=== PATIENT | female | born 1950 | race Caucasian/White ===

== ENCOUNTER 2022-09-15 15:08 | Observation (INO) ==
[2022-09-15 16:11] LABS: Basophils # (auto) 0.03 K/uL (0-0.2); Basophils % (auto) 0.3 %; Eosinophils # (auto) 0.09 K/uL (0-0.50); Hematocrit (blood only) 35.4 % (37.0-47.0); Hemoglobin 13.4 g/dl (12.0-16.0); Immature Granulocytes # (auto) 0.02 K/uL (0.01-0.20); Immature Granulocytes % (auto) 0.2 %; Lymphocytes # (auto) 1.46 K/uL (1.2-3.4); Lymphocytes % (auto) 15.6 %; Mean Corpuscular Hemoglobin 33.3 pg (25.0-34.0); Mean Corpuscular Hgb Conc 37.9 g/dL (32.0-36.0); Mean Corpuscular Volume 87.8 fL (80.0-100.0); Mean Platelet Volume 9.5 fL (9.4-12.4); Monocytes # (auto) 0.81 K/uL (0.11-0.59); Monocytes % (auto) 8.7 %; Neutrophils # (auto) 6.92 K/uL (1.40-6.50); Neutrophils % (auto) 74.2 %; Platelet Count 228 K/uL (130-400); RDW Standard Deviation 41.7 fL (36.4-46.3); Red Blood Count 4.03 M/uL (4.20-5.40); White Blood Count 9.33 K/ul (4.8-10.8)
[2022-09-15 16:29] LABS: Albumin Level 4.1 gm/dl (3.4-5.0); Bilirubin,Total 0.7 mg/dl (0.2-1.0); Calcium 8.7 mg/dl (8.6-10.3); Potassium 2.9 mmol/L (3.5-5.1)
[2022-09-15] MEDS ORDERED: SODIUM CHLORIDE 0.9% 1000ML 1,000 ML IV ONE (16:31)
[2022-09-15] MEDS ORDERED: POTASSIUM CHLORIDE CRTAB 20 MEQ TABCR PO STA (16:33)
[2022-09-15 16:35] LABS: Albumin Globulin Ratio 1.8 (0.9-2); BUN Creatinine Ratio 14.3 (10-20); Creatinine Clr Calc Pharmacy 42.9 ml/min; Est GFR (African American) 68.2 ml/min; Est GFR (Non-African American) 58.9 ml/min; Globulin 2.3 gm/dl (2.5-4.0); Total Protein 6.4 gm/dl (6.0-8.3)
[2022-09-15] MEDS: POTASSIUM CHLORIDE / WTR 10 MEQ/100 ML PLCT IV SCH ×2 (17:16→18:47)
--- NOTE | 2022-09-15 17:21 | XRay Report ---
XR chest 1V portable HISTORY: 71 years-old Female weakness acute weakness COMPARISON: CTA chest 08/23/2022 TECHNIQUE: AP view of the chest FINDINGS: Cardiomediastinal and hilar silhouettes are within normal limits. Atherosclerosis of the aorta. Emphy sema. There is no pneumothorax, pleural effusion, airspace consolidation or overt pulmonary edema. De generative changes of the shoulders and spine. Cardiac appearance of the distal right clavicle and AC joint. IMPRESSION: Emphysema without acute process. ACT 112: Negative or not required by law. The above report was generated using voice recognition software. It may contain grammatical, syntax o r spelling errors. Electronically signed by: Olu Villagran M.D. 09/15/2022 5:19 PM
[2022-09-15 18:12] LABS: Phosphorus 3.2 mg/dl (2.5-4.9)
[2022-09-15 18:33] LABS: Appearance Urine Clear (Clear); Bacteria Urine Automated Negative (Negative); Bilirubin Urine Negative (Negative); Blood Urine Negative (Negative); Cast Urine Automated 0 /lpf (0-5); Color Urine Yellow; Glucose Urine UA Negative (Negative); Ketones Urine 1+ (Negative); Leukocyte Esterase Urine 1+ (Negative); Nitrite Urine Negative (Negative); Protein Urine Negative (Negative); RBC Urine Automated 0-4 /hpf (0-4); Specific Gravity Urine 1.008 (1.000-1.030); Urobilinogen Urine Negative (Negative); pH Urine 7.5 (4.5-7.5)
--- NOTE | 2022-09-15 19:24 | Emergency Department Note ---
Impression & Plan Recurrent falls, Hyponatremia, Hypokalemia ED Provider Note NAME: YA RIVERA AGE: 71 SEX: F ARRIVES VIA: Walk-In INFORMANT: Patient ED PROVIDER(S): Demetrio Cabral MD CHIEF COMPLAINT: Intermittent weakness and falls PLAN: Disposition: Admit MEDICAL DECISION MAKING: The patient is a pleasant 71-year-old woman with a past medical history of hypertension, AAA, hyperlipidemia, chronic abdominal pain, anxiety on Klonopin who presents to the emergency department via walk-in for evaluation of symptoms of generalized weakness that occurs intermittently where she feels she does not have the strength to keep her self up and has had recurrent falls over the past month. She has been seen in this emergency department over the past month for abdominal pain but had not mentioned her weakness and falls. The patient reports she fell today onto her buttocks but was able to ambulate afterwards. Denies any head strike or loss of consciousness. She denies any chest pain, shortness of breath, cough, congestion. She reports her abdominal pain is not currently active. On arrival the patient is fatigued appearing but no acute distress, afebrile with stable vital signs. She appears clinically dry. She has no focal neurologic deficits. EKG without overt acute ischemia. CXR negative for acute cardiopulmonary process. X-ray of the pelvis and left hip were ordered however the patient declined these images as she only felt she had mild bruising and did not think anything was broken as she has been able to ambulate. WBC, hemoglobin and platelets within normal limits. Chemistry without metabolic acidosis. Sodium 129, similar to prior range of values and potassium 2.9, also similar to prior values. LFTs unremarkable. CPK within normal limits. TSH within normal limits. UA without evidence of infection with epithelial cells present. Serum and urine osmolality are diluted with suspicion for increased free water which may be related to the patient's chronic abdominal symptoms with poor oral intake as well as possible component of anxiety. COVID-19 RNA, ANIRUDH test was negative. Given the patient's recurrent symptoms of weakness leading to fall she does agree with plan for admission for further management where it is suspected her symptoms may be related to her electrolyte abnormalities. Case was discussed with Dr. Cassidy, [facility] hospitalist who will evaluate the patient for admission. Triage Nursing notes reviewed and agree them. Prior/outside medical records reviewed Vital Signs: reviewed Differential diagnosis: Infection, dehydration, metabolic abnormality, hypo/hyperglycemia, electrolyte disturbance, anemia, hypoxia, cardiac sources, intracerebral event, toxicologic, neurologic, as well as other pathologies. ER treatment provided: See below. Diagnostics interpreted by me: ECG: Normal sinus rhythm, 72 bpm, no ectopy, nonspecific ST abnormality, no overt ST elevation or depression, QTc 464, QRS 74 Cardiac Monitoring: An order for continuous cardiac monitoring was placed and demonstrated Normal sinus rhythm, 72 bpm, no ectopy Laboratory studies: See below Imaging studies: See below Consultation(s): Case was discussed with Dr. Cassidy, [facility] Hospitalist who will evaluate the patient for admission. HPI: The patient is a pleasant 71-year-old woman with a past medical history of hypertension, AAA, hyperlipidemia, chronic abdominal pain, anxiety on Klonopin who presents to the emergency department via walk-in for evaluation of symptoms of generalized weakness that occurs intermittently where she feels she does not have the strength to keep her self up and has had recurrent falls over the past month. She has been seen in this emergency department over the past month for abdominal pain but had not mentioned her weakness and falls. The patient reports she fell today onto her buttocks but was able to ambulate afterwards. Denies any head strike or loss of consciousness. She denies any chest pain, shortness of breath, cough, congestion. She reports her abdominal pain is not currently active. ROS: See above HPI for pertinent positives & negatives. A total of 10 systems reviewed and were otherwise negative. VITALS:See Below PHYSICAL EXAMINATION: GENERAL: Awake, alert, fatigued/anxious-appearing, in no distress HENT: Normocephalic, atraumatic. Oropharynx with dry mucous membranes and otherwise unremarkable. EYES: Normal conjunctiva. Sclera non-icteric. EOMI. No nystamgus. PEARRL. NECK: Supple. No nuchal rigidity. FROM. No JVD. RESPIRATORY: Clear to auscultation. CARDIAC: Regular rate, normal rhythm. Extremities warm and well perfused. Pulses equal. ABDOMEN: Soft, non-distended. No tenderness to palpation. No rebound or guarding. No masses. RECTAL: Deferred. MUSCULOSKELETAL: Chest examination reveals no tenderness. The back is s ymmetrical on inspection without obvious abnormality. There is no CVA tenderness to palpation. No joint edema. LOWER EXTREMITIES: Calves are equal size bilaterally and non-tender. No edema. No discoloration. NEURO: No focal sensory or motor deficits noted. 5/5 strength and SILT x 4 extremities. Cerebellar function intact including [id number], alternating palms, [id number]. DTRs wnl. No clonus. SKIN: No rash or jaundice noted. Demetrio Cabral MD Past Med/Surg History Medical History AAA (abdominal aortic aneurysm) Anxiety COPD (chronic obstructive pulmonary disease) Dyslipidemia GERD (gastroesophageal reflux disease) Hypertension Surgical History S/P tubal ligation Family History Other Diabetes Social History Smoking Status: Current every day smoker Tobacco Type: Cigarettes packs per day: 0.5; Cigarettes Per Day: 10; Second Hand Exposure: No; Do You Dip or Chew Tobacco: No; Tobacco Cessation Education Requested by Patient: Yes Hx Alcohol Use: No Hx Substance Use: No Preferred Language: Turkmen Communication Ability: Effective Indoor Plant Technician Required: No Beliefs That Will Affect Care: None Current Living Situation: Alone Other Information That Helps Us Care for You: No Feels Safe at Home: Yes Safety Concerns: Feels Safe At This Time Assistive Devices: None Allergies Allergies Allergy/AdvReac Type Severity Reaction Status Date / Time amoxicillin [From Augmentin] AdvReac Intermediate ABD Verified 09/09/22 16:31 PAIN/VOMITING azithromycin [From Zithromax] AdvReac Intermediate Diarrhea Verified 09/09/22 16:31 clavulanic acid AdvReac Intermediate ABD Verified 09/09/22 16:31 [From Augmentin] PAIN/VOMITING doxycycline AdvReac Intermediate Diarrhea Verified 09/09/22 16:31 Macrolide Antibiotics AdvReac Intermediate Diarrhea Verified 09/09/22 16:31 salicylates AdvReac Intermediate INTOLERANCE Verified 09/09/22 16:31 Tetracyclines AdvReac Intermediate Diarrhea Verified 09/09/22 16:31 Home Meds Home Medications Medication Instructions Recorded Confirmed atenolol 25 mg tablet 25 mg PO HS 04/14/19 09/15/22 multivitamin 1 tab PO QAM 04/14/19 09/15/22 simvastatin 20 mg tablet (Zocor) 20 mg PO HS 04/14/19 09/15/22 hydrochlorothiazide 12.5 mg capsule 12.5 mg PO QAM 04/21/22 09/15/22 albuterol sulfate 90 mcg/actuation 2 puff inhalation BID PRN 08/23/22 09/15/22 aerosol inhaler Shortness Of Breath Or Wheezing clonazepam 0.5 mg tablet 0.25 mg PO BID PRN Anxiety 08/23/22 09/15/22 escitalopram oxalate 10 mg tablet 10 mg PO QAM 08/23/22 09/15/22 trazodone 50 mg tablet 50 mg PO HS PRN Insomnia 08/23/22 09/15/22 cyclobenzaprine 5 mg tablet 5 mg PO TID PRN MUSCLE SPASMS 09/09/22 09/15/22 dicyclomine 10 mg capsule 20 mg PO .Q4-6H PRN Abdominal Pain 09/09/22 09/15/22 pantoprazole 20 mg tablet,delayed 20 mg PO QAM 09/09/22 09/15/22 release hydroxyzine HCl 25 mg tablet 25 mg PO Q6 PRN Anxiety 09/15/22 09/15/22 mirtazapine 15 mg tablet 15 mg PO HS 09/15/22 09/15/22 Previous Rx's Medication Instructions Recorded promethazine 25 mg tablet 25 mg PO Q6H PRN nausea and 08/23/22 vomiting #14 tabs Results & Data (ED) Vital Signs Vital Signs - 24 hr 09/15/22 15:12 09/15/22 15:45 09/15/22 16:48 Temperature 36.8 C Temperature Source Temporal Artery Scan Pulse Rate 88 78 Pulse Rate [Left Apical] 76 Respiratory Rate 20 16 Respiratory Effort / Characteristics Non-Labored Spontaneous Respiratory Depth Normal Blood Pressure 128/78 Blood Pressure [Right Arm] 176/82 H Blood Pressure Mean 94 Blood Pressure Mean [Right Arm] 113 Pulse Oximetry 98 99 Oxygen Delivery Method Room Air Room Air Sepsis Recent Fever Within 48 Hours No Sepsis New/Unexplained Change in Mental Status No Sepsis Action Taken by Nursing No Action Required 09/15/22 16:00 09/15/22 16:30 09/15/22 17:00 Temperature Temperature Source Pulse Rate 76 75 74 Pulse Rate [Left Apical] Respiratory Rate 20 19 21 Respiratory Effort / Characteristics Respiratory Depth Blood Pressure 182/68 H 109/78 168/85 H Blood Pressure [Right Arm] Blood Pressure Mean 106 88 112 Blood Pressure Mean [Right Arm] Pulse Oximetry 98 94 98 Oxygen Delivery Method Room Air Room Air Room Air Sepsis Recent Fever Within 48 Hours Sepsis New/Unexplained Change in Mental Status Sepsis Action Taken by Nursing 09/15/22 17:30 09/15/22 18:09 09/15/22 18:39 Temperature Temperature Source Pulse Rate 75 68 68 Pulse Rate [Left Apical] Respiratory Rate 23 20 21 Respiratory Effort / Characteristics Respiratory Depth Blood Pressure 176/83 H 162/93 H 183/99 H Blood Pressure [Right Arm] Blood Pressure Mean 114 116 127 Blood Pressure Mean [Right Arm] Pulse Oximetry 96 100 98 Oxygen Delivery Method Room Air Room Air Room Air Sepsis Recent Fever Within 48 Hours Sepsis New/Unexplained Change in Mental Status Sepsis Action Taken by Nursing 09/15/22 19:01 09/15/22 19:30 09/15/22 20:00 Temperature Temperature Source Pulse Rate 74 75 69 Pulse Rate [Left Apical] Respiratory Rate 24 22 24 Respiratory Effort / Characteristics Respiratory Depth Blood Pressure 221/104 H 230/137 H 204/97 H Blood Pressure [Right Arm] Blood Pressure Mean 143 168 132 Blood Pressure Mean [Right Arm] Pulse Oximetry 99 99 97 Oxygen Delivery Method Room Air Room Air Room Air Sepsis Recent Fever Within 48 Hours Sepsis New/Unexplained Change in Mental Status Sepsis Action Taken by Nursing 09/15/22 20:30 Temperature Temperature Source Pulse Rate 76 Pulse Rate [Left Apical] Respiratory Rate 16 Respiratory Effort / Characteristics Respiratory Depth Blood Pressure 211/99 H Blood Pressure [Right Arm] Blood Pressure Mean 136 Blood Pressure Mean [Right Arm] Pulse Oximetry 98 Oxygen Delivery Method Room Air Sepsis Recent Fever Within 48 Hours Sepsis New/Unexplained Change in Mental Status Sepsis Action Taken by Nursing Laboratory Data Attestation: I reviewed the patient's lab results. 09/15/22 15:51 09/15/22 15:51 Lab Results 09/15/22 09/15/22 09/15/22 Range/Units 15:51 15:51 15:51 WBC 9.33 (4.8-10.8) K/ul RBC 4.03 L (4.20-5.40) M/uL Hgb 13.4 (12.0-16.0) g/dl Hct 35.4 L (37.0-47.0) % MCV 87.8 (80.0-100.0) fL MCH 33.3 (25.0-34.0) pg MCHC 37.9 H (32.0-36.0) g/dL RDW Std Deviation 41.7 (36.4-46.3) fL RDW Coeff of Yamile 13.0 (11.5-14.5) % Plt Count 228 (130-400) K/uL MPV 9.5 (9.4-12.4) fL Immature Gran % (Auto) 0.2 % Neut % (Auto) 74.2 % Lymph % (Auto) 15.6 % Mclean % (Auto) 8.7 % Eos % (Auto) 1.0 % Baso % (Auto) 0.3 % Neut # (Auto) 6.92 H (1.40-6.50) K/uL Lymph # (Auto) 1.46 (1.2-3.4) K/uL Mclean # (Auto) 0.81 H (0.11-0.59) K/uL Eos # (Auto) 0.09 (0-0.50) K/uL Baso # (Auto) 0.03 (0-0.2) K/uL Immature Gran # (Auto) 0.02 (0.01-0.20) K/uL Sodium 129 L (136-145) mmol/L Potassium 2.9 L (3.5-5.1) mmol/L Chloride 91 L (98-107) mmol/L Carbon Dioxide 28 (21-32) mmol/L Anion Gap 10 (3-11) BUN 14 (6-23) mg/dl Creatinine 0.98 (0.6-1.2) mg/dl Est Cr Clr Drug Dosing 42.9 ml/min Est GFR ( Amer) 68.2 ml/min Est GFR (Non-Af Amer) 58.9 ml/min BUN/Creatinine Ratio 14.3 (10-20) Glucose 102 H (70-99(Fasting)) mg/dl Osmolality (280-300) mOsm/kg Lactate (0.4-2.0) mmol/L Calcium 8.7 (8.6-10.3) mg/dl Phosphorus 3.2 (2.5-4.9) mg/dl Magnesium 2.0 (1.7-2.4) mg/dl Total Bilirubin 0.7 (0.2-1.0) mg/dl AST 15 (13-39) U/L ALT 14 (7-52) U/L Alkaline Phosphatase 43 (34-104) U/L Total Creatine Kinase 75 (26-192) U/L Total Protein 6.4 (6.0-8.3) gm/dl Albumin 4.1 (3.4-5.0) gm/dl Globulin 2.3 L (2.5-4.0) gm/dl Albumin/Globulin Ratio 1.8 (0.9-2) TSH (0.300-4.500) uIu/ml Urine Color Urine Appearance (Clear) Urine pH (4.5-7.5) Ur Specific [place] (1.000-1.030) Urine Protein (Negative) Urine Glucose (UA) (Negative) Urine Ketones (Negative) Urine Blood (Negative) Urine Nitrite (Negative) Urine Bilirubin (Negative) Urine Urobilinogen (Negative) Ur Leukocyte Esterase (Negative) Urine WBC (Auto) (0-5) /hpf Urine RBC (Auto) (0-4) /hpf U Hyaline Cast (Auto) (0-5) /lpf U Epithel Cells (Auto) (0-5) /lpf Urine Bacteria (Auto) (Negative) Urine Osmolality (500-800) mOsm/kg Ur Random Sodium mmol/L SARS-CoV-2, RNA, NAAT (NEGATIVE) 09/15/22 09/15/22 09/15/22 Range/Units 15:51 15:51 17:27 WBC (4.8-10.8) K/ul RBC (4.20-5.40) M/uL Hgb (12.0-16.0) g/dl Hct (37.0-47.0) % MCV (80.0-100.0) fL MCH (25.0-34.0) pg MCHC (32.0-36.0) g/dL RDW Std Deviation (36.4-46.3) fL RDW Coeff of Yamile (11.5-14.5) % Plt Count (130-400) K/uL MPV (9.4-12.4) fL Immature Gran % (Auto) % Neut % (Auto) % Lymph % (Auto) % Mclean % (Auto) % Eos % (Auto) % Baso % (Auto) % Neut # (Auto) (1.40-6.50) K/uL Lymph # (Auto) (1.2-3.4) K/uL Mclean # (Auto) (0.11-0.59) K/uL Eos # (Auto) (0-0.50) K/uL Baso # (Auto) (0-0.2) K/uL Immature Gran # (Auto) (0.01-0.20) K/uL Sodium (136-145) mmol/L Potassium (3.5-5.1) mmol/L Chloride (98-107) mmol/L Carbon Dioxide (21-32) mmol/L Anion Gap (3-11) BUN (6-23) mg/dl Creatinine (0.6-1.2) mg/dl Est Cr Clr Drug Dosing ml/min Est GFR ( Amer) ml/min Est GFR (Non-Af Amer) ml/min BUN/Creatinine Ratio (10-20) Glucose (70-99(Fasting)) mg/dl Osmolality 266 L (280-300) mOsm/kg Lactate (0.4-2.0) mmol/L Calcium (8.6-10.3) mg/dl Phosphorus (2.5-4.9) mg/dl Magnesium (1.7-2.4) mg/dl Total Bilirubin (0.2-1.0) mg/dl AST (13-39) U/L ALT (7-52) U/L Alkaline Phosphatase (34-104) U/L Total Creatine Kinase (26-192) U/L Total Protein (6.0-8.3) gm/dl Albumin (3.4-5.0) gm/dl Globulin (2.5-4.0) gm/dl Albumin/Globulin Ratio (0.9-2) TSH 0.548 (0.300-4.500) uIu/ml Urine Color Urine Appearance (Clear) Urine pH (4.5-7.5) Ur Specific [place] (1.000-1.030) Urine Protein (Negative) Urine Glucose (UA) (Negative) Urine Ketones (Negative) Urine Blood (Negative) Urine Nitrite (Negative) Urine Bilirubin (Negative) Urine Urobilinogen (Negative) Ur Leukocyte Esterase (Negative) Urine WBC (Auto) (0-5) /hpf Urine RBC (Auto) (0-4) /hpf U Hyaline Cast (Auto) (0-5) /lpf U Epithel Cells (Auto) (0-5) /lpf Urine Bacteria (Auto) (Negative) Urine Osmolality (500-800) mOsm/kg Ur Random Sodium mmol/L SARS-CoV-2, RNA, NAAT NEGATIVE (NEGATIVE) 09/15/22 09/15/22 09/15/22 Range/Units 18:20 18:20 18:20 WBC (4.8-10.8) K/ul RBC (4.20-5.40) M/uL Hgb (12.0-16.0) g/dl Hct (37.0-47.0) % MCV (80.0-100.0) fL MCH (25.0-34.0) pg MCHC (32.0-36.0) g/dL RDW Std Deviation (36.4-46.3) fL RDW Coeff of Yamile (11.5-14.5) % Plt Count (130-400) K/uL MPV (9.4-12.4) fL Immature Gran % (Auto) % Neut % (Auto) % Lymph % (Auto) % Mclean % (Auto) % Eos % (Auto) % Baso % (Auto) % Neut # (Auto) (1.40-6.50) K/uL Lymph # (Auto) (1.2-3.4) K/uL Mclean # (Auto) (0.11-0.59) K/uL Eos # (Auto) (0-0.50) K/uL Baso # (Auto) (0-0.2) K/uL Immature Gran # (Auto) (0.01-0.20) K/uL Sodium (136-145) mmol/L Potassium (3.5-5.1) mmol/L Chloride (98-107) mmol/L Carbon Dioxide (21-32) mmol/L Anion Gap (3-11) BUN (6-23) mg/dl Creatinine (0.6-1.2) mg/dl Est Cr Clr Drug Dosing ml/min Est GFR ( Amer) ml/min Est GFR (Non-Af Amer) ml/min BUN/Creatinine Ratio (10-20) Glucose (70-99(Fasting)) mg/dl Osmolality (280-300) mOsm/kg Lactate (0.4-2.0) mmol/L Calcium (8.6-10.3) mg/dl Phosphorus (2.5-4.9) mg/dl Magnesium (1.7-2.4) mg/dl Total Bilirubin (0.2-1.0) mg/dl AST (13-39) U/L ALT (7-52) U/L Alkaline Phosphatase (34-104) U/L Total Creatine Kinase (26-192) U/L Total Protein (6.0-8.3) gm/dl Albumin (3.4-5.0) gm/dl Globulin (2.5-4.0) gm/dl Albumin/Globulin Ratio (0.9-2) TSH (0.300-4.500) uIu/ml Urine Color Yellow Urine Appearance Clear (Clear) Urine pH 7.5 (4.5-7.5) Ur Specific [place] 1.008 (1.000-1.030) Urine Protein Negative (Negative) Urine Glucose (UA) Negative (Negative) Urine Ketones 1+ H (Negative) Urine Blood Negative (Negative) Urine Nitrite Negative (Negative) Urine Bilirubin Negative (Negative) Urine Urobilinogen Negative (Negative) Ur Leukocyte Esterase 1+ H (Negative) Urine WBC (Auto) 1-5 (0-5) /hpf Urine RBC (Auto) 0-4 (0-4) /hpf U Hyaline Cast (Auto) 0 (0-5) /lpf U Epithel Cells (Auto) 5-10 H (0-5) /lpf Urine Bacteria (Auto) Negative (Negative) Urine Osmolality 260 L (500-800) mOsm/kg Ur Random Sodium 40 mmol/L SARS-CoV-2, RNA, NAAT (NEGATIVE) 09/15/22 09/15/22 Range/Units 20:41 20:41 WBC (4.8-10.8) K/ul RBC (4.20-5.40) M/uL Hgb (12.0-16.0) g/dl Hct (37.0-47.0) % MCV (80.0-100.0) fL MCH (25.0-34.0) pg MCHC (32.0-36.0) g/dL RDW Std Deviation (36.4-46.3) fL RDW Coeff of Yamile (11.5-14.5) % Plt Count (130-400) K/uL MPV (9.4-12.4) fL Immature Gran % (Auto) % Neut % (Auto) % Lymph % (Auto) % Mclean % (Auto) % Eos % (Auto) % Baso % (Auto) % Neut # (Auto) (1.40-6.50) K/uL Lymph # (Auto) (1.2-3.4) K/uL Mclean # (Auto) (0.11-0.59) K/uL Eos # (Auto) (0-0.50) K/uL Baso # (Auto) (0-0.2) K/uL Immature Gran # (Auto) (0.01-0.20) K/uL Sodium 130 L (136-145) mmol/L Potassium (3.5-5.1) mmol/L Chloride (98-107) mmol/L Carbon Dioxide (21-32) mmol/L Anion Gap (3-11) BUN (6-23) mg/dl Creatinine (0.6-1.2) mg/dl Est Cr Clr Drug Dosing ml/min Est GFR ( Amer) ml/min Est GFR (Non-Af Amer) ml/min BUN/Creatinine Ratio (10-20) Glucose (70-99(Fasting)) mg/dl Osmolality (280-300) mOsm/kg Lactate 0.8 (0.4-2.0) mmol/L Calcium (8.6-10.3) mg/dl Phosphorus (2.5-4.9) mg/dl Magnesium (1.7-2.4) mg/dl Total Bilirubin (0.2-1.0) mg/dl AST (13-39) U/L ALT (7-52) U/L Alkaline Phosphatase (34-104) U/L Total Creatine Kinase (26-192) U/L Total Protein (6.0-8.3) gm/dl Albumin (3.4-5.0) gm/dl Globulin (2.5-4.0) gm/dl Albumin/Globulin Ratio (0.9-2) TSH (0.300-4.500) uIu/ml Urine Color Urine Appearance (Clear) Urine pH (4.5-7.5) Ur Specific [place] (1.000-1.030) Urine Protein (Negative) Urine Glucose (UA) (Negative) Urine Ketones (Negative) Urine Blood (Negative) Urine Nitrite (Negative) Urine Bilirubin (Negative) Urine Urobilinogen (Negative) Ur Leukocyte Esterase (Negative) Urine WBC (Auto) (0-5) /hpf Urine RBC (Auto) (0-4) /hpf U Hyaline Cast (Auto) (0-5) /lpf U Epithel Cells (Auto) (0-5) /lpf Urine Bacteria (Auto) (Negative) Urine Osmolality (500-800) mOsm/kg Ur Random Sodium mmol/L SARS-CoV-2, RNA, NAAT (NEGATIVE) Administered Medications Melatonin (Melatonin 3 Mg Tab) 3 mg PO HS PRN PRN Reason: Sleep Stop: 10/16/22 00:00 Last Admin: 09/16/22 01:03 Dose: 3 mg Documented By: DELONTE Mirtazapine (Mirtazapine Tab 15 Mg Tab) 15 mg PO HS KEELY Stop: 10/15/22 23:35 Last Admin: 09/16/22 01:04 Dose: 15 mg Documented By: DELONTE Simvastatin (Simvastatin 20 Mg Tab) 20 mg PO HS [facility] Stop: 10/15/22 23:35 Last Admin: 09/16/22 01:04 Dose: 20 mg Documented By: DELONTE Discontinued Medications Atenolol (Atenolol 25 Mg Tablet) 25 mg PO NOW STA Stop: 09/15/22 20:11 Last Admin: 09/15/22 20:38 Dose: 25 mg Documented By: TYRONE Sodium Chloride (Nss 1000ml) 1,000 mls @ 999 mls/hr IV .Q1H1M ONE Stop: 09/15/22 17:31 Last Infusion: 09/15/22 20:03 Dose: 0 mls/hr Documented By: Admin: 09/15/22 17:17 Dose: 999 mls/hr Documented By: TYRONE Potassium Chloride (K Jb / Wtr) 10 meq in 100 mls @ 100 mls/hr IV Q1H KEELY Stop: 09/15/22 18:44 Last Infusion: 09/15/22 20:03 Dose: 0 mls/hr Documented By: Admin: 09/15/22 18:47 Dose: 100 mls/hr Documented By: Infusion: 09/15/22 18:16 Dose: 100 mls/hr Documented By: Admin: 09/15/22 17:16 Dose: 100 mls/hr Documented By: TYRONE Potassium Chloride (Potassium Chloride Crtab 20 Meq Tabcr) 40 meq PO NOW STA Stop: 09/15/22 16:34 Last Admin: 09/15/22 17:16 Dose: 40 meq Documented By: OSITO Imaging Data Radiologist's Impression: Chest X-Ray 09/15/22 16:32 XR chest 1V portable HISTORY: 71 years-old Female weakness acute weakness COMPARISON: CTA chest 08/23/2022 TECHNIQUE: AP view of the chest FINDINGS: Cardiomediastinal and hilar silhouettes are within normal limits. Atherosclerosis of the aorta. Emphysema. There is no pneumothorax, pleural effusion, airspace consolidation or overt pulmonary edema. Degenerative changes of the shoulders and spine. Cardiac appearance of the distal right clavicle and AC joint. IMPRESSION: Emphysema without acute process. ACT 112: Negative or not required by law. The above report was generated using voice recognition software. It may contain grammatical, syntax or spelling errors. Electronically signed by: Olu Villagran M.D. 09/15/2022 5:19 PM Discharge Plan Visit Data Chief Complaint: Fall Stated Complaint: FELL AND WANTS AN EVAL ED Provider: Demetrio Cabral Discharge Problem: Recurrent falls, Hyponatremia, Hypokalemia Patient Disposition: Admitted As Inpatient Discharge Instructions Interventions: ED Discharge Assessment Last Done: 09/15/22 22:49
--- NOTE | 2022-09-15 19:51 | History & Physical Report ---
Date of Service September 15, 2022 Assessment & Plan (1) Hyponatremia: (2) Hypokalemia: (3) Recurrent falls: (4) Hypertension: (5) Dyslipidemia: (6) COPD (chronic obstructive pulmonary disease): (7) GERD (gastroesophageal reflux disease): (8) Anxiety: Plan: Assessment and plan per Dr Cassidy. See addendum History of Present Illness Chief Complaint: Fall Primary Care Provider: Adriel Whitaker MD Patient is 71-year-old female with PMH HTN, dyslipidemia, GERD, anxiety, AAA, COPD presented to ER with c/o recurrent falls x 1 month. Patient states for the past month has been falling almost daily. States her arms will start shaking and then her legs feel "wobbly" and then she will fall. Denies any dizziness, shortness of breath, chest pain prior to fall. This can occur shortly after getting up from a seated position or after walking for a prolonged time. Patient states today was standing at counter trying to cook when her legs felt weak and she fell. Patient states today had some pain to buttocks. Prior falls denies any known injury. Patient states for the past 4 months does not have an appetite and has had decreased oral intake. She states she typically has piece of toast for breakfast and some saltines for lunch, sometimes will eat dinner but most the time does not. Has been drinking 1 Ensure a day. Drinks approximately 32 ounces of water a day, 2 cups coffee. She states she has lost approximately 30 pounds over the past 4 months. Has been having mid abdominal pain intermittently. Seen in ER and had CT scan abdomen pelvis on 08/23/2022. Patient states followed up with PCP and has colonoscopy scheduled in the near future. Denies any abdominal pain currently. She states that she had been taking ibuprofen for her belly pain however provider is now concerned that may be causing some abdominal pain as well. Patient is now taking Protonix. Denies fever/chills, diaphoresis, N/V/D/C, AVILA, dizziness, syncope, vision changes, neck pain, CP, SOB, orthopnea, palpitations, cough, sore throat, choking, otalgia, rhinorrhea, paresthesias, extremity edema, rashes, urinary symptoms. Allergies Allergy/AdvReac Type Severity Reaction Status Date / Time amoxicillin [From Augmentin] AdvReac Intermediate ABD Verified 09/09/22 16:31 PAIN/VOMITING azithromycin [From Zithromax] AdvReac Intermediate Diarrhea Verified 09/09/22 16:31 clavulanic acid AdvReac Intermediate ABD Verified 09/09/22 16:31 [From Augmentin] PAIN/VOMITING doxycycline AdvReac Intermediate Diarrhea Verified 09/09/22 16:31 Macrolide Antibiotics AdvReac Intermediate Diarrhea Verified 09/09/22 16:31 salicylates AdvReac Intermediate INTOLERANCE Verified 09/09/22 16:31 Tetracyclines AdvReac Intermediate Diarrhea Verified 09/09/22 16:31 Home Medications Medication Instructions Recorded Confirmed Type atenolol 25 mg tablet 25 mg PO HS 04/14/19 09/15/22 History multivitamin 1 tab PO QAM 04/14/19 09/15/22 History simvastatin 20 mg tablet (Zocor) 20 mg PO HS 04/14/19 09/15/22 History hydrochlorothiazide 12.5 mg capsule 12.5 mg PO QAM 04/21/22 09/15/22 History albuterol sulfate 90 mcg/actuation 2 puff inhalation BID PRN 08/23/22 09/15/22 History aerosol inhaler Shortness Of Breath Or Wheezing clonazepam 0.5 mg tablet 0.25 mg PO BID PRN Anxiety 08/23/22 09/15/22 History escitalopram oxalate 10 mg tablet 10 mg PO QAM 08/23/22 09/15/22 History promethazine 25 mg tablet 25 mg PO Q6H PRN nausea and 08/23/22 09/15/22 Rx vomiting #14 tabs trazodone 50 mg tablet 50 mg PO HS PRN Insomnia 08/23/22 09/15/22 History cyclobenzaprine 5 mg tablet 5 mg PO TID PRN MUSCLE SPASMS 09/09/22 09/15/22 History dicyclomine 10 mg capsule 20 mg PO .Q4-6H PRN Abdominal Pain 09/09/22 09/15/22 History pantoprazole 20 mg tablet,delayed 20 mg PO QAM 09/09/22 09/15/22 History release hydroxyzine HCl 25 mg tablet 25 mg PO Q6 PRN Anxiety 09/15/22 09/15/22 History mirtazapine 15 mg tablet 15 mg PO HS 09/15/22 09/15/22 History Past Med/Surg History Medical History AAA (abdominal aortic aneurysm) Anxiety COPD (chronic obstructive pulmonary disease) Dyslipidemia GERD (gastroesophageal reflux disease) Hypertension Surgical History S/P tubal ligation Family History Other Diabetes Social History Smoking Status: Current every day smoker Tobacco Type: Cigarettes packs per day: 0.5; Cigarettes Per Day: 10; Second Hand Exposure: No; Do You Dip or Chew Tobacco: No; Tobacco Cessation Education Requested by Patient: Yes Hx Alcohol Use: No Hx Substance Use: No Preferred Language: Azeri Communication Ability: Effective D[employer] Manager Required: No Beliefs That Will Affect Care: None Current Living Situation: Alone Other Information That Helps Us Care for You: No Feels Safe at Home: Yes Safety Concerns: Feels Safe At This Time Assistive Devices: None Review of Systems Review of Systems: All systems reviewed & are unremarkable except as noted in HPI & below Physical Exam Physical Exam: General: no distress, thin, appears older than stated age Head: normocephalic, atraumatic Eyes: conjunctiva non-injected, anicteric ENT: normal inspection external ears, nose, mucous membranes moist Neck: supple, trachea midline Lungs: clear, no respiratory distress, no wheezing/rhonchi/rales CV: RRR, + systolic murmur, no pretibial edema Abd: normal BS, soft, non-tender Ext: no cyanosis, no calf tenderness Neuro: A&O x 3, no focal deficits noted, normal affect Skin: warm, dry Results & Data Results & Data Vital Signs (Past 12 Hours) Vital Signs Temp Pulse Pulse Resp BP BP Pulse Ox 09/15/22 18:39 68 21 183/99 H 98 09/15/22 18:09 68 20 162/93 H 100 09/15/22 17:30 75 23 176/83 H 96 09/15/22 17:00 74 21 168/85 H 98 09/15/22 16:30 75 19 109/78 94 09/15/22 16:00 76 20 182/68 H 98 09/15/22 16:48 78 09/15/22 15:45 76 16 176/82 H 99 09/15/22 15:12 36.8 C 88 20 128/78 98 O2 Del Method 09/15/22 18:39 Room Air 09/15/22 18:09 Room Air 09/15/22 17:30 Room Air 09/15/22 17:00 Room Air 09/15/22 16:30 Room Air 09/15/22 16:00 Room Air 09/15/22 16:48 09/15/22 15:45 Room Air 09/15/22 15:12 Room Air Laboratory Results Short CBC 09/15/22 Range/Units 15:51 WBC 9.33 (4.8-10.8) K/ul Hgb 13.4 (12.0-16.0) g/dl Hct 35.4 L (37.0-47.0) % Plt Count 228 (130-400) K/uL BMP 09/15/22 15:51 Sodium 129 L Potassium 2.9 L Chloride 91 L Carbon Dioxide 28 BUN 14 Creatinine 0.98 Glucose 102 H Calcium 8.7 Cardiac Enzymes 09/15/22 Range/Units 15:51 Total Creatine Kinase 75 (26-192) U/L Liver Function 09/15/22 Range/Units 15:51 Total Bilirubin 0.7 (0.2-1.0) mg/dl AST 15 (13-39) U/L ALT 14 (7-52) U/L Alkaline Phosphatase 43 (34-104) U/L Albumin 4.1 (3.4-5.0) gm/dl Urine 09/15/22 Range/Units 18:20 Urine Color Yellow Urine Appearance Clear (Clear) Urine pH 7.5 (4.5-7.5) Ur Specific [place] 1.008 (1.000-1.030) Urine Protein Negative (Negative) Urine Glucose (UA) Negative (Negative) Diagnostic Findings Chest X-Ray 09/15/22 16:32 XR chest 1V portable HISTORY: 71 years-old Female weakness acute weakness COMPARISON: CTA chest 08/23/2022 TECHNIQUE: AP view of the chest FINDINGS: Cardiomediastinal and hilar silhouettes are within normal limits. Atherosclerosis of the aorta. Emphysema. There is no pneumothorax, pleural effusion, airspace consolidation or overt pulmonary edema. Degenerative changes of the shoulders and spine. Cardiac appearance of the distal right clavicle and AC joint. IMPRESSION: Emphysema without acute process. ACT 112: Negative or not required by law. The above report was generated using voice recognition software. It may contain grammatical, syntax or spelling errors. Electronically signed by: Olu Villagran M.D. 09/15/2022 5:19 PM Supervising Physician Co-Signing Physician Notes IM ATTENDING : Patient seen and examined. History obtained from patient and records. Preceding documentation by Ms. Cassy Grant PA-C reviewed. FINAL ASSESSMENT AND PLAN as follows : Hypertensive crisis secondary to anxiety hx OCD as per records Hyponatremia, possible hypovolemic secondary to ketonuria secondary to decreased p.o. intake from chronic abdominal pain (possible PUD versus vascular disease given celiac artery stenosis on imaging last month (patient denies postprandial worsening of pain however), home diuretic contributory Hypokalemia secondary to home diuretic Rx Cerebral aneurysm, [place] [facility] [place] (2.7 mm infrarenal AAA noted on last month's imaging) Ongoing tobacco abuse Malnutrition (low BMI) PCU anxiolytic as needed Facilitate nighttime beta-donovan, initiate lisinopril if with persistent BP elevation Monitor serum sodium response to initial IVF bolus given at the ER Appropriate to hold home HCTZ for now Replace potassium GI consult Re: Abdominal pain, weight loss N.p.o. until patient seen by GI in anticipation of endoscopy. Outpatient follow-up imaging for AAA Nicotine patch Nutrition consult Re: Low BMI DVT prophylaxis. Heparin subcu Full code Text document was generated using [employer] voice recognition software. It may contain grammatical or spelling errors. Kindly contact undersigned for clarification of any documentation item in question.
[2022-09-15] MEDS ORDERED: ATENOLOL 25 MG TABLET PO STA (20:10)
[2022-09-15] MEDS ORDERED: LORazepam 2 MG/1 ML VIAL IV PRN (21:21)
[2022-09-15] MEDS ORDERED: traMADol HCL 50 MG TABLET PO PRN (21:21)
[2022-09-15] MEDS ORDERED: PROMETHAZINE HCL 6.25 MG in SODIUM CHLORIDE 0.9% 50 ML IV PRN (21:21)
[2022-09-15] MEDS ORDERED: oxyCODONE HCL IR 5 MG TAB (IMMEDIATE RELEASE) PO PRN (21:40)
[2022-09-15] MEDS ORDERED: clonazePAM 0.25 MG TAB PO PRN (23:36)
[2022-09-15] MEDS ORDERED: hydrOXYzine HCl 25 MG TAB PO PRN (23:36)
[2022-09-15] MEDS ORDERED: MIRTAZAPINE TAB 15 MG TAB PO SCH (23:36)
[2022-09-15] MEDS ORDERED: SIMVASTATIN 20 MG TAB PO SCH (23:36)
[2022-09-15] MEDS ORDERED: ACETAMINOPHEN 325 MG TAB PO PRN (23:36)
[2022-09-15] MEDS ORDERED: traZODone HCL 50 MG TAB PO PRN (23:36)
[2022-09-16] MEDS ORDERED: MELATONIN 3 MG TAB PO PRN (00:01)
[2022-09-16] MEDS ORDERED: lisinopril 2.5 MG TAB PO SCH (04:55)
--- NOTE | 2022-09-16 05:50 | Electrocardiogram Report ---
Test Reason : Blood Pressure : / mmHG Vent. Rate : 072 BPM Atrial Rate : 072 BPM P-R Int : 164 ms QRS Dur : 074 ms QT Int : 424 ms P-R-T Axes : 063 043 077 degrees QTc Int : 464 ms Normal sinus rhythm Possible Left atrial enlargement Nonspecific ST abnormality Abnormal ECG When compared with ECG of 23-AUG-2022 15:25, No significant change was found Confirmed by Raul Zhou ([id number]) on 09/16/2022 5:50:01 AM Referred By: Confirmed By:Raul Zhou
[2022-09-16] MEDS: HEPARIN SOD 5,000 UNIT/0.5 ML VIAL SQ SCH ×2 (05:57→13:56)
[2022-09-16 06:48] LABS: Basophils # (auto) 0.06 K/uL (0-0.2); Basophils % (auto) 0.7 %; Eosinophils # (auto) 0.17 K/uL (0-0.50); Eosinophils % (auto) 2.1 %; Hematocrit (blood only) 33.4 % (37.0-47.0); Hemoglobin 12.1 g/dl (12.0-16.0); Immature Granulocytes # (auto) 0.02 K/uL (0.01-0.20); Immature Granulocytes % (auto) 0.2 %; Lymphocytes % (auto) 22.1 %; Mean Corpuscular Hemoglobin 32.5 pg (25.0-34.0); Mean Corpuscular Hgb Conc 36.2 g/dL (32.0-36.0); Mean Corpuscular Volume 89.8 fL (80.0-100.0); Mean Platelet Volume 9.6 fL (9.4-12.4); Monocytes # (auto) 0.82 K/uL (0.11-0.59); Monocytes % (auto) 10.1 %; Neutrophils # (auto) 5.26 K/uL (1.40-6.50); Neutrophils % (auto) 64.8 %; Platelet Count 202 K/uL (130-400); RDW Coefficient of Variation 13.3 % (11.5-14.5); RDW Standard Deviation 43.9 fL (36.4-46.3); Red Blood Count 3.72 M/uL (4.20-5.40); White Blood Count 8.13 K/ul (4.8-10.8)
[2022-09-16 07:43] LABS: Calcium 8.4 mg/dl (8.6-10.3); Potassium 3.4 mmol/L (3.5-5.1)
[2022-09-16 07:49] LABS: BUN Creatinine Ratio 13.5 (10-20); Creatinine Clr Calc Pharmacy 59.6 ml/min; Est GFR (African American) 95.8 ml/min; Est GFR (Non-African American) 82.7 ml/min
[2022-09-16] MEDS ORDERED: MULTIVITAMIN TAB PO SCH (09:00)
[2022-09-16] MEDS ORDERED: ESCITALOPRAM OXALATE 10 MG TAB PO SCH (09:00)
[2022-09-16] MEDS ORDERED: PANTOprazole 40 MG TAB PO SCH (09:00)
--- NOTE | 2022-09-16 10:35 | Gastrointestinal Consultation ---
Date of Consultation September 16, 2022 Assessment & Plan (1) Abdominal pain: (2) Recurrent falls: Pt is a 71 yo female admitted for recurrent falls, seen today for abd pain and unintentional weight loss. No n/v, changes in bowels habits. 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 + NSAID uses for abd pain as well. DDX: PUD, gastritis, pain related to celiac artery stenosis, IBS. Exam today benign wo pain and no masses palpated. She wants to start diet. - Check TSH, TTG IgA Ab, ESR, CRP - Never had endoscopies before, currently scheduled for EGD and colonoscopy on 10/21/2022 - Keep aptt with Vascular Surgery on - If loose stools symptoms, obtain stool studies to r/o infections - Avoid NSAIDs, tobacco products. - Dicyclomine 10mg BID prn pain rather than NSAIDs or narcotics - GI to sign off; pls recall prn Supervising Physician Co-Signing Physician Notes I have seen and examined the patient with MARIBEL Estevez whose note reflects our findings and plan. History of Present Illness Reason for Consultation: Abdominal pain Requesting Physician: Dr. Vu Cano Attending Physician: Dr. Vita Alex History of Present Illness Patient is a 71 years old female who is admitted for falls, seen in consultation for abdominal pain symptoms. She has a past medical history of hypertension, dyslipidemia, GERD, anxiety, AAA, COPD. Patient reports that she gets intermittent mid abdominal pain for many months now. Pain is described as dull and constant, not sharp. Sometimes it may come on at 1 PM in the afternoon lasting for hours. She denies any associated fevers, chills, chest pain, shortness of breath, nausea or vomiting. She also reports that her bowels are moving regularly without any straining or rectal bleeding. She does not feel that the abdominal pain is associated with eating nor does it make her feel that she needs to defecate. She does have unintentional weight loss about 30 pounds since March 2022. She does take 4 tablets of Advil and sometimes Tylenol to help with the pain. She is currently scheduled to undergo EGD and colonoscopy on October 21 to work-up her abdominal pain and weight loss symptoms. 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 She has a vascular surgery appointment coming up with Dr. Garcia on November 03. Hx of tubal ligation + tobacco use, denies ETOH, illicit drugs Denies family hx GI malignancy Allergies Allergy/AdvReac Type Severity Reaction Status Date / Time amoxicillin [From Augmentin] AdvReac Intermediate ABD Verified 09/09/22 16:31 PAIN/VOMITING azithromycin [From Zithromax] AdvReac Intermediate Diarrhea Verified 09/09/22 16:31 clavulanic acid AdvReac Intermediate ABD Verified 09/09/22 16:31 [From Augmentin] PAIN/VOMITING doxycycline AdvReac Intermediate Diarrhea Verified 09/09/22 16:31 Macrolide Antibiotics AdvReac Intermediate Diarrhea Verified 09/09/22 16:31 salicylates AdvReac Intermediate INTOLERANCE Verified 09/09/22 16:31 Tetracyclines AdvReac Intermediate Diarrhea Verified 09/09/22 16:31 Home Medications Medication Instructions Recorded Confirmed Type atenolol 25 mg tablet 25 mg PO HS 04/14/19 09/15/22 History multivitamin 1 tab PO QAM 04/14/19 09/15/22 History simvastatin 20 mg tablet (Zocor) 20 mg PO HS 04/14/19 09/15/22 History hydrochlorothiazide 12.5 mg capsule 12.5 mg PO QAM 04/21/22 09/15/22 History albuterol sulfate 90 mcg/actuation 2 puff inhalation BID PRN 08/23/22 09/15/22 History aerosol inhaler Shortness Of Breath Or Wheezing clonazepam 0.5 mg tablet 0.25 mg PO BID PRN Anxiety 08/23/22 09/15/22 History escitalopram oxalate 10 mg tablet 10 mg PO QAM 08/23/22 09/15/22 History promethazine 25 mg tablet 25 mg PO Q6H PRN nausea and 08/23/22 09/15/22 Rx vomiting #14 tabs trazodone 50 mg tablet 50 mg PO HS PRN Insomnia 08/23/22 09/15/22 History cyclobenzaprine 5 mg tablet 5 mg PO TID PRN MUSCLE SPASMS 09/09/22 09/15/22 History pantoprazole 20 mg tablet,delayed 20 mg PO QAM 09/09/22 09/15/22 History release hydroxyzine HCl 25 mg tablet 25 mg PO Q6 PRN Anxiety 09/15/22 09/15/22 History mirtazapine 15 mg tablet 15 mg PO HS 09/15/22 09/15/22 History dicyclomine 10 mg capsule 10 mg PO BID PRN Abdominal Pain 09/16/22 Rx #20 caps losartan 100 mg tablet 100 mg PO DAILY #30 tabs 09/16/22 Rx Patient History Medical History AAA (abdominal aortic aneurysm) Anxiety COPD (chronic obstructive pulmonary disease) Dyslipidemia GERD (gastroesophageal reflux disease) Hypertension Surgical History S/P tubal ligation Family History Other Diabetes Social History Smoking Status: Current every day smoker Tobacco Type: Cigarettes packs per day: 0.5; Cigarettes Per Day: 10; Second Hand Exposure: No; Do You Dip or Chew Tobacco: No; Tobacco Cessation Education Requested by Patient: Yes Hx Alcohol Use: No Hx Substance Use: No Preferred Language: Portuguese Communication Ability: Effective [employer] Oven Mason Required: No Beliefs That Will Affect Care: None Current Living Situation: Alone Other Information That Helps Us Care for You: No Feels Safe at Home: Yes Safety Concerns: Feels Safe At This Time Assistive Devices: None Review of Systems Review of Systems: All systems reviewed & are unremarkable except as noted in HPI & below Physical Exam Constitutional: WD/WN, vitals as above well groomed, cooperative and comfortable Eyes: PERRL, conjunctivae normal, anicteric sclerae ENMT: external ear and nose normal, oropharynx normal Respiratory: normal respiratory effort, lungs clear to auscultation Cardiovascular: RRR, no murmur, no edema Gastrointestinal (Abdomen): normal bowel sounds, soft, nontender, no hepatosplenomegaly Skin: no rashes, warm and dry no jaundice Psychiatric: A+Ox3, euthymic affect Lymphatic: no lymphedema Results & Data Vital Signs (Past 12 Hours) Vital Signs Temp Pulse Pulse Pulse Resp BP BP 09/16/22 08:21 36.7 C 63 20 129/69 09/16/22 07:45 71 09/16/22 00:00 74 09/16/22 03:35 175/82 H 09/16/22 03:33 36.8 C 70 15 206/90 H 09/15/22 23:51 54 L 16 137/78 09/15/22 23:36 36.8 C 58 L 16 204/86 H Pulse Ox O2 Del Method 09/16/22 08:21 95 Room Air 09/16/22 07:45 09/16/22 00:00 09/16/22 03:35 09/16/22 03:33 98 Room Air 09/15/22 23:51 09/15/22 23:36 99 Room Air
[2022-09-16 13:46] LABS: C Reactive Protein 0.67 mg/dl (0-0.5); Immunoglobulin A 102.7 mg/dl (70-400)
--- NOTE | 2022-09-16 16:22 | Discharge Summary ---
Date of Service September 16, 2022 Admission HPI Per Admitting Provider Patient is 71-year-old female with PMH HTN, dyslipidemia, GERD, anxiety, AAA, COPD presented to ER with c/o recurrent falls x 1 month. Patient states for the past month has been falling almost daily. States her arms will start shaking and then her legs feel "wobbly" and then she will fall. Denies any dizziness, shortness of breath, chest pain prior to fall. This can occur shortly after getting up from a seated position or after walking for a prolonged time. Patient states today was standing at counter trying to cook when her legs felt weak and she fell. Patient states today had some pain to buttocks. Prior falls denies any known injury. Patient states for the past 4 months does not have an appetite and has had decreased oral intake. She states she typically has piece of toast for breakfast and some saltines for lunch, sometimes will eat dinner but most the time does not. Has been drinking 1 Ensure a day. Drinks approximately 32 ounces of water a day, 2 cups coffee. She states she has lost approximately 30 pounds over the past 4 months. Has been having mid abdominal pain intermittently. Seen in ER and had CT scan abdomen pelvis on 08/23/2022. Patient states followed up with PCP and has colonoscopy scheduled in the near future. Denies any abdominal pain currently. She states that she had been taking ibuprofen for her belly pain however provider is now concerned that may be causing some abdominal pain as well. Patient is now taking Protonix. Denies fever/chills, diaphoresis, N/V/D/C, AVILA, dizziness, syncope, vision changes, neck pain, CP, SOB, orthopnea, palpitations, cough, sore throat, choking, otalgia, rhinorrhea, paresthesias, extremity edema, rashes, urinary symptoms. Admission Exam Per Admitting Provider General: no distress, thin, appears older than stated age Head: normocephalic, atraumatic Eyes: conjunctiva non-injected, anicteric ENT: normal inspection external ears, nose, mucous membranes moist Neck: supple, trachea midline Lungs: clear, no respiratory distress, no wheezing/rhonchi/rales CV: RRR, + systolic murmur, no pretibial edema Abd: normal BS, soft, non-tender Ext: no cyanosis, no calf tenderness Neuro: A&O x 3, no focal deficits noted, normal affect Skin: warm, dry Principal Diagnosis Hyponatremia Hypertensive urgency Frequent falls Discharge Exam Constitutional: WD/WN, vitals as above, NAD, sitting up in bed, pleasant, conversing easily Respiratory: normal respiratory effort, lungs clear to auscultation, no wheeze, rales, rhonchi. Normal insp/exp effort, no accessory muscle use Cardiovascular: RRR, no murmur, no edema Vessels: no JVD or carotid bruit Chest: normal inspection of chest Abdomen: normal bowel sounds, soft, nontender, no hepatosplenomegaly Musculoskeletal: no cyanosis or clubbing, extremities motor strength 5/5 Skin: no rashes, warm and dry normal turgor Neurologic: PERRL, EOMI, accommodation nl, no face palsy, no dysarthria CN's II- XI intact bilaterally and moves all extremities Psychiatric: A+Ox3, euthymic affect Lymphatic: no cervical or axillary lymphadenopathy : deferred Discharge Data Allergies Allergy/AdvReac Type Severity Reaction Status Date / Time amoxicillin [From Augmentin] AdvReac Intermediate ABD Verified 09/09/22 16:31 PAIN/VOMITING azithromycin [From Zithromax] AdvReac Intermediate Diarrhea Verified 09/09/22 16:31 clavulanic acid AdvReac Intermediate ABD Verified 09/09/22 16:31 [From Augmentin] PAIN/VOMITING doxycycline AdvReac Intermediate Diarrhea Verified 09/09/22 16:31 Macrolide Antibiotics AdvReac Intermediate Diarrhea Verified 09/09/22 16:31 salicylates AdvReac Intermediate INTOLERANCE Verified 09/09/22 16:31 Tetracyclines AdvReac Intermediate Diarrhea Verified 09/09/22 16:31 Consultations 09/15/22 19:32 ED Decision to Admit Stat 09/15/22 23:36 Consult Gastroenterology Routine Hospital Course (1) Hyponatremia: (2) Hypokalemia: (3) Recurrent falls: (4) Hypertension: (5) Dyslipidemia: (6) COPD (chronic obstructive pulmonary disease): (7) GERD (gastroesophageal reflux disease): (8) Anxiety: Plan Patient is 71-year-old female with PMH HTN, dyslipidemia, GERD, anxiety, AAA, COPD presented to ER with c/o recurrent falls x 1 month. She also reported abdominal pain for several months along with weight loss. On presentation, she was found to have hypertensive urgency. She was also found to have hyponatremia with sodium of 129. Chest x-ray was done which showed emphysema without acute process. Patient was admitted to telemetry floor for further assessment. GI was consulted. GI recommended outpatient follow-up with EGD and colonoscopy on October 21. Also recommended dicyclomine 10 mg twice daily as needed for abdominal pain. Patient's hydrochlorothiazide was discontinued given hyponatremia. Her sodium improved to 132. Patient was started on losartan and was recommended to measure her blood pressure daily and keep a record. PT OT evaluation was done; patient was given prescription for rolling walker. Patient was discharged home with instruction to follow-up with her primary care doctor. Total Time Total Time Spent Total Time Spent (In Minutes): 40 Total Time Includes: Examination of the Patient, Discharge Planning, Medication Reconciliation, Communication With Other Providers and Other Discharge Plan Discharge Items Patient Disposition: Home - Self-Care Reason For Visit: HTN CRISIS Discharge Diagnosis: Hypertensive crisis Abdominal pain Hyponatremia Activity: Resume your previous activity Non-emergency contact: Primary Care Provider Call non-emergency contact if: you have any medication questions and your symptoms worsen Follow-up/Referrals: Adriel Whitaker MD [Primary Care Provider] - (Date & Time 09/21/2022 2:00 PM Provider Adriel Whitaker MD [facility] ) Diet: Regular Addtl Attending Provider Instructions: You are admitted to the hospital for recurrent falls. The likely cause for the falls could be low sodium level. Also, physical deconditioning can contribute to it. Hydrochlorothiazide (blood pressure antihypertensive medication) can contribute to low sodium level. We are stopping it. You are prescribed a new antihypertensive medication called losartan. Please measure your blood pressure at home in the morning. Please have both of her feet on the ground and your arm rested while taking the blood pressure. Please keep a record of the blood pressure. If your blood pressure is persistently greater than 160/90; please contact your primary care doctor. For the abdominal pain; please go to your follow-up appointment with the GI doctor for endoscopy scheduled for October. You are prescribed dicyclomine to be taken twice daily as needed for abdominal pain. An appointment will be set up for for you with your primary care doctor for next week. Please obtain repeat BMP to check on your sodium level when you see your primary care doctor. Pending Studies at Discharge: No Stand-Alone Forms: My [facility], Smoking Cessation Medications and DC Order Prescriptions: New losartan 100 mg tablet 100 mg PO DAILY Qty: 30 0RF Continued atenolol 25 mg tablet 25 mg PO HS multivitamin tablet 1 tab PO QAM simvastatin [Zocor] 20 mg tablet 20 mg PO HS trazodone 50 mg tablet 50 mg PO HS PRN (Reason: Insomnia) clonazepam 0.5 mg tablet 0.25 mg PO BID PRN (Reason: Anxiety) albuterol sulfate 90 mcg/actuation HFA aerosol inhaler 2 puff INHALATION BID PRN (Reason: Shortness Of Breath Or Wheezing) escitalopram oxalate 10 mg tablet 10 mg PO QAM promethazine 25 mg tablet 25 mg PO Q6H PRN (Reason: nausea and vomiting) Qty: 14 0RF pantoprazole 20 mg tablet,delayed release (DR/EC) 20 mg PO QAM cyclobenzaprine 5 mg tablet 5 mg PO TID PRN (Reason: MUSCLE SPASMS) mirtazapine 15 mg tablet 15 mg PO HS hydroxyzine HCl 25 mg tablet 25 mg PO Q6 PRN (Reason: Anxiety) Changed dicyclomine 10 mg capsule 10 mg PO BID PRN (Reason: Abdominal Pain) Qty: 20 0RF Discontinued hydrochlorothiazide 12.5 mg capsule 12.5 mg PO QAM Discharge Orders: Discharge Order (Routine); Ordered 09/16/22 Ordered By: Vu Cano Admission Data Admit Date/Time: 09/15/22 21:20 Attending Provider: Vu Cano Admit Provider: Harjit Cassidy Primary Care Provider: Adriel Whitaker Other Providers: Harjit Cassidy ; Josep Salazar ; Jerome Elizondo ; Porsche Goldstein ; Natacha Dey ; Migdalia Bloom ; Zoë Luis ; Arpit Vallejo ; Александр Bob ; Nicola Staton ; José Pinto ; Jono Damon ; Elvi Britton ; Vita Alex ; Deepa Thurman ; Crystal Herndon ; Viviana Devine ; Yordy Gilliland ; Jerel Tam ; Vianey Davila ; Delphine Contreras Jr Other Interventions: Discharge Summary Assessment (RN) Last Done: 09/16/22 15:22
[2022-09-16] MEDS ORDERED: ATENOLOL 25 MG TABLET PO SCH (21:00)
--- NOTE | 2022-09-18 12:06 | Coding Query ---
MALNUTRITION To promote full compliance with coding requirements relating to patient care, physician participation is requested in all cases of certified professional coder uncertainty. Please assist us with the question(s) below: Please place an X within the parenthesis (x). If other, please document: "Malnutrition" is documented in this record. If possible, please check the box that provides a more specific diagnosis: ( ) Mild malnutrition ( X) Moderate malnutrition ( ) Severe malnutrition ( ) Protein malnutrition (kwashiorkor) ( ) Severe protein calorie malnutrition ( ) Protein calorie malnutrition, unspecified ( ) Other (please specify): Was this diagnosis present on admission? Please place an X within the parenthesis (x). ( X) Present on admission ( ) Not present on admission ( ) Unable to be clinically determined Thank you Selena REBOLLEDO
== END 2022-09-16 16:28 | disposition home or self-care (01) | DRG 641 ==
LOC: ED 15:08 → 4W 21:20 → SUATTDRO 21:20 → INTOOBSV 21:20 → 4W 22:49

== ENCOUNTER 2023-12-25 07:51 | Observation (INO) ==
--- OUTSIDE RECORDS SUMMARY | 2023-12-25 07:56 | External Medical Summary ---
Author Name Unknown Address Unknown Organization [id number][facility] [address] [place] [address] Laboratory Report Ordering Provider Test Date Status GEEN FRANCE 11/21/2023 08:18:52 Final Observation Date Value Abnormality Reference (Units ) Status WBC, Total 11/21/2023 08:18:52 10.06 4.00-10.8 0 (K/uL) Final RBC 11/21/2023 08:18:52 4.55 3.85-5.15 (M/uL) Final Hemoglobin 11/21/2023 08:18:52 14.5 12.0-15.3 (g/dL) Final HCT 11/21/2023 08:18:52 43.5 36.0-45.2 (%) Final MCV 11/21/2023 08:18:52 95.6 81.5-97.5 (fL) Final MCH 11/21/2023 08:18:52 31.9 27.0-34.0 (pg) Final MCHC 11/21/2023 08:18:52 33.3 32.0-36.0 (g/dL) Final RDW 11/21/2023 08:18:52 12.2 11.5-15.5 (%) Final Platelets 11/21/2023 08:18:52 205 140-400 (K /uL) Final MPV 11/21/2023 08:18:52 10.0 6.6-11.1 ( fL) Final Performing Location LAB[facility]ATORY [facility] [place] [address] [place] [address]
--- OUTSIDE RECORDS SUMMARY | 2023-12-25 07:56 | External Medical Summary ---
Author Name Unknown Address Unknown Organization [id number]:[facility] - [address] [place] [address] Laboratory Report Ordering Provider Test Date Status PRERNA HICKS 11/21/2023 08:18:52 Final Observation Date Value Abnormality Reference (Units ) Status MYCODE SPECIMEN-SST 11/21/2023 08:18:52 Freezing of extracted DNA, whole blood and/or serum. Final Performing Location [facility] - [address] [place] [address]
--- OUTSIDE RECORDS SUMMARY | 2023-12-25 07:56 | External Medical Summary ---
Author Name Unknown Address Unknown [id number] [address] [place] [address] Laboratory Report Ordering Provider Test Date Status GENE FRANCE 11/21/2023 08:18:52 Final Observation Date Value Abnormality Reference (Units ) Status SYNC LEUKOCYTES IN BLOOD BY AUTOMATED COUNT 11/21/2023 08:18:52 10.06 4.00-10.80 (K/uL) Final Segs 11/21/2023 08:18:52 69.1 40.0-75.0 (%) Final Lymphs % 11/21/2023 08:18:52 22.2 18.0-42.0 (%) Final Monos 11/21/2023 08:18:52 7.2 1.0-11.0 (%) Final Eosinophils 11/21/2023 08:18:52 1.0 0.0-6.0 (%) Final Basos 11/21/2023 08:18:52 0.5 0.0-2.0 (%) Final Absolute Segs 11/21/2023 08:18:52 6.96 1.80-7.70 (K/uL) Final Lymphs, absolute 11/21/2023 08:18:52 2.23 1.00-4.80 (K/ul) Final Monos, Abs 11/21/2023 08:18:52 0.72 0.00-1.10 (K/uL) Final Eos, Abs 11/21/2023 08:18:52 0.10 0.00-0.70 (K/uL) Final Basos, Abs 11/21/2023 08:18:52 0.05 0.00-0.20 (K/uL) Final Performing Location LABORATORY [facility] [place] [address] [place] [address]
--- OUTSIDE RECORDS SUMMARY | 2023-12-25 07:56 | External Medical Summary ---
Author Name Unknown Address Unknown Organization [id number][facility] [place] [facility] [address] [facility] [address] Laboratory Report Ordering Provider Test Date Status SHONDA TORRES 11/21/2023 08:18:52 Final Observation Date Value Abnormality Reference (Units ) Status Triglyceride 11/21/2023 08:18:52 161 <=174 ( mg/dL) Final Triglyceride Reference Range s (mg/dL):
<150 Acceptable
150-174 Borderline high
175-499 High
>=500 Very high Cholesterol 11/21/2023 08:18:52 164 <200 (mg /dL) Final Total Cholesterol Reference Ranges (mg/dL):
<200 Desirable
200-239 Borderline high
>=240 High HDL 11/21/2023 08:18:52 42 Below low normal >49 (mg/dL) Final HDL Cholesterol Reference Ra nges (mg/dL):
>=60 High (Desirable)
<50 Low (Undesirable) For Females
<40 Low (Undesirable) For Males NON-HDL CHOLESTEROL 11/21/2023 08:18:52 122 <=159 (mg/dL) Final Non-HDL Cholesterol Referenc e Range (mg/dL):
<100 Target level for high risk ASCVD patient
<130 Optimal for general population
130-159 Near optimal for general population
160-189 Borderline High
190-219 High
>=220 Very High LDL, (calculated) 11/21/2023 08:18:52 90 <= 129 (mg/dL) Final LDL Cholesterol Reference Ra nges (mg/dL):
<70 Target level for high risk ASCVD patient
<100 Optimal for general population
100-129 Near optimal for general population
130-159 Borderline high
160-189 High
>=190 Very high Performing Location [facility] [place] [address] [facility] [place] [address]
--- OUTSIDE RECORDS SUMMARY | 2023-12-25 07:56 | External Medical Summary | Summary of Care ---
Author Name Unknown Organization [facility] Address [address] [place] [address] Phone [phone] Care Team Providers Care Hair Mixer Name Role Phone Adriel Whitaker MD Primary Care Provider +1- [phone] Reason for Visit * Reason Comments Outpatient Testing Encounter Details Date Type Department Care Team (Late st Contact Info) Description 11/21/2023 8:40 AM EDT Laboratory Laboratory, [facility] [address] [place] [phone] [facility] [address] [facility] [place] [id number] Cancer of ascending colon (HCC); MyCode Research Other*[id number]; LVH (left ventricular hypertrophy); Essential hypertension with goal blood pressure less than 130/80 Allergies Active Allergy Reactions Criticality Noted Date Comments Cisapride 11/05/1998 diarrhea Doxycycline 11/05/1998 diarrhea Macrolides And Ketolides 05/17/2000 zithromax, diarrhea Salicylates 11/05/1998 intol documented as of this encounter (statuses as of 11/21/2023) Medications Medication Sig Dispensed Refills Start Date End Date Status Famotidine 20 MG Oral Tablet (Pepcid) Take 1 Tablet by mouth in the morning and 1 Tablet before bedtime. 180 Tablet 1 09/17/2022 Active Acetaminophen 500 MG Oral Tablet (Tylenol) 2 caps every 8 hours for 3 days, then 1 cap every 4 hours as needed for pain. Do not exceed 3000mg acetaminophen (Tylenol) every 24 hours. 30 Tablet 11/10/2022 Active Albuterol Sulfate HFA 108 (90 Base) MCG/ACT Inhalation Aerosol Solution 01/12/2023 Active Simvastatin 20 MG Oral Tablet (Zocor)Indications :Dyslipidemia, goal LDL below 100 take 1 tablet by mouth at bedtime 90 Tablet 1 02/05/2023 Active Aspirin 81 MG Oral Tablet Chewable Take 1 Tablet by mouth in the morning. 34 Tablet 11 03/02/2023 Active Losartan Potassium 100 MG Oral Tablet (Cozaar) Take 1 Tablet by mouth in the morning. 90 Tablet 3 04/05/2023 Active Pantoprazole Sodium 40 MG Oral Tablet Delayed Release (Protonix)Indicati ons:Abdominal pain, epigastric Take 1 tab twice daily for 4 weeks then take 1 tab daily. 60 Tablet 5 06/02/2023 Active Additional Information Patient not taking.Reported on 08/11/2023 PARoxetine HCl ER 12.5 MG Oral Tablet Extended Release 24 Hour (Paxil CR) Take 1 Tablet by mouth in the morning. 90 Tablet 3 06/30/2023 Active traZODone HCl 100 MG Oral Tablet (Desyrel)Indicatio ns:Insomnia, unspecified type Take 1 Tablet by mouth at bedtime. 90 Tablet 3 07/18/2023 Active amLODIPine Besylate 5 MG Oral Tablet (Norvasc)Indicatio ns:Hypertension goal BP (blood pressure) < 140/90 Take 1 Tablet by mouth in the morning. 90 Tablet 3 08/15/2023 Active Carvedilol 3.125 MG Oral Tablet (Coreg) Take 1 Tablet by mouth in the morning and 1 Tablet before bedtime. 204 Tablet 3 08/31/2023 Active Albuterol Sulfate HFA 108 (90 Base) MCG/ACT Inhalation Aerosol SolutionIndication s:COPD, severity to be determined (HCC) Inhale 2 Puffs by mouth every 6 hours as needed for Shortness of Breath. 18 g 5 10/11/2023 Active ALPRAZolam 0.25 MG Oral Tablet (xaNAX)Indications :Agoraphobia with panic disorder,Severe anxiety with panic,Controlled substance agreement signed,Anxiety Take 1 Tablet by mouth 3 times a day as needed for Anxiety. 90 Tablet 11/02/2023 Active documented as of this encounter (statuses as of 11/21/2023) Active Problems Problem Noted Date Diagnosed Date Protein-calorie malnutrition 05/30/2023 Aneurysm of descending thoracic aorta without ru pture 05/30/2023 Moderate episode of recurrent major depressive d isorder 05/30/2023 Severe anxiety with panic 02/04/2023 Cancer of ascending colon 11/10/2022 Adenocarcinoma of colon 11/08/2022 AAA (abdominal aortic aneurysm) 08/24/2022 Overview: 4.0 cm AAA noted on Screening US 08/17/22 H/O dysplastic nevus 08/17/2022 Overview: Focal atypical nevus (L upper back 08/29), mildly atypical nevus (R upper back 08/29) Loss of weight 08/16/2022 Anterior cerebral artery aneurysm 08/16/2022 COPD, severity to be determined 04/05/2022 Agoraphobia with panic disorder 02/08/2019 Essential hypertension with goal blood pressure less than 140/90 09/20/2017 Abnormal electrocardiogram 08/16/2017 Tobacco use disorder 08/16/2017 Dyslipidemia, goal LDL below 100 Gastro-esophageal reflux documented as of this encounter (statuses as of 11/21/2023) Resolved Problems Problem Noted Date Diagnosed Date Resolved Date Post-op pain 11/11/2022 04/25/2023 Encounter for deep vein thro mbosis (DVT) prophylaxis 11/11/2022 04/25/2023 Encounter for deep vein thro mbosis (DVT) prophylaxis 11/10/2022 04/25/2023 Pulsatile tinnitus of right ear 09/20/2017 02/08/2019 Elevated blood pressure, situational 08/16/2017 09/20/2017 Breast cancer screening 12/09/201402/06 Anxiety 12/09/2014 02/08/2019 Overweight (BMI 25.0-29.9) 10/08/2013 0 08/16/2017 Overview: BMI= 26.47 10/08/13 Screen for colon cancer 10/08/201302/06 Other screening mammogram 10/08/2013 Acute sinusitis 07/21/2010 12/09/2014 HTN, goal below 130/80 09/05/200907/21 TICK BITE, LEFT CHEST 09/23/20082014 Toxic effect of venom 09/23/20082014 Overview: ICD-10 update of inactive term Headache 09/23/2008 12/09/2014 Overview: ICD-10 update of inactive term Obsessive-compulsive disorder 07/24/2008 12/09/2014 Acute bronchitis, antibiotics not indicated 11/15/2006 07/04/2008 Overview: Resolved per Benign Acute Dxs Protocol #3 Cough 11/15/2006 12/09/2014 CHRONIC TOBACCO MUCOSITIS 11/15/2006 Dysfunction of eustachian tube 11/15/2006 12/09/2014 Tobacco use disorder 11/15/2006 015 Agoraphobia 05/11/2005 02/08/2019 Overview: dx'd via psychologist 04/12 ADVANCE DIRECTIVE INFORMATION 03/11/2005 12/09/2014 Overview: No, Advance Directive brochure given to patient. Other specified pruritic conditions 04/16/2004 02/06/2018 Overview: seen by Dr. Martinez 2004 - treated with Protopic GENERALIZED ANXIETY DIS 02/25/2003 08/0 07/2014 HTN, goal below 140/90 05/31/200209/05 Dyslipidemia, goal to be determined 08/25/2001 09/05/2009 Reflux esophagitis 5 PREMENSTRUAL TENSION 015 HTN, goal below 140/90 08/16 documented as of this encounter (statuses as of 11/21/2023) Immunizations Name Administration Dates Next Due Pneumococcal Conjugate Vacc, 13 Valent (Prevnar) 03/08/2018 Pneumococcal Polysaccharide PPV23 (Pneumovax) 10/13/2006 Seasonal Influenza, PF, 6 M & above, IM , (FluLaval or Fluzone) 04/05/2023,02/12/2021,01/17/2020,02/08,02/06/2018 Seasonal Influenza, Quadriva lent Hd (Fluzone Hd) 01/28/2022 Seasonal Influenza, Quadriva lent, No Preserve, IM 02/17/2016,02/22/2015 Seasonal Influenza, Split, I IV3, With Preserve, Inj 01/31/2014,03/08/2011,02/07/2010,03/11 TDAP (age 10 and older)(Boostrix) 10/18/2013 documented as of this encounter Social History Tobacco Use Types Packs/Day Years Used Date Smoking Tobacco: Every Day Cigarettes 1 37 Smokeless Tobacco: Never Comments:began at age 27 States smoking 5 cigs/day as of 08/31/23 Alcohol Use Standard Drinks/Week Comments No 0 (1 standard drink = 0.6 oz pur e alcohol) none PHQ-2 Answer Date Recorded PHQ-2 Score 0 03/31/2020 Utilities Answer Date Recorded Do you have trouble paying y our heating, water, or electric bill? (Adult - for ages 18 years and over) Not on file 10/25/2023 Is your family able to pay t he heat, water, or electric bill? (Household - for ages 0-17 years) Not on file 10/25/2023 Does your family have access to good internet? (Household - for ages 0-17 years) Not on file 10/25/2023 Social Connections Answer Date Recorded How often do you feel lonely or isolated from those around you? (Adult - for ages 18 years and over) Not on file 10/25/2023 Sex and Gender Information Value Date Recorded Sex Assigned at Female 06/30/2022 11:12 AM EST Gender Identity Female 06/30/2022 11:12 AM EST Sexual Orientation Straight 06/30/2022 11 :12 AM EST Job Start Date Occupation Industry Not on file Not on file Not on file documented as of this encounter Functional Status Functional Status Response Date of Assess ment Are you deaf or do you have serious difficulty h earing? No 11/08/2022 Are you blind or do you have serious difficulty seeing, even when wearing glasses? No 11/08/2022 Do you have serious difficul ty walking or climbing stairs? (5 years old or older) No 11/08/2022 Do you have difficulty dress ing or bathing? (5 years old or older) No 11/08/2022 Because of a physical, menta l, or emotional condition, do you have difficulty doing errands alone such as visiting a doctor s office or shopping? (15 years old or older) No 11/09/19 Cognitive Status Response Date of Assessm ent Because of a physical, menta l, or emotional condition, do you have serious difficulty concentrating, remembering, or making decisions? (5 years old or older) No 11/08/2022 documented as of this encounter Plan of Treatment Upcoming Encounters Date Type Department Care Team (Late st Contact Info) Description 11/23/2023 10:30 AM EDT Office Visit Hematology/Oncology [facility] [address] [facility] [place] [phone] Yosvany Moe MD [address] [facility] [place] [address] 03/07/2024 8:30 AM EDT Office Visit Cardiology, [facility] [address] [place] [address] Martin Ko, [address] [place] [address] 05/03/2024 9:00 AM EST Office Visit [facility] [address] [place] [facility] [place] [phone] Adriel Whitaker MD [address], [place] [phone] Pending Results Name Type Priority Associated Diagnoses Date /Time COMPREHENSIVE METABOLIC PANEL Lab Routine Cancer of ascending colon (HCC) 11/21/2023 8:18 AM EDT CEA Lab Routine Cancer of ascending colon (HCC) 11/21/2023 8:18 AM EDT MYCODE SUBSEQUENT ADULT Lab Routine MyCode Research Other*[id number] 11/21/2023 8:18 AM EDT LIPID PANEL WITH DIRECT LDL IF TG IS HIGH Lab Routine LVH (left ventricular hypertrophy) Essential hypertension with goal blood pressure less than 130/80 11/21/2023 8:18 AM EDT MYCODE SST1 Lab Routine MyCode Research Other*[id number] 11/21/2023 8:18 AM EDT MYCODE SST2 Lab Routine MyCode Research Other*[id number] 11/21/2023 8:18 AM EDT Scheduled Procedures Name Priority Associated Diagnoses Date/Ti me COLONOSCOPY FLEXIBLE PROXIMAL DIAGNOSTIC Abdominal pain, generalized Abdominal pain, epigastric Loss of weight ESOPHAGOGASTRODUODENOSCOPY ( EGD), FLEXIBLE, TRANSORAL, DIAGNOSTIC Recall Abdominal pain, generalized Abdominal pain, epigastric Loss of weight COLONOSCOPY FLEXIBLE PROXIMAL DIAGNOSTIC Recall Abdominal pain, generalized Abdominal pain, epigastric Loss of weight Health Maintenance Due Date Last Done Comments DISCUSS TOBACCO CESSATION (REFER TO SMARTSET #3293) 1950 Alpha-1 Antitrypsin 1970 Hepatitis C Screening 1970 Cologuard 1997 Fecal Occult Blood Test 1997 Sigmoidoscopy 1997 Lung Cancer Screening 2002 Zoster Vaccines (1 of 2) 2002 DXA Scan 12/25/2005 12/25/1998 Mammogram 02/11/2017 02/12/2016, 08/29/2012 Pneumococcal Vaccine: 65+ Years (3 of 3 - PPSV23 or PCV20) 03/08/2019 03/08/2018, 10/13/2006, 03/04/1994 Depression Monitoring 03/31/2021 03/31/2020 COVID-19 Vaccine (3 - 2022- season) 2023 07/22/2020, 07/01/2020 DTaP,Tdap,and Td Vaccines (2 - Td or Tdap) 10/19/2023 10/18/2013, 05/09/1990, 05/09/1990 *CXR OR CT FOR COPD EVER 11/20/2023 Influenza Vaccine (FLU shot) (#1) 2024 04/05/2023, 01/28/2022, 02/12/2021, Additional history exists GFR 07/19/2024 07/20/2023, 03/10, 03/08/2023, Additional history exists O2 ASSESSMENT COMPLETED IN PAST YEAR FOR COPD 10/10/2024 10/11/2023 Albumin/Creatinine Ratio 11/04/2025 11/04/2022, 01/0 10/2011 Lipid Panel 11/05/2027 11/04/2022, 09/06, 03/17/2020, Additional history exists Colonoscopy 09/24/2032 09/24/2022, 09/24/2022 Colorectal Cancer Screening 09/24/2032 HPV (Gardasil) Vaccine Aged Out No lo nger eligible based on patient's age to complete this topic Hepatitis B Vaccine Aged Out No longe r eligible based on patient's age to complete this topic MENINGOCOCCAL (MENACTRA/MENVEO) Aged Out No longer eligible based on patient's age to complete this topic documented as of this encounter Medical Devices Not on filedocumented as of this encounter Procedures Procedure Name Priority Date/Time Associated Diagnosis Comments DIFFERENTIAL, AUTOMATED Routine 11/21/2023 8:18 AM EDT Cancer of ascending colon (HCC) CBC Routine 11/21/2023 8:18 AM EDT Cancer of ascending colon (HCC) CBC Routine 11/21/2023 8:18 AM EDT Cancer of ascending colon (HCC) documented in this encounter Results * DIFFERENTIAL, AUTOMATED (11/21/2023 8:18 AM EDT) WBC 10.06 4.00 - 10.80 K/uL 11/21/2023 8:36 AM EDT [facility] Neutrophils % 69.1 40.0 - 75.0 % 11/21/2023 8:36 AM EDT [facility] Lymphocytes % 22.2 18.0 - 42.0 % 11/21/2023 8:36 AM EDT [facility] Monocytes % 7.2 1.0 - 11.0 % 11/21/2023 8:36 AM EDT [facility] Eosinophils % 1.0 0.0 - 6.0 % 11/21/2023 8:36 AM EDT [facility] Basophils % 0.5 0.0 - 2.0 % 11/21/2023 8:36 AM EDT [facility] Absolute Neutrophils 6.96 1.80 - 7.70 K/uL 11/21/2023 8:36 AM EDT [facility] Absolute Lymphocytes 2.23 1.00 - 4.80 K/ul 11/21/2023 8:36 AM EDT [facility] Absolute Monocytes 0.72 0.00 - 1.10 K/uL 11/21/2023 8:36 AM EDT [facility] Absolute Eosinophils 0.10 0.00 - 0.70 K/uL 11/21/2023 8:36 AM EDT [facility] Absolute Basophils 0.05 0.00 - 0.20 K/uL 11/21/2023 8:36 AM EDT [facility] Blood Venous blood specimen / Unknown Venipuncture / Unknown 11/21/2023 8:18 AM EDT 11/21/2023 8:18 AM EDT Yosvany Moe MD LAB BLOOD [facility] [place] [id number] * CBC (11/21/2023 8:18 AM EDT) WBC 10.06 4.00 - 10.80 K/uL 11/21/2023 8:36 AM EDT [facility] RBC 4.55 3.85 - 5.15 M/uL 11/21/2023 8:36 AM EDT [facility] HGB 14.5 12.0 - 15.3 g/dL 11/21/2023 8:36 AM EDT [facility] HCT 43.5 36.0 - 45.2 % 11/21/2023 8:36 AM EDT [facility] MCV 95.6 81.5 - 97.5 fL 11/21/2023 8:36 AM EDT [facility] MCH 31.9 27.0 - 34.0 pg 11/21/2023 8:36 AM EDT [facility] MCHC 33.3 32.0 - 36.0 g/dL 11/21/2023 8:36 AM EDT [facility] RDW 12.2 11.5 - 15.5 % 11/21/2023 8:36 AM EDT [facility] PLT 205 140 - 400 K/uL 11/21/2023 8:36 AM EDT [facility] MPV 10.0 6.6 - 11.1 fL 11/21/2023 8:36 AM EDT [facility] Blood Venous blood specimen / Unknown Venipuncture / Unknown 11/21/2023 8:18 AM EDT 11/21/2023 8:18 AM EDT Yosvany Moe MD LAB BLOOD [facility] [address] [facility] [address] documented in this encounter Visit Diagnoses Diagnosis Cancer of ascending colon (HCC) Malignant neoplasm of ascending colon MyCode Research Other*[id number] LVH (left ventricular hypertrophy) Cardiomegaly Essential hypertension with goal blood pressure less than 130/80 documented in this encounter Advance Directives * Full Code (Latest Code Status on File) Date Activated Date Inactivated Comments 11/08/2022 11:27 AM 11/11/2022 4:51 PM Question Answer Comments Discussion of Advance Directives occurred with: Patient Care Teams Hair Mixer Relationship Specialty Start Date End Date [facility]riel Whitaker [facility] [address] [facility] [address] PCP - General Family Medicine 10/20/17 documented as of this encounter
--- OUTSIDE RECORDS SUMMARY | 2023-12-25 07:56 | External Medical Summary | Summary of Care ---
Author Name Unknown Organization [facility] Address [address] [place] [address] Phone [phone] Care Team Providers Care [employer] Lab Technician Name Role Phone Adriel Whitaker MD Primary Care Provider [phone]- [phone] Reason for Visit * Reason Onset Date Comments Medication Refill 11/05/2023 Encounter Details Date Type Department Care Team (Late st Contact Info) Description 11/05/2023 Refill [facility] [address] [place] [address] Adriel Whitaker MD [address] [place] [address] Agoraphobia with panic disorder; Severe anxiety with panic; Controlled substance agreement signed; Anxiety Allergies Active Allergy Reactions Criticality Noted Date Comments Cisapride 11/05/1998 diarrhea Doxycycline 11/05/1998 diarrhea Macrolides And Ketolides 05/17/2000 zithromax, diarrhea Salicylates 11/05/1998 intol documented as of this encounter (statuses as of 11/06/2023) Medications Medication Sig Dispensed Refills Start Date [...] as of this encounter (statuses as of 11/06/2023) Active Problems Problem Noted Date Diagnosed Date [...] as of this encounter (statuses as of 11/06/2023) Resolved Problems Problem Noted Date Diagnosed Date [...] as of this encounter (statuses as of 11/06/2023) Immunizations Name Administration Dates Next Due Pneumococcal [...] No 11/08/2022 documented as of this encounter Miscellaneous Notes * Telephone Encounter - Jose Munson [facility] - 11/06/2023 7:53 PM EDTRefused Prescriptions: Disp Refills ALPRAZolam 0.25 MG Oral Tablet (xaNAX) 90 Tab*0 Sig: Take 1 Tablet by mouth 3 times a day as needed for Anxiety.Refused By: JOSE MUNSON for Refusal: Too soon documented in this encounter Plan of Treatment Upcoming Encounters Date Type Department Care Team (Late st Contact Info) Description 11/14/2023 8:00 AM EDT [facility] [address] [facility] [place] [address] 11/14/2023 9:00 AM EDT Laboratory Laboratory, [facility] [address] [facility] [place] [phone] [facility] [address] [place] [address] 11/14/2023 9:15 AM EDT Imaging Radiology [facility] [address] [facility] [place] [address] 11/23/2023 10:30 AM EDT Office Visit Hematology/Oncology [facility] [address] [place] [phone] Yosvany Moe MD [address] [place] [address] 03/07/2024 8:30 AM EDT Office Visit Cardiology, [facility] [address] [facility] [place] [address] Martin Ko DO [address] [place] [address] 05/03/2024 9:00 AM EST Office Visit [facility] [address] [place] [phone] Adriel Whitaker MD [address] [place] [address] Scheduled Procedures Name Priority Associated Diagnoses Date/Ti [...] Comments DISCUSS TOBACCO CESSATION (REFER TO SMARTSET #0375) 1950 Alpha-1 Antitrypsin 1970 Hepatitis C Screening 1970 Cologuard 1997 Fecal Occult Blood Test 1997 Sigmoidoscopy 1997 Lung Cancer Screening 2002 Zoster Vaccines (1 of 2) 2002 DXA Scan 12/25/2005 12/25/1998 Mammogram 02/11/2017 02/12/2016, 08/29/2012 Pneumococcal Vaccine: 65+ Years (3 of 3 - PPSV23 or PCV20) 03/08/2019 03/08/2018, 10/13/2006, 03/04/1994 Depression Monitoring 03/31/2021 03/31/2020 COVID-19 Vaccine (3 - 2022-24 season) 2023 07/22/2020, 07/01/2020 DTaP,Tdap,and Td Vaccines (2 - Td or Tdap) 10/19/2023 10/18/2013, 05/09/1990, 05/09/1990 O2 ASSESSMENT COMPLETED IN PAST YEAR FOR COPD 11/09/2023 11/08/2022 GFR 07/19/2024 07/20/2023, 03/10, 03/08/2023, Additional history exists Albumin/Creatinine Ratio 11/04/2025 11/04/2022, 10/2011 Lipid Panel 11/05/2027 11/04/2022, 09/06, 03/17/2020, Additional history exists Colonoscopy 09/24/2032 09/24/2022, 09/24/2022 Colorectal Cancer Screening 09/24/2032 Influenza Vaccine (FLU shot) Completed , 01/28/2022, 02/12/2021, Additional history exists GARDASIL-HPV IMMUNIZATION SERIES Aged Out No longer eligible based on patient's age to complete this topic Hepatitis B Aged Out No longer eligi ble based on patient's age to complete this topic MENINGOCOCCAL (MENACTRA/MENVEO) Aged Out No longer eligible based on patient's age to complete this topic documented as of this encounter Medical Devices Not on filedocumented as of this encounter Visit Diagnoses Diagnosis Agoraphobia with panic disorder Severe anxiety with panic Controlled substance agreement signed Encounter for long-term (current) use of other medications Anxiety Anxiety state, unspecified documented in this encounter Advance Directives * Full Code (Latest Code Status on File) Date Activated Date Inactivated Comments 11/08/2022 11:27 AM 11/11/2022 4:51 PM Question Answer Comments Discussion of Advance Directives occurred with: Patient Care Teams Semiconductor Lab Technician Relationship Specialty Start Date End Date Adriel Whitaker MD [address] [place] [address] PCP - General Family Medicine 10/20/17 documented as of this encounter
--- OUTSIDE RECORDS SUMMARY | 2023-12-25 07:56 | External Medical Summary ---
Author Name Unknown Address Unknown Organization [id number]:[facility] [address] [place] [address] Laboratory Report Ordering Provider Test Date Status PRERNA HICKS 11/21/2023 08:18:52 Final Observation Date Value Abnormality Reference (Units ) Status MYCODE SPECIMEN-SST 11/21/2023 08:18:52 Freezing of extracted DNA, whole blood and/or serum. Final Performing Location [facility] - [address] [place] [address]
--- OUTSIDE RECORDS SUMMARY | 2023-12-25 07:56 | External Medical Summary ---
Author Name Unknown Address Unknown Organization [id number]:[facility] - [address] [place] [address] Laboratory Report Ordering Provider Test Date Status GENE FR[place] 11/21/2023 08:18:52 Final Observation Date Value Abnormality Reference (Units ) Status CEA 11/21/2023 08:18:52 6.5 Above high normal <= 5.2 (ng/mL) Final Performing Location [facility]ORY [facility] - [address] [place] [address]
--- OUTSIDE RECORDS SUMMARY | 2023-12-25 07:56 | External Medical Summary | Summary of Care ---
Author Name Unknown Organization [facility] Address [address] [place] [address] Phone [phone] Care Team Providers Care Principal Architect Name Role Phone Adriel Whitaker MD Primary Care Provider [phone]- [phone] Reason for Visit * Reason Comments Follow Up Encounter Details Date Type Department Care Team (Late st Contact Info) Description 11/23/2023 10:30 AM EDT Office Visit Hematology/Oncology [facility] [address] [facility] [place] [phone] Yosvany Moe MD [address] [place] [address] Cancer of ascending colon (HCC)* Allergies Active Allergy Reactions Criticality Noted Date Comments Cisapride 11/05/1998 diarrhea Doxycycline 11/05/1998 diarrhea Macrolides And Ketolides 05/17/2000 zithromax, diarrhea Salicylates 11/05/1998 intol documented as of this encounter (statuses as of 11/23/2023) Medications Medication Sig Dispensed Refills Start Date [...] as of this encounter (statuses as of 11/23/2023) Active Problems Problem Noted Date Diagnosed Date [...] as of this encounter (statuses as of 11/23/2023) Resolved Problems Problem Noted Date Diagnosed Date Resolved Date Post-op pain 11/11/2022 04/25/2023 Encounter for deep vein thro mbosis (DVT) prophylaxis 11/11/2022 04/25/2023 Encounter for deep vein thro mbosis (DVT) prophylaxis 11/10/2022 04/25/2023 Pulsatile tinnitus of right ear 09/20/2017 02/08/2019 Elevated blood pressure, situational 08/16/2017 09/20/2017 Breast cancer screening 12/09/201402/06 Anxiety 12/09/2014 02/08/2019 Overweight (BMI 25.0-29.9) 10/08/2013 0 08/16/2017 Overview: BMI= 26.47 6/2/14 Screen for colon cancer 10/08/201302/06 Other screening [...] as of this encounter (statuses as of 11/23/2023) Immunizations Name Administration Dates Next Due Pneumococcal [...] Day Cigarettes 1 37 Smokeless Tobacco: Never Tobacco Cessation:Ready to Q uit: Not Asked; Counseling Given: Not Answered Comments:began at age 27 States smoking 5 [...] on file documented as of this encounter Last Filed Vital Signs Vital Sign Reading Time Taken Comments Blood Pressure 122/77 11/23/2023 10:34 AM EDT Pulse 67 11/23/2023 10:34 AM EDT Temperature 36.8 C (98.3 F) 11/23/2023 10:34 AM E DT Respiratory Rate - - Oxygen Saturation 98% 11/23/2023 10:34 AM EDT Inhaled Oxygen Concentration - - Weight 45.2 kg (99 lb 11.2 oz) 11/23/2023 10:34 AM EDT Height - - Body Mass Index 16.09 10/11/2023 2:35 PM EDT documented in this encounter Functional Status Functional Status Response [...] No 11/08/2022 documented as of this encounter Progress Notes * Yosvany Moe MD - 11/23/2023 11:17 AM EDT Outpatient Consult Note Data Source: Patient, [facility] record. Data Source: Patient, [facility] record. 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 Patient has pT3 pN0 stage II A disease. Current Treatment: Observation Previous Treatment: Laparoscopic right hemicolectomy done on 11/08/2022 Oncologic History : 73-year-old female with past medical history significant for hypertension, anxiety disorder and dyslipidemia presented with complaint of increasing abdominal pain and significant weight loss since 06/2022. 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 Extensive atherosclerotic changes in the neck with chronic occlusion of the left internal carotid artery. She had upper endoscopy and colonoscopy done on 09/24/2022 which revealed infiltrative and ulcerated nonobstructing large mass in the ascending colon, the mass was circumferential and there was severe diverticulosis in the entire examined colon. Biopsy from the masses consistent with invasive adenocarcinoma, moderately differentiated, MSI intact and K-walker and Nras were mutated. She had a CT scan of chest abdomen pelvis on 10/01/2022 which showed no acute pathology in the chest, abdomen pelvis She recently quit smoking. She used to smoke half pack per day for about 40 years. She is also vaping started recently since the diagnosis of cancer. Family history is negative for any hematologic oncology problem. Final Diagnosis A. Duodenum, biopsy: Duodenal mucosa with finding consistent with a mild nonspecific chronic duodenitis with focal minimal activity. No villous blunting or intraepithelial lymphocytosis identified. B. Esophagus, mid, biopsy: Squamous mucosa with no significant histopathologic changes. Note for part B: The clinical suspicion for Connie esophagitis noted. A PASF stain reveals no definite fungal element within epithelium based on this biopsy material. Clinical and endoscopic correlation. C. Colon, Ascending, tumor, polypectomy: Invasive adenocarcinoma, moderately differentiated. Note for part C: Precise depth of invasion can not be determined based on this superficial biopsy. Immunostain for mismatch repair proteins reveals intact nuclear expression in tumor cells. Immunohistochemical Detection of Mismatch Repair Proteins Results: Normal (intact) expression of MLH1, MSH-2, MSH-6 and PMS2 in both adenocarcinoma cells andnormal tissue. Table1. Summary of Immunostaining Results Marker/Tissue Adenocarcinoma Normal Tissue MLH-1 Positive Positive PMS-2 Positive Positive MSH-2 Positive Positive MSH-6 Positive Positive BRAF Result No Mutation Detected in the BRAF Codon 600. NRAS Result NRAS gene mutation Q61R detected. Abnormal KRAS Result KRAS gene mutation A146P/T/V detected On 11/08/2022 patient underwent laparoscopic right hemicolectomy. Pathology is consistent with the right colon intermediate grade adenocarcinoma with negative lymph nodes. Patient has pT3 pN0 disease. Twenty-four lymph nodes were negative for metastatic disease. SPECIMEN Procedure Right hemicolectomy TUMOR Tumor Site Ascending colon Histologic Type Adenocarcinoma Histologic Grade G2, moderately differentiated Tumor Size Greatest dimension (Centimeters): 4.0 cm Additional Dimension (Centimeters) 3.5 cm Tumor Extent Invades through muscularis propria into the pericolonic or perirectal tissue Macroscopic Tumor Perforation Not identified Lymphovascular Invasion Not identified Perineural Invasion Not identified Treatment Effect No known presurgical therapy MARGINS Margin Status for Invasive Carcinoma All margins negative for invasive carcinoma Closest Margin(s) to Invasive Carcinoma Proximal Distance from Invasive Carcinoma to Closest Margin 4.5 cm Margin Status for Non-Invasive Tumor Not applicable REGIONAL LYMPH NODES Regional Lymph Node Status All regional lymph nodes negative for tumor Number of Lymph Nodes Examined 24 pT Category pT3 pN Category pN0 Interval History: Overall clinically she is stable. She continues to complain generalized weakness and episode of abdominal pain. Denies any headache, dizziness, blurred vision, chest pain, palpitation, nausea, vomiting, fever, night sweats, bleeding, bruising, hematuria, hematochezia. LABS/IMAGING: Results for orders placed or performed in visit on 11/21/23 COMPREHENSIVE METABOLIC PANEL Result Value Ref Range BUN 19 6 - 20 mg/dL Creatinine 0.9 0.5 - 1.0 mg/dL Estimated Glomerular Filtration Rate 71 >=60 mL/min Sodium 140 135 - 146 mmol/L Potassium 3.7 3.5 - 5.1 mmol/L Chloride 98 98 - 107 mmol/L CO2 27 22 - 32 mmol/L Anion Gap 15 7 - 15 mmol/L Glucose 98 70 - 120 mg/dL Albumin 4.6 3.8 - 5.0 g/dL AST 24 10 - 35 U/L Alkaline Phosphatase 72 35 - 130 U/L Bilirubin, Total 0.5 <=1.2 mg/dL Calcium 9.7 8.4 - 10.2 mg/dL Protein 7.4 6.0 - 8.3 g/dL ALT 23 10 - 35 U/L CEA Result Value Ref Range CEA 6.5 (H) <=5.2 ng/mL LIPID PANEL WITH DIRECT LDL IF TG IS HIGH Result Value Ref Range Triglycerides 161 <=174 mg/dL Cholesterol 164 <200 mg/dL HDL Cholesterol 42 (L) >49 mg/dL Non-HDL Cholesterol 122 <=159 mg/dL LDL Cholesterol 90 <=129 mg/dL CBC Result Value Ref Range WBC 10.06 4.00 - 10.80 K/uL RBC 4.55 3.85 - 5.15 M/uL HGB 14.5 12.0 - 15.3 g/dL HCT 43.5 36.0 - 45.2 % MCV 95.6 81.5 - 97.5 fL MCH 31.9 27.0 - 34.0 pg MCHC 33.3 32.0 - 36.0 g/dL RDW 12.2 11.5 - 15.5 % PLT 205 140 - 400 K/uL MPV 10.0 6.6 - 11.1 fL DIFFERENTIAL, AUTOMATED Result Value Ref Range WBC 10.06 4.00 - 10.80 K/uL Neutrophils % 69.1 40.0 - 75.0 % Lymphocytes % 22.2 18.0 - 42.0 % Monocytes % 7.2 1.0 - 11.0 % Eosinophils % 1.0 0.0 - 6.0 % Basophils % 0.5 0.0 - 2.0 % Absolute Neutrophils 6.96 1.80 - 7.70 K/uL Absolute Lymphocytes 2.23 1.00 - 4.80 K/ul Absolute Monocytes 0.72 0.00 - 1.10 K/uL Absolute Eosinophils 0.10 0.00 - 0.70 K/uL Absolute Basophils 0.05 0.00 - 0.20 K/uL MYCODE SST1 Result Value Ref Range MyCode Specimen Freezing of extracted DNA, whole blood and/or serum. MYCODE SST2 Result Value Ref Range MyCode Specimen Freezing of extracted DNA, whole blood and/or serum. The result of all the blood tests including CBC and CMP are within normal range. CEA level is stable and it was 6.5. CT scan of the chest was done on 11/21/2023 which revealed resolution of the previously noted left lower lobe nodule with no new or enlarging suspicious lung nodule. She had a CT scan of the abdomen pelvis done on 07/25/2023 which was negative for any metastasis orrecurrent disease. REVIEW OF SYSTEMS: General: No Fever, chills, night sweats, or weight loss. HEENT: No change in visual acuity, blurred or double vision. No epistaxis, facial pain, nasal discharge or change in hearing. Denies dysphagia, no muscosal ulceration, or sores noted. Cardiovascular: No chest pain, LEIJA, or palpitations Respiratory: No shortness of breath, cough, hemoptysis, or pleuritic chest pain Gastrointestinal: episodes of abdominal discomfort, No nausea, vomiting, diarrhea, rectal pain or bleeding Genitourinary: Denies Hematuria or dysuria Musculoskeletal: No bone pain Psychiatric: No vegetative signs of depression Endocrine: No symptoms of hypothyroidism or hyperglycemia Hematologic: No bleeding or lymph nodes noted As mentioned above, all of the systems were reviewed in full and are unremarkable. Past Medical History: Diagnosis Date Dyslipidemia, goal LDL below 100 Gastro-esophageal reflux Generalized anxiety disorder HTN, goal below 140/90 Current Outpatient Medications Medication Sig Dispense Refill Famotidine 20 MG Oral Tablet (Pepcid) Take 1 Tablet by mouth in the morning and 1 Tablet before bedtime. 180 Tablet 1 Acetaminophen 500 MG Oral Tablet (Tylenol) 2 caps every 8 hours for 3 days, then 1 cap every 4 hours as needed for pain. Do not exceed 3000mg acetaminophen (Tylenol) every 24 hours. 30 Tablet 0 Albuterol Sulfate HFA 108 (90 Base) MCG/ACT Inhalation Aerosol Solution (Patient not taking: Reported on 08/31/2023) Simvastatin 20 MG Oral Tablet (Zocor) take 1 tablet by mouth at bedtime 90 Tablet 1 Aspirin 81 MG Oral Tablet Chewable Take 1 Tablet by mouth in the morning. 34 Tablet 11 Losartan Potassium 100 MG Oral Tablet (Cozaar) Take 1 Tablet by mouth in the morning. 90 Tablet 3 Pantoprazole Sodium 40 MG Oral Tablet Delayed Release (Protonix) Take 1 tab twice daily for 4 weeksthen take 1 tab daily. (Patient not taking: Reported on 08/11/2023) 60 Tablet 5 PARoxetine HCl ER 12.5 MG Oral Tablet Extended Release 24 Hour (Paxil CR) Take 1 Tablet by mouth inthe morning. 90 Tablet 3 traZODone HCl 100 MG Oral Tablet (Desyrel) Take 1 Tablet by mouth at bedtime. 90 Tablet 3 amLODIPine Besylate 5 MG Oral Tablet (Norvasc) Take 1 Tablet by mouth in the morning. 90 Tablet 3 Carvedilol 3.125 MG Oral Tablet (Coreg) Take 1 Tablet by mouth in the morning and 1 Tablet before bedtime. 204 Tablet 3 Albuterol Sulfate HFA 108 (90 Base) MCG/ACT Inhalation Aerosol Solution Inhale 2 Puffs by mouth every 6 hours as needed for Shortness of Breath. 18 g 5 ALPRAZolam 0.25 MG Oral Tablet (xaNAX) Take 1 Tablet by mouth 3 times a day as needed for Anxiety. 90 Tablet 0 No current facility-administered medications for this visit. Social History Tobacco Use Smoking status: Every Day Current packs/day: 1.00 Average packs/day: 1 pack/day for 37.0 years (37.0 ttl pk-yrs) Types: Cigarettes Smokeless tobacco: Never Tobacco comments: began at age 27 States smoking 5 cigs/day as of 08/31/23 Vaping Use Vaping status: Never Used Substance Use Topics Alcohol use: No Comment: none Drug use: No Review of patient's allergies indicates: Allergen Reactions Cisapride diarrhea Doxycycline diarrhea Macrolides And Ketolides zithromax, diarrhea Salicylates intol PHYSICAL EXAMINATION: General Appearance: Weak appearing patient in no acute distress BP 122/77 (BP Site: Left Arm, BP Position: Sitting, BP Cuff Size: Regular) | Pulse 67 | Temp 36.8 C (98.3 F) (Tympanic) | Wt 45.2 kg (99 lb 11.2 oz) | SpO2 98% | BMI 16.09 kg/m | BSA 1.45 m Vitals reviewed. HEENT: No oral or pharyngeal masses, ulceration or thrush noted, no sinus tenderness. Neck is supple with no thyromegaly or JVD noted. Lymph Nodes: No lymphadenopathy noted in the occipital, pre and post auricular, cervical, supra andinfraclavicular, axillary, epitrochlear, inguinal, and popliteal region. Lungs/Thorax: Clear to auscultation, no accessory muscles of respiration being used. Heart: Regular rate and rhythm, normal S1, S2 Abdomen: Soft, nontender, bowel sounds present, no appreciable hepatosplenomegaly, no palpable masses Extremeties: Good pulses bilaterally, no peripheral edema. Skin: Normal skin tone with no rash, petechiae, ecchymosis noted. Musculoskeletal: No pain on palpation over bony prominence, no edema, no evidence of gout, no jointor bony deformity ASSESSMENT: 73-year-old female with history of hypertension, anxiety disorder and hyperlipidemia represent recently presented with complaint of increasing abdominal pain and weight loss. She had colonoscopy donewhich showed mass in the ascending colon which is not obstructing and circumferential. Biopsy from the mass is consistent with moderately differentiated colon cancer with MSI intact and K-walker and Nras mutated. CT scan of chest abdomen pelvis was negative for any metastatic disease. She has appointment with Dr. Kapadia on 10/18/2022. She has disease involving bowel wall without any evidence of metastasis on the CT scan. On 11/08/2022 she underwent laparoscopic right hemicolectomy. 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 Twenty-four lymph nodes were removed in their were negative. Patient has pT3 pN0 stage II A disease. Overall clinically she is stable without any new symptoms complain. Physical examination is unremarkable. Recent CT scan of the chest was negative for metastasis. All her blood counts are in acceptable range. Discussed with the patient and daughter in detail about diagnosis reviewed all the available blood tests and CT scan finding with her. PLAN: Return clinic in 4 months with CBC, CMP and CEA The patient voiced understanding of all of the above. All questions and concerns were addressed in an apparently satisfactory manner. Yosvany Moe MD (This note was completed using the dictation program Fluency Direct. As such, there may be misspellings, word substitutions, or other variations that should not change the essence of the clinical content of this encounter note. If there is need for further clarification, please direct questions to me.) documented in this encounter Nursing Notes * Reddy Dsouza, MED ASSIST - 11/23/2023 10:35 AM EDT Patient identified by name and date of . Do you have any concerns about pain management for today's visit? No Living Will or Advance Directive for Health Care as noted on problem list. My [facility] is a way you can talk to your provider online through e-mail. Would you like to sign up? I can activate it for you? ALREADY ACTIVE BP 122/77 (BP Site: Left Arm, BP Position: Sitting, BP Cuff Size: Regular) | Pulse 67 | Temp 36.8 C (98.3 F) (Tympanic) | Wt 45.2 kg (99 lb 11.2 oz) | SpO2 98% | BMI 16.09 kg/m | BSA 1.45 m Patient was instructed to not get up on the exam table/exam chair until directed and assisted by their provider; patient is to remain seated in the chair/ wheelchair/ exam table/ exam chair for fall prevention and safety reasons. Patient is aware to have assistance to step down off exam table/exam chair with personnel. Patient voiced full comprehension of instructions. documented in this encounter Plan of Treatment Upcoming Encounters Date Type Department Care Team (Late st Contact Info) Description 12/06/2023 8:00 AM EDT Imaging Vascular Lab, [facility] 2nd Floor, [address] [place] [id number] 03/07/2024 8:30 AM EDT Office Visit Cardiology, [facility] [address] [place] [address] Martin Ko DO [address] [place] [id number] 04/03/2024 11:00 AM EST Office Visit Hematology/Oncology [facility] [address] [facility] [place] [phone] Yosvany Moe MD [address] [facility] [place] [address] 05/03/2024 9:00 AM EST Office Visit [facility] [address] [place] [address] Adriel Whitaker MD [address] [place] [address] Scheduled Orders Name Type Priority Associated Diagnoses Orde r Schedule CBC WITH WBC DIFFERENTIAL Lab Routine Cancer of ascending colon (HCC) Expected: 03/19/2024, Expires: 09/04/2024 COMPREHENSIVE METABOLIC PANEL Lab Routine Cancer of ascending colon (HCC) Expected: 03/19/2024, Expires: 09/04/2024 CEA Lab Routine Cancer of ascending colon (HCC) Expected: 03/19/2024, Expires: 09/04/2024 Scheduled Procedures Name Priority Associated Diagnoses Date/Ti [...] Comments DISCUSS TOBACCO CESSATION (REFER TO SMARTSET #[id number]) 1952 Alpha-1 Antitrypsin 1970 Hepatitis C Screening 1970 Cologuard 1997 Fecal Occult Blood Test 1997 Sigmoidoscopy 1997 Zoster Vaccines (1 of 2) 2002 DXA Scan 12/25/2005 12/25/1998 Mammogram 02/11/2017 02/12/2016, 08/29/2012 Pneumococcal Vaccine: 65+ Years (3 of 3 - PPSV23 or PCV20) 03/08/2019 03/08/2018, 10/13/2006, 03/04/1994 Depression Monitoring 03/31/2021 03/31/2020 COVID-19 Vaccine (3 - season) 2023 07/22/2020, 07/01/2020 DTaP,Tdap,and Td Vaccines (2 - Td or Tdap) 10/19/2023 10/18/2013, 05/09/1990, 05/09/1990 *CXR OR CT FOR COPD EVER 11/20/2023 Influenza Vaccine (FLU shot) (#1) 2024 04/05/2023, 01/28/2022, 02/12/2021, Additional history exists GFR 11/20/2024 11/21/2023, 07/07, 04/05/2023, Additional history exists O2 ASSESSMENT COMPLETED IN PAST YEAR FOR COPD 2024 11/23/2023 Albumin/Creatinine Ratio 11/04/2025 11/04/2022, 10/2011 Lipid Panel 11/20/2028 11/21/2023, 10/08, 09/18/2021, Additional history exists Colonoscopy 09/24/2032 09/24/2022, 09/24/2022 Colorectal Cancer Screening 09/24/2032 Lung Cancer Screening Completed 11/21/2023 HPV (Gardasil) Vaccine Aged Out No lo [...] as of this encounter Visit Diagnoses Diagnosis Cancer of ascending colon (HCC)- Primary Malignant neoplasm of ascending colon documented in this encounter Advance Directives * Full Code (Latest Code Status on File) Date Activated Date Inactivated Comments 11/08/2022 11:27 AM 11/11/2022 4:51 PM Question Answer Comments Discussion of Advance Directives occurred with: Patient Care Teams Principal Architect Relationship Specialty Start Date End Date Adriel Whitaker MD [address] [place] [address] PCP - General Family Medicine 10/20/17 documented as of this encounter"
--- OUTSIDE RECORDS SUMMARY | 2023-12-25 07:56 | External Medical Summary | Summary of Care ---
Author Name Unknown Organization [facility] Address [address] [place] [address] Phone [phone] Care Team Providers Care Sequins Winder Name Role Phone Adriel Whitaker MD Primary Care Provider [phone]- [phone] Reason for Visit * Reason Onset Date Comments Test Results 11/23/2023 Encounter Details Date Type Department Care Team (Late st Contact Info) Description 11/23/2023 Telephone Cardiology, [facility] [address] [place] [address] Martin Ko O, DO [address] [place] [address] Test Results Allergies Active Allergy Reactions Criticality Noted Date [...] Base) MCG/ACT Inhalation Aerosol Solution 01/12/2023 Active Aspirin 81 MG Oral Tablet Chewable Take 1 Tablet by mouth in the morning. 34 Tablet 11 03/02/2023 Active Losartan Potassium 100 MG Oral Tablet (Cozaar) Take 1 Tablet by mouth in the morning. 90 Tablet 3 04/05/2023 Active Pantoprazole Sodium 40 MG Oral Tablet Delayed Release (Protonix)Indica tions:Abdominal pain, epigastric Take 1 tab twice daily for 4 weeks then take 1 tab daily. 60 Tablet 5 06/02/2023 Active Additional Information Patient not taking.Reported on 08/11/2023 PARoxetine HCl ER 12.5 MG Oral Tablet Extended Release 24 Hour (Paxil CR) Take 1 Tablet by mouth in the morning. 90 Tablet 3 06/30/2023 Active traZODone HCl 100 MG Oral Tablet (Desyrel)Indicat ions:Insomnia, unspecified type Take 1 Tablet by mouth at bedtime. 90 Tablet 3 07/18/2023 Active amLODIPine Besylate 5 MG Oral Tablet (Norvasc)Indicat ions:Hypertensio n goal BP (blood pressure) < 140/90 Take 1 Tablet by mouth in the morning. 90 Tablet 3 08/15/2023 Active Carvedilol 3.125 MG Oral Tablet (Coreg) Take 1 Tablet by mouth in the morning and 1 Tablet before bedtime. 204 Tablet 3 08/31/2023 Active Albuterol Sulfate HFA 108 (90 Base) MCG/ACT Inhalation Aerosol SolutionIndicati ons:COPD, severity to be determined (HCC) Inhale 2 Puffs by mouth every 6 hours as needed for Shortness of Breath. 18 g 5 10/11/2023 Active ALPRAZolam 0.25 MG Oral Tablet (xaNAX)Indicatio ns:Agoraphobia with panic disorder,Severe anxiety with panic,Controlled substance agreement signed,Anxiety Take 1 Tablet by mouth 3 times a day as needed for Anxiety. 90 Tablet 11/02/2023 Active Rosuvastatin Calcium 20 MG Oral Tablet (Crestor)Indicat ions:Dyslipidemi a, goal LDL below 100 Take 1 Tablet by mouth in the morning. 90 Tablet 3 11/23/2023 Active Simvastatin 20 MG Oral Tablet (Zocor)Indicatio ns:Dyslipidemia, goal LDL below 100 take 1 tablet by mouth at bedtime 90 Tablet 1 02/05/2023 Discontinue d(Medicatio n/Dose Changed) documented as of this encounter (statuses as [...] encounter Miscellaneous Notes * Telephone Encounter - Patti Loyola CMA - 11/23/2023 11:54 AM EDT Pt aware and agreeable to recommendations. Orders placed. Rx pended. [facility] * Telephone Encounter - Patti Loyola CMA - 11/23/2023 11:53 AM EDT ----- Message from Martin Ko DO sent at 2023 3:50 PM EDT ----- LDL uncontrolled. Recommend discontinuation of simvastatin in favor of rosuvastatin 20 mg daily. Repeat fasting lipid panel and ALT in 6 to 12 weeks. documented in this encounter Plan of Treatment Upcoming Encounters Date Type Department Care Team (Late st Contact Info) Description 12/06/2023 8:00 AM EDT Imaging Vascular Lab, [facility] [address] [place] [address] 03/07/2024 8:30 AM EDT Office Visit Cardiology, [facility] [address] [place] [address] Martin Ko, [address] [place] [address] 04/03/2024 11:00 AM EST Office Visit [facility]ology[facility]On[facility] [address] [facility] [place] [phone] Yosvany Moe MD [address] [facility] [place] [address] 05/03/2024 9:00 AM EST Office Visit [facility] [address] [place] [address] Adriel Whitaker MD [address] [place] [address] Scheduled Orders Name Type Priority Associated Diagnoses Orde r Schedule LIPID PANEL WITH DIRECT LDL IF TG IS HIGH Lab Routine Dyslipidemia, goal LDL below 100 Expected: 01/24/2024 (Approximate), Expires: 2024 ALT Lab Routine Dyslipidemia, goal LDL below 100 Expected: 01/24/2024 (Approximate), Expires: 2024 Scheduled Procedures Name Priority Associated Diagnoses Date/Ti [...] Comments DISCUSS TOBACCO CESSATION (REFER TO SMARTSET #4445) 1950 Alpha-1 Antitrypsin 1970 Hepatitis C Screening [...] COPD 2024 11/23/2023 Albumin/Creatinine Ratio 11/04/2025 11/04/2022, 01/0 10/2011 Lipid Panel 11/20/2028 11/21/2023, 10/08, 09/18/2021, [...] as of this encounter Visit Diagnoses Diagnosis Dyslipidemia, goal LDL below 100- Primary Other and unspecified hyperlipidemia Palpitations documented in this encounter Advance Directives * Full Code (Latest Code Status on File) Date Activated Date Inactivated Comments 11/08/2022 11:27 AM 11/11/2022 4:51 PM Question Answer Comments Discussion of Advance Directives occurred with: Patient Care Teams Sequins Winder Relationship Specialty Start Date End Date Adriel Whitaker MD [address] [place] [address] PCP - General Family Medicine 10/20/17 documented as of this encounter
--- OUTSIDE RECORDS SUMMARY | 2023-12-25 07:56 | External Medical Summary | Summary of Care ---
Author Name Unknown Organization [facility] Address [address] [place] [address] Phone [phone] Care Team Providers Care Button Riveter Name Role Phone Marisela Vaughan MD Primary Care Provider +1- [phone] Reason for Visit * Reason Onset Date Comments Medication Refill 12/13/2023 Encounter Details Date Type Department Care Team (Late st Contact Info) Description 12/13/[address] [facility] [address] [place] [address] Marisela Vaughan MD [address] [place] [address] Agoraphobia with panic disorder; Severe anxiety with panic; Controlled substance agreement signed; Anxiety Allergies Active Allergy Reactions Criticality Noted Date Comments Cisapride 11/05/1998 diarrhea Doxycycline 11/05/1998 diarrhea Macrolides And Ketolides 05/17/2000 zithromax, diarrhea Salicylates 11/05/1998 intol documented as of this encounter (statuses as of 12/14/2023) Medications Medication Sig Dispensed Refills Start Date [...] of Breath. 18 g 5 10/11/2023 Active Rosuvastatin Calcium 20 MG Oral Tablet (Crestor)Indicat ions:Dyslipidemi a, goal LDL below 100 Take 1 Tablet by mouth in the morning. 90 Tablet 3 11/23/2023 Active ALPRAZolam 0.25 MG Oral Tablet (xaNAX)Indicatio ns:Agoraphobia with panic disorder,Severe anxiety with panic,Controlled substance agreement signed,Anxiety Take 1 Tablet by mouth 3 times a day as needed for Anxiety. 90 Tablet 12/14/2023 Active ALPRAZolam 0.25 MG Oral Tablet (xaNAX)Indicatio ns:Agoraphobia with panic disorder,Severe anxiety with panic,Controlled substance agreement signed,Anxiety Take 1 Tablet by mouth 3 times a day as needed for Anxiety. 90 Tablet 11/02/2023 Discontinue d(Refill) documented as of this encounter (statuses as of 12/14/2023) Active Problems Problem Noted Date Diagnosed Date [...] as of this encounter (statuses as of 12/14/2023) Resolved Problems Problem Noted Date Diagnosed Date [...] as of this encounter (statuses as of 12/14/2023) Immunizations Name Administration Dates Next Due Pneumococcal [...] encounter Miscellaneous Notes * Telephone Encounter - Marisela Vaughan MD - 12/14/2023 11:52 AM EDTSigned Prescriptions: Disp Refills ALPRAZolam 0.25 MG Oral Tablet (xaNAX) 90 Tab*0 Sig: Take 1 Tablet by mouth 3 times a day as needed for Anxiety.Authorizing Provider: MARISELA VAUGHAN * Telephone Encounter - Marty Stacy [facility] - 12/14/2023 11:40 AM EDT Pending Prescriptions: Disp Refills ALPRAZolam 0.25 MG Oral Tablet (xaNAX) 90 Tab*0 Sig: Take 1 Tablet by mouth 3 times a day as needed for Anxiety. * Telephone Encounter - Marty Stacy RP - 12/14/2023 11:40 AM EDT I have reviewed the patients controlled substance dispensing history in the Prescription Drug Monitoring Program in compliance with the [facility] regulations before prescribing a controlled substance. PDMP checked on 12/14/2023. Pending Prescriptions: Disp Refills ALPRAZolam 0.25 MG Oral Tablet (xaNAX) 90 Tab*0 Sig: Take 1 Tablet by mouth 3 times a day as needed for Anxiety. Last Visit: 10/11/2023 (in office), Visit date not found (telemedicine) Next Visit: 05/03/2024 Date medication was last filled: 11/01 Date medication is due for refill: 12/01 Pharmacy: [id number] [address] [place] [address] Is this request for a controlled substance? Yes and Urine Drug Screen was completed Toxicology results: Results for orders placed or performed in visit on 01/21/23 TOXICOLOGY, URINE SCREEN W/ CONFIRMATION Result Value Amphetamines Screen, U Negative Benzodiazepines Screen, U Negative Cannabinoids Screen, U Negative Cocaine Metabolite Screen, U Negative Fentanyl Screen, U Negative Hydrocodone Screen, U Negative Methadone Metabolite Screen, U Negative Morphine/Codeine Screen, U Negative Oxycodone Screen, U Negative Narrative Cutoff Concentrations: Drug Level Amphetamines 500 ng/mL Benzodiazepines 100 ng/mL Cannabinoids 50 ng/mL Cocaine Metabolite 150 ng/mL Fentanyl 1 ng/mL Hydrocodone / Hydromorphone 300 ng/mL Methadone Metabolite 100 ng/mL Morphine / Codeine 300 ng/mL Oxycodone / Oxymorphone 100 ng/mL Screening results are presumptive and can only be used for medical purposes. Positive screening results are reflexed to confirmatory testing. Please approve if appropriate. Thanks, Marty Stacy, PharmD Clinical Pharmacist [facility] ([facility]) [phone] 12/14/2023,11:40 AM * Telephone Encounter - Aleja Ornelas CPhT - 12/13/2023 11:08 AM EDT Did you pend patient's preferred pharmacy and medication before forwarding?yes Pharmacy: [facility][id number] [id number] [facility] Pending Prescriptions: Disp Refills ALPRAZolam 0.25 MG Oral Tablet (xaNAX) 90 Tab*0 Sig: Take 1 Tablet by mouth 3 times a day as needed for Anxiety. Last Visit: 10/11/2023 (in office), Visit date not found (telemedicine) Next Visit: 05/03/2024 If no future appointments scheduled, and last appointment is greater than a year ago, please schedule patient for a follow-up appointment Last date the medication was ordered: 11/02/23 Is this request for a controlled substance?Yes, What was the last refill date 11/02/23 w/ quantity 90 and dosage 0.25mg and Urine Drug Screen was completed Urine Drug Screen: Results for orders placed or performed in visit on 01/21/23 TOXICOLOGY, URINE SCREEN W/ CONFIRMATION Result Value Amphetamines Screen, U Negative Benzodiazepines Screen, U Negative Cannabinoids Screen, U Negative Cocaine Metabolite Screen, U Negative Fentanyl Screen, U Negative Hydrocodone Screen, U Negative Methadone Metabolite Screen, U Negative Morphine/Codeine Screen, U Negative Oxycodone Screen, U Negative Narrative Cutoff Concentrations: Drug Level Amphetamines 500 ng/mL Benzodiazepines 100 ng/mL Cannabinoids 50 ng/mL Cocaine Metabolite 150 ng/mL Fentanyl 1 ng/mL Hydrocodone / Hydromorphone 300 ng/mL Methadone Metabolite 100 ng/mL Morphine / Codeine 300 ng/mL Oxycodone / Oxymorphone 100 ng/mL Screening results are presumptive and can only be used for medical purposes. Positive screening results are reflexed to confirmatory testing. Patient Phone Numbers Labs: Lab Results Component Value Date/Time CREAT 0.9 11/21/2023 08:18 AM CREAT 0.7 02/06/2019 07:48 AM POTASSIUM 3.7 11/21/2023 08:18 AM POTASSIUM 4.6 02/06/2019 07:48 AM TSH 0.53 08/02/2022 12:23 PM TSH 0.70 05/11/2005 11:13 AM LDLCALC 90 11/21/2023 08:18 AM LDLCALC 108 02/06/2019 07:48 AM LDLDIRECT 109 03/17/2020 07:46 AM ALT 23 11/21/2023 08:18 AM ALT 11 02/06/2019 07:48 AM documented in this encounter Plan of Treatment Upcoming Encounters Date Type Department Care Team (Late st Contact Info) Description 12/20/2023 7:30 AM EDT Imaging Vascular Lab, [facility] 2nd [facility] [address] [facility] [place] [address] 03/07/2024 8:30 AM EDT Office Visit Cardiology, [facility] [address] [facility] [place] [address] Martin Ko, [address] [facility] [place] [address] 04/03/2024 11:00 AM EST Office Visit Hematology/Oncology [facility] [address] [facility] [place] [phone] Yosvany Moe MD [address] [facility] [place] [address] 05/03/2024 9:00 AM EST Office [facility] [address] [facility] [phone] Marisela Vaughan MD [address] [place] [address] Scheduled Procedures Name Priority Associated Diagnoses Date/Ti [...] Comments DISCUSS TOBACCO CESSATION (REFER TO SMARTSET #4172) 1950 Alpha-1 Antitrypsin 1970 Hepatitis C Screening 1970 Cologuard 1997 Fecal Occult Blood Test 1997 Sigmoidoscopy 1997 Zoster Vaccines (1 of 2) 2002 DXA Scan 12/25/2005 12/25/1998 Mammogram 02/11/2017 02/12/2016, 08/29/2012 Adult Wellness Visit 2018 Pneumococcal Vaccine: 65+ Years (3 of 3 - PPSV23 or PCV20) 03/08/2019 03/08/2018, 10/13/2006, 03/04/1994 Depression Monitoring 03/31/2021 03/31/2020 COVID-19 Vaccine (3 - season) 2023 07/22/2020, 07/01/2020 DTaP,Tdap,and Td Vaccines (2 - Td or Tdap) 10/19/2023 10/18/2013, 05/09/1990, 05/09/1990 Influenza Vaccine (FLU shot) (#1) 2024 04/05/2023, [...] Advance Directives occurred with: Patient Care Teams Button Riveter Relationship Specialty Start Date End Date Marisela Vaughan MD [address] [place] [address] PCP - General Family Medicine 10/20/17 documented as of this encounter
--- OUTSIDE RECORDS SUMMARY | 2023-12-25 07:56 | External Medical Summary ---
Author Name Unknown Address Unknown Organization [facility] [address] [place] [address] Laboratory Report Ordering Provider Test Date Status [place] 11/21/2023 08:18:52 Final Observation Date Value Abnormality Reference (Units ) Status BUN 11/21/2023 08:18:52 19 6-20 (mg/dL) Final Creatinine 11/21/2023 08:18:52 0.9 0.5-1.0 (mg/dL) Final Glomerular filtration rate/1.73 sq M.predicted [Volume Rate/Area] in Serum, Plasma or Blood by Creatinine-based formula (CKD-EPI) 11/21/2023 08:18:52 71 >=60 (mL/min) Final eGFR is calculated based on the CKD-EPI 2020 equation Sodium 11/21/2023 08:18:52 140 135-146 (m mol/L) Final Potassium 11/21/2023 08:18:52 3.7 3.5-5.1 (m mol/L) Final Cl 11/21/2023 08:18:52 98 98-107 (mm ol/L) Final CO2 11/21/2023 08:18:52 27 22-32 (mmo l/L) Final Anion gap 11/21/2023 08:18:52 15 7-15 (mmol /L) Final Glucose 11/21/2023 08:18:52 98 70-120 (mg /dL) Final Albumin 11/21/2023 08:18:52 4.6 3.8-5.0 (g /dL) Final AST (Aspartate aminotransferase) 11/21/2023 08:18:52 24 10-35 (U/L) Final Alk Phos 11/21/2023 08:18:52 72 35-130 (U/ L) Final Bilirubin, Total 11/21/2023 08:18:52 0.5 <=1 .2 (mg/dL) Final Calcium 11/21/2023 08:18:52 9.7 8.4-10.2 ( mg/dL) Final Protein 11/21/2023 08:18:52 7.4 6.0-8.3 (g /dL) Final ALT (Alanine aminotransferase) 11/21/2023 08:18:52 23 10-35 (U/L) Final Performing Location [facility] [address] [facility] [address]
--- OUTSIDE RECORDS SUMMARY | 2023-12-25 07:56 | External Medical Summary | Summary of Care ---
Author Name Unknown Organization [facility] Address [address] [place] [address] Phone [phone] Care Team Providers Care Box Toe Stitcher Name Role Phone Marisela Vaughan MD Primary Care Provider +1- [phone] Reason for Visit * Reason Onset Date Comments Medication Refill 11/02/2023 Encounter Details Date Type Department Care Team (Late st Contact Info) Description 11/02/2023 Refill [facility] [address] [place] [address] Marisela Vaughan MD [address] [place] [address] Agoraphobia with panic disorder; Severe anxiety with panic; Controlled substance agreement signed; Anxiety Allergies Active Allergy Reactions Criticality Noted Date Comments Cisapride 11/05/1998 diarrhea Doxycycline 11/05/1998 diarrhea Macrolides And Ketolides 05/17/2000 zithromax, diarrhea Salicylates 11/05/1998 intol documented as of this encounter (statuses as of 11/02/2023) Medications Medication Sig Dispensed Refills Start Date [...] 01/12/2023 Active Simvastatin 20 MG Oral Tablet (Zocor)Indicatio [...] needed for Anxiety. 90 Tablet 11/02/2023 Active ALPRAZolam 0.25 MG Oral Tablet (xaNAX)Indicatio ns:Agoraphobia with panic disorder,Severe anxiety with panic,Controlled substance agreement signed,Anxiety Take 1 Tablet by mouth 3 times a day as needed for Anxiety. 90 Tablet 09/20/2023 Discontinue d(Refill) documented as of this encounter (statuses as of 11/02/2023) Active Problems Problem Noted Date Diagnosed Date [...] as of this encounter (statuses as of 11/02/2023) Resolved Problems Problem Noted Date Diagnosed Date [...] as of this encounter (statuses as of 11/02/2023) Immunizations Name Administration Dates Next Due Pneumococcal [...] Telephone Encounter - Marisela Vaughan MD - 11/02/2023 3:17 PM EDTSigned Prescriptions: Disp Refills ALPRAZolam 0.25 MG Oral Tablet (xaNAX) 90 Tab*0 Sig: Take 1 Tablet by mouth 3 times a day as needed for Anxiety.Authorizing Provider: MARISELA VAUGHAN * Telephone Encounter - Reji Clayton [facility] - 11/02/2023 3:14 PM EDTPending Prescriptions: Disp Refills ALPRAZolam 0.25 MG Oral Tablet (xaNAX) 90 Tab*0 Sig: Take 1 Tablet by mouth 3 times a day as needed for Anxiety. * Telephone Encounter - Reji Clayton [facility] - 11/02/2023 3:10 PM EDT I have reviewed the patients controlled substance dispensing history in the Prescription Drug Monitoring Program in compliance with the [facility] regulations before prescribing a controlled substance. PDMP checked on 11/02/2023. Pending Prescriptions: Disp Refills ALPRAZolam 0.25 MG Oral Tablet (xaNAX) 90 Tab*0 Sig: Take 1 Tablet by mouth 3 times a day as needed for Anxiety. Last Visit: 10/11/2023 (in office), Visit date not found (telemedicine) Next Visit: 05/03/2024 Date medication was last filled: 09-20-23 Date medication is due for refill: 10-19-23 Pharmacy: [id number] [address] [facility] Is this request for a controlled substance? [...] to confirmatory testing. Please approve if appropriate. Law [place].Ph. Clinical Pharmacist [facility] ([facility]) [address] [place] [address] [address] [place] [address] : [phone] 11/02/2023,3:10 PM * Telephone Encounter - Brit Jacobson CPhT - 11/02/2023 9:42 AM EDT Did you pend patient's preferred pharmacy and medication before forwarding?yes Pharmacy: [facility][id number] [address] [facility] Pending Prescriptions: Disp Refills ALPRAZolam 0.25 MG [...] appointment Last date the medication was ordered: 09/20/2023 Is this request for a controlled substance?Yes, What was the last refill date 09/20/2023 w/ [id number] and dosage 0.25 MG and Urine Drug Screen was completed Urine [...] Labs: Lab Results Component Value Date/Time CREAT 0.8 07/20/2023 09:19 AM CREAT 0.7 02/06/2019 07:48 AM POTASSIUM 3.7 07/20/2023 09:19 AM POTASSIUM 4.6 02/06/2019 07:48 AM TSH 0.53 08/02/2022 12:23 PM TSH 0.70 05/11/2005 11:13 AM LDLCALC 75 11/04/2022 10:16 AM LDLCALC 108 02/06/2019 07:48 AM LDLDIRECT 109 03/17/2020 07:46 AM ALT 30 07/20/2023 09:19 AM ALT 11 02/06/2019 07:48 AM documented in this encounter Plan of Treatment Upcoming Encounters Date Type Department Care Team (Late st Contact Info) Description 11/08/2023 8:00 AM EDT Imaging Vascular Lab, [facility] 2nd [facility] [address] [facility] [place] [address] 11/14/2023 9:00 AM EDT Laboratory Laboratory, [address] [place] [phone] [facility] [place] [address] [place] [address] 11/14/2023 9:15 AM EDT Imaging Radiology [facility] 1[address] [facility] [address] [place] [address] 11/23/2023 10:30 AM EDT Office Visit Hematology/Oncology [facility] [place] [address] [place] [phone] Yosvany Moe MD [address] [place] [address] 03/07/2024 8:30 AM EDT Office Visit Cardiology, [facility] [address] [facility] [place] [address] Kopinski, Martin O, DO [address] [place] [address] 05/03/2024 9:00 AM EST Office Visit [facility] [address] [place] [phone] Marisela Vaughan MD [address] [place], [place] [phone] Scheduled Procedures Name Priority Associated Diagnoses Date/Ti [...] Comments DISCUSS TOBACCO CESSATION (REFER TO SMARTSET #7970) 1950 Alpha-1 Antitrypsin 1970 Hepatitis C Screening [...] FOR COPD 11/09/2023 11/08/2022 GFR 07/19/2024 07/20/2023, 11/2 12/2022, 03/08/2023, Additional history exists Albumin/Creatinine Ratio 11/04/2025 11/04/2022, 01/0 10/2011 Lipid [...] Advance Directives occurred with: Patient Care Teams Box Toe Stitcher Relationship Specialty Start Date End Date Marisela Vaughan MD [address] [place] [address] PCP - General Family Medicine 10/20/17 documented as of this encounter
--- OUTSIDE RECORDS SUMMARY | 2023-12-25 07:57 | External Medical Summary | Summary of Care ---
Author Name Unknown Organization [facility] Address [address] [place] [address] Phone [phone] Care Team Providers Care Machine Taper Name Role Phone Adriel Whitaker MD Primary Care Provider [phone] Reason for Visit * Reason Comments Follow Up Patient is here toda y for follow up visit Patient states she thinks she has a sinus infection; yellow drainage out of nose and headache Encounter Details Date Type Department Care Team (Late st Contact Info) Description 10/11/2023 2:40 PM EDT Office Visit [facility] [address] [place] [address] Adriel Whitaker MD [address], [place] [id number] Acute sinusitis, recurrence not specified, unspecified location*; COPD, severity to be determined ([facility]); Dyslipidemia, goal LDL below 100; Essential hypertension with goal blood pressure less than 140/90; Severe anxiety with panic; Tobacco use disorder; Adenocarcinoma of colon (HCC) Allergies Active Allergy Reactions Criticality Noted Date Comments Cisapride 11/05/1998 diarrhea Doxycycline 11/05/1998 diarrhea Macrolides And Ketolides 05/17/2000 zithromax, diarrhea Salicylates 11/05/1998 intol documented as of this encounter (statuses as of 10/30/2023) Medications Medication Sig Dispensed Refills Start Date [...] 01/12/2023 Active Simvastatin 20 MG Oral Tablet (Zocor)Indication s:Dyslipidemia, goal LDL below 100 take 1 tablet by mouth at bedtime 90 Tablet 1 02/05/2023 Active Aspirin 81 MG Oral Tablet Chewable Take 1 Tablet by mouth in the morning. 34 Tablet 11 03/02/2023 Active Losartan Potassium 100 MG Oral Tablet (Cozaar) Take 1 Tablet by mouth in the morning. 90 Tablet 3 04/05/2023 Active Pantoprazole Sodium 40 MG Oral Tablet Delayed Release (Protonix)Indicat ions:Abdominal pain, epigastric Take 1 tab twice daily for 4 weeks then take 1 tab daily. 60 Tablet 5 06/02/2023 Active Additional Information Patient not taking.Reported on 08/11/2023 PARoxetine HCl ER 12.5 MG Oral Tablet Extended Release 24 Hour (Paxil CR) Take 1 Tablet by mouth in the morning. 90 Tablet 3 06/30/2023 Active traZODone HCl 100 MG Oral Tablet (Desyrel)Indicati ons:Insomnia, unspecified type Take 1 Tablet by mouth at bedtime. 90 Tablet 3 07/18/2023 Active amLODIPine Besylate 5 MG Oral Tablet (Norvasc)Indicati ons:Hypertension goal BP (blood pressure) < 140/90 Take 1 Tablet by mouth in the morning. 90 Tablet 3 08/15/2023 Active Carvedilol 3.125 MG Oral Tablet (Coreg) Take 1 Tablet by mouth in the morning and 1 Tablet before bedtime. 204 Tablet 3 08/31/2023 Active ALPRAZolam 0.25 MG Oral Tablet (xaNAX)Indication s:Agoraphobia with panic disorder,Severe anxiety with panic,Controlled substance agreement signed,Anxiety Take 1 Tablet by mouth 3 times a day as needed for Anxiety. 90 Tablet 09/20/2023 Active Albuterol Sulfate HFA 108 (90 Base) MCG/ACT Inhalation Aerosol SolutionIndicatio ns:COPD, severity to be determined ([facility]) Inhale 2 Puffs by mouth every 6 hours as needed for Shortness of Breath. 18 g 5 10/11/2023 Active Amoxicillin 500 MG Oral Capsule (Amoxil)Indicatio ns:Acute sinusitis, recurrence not specified, unspecified location Take 1 Capsule by mouth in the morning and 1 Capsule at noon and 1 Capsule before bedtime. Do all this for 10 days. 30 Capsule 10/11/2023 documented as of this encounter (statuses as of 10/30/2023) Active Problems Problem Noted Date Diagnosed Date [...] as of this encounter (statuses as of 10/30/2023) Resolved Problems Problem Noted Date Diagnosed Date [...] as of this encounter (statuses as of 10/30/2023) Immunizations Name Administration Dates Next Due Pneumococcal [...] Sign Reading Time Taken Comments Blood Pressure 88/62 10/11/2023 2:35 PM EDT Pulse 91 10/11/2023 2:35 PM EDT Temperature 36.1 C (96.9 F) 10/11/2023 2:35 PM ED T Respiratory Rate 16 10/11/2023 2:35 PM EDT Oxygen Saturation 98% 10/11/2023 2:35 PM EDT Inhaled Oxygen Concentration - - Weight 46.4 kg (102 lb 3.2 oz) 10/11/2023 2:35 P M EDT Height 167.6 cm (5' 6") 10/11/2023 2:35 PM EDT Body Mass Index 16.5 10/11/2023 2:35 PM EDT documented in this [...] as of this encounter Progress Notes * Adriel Whitaker MD - 10/11/2023 3:02 PM EDT Subjective: Faith Chavis is a 72 year old female here today for Chief Complaint Patient presents with Follow Up Patient is here today for follow up visit Patient states she thinks she has a sinus infection; yellow drainage out of nose and headache Pt presents for routine follow up. She is following with oncology for adenocarcinoma of the colon. S/P laparoscopic right hemicolectomy 11/08/22 (pT3pN0 stage II A disease). She continues to struggle with anxiety. Feels that she is not able to function without alprazolam) She is concerned about symptoms of sinus infection. Has had a few weeks of nasal and sinus congestion. Drainage is yellow and symptoms are worsening. No fever or resp distress. BP low today. Denies chest pain, shortness of breath, cough, nausea, vomiting, abd pain, dysuria, urinary frequency, nocturia, fever, melena, hematochezia, peripheral edema. Past Medical History: Diagnosis Date Dyslipidemia, goal LDL below 100 Gastro-esophageal reflux Generalized anxiety disorder HTN, goal below 140/90 Past Surgical History: Procedure Laterality Date CAROTID (INTERNAL) ARTERY CATHETHER PLACEMENT Right 09/07/2022 CATHETER PLACEMENT INTERNAL CAROTID ARTERY RADIAL ACCESS performed by Ari Toney MD [place] [facility]COPY, DIAGNOSTIC (RECTUM) N/A 09/24/2022 COLONOSCOPY FLEXIBLE PROXIMAL DIAGNOSTIC performed by Hannah Lepe MD at [place] [facility] [place], FLEXIBLE, DIAGNOSTIC N/A 09/24/2022 ESOPHAGOGASTRODUODENOSCOPY (EGD), FLEXIBLE, TRANSORAL, DIAGNOSTIC performed by Hannah Lepe MD at [place] [facility] INFORMATION 3 pregnancies, l&D x2, misscarriage LAPAROSCOPIC COLECTOMY PARTIAL WITH ANASTOMOSIS N/A 11/08/2022 LAPAROSCOPIC PARTIAL COLECTOMY WITH ANASTOMOSIS performed by Gina Kapadia MD at [place] [facility] [place]IGATE/CUT OVIDUCT(S) Tubal Ligation Review of patient's allergies indicates: Allergen Reactions Cisapride diarrhea Doxycycline diarrhea Macrolides And Ketolides zithromax, diarrhea Salicylates intol Current Outpatient Medications Medication Sig Dispense Refill [...] (Tylenol) every 24 hours. 30 Tablet 0 Simvastatin 20 MG Oral Tablet (Zocor) take 1 tablet by mouth at bedtime 90 Tablet 1 Aspirin 81 MG Oral Tablet Chewable Take 1 Tablet by mouth in the morning. 34 Tablet 11 Losartan Potassium 100 MG Oral Tablet (Cozaar) Take 1 Tablet by mouth in the morning. 90 Tablet 3 PARoxetine HCl ER 12.5 MG Oral Tablet [...] 1 Tablet before bedtime. 204 Tablet 3 ALPRAZolam 0.25 MG Oral Tablet (xaNAX) Take 1 Tablet by mouth 3 times a day as needed for Anxiety. 90 Tablet 0 Albuterol Sulfate HFA 108 (90 Base) MCG/ACT Inhalation Aerosol Solution Inhale 2 Puffs by mouth every 6 hours as needed for Shortness of Breath. 18 g 5 Albuterol Sulfate HFA 108 (90 Base) MCG/ACT Inhalation Aerosol Solution (Patient not taking: Reported on 08/31/2023) Pantoprazole Sodium 40 MG Oral Tablet Delayed Release (Protonix) Take 1 tab twice daily for 4 weeksthen take 1 tab daily. (Patient not taking: Reported on 08/11/2023) 60 Tablet 5 No current facility-administered medications for this visit. Objective: BP 88/62 | Pulse 91 | Temp 36.1 C (96.9 F) (Temporal Artery) | Resp 16 | Ht 1.676 m (5' 6") | Wt 46.4 kg (102 lb 3.2 oz) | SpO2 98% | BMI 16.50 kg/m | BSA 1.47 m GEN: NAD HEENT: Benign NECK: Supple with no LAD, TM, JVD CHEST: CTA B CV: RRR ABD: Soft, NT/ND, No HSM, NABS EXT: No c,c,e Assessment and Plan: Acute sinusitis, recurrence not specified, unspecified location (Primary) - Amoxicillin 500 MG Oral Capsule (Amoxil); Take 1 Capsule by mouth in the morning and 1 Capsule atnoon and 1 Capsule before bedtime. Do all this for 10 days. COPD, severity to be determined (HCC) - Albuterol Sulfate HFA 108 (90 Base) MCG/ACT Inhalation Aerosol Solution; Inhale 2 Puffs by mouth every 6 hours as needed for Shortness of Breath. Dyslipidemia, goal LDL below 100 Essential hypertension with goal blood pressure less than 140/90 Severe anxiety with panic Tobacco use disorder Adenocarcinoma of colon (HCC) -continue current treatments. -follow up with oncology as planned. -review importance of trying to decrease use of alprazolam dangers of chronic use of benzodiazepines. Follow Up: Return in about 6 months (around 04/11/2024) for recheck. | For: recheck 35 min with pt Adriel Whitaker MD documented in this encounter Nursing Notes * Cornell Torres MED ASSIST - 10/11/2023 2:39 PM EDT The patient has been properly identified by confirmation of name and date of . Chief Complaint Patient presents with Follow Up Patient is here today for follow up visit Patient states she thinks she has a sinus infection; yellow drainage out of nose and headache documented in this encounter Plan of Treatment Upcoming Encounters Date Type Department Care Team (Late st Contact Info) Description 11/01/2023 8:30 AM EDT Office Visit Cardiology, [facility] [address] [address] [address] [place] [address] 11/14/2023 9:00 AM EDT [facility] [address] [place] [id number] Hilda Mcclain [facility] [address] [place] [address] 11/14/2023 9:15 AM EDT Imaging Radiology [facility] [address] [facility] [place] [address] 11/23/2023 10:30 AM EDT Office Visit Hematology/Oncology [facility] [address] [place] [id number] Yosvany Moe MD [address] [place] [address] 03/07/2024 8:30 AM EDT Office Visit Cardiology, [facility] [address] [facility] [place] [address] [address], [address] [facility] [place] [address] 05/03/2024 9:00 AM EST Office Visit [facility] [address] [place] [phone] Adriel Whitaker MD [address] [place] [address] Scheduled Procedures Name Priority Associated Diagnoses Date/Ti [...] Comments DISCUSS TOBACCO CESSATION (REFER TO SMARTSET #[id number]) 1950 Alpha-1 Antitrypsin 1970 Hepatitis C Screening [...] as of this encounter Visit Diagnoses Diagnosis Acute sinusitis, recurrence not specified, unspecified location- Primary COPD, severity to be determined (HCC) Chronic airway obstruction, not elsewhere classified Dyslipidemia, goal LDL below 100 Other and unspecified hyperlipidemia Essential hypertension with goal blood pressure less than 140/90 Severe anxiety with panic Tobacco use disorder Adenocarcinoma of colon (HCC) Malignant neoplasm of colon, unspecified site documented in this encounter Advance Directives * Full Code (Latest Code Status on File) Date Activated Date Inactivated Comments 11/08/2022 11:27 AM 11/11/2022 4:51 PM Question Answer Comments Discussion of Advance Directives occurred with: Patient Care Teams Machine Taper Relationship Specialty Start Date End Date Adriel Whitaker MD [address] [place] [id number] PCP - General Family Medicine 10/20/17 documented as of this encounter
--- OUTSIDE RECORDS SUMMARY | 2023-12-25 07:57 | External Medical Summary | Summary of Care ---
Author Name Unknown Organization [facility] Address [address] [place] [address] Phone [phone] Care Team Providers Care Digital Design Engineer Name Role Phone Adriel Whitaker MD Primary Care Provider [phone]- [phone] Reason for Referral * Evaluate & Treat - Unlimited Visits (Within 10 days (routine)) - Authorized Specialty Diagnoses / Procedures Referred By Contact Referred To Contact Cardiovascular Medicine / Cardiology Diagnoses Hypertrophic cardiomyopathy (HCC) Martin Ko DO [address] [place] [address] Darell Engel MD [address] [place] [address] Referral ID Status Reason Start Date Expiration Date Visits Requested Visits Authorized [id number] Authorized Specialty Services Required 11/01/[phone] Question Answer Referral Priority Within 10 days (routine) Where should this appointment be scheduled? [facility] To which of the following clinics are you referring your patient? Heart Failure Clinic Comments MRI evidence of HCM Reason for Visit * Reason Comments Follow Up Encounter Details Date Type Department Care Team (Latest Contact Info) Description 11/01/2023 8:30 AM EDT Office Visit Cardiology, [facility] [address] [place] [address] Martin Ko DO [address] [place] [address] Hypertrophic cardiomyopathy (HCC)*; LVH (left ventricular hypertrophy); Essential hypertension with goal blood pressure less than 130/80; Asymptomatic stenosis of left carotid artery Allergies Active Allergy Reactions Criticality Noted Date Comments Cisapride 11/05/1998 diarrhea Doxycycline 11/05/1998 diarrhea Macrolides And Ketolides 05/17/2000 zithromax, diarrhea Salicylates 11/05/1998 intol documented as of this encounter (statuses as of 11/01/2023) Medications Medication Sig Dispensed Refills Start Date [...] 08/31/2023 Active ALPRAZolam 0.25 MG Oral Tablet (xaNAX)Indications [...] of Breath. 18 g 5 10/11/2023 Active documented as of this encounter (statuses as of 11/01/2023) Active Problems Problem Noted Date Diagnosed Date [...] as of this encounter (statuses as of 11/01/2023) Resolved Problems Problem Noted Date Diagnosed Date [...] treated with Protopic GENERALIZED ANXIETY DIS 02/25/2003 08/07/2014 HTN, goal below 140/90 05/31/200209/05 Dyslipidemia, goal to be determined 08/25/2001 09/05/2009 Reflux esophagitis 5 PREMENSTRUAL TENSION 015 HTN, goal below 140/90 08/16 documented as of this encounter (statuses as of 11/01/2023) Immunizations Name Administration Dates Next Due Pneumococcal [...] Sign Reading Time Taken Comments Blood Pressure 140/82 11/01/2023 8:03 AM EDT Pulse 96 11/01/2023 8:03 AM EDT Temperature - - Respiratory Rate 24 11/01/2023 8:03 AM EDT Oxygen Saturation - - Inhaled Oxygen Concentration - - Weight - - Height - - Body Mass Index - - documented in this encounter Functional Status Functional [...] as of this encounter Progress Notes * Martin Ko DO - 11/01/2023 8:38 AM EDT SUBJECTIVE: Patient returns today for follow up of recent cardiac MRI demonstrating hypertrophic cardiomyopathy involving the basal septum, labile hypertension, severe concentric left ventricular hypertrophy, chronic left internal carotid artery occlusion, dyslipidemia, and palpitations. Admits to feeling quite anxious with frequent panic attacks associated with her multiple medical concerns. Assessing blood pressure in excess of 20 times per day. Notes labile readings with systolic blood pressure as high as 170 mmHg, down to 90 mmHg. Carvedilol reduced during most recent office visit due to borderline resting hypotension. Denies exertional chest pain or unusual shortness of breath. Unfortunately, continues to smoke cigarettes. Continues to report right lower quadrant abdominaldiscomfort which is unchanged for several months. Poor appetite unchanged. ECG: Sinus rhythm, baseline artifact, PVC Cardiac MRI report October 04, 2023: 1. Cardiac MRI findings of basal septal hypertrophic cardiomyopathy. 2. The maximal septal wall thickness is 18 mm with a septal to posterior wall ratio of 2.3. LV crypts are absent. No apical aneurysm present. There is no overt systolic anterior motion of the mitral valve. There appears to be aberrant papillary muscles. The anterior mitral leaflet is not elongated.The anterior mitral valve resembles that of a rheumatic mitral leaflet and may be restricted in opening. Mild mitral regurgitation is present. The ECV is normal measuring 24%. Atypical right ventricular insertion site enhancement noted in basal anterior and inferior septum on late gadolinium enhanced imaging. There is also atypical intermediate enhancement noted in all myocardial (diffusely yet more noticable in the areas of maximal myocardial thickness) on late gadolinium enhanced imaging. This corresponds to diffuse elevation of the [place] T1 parametric mapping times throughout the myocardium. This can be seen in cardiometabolic conditions such as uncontrolled hypertension, diabetes mellitus type II, ERSD, etc. Total scar as percent of total LV mass: 9%. 3. There is no myocardial infarction noted on late gadolinium enhanced imaging. All the myocardial segments are viable. 4. The right ventricle is normal in size with normal regional and global systolic function. The calculated RV ejection fraction is 60%. 5. The LV systolic function and size are normal. The calculated LV ejection fraction is 64%. 6. A small (<5 mm) circumferential pericardial effusion is noted. NM PYP whole-body imaging September 02, 2023: Grade 0. Not suggestive of TTR amyloidosis. 2D echocardiogram report May 06, 2023: Left ventricular cavity size is small The LV wall thickness is severely increased (concentric). There is hyperechogenicity of all piña, consider infiltrative process The left ventricular wall motion is normal. The qualitative LV ejection fraction is 60-64% (normal). The left ventricular diastolic function is mildly abnormal (grade I). The aortic valve is mildly calcified. Aortic stenosis is absent. Patient declined agitated saline contrast injection Compared to last available study changes are noted as follows: LV wall thickness has increased. 2D transthoracic echo report October 30, 2021: The qualitative LV ejection fraction is 65-69% (normal). The LV wall thickness is mildly increased (concentric). There is isolated basal septal hypertrophy with maximal thickness of 1.6 cm. There is no dynamic left ventricular outflow tract obstruction a rest. The inducible peak instantaneous left ventricular outflow tract gradient is 33 mm Hg. Mild aortic valve sclerosis is present. There is a possible patent foramen ovale. Zio monitor report June 02, 2023: Duration: 2 days, 19 hours Patient had a min HR of 55 bpm, max HR of 107 bpm, and avg HR of 78 bpm. Predominant underlying rhythm was Sinus Rhythm. Isolated SVEs were rare (<1.0%), SVE Triplets were rare (<1.0%), and no SVE Couplets were present. Isolated VEs were rare (<1.0%), VE Couplets were rare (<1.0%), and no VE Triplets were present. No symptoms reported. CT of the neck with contrast report July 26, 2022: 1. No suspicious neck mass or cervical lymphadenopathy. 2. 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 Extensive atherosclerotic changes in the neck with chronic occlusion of the left internal carotid artery. Neurosurgical consultation is recommended and dedicated CTA head/neck could be performed to evaluate the vessels in greater detail. 3. Other chronic findings in the neck, as discussed. CTA of the abdomen and pelvis report February 03, 2023: 1. No acute abnormality noted. 2. Asymmetric enlargement of the right ovary is again noted, otherwise not adequately evaluated with CT. A follow up ultrasound is suggested for further evaluation. 3. Stable dilated descending thoracic aorta measuring up to 3.8 cm. Stable mildly dilated distal abdominal aorta measuring up to 3.0 cm. Continued surveillance is suggested. 4. Other incidental findings as detailed above. ROS: All others negative other than those noted in the HPI. Patient Active Problem List Diagnosis Dyslipidemia, goal LDL below 100 Gastro-esophageal reflux Abnormal electrocardiogram Tobacco use disorder Essential hypertension with goal blood pressure less than 140/90 Agoraphobia with panic disorder COPD, severity to be determined (HCC) Loss of weight Anterior cerebral artery aneurysm H/O dysplastic nevus AAA (abdominal aortic aneurysm) (HCC) Adenocarcinoma of colon (HCC) Cancer of ascending colon (HCC) Severe anxiety with panic Protein-calorie malnutrition (HCC) Aneurysm of descending thoracic aorta without rupture (HCC) Moderate episode of recurrent major depressive disorder (HCC) Social History Tobacco Use Smoking status: Every [...] No current facility-administered medications for this visit. Lipid Panel Results: Results for orders placed or performed in visit on 02/06/19 LIPID PANEL Result Value Ref Range HOURS FASTING >8 HOURS hours Triglycerides 174 0 - 174 mg/dL Cholesterol 173 <200 mg/dL HDL Cholesterol 30 (L) >49 mg/dL NON-HDL CHOLESTEROL 143 0 - 159 mg/dL LDL Cholesterol 108 0 - 129 mg/dL Results for orders placed or performed in visit on 11/04/22 LIPID PANEL WITH DIRECT LDL IF TG IS HIGH Result Value Ref Range Triglycerides 129 <=174 mg/dL Cholesterol 137 <200 mg/dL HDL Cholesterol 36 (L) >49 mg/dL Non-HDL Cholesterol 101 <=159 mg/dL LDL Cholesterol 75 <=129 mg/dL Lab Results Component Value Date/Time TSH - [facility] 0.53 08/02/2022 12:23 PM TSH - [facility] 0.74 03/18/2022 11:59 AM TSH - [facility] 0.70 05/11/2005 11:13 AM TSH - [facility] 0.55 10/11/2003 09:44 AM TSH - [facility] 0.73 02/25/2003 10:52 AM CBC Results: Results for orders placed or performed in visit on 07/20/23 CBC Result Value Ref Range WBC 7.08 4.00 - 10.80 K/uL RBC 4.38 3.85 - 5.15 M/uL HGB 13.8 12.0 - 15.3 g/dL HCT 41.6 36.0 - 45.2 % MCV 95.0 81.5 - 97.5 fL MCH 31.5 27.0 - 34.0 pg MCHC 33.2 32.0 - 36.0 g/dL RDW 11.8 11.5 - 15.5 % PLT 205 140 - 400 K/uL MPV 10.7 6.6 - 11.1 fL nRBCs 0 <=0 /100 WBCs OBJECTIVE/PHYSICAL EXAMINATION: BP 140/82 | Pulse 96 | Resp 24 General: NAD, AAO x3, well nourished. HEENT: Normocephalic. Atraumatic. Conjunctiva pink, no scleral icterus. No carotid bruits, the carotid upstrokes are brisk. No JVD. No HJR Heart: Regular normal S-1 and S-2 no S-3 or S-4 gallop. No murmurs or rubs appreciated. PMI is not displaced. No RV heave.Lungs: Clear bilateral without rales , rhonchi, or wheeze. Abdomen: Normal bowel sounds. Soft. Nontender. No masses or organomegaly. No abdominal bruits. Extremities: No clubbing, cyanosis, or edema.Pulses: radial=2/4, Dorsalis pedis =2/4, posterior tibial=2/4. Neuro: No focal deficits. ASSESSMENT: 1. Severe concentric left ventricular hypertrophy with evidence of hypertrophic cardiomyopathy involving the base of the anteroseptum. 2. Chronic LICA occlusion 3. Dyslipidemia - borderline control, tolerating simvastatin (intolerance to atorvastatin documented) 4. 3.8cm descending thoracic aortic aneurysm, 3.0 cm abdominal aortic aneurysm. -followed by vascular surgery 5. 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 Adenocarcinoma of the colon status post colon resection. Lymph nodes negative for metastatic disease. 7. Ongoing tobacco abuse PLAN: Lipid panel with direct ldl if tg is high Vasc duplex carotid bilat Cardiology referral op Ekg I had a long discussion with the patient and her daughter regarding cardiac MRI results demonstrating hypertrophic cardiomyopathy of the basal anterior septum. Recommend genetic testing and further evaluation with a hypertrophic cardiomyopathy clinic in [place]. Patient declines genetic testing atthis time. Agreeable to proceed with consultation as recommended. Declines further invasive or noninvasive cardiac testing at this time due to significant anxiety/recurrent panic attacks. Continue current cardiovascular medications including low-dose aspirin, losartan, simvastatin, amlodipine, and carvedilol. Smoking cessation advised. All questions answered to satisfaction of both the patient and her daughter. Follow Up: Return in about 4 months (around 03/02/2024). I spent a total of 40-54 minutes (exact time 40 mins) on the date of service in preparation, delivery, and documentation of the care provided to Faith Chavis excluding any time spent in the performance of separately billed services. Martin Ko DO, [facility] Associate Cardiology - [facility] documented in this encounter Procedure Notes * Parish Dsouza MD - 11/01/2023 8:03 AM EDTAssociated Order(s): EKG REASON FOR STUDY: CP;CP CONCLUSIONS: Sinus rhythm with occasional Premature ventricular complexes Biatrial enlargement Septal infarct (cited on or before 03-Feb-2023) Abnormal ECG When compared with ECG of 02-Jun-2023 09:37, Premature ventricular complexes are now Present QT has lengthened Ventricular Rate: 90 Atrial Rate: 90 AR Interval: 154 QRS Duration: 78 QT/QTc: 388/474 ms P-R-T Elizabeth: 77 : 36 : 82 degrees documented in this encounter Nursing Notes * Karina Zapien LPN - 11/01/2023 8:02 AM EDT Examination Room: 10 Name: Faith Chavis Date of : 1950 Reason for Visit: Follow up Problems/Concerns: Pt presented SOB and c/o CP, starting last night Interim Hosp(s): denies Chest Pain/SOB: denies2 MyChart Discussed: ALREADY ACTIVE Patient was instructed to not get up on the exam table until directed and assisted by their provider; patient is to remain seated in the chair/ wheelchair/ exam table for fall prevention and safety reasons. Patient is aware staff will assist stepping down off exam table with personnel. documented in this encounter Plan of Treatment Upcoming Encounters Date Type Department Care Team (Late st Contact Info) Description 11/08/2023 8:00 AM EDT Imaging Vascular Lab, [facility] 2nd [facility] [address] [place] [address] 11/14/2023 9:00 AM EDT Laboratory Laboratory, [facility] [address] [place] [phone] [facility] [address] [place] [address] 11/14/2023 9:15 AM EDT Imaging Radiology [facility] 1st [facility] [address] [place] [address] 11/23/2023 10:30 AM EDT Office Visit Hematology/Oncology [facility] [address] [place] [phone] Yosvany Moe MD [address] [place] [address] 03/07/2024 8:30 AM EDT Office Visit Cardiology, [facility] [address] [place] [address] Martin Ko DO [address] [place] [address] 05/03/2024 9:00 AM EST Office Visit [facility] [address] [place] [phone] Adriel Whitaker MD [address] [place] [address] Scheduled Orders Name Type Priority Associated Diagnoses Orde r Schedule LIPID PANEL WITH DIRECT LDL IF TG IS HIGH Lab Routine LVH (left ventricular hypertrophy) Essential hypertension with goal blood pressure less than 130/80 Expected: 11/08/2023 (Approximate), Expires: 10/31/2024 [facility] DUPLEX CAROTID BILAT Medical Imaging Routine Asymptomatic stenosis of left carotid artery Expected: 11/02/2023, Expires: 11/30/2024 Scheduled Procedures Name Priority Associated Diagnoses Date/Ti me COLONOSCOPY FLEXIBLE PROXIMAL DIAGNOSTIC Abdominal pain, generalized Abdominal pain, epigastric Loss of weight ESOPHAGOGASTRODUODENOSCOPY ( EGD), FLEXIBLE, TRANSORAL, DIAGNOSTIC Recall Abdominal pain, generalized Abdominal pain, epigastric Loss of weight COLONOSCOPY FLEXIBLE PROXIMAL DIAGNOSTIC Recall Abdominal pain, generalized Abdominal pain, epigastric Loss of weight Scheduled Referrals Name Type Priority Associated Diagnoses Orde r Schedule CARDIOLOGY REFERRAL OP Referral Within 10 days (routine) Hypertrophic cardiomyopathy (HCC) Ordered: 11/01/2023 Health Maintenance Due Date Last Done Comments DISCUSS TOBACCO CESSATION (REFER TO SMARTSET #[id number]) 1950 Alpha-1 Antitrypsin 1970 Hepatitis C Screening [...] Procedure Name Priority Date/Time Associated Diagnosis Comments AR ECG ROUTINE ECG W/LEAST 12 LDS TRCG ONLY W/O I&R Routine 11/01/2023 8:03 AM EDT LVH (left ventricular hypertrophy) documented in this encounter Results * EKG (11/01/2023 8:03 AM EDT) 11/01/2023 8:03 AM EDT Narrative Procedure Note Parish Dsouza MD - 11/01/2023 8:03 AM EDT REASON FOR STUDY: CP;CP CONCLUSIONS: Sinus rhythm with occasional Premature ventricular complexes Biatrial enlargement Septal infarct (cited on or before 03-Feb-2023) Abnormal ECG When compared with ECG of 02-Jun-2023 09:37, Premature ventricular complexes are now Present QT has lengthened Ventricular Rate: 90 Atrial Rate: 90 AR Interval: 154 QRS Duration: 78 QT/QTc: 388/474 ms P-R-T Elizabeth: 77 : 36 : 82 degrees Martin Ko DO EKG [facility] documented in this encounter Visit Diagnoses Diagnosis Hypertrophic cardiomyopathy (HCC)- Primary Other hypertrophic cardiomyopathy LVH (left ventricular hypertrophy) Cardiomegaly Essential hypertension with goal blood pressure less than 130/80 Asymptomatic stenosis of left carotid artery documented in this encounter Advance Directives * Full Code (Latest Code Status on File) Date Activated Date Inactivated Comments 11/08/2022 11:27 AM 11/11/2022 4:51 PM Question Answer Comments Discussion of Advance Directives occurred with: Patient Care Teams Digital Design Engineer Relationship Specialty Start Date End Date Adriel Whitaker MD [address] [place] [id number] PCP - General Family Medicine 10/20/17 documented as of this encounter"
--- OUTSIDE RECORDS SUMMARY | 2023-12-25 07:57 | External Medical Summary | Summary of Care ---
Author Name Unknown Organization [facility] Address [address] [place] [address] Phone [phone] Care Team Providers Care Concrete Finisher Apprentice Name Role Phone Adriel Whitaker MD Primary Care Provider +1- [phone] Reason for Visit * Reason Onset Date Comments Appointment 09/24/2023 Encounter Details Date Type Department Care Team (Late st Contact Info) Description 09/24/2023 Telephone Rad[address] [address] Blanka Plummer, RT (M) Appointment Allergies Active Allergy Reactions Criticality Noted Date Comments Amoxicillin-Pot Clavulanate Abdominal pain 06/30/2022 Cisapride 11/05/1998 diarrhea Doxycycline 11/05/1998 diarrhea Macrolides And Ketolides 05/17/2000 zithromax, diarrhea Salicylates 11/05/1998 intol documented as of this encounter (statuses as of 09/24/2023) Medications Medication Sig Dispensed Refills Start Date [...] (Tylenol) every 24 hours. 30 Tablet 0 11/10/2022 Active Albuterol Sulfate HFA 108 (90 Base) MCG/ACT Inhalation Aerosol Solution 0 01/12/2023 Active Simvastatin 20 MG Oral Tablet [...] as needed for Anxiety. 90 Tablet 0 09/20/2023 Active documented as of this encounter (statuses as of 09/24/2023) Active Problems Problem Noted Date Diagnosed Date [...] as of this encounter (statuses as of 09/24/2023) Resolved Problems Problem Noted Date Diagnosed Date [...] - treated with Protopic GENERALIZED ANXIETY DIS 02/25/200307/2014 HTN, goal below 140/90 05/31/200209/05 Dyslipidemia, goal to be determined 08/25/2001 09/05/2009 Reflux esophagitis 5 PREMENSTRUAL TENSION 015 HTN, goal below 140/90 08/16 documented as of this encounter (statuses as of 09/24/2023) Immunizations Name Administration Dates Next Due Pneumococcal [...] Answer Date Recorded PHQ-2 Score 0 03/31/2020 Sex and Gender Information Value Date Recorded [...] encounter Miscellaneous Notes * Telephone Encounter - Blanka Plummer RT (M) - 09/24/2023 8:52 AM EDT Name: Faith Carr Palmira Do you have any of the following: Pacemaker, stents, heart valves, aneurysm clips? No Have you ever worked with metal or have you ever gotten metal in your eyes? No Have you had a colonoscopy in the last 30 days? No On dialysis? No Do you have any dermals or body piercing's? No or ? Do you wear an insulin pump or diabetic monitor?No RT Chasidy (M) documented in this encounter Plan of Treatment Upcoming Encounters Date Type Department Care Team (Late st Contact Info) Description 10/04/2023 9:30 AM EDT Imaging Radiology [address] [facility] [place] [address] 10/11/2023 2:40 PM EDT Office Visit [facility] [address] [place] [address] Adriel Whitaker MD [address] [place] [address] 11/14/2023 9:00 AM EDT Laboratory Laboratory, [facility] [address] [facility] [place] [phone] [facility] [address] [place] [address] 11/14/2023 9:15 AM EDT Imaging Radiology [address] [facility] [place] [address] 11/23/2023 10:30 AM EDT Office Visit Hematology/Oncology [facility] [place] [address] [place] [phone] Yosvany Moe MD [address] [place] [address] 03/07/2024 8:30 AM EDT Office Visit Cardiology, [facility] [address] [facility] [place] [address] Martin Ko O, [address] [place] [address] Scheduled Procedures Name Priority Associated Diagnoses Date/Ti [...] Comments DISCUSS TOBACCO CESSATION (REFER TO SMARTSET #[id number]) 1950 Alpha-1 Antitrypsin 1970 Hepatitis C Screening 1970 Cologuard 1997 Fecal Occult Blood Test 1997 Sigmoidoscopy 1997 Lung Cancer Screening 2002 Zoster Vaccines (1 of 2) 2002 DXA Scan 12/25/2005 12/25/1998 Mammogram 02/11/2017 02/12/2016, 08/29/2012 Pneumococcal Vaccine: 65+ Years (3 of 3 - PPSV23 or PCV20) 03/08/2019 03/08/2018, 10/13/2006, 03/04/1994 COVID-19 Vaccine (3 - 2022- season) 2023 [...] Not on filedocumented as of this encounter Advance Directives Latest Code Status on File Code Status Date Activated Date Inactivated Comments Full Code 11/08/2022 11:27 AM 11/11/2022 4:51 PM Question Answer Comments Discussion of Advance Direct liam occurred with: Patient Care Teams Concrete Finisher Apprentice Relationship Specialty Start Date End Date Adriel Whitaker MD [address] [place] [address] PCP - General Family Medicine 10/20/17 documented as of this encounter
--- OUTSIDE RECORDS SUMMARY | 2023-12-25 07:57 | External Medical Summary | Summary of Care ---
Author Name Unknown Organization [facility] Address [address] [place] [address] Phone [phone] Care Team Providers Care Quantitative Researcher Name Role Phone Adriel Whitaker MD Primary Care Provider [phone]- [phone] Encounter Details Date Type Department Care Team (Late st Contact Info) Description 10/11/2023 Orders Only Outcomes Research Department [address] [place] [address] Jazmin Crockett CHRA MyCode Research Other*[id number] Allergies Active Allergy Reactions Criticality Noted Date Comments Amoxicillin-Pot Clavulanate Abdominal pain 06/30/2022 Cisapride 11/05/1998 diarrhea Doxycycline 11/05/1998 diarrhea Macrolides And Ketolides 05/17/2000 zithromax, diarrhea Salicylates 11/05/1998 intol documented as of this encounter (statuses as of 10/11/2023) Medications Medication Sig Dispensed Refills Start Date [...] needed for Anxiety. 90 Tablet 09/20/2023 Active documented as of this encounter (statuses as of 10/11/2023) Active Problems Problem Noted Date Diagnosed Date [...] as of this encounter (statuses as of 10/11/2023) Resolved Problems Problem Noted Date Diagnosed Date [...] treated with Protopic GENERALIZED ANXIETY DIS 02/25/2003 0807/2014 HTN, goal below 140/90 05/31/200209/05 Dyslipidemia, goal to be determined 08/25/2001 09/05/2009 Reflux esophagitis 5 PREMENSTRUAL TENSION 015 HTN, goal below 140/90 08/16 documented as of this encounter (statuses as of 10/11/2023) Immunizations Name Administration Dates Next Due Pneumococcal [...] Description 10/11/2023 2:40 PM EDT [facility] [address] [facility] [phone] Ad[facility] [address] [facility] [address] 11/14/2023 9:00 AM EDT Laboratory Laboratory, [facility] [address] [facility] [place] [phone] [facility] [address] [facility] [place] [address] 11/14/2023 9:15 AM EDT Imaging [facility] [address] [facility] [place] [address] 11/23/2023 10:30 AM EDT Office Visit Hematology/Oncology [facility] [address] [place] [phone] Yosvany Moe MD [address] [place] [address] 03/07/2024 8:30 AM EDT Office Visit [facility], [facility] [address] Martin Ko, DO [address] [facility] [place] [place] [address] Scheduled Orders Name Type Priority Associated Diagnoses Orde r Schedule MYCODE SUBSEQUENT ADULT Lab Routine MyCode Research Other*[id number] Every 6 Months for 2 Occurrences starting 10/11/2023 until 10/30/2024 Scheduled Procedures Name Priority Associated Diagnoses Date/Ti [...] Comments DISCUSS TOBACCO CESSATION (REFER TO SMARTSET #1056) 1950 Alpha-1 Antitrypsin 1970 Hepatitis C Screening 1970 Cologuard 1997 Fecal Occult Blood Test 1997 Sigmoidoscopy 1997 Lung Cancer Screening 2002 Zoster Vaccines (1 of 2) 2002 DXA Scan 12/25/2005 12/25/1998 Mammogram 02/11/2017 02/12/2016, 08/29/2012 Pneumococcal Vaccine: 65+ Years (3 of 3 - PPSV23 or PCV20) 03/08/2019 03/08/2018, 10/13/2006, 03/04/1994 COVID-19 Vaccine (3 - season) 2023 07/22/2020, [...] as of this encounter Visit Diagnoses Diagnosis MyCode Research Other*[id number] documented in this encounter Advance Directives * Full Code (Latest Code Status on File) Date Activated Date Inactivated Comments 11/08/2022 11:27 AM 11/11/2022 4:51 PM Question Answer Comments Discussion of Advance Directives occurred with: Patient Care Teams Quantitative Researcher Relationship Specialty Start Date End Date Adriel Whitaker MD [address] [place] [address] PCP - General Family Medicine 10/20/17 documented as of this encounter
--- OUTSIDE RECORDS SUMMARY | 2023-12-25 07:57 | External Medical Summary | Summary of Care ---
Author Name Unknown Organization [facility] Address [address] [place] [address] Phone [phone] Care Team Providers Care Fine Patcher Name Role Phone Adriel Whitaker MD Primary Care Provider [phone]- [phone] Reason for Visit * Reason Onset Date Comments Advice 06/30/2023 frequent urinati on since starting new med Medication Problem 06/30/2023 Encounter Details Date Type Department Care Team (Late st Contact Info) Description 06/30/2023 Telephone Cardiology, [facility] [address] [place] [address] Martin Ko O, DO [address] [place] [address] Advice (frequent urination since starting ... Allergies Active Allergy Reactions Criticality Noted Date Comments Amoxicillin-Pot Clavulanate Abdominal pain 06/30/2022 Cisapride 11/05/1998 diarrhea Doxycycline 11/05/1998 diarrhea Macrolides And Ketolides 05/17/2000 zithromax, diarrhea Salicylates 11/05/1998 intol documented as of this encounter (statuses as of 09/29/2023) Medications Medication Sig Dispensed Refills Start Date End Date Status Famotidine 20 MG Oral Tablet (Pepcid) Take 1 Tablet by mouth in the morning and 1 Tablet before bedtime. 180 Tablet 1 3 Active Acetaminophen 500 MG Oral Tablet (Tylenol) 2 caps every 8 hours for 3 days, then 1 cap every 4 hours as needed for pain. Do not exceed 3000mg acetaminophen (Tylenol) every 24 hours. 30 Tablet 3 Active Albuterol Sulfate HFA 108 (90 Base) MCG/ACT Inhalation Aerosol Solution 3 Active Simvastatin 20 MG Oral Tablet (Zocor)Indicatio ns:Dyslipidemia, goal LDL below 100 take 1 tablet by mouth at bedtime 90 Tablet 1 3 Active Aspirin 81 MG Oral Tablet Chewable Take 1 Tablet by mouth in the morning. 34 Tablet 11 3 Active Losartan Potassium 100 MG Oral Tablet (Cozaar) Take 1 Tablet by mouth in the morning. 90 Tablet 3 3 Active Pantoprazole Sodium 40 MG Oral Tablet Delayed Release (Protonix)Indica tions:Abdominal pain, epigastric Take 1 tab twice daily for 4 weeks then take 1 tab daily. 60 Tablet 5 4 Active Additional Information Patient not taking.Reported on 08/11/2023 Ibuprofen 800 MG Oral Tablet (Motrin) Take 1 Tablet by mouth every 8 hours as needed. 3 024 Discontinued(En d of Procedure) amLODIPine Besylate 5 MG Oral Tablet (Norvasc)Indicat ions:Hypertensio n goal BP (blood pressure) < 140/90 Take 1 Tablet by mouth in the morning. 30 Tablet 5 3 024 Discontinued traZODone HCl 100 MG Oral Tablet (Desyrel) Take 1 Tablet by mouth at bedtime. 90 Tablet 3 024 Discontinued(Re fill) ALPRAZolam 0.25 MG Oral Tablet (xaNAX)Indicatio ns:Agoraphobia with panic disorder,Severe anxiety with panic,Controlled substance agreement signed,Anxiety Take 1 Tablet by mouth 3 times a day as needed for Anxiety. 90 Tablet 4 024 Discontinued(Re fill) Amoxicillin 875 MG Oral TabletIndication s:Acute non-recurrent frontal sinusitis Take 1 Tablet by mouth in the morning and 1 Tablet before bedtime. Do all this for 7 days. 14 Tablet 4 024 Discontinued(Me dication List Clean Up) Mirtazapine 15 MG Oral Tablet (Remeron)Indicat ions:Moderate protein-calorie malnutrition (HCC),Insomnia, unspecified type Take 1 Tablet by mouth at bedtime. 90 Tablet 3 4 024 Discontinued(Me dication List Clean Up) Carvedilol 25 MG Oral Tablet (Coreg)Indicatio ns:LVH (left ventricular hypertrophy),Ess ential hypertension with goal blood pressure less than 130/80 Take 1 Tablet by mouth in the morning and 1 Tablet before bedtime. 180 Tablet 3 4 024 Discontinued(Re fill) Carvedilol 25 MG Oral Tablet (Coreg)Indicatio ns:LVH (left ventricular hypertrophy),Ess ential hypertension with goal blood pressure less than 130/80 Take 0.5 Tablets by mouth in the morning and 0.5 Tablets before bedtime. 4 024 Discontinued(Me dication/Dose Changed) documented as of this encounter (statuses as of 09/29/2023) Active Problems Problem Noted Date Diagnosed Date [...] as of this encounter (statuses as of 09/29/2023) Resolved Problems Problem Noted Date Diagnosed Date [...] as of this encounter (statuses as of 09/29/2023) Immunizations Name Administration Dates Next Due Pneumococcal [...] Smokeless Tobacco: Never Comments:began at age 27 Alcohol Use Standard Drinks/Week Comments No 0 [...] encounter Miscellaneous Notes * Telephone Encounter - Alex Smith RN - 07/01/2023 12:02 PM EST Called and spoke to the patient and reviewed the message with her from Dr. oK. She stated sheunderstood. Med list updated. * Telephone Encounter - Martin Ko DO - 07/01/2023 9:36 AM EST Reduce carvedilol to 12.5 mg twice daily. Patient needs a follow-up appointment. She has not been seen in clinic since February. * Telephone Encounter - Alex Smith RN - 07/01/2023 8:32 AM EST Called and spoke to the patient and she stated that she is experiencing some side effects that she thinks is coming from the Coreg. She stated its almost like she has the flu. She is voiding a lot. She denies any burning or painful urination. She did say she has been drinking a lot of water. She also would like the results of the lab work that Dr. Ko had ordered for her. * Telephone Encounter - Bryanna Xavier OSA - 06/30/2023 9:37 AM EST Person calling: Patient Relationship to patient: Patient Number to return call: [phone] Reason for call: Calling to state that since starting the Croreg, she is experiencing frequent urination, feels "freezing cold" and nauseous. Requesting to speak to a nurse directly. Outcome: Attempted to call nurses station, no response. Pharmacy: N/A Provider Name: Dr. Martin Ko documented in this encounter Plan of Treatment Upcoming Encounters Date Type Department Care Team (Late st Contact Info) Description 10/04/2023 9:30 AM EDT Imaging Radiology [address] [place] [address] 10/11/2023 2:40 PM EDT Office Visit [facility] [address] [place] [address] Adriel Whitaker MD [address] [place] [address] 11/14/2023 9:00 AM EDT Laboratory Laboratory, [address] [place] [phone] [facility] [address] [facility] [place] [address] 11/14/2023 9:15 AM EDT Imaging Radiology [address] [facility] [place] [address] 11/23/2023 10:30 AM EDT Office Visit Hematology/Oncology [facility] [place] [address] [facility] [place], [place] [address] Yosvany Moe MD [address] [place] [address] 03/07/2024 8:30 AM EDT Office Visit Cardiology, [facility] [address] [facility] [place] [address] Martin Ko DO [address] [place] [address] Scheduled Procedures Name Priority Associated Diagnoses Date/Ti [...] Comments DISCUSS TOBACCO CESSATION (REFER TO SMARTSET #7695) 1950 Alpha-1 Antitrypsin 1970 Hepatitis C Screening [...] as of this encounter Visit Diagnoses Diagnosis LVH (left ventricular hypertrophy) Cardiomegaly Essential hypertension with goal blood pressure less than 130/80 documented in this encounter Advance Directives * Full Code (Latest Code Status on File) Date Activated Date Inactivated Comments 11/08/2022 11:27 AM 11/11/2022 4:51 PM Question Answer Comments Discussion of Advance Directives occurred with: Patient Care Teams Fine Patcher Relationship Specialty Start Date End Date Adriel Whitaker MD [address] [place] [address] PCP - General Family Medicine 10/20/17 documented as of this encounter
--- NOTE | 2023-12-25 08:14 | Emergency Department Note ---
Impression & Plan Weakness, Acute dehydration, Syncope, JEANA (acute kidney injury) ED Provider Note NAME: YA RIVERA AGE: 73 SEX: F : 1950 ARRIVES VIA: Walk-In INFORMANT: [Patient] ED PROVIDER(S): [John Orantes MD] CHIEF COMPLAINT: Syncope HISTORY OF PRESENT ILLNESS: The patient is a 73-year-old female who states that for the last 4 days, she has had diarrhea. No blood or black stool. She has been nauseated but there has been no vomiting. No fever. Today, she was walking and felt dizzy and lightheaded. She had a syncopal spell. She thinks she was unconscious for about 2 minutes. She injured her left elbow and complains of some left buttock pain. She did strike the left side of her head but does not currently have a headache. She noticed that her neck is somewhat stiff. No back pain. No lower extremity pain. The patient was able to ambulate with assistance after this syncopal spell. The patient thinks that she may need a tetanus booster. Patient did have some chest pain earlier before she fell, she thought it was reflux though and tried Rolaids. No chest pain presently. PMHx/PSHx/Social Hx: See Below PHYSICAL EXAM: GENERAL: Patient is in no acute distress. Thin and frail. HEENT: No acute trauma, normocephalic atraumatic, mucous membranes dry, no nasal congestion. NECK: No stridor, no adenopathy, mildly tender diffusely over the posterior C- spine, no step-off, trachea is midline. LUNGS: Clear to auscultation bilaterally, no wheeze, no rhonchi, breath sounds equal. Breath sounds diminished bilaterally. HEART: 2/6 systolic murmur, regular rate and rhythm. ABDOMEN: Soft, no abdominal distention or peritonitis. EXTREMITIES: No cyanosis, full range of motion of all the joints without pain or difficulty. She does have a 1 to 2 cm skin tear over the lateral aspect of the left elbow. No pain to move the left elbow joint, no left elbow joint effusion. NEUROLOGIC: Oriented x 3, no acute motor or sensory deficits, no focal weakness. SKIN: No jaundice, no diaphoresis. Back: Nontender thoracic or lumbar spine. DIFFERENTIAL DIAGNOSIS: Intracranial bleeding, cervical spine injury, dehydration, electrolyte imbalance, anemia, RI, dysrhythmia, among others. EMERGENCY DEPARTMENT PROCEDURES: MEDICAL DECISION MAKING: There is no leukocytosis or concerning anemia. There is a normal platelet count. There is evidence for some acute kidney injury/dehydration with a creatinine of 1.42. No concerning liver enzyme elevation. The patient appeared to be in a euthyroid state. ECG shows a sinus rhythm, no ischemia. Cardiac enzyme testing x 2 is not consistent with acute cardiac injury. Urinalysis does not show findings of infection. COVID, influenza and RSV test were negative. Chest x-ray does not show pneumonia or CHF. Pelvis film does not show pelvic or hip fracture. Brain CT showed no acute bleed or mass effect. C-spine CT showed no acute fracture. On exam, the patient seemed dehydrated. She complained of some lower abdominal pain but this is a chronic issue. The patient received IV saline, 1 L. She was given 500 cc of lactated Ringer's. She received IV Zofran for nausea, a second dose of Zofran was given IV. She was given IV morphine for her chronic lower abdominal pain. She received an Adacel booster for the left arm skin tear. The left arm skin tear was dressed. She was given IV Tylenol for additional pain control. Despite the IV hydration and care here in the ED, the patient still feels unwell and weak. She is afraid to go home. The patient will be hospitalized for further hydration, observation and care. I did speak with the patient and case management, the on-call hospitalist was consulted. I do believe dehydration is the primary issue for her trouble today. Prior/Outside records/notes reviewed: None ECG per my interpretation: Indication was syncope. The ECG shows a sinus rhythm with a PAC. The rate is 75. There is baseline artifact present. There are no PVCs, no acute ST elevation. There is an old anterior infarct. QTc is 451. Continuous Cardiac Monitoring per my interpretation: An order was placed for continuous cardiac monitoring. The monitor shows a rate of 90 with normal sinus rhythm. Imaging/x-ray results per my interpretation: Chest x-ray does not show mediastinal widening, pneumonia or pneumothorax. Pelvis film does not show pelvic or hip fracture. Chronic Medical/Social conditions affecting care: Advanced age. Care/Management discussed with: Case management, the on-call hospitalist. Level of care consideration(s): After review of the information above and other included data: --I believe the patient requires escalation of care to admission DISPOSITION: Admission Past Med/Surg History Problem List JEANA (acute kidney injury) (Acute) Syncope (Acute) Acute dehydration (Acute) Weakness (Acute) Acute dehydration (Acute) Weakness (Acute) Hypertensive crisis (Acute) Hyponatremia (Acute) Hypokalemia (Acute) Hypertension Recurrent falls (Acute) Anxiety GERD (gastroesophageal reflux disease) Dyslipidemia COPD (chronic obstructive pulmonary disease) Medical History AAA (abdominal aortic aneurysm) Surgical History S/P tubal ligation Family History Other Diabetes Social History Smoking Status: Current every day smoker Tobacco Type: Cigarettes packs per day: 0.5; Cigarettes Per Day: 10; Second Hand Exposure: No; Do You Dip or Chew Tobacco: No; Hx Alcohol Use: No Hx Substance Use: No Preferred Language: Romanian Communication Ability: Effective [employer] Required: No Beliefs That Will Affect Care: None Current Living Situation: Spouse Feels Safe at Home: Yes Assistive Devices: None Allergies Allergies Allergy/AdvReac Type Severity Reaction Status Date / Time amoxicillin [From Augmentin] AdvReac Intermediate ABD Verified 09/21/23 08:10 PAIN/VOMITING azithromycin [From Zithromax] AdvReac Intermediate Diarrhea Verified 09/21/23 08:10 clavulanic acid AdvReac Intermediate ABD Verified 09/21/23 08:10 [From Augmentin] PAIN/VOMITING doxycycline AdvReac Intermediate Diarrhea Verified 09/21/23 08:10 Macrolide Antibiotics AdvReac Intermediate Diarrhea Verified 09/21/23 08:10 salicylates AdvReac Intermediate INTOLERANCE Verified 09/21/23 08:10 Tetracyclines AdvReac Intermediate Diarrhea Verified 09/21/23 08:10 Home Meds Home Medications Medication Instructions Recorded Confirmed albuterol sulfate 90 mcg/actuation 2 puff inhalation Q6H PRN 08/23/22 12/25/23 aerosol inhaler Shortness Of Breath Or Wheezing pantoprazole 40 mg tablet,delayed 40 mg PO UD 11/23/22 12/25/23 release alprazolam 0.25 mg tablet 0.25 mg PO TID PRN anxiety 05/02/23 12/25/23 paroxetine HCl 12.5 mg 12.5 mg PO UD 05/02/23 12/25/23 tablet,extended release 24 hr trazodone 100 mg tablet 100 mg PO HS 05/02/23 12/25/23 amlodipine 5 mg tablet 5 mg PO QAM 07/07/23 12/25/23 mirtazapine 15 mg tablet 15 mg PO UD 07/07/23 12/25/23 aspirin 81 mg chewable tablet 81 mg PO QAM 09/21/23 12/25/23 carvedilol 3.125 mg tablet 3.125 mg PO BID 09/21/23 12/25/23 losartan 100 mg tablet 100 mg PO QAM 12/25/23 12/25/23 rosuvastatin 20 mg tablet 20 mg PO QAM 12/25/23 12/25/23 Results & Data (ED) Vital Signs Vital Signs - 24 hr 12/25/23 07:55 12/25/23 08:23 12/25/23 09:30 Temperature 36.7 C Temperature Source Temporal Artery Scan Pulse Rate 90 79 Pulse Rate [Finger] 68 Pulse Rhythm [Finger] Regular Pulse Strength [Finger] Normal Respiratory Rate 14 18 Respiratory Effort / Characteristics Non-Labored Respiratory Depth Normal Respiratory Pattern Regular Blood Pressure 117/76 Blood Pressure [Right Arm] 122/68 Blood Pressure Mean 89 Blood Pressure Mean [Right Arm] 86 Blood Pressure Position [Right Arm] Lying Pulse Oximetry 99 96 Oxygen Delivery Method Room Air Room Air Sepsis New/Unexplained Change in Mental Status No Sepsis Action Taken by Nursing No Action Required 12/25/23 09:57 12/25/23 11:32 12/25/23 11:33 Temperature Temperature Source Pulse Rate Pulse Rate [Finger] 72 75 Pulse Rhythm [Finger] Pulse Strength [Finger] Respiratory Rate 20 19 Respiratory Effort / Characteristics Non-Labored Spontaneous Non-Labored Spontaneous Respiratory Depth Normal Normal Respiratory Pattern Regular Regular Blood Pressure Blood Pressure [Right Arm] 171/75 H 158/86 H Blood Pressure Mean Blood Pressure Mean [Right Arm] 107 110 Blood Pressure Position [Right Arm] Pulse Oximetry 97 95 96 Oxygen Delivery Method Room Air Room Air Room Air Sepsis New/Unexplained Change in Mental Status Sepsis Action Taken by Nursing 12/25/23 14:00 Temperature Temperature Source Pulse Rate Pulse Rate [Finger] 59 L Pulse Rhythm [Finger] Pulse Strength [Finger] Respiratory Rate 19 Respiratory Effort / Characteristics Non-Labored Spontaneous Respiratory Depth Normal Respiratory Pattern Regular Blood Pressure Blood Pressure [Right Arm] 167/72 H Blood Pressure Mean Blood Pressure Mean [Right Arm] 103 Blood Pressure Position [Right Arm] Pulse Oximetry 94 Oxygen Delivery Method Room Air Sepsis New/Unexplained Change in Mental Status Sepsis Action Taken by Intermediate Medications Current Medication List: was personally reviewed by me Laboratory Data Attestation: I reviewed the patient's lab results. 12/25/23 08:15 12/25/23 08:15 Lab Results 12/25/23 12/25/23 12/25/23 Range/Units 08:15 08:42 09:40 WBC 10.31 (4.8-10.8) K/ul RBC 4.01 L (4.20-5.40) M/uL Hgb 12.7 (12.0-16.0) g/dl Hct 38.0 (37.0-47.0) % MCV 94.8 (80.0-100.0) fL MCH 31.7 (25.0-34.0) pg MCHC 33.4 (32.0-36.0) g/dL RDW Std Deviation 41.9 (36.4-46.3) fL RDW Coeff of Yamile 11.9 (11.5-14.5) % Plt Count 185 (130-400) K/uL MPV 9.9 (9.4-12.4) fL Immature Gran % (Auto) 0.2 % Neut % (Auto) 77.0 % Lymph % (Auto) 13.6 % Valencia % (Auto) 8.2 % Eos % (Auto) 0.5 % Baso % (Auto) 0.5 % Neut # (Auto) 7.94 H (1.40-6.50) K/uL Lymph # (Auto) 1.40 (1.20-3.40) K/uL Valencia # (Auto) 0.85 H (0.11-0.59) K/uL Eos # (Auto) 0.05 (0.00-0.50) K/uL Baso # (Auto) 0.05 (0.00-0.20) K/uL Immature Gran # (Auto) 0.02 (0.01-0.20) K/uL Sodium 137 (136-145) mmol/L Potassium 4.2 (3.5-5.1) mmol/L Chloride 102 (98-107) mmol/L Carbon Dioxide 30 (21-32) mmol/L Anion Gap 5 (3-11) BUN 34 H (6-23) mg/dl Creatinine 1.42 H (0.6-1.2) mg/dl Est Cr Clr Drug Dosing Not Reportable Est GFR ( Amer) 43.0 ml/min Est GFR (Non-Af Amer) 37.1 ml/min BUN/Creatinine Ratio 23.9 H (10-20) Glucose 92 (70-99(Fasting)) mg/dl Calcium 8.9 (8.6-10.3) mg/dl Magnesium 2.5 H (1.7-2.4) mg/dl Total Bilirubin 0.7 (0.2-1.0) mg/dl AST 14 (13-39) U/L ALT 11 (7-52) U/L Alkaline Phosphatase 48 (34-104) U/L Troponin I High Sens 10.2 (0-14) pg/ml Total Protein 6.4 (6.0-8.3) gm/dl Albumin 4.0 (3.4-5.0) gm/dl Globulin 2.4 L (2.5-4.0) gm/dl Albumin/Globulin Ratio 1.7 (0.9-2) TSH 0.702 (0.300-4.500) uIu/ml Urine Color Yellow Urine Appearance Clear (Clear) Urine pH 6.5 (4.5-7.5) Ur Specific Sanford 1.017 (1.000-1.030) Urine Protein 1+ H (Negative) Urine Glucose (UA) Negative (Negative) Urine Ketones Negative (Negative) Urine Blood Negative (Negative) Urine Nitrite Negative (Negative) Urine Bilirubin Negative (Negative) Urine Urobilinogen Negative (Negative) Ur Leukocyte Esterase Trace H (Negative) Urine WBC (Auto) 0-5 (0-5) /hpf Urine RBC (Auto) 0-2 (0-2) /hpf U Hyaline Cast (Auto) 3-5 H (0-2) /lpf U Epithel Cells (Auto) 0-2 (0-2) /hpf Urine Bacteria (Auto) None Seen (None Seen) SARS-CoV-2 (PCR) NEGATIVE (Negative) Influenza Type A (PCR) Negative (Neg) Influenza Type B (PCR) Negative (Neg) RSV (RT-PCR) Negative (Neg) 12/25/23 Range/Units 10:43 WBC (4.8-10.8) K/ul RBC (4.20-5.40) M/uL Hgb (12.0-16.0) g/dl Hct (37.0-47.0) % MCV (80.0-100.0) fL MCH (25.0-34.0) pg MCHC (32.0-36.0) g/dL RDW Std Deviation (36.4-46.3) fL RDW Coeff of Yamile (11.5-14.5) % Plt Count (130-400) K/uL MPV (9.4-12.4) fL Immature Gran % (Auto) % Neut % (Auto) % Lymph % (Auto) % Valencia % (Auto) % Eos % (Auto) % Baso % (Auto) % Neut # (Auto) (1.40-6.50) K/uL Lymph # (Auto) (1.20-3.40) K/uL Valencia # (Auto) (0.11-0.59) K/uL Eos # (Auto) (0.00-0.50) K/uL Baso # (Auto) (0.00-0.20) K/uL Immature Gran # (Auto) (0.01-0.20) K/uL Sodium (136-145) mmol/L Potassium (3.5-5.1) mmol/L Chloride (98-107) mmol/L Carbon Dioxide (21-32) mmol/L Anion Gap (3-11) BUN (6-23) mg/dl Creatinine (0.6-1.2) mg/dl Est Cr Clr Drug Dosing Est GFR ( Amer) ml/min Est GFR (Non-Af Amer) ml/min BUN/Creatinine Ratio (10-20) Glucose (70-99(Fasting)) mg/dl Calcium (8.6-10.3) mg/dl Magnesium (1.7-2.4) mg/dl Total Bilirubin (0.2-1.0) mg/dl AST (13-39) U/L ALT (7-52) U/L Alkaline Phosphatase (34-104) U/L Troponin I High Sens 10.8 (0-14) pg/ml Total Protein (6.0-8.3) gm/dl Albumin (3.4-5.0) gm/dl Globulin (2.5-4.0) gm/dl Albumin/Globulin Ratio (0.9-2) TSH (0.300-4.500) uIu/ml Urine Color Urine Appearance (Clear) Urine pH (4.5-7.5) Ur Specific Sanford (1.000-1.030) Urine Protein (Negative) Urine Glucose (UA) (Negative) Urine Ketones (Negative) Urine Blood (Negative) Urine Nitrite (Negative) Urine Bilirubin (Negative) Urine Urobilinogen (Negative) Ur Leukocyte Esterase (Negative) Urine WBC (Auto) (0-5) /hpf Urine RBC (Auto) (0-2) /hpf U Hyaline Cast (Auto) (0-2) /lpf U Epithel Cells (Auto) (0-2) /hpf Urine Bacteria (Auto) (None Seen) SARS-CoV-2 (PCR) (Negative) Influenza Type A (PCR) (Neg) Influenza Type B (PCR) (Neg) RSV (RT-PCR) (Neg) Administered Medications Lactated Ringer's (Lr) 1,000 mls @ 125 mls/hr IV .Q8H [facility] Stop: 12/26/23 04:59 Last Admin: 12/25/23 13:56 Dose: 125 mls/hr Documented By: ROSALBA Discontinued Medications Diphtheria/Pertussis/Tetanus Vacc (Diphther/Tetan/Pertus Vaccine (Tdap, Adol/Adult) 0.5ml) 0.5 ml IM .ONCE ONE Stop: 12/25/23 08:12 Last Admin: 12/25/23 08:34 Dose: 0.5 ml Documented By: JANELL Sodium Chloride (Nss) 500 mls @ 999 mls/hr IV .Q31M [facility] Stop: 12/25/23 08:45 Last Infusion: 12/25/23 09:00 Dose: Infused Documented By: Admin: 12/25/23 08:33 Dose: 999 mls/hr Documented By: JANELL Lactated Ringer's (Lr) 500 mls @ 999 mls/hr IV .Q31M ONE Stop: 12/25/23 09:39 Last Infusion: 12/25/23 10:33 Dose: Infused Documented By: Admin: 12/25/23 09:33 Dose: 999 mls/hr Documented By: JANELL Sodium Chloride (Nss) 500 mls @ 999 mls/hr IV .Q31M ONE Stop: 12/25/23 10:22 Last Infusion: 12/25/23 11:13 Dose: Infused Documented By: Admin: 12/25/23 10:34 Dose: 999 mls/hr Documented By: JANELL Acetaminophen (Ofirmev) 1,000 mg in 100 mls @ 400 mls/hr IV NOW STA Stop: 12/25/23 10:06 Last Infusion: 12/25/23 10:32 Dose: Infused Documented By: Admin: 12/25/23 09:59 Dose: 400 mls/hr Documented By: MEREDITH Morphine Sulfate (Morphine Sulfate 2 Mg/Ml Carp) 2 mg IV NOW STA Stop: 12/25/23 09:53 Last Admin: 12/25/23 09:59 Dose: 2 mg Documented By: MEREDITH Morphine Sulfate (Morphine Sulfate 2 Mg/Ml Carp) 2 mg IV NOW STA Stop: 12/25/23 11:17 Last Admin: 12/25/23 11:30 Dose: 2 mg Documented By: ROSALBA Ondansetron HCl (Ondansetron Inj 2 Mg/Ml 2 Ml Vial) 4 mg IV NOW STA Stop: 12/25/23 08:03 Last Admin: 12/25/23 08:34 Dose: 4 mg Documented By: JANELL Ondansetron HCl (Ondansetron Inj 2 Mg/Ml 2 Ml Vial) 4 mg IV NOW STA Stop: 12/25/23 11:17 Last Admin: 12/25/23 11:30 Dose: 4 mg Documented By: ROSALBA Imaging Data Radiologist's Impression: Chest X-Ray 12/25/23 08:02 XR chest 1V portable HISTORY: weakness COMPARISON: Chest 05/02/2023. FINDINGS: The lungs are clear. Cardiac silhouette is normal in size. No pleural effusions. No pneumothorax. IMPRESSION: No acute process. ACT 112: Negative or not required by law. Electronically signed by: Ajit Rod M.D. 12/25/2023 8:[address] 12/25/23 08:[address] DOSE: HISTORY: fall TECHNIQUE: Multiaxial CT images of the head were performed without the use of intravenous contrast. Automated exposure control was utilized for this study. A dose lowering technique was utilized adhering to the principles of ALARA. Comparison: Head CT 03/30/2023. Findings: The paranasal sinuses and mastoid air cells are clear. The calvarium and skull base are intact. There is no mass, hematoma, midline shift, acute infarct. White matter hypodensity is nonspecific but suggestive of microvascular ischemic change. The ventricles and sulci demonstrate are within normal limits. Impression: No significant change compared to the prior study. No acute intracranial abnormality. ACT 112: Negative or not required by law. Electronically signed by: Ajit Rod M.D. 12/25/2023 8:[address] 12/25/23 08:[address] DOSE: 1015.52 mGy.cm HISTORY: fall, pain TECHNIQUE: Multiaxial CT images of the cervical spine were performed and reformatted in the sagittal and coronal plane without the use of contrast. A dose lowering technique was utilized adhering to the principles of ALARA. COMPARISON: None. FINDINGS: No fractures.. Prevertebral soft tissues and the C1-C2 interval are intact. No pneumothorax. Extensive calcified plaque within the carotid arteries. Emphysema is noted. Moderate to severe facet degenerative changes most pronounced within the upper to mid cervical spine. There is 2 mm of anterolisthesis of C4 on C5. This is likely due to the long-standing degenerative change. Mild disc space narrowing at C4-C5 and C5-C6. Moderate disc space narrowing at C6-C7. IMPRESSION: No fractures within the cervical spine. ACT 112: Negative or not required by law. Electronically signed by: Ajit Rod M.D. 12/25/2023 9:01 AM Pelvis X-Ray 12/25/23 08:14 AP PELVIS ONE VIEW HISTORY: fall COMPARISON: None. FINDINGS: There is no fracture or dislocation. Soft tissues are unremarkable. No radiopaque foreign bodies. The sacrum is intact. Mild degenerative changes within the hips and sacroiliac joints. IMPRESSION: No fractures. ACT 112: Negative or not required by law. Electronically signed by: Ajit Rod M.D. 12/25/2023 8:40 AM Discharge Plan Visit Data Chief Complaint: Illness Stated Complaint: FALL, HYPOTENSION, WEAKNESS, DIFFICULTY WALKING ED Provider: John Orantes Discharge Problem: Weakness, Acute dehydration, Syncope, JEANA (acute kidney injury) Patient Disposition: Admitted As Inpatient Condition: Fair Forms Stand Alone Forms: My [facility] Prescriptions Prescriptions: No Action albuterol sulfate 90 mcg/actuation HFA aerosol inhaler 2 puff INHALATION Q6H PRN (Reason: Shortness Of Breath Or Wheezing) pantoprazole 40 mg tablet,delayed release (DR/EC) 40 mg PO UD Rx Instructions: 40 mg po qam month supply in july 2023, current prescription alprazolam 0.25 mg tablet 0.25 mg PO TID PRN (Reason: anxiety ) trazodone 100 mg tablet 100 mg PO HS paroxetine HCl 12.5 mg tablet extended release 24 hr 12.5 mg PO UD Rx Instructions: 12.5 mg po qam Last filled Oct 06 2023 90 day carvedilol 3.125 mg tablet 3.125 mg PO BID aspirin 81 mg Tablet,Chewable 81 mg PO QAM Rx Instructions: OTC unable to verify rosuvastatin 20 mg tablet 20 mg PO QAM losartan 100 mg tablet 100 mg PO QAM amlodipine 5 mg tablet 5 mg PO QAM mirtazapine 15 mg tablet 15 mg PO UD Rx Instructions: 15 mg po hs last filled September 24 Referrals Referrals: Adriel Whitaker MD [Primary Care Provider] - Discharge Problem: Syncope Qualifiers: Syncope type: unspecified Qualified Code(s): R55 - Syncope and collapse
[2023-12-25] MEDS: SODIUM CHLORIDE 0.9% 500 ML IV SCH (08:33)
[2023-12-25] MEDS: ONDANSETRON INJ 2 MG/ML 2 ML VIAL IV STA ×2 (08:34→11:30)
[2023-12-25] MEDS: DIPHTHER/TETAN/PERTUS Vaccine (Tdap, Adol/Adult) 0.5mL IM ONE (08:34)
--- NOTE | 2023-12-25 08:40 | XRay Report ---
XR chest 1V portable HISTORY: weakness COMPARISON: Chest 05/02/2023. FINDINGS: The lungs are clear. Cardiac silhouette is normal in size. No pleural effusions. No pneumot horax. IMPRESSION: No acute process. ACT 112: Negative or not required by law. Electronically signed by: Ajit Rod M.D. 12/25/2023 8:39 AM
--- NOTE | 2023-12-25 08:41 | XRay Report ---
AP PELVIS ONE VIEW HISTORY: fall COMPARISON: None. FINDINGS: There is no fracture or dislocation. Soft tissues are unremarkable. No radiopaque foreign b odies. The sacrum is intact. Mild degenerative changes within the hips and sacroiliac joints. IMPRESSION: No fractures. ACT 112: Negative or not required by law. Electronically signed by: Ajit Rod M.D. 12/25/2023 8:40 AM
[2023-12-25 08:47] LABS: Basophils # (auto) 0.05 K/uL (0.00-0.20); Basophils % (auto) 0.5 %; Eosinophils # (auto) 0.05 K/uL (0.00-0.50); Eosinophils % (auto) 0.5 %; Hemoglobin 12.7 g/dl (12.0-16.0); Immature Granulocytes # (auto) 0.02 K/uL (0.01-0.20); Immature Granulocytes % (auto) 0.2 %; Lymphocytes % (auto) 13.6 %; Mean Corpuscular Hemoglobin 31.7 pg (25.0-34.0); Mean Corpuscular Hgb Conc 33.4 g/dL (32.0-36.0); Mean Corpuscular Volume 94.8 fL (80.0-100.0); Mean Platelet Volume 9.9 fL (9.4-12.4); Monocytes # (auto) 0.85 K/uL (0.11-0.59); Monocytes % (auto) 8.2 %; Neutrophils # (auto) 7.94 K/uL (1.40-6.50); Platelet Count 185 K/uL (130-400); RDW Coefficient of Variation 11.9 % (11.5-14.5); RDW Standard Deviation 41.9 fL (36.4-46.3); Red Blood Count 4.01 M/uL (4.20-5.40); White Blood Count 10.31 K/ul (4.8-10.8)
--- NOTE | 2023-12-25 08:59 | CT Scan Report ---
HEAD CT NONCONTRAST CT DOSE: HISTORY: fall TECHNIQUE: Multiaxial CT images of the head were performed without the use of intravenous contrast. A utomated exposure control was utilized for this study. A dose lowering technique was utilized adheri ng to the principles of ALARA. Comparison: Head CT 03/30/2023. Findings: The paranasal sinuses and mastoid air cells are clear. The calvarium and skull base are int act. There is no mass, hematoma, midline shift, acute infarct. White matter hypodensity is nonspecifi c but suggestive of microvascular ischemic change. The ventricles and sulci demonstrate are within no rmal limits. Impression: No significant change compared to the prior study. No acute intracranial abnormality. ACT 112: Negative or not required by law. Electronically signed by: Ajit Rod M.D. 12/25/2023 8:56 AM
--- NOTE | 2023-12-25 09:03 | CT Scan Report ---
CERVICAL SPINE CT CT DOSE: 1015.52 mGy.cm HISTORY: fall, pain TECHNIQUE: Multiaxial CT images of the cervical spine were performed and reformatted in the sagittal and coronal plane without the use of contrast. A dose lowering technique was utilized adhering to th e principles of ALARA. COMPARISON: None. FINDINGS: No fractures.. Prevertebral soft tissues and the C1-C2 interval are intact. No pneumothorax . Extensive calcified plaque within the carotid arteries. Emphysema is noted. Moderate to severe face t degenerative changes most pronounced within the upper to mid cervical spine. There is 2 mm of anter olisthesis of C4 on C5. This is likely due to the long-standing degenerative change. Mild disc space narrowing at C4-C5 and C5-C6. Moderate disc space narrowing at C6-C7. IMPRESSION: No fractures within the cervical spine. ACT 112: Negative or not required by law. Electronically signed by: Ajit Rod M.D. 12/25/2023 9:01 AM
[2023-12-25 09:05] LABS: Alanine Aminotransferase 11 U/L (7-52); Albumin Globulin Ratio 1.7 (0.9-2); Alkaline Phosphatase 48 U/L (34-104); Anion Gap 5 (3-11); Aspartate Aminotransferase 14 U/L (13-39); BUN Creatinine Ratio 23.9 (10-20); Bilirubin,Total 0.7 mg/dl (0.2-1.0); Blood Urea Nitrogen 34 mg/dl (6-23); Calcium 8.9 mg/dl (8.6-10.3); Carbon Dioxide 30 mmol/L (21-32); Chloride 102 mmol/L (98-107); Est GFR (Non-African American) 37.1 ml/min; Globulin 2.4 gm/dl (2.5-4.0); Glucose 92 mg/dl (70-99(Fasting)); Magnesium 2.5 mg/dl (1.7-2.4); Potassium 4.2 mmol/L (3.5-5.1); Sodium 137 mmol/L (136-145); Total Protein 6.4 gm/dl (6.0-8.3)
[2023-12-25 09:12] LABS: Troponin I High Sensitivity 10.2 pg/ml (0-14)
[2023-12-25 09:21] LABS: Thyroid Stimulating Hormone 0.702 uIu/ml (0.300-4.500)
[2023-12-25] MEDS: LACTATED RINGER'S 500 ML IV ONE (09:33)
[2023-12-25 09:34] LABS: Influenza A virus by PCR Negative (Neg); Influenza B virus by PCR Negative (Neg); RSV by PCR Negative (Neg); SARS CoV2 RNA(COVID-19) Ceph NEGATIVE (Negative)
[2023-12-25] MEDS: MoRPHine SULFATE 2 MG/ML CARP IV STA ×2 (09:59→11:30)
[2023-12-25] MEDS: ACETAMINOPHEN 1,000 MG/100 ML VIAL IV STA (09:59)
[2023-12-25 10:08] LABS: Appearance Urine Clear (Clear); Bacteria Urine Automated None Seen (None Seen); Bilirubin Urine Negative (Negative); Blood Urine Negative (Negative); Color Urine Yellow; Epithelial Cell Urine Auto 0-2 /hpf (0-2); Glucose Urine UA Negative (Negative); Ketones Urine Negative (Negative); Leukocyte Esterase Urine Trace (Negative); Nitrite Urine Negative (Negative); Protein Urine 1+ (Negative); RBC Urine Automated 0-2 /hpf (0-2); Specific Gravity Urine 1.017 (1.000-1.030); Urobilinogen Urine Negative (Negative); WBC Urine Automated 0-5 /hpf (0-5); pH Urine 6.5 (4.5-7.5)
[2023-12-25] MEDS: SODIUM CHLORIDE 0.9% 500 ML IV ONE (10:34)
[2023-12-25] MEDS ORDERED: MoRPHine SULFATE 2 MG/ML CARP IV PRN (11:16)
--- NOTE | 2023-12-25 12:08 | Electrocardiogram Report ---
Test Reason : Blood Pressure : */* mmHG Vent. Rate : 75 BPM Atrial Rate : 75 BPM P-R Int : 168 ms QRS Dur : 72 ms QT Int : 404 ms P-R-T Axes : 64 6 65 degrees QTcB Int : 451 ms Sinus rhythm with occasional Premature ventricular complexes Left atrial enlargement Anterior infarct , age undetermined Abnormal ECG When compared with ECG of 21-Sep-2023 07:01, Premature ventricular complexes are now Present Criteria for Anterior infarct now present Confirmed by John Ward ([id number]) on 12/25/2023 12:08:24 PM Referred By: REFERRED SELF Confirmed By: John Ward
--- NOTE | 2023-12-25 12:38 | History & Physical Report ---
Date of Service December 25, 2023 Assessment & Plan (1) Acute dehydration: Plan Assessment Syncope likely 2/2 orthostasis Fall w/trauma to the head Dehydration -continue IV hydration -PT/OT -fall precautions -will likely require placement -regular diet Hypertension -PRN hydralazine -home meds when reconciled COPD? Anxiety Depression GERD Insomnia -home meds when reconciled Heparin DVT ppx History of Present Illness Primary Care Provider: Adriel Whitaker MD Patient presents after syncope. She states that she has a history of vertigo when she goes from sitting to standing, never syncopized before today. She hit her head today, but did not sustain any other major injuries. Denies current cp, headache, any other symptoms besides being hungry. She states her symptoms have been present since she underwent colon resection for colon cancer. PMH: patient states she "has always been healthy" SHx: colectomy 2/2 colon ca FHx: noncontrib Allergies Allergy/AdvReac Type Severity Reaction Status Date / Time amoxicillin [From Augmentin] AdvReac Intermediate ABD Verified 09/21/23 08:10 PAIN/VOMITING azithromycin [From Zithromax] AdvReac Intermediate Diarrhea Verified 09/21/23 08:10 clavulanic acid AdvReac Intermediate ABD Verified 09/21/23 08:10 [From Augmentin] PAIN/VOMITING doxycycline AdvReac Intermediate Diarrhea Verified 09/21/23 08:10 Macrolide Antibiotics AdvReac Intermediate Diarrhea Verified 09/21/23 08:10 salicylates AdvReac Intermediate INTOLERANCE Verified 09/21/23 08:10 Tetracyclines AdvReac Intermediate Diarrhea Verified 09/21/23 08:10 Home Medications Medication Instructions Recorded Confirmed Type albuterol sulfate 90 mcg/actuation 2 puff inhalation Q6H PRN 08/23/22 12/25/23 History aerosol inhaler Shortness Of Breath Or Wheezing pantoprazole 40 mg tablet,delayed 40 mg PO UD 11/23/22 12/25/23 History release alprazolam 0.25 mg tablet 0.25 mg PO TID PRN anxiety 05/02/23 12/25/23 History paroxetine HCl 12.5 mg 12.5 mg PO UD 05/02/23 12/25/23 History tablet,extended release 24 hr trazodone 100 mg tablet 100 mg PO HS 05/02/23 12/25/23 History amlodipine 5 mg tablet 5 mg PO QAM 07/07/23 12/25/23 History mirtazapine 15 mg tablet 15 mg PO UD 07/07/23 12/25/23 History aspirin 81 mg chewable tablet 81 mg PO QAM 09/21/23 12/25/23 History carvedilol 3.125 mg tablet 3.125 mg PO BID 09/21/23 12/25/23 History losartan 100 mg tablet 100 mg PO QAM 12/25/23 12/25/23 History rosuvastatin 20 mg tablet 20 mg PO QAM 12/25/23 12/25/23 History Past Med/Surg History Problem List (Updated 10/06/23 @ 00:06 by Delfina Briceno) Acute dehydration (Acute) Weakness (Acute) Hypertensive crisis (Acute) Hyponatremia (Acute) Hypokalemia (Acute) Hypertension Recurrent falls (Acute) Anxiety GERD (gastroesophageal reflux disease) Dyslipidemia COPD (chronic obstructive pulmonary disease) Medical History AAA (abdominal aortic aneurysm) Surgical History S/P tubal ligation Family History Other Diabetes Social History Smoking Status: Current every day smoker Tobacco Type: Cigarettes packs per day: 0.5; Cigarettes Per Day: 10; Second Hand Exposure: No; Do You Dip or Chew Tobacco: No; Hx Alcohol Use: No Hx Substance Use: No Preferred Language: Sami Communication Ability: Effective Cable Tower Operator Required: No Beliefs That Will Affect Care: None Current Living Situation: Spouse Feels Safe at Home: Yes Assistive Devices: None Review of Systems Constitutional: + fatigue and + weakness; no chills Respiratory: no cough, no dyspnea and no wheezing Cardiovascular: + syncope; no chest pain, no dyspnea on exertion and no palpitations Musculoskeletal: no problem reported Neurologic: + falls; no headache(s) Physical Exam Constitutional: + thin Respiratory: some mild wheezes Cardiovascular: RRR, no murmur, no edema Musculoskeletal: small area of trauma with pink pearly skin on the border between her L frontal and parietal scalp Neurologic: PERRL, EOMI, accommodation nl, no face palsy, no dysarthria Psychiatric: A+Ox3, euthymic affect Results & Data Results & Data Vital Signs (Past 12 Hours) Vital Signs Temp Pulse Pulse Resp BP BP Pulse Ox 12/25/23 11:33 96 12/25/23 11:32 75 19 158/86 H 95 12/25/23 09:57 72 20 171/75 H 97 12/25/23 09:30 68 18 122/68 96 12/25/23 08:23 79 12/25/23 07:55 36.7 C 90 14 117/76 99 O2 Del Method 12/25/23 11:33 Room Air 12/25/23 11:32 Room Air 12/25/23 09:57 Room Air 12/25/23 09:30 Room Air 12/25/23 08:23 12/25/23 07:55 Room Air Laboratory Results 12/25/23 12/25/23 12/25/23 10:43 09:40 08:42 WBC RBC Hgb Hct MCV MCH MCHC RDW Std Deviation RDW Coeff of Yamile Plt Count MPV Immature Gran % (Auto) Neut % (Auto) Lymph % (Auto) Glades % (Auto) Eos % (Auto) Baso % (Auto) Neut # (Auto) Lymph # (Auto) [place] # (Auto) Eos # (Auto) Baso # (Auto) Immature Gran # (Auto) Sodium Potassium Chloride Carbon Dioxide Anion Gap BUN Creatinine Est Cr Clr Drug Dosing Est GFR ( Amer) Est GFR (Non-Af Amer) BUN/Creatinine Ratio Glucose Calcium Magnesium Total Bilirubin AST ALT Alkaline Phosphatase Troponin I High Sens 10.8 Total Protein Albumin Globulin Albumin/Globulin Ratio TSH Urine Color Yellow Urine Appearance Clear Urine pH 6.5 Ur Specific [place] 1.017 Urine Protein 1+ H Urine Glucose (UA) Negative Urine Ketones Negative Urine Blood Negative Urine Nitrite Negative Urine Bilirubin Negative Urine Urobilinogen Negative Ur Leukocyte Esterase Trace H Urine WBC (Auto) 0-5 Urine RBC (Auto) 0-2 U Hyaline Cast (Auto) 3-5 H U Epithel Cells (Auto) 0-2 Urine Bacteria (Auto) None Seen SARS-CoV-2 (PCR) NEGATIVE Influenza Type A (PCR) Negative Influenza Type B (PCR) Negative RSV (RT-PCR) Negative 12/25/23 08:15 WBC 10.31 RBC 4.01 L Hgb 12.7 Hct 38.0 MCV 94.8 MCH 31.7 MCHC 33.4 RDW Std Deviation 41.9 RDW Coeff of Yamile 11.9 Plt Count 185 MPV 9.9 Immature Gran % (Auto) 0.2 Neut % (Auto) 77.0 Lymph % (Auto) 13.6 Glades % (Auto) 8.2 Eos % (Auto) 0.5 Baso % (Auto) 0.5 Neut # (Auto) 7.94 H Lymph # (Auto) 1.40 Glades # (Auto) 0.85 H Eos # (Auto) 0.05 Baso # (Auto) 0.05 Immature Gran # (Auto) 0.02 Sodium 137 Potassium 4.2 Chloride 102 Carbon Dioxide 30 Anion Gap 5 BUN 34 H Creatinine 1.42 H Est Cr Clr Drug Dosing Not Reportable Est GFR ( Amer) 43.0 Est GFR (Non-Af Amer) 37.1 BUN/Creatinine Ratio 23.9 H Glucose 92 Calcium 8.9 Magnesium 2.5 H Total Bilirubin 0.7 AST 14 ALT 11 Alkaline Phosphatase 48 Troponin I High Sens 10.2 Total Protein 6.4 Albumin 4.0 Globulin 2.4 L Albumin/Globulin Ratio 1.7 TSH 0.702 Urine Color Urine Appearance Urine pH Ur Specific [place] Urine Protein Urine Glucose (UA) Urine Ketones Urine Blood Urine Nitrite Urine Bilirubin Urine Urobilinogen Ur Leukocyte Esterase Urine WBC (Auto) Urine RBC (Auto) U Hyaline Cast (Auto) U Epithel Cells (Auto) Urine Bacteria (Auto) SARS-CoV-2 (PCR) Influenza Type A (PCR) Influenza Type B (PCR) RSV (RT-PCR) Diagnostic Findings Chest X-Ray 12/25/23 08:02 XR chest 1V portable HISTORY: weakness COMPARISON: Chest 05/02/2023. FINDINGS: The lungs are clear. Cardiac silhouette is normal in size. No pleural effusions. No pneumothorax. IMPRESSION: No acute process. ACT 112: Negative or not required by law. Electronically signed by: Ajit Rod M.D. 12/25/2023 8:[address] 12/25/23 08:[address] DOSE: HISTORY: fall TECHNIQUE: Multiaxial CT images of the head were performed without the use of intravenous contrast. Automated exposure control was utilized for this study. A dose lowering technique was utilized adhering to the principles of ALARA. Comparison: Head CT 03/30/2023. Findings: The paranasal sinuses and mastoid air cells are clear. The calvarium and skull base are intact. There is no mass, hematoma, midline shift, acute infarct. White matter hypodensity is nonspecific but suggestive of microvascular ischemic change. The ventricles and sulci demonstrate are within normal limits. Impression: No significant change compared to the prior study. No acute intracranial abnormality. ACT 112: Negative or not required by law. Electronically signed by: Ajit Rod M.D. 12/25/2023 8:[address] 12/25/23 08:[address] DOSE: 1015.52 mGy.cm HISTORY: fall, pain TECHNIQUE: Multiaxial CT images of the cervical spine were performed and reformatted in the sagittal and coronal plane without the use of contrast. A dose lowering technique was utilized adhering to the principles of ALARA. COMPARISON: None. FINDINGS: No fractures.. Prevertebral soft tissues and the C1-C2 interval are intact. No pneumothorax. Extensive calcified plaque within the carotid arteries. Emphysema is noted. Moderate to severe facet degenerative changes most pronounced within the upper to mid cervical spine. There is 2 mm of anterolisthesis of C4 on C5. This is likely due to the long-standing degenerative change. Mild disc space narrowing at C4-C5 and C5-C6. Moderate disc space narrowing at C6-C7. IMPRESSION: No fractures within the cervical spine. ACT 112: Negative or not required by law. Electronically signed by: Ajit Rod M.D. 12/25/2023 9:01 AM Pelvis X-Ray 12/25/23 08:14 AP PELVIS ONE VIEW HISTORY: fall COMPARISON: None. FINDINGS: There is no fracture or dislocation. Soft tissues are unremarkable. No radiopaque foreign bodies. The sacrum is intact. Mild degenerative changes within the hips and sacroiliac joints. IMPRESSION: No fractures. ACT 112: Negative or not required by law. Electronically signed by: Ajit Rod M.D. 12/25/2023 8:40 AM Code Status & VTE Plan Code Status FULL CODE for 3 days in an emergency.
[2023-12-25] MEDS: LACTATED RINGER'S 1,000 ML IV SCH (13:56)
[2023-12-25] MEDS ORDERED: ALBUTEROL HFA 8 GM INHALER INH PRN (15:18)
[2023-12-25] MEDS: MoRPHine SULFATE 2 MG/ML CARP IV PRN (16:01)
[2023-12-25] MEDS: carvediloL 3.125 MG TAB PO SCH (16:02)
[2023-12-25] MEDS ORDERED: Nursing to Pharmacy Communication SCH (18:00)
[2023-12-25] MEDS: MIRTAZAPINE TAB 15 MG TAB PO SCH (18:47)
[2023-12-25] MEDS: traZODone HCL 100 MG TAB PO SCH (18:47)
[2023-12-25] MEDS: HEPARIN SOD 5,000 UNIT/0.5 ML VIAL SQ SCH (20:22)
[2023-12-25] MEDS ORDERED: traZODone HCL 100 MG TAB PO SCH (21:00)
[2023-12-25] MEDS ORDERED: MIRTAZAPINE TAB 15 MG TAB PO SCH (21:00)
[2023-12-26 03:22] VITALS: TEMP 97.9
[2023-12-26] MEDS: ALPRAZolam 0.25 MG TABLET PO PRN (05:05)
[2023-12-26 08:34] LABS: Calcium 8.5 mg/dl (8.6-10.3); Creatinine Clr Calc Pharmacy 32.2 ml/min; Est GFR (African American) 50.6 ml/min; Est GFR (Non-African American) 43.7 ml/min
[2023-12-26] MEDS: ASPIRIN 81 MG CHEW PO SCH (08:48)
[2023-12-26] MEDS: amLODIPine BESYLATE 5 MG TAB PO SCH (08:48)
[2023-12-26] MEDS: ROSUVASTATIN CALCIUM 20 MG TAB PO SCH (08:49)
[2023-12-26] MEDS: PANTOprazole 40 MG TAB PO SCH (08:49)
[2023-12-26] MEDS: PARoxetine HCl CONTROLLED REL 12.5 MG TABCR PO SCH (08:49)
--- NOTE | 2023-12-26 10:13 | Discharge Summary ---
Discharge Summary Date of Service December 26, 2023 Principal Dx & Hospital Course #1 = Principal Diagnosis (1) JEANA (acute kidney injury): (2) Syncope: (3) Acute dehydration: Plan Patient presents to the emergency room after sustaining a fall at home. Noted to be somewhat dehydrated and hypotensive. Fall most likely due to syncopal event due to orthostasis. Patient was cared for in hospital. Her losartan was held due to acute kidney injury and low blood pressures. She is given fluid resuscitation. She had no further episodes of loose stools. By the following morning her symptoms had significantly improved. Her blood pressure improved. Her renal function improved. Her goal was to be discharged home. Coordinate outpatient follow-up with her PCP. May need to reconsider or adjust her antihypertensive medications. Encouraged to stay well-hydrated. Continue to hold the losartan. Follow-up with her PCP. Notes For Next Care Provider Consider rechecking basic metabolic profile in 10 to 14 days May need additional titration of antihypertensive medications. Medication Changes From Visit Losartan held due to acute kidney injury Admission HPI Per Admitting Provider Patient presents after syncope. She states that she has a history of vertigo when she goes from sitting to standing, never syncopized before today. She hit her head today, but did not sustain any other major injuries. Denies current cp, headache, any other symptoms besides being hungry. She states her symptoms have been present since she underwent colon resection for colon cancer. PMH: patient states she "has always been healthy" SHx: colectomy 2/ colon ca FHx: noncontrib Discharge Exam Constitutional: Alert HEENT: Mucous membranes moist., Small contusion left forehead Lungs: Clear to auscultation, decreased, no wheezes rales or rhonchi CV: S1-S2, regular, systolic murmur Abdomen: Soft, nontender, nondistended Extremities: No significant edema Neuro: No focal deficits Psych: Cooperative, normal mood Updated Medication List Medication Instructions Recorded Confirmed Type albuterol sulfate 90 mcg/actuation 2 puff inhalation Q6H PRN 08/23/22 12/25/23 History aerosol inhaler Shortness Of Breath Or Wheezing pantoprazole 40 mg tablet,delayed 40 mg PO UD 11/23/22 12/25/23 History release alprazolam 0.25 mg tablet 0.25 mg PO TID PRN anxiety 05/02/23 12/25/23 History paroxetine HCl 12.5 mg 12.5 mg PO UD 05/02/23 12/25/23 History tablet,extended release 24 hr trazodone 100 mg tablet 100 mg PO HS 05/02/23 12/25/23 History amlodipine 5 mg tablet 5 mg PO QAM 07/07/23 12/25/23 History mirtazapine 15 mg tablet 15 mg PO UD 07/07/23 12/25/23 History aspirin 81 mg chewable tablet 81 mg PO QAM 09/21/23 12/25/23 History carvedilol 3.125 mg tablet 3.125 mg PO BID 09/21/23 12/25/23 History losartan 100 mg tablet 100 mg PO QAM 12/25/23 12/25/23 History rosuvastatin 20 mg tablet 20 mg PO QAM 12/25/23 12/25/23 History Hospital Stay Data Consultations 12/25/23 12:19 ED Decision to Admit Stat Diagnostic Imagining Performed Reviewed imaging, laboratory and diagnostic studies. Pertinent findings as below. Creatinine 1.24, improved Troponins negative Imaging negative for acute findings/fractures 12/25/23 08:02 CT head/brain wo con Stat 12/25/23 08:11 CT cervical spine wo con Stat Pending Results Patient Have Any Pending Studies at Discharge: No Discharge Instructions Given to Patient (Per Discharging Provider) Continue to monitor blood pressure as outpatient Total Time Total Time Spent Total Time Spent (In Minutes): 26
[2023-12-26] MEDS: ACETAMINOPHEN 325 MG TAB PO PRN (11:14)
[2023-12-26 11:45] VITALS: PULSE 57; RESP 16; O2SAT 97
[2023-12-26 13:13] VITALS: BP 146/72
== END 2023-12-26 13:36 | disposition home or self-care (01) ==
LOC: SUATTDRO → ED 07:51 → 2W 07:51 → SUATTDRO 12:51 → 2W 15:01

== ENCOUNTER 2024-02-22 13:41 | Inpatient (IN) ==
[2024-02-22 14:18] LABS: Basophils # (auto) 0.02 K/uL (0.00-0.20); Basophils % (auto) 0.4 %; Eosinophils # (auto) 0.09 K/uL (0.00-0.50); Eosinophils % (auto) 1.6 %; Hematocrit (blood only) 38.2 % (37.0-47.0); Hemoglobin 13.1 g/dl (12.0-16.0); Immature Granulocytes # (auto) 0.01 K/uL (0.01-0.20); Immature Granulocytes % (auto) 0.2 %; Lymphocytes # (auto) 1.76 K/uL (1.20-3.40); Lymphocytes % (auto) 31.1 %; Mean Corpuscular Hemoglobin 31.3 pg (25.0-34.0); Mean Corpuscular Hgb Conc 34.3 g/dL (32.0-36.0); Mean Corpuscular Volume 91.4 fL (80.0-100.0); Mean Platelet Volume 10.2 fL (9.4-12.4); Monocytes # (auto) 0.59 K/uL (0.11-0.59); Monocytes % (auto) 10.4 %; Neutrophils # (auto) 3.19 K/uL (1.40-6.50); Neutrophils % (auto) 56.3 %; Platelet Count 172 K/uL (130-400); RDW Coefficient of Variation 11.7 % (11.5-14.5); RDW Standard Deviation 39.6 fL (36.4-46.3); Red Blood Count 4.18 M/uL (4.20-5.40); White Blood Count 5.66 K/ul (4.8-10.8)
[2024-02-22 14:38] LABS: Alanine Aminotransferase 17 U/L (7-52); Albumin Globulin Ratio 1.5 (0.9-2); Albumin Level 4.3 gm/dl (3.4-5.0); Alkaline Phosphatase 53 U/L (34-104); Anion Gap 7 (3-11); Aspartate Aminotransferase 20 U/L (13-39); Bilirubin,Total 0.3 mg/dl (0.2-1.0); Blood Urea Nitrogen 23 mg/dl (6-23); Calcium 8.9 mg/dl (8.6-10.3); Carbon Dioxide 31 mmol/L (21-32); Chloride 101 mmol/L (98-107); Creatinine Clr Calc Pharmacy 39.5 ml/min; Globulin 2.9 gm/dl (2.5-4.0); Glucose 86 mg/dl (70-99(Fasting)); Potassium 3.7 mmol/L (3.5-5.1); Sodium 139 mmol/L (136-145); Total Protein 7.2 gm/dl (6.0-8.3)
[2024-02-22 14:44] LABS: Troponin I High Sensitivity 10.1 pg/ml (0-14)
[2024-02-22 14:46] LABS: Partial Thromboplastin Ratio 0.9; Partial Thromboplastin Time 25 Seconds (21-31); Prothrombin Time 10.5 Seconds (9.0-12.0)
[2024-02-22 14:55] LABS: Influenza A virus by PCR Negative (Neg); Influenza B virus by PCR Negative (Neg); RSV by PCR Negative (Neg); SARS CoV2 RNA(COVID-19) Ceph POSITIVE (Negative)
[2024-02-22 14:58] LABS: Magnesium 2.2 mg/dl (1.7-2.4)
--- NOTE | 2024-02-22 14:59 | XRay Report ---
XR chest 1V not portable HISTORY: 73 years-old Female Chest pain, nonspecific COMPARISON: 12/25/2023 TECHNIQUE: AP view of the chest FINDINGS: Cardiac silhouette is normal. Atherosclerosis of the aorta. Chronic deformity of the distal right cla vicle. Spondylitic spurring of the spine. No pneumothorax, pleural effusion or airspace consolidation . IMPRESSION: No acute process. ACT 112: Negative or not required by law. The above report was generated using voice recognition software. It may contain grammatical, syntax o r spelling errors. Electronically signed by: Olu Villagran M.D. 02/22/2024 2:57 PM
--- NOTE | 2024-02-22 15:05 | Emergency Department Note ---
Impression & Plan COVID-19, COPD (chronic obstructive pulmonary disease), Generalized weakness ED Provider Note NAME: YA RIVERA AGE: 73 SEX: F : 1950 ARRIVES VIA: Walk-In INFORMANT: Patient ED PROVIDER(S): Demetrio Cabral MD CHIEF COMPLAINT: Shortness of breath. PLAN: Disposition: Admit MEDICAL DECISION MAKING: The patient is a pleasant 73-year-old woman with a past medical history of acid reflux, COPD, hyperlipidemia, chronic abdominal pain who presents to the emergency department via walk-in accompanied by family for evaluation of cough, congestion, shortness of breath, generalized bodyaches over the past several days. She reports having productive clear sputum. She reports epigastric abdominal pain which is unchanged from her chronic abdominal pain. She reports her blood pressure has been elevated. She admits that she has poor oral intake due to nausea but denies vomiting. She denies any diarrhea. On evaluation the patient is no distress, afebrile with blood pressure 200s/110s and vital signs otherwise stable. O2 saturation is 93% on room air. She has intermittent wheezes bilateral lung perkins with normal respiratory effort. She appears clinically dry. EKG without overt acute ischemia. CXR negative for acute cardiopulmonary process per my personal preliminary review/interpretation WBC, H/H and platelets within limits. Chemistry without metabolic acidosis. Electrolytes LFTs unremarkable. High-sensitivity troponin 10.1, within limits. COVID-19 PCR was positive. Treatment was initiated with hydration, back to dexamethasone for component of bronchospasm OPD very good with, IV APAP, famotidine, Zofran. However, upon reevaluation patient reported continued to feel unwell and weak and did agree with plan for admission for further management. Case was discussed with Hialey Grant, [facility] PAC, with [facility] hospitalist who will evaluate the patient for admission. Further management per admitting team. Triage Nursing notes reviewed and agree them. Prior/external medical records reviewed Vital Signs: reviewed Differential diagnosis: Reactive airway disease, pneumonia, pneumothorax, COPD, CHF, infections, cardiac ischemia, pulmonary embolism, musculoskeletal, gastrointestinal, as well as other pathologies. ER treatment provided: See below. Diagnostics interpreted by me: ECG: Normal sinus rhythm, 77 bpm, no ectopy, no overt ST elevation or depression, QTC 445 QRS 72. Cardiac Monitoring: An order for continuous cardiac monitoring was placed and demonstrated Normal sinus rhythm, 77 bpm, no ectopy, Laboratory studies: See below Imaging studies: See below Consultation(s): Case was discussed with Hailey Grant, [facility] PAC, with [facility] hospitalist who will evaluate the patient for admission. HPI: The patient is a pleasant 73-year-old woman with a past medical history of acid reflux, COPD, hyperlipidemia, chronic abdominal pain who presents to the emergency department via walk-in accompanied by family for evaluation of cough, congestion, shortness of breath, generalized bodyaches over the past several days. She reports having productive clear sputum. She reports epigastric abdominal pain which is unchanged from her chronic abdominal pain. She reports her blood pressure has been elevated. She admits that she has poor oral intake due to nausea but denies vomiting. She denies any diarrhea. ROS: See above HPI for pertinent positives & negatives. A total of 10 systems reviewed and were otherwise negative. VITALS:See Below PHYSICAL EXAMINATION: GENERAL: Awake, alert, fatigued-appearing, in no distress HENT: Normocephalic, atraumatic. Oropharynx with dry mucous membranes and otherwise unremarkable. EYES: Normal conjunctiva. Sclera non-icteric. NECK: Supple. No nuchal rigidity. FROM. No JVD. RESPIRATORY: Wheezes of bilateral lung perkins with normal respiratory effort. CARDIAC: Regular rate, normal rhythm. Extremities warm and well perfused. Pulses equal. ABDOMEN: Soft, non-distended. No tenderness to palpation. No rebound or guarding. No masses. MUSCULOSKELETAL: Chest examination reveals no tenderness. The back is symmetrical on inspection without obvious abnormality. There is no CVA tenderness to palpation. No joint edema. LOWER EXTREMITIES: Calves are equal size bilaterally and non-tender. No edema. No discoloration. NEURO: Normal sensorium. No sensory or motor deficits noted. SKIN: No rash or jaundice noted. Demetrio Cabral MD Past Med/Surg History Problem List (Updated 02/22/24 @ 23:43 by Demetrio Cabral MD) Generalized weakness (Acute) Arthralgia COVID-19 (Acute) Generalized weakness JEANA (acute kidney injury) (Acute) Syncope (Acute) Acute dehydration (Acute) Weakness (Acute) Hypertensive crisis (Acute) Hyponatremia (Acute) Hypokalemia (Acute) Hypertension Recurrent falls (Acute) Anxiety GERD (gastroesophageal reflux disease) Dyslipidemia COPD (chronic obstructive pulmonary disease) (Acute) Medical History Acute dehydration Weakness AAA (abdominal aortic aneurysm) Surgical History S/P tubal ligation Family History Other Diabetes Social History Smoking Status: Current every day smoker Tobacco Type: Cigarettes packs per day: 0.5; Cigarettes Per Day: 5; Second Hand Exposure: Yes; Do You Dip or Chew Tobacco: No; Tobacco Cessation Education Requested by Patient: No Hx Alcohol Use: No Hx Substance Use: No Preferred Language: Japanese Communication Ability: Effective Statistics Teacher Required: No Beliefs That Will Affect Care: None Current Living Situation: Spouse Current Living Situation Comment: [place] Other Information That Helps Us Care for You: No Feels Safe at Home: Yes Safety Concerns: Feels Safe At This Time Assistive Devices: Denture - Lower Allergies Allergies Allergy/AdvReac Type Severity Reaction Status Date / Time amoxicillin [From Augmentin] AdvReac Intermediate ABD Verified 02/22/24 16:30 PAIN/VOMITING azithromycin [From Zithromax] AdvReac Intermediate Diarrhea Verified 02/22/24 16:30 clavulanic acid AdvReac Intermediate ABD Verified 02/22/24 16:30 [From Augmentin] PAIN/VOMITING doxycycline AdvReac Intermediate Diarrhea Verified 02/22/24 16:30 Macrolide Antibiotics AdvReac Intermediate Diarrhea Verified 02/22/24 16:30 salicylates AdvReac Intermediate INTOLERANCE Verified 02/22/24 16:30 Tetracyclines AdvReac Intermediate Diarrhea Verified 02/22/24 16:30 Home Meds Home Medications Medication Instructions Recorded Confirmed albuterol sulfate 90 mcg/actuation 2 puff inhalation Q6H PRN 08/23/22 02/22/24 aerosol inhaler Shortness Of Breath Or Wheezing alprazolam 0.25 mg tablet 0.25 mg PO TID PRN anxiety 05/02/23 02/22/24 paroxetine HCl 12.5 mg 12.5 mg PO QAM 05/02/23 02/22/24 tablet,extended release 24 hr trazodone 100 mg tablet 100 mg PO HS 05/02/23 02/22/24 amlodipine 5 mg tablet 5 mg PO QAM 07/07/23 02/22/24 aspirin 81 mg chewable tablet 81 mg PO QAM 09/21/23 02/22/24 carvedilol 3.125 mg tablet 3.125 mg PO BID 09/21/23 02/22/24 rosuvastatin 20 mg tablet 20 mg PO HS 12/25/23 02/22/24 famotidine 20 mg tablet 20 mg PO DAILY 02/22/24 02/22/24 Results & Data (ED) Vital Signs Vital Signs - 24 hr 02/22/24 13:44 02/22/24 14:51 02/22/24 14:51 Temperature 36.7 C Temperature Source Skin Pulse Rate 77 70 Pulse Rate [Apical] Pulse Rate from SpO2 Sensor Pulse Rhythm Regular Respiratory Rate 18 19 Respiratory Effort / Characteristics Respiratory Depth Respiratory Pattern Blood Pressure 209/116 H Blood Pressure [Right Arm] Blood Pressure Mean 147 Blood Pressure Mean [Right Arm] Pulse Oximetry 93 98 98 Oxygen Delivery Method Room Air Room Air Room Air Sepsis Recent Fever Within 48 Hours No Sepsis New/Unexplained Change in Mental Status No Sepsis Action Taken by Nursing No Action Required 02/22/24 14:51 02/22/24 15:00 02/22/24 15:00 Temperature Temperature Source Pulse Rate Pulse Rate [Apical] 66 Pulse Rate from SpO2 Sensor Pulse Rhythm Respiratory Rate 22 Respiratory Effort / Characteristics Non-Labored Spontaneous Respiratory Depth Normal Respiratory Pattern Regular Blood Pressure 159/100 H 159/100 H Blood Pressure [Right Arm] 142/85 H Blood Pressure Mean 137 137 Blood Pressure Mean [Right Arm] 104 Pulse Oximetry 99 Oxygen Delivery Method Room Air Sepsis Recent Fever Within 48 Hours Sepsis New/Unexplained Change in Mental Status Sepsis Action Taken by Nursing 02/22/24 15:06 02/22/24 15:10 02/22/24 15:10 Temperature Temperature Source Pulse Rate 71 Pulse Rate [Apical] Pulse Rate from SpO2 Sensor 69 Pulse Rhythm Respiratory Rate 20 Respiratory Effort / Characteristics Respiratory Depth Respiratory Pattern Blood Pressure 155/82 H 155/82 H Blood Pressure [Right Arm] Blood Pressure Mean 112 112 Blood Pressure Mean [Right Arm] Pulse Oximetry 99 Oxygen Delivery Method Sepsis Recent Fever Within 48 Hours Sepsis New/Unexplained Change in Mental Status Sepsis Action Taken by Nursing 02/22/24 15:11 02/22/24 15:12 02/22/24 15:24 Temperature Temperature Source Pulse Rate 68 71 65 Pulse Rate [Apical] Pulse Rate from SpO2 Sensor 71 66 Pulse Rhythm Respiratory Rate 20 14 Respiratory Effort / Characteristics Respiratory Depth Respiratory Pattern Blood Pressure Blood Pressure [Right Arm] Blood Pressure Mean Blood Pressure Mean [Right Arm] Pulse Oximetry 99 100 Oxygen Delivery Method Sepsis Recent Fever Within 48 Hours Sepsis New/Unexplained Change in Mental Status Sepsis Action Taken by Nursing 02/22/24 15:30 02/22/24 15:30 02/22/24 15:42 Temperature Temperature Source Pulse Rate 66 67 Pulse Rate [Apical] Pulse Rate from SpO2 Sensor 66 66 Pulse Rhythm Respiratory Rate 23 27 H Respiratory Effort / Characteristics Respiratory Depth Respiratory Pattern Blood Pressure 185/90 H Blood Pressure [Right Arm] Blood Pressure Mean 120 Blood Pressure Mean [Right Arm] Pulse Oximetry 100 100 Oxygen Delivery Method Sepsis Recent Fever Within 48 Hours Sepsis New/Unexplained Change in Mental Status Sepsis Action Taken by Nursing 02/22/24 16:00 02/22/24 16:05 02/22/24 16:20 Temperature Temperature Source Pulse Rate 67 63 Pulse Rate [Apical] Pulse Rate from SpO2 Sensor 66 65 Pulse Rhythm Respiratory Rate 17 20 Respiratory Effort / Characteristics Respiratory Depth Respiratory Pattern Blood Pressure 167/87 H Blood Pressure [Right Arm] Blood Pressure Mean 122 Blood Pressure Mean [Right Arm] Pulse Oximetry 97 99 Oxygen Delivery Method Sepsis Recent Fever Within 48 Hours Sepsis New/Unexplained Change in Mental Status Sepsis Action Taken by Nursing 02/22/24 16:29 02/22/24 16:35 02/22/24 16:50 Temperature Temperature Source Pulse Rate 60 68 66 Pulse Rate [Apical] Pulse Rate from SpO2 Sensor 60 67 66 Pulse Rhythm Respiratory Rate 13 22 18 Respiratory Effort / Characteristics Respiratory Depth Respiratory Pattern Blood Pressure Blood Pressure [Right Arm] Blood Pressure Mean Blood Pressure Mean [Right Arm] Pulse Oximetry 99 97 100 Oxygen Delivery Method Sepsis Recent Fever Within 48 Hours Sepsis New/Unexplained Change in Mental Status Sepsis Action Taken by Nursing 02/22/24 16:56 02/22/24 17:11 02/22/24 17:20 Temperature Temperature Source Pulse Rate 67 69 63 Pulse Rate [Apical] Pulse Rate from SpO2 Sensor 67 70 62 Pulse Rhythm Respiratory Rate 19 17 26 H Respiratory Effort / Characteristics Respiratory Depth Respiratory Pattern Blood Pressure Blood Pressure [Right Arm] Blood Pressure Mean Blood Pressure Mean [Right Arm] Pulse Oximetry 100 98 99 Oxygen Delivery Method Sepsis Recent Fever Within 48 Hours Sepsis New/Unexplained Change in Mental Status Sepsis Action Taken by Nursing 02/22/24 17:23 Temperature Temperature Source Pulse Rate 68 Pulse Rate [Apical] Pulse Rate from SpO2 Sensor 68 Pulse Rhythm Respiratory Rate 22 Respiratory Effort / Characteristics Respiratory Depth Respiratory Pattern Blood Pressure Blood Pressure [Right Arm] Blood Pressure Mean Blood Pressure Mean [Right Arm] Pulse Oximetry 97 Oxygen Delivery Method Sepsis Recent Fever Within 48 Hours Sepsis New/Unexplained Change in Mental Status Sepsis Action Taken by Nursing Laboratory Data Attestation: I reviewed the patient's lab results. 02/22/24 13:59 02/22/24 13:59 Lab Results 02/22/24 Range/Units 13:59 WBC 5.66 (4.8-10.8) K/ul RBC 4.18 L (4.20-5.40) M/uL Hgb 13.1 (12.0-16.0) g/dl Hct 38.2 (37.0-47.0) % MCV 91.4 (80.0-100.0) fL MCH 31.3 (25.0-34.0) pg MCHC 34.3 (32.0-36.0) g/dL RDW Std Deviation 39.6 (36.4-46.3) fL RDW Coeff of Yamile 11.7 (11.5-14.5) % Plt Count 172 (130-400) K/uL MPV 10.2 (9.4-12.4) fL Immature Gran % (Auto) 0.2 % Neut % (Auto) 56.3 % Lymph % (Auto) 31.1 % Lander % (Auto) 10.4 % Eos % (Auto) 1.6 % Baso % (Auto) 0.4 % Neut # (Auto) 3.19 (1.40-6.50) K/uL Lymph # (Auto) 1.76 (1.20-3.40) K/uL Lander # (Auto) 0.59 (0.11-0.59) K/uL Eos # (Auto) 0.09 (0.00-0.50) K/uL Baso # (Auto) 0.02 (0.00-0.20) K/uL Immature Gran # (Auto) 0.01 (0.01-0.20) K/uL PT 10.5 (9.0-12.0) Seconds INR 1.0 (0.9-1.1) APTT 25 (21-31) Seconds PTT Ratio 0.9 Sodium 139 (136-145) mmol/L Potassium 3.7 (3.5-5.1) mmol/L Chloride 101 (98-107) mmol/L Carbon Dioxide 31 (21-32) mmol/L Anion Gap 7 (3-11) BUN 23 (6-23) mg/dl Creatinine 0.92 (0.6-1.2) mg/dl Est Cr Clr Drug Dosing 39.5 ml/min eGFR 66.57 BUN/Creatinine Ratio 25.0 H (10-20) Glucose 86 (70-99(Fasting)) mg/dl Calcium 8.9 (8.6-10.3) mg/dl Magnesium 2.2 (1.7-2.4) mg/dl Total Bilirubin 0.3 (0.2-1.0) mg/dl AST 20 (13-39) U/L ALT 17 (7-52) U/L Alkaline Phosphatase 53 (34-104) U/L Troponin I High Sens 10.1 (0-14) pg/ml C-Reactive Protein < 0.50 (0-0.5) mg/dl Total Protein 7.2 (6.0-8.3) gm/dl Albumin 4.3 (3.4-5.0) gm/dl Globulin 2.9 (2.5-4.0) gm/dl Albumin/Globulin Ratio 1.5 (0.9-2) SARS-CoV-2 (PCR) POSITIVE A (Negative) Influenza Type A (PCR) Negative (Neg) Influenza Type B (PCR) Negative (Neg) RSV (RT-PCR) Negative (Neg) Administered Medications Alprazolam (Alprazolam 0.25 Mg Tablet) 0.25 mg PO TID PRN PRN Reason: anxiety Stop: 03/23/24 20:22 Last Admin: 02/22/24 21:04 Dose: 0.25 mg Documented By: MED Guaifenesin (Guaifenesin 600 Mg Tabcr) 600 mg PO Q12 KEELY Stop: 03/23/24 20:59 Last Admin: 02/22/24 21:04 Dose: 600 mg Documented By: MED Heparin Sodium (Porcine) (Heparin Sod 5,000 Unit/0.5 Ml Vial) 5,000 units SQ Q12 KEELY Stop: 03/23/24 20:59 Last Admin: 02/22/24 21:03 Dose: 5,000 units Documented By: ZACHARY Rosuvastatin Calcium (Rosuvastatin Calcium 20 Mg Tab) 20 mg PO HS KEELY Stop: 03/23/24 20:59 Last Admin: 02/22/24 21:04 Dose: 20 mg Documented By: ZACHARY Trazodone HCl (Trazodone Hcl 100 Mg Tab) 100 mg PO [facility] Stop: 03/23/24 20:59 Last Admin: 02/22/24 21:05 Dose: 100 mg Documented By: ZACHARY Discontinued Medications Albuterol (Albuterol Hfa 8 Gm Inhaler) 2 puffs INH NOW ONE Stop: 02/22/24 15:44 Last Admin: 02/22/24 16:07 Dose: 2 puffs Documented By: HANNA Carvedilol (Carvedilol 3.125 Mg Tab) 3.125 mg PO NOW ONE Stop: 02/22/24 18:44 Last Admin: 02/22/24 21:04 Dose: 3.125 mg Documented By: ZACHARY Dexamethasone Sodium Phosphate (DexamethasonePf 10 Mg/Ml Vial) 10 mg IV NOW ONE Stop: 02/22/24 15:44 Last Admin: 02/22/24 16:07 Dose: 10 mg Documented By: HANNA Dicyclomine HCl (Dicyclomine Hcl 10 Mg/Ml 2 Ml Amp/Vial) 20 mg IM NOW ONE Stop: 02/22/24 17:08 Last Admin: 02/22/24 17:22 Dose: 20 mg Documented By: HANNA Hydralazine HCl (Hydralazine Hcl 20 Mg/Ml Vial) 5 mg IV NOW ONE Stop: 02/22/24 18:17 Last Admin: 02/22/24 18:22 Dose: 5 mg Documented By: HANNA Acetaminophen (Ofirmev) 1,000 mg in 100 mls @ 400 mls/hr IV NOW STA Stop: 02/22/24 15:20 Last Infusion: 02/22/24 16:02 Dose: Infused Documented By: Admin: 02/22/24 15:13 Dose: 400 mls/hr Documented By: HANNA Sodium Chloride (Nss) 500 mls @ 999 mls/hr IV .Q31M ONE Stop: 02/22/24 15:36 Last Infusion: 02/22/24 16:02 Dose: Infused Documented By: Admin: 02/22/24 15:14 Dose: 999 mls/hr Documented By: HANNA Famotidine (Pepcid 20mg Iv Push) 20 mg in 5 mls @ 2.5 mls/min IV NOW STA Stop: 02/22/24 15:07 Last Admin: 02/22/24 15:15 Dose: 2.5 mls/min Documented By: HANNA Ipratropium Stratton (Ipratropium Stratton Hfa Inhaler) 2 puffs INH NOW STA Stop: 02/22/24 15:44 Last Admin: 02/22/24 18:38 Dose: Not Given Documented By: HANNA Nicotine (Nicotine 7 Mg/24 Hr Tdsy) 1 patch TD ONE ONE Stop: 02/22/24 18:01 Last Admin: 02/22/24 18:22 Dose: 1 patch Documented By: HANNA Ondansetron HCl (Ondansetron Inj 2 Mg/Ml 2 Ml Vial) 4 mg IV NOW STA Stop: 02/22/24 15:07 Last Admin: 02/22/24 15:15 Dose: 4 mg Documented By: HANNA Oxycodone HCl (Oxycodone Hcl Ir 5 Mg Tab (Immediate Release)) 5 mg PO NOW STA Stop: 02/22/24 18:18 Last Admin: 02/22/24 18:23 Dose: 5 mg Documented By: HANNA Imaging Data Radiologist's Impression: Chest X-Ray 02/22/24 13:46 XR chest 1V not portable HISTORY: 73 years-old Female Chest pain, nonspecific COMPARISON: 12/25/2023 TECHNIQUE: AP view of the chest FINDINGS: Cardiac silhouette is normal. Atherosclerosis of the aorta. Chronic deformity of the distal right clavicle. Spondylitic spurring of the spine. No pneumothorax, pleural effusion or airspace consolidation. IMPRESSION: No acute process. ACT 112: Negative or not required by law. The above report was generated using voice recognition software. It may contain grammatical, syntax or spelling errors. Electronically signed by: Olu Villagran M.D. 02/22/2024 2:57 PM Discharge Plan Visit Data Chief Complaint: Hypertension Stated Complaint: SOB, HIGH BP ED Provider: Demetrio Cabral Discharge Problem: COVID-19, COPD (chronic obstructive pulmonary disease), Generalized weakness Patient Disposition: Admitted As Inpatient Discharge Instructions Interventions: ED Discharge Assessment Last Done: 02/22/24 19:30 Discharge Problem: COPD (chronic obstructive pulmonary disease) Qualifiers: COPD type: COPD with acute exacerbation Qualified Code(s): J44.1 - Chronic obstructive pulmonary disease with (acute) exacerbation
[2024-02-22] MEDS: ACETAMINOPHEN 1,000 MG/100 ML VIAL IV STA (15:13)
[2024-02-22] MEDS: SODIUM CHLORIDE 0.9% 500 ML IV ONE (15:14)
[2024-02-22] MEDS: FAMOTIDINE 20MG IV PUSH 20 MG/5 ML SYR IV STA (15:15)
[2024-02-22] MEDS: ONDANSETRON INJ 2 MG/ML 2 ML VIAL IV STA (15:15)
--- NOTE | 2024-02-22 15:20 | Electrocardiogram Report ---
Test Reason : Blood Pressure : */* mmHG Vent. Rate : 77 BPM Atrial Rate : 77 BPM P-R Int : 174 ms QRS Dur : 72 ms QT Int : 394 ms P-R-T Axes : 73 7 79 degrees QTcB Int : 445 ms Normal sinus rhythm Biatrial enlargement Possible Old Septal infarct (cited on or before 25-Dec-2023) Abnormal ECG When compared with ECG of 25-Dec-2023 08:18, Premature ventricular complexes are no longer Present Confirmed by John Ward ([id number]) on 02/22/2024 3:20:06 PM Referred By: Confirmed By: John Ward
[2024-02-22] MEDS: ALBUTEROL HFA 8 GM INHALER INH ONE (16:07)
[2024-02-22] MEDS: dexAMETHasone**PF** 10 MG/ML VIAL IV ONE (16:07)
[2024-02-22] MEDS: DICYCLOMINE HCL 10 MG/ML 2 ML AMP/VIAL IM ONE (17:22)
--- NOTE | 2024-02-22 17:23 | History & Physical Report ---
Date of Service February 22, 2024 Assessment & Plan (1) Generalized weakness: (2) COVID-19: (3) COPD (chronic obstructive pulmonary disease): (4) Arthralgia: Plan: Patient is 73 year old female with PMH HTN, dyslipidemia, anxiety, depression, GERD, COPD, AAA, presented to ER with c/o congestion and weakness x 3 days without increased cough and denies CP, SOB In ER pt afebrile, no hypoxia CXR: No infiltrate +COVID-19 PCR. Normal CRP In ER was given Tylenol IV, albuterol, dexamethasone 10 mg IV, 500 mL NSS Currently on exam patient without any wheezing. Does not have any increased cough or sputum production or shortness of breath. Currently no evidence COVID pneumonia, and does not appear to have COPD exacerbation Airborne isolation Supplemental oxygen prn Neb as needed Incentive spirometry, flutter valve Suspect generalized weakness, ambulatory dysfunction and arthralgias are secondary to underlying COVID-19 infection Fall precautions PT/OT eval CBC, BMP in am (5) Dyslipidemia: Plan: Continue rosuvastatin (6) GERD (gastroesophageal reflux disease): Plan: Continue famotidine (7) Anxiety: Plan: Continue paroxetine, Xanax prn DVT Prophylaxis Heparin SQ Admit med tele Full Code as per discussion with pt, however reports would not want prolonged mechanical ventilation if poor prognosis Follows with Dr Whitaker for routine care Pt was seen and care coordinated with Dr Longo. See addendum I spent a total of 70 minutes reviewing notes, outpatient records, labs, medication, coordinating, documenting and providing care for this patient excluding time spent in the performance of separately billed services. History of Present Illness Chief Complaint: weakness, cough, congestion Primary Care Provider: Adriel Whitaker MD Patient is 73 year old female with PMH HTN, dyslipidemia, anxiety, depression, GERD, COPD, AAA, presented to ER with c/o congestion and weakness x 3 days. Patient reports history smoking and COPD and reports chronic white productive cough. Denies any increased cough or sputum production. Feels like has some nasal and chest congestion but hasn't noticed wheezing. Denies chest tightness or chest pain. Reports sore throat, increased rhinorrhea. States has chronic abdominal pain and abdominal "spasms" to lower abdomen in which she takes Tylenol and Xanax. Has varying loose BMs and constipation at baseline. States had small BM today. She doesn't feel like her abdominal pain is any worse than her baseline. She previously was on PPI but not been taking for months but does take Pepcid daily. States chronically has no appetite and feels has had decreased oral intake past couple of days since becoming ill. She complains of generalized weakness and difficulty walking around and feels unsteady. Feels lightheaded with walking. Denies falls. She complains of pains moving all over her body. States will be in lower back then upper back and then her arms and then her legs. Just seems to be "jumping around" for past 3 days. States that her family friend helps with household tasks was sick with URI symptoms recently. Patient doesn't think has had COVID-19 infection before. Reports had initial two COVID-19 vaccines several years ago. Still smoking. She states took her BP at home and was elevated today. Denies neck stiffness, AVILA, fever/chills, diaphoresis, N/V, syncope, vision changes, neck pain, orthopnea, palpitations, hemoptysis, choking, otalgia, paresthesias, extremity edema, rashes, urinary symptoms. Allergies Allergy/AdvReac Type Severity Reaction Status Date / Time amoxicillin [From Augmentin] AdvReac Intermediate ABD Verified 02/22/24 16:30 PAIN/VOMITING azithromycin [From Zithromax] AdvReac Intermediate Diarrhea Verified 02/22/24 16:30 clavulanic acid AdvReac Intermediate ABD Verified 02/22/24 16:30 [From Augmentin] PAIN/VOMITING doxycycline AdvReac Intermediate Diarrhea Verified 02/22/24 16:30 Macrolide Antibiotics AdvReac Intermediate Diarrhea Verified 02/22/24 16:30 salicylates AdvReac Intermediate INTOLERANCE Verified 02/22/24 16:30 Tetracyclines AdvReac Intermediate Diarrhea Verified 02/22/24 16:30 Home Medications Medication Instructions Recorded Confirmed Type albuterol sulfate 90 mcg/actuation 2 puff inhalation Q6H PRN 08/23/22 02/22/24 History aerosol inhaler Shortness Of Breath Or Wheezing alprazolam 0.25 mg tablet 0.25 mg PO TID PRN anxiety 05/02/23 02/22/24 History paroxetine HCl 12.5 mg 12.5 mg PO QAM 05/02/23 02/22/24 History tablet,extended release 24 hr trazodone 100 mg tablet 100 mg PO HS 05/02/23 02/22/24 History amlodipine 5 mg tablet 5 mg PO QAM 07/07/23 02/22/24 History aspirin 81 mg chewable tablet 81 mg PO QAM 09/21/23 02/22/24 History carvedilol 3.125 mg tablet 3.125 mg PO BID 09/21/23 02/22/24 History rosuvastatin 20 mg tablet 20 mg PO HS 12/25/23 02/22/24 History famotidine 20 mg tablet 20 mg PO DAILY 02/22/24 02/22/24 History Past Med/Surg History Problem List (Updated 02/22/24 @ 23:43 by Demetrio Cabral MD) Generalized weakness (Acute) Arthralgia COVID-19 (Acute) Generalized weakness JEANA (acute kidney injury) (Acute) Syncope (Acute) Acute dehydration (Acute) Weakness (Acute) Hypertensive crisis (Acute) Hyponatremia (Acute) Hypokalemia (Acute) Hypertension Recurrent falls (Acute) Anxiety GERD (gastroesophageal reflux disease) Dyslipidemia COPD (chronic obstructive pulmonary disease) (Acute) Medical History Acute dehydration Weakness AAA (abdominal aortic aneurysm) Surgical History S/P tubal ligation Family History Other Diabetes Social History Smoking Status: Current every day smoker Tobacco Type: Cigarettes packs per day: 0.5; Cigarettes Per Day: 5; Second Hand Exposure: Yes; Do You Dip or Chew Tobacco: No; Tobacco Cessation Education Requested by Patient: No Hx Alcohol Use: No Hx Substance Use: No Preferred Language: Niuean Communication Ability: Effective Usability Architect Required: No Beliefs That Will Affect Care: None Current Living Situation: Spouse Current Living Situation Comment: [place] Other Information That Helps Us Care for You: No Feels Safe at Home: Yes Safety Concerns: Feels Safe At This Time Assistive Devices: Denture - Lower Review of Systems Review of Systems: All systems reviewed & are unremarkable except as noted in HPI & below Physical Exam Physical Exam: General: no distress, thin elderly female Head: normocephalic, atraumatic Eyes: conjunctiva non-injected, anicteric ENT: normal inspection external ears, nose, mucous membranes moist Neck: supple, trachea midline, non-tender Lungs: clear, no respiratory distress, no wheezing/rhonchi/rales at this time CV: RRR, + murmur, no pretibial edema Abd: normal BS, soft, non-tender to palpation, no CVA tenderness Ext: no cyanosis, no calf tenderness Neuro: A&O x 3, no focal deficits noted, somewhat anxious affect Skin: warm, dry Results & Data Results & Data Vital Signs (Past 12 Hours) Vital Signs Temp Pulse Pulse Resp BP BP Pulse Ox 02/22/24 17:11 69 17 98 02/22/24 16:56 67 19 100 02/22/24 16:50 66 18 100 02/22/24 16:35 68 22 97 02/22/24 16:29 60 13 99 02/22/24 16:20 63 20 99 02/22/24 16:05 67 17 97 02/22/24 16:00 167/87 H 02/22/24 15:42 67 27 H 100 02/22/24 15:30 66 23 100 02/22/24 15:30 185/90 H 02/22/24 15:24 65 14 100 02/22/24 15:12 71 20 99 02/22/24 15:11 68 02/22/24 15:10 155/82 H 02/22/24 15:10 155/82 H 02/22/24 15:06 71 20 99 02/22/24 15:00 159/100 H 02/22/24 15:00 159/100 H 02/22/24 14:51 66 22 142/85 H 99 02/22/24 14:51 70 19 98 02/22/24 14:51 98 02/22/24 13:44 36.7 C 77 18 209/116 H 93 O2 Del Method 02/22/24 17:11 02/22/24 16:56 02/22/24 16:50 02/22/24 16:35 02/22/24 16:29 02/22/24 16:20 02/22/24 16:05 02/22/24 16:00 02/22/24 15:42 02/22/24 15:30 02/22/24 15:30 02/22/24 15:24 02/22/24 15:12 02/22/24 15:11 02/22/24 15:10 02/22/24 15:10 02/22/24 15:06 02/22/24 15:00 02/22/24 15:00 02/22/24 14:51 Room Air 02/22/24 14:51 Room Air 02/22/24 14:51 Room Air 02/22/24 13:44 Room Air Laboratory Results Short CBC 02/22/24 Range/Units 13:59 WBC 5.66 (4.8-10.8) K/ul Hgb 13.1 (12.0-16.0) g/dl Hct 38.2 (37.0-47.0) % Plt Count 172 (130-400) K/uL BMP 02/22/24 13:59 Sodium 139 Potassium 3.7 Chloride 101 Carbon Dioxide 31 BUN 23 Creatinine 0.92 Glucose 86 Calcium 8.9 Liver Function 02/22/24 Range/Units 13:59 Total Bilirubin 0.3 (0.2-1.0) mg/dl AST 20 (13-39) U/L ALT 17 (7-52) U/L Alkaline Phosphatase 53 (34-104) U/L Albumin 4.3 (3.4-5.0) gm/dl Diagnostic Findings Chest X-Ray 02/22/24 13:46 XR chest 1V not portable HISTORY: 73 years-old Female Chest pain, nonspecific COMPARISON: 12/25/2023 TECHNIQUE: AP view of the chest FINDINGS: Cardiac silhouette is normal. Atherosclerosis of the aorta. Chronic deformity of the distal right clavicle. Spondylitic spurring of the spine. No pneumothorax, pleural effusion or airspace consolidation. IMPRESSION: No acute process. ACT 112: Negative or not required by law. The above report was generated using voice recognition software. It may contain grammatical, syntax or spelling errors. Electronically signed by: Olu Villagran M.D. 02/22/2024 2:57 PM ECG Additional Comments: sinus rhythm, rate 77 per my interpretation Supervising Physician Co-Signing Physician Notes 73-year-old lady with PMH of COPD, HLD, HTN, anxiety, depression, AAA, GERD presented to the ED with complaint of congestion and weakness for about 3 days. Patient continues to smoke about 4 to 5 cigarettes a day. Patient reported malaise, increased cough with clear sputum, progressive weakness and poor appetite, no fever and no diarrhea. Patient's last bowel movement was today morning. Labs reviewed, WNL, CRP negative. COVID-19 positive. Continue symptomatic management for COVID-19 pneumonia, patient has no shortness of breath or oxygen requirement, who will not use dexamethasone or remdesivir for now. Continue to monitor. Incentive spirometer. Labs in AM. PT/OT. Enhanced precaution. For Hypertensive urgency: likely 2/2 acute illness, c/w prn labetalol and prn hydralazine along w/ home meds. On exam: BP 165/77 at bedside exam GENERAL: Alert and oriented x3. NAD, on RA. Lean/thin/frail apprearing. HEENT: No pallor, no icterus. Pupils equal, round and reactive to light. Oral mucosa dry. NECK: No JVD, no neck masses. HEART: S1 and S2 heard. Regular rate and rhythm. + murmur, no gallop. RESPIRATORY SYSTEM: Normal AP diameter. No accessory muscle use. No wheezing, no crackles. b/l decreased breath sounds noted. ABDOMEN: Soft, bowel sounds present, nontender, no distention. CENTRAL NERVOUS SYSTEM: No facial droop. Speech is clear. Obeys simple commands. Moves extremities. EXTREMITIES: No edema, no erythema seen. I have seen and examined the patient and have discussed the case with the provider above. I agree with the assessment and plan as stated. Time spent: 30 min.
[2024-02-22] MEDS: NICOTINE 7 MG/24 HR TDSY TD ONE (18:22)
[2024-02-22] MEDS: hydrALAZINE HCL 20 MG/ML VIAL IV ONE (18:22)
[2024-02-22] MEDS: oxyCODONE HCL IR 5 MG TAB (IMMEDIATE RELEASE) PO STA (18:23)
[2024-02-22] MEDS: IPRATROPIUM BROMIDE HFA INHALER INH STA (18:38)
[2024-02-22 19:03] LABS: C Reactive Protein < 0.50 mg/dl (0-0.5)
[2024-02-22] MEDS ORDERED: LABETALOL HCL IV 5 MG/ML 20ML IV PRN (20:23)
[2024-02-22] MEDS ORDERED: MAGNESIUM HYDROXIDE SUSP 30 ML UDC PO PRN (20:23)
[2024-02-22] MEDS: HEPARIN SOD 5,000 UNIT/0.5 ML VIAL SQ SCH (21:03)
[2024-02-22] MEDS: carvediloL 3.125 MG TAB PO ONE (21:04)
[2024-02-22] MEDS: guaiFENesin 600 MG TABCR PO SCH (21:04)
[2024-02-22] MEDS: ALPRAZolam 0.25 MG TABLET PO PRN (21:04)
[2024-02-22] MEDS: ROSUVASTATIN CALCIUM 20 MG TAB PO SCH (21:04)
[2024-02-22] MEDS: traZODone HCL 100 MG TAB PO SCH (21:05)
--- OUTSIDE RECORDS SUMMARY | 2024-02-23 06:14 | External Medical Summary | Summary of Care ---
Author Name Unknown Organization [facility] Address [address] [place] [address] Phone [phone] Care Team Providers Care Filament Wound Parts Fabricator Name Role Phone Adriel Whitaker MD Primary Care Provider [phone]- [phone] Encounter Details Date Type Department Care Team (Late st Contact Info) Description 01/02/2024 Orders Only PATIENT PORTAL DO NOT DELETE THIS DEPT USED BY [place] GU[place] [id number] Allergies Active Allergy Reactions Criticality Noted Date Comments Cisapride 11/05/1998 diarrhea Doxycycline 11/05/1998 diarrhea Macrolides And Ketolides 05/17/2000 zithromax, diarrhea Salicylates 11/05/1998 intol documented as of this encounter (statuses as of 01/02/2024) Medications Medication Sig Dispensed Refills Start Date [...] the morning. 34 Tablet 11 03/02/2023 Active Pantoprazole Sodium 40 MG Oral Tablet Delayed Release (Protonix)Indicati ons:Abdominal pain, epigastric Take 1 tab twice daily for 4 weeks then take 1 tab daily. 60 Tablet 5 06/02/2023 Active Additional Information Patient not taking.Reported on 12/30/2023 PARoxetine HCl ER 12.5 MG Oral Tablet [...] Active Rosuvastatin Calcium 20 MG Oral Tablet (Crestor)Indicatio ns:Dyslipidemia, goal LDL below 100 Take 1 Tablet by mouth in the morning. 90 Tablet 3 11/23/2023 Active ALPRAZolam 0.25 MG Oral Tablet (xaNAX)Indications :Agoraphobia with panic disorder,Severe anxiety with panic,Controlled substance agreement signed,Anxiety Take 1 Tablet by mouth 3 times a day as needed for Anxiety. 90 Tablet 12/14/2023 Active documented as of this encounter (statuses as of 01/02/2024) Active Problems Problem Noted Date Diagnosed Date [...] as of this encounter (statuses as of 01/02/2024) Resolved Problems Problem Noted Date Diagnosed Date [...] as of this encounter (statuses as of 01/02/2024) Immunizations Name Administration Dates Next Due Pneumococcal [...] shopping? (15 years old or older) No 07/03/20 23 Cognitive Status Response Date of Assessm ent Because of a physical, menta l, or emotional condition, do you have serious difficulty concentrating, remembering, or making decisions? (5 years old or older) No 11/08/2022 documented as of this encounter Plan of Treatment Upcoming Encounters Date Type Department Care Team (Late st Contact Info) Description 03/07/2024 8:30 AM EDT Office Visit Cardiology, [facility] [address] [place] [address] Martin Ko DO [address] [place] [address] 04/03/2024 11:00 AM EST Office Visit Hematology/Oncology [facility] [address] [facility] [place] [phone] Yosvany Moe MD [address] [place] [address] 05/03/2024 9:00 AM EST Office Visit [facility] [address] [place] [phone] Adriel Whitaker MD [address] [place] [address] Scheduled Procedures Name Priority Associated Diagnoses Date/Ti [...] Comments DISCUSS TOBACCO CESSATION (REFER TO SMARTSET #6853) 1950 Alpha-1 Antitrypsin 1970 Hepatitis C Screening 1970 Cologuard 1997 Fecal Occult Blood Test 1997 Sigmoidoscopy 1997 Zoster Vaccines (1 of 2) 2002 DXA Scan 12/25/2005 12/25/1998 Mammogram 02/11/2017 02/12/2016, 08/29/2012 Adult Wellness Visit 2018 Pneumococcal Vaccine: 65+ Years (3 of 3 - PPSV23 or PCV20) 03/08/2019 03/08/2018, 10/13/2006, 03/04/1994 Depression Monitoring 03/31/2021 03/31/2020 COVID-19 Vaccine (4 - season) 2023 04/01/2021, 07/22/2020, 07/01/2020 DTaP,Tdap,and Td Vaccines (2 - Td or Tdap) 10/19/2023 10/18/2013, 05/09/1990, 05/09/1990 Influenza Vaccine (FLU shot) (#1) 2024 04/05/2023, 01/28/2022, 02/12/2021, Additional history exists GFR 11/20/2024 11/21/2023, 07/07, 04/05/2023, Additional history exists O2 ASSESSMENT COMPLETED IN PAST YEAR FOR COPD 2024 11/23/2023 Albumin/Creatinine Ratio 11/04/2025 11/04/2022, 0 10/2011 Lipid Panel 11/20/2028 11/21/2023, 10/08, 09/18/2021, [...] filedocumented as of this encounter Advance Directives * Full Code (Latest Code Status on File) Date Activated Date Inactivated Comments 11/08/2022 11:27 AM 11/11/2022 4:51 PM Question Answer Comments Discussion of Advance Directives occurred with: Patient Care Teams Filament Wound Parts Fabricator Relationship Specialty Start Date End Date Adriel Whitaker MD [address] [place] [id number] PCP - General Family Medicine 10/20/17 documented as of this encounter
--- OUTSIDE RECORDS SUMMARY | 2024-02-23 06:14 | External Medical Summary | Summary of Care ---
Author Name Unknown Organization [facility] Address [address] [place] [address] Phone [phone] Care Team Providers Care Fagoting Machine Operator Name Role Phone Adriel Whitaker MD Primary Care Provider [phone]- [phone] Reason for Visit * Reason Comments eRx-Medication Refill Encounter Details Date Type Department Care Team (Late st Contact Info) Description 01/23/2024 Refill [facility] [address] [place] [address] Adriel Whitaker MD [address] [place] [address] Agoraphobia with panic disorder; Severe anxiety with panic; Controlled substance agreement signed; Anxiety Allergies Active Allergy Reactions Criticality Noted Date Comments Cisapride 11/05/1998 diarrhea Doxycycline 11/05/1998 diarrhea Macrolides And Ketolides 05/17/2000 zithromax, diarrhea Salicylates 11/05/1998 intol documented as of this encounter (statuses as of 01/24/2024) Medications Medication Sig Dispensed Refills Start Date [...] as needed for Anxiety. 90 Tablet 12/14/2023 Discontinue d(Refill) documented as of this encounter (statuses as of 01/24/2024) Active Problems Problem Noted Date Diagnosed Date [...] as of this encounter (statuses as of 01/24/2024) Resolved Problems Problem Noted Date Diagnosed Date [...] as of this encounter (statuses as of 01/24/2024) Immunizations Name Administration Dates Next Due Pneumococcal Conjugate Vacc, 13 Valent (Prevnar) 03/08/2018 Pneumococcal Polysaccharide PPV23 (Pneumovax) 10/13/2006 Seasonal Influenza, PF, 6 M & above, IM , (FluLaval or Fluzone) 04/05/2023,02/12/2021,01/17/2020,02/08,02/06/2018 Seasonal Influenza, Quadriva lent Hd (Fluzone Hd) 01/28/2022 Seasonal Influenza, Quadriva lent, No Preserve, IM 02/17/2016,02/22/2015 Seasonal Influenza, Trivalen t, (IIV3), with Preserv, (Fluzone) 01/31/2014,03/08/2011,02/07/2010,03/11 TDAP (age 10 and older)(Boostrix) 10/18/2013 [...] encounter Miscellaneous Notes * Telephone Encounter - Hubert Hsieh [facility] - 01/24/2024 1:02 PM EDT Refused Prescriptions: Disp Refills ALPRAZolam 0.25 MG Oral Tablet (xaNAX) 90 Tab*0 Sig: TAKE 1 TABLET BY MOUTH THREE TIMES A DAY NEEDED FOR ANXIETYRefused By: HUBERT HSIEH for Refusal: Duplicate Request * Telephone Encounter - Hubert Hsieh [facility] - 01/24/2024 1:02 PM EDT Refused Prescriptions: Disp Refills ALPRAZolam 0.25 MG Oral Tablet (xaNAX) 90 Tab*0 Sig: TAKE 1 TABLET BY MOUTH THREE TIMES A DAY NEEDED FOR ANXIETY Refused By: HUBERT HSIEH Reason for Refusal: Duplicate Request * Telephone Encounter - Amada Bar [facility] - 01/23/2024 10:09 AM EDT Did you pend patient's preferred pharmacy and medication before forwarding?yes Pharmacy: [id number] [address] Pending Prescriptions: Disp Refills ALPRAZolam 0.25 MG Oral Tablet (xaNAX) [P*90 Tab*0 Sig: TAKE 1 TABLET BY MOUTH THREE TIMES A DAY NEEDED FOR ANXIETY Last Visit: 12/30/2023 (in office), Visit date not found (telemedicine) Next Visit: 05/03/2024 If no future appointments scheduled, and last appointment is greater than a year ago, please schedule patient for a follow-up appointment Last date the medication was ordered: 12/14/23 Is this request for a controlled substance?Yes, What was the last refill date 12/14/23 w/ quantity 90and dosage 0.25 and Urine Drug Screen was completed Urine [...] 12:23 PM TSH 0.70 05/11/2005 11:13 AM LDL 90 11/21/2023 08:18 AM LDL 109 03/17/2020 07:46 AM LDL 108 02/06/2019 07:48 AM ALT 23 11/21/2023 08:18 AM ALT 11 02/06/2019 07:48 AM documented in this encounter Plan of Treatment Upcoming Encounters Date Type Department Care Team (Late st Contact Info) Description 03/07/2024 8:30 AM EDT Office Visit Cardiology, [facility] [address] [place] [address] Martin Ko DO [address] [place] [address] 04/03/2024 11:00 AM EST Office Visit Hematology/Oncology [facility] [address] [facility] [place] [address] Yosvany Moe MD [address] [place] [address] 05/03/2024 9:00 AM EST Office Visit [facility] [address] [place] [address] Adriel Whitaker MD [address] [place] [address] Scheduled Procedures Name Priority Associated Diagnoses Date/Ti [...] Comments DISCUSS TOBACCO CESSATION (REFER TO SMARTSET #[id number]) 1952 Alpha-1 Antitrypsin 1970 Hepatitis C Screening 1970 Cologuard 1997 Fecal Occult Blood Test 1997 Sigmoidoscopy 1997 Zoster Vaccines (1 of 2) 2002 DXA Scan 12/25/2005 12/25/1998 Mammogram 02/11/2017 02/12/2016, 08/29/2012 Adult Wellness Visit 2018 Pneumococcal Vaccine: 65+ Years (3 of 3 - PPSV23 or PCV20) 03/08/2019 03/08/2018, 10/13/2006, 03/04/1994 Depression Monitoring 03/31/2021 03/31/2020 DTap/Tdap Vaccines (2 - Td or Tdap) 10/19/2023 10/18/2013, 05/09/1990, 05/09/1990 COVID-19 Vaccine ( season) 2024 04/01/2021, 07/22/2020, 07/01/2020 Influenza Vaccine (FLU shot) (#1) 2024 04/05/2023, [...] Advance Directives occurred with: Patient Care Teams Fagoting Machine Operator Relationship Specialty Start Date End Date Adriel Whitaker MD [address] [facility] [address] PCP - General Family Medicine 10/20/17 documented as of this encounter
--- OUTSIDE RECORDS SUMMARY | 2024-02-23 06:14 | External Medical Summary | Summary of Care ---
Author Name Unknown Organization [facility] Address [address] [place] [address] Phone [phone] Care Team Providers Care Review Analyst Name Role Phone Adriel Whitaker MD Primary Care Provider +1- [phone] Reason for Visit * Reason Onset Date Comments Hospital Follow-Up Hospital f/u Hospital Follow-Up 12/30/2023 Encounter Details Date Type Department Care Team (Late st Contact Info) Description 12/30/2023 10:00 AM EDT Office Visit [facility] [address] [place] [address] Adriel Whitaker MD [address], [place] [id number] Syncope and collapse*; HTN, goal below 140/90; Moderate episode of recurrent major depressive disorder (HCC); Severe anxiety with panic; Hospital discharge follow-up Allergies Active Allergy Reactions Criticality Noted Date Comments Cisapride 11/05/1998 diarrhea Doxycycline 11/05/1998 diarrhea Macrolides And Ketolides 05/17/2000 zithromax, diarrhea Salicylates 11/05/1998 intol documented as of this encounter (statuses as of 12/30/2023) Medications Medication Sig Dispensed Refills Start Date [...] as of this encounter (statuses as of 12/30/2023) Active Problems Problem Noted Date Diagnosed Date [...] as of this encounter (statuses as of 12/30/2023) Resolved Problems Problem Noted Date Diagnosed Date [...] as of this encounter (statuses as of 12/30/2023) Immunizations Name Administration Dates Next Due Pneumococcal [...] to Q uit: Not Asked; Counseling Given: No Comments:began at age 27 States smoking 5 [...] Sign Reading Time Taken Comments Blood Pressure 122/80 12/30/2023 9:59 AM EDT Pulse 92 12/30/2023 9:59 AM EDT Temperature 36 C (96.8 F) 12/30/2023 9:59 AM EDT Respiratory Rate 16 12/30/2023 9:59 AM EDT Oxygen Saturation - - Inhaled Oxygen Concentration - - Weight 45 kg (99 lb 3.2 oz) 12/30/2023 9:59 AM E DT Height - - Body Mass Index 16.01 10/11/2023 2:35 PM EDT documented in this [...] Progress Notes * Adriel Whitaker MD - 12/30/2023 1:11 PM EDT Subjective: Faith Chavis is a 73 year old female here today for Chief Complaint Patient presents with Hospital Follow-Up Hospital f/u Hospital Follow-Up Patient presents for hospital follow-up. She was admitted to [facility] 12[facility]23 - 12/26/23. Patient presented to the emergency department after an apparent syncopal episode. She was found to have low blood pressure and appeared dehydrated. It was felt her syncopal event was most likely related to orthostas is. She had hit her head so a CT scan was done which showed no acute issues. With IV fluids and holding her losartan, her symptoms significantly improved. Her blood pressure improved. Her kidney function improved. She was discharged back to home with instructions to continue to hold the losartan. Patient has not had any further falls since she has been home. She states she still does not feel right. She reports that ever since her colon surgery she has felt like things are quite right with her energy levels and moods. She has had multiple visits discussing her anxiety. She is on paroxetine extended release 12.5 milligrams daily, trazodone 50 milligrams at bedtime, alprazolam 0.25 milligrams 3 times a day as needed. Past Medical History: Diagnosis Date Dyslipidemia, goal LDL below 100 Gastro-esophageal reflux Generalized anxiety disorder HTN, goal below 140/90 Past Surgical History: Procedure Laterality Date CAROTID (INTERNAL) ARTERY CATHETHER PLACEMENT Right 09/07/2022 CATHETER PLACEMENT INTERNAL CAROTID ARTERY RADIAL ACCESS performed by Ari Toney MD at OR [facility] COLONOSCOPY, DIAGNOSTIC (RECTUM) N/A 09/24/2022 COLONOSCOPY FLEXIBLE PROXIMAL DIAGNOSTIC performed by Hannah Lepe MD at ENDOSCOPY [facility] EGD, FLEXIBLE, DIAGNOSTIC N/A 09/24/2022 ESOPHAGOGASTRODUODENOSCOPY (EGD), FLEXIBLE, TRANSORAL, DIAGNOSTIC performed by Hannah Lepe MD at ENDOSCOPY [facility] INFORMATION 3 pregnancies, l&D x2, misscarriage LAPAROSCOPIC COLECTOMY PARTIAL WITH ANASTOMOSIS N/A 11/08/2022 LAPAROSCOPIC PARTIAL COLECTOMY WITH ANASTOMOSIS performed by Gina Kapadia MD at OR [facility] LIGATE/CUT OVIDUCT(S) Tubal Ligation Review of patient's [...] 108 (90 Base) MCG/ACT Inhalation Aerosol Solution Aspirin 81 MG Oral Tablet Chewable Take 1 Tablet by mouth in the morning. 34 Tablet 11 PARoxetine HCl ER 12.5 MG Oral Tablet [...] for Shortness of Breath. 18 g 5 Rosuvastatin Calcium 20 MG Oral Tablet (Crestor) Take 1 Tablet by mouth in the morning. 90 Tablet 3 ALPRAZolam 0.25 MG Oral Tablet (xaNAX) Take 1 Tablet by mouth 3 times a day as needed for Anxiety. 90 Tablet 0 Pantoprazole Sodium 40 MG Oral Tablet Delayed Release (Protonix) Take 1 tab twice daily for 4 weeksthen take 1 tab daily. (Patient not taking: Reported on 12/30/2023) 60 Tablet 5 No current facility-administered medications for this visit. Objective: BP 122/80 | Pulse 92 | Temp 36 C (96.8 F) (Tympanic) | Resp 16 | Wt 45 kg (99 lb 3.2oz) | BMI 16.01 kg/m | BSA 1.45 m GEN: NAD HEENT: Benign NECK: Supple with no LAD, TM, JVD CHEST: CTA B CV: RRR ABD: Soft, NT/ND, No HSM, NABS EXT: No c,c,e Assessment and Plan: Syncope and collapse (Primary) -likely related to dehydration and orthostasis. Continue to hold losartan. Blood pressure is excellent today. No further falls or syncopal episodes. Repeat labs next week HTN, goal below 140/90 - BASIC METABOLIC PANEL; Future; Expected date: 12/30/2023 Moderate episode of recurrent major depressive disorder (HCC) Severe anxiety with panic -discussed that her ongoing symptoms may relate to side effect of mental health meds or inadequate control of depression or anxiety. We discussed possible changes that could be made to her medications. I would give consideration to an increased dose of paroxetine. She declines that at the current time. She will let me know of any new or worsening symptoms. Hospital discharge follow-up - DISCH MED RECON CUR MED PRAFUL Whitaker MD documented in this encounter Nursing Notes * Stacy Pedro LPN - 12/30/2023 9:57 AM EDT Chief Complaint Patient presents with Hospital Follow-Up Hospital f/u documented in this encounter Plan of Treatment Upcoming Encounters Date Type Department Care Team (Late st Contact Info) Description 03/07/2024 8:30 AM EDT Office Visit Cardiology, [facility] [address] [place] [address] Martin Ko DO [address] [place] [address] 04/03/2024 11:00 AM EST Office Visit Hematology/Oncology [facility] [address] [facility] [place] [address] Yosvany Moe MD [address] [facility] [place] [address] 05/03/2024 9:00 AM EST Office Visit [facility] [address] [place] [address] Adriel Whitaker MD [address] [place] [address] Scheduled Orders Name Type Priority Associated Diagnoses Orde r Schedule BASIC METABOLIC PANEL Lab Routine HTN, goal below 140/90 Expected: 12/30/2023 (Approximate), Expires: 12/29/2024 Scheduled Procedures Name Priority Associated Diagnoses Date/Ti [...] Comments DISCUSS TOBACCO CESSATION (REFER TO SMARTSET #3294) 1952 Alpha-1 Antitrypsin 1970 Hepatitis C Screening [...] as of this encounter Visit Diagnoses Diagnosis Syncope and collapse- Primary HTN, goal below 140/90 Unspecified essential hypertension Moderate episode of recurrent major depressive disorder (HCC) Severe anxiety with panic Hospital discharge follow-up Other follow-up examination documented in this encounter Advance Directives * Full Code (Latest Code Status on File) Date Activated Date Inactivated Comments 11/08/2022 11:27 AM 11/11/2022 4:51 PM Question Answer Comments Discussion of Advance Directives occurred with: Patient Care Teams Review Analyst Relationship Specialty Start Date End Date Adriel Whitaker MD [address] [place] [facility] [address] PCP - General Family Medicine 10/20/17 documented as of this encounter"
--- OUTSIDE RECORDS SUMMARY | 2024-02-23 06:14 | External Medical Summary | Summary of Care ---
Author Name Unknown Organization [facility] Address [address] [place] [address] Phone [phone] Care Team Providers Care Hr Business Partner Name Role Phone Adriel Whitaker MD Primary Care Provider +1- [phone] Reason for Visit * Reason Comments eRx-Medication Refill Encounter Details Date Type Department Care Team (Late st Contact Info) Description 01/18/[address] [facility] [address] [place] [address] Adriel Whitaker MD [address] [place] [address] Allergies Active Allergy Reactions Criticality Noted Date Comments Cisapride 11/05/1998 diarrhea Doxycycline 11/05/1998 diarrhea Macrolides And Ketolides 05/17/2000 zithromax, diarrhea Salicylates 11/05/1998 intol documented as of this encounter (statuses as of 01/20/2024) Medications Medication Sig Dispensed Refills Start Date [...] as of this encounter (statuses as of 01/20/2024) Active Problems Problem Noted Date Diagnosed Date [...] as of this encounter (statuses as of 01/20/2024) Resolved Problems Problem Noted Date Diagnosed Date [...] as of this encounter (statuses as of 01/20/2024) Immunizations Name Administration Dates Next Due Pneumococcal [...] (15 years old or older) No 11/09/19 23 Cognitive Status Response Date of Assessm ent Because of a physical, menta l, or emotional condition, do you have serious difficulty concentrating, remembering, or making decisions? (5 years old or older) No 11/08/2022 documented as of this encounter Miscellaneous Notes * Telephone Encounter - Magy Bauer RP - 01/20/2024 9:07 AM EDT Reviewed encounter, holding on losartan. Magy Herzog, PharmD Clinical Pharmacist [facility] ([facility]) [phone] 01/20/2024,9:06 AM * Telephone Encounter - Magy Bauer [facility] - 01/20/2024 9:07 AM EDT Refused Prescriptions: Disp Refills Losartan Potassium 100 MG Oral Tablet (Coz*90 Tab*2 Sig: TAKE 1 TABLET BY MOUTH IN THE MORNING Refused By: MAGY BAUER Reason for Refusal: Course of treatment complete documented in this encounter Plan of Treatment Upcoming Encounters Date Type Department Care Team (Late st Contact Info) Description 03/07/2024 8:30 AM EDT Office Visit Cardiology, [facility] [address] [place] [address] Martin Ko, [address] [place] [address] 04/03/2024 11:00 AM EST Office Visit Hematology/Oncology [facility] [place] [address] [facility] [place] [phone] Yosvany Moe MD [address] [facility] [place] [address] 05/03/2024 9:00 AM EST Office Visit [facility] [address] [place] [address] Adriel Whitaker MD [address] [place] [address] Scheduled Procedures Name Priority Associated Diagnoses Date/Ti [...] Comments DISCUSS TOBACCO CESSATION (REFER TO SMARTSET #[id number]) 1950 Alpha-1 Antitrypsin 1970 Hepatitis C Screening [...] Tdap) 10/19/2023 10/18/2013, 05/09/1990, 05/09/1990 COVID-19 Vaccine (4 - season) 2024 04/01/2021, 07/22/2020, 07/01/2020 Influenza Vaccine [...] Advance Directives occurred with: Patient Care Teams Hr Business Partner Relationship Specialty Start Date End Date Adriel Whitaker MD [address] [place] [address] PCP - General Family Medicine 10/20/17 documented as of this encounter
--- OUTSIDE RECORDS SUMMARY | 2024-02-23 06:14 | External Medical Summary | Summary of Care ---
Author Name Unknown Organization [facility] Address [address] [place] [address] Phone [phone] Care Team Providers Care Storage Consultant Name Role Phone Adriel Whitaker MD Primary Care Provider +1- [phone] Reason for Visit * Reason Onset Date Comments Hospital Follow-Up 12/27/2023 [facility] ([facility]) Encounter Details Date Type Department Care Team (Late st Contact Info) Description 12/27/[address] [address] Perri Luna, JP Hospital Follow-Up ([facility] ([facility])) Allergies Active Allergy Reactions Criticality Noted Date Comments Cisapride 11/05/1998 diarrhea Doxycycline 11/05/1998 diarrhea Macrolides And Ketolides 05/17/2000 zithromax, diarrhea Salicylates 11/05/1998 intol documented as of this encounter (statuses as of 12/28/2023) Medications Medication Sig Dispensed Refills Start Date [...] as of this encounter (statuses as of 12/28/2023) Active Problems Problem Noted Date Diagnosed Date [...] as of this encounter (statuses as of 12/28/2023) Resolved Problems Problem Noted Date Diagnosed Date [...] as of this encounter (statuses as of 12/28/2023) Immunizations Name Administration Dates Next Due Diptheria/Tetanus (Adult) 05/09/1990 Influenza, Whole Virus 02/20/1999 Pneumococcal Conjugate Vacc, 13 Valent (Prevnar) 03/08/2018 Pneumococcal Polysaccharide PPV23 (Pneumovax) 10/13/2006,03/04/1994 Seasonal Influenza, PF, 6 M & above, IM , (FluLaval or Fluzone) 04/05/2023,02/12/2021,01/17/2020,02/08,02/06/2018 Seasonal Influenza, Quadriva lent Hd (Fluzone Hd) 01/28/2022 Seasonal Influenza, Quadriva lent, No Preserve, IM 02/17/2016,02/22/2015 Seasonal Influenza, Split, I IV3, With Preserve, Inj 01/31/2014,03/08/2011,02/07/2010,03/11,03/11/2005,02/20/2002,04/25/2001 ,04/18/2000 TDAP (age 10 and older)(Boostrix) 10/18/2013 documented [...] encounter Miscellaneous Notes * Telephone Encounter - Perri Luna RN - 12/27/2023 1:19 PM EDT Images from the original note were not included. Transitions of Care Note Reason for Referral:Recent Admission Phone visit for follow up: [facility] #1 Admitted to: [facility], Date: 12/25/2023 Discharged to: Home, Date: 12/26/2023 Diagnosis driving hospitalization: JEANA, Syncope, Acute Dehydration Attempted Phone Call First Attempt Call Outcome Left Voicemail/Message Attempted [facility] - no answer. Left message to return call [phone] or . Perri Luna RN Transitions of Care Note Reason for Referral:Recent Admission Phone visit for follow up: [facility] #2 Admitted to: [facility], Date: 12/25/2023 Discharged to: Home, Date: 12/26/2023 Diagnosis driving hospitalization: JEANA, Syncope, Acute Dehydration Source/Contact: Patient Patient states she is trying to take a nap and requests a call back later. Told her I would call her back. Perri Luna RN Discontinued medication: Losartan documented in this encounter Plan of Treatment Upcoming Encounters Date Type Department Care Team (Late st Contact Info) Description 12/30/2023 10:00 AM EDT Office Visit [facility] [address] [place] [phone] Adriel Whitaker MD [address] [place] [address] 03/07/2024 8:30 AM EDT Office Visit Cardiology, [facility] [address] [facility] [address] Martin Ko DO [address] [place] [address] 04/03/2024 11:00 AM EST Office Visit Hematology/Oncology [facility] [address] [place] [phone] Yosvany Moe MD [address] [place] [address] 05/03/2024 9:00 AM EST Office Visit [facility] [address] [place] [phone] Adriel Whitaker MD [address] [place] [address] Scheduled Procedures Name Priority Associated Diagnoses Date/Ti [...] Comments DISCUSS TOBACCO CESSATION (REFER TO SMARTSET #3163) 1950 Alpha-1 Antitrypsin 1970 Hepatitis C Screening [...] Advance Directives occurred with: Patient Care Teams Storage Consultant Relationship Specialty Start Date End Date Adriel Whitaker MD [address] [place] [address] PCP - General Family Medicine 10/20/17 documented as of this encounter
--- OUTSIDE RECORDS SUMMARY | 2024-02-23 06:14 | External Medical Summary | Summary of Care ---
Author Name Unknown Organization [facility] Address [address] [place] [address] Phone [phone] Care Team Providers Care Electronic Plotting System Operator Name Role Phone Adriel Whitaker MD Primary Care Provider +1- [phone] Reason for Visit * Reason Onset Date Comments Test Results 12/28/2023 Encounter Details Date Type Department Care Team (Late st Contact Info) Description 12/28/2023 Telephone Cardiology, [facility] [address] [place] [address] Martin Ko O, DO [address] [place] [address] Test Results Allergies Active Allergy Reactions Criticality [...] 12/28/2023) Immunizations Name Administration Dates Next Due Pneumococcal [...] encounter Miscellaneous Notes * Telephone Encounter - Ruel Bobo LPN - 12/28/2023 2:56 PM EDT Sent patient a [employer] message to make aware. ----- Message from Martin Ko DO sent at 12/28/2023 2:55 PM EDT ----- Stable, mild right internal carotid artery stenosis. Chronic left internal carotid artery occlusion visualized (unchanged). documented in this encounter Plan of Treatment Upcoming Encounters Date Type Department Care Team (Late st Contact Info) Description 12/30/2023 10:00 AM EDT Office Visit [facility] [address] [place] [address] Adriel Whitaker MD [address] [place] [address] 03/07/2024 8:30 AM EDT Office Visit Cardiology, [facility] [address] [place] [address] Martin Ko DO [address] [place] [address] 04/03/2024 11:00 AM EST Office Visit Hematology/Oncology [facility] [address] [facility] [address] Yosvany Moe MD [address] [place] [address] 05/03/2024 9:00 AM EST Office Visit [facility] [address] [place] [address] Adriel Whitaker MD [address] [place] [address] Scheduled Procedures Name Priority Associated Diagnoses Date/Ti [...] Comments DISCUSS TOBACCO CESSATION (REFER TO SMARTSET #4635) 1950 Alpha-1 Antitrypsin 1970 Hepatitis C Screening 1970 Cologuard 1997 Fecal Occult Blood Test 1997 Sigmoidoscopy 1997 Zoster Vaccines (1 of 2) 2002 DXA Scan 12/25/2005 12/25/1998 Mammogram 02/11/2017 02/12/2016, 08/29/2012 Adult Wellness Visit 2018 Pneumococcal Vaccine: 65+ Years (3 of 3 - PPSV23 or PCV20) 03/08/2019 03/08/2018, 10/13/2006, 03/04/1994 Depression Monitoring 03/31/2021 03/31/2020 COVID-19 Vaccine (4 - 2022- season) 2023 04/01/2021, 07/22/2020, 07/01/2020 DTaP,Tdap,and Td [...] Advance Directives occurred with: Patient Care Teams Electronic Plotting System Operator Relationship Specialty Start Date End Date Adriel Whitaker MD [address] [place] [address] PCP - General Family Medicine 10/20/17 documented as of this encounter
--- OUTSIDE RECORDS SUMMARY | 2024-02-23 06:14 | External Medical Summary | Summary of Care ---
Author Name Unknown Organization [facility] Address [address] [place] [address] Phone [phone] Care Team Providers Care Warehouse Selector Name Role Phone Marisela Vaughan MD Primary Care Provider +1- [phone] Reason for Visit * Reason Onset Date Comments Medication Refill 01/23/2024 Encounter Details Date Type Department Care Team (Late st Contact Info) Description 01/23/[address] [facility] [address] [place] [address] Marisela Vaughan MD [address] [place] [address] Agoraphobia with panic disorder; Severe [...] day as needed for Anxiety. 90 Tablet 01/24/2024 Active ALPRAZolam 0.25 MG Oral Tablet (xaNAX)Indicatio [...] 04/16/2004 02/06/2018 Overview: seen by Dr. Martinez 2003 - treated with Protopic GENERALIZED ANXIETY DIS [...] Telephone Encounter - Marisela Vaughan MD - 01/24/2024 1:06 PM EDTSigned Prescriptions: Disp Refills ALPRAZolam 0.25 MG Oral Tablet (xaNAX) 90 Tab*0 Sig: Take 1 Tablet by mouth 3 times a day as needed for Anxiety.Authorizing Provider: MARISELA VAUGHAN * Telephone Encounter - Lois Brown [facility] - 01/24/2024 1:03 PM EDT Pending Prescriptions: Disp Refills ALPRAZolam 0.25 MG Oral Tablet (xaNAX) 90 Tab*0 Sig: Take 1 Tablet by mouth 3 times a day as needed for Anxiety. * Telephone Encounter - Lois Brown [facility] - 01/24/2024 1:02 PM EDT I have reviewed the patients controlled substance dispensing history in the Prescription Drug Monitoring Program in compliance with the [facility] regulations before prescribing a controlled substance. PDMP checked on 01/24/2024. Pending Prescriptions: Disp Refills ALPRAZolam 0.25 MG Oral Tablet (xaNAX) 90 Tab*0 Sig: Take 1 Tablet by mouth 3 times a day as needed for Anxiety. Last Visit: 12/30/2023 (in office), Visit date not found (telemedicine) Next Visit: 05/03/2024 Date medication was last filled: 12/14/23 Date medication is due for refill: 01/12/24 Pharmacy: [id number] [address] [facility] Is this request for a controlled substance? [...] to confirmatory testing. Please approve if appropriate. Thank you, Lois Brown, PharmD Clinical Pharmacist [facility] ([facility]) 01/24/24 1:02 PM [phone] documented in this encounter Plan of Treatment Upcoming Encounters Date Type Department Care Team (Late st Contact Info) Description 03/07/2024 8:30 AM EDT Office Visit Cardiology, [facility] [address] [place] [address] Martin Ko DO [address] [place] [address] 04/03/2024 11:00 AM EST Office Visit Hematology/Oncology [facility] [address] [facility] [place] [phone] Yosvany Moe MD [address] [place] [address] 05/03/2024 9:00 AM EST Office Visit [facility] [address] [place] [phone] Marisela Vaughan MD [address] [place] [address] Scheduled Procedures Name Priority Associated Diagnoses Date/Ti [...] Comments DISCUSS TOBACCO CESSATION (REFER TO SMARTSET #9871) 1950 Alpha-1 Antitrypsin 1970 Hepatitis C Screening [...] Advance Directives occurred with: Patient Care Teams Warehouse Selector Relationship Specialty Start Date End Date Oesterling, Marisela R, MD [address] [facility] [facility] [address] PCP - General Family Medicine 10/20/17 documented as of this encounter
--- OUTSIDE RECORDS SUMMARY | 2024-02-23 06:14 | External Medical Summary | Summary of Care ---
Author Name Unknown Organization [facility] Address [address] [place] [address] Phone [phone] Care Team Providers Care Virtual Customer Assistant Name Role Phone Adriel Whitaker MD Primary Care Provider +1- [phone] Reason for Visit * Reason Onset Date Comments Test Results 10/06/2023 Encounter Details Date Type Department Care Team (Late st Contact Info) Description 10/06/2023 Telephone Cardiology, [facility] [address] [place] [address] Martin Ko O, DO [address] [place] [address] Test Results Allergies Active Allergy Reactions Criticality Noted Date Comments Cisapride 11/05/1998 diarrhea Doxycycline 11/05/1998 diarrhea Macrolides And Ketolides 05/17/2000 zithromax, diarrhea Salicylates 11/05/1998 intol documented as of this encounter (statuses as of 01/05/2024) Medications Medication Sig Dispensed Refills Start Date [...] before bedtime. 204 Tablet 3 08/31/2023 Active Simvastatin 20 MG Oral Tablet (Zocor)Indicatio ns:Dyslipidemia, goal LDL below 100 take 1 tablet by mouth at bedtime 90 Tablet 1 02/05/2023 4 Discontinue d(Medicatio n/Dose Changed) Losartan Potassium 100 MG Oral Tablet (Cozaar) Take 1 Tablet by mouth in the morning. 90 Tablet 3 04/05/2023 4 Discontinue d(Discharge d) ALPRAZolam 0.25 MG Oral Tablet (xaNAX)Indicatio ns:Agoraphobia with panic disorder,Severe anxiety with panic,Controlled substance agreement signed,Anxiety Take 1 Tablet by mouth 3 times a day as needed for Anxiety. 90 Tablet 09/20/2023 Discontinue d(Refill) documented as of this encounter (statuses as of 01/05/2024) Active Problems Problem Noted Date Diagnosed Date [...] as of this encounter (statuses as of 01/05/2024) Resolved Problems Problem Noted Date Diagnosed Date [...] as of this encounter (statuses as of 01/05/2024) Immunizations Name Administration Dates Next Due Pneumococcal [...] encounter Miscellaneous Notes * Telephone Encounter - Ajit Almeida OSA - 10/11/2023 8:24 AM EDT Called patient, she is able to come in on 11/01/23 at 3 pm thank you. * Telephone Encounter - Alex Smith RN - 10/10/2023 10:20 AM EDT Called and spoke to the patient and reviewed the message with her from DR. Ko in regards to her cardiac testing. She states she wants an appointment with DR. Ko before she will make any further decisions about her care. 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 Asymmetric hypertrophy involves the septum, anterior wall, and base inferior wall. Recommend referral to hypertrophic cardiomyopathy clinic. Recommend cardiac genetics referral. Schedule clinic appointment to discuss findings. * Telephone Encounter - Tessa Coates OSA - 10/07/2023 9:42 AM EDT Person calling: Pt Relationship to patient: self Number to return call: [phone] Reason for call(brief): Test Results Pharmacy: n/a Provider Name: Dr. Ko Detailed message to office: Pt requesting a call back by Dr. Ko or nurse to go over Cardiac MRI test results. Please advise. * Telephone Encounter - Pamella Pate OSA - 10/06/2023 11:28 AM EDT Person calling: Faith Relationship to patient: patient Number to return call: [phone] Reason for call(brief): Cardiac MRI test results Pharmacy: n/a Provider Name: Stefani Detailed message to office: Please call with the results. documented in this encounter Plan of Treatment Upcoming Encounters Date Type Department Care Team (Late st Contact Info) Description 03/07/2024 8:30 AM EDT Office Visit Cardiology, [facility] [address] [place] [address] Martin Ko DO [address] [place] [address] 04/03/2024 11:00 AM EST Office Visit Hematology/Oncology [facility] [address] [facility] [place] [phone] Yosvany Moe MD [address] [facility] [place] [address] 05/03/2024 9:00 AM EST Office Visit [facility] [address] [place] [facility] [place] [phone] Adriel Whitaker MD [address] [place] [address] Scheduled Procedures Name Priority Associated Diagnoses Date/Ti [...] Comments DISCUSS TOBACCO CESSATION (REFER TO SMARTSET #0314) 1950 Alpha-1 Antitrypsin 1970 Hepatitis C Screening 1970 Cologuard 1997 Fecal Occult Blood Test 1997 Sigmoidoscopy 1997 Zoster Vaccines (1 of 2) 2002 DXA Scan 12/25/2005 12/25/1998 Mammogram 02/11/2017 02/12/2016, 08/29/2012 Adult Wellness Visit 2018 Pneumococcal Vaccine: 65+ Years (3 of 3 - PPSV23 or PCV20) 03/08/2019 03/08/2018, 10/13/2006, 03/04/1994 Depression Monitoring 03/31/2021 03/31/2020 COVID-19 Vaccine ( - season) 2023 04/01/2021, 07/22/2020, 07/01/2020 DTap/Tdap Vaccines (2 - Td or Tdap) [...] Advance Directives occurred with: Patient Care Teams Virtual Customer Assistant Relationship Specialty Start Date End Date Adriel Whitaker MD [address] [place] [address] PCP - General Family Medicine 10/20/17 documented as of this encounter
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
[2024-02-23] MEDS: ACETAMINOPHEN 325 MG TAB PO PRN (07:12)
[2024-02-23] MEDS: FAMOTIDINE 20 MG TAB PO SCH (07:34)
[2024-02-23] MEDS: amLODIPine BESYLATE 5 MG TAB PO SCH (07:34)
[2024-02-23] MEDS: carvediloL 3.125 MG TAB PO SCH (07:34)
[2024-02-23] MEDS: PARoxetine HCl CONTROLLED REL 12.5 MG TABCR PO SCH (07:34)
[2024-02-23] MEDS: ASPIRIN 81 MG ECTAB PO SCH (07:34)
[2024-02-23] MEDS: NICOTINE 7 MG/24 HR TDSY TD SCH (07:35)
[2024-02-23] MEDS: ONDANSETRON INJ 2 MG/ML 2 ML VIAL IV PRN (11:39)
[2024-02-23] MEDS: oxyCODONE HCL IR 5 MG TAB (IMMEDIATE RELEASE) PO PRN (12:01)
[2024-02-23] MEDS: POLYETHYLENE (MIRALAX) 17 GM PACK PO PRN (13:06)
--- NOTE | 2024-02-23 14:26 | Hospitalist Progress Note ---
Date of Service February 23, 2024 Assessment & Plan (1) Generalized weakness: (2) COVID-19: (3) COPD (chronic obstructive pulmonary disease): (4) Arthralgia: Plan: Patient is 73 year old female with PMH HTN, dyslipidemia, anxiety, depression, GERD, COPD, AAA, presented to ER with c/o congestion and weakness x 3 days without increased cough and denies CP, SOB COVID-19 infection Generalized weakness/ambulatory dysfunction secondary to above --CXR:No acute process. Normal CRP Procalcitonin pending Saturating well on room air Pulmonary hygiene Nebs as needed Continue airborne precautions Symptomatic management PT OT, fall precautions (5) Dyslipidemia: Plan: Continue rosuvastatin (6) GERD (gastroesophageal reflux disease): Plan: Continue famotidine Tobacco use disorder Continue nicotine patch (7) Anxiety: Plan: Continue paroxetine, Xanax prn Constipation MiraLAX as needed DVT Px: Heparin SQ Code Status Full Code Admission and Anticipated Discharge Date Admission Date: February 22, 2024 Subjective Patient is seen and examined at bedside States having back pain and constipated Denies any cough, shortness of breath Also reports having some chest congestion Discussed with patient's family at bedside Saturating well on room air No other complaints Review of Systems Review of Systems: All systems reviewed & are unremarkable except as noted in Subjective Physical Exam Physical Exam: Physical Exam: Vitals signs as noted above General Appearance:Thin, frail, no apparent distress, Elderly Head: normocephalic, Atraumatic Eyes: normal inspection, EOMI Neck: supple, Trachea midline Respiratory/Chest: Normal breath sounds, CTA, No accessory muscle use Cardiovascular: S1, S2, + murmur Abdomen/GI:Soft, Non tender, Bowel sounds present Extremities/Musculoskeletal:normal inspection, no edema Neurologic/Psych:AAOX3, grossly no focal neurological deficits Skin: normal color, warm Results & Data Results & Data Vital Signs (Past 12 Hours) Vital Signs Temp Pulse Pulse Resp BP Pulse Ox O2 Del Method 02/23/24 14:18 62 02/23/24 11:39 36.5 C 62 18 155/71 H 99 Room Air 02/23/24 07:25 72 02/23/24 04:11 36.8 C 83 14 117/73 96 Room Air Laboratory Results [facility] 02/22/24 13:59 Sodium 139 Potassium 3.7 Chloride 101 Carbon Dioxide 31 BUN 23 Creatinine 0.92 Glucose 86 Calcium 8.9 Liver Function 02/22/24 Range/Units 13:59 Total Bilirubin 0.3 (0.2-1.0) mg/dl AST 20 (13-39) U/L ALT 17 (7-52) U/L Alkaline Phosphatase 53 (34-104) U/L Albumin 4.3 (3.4-5.0) gm/dl (3) COPD (chronic obstructive pulmonary disease) COPD type: COPD with acute exacerbation Qualified Code(s): J44.1 - Chronic obstructive pulmonary disease with (acute) exacerbation
[2024-02-24] MEDS: hydrALAZINE HCL 20 MG/ML VIAL IV PRN (03:49)
[2024-02-24 08:39] LABS: Hematocrit (blood only) 38.3 % (37.0-47.0); Hemoglobin 13.1 g/dl (12.0-16.0); Mean Corpuscular Hemoglobin 31.1 pg (25.0-34.0); Mean Corpuscular Hgb Conc 34.2 g/dL (32.0-36.0); Mean Platelet Volume 10.1 fL (9.4-12.4); Platelet Count 173 K/uL (130-400); RDW Coefficient of Variation 11.8 % (11.5-14.5); RDW Standard Deviation 39.2 fL (36.4-46.3); Red Blood Count 4.21 M/uL (4.20-5.40); White Blood Count 6.12 K/ul (4.8-10.8)
[2024-02-24 08:49] LABS: Calcium 8.7 mg/dl (8.6-10.3); Potassium 3.7 mmol/L (3.5-5.1)
[2024-02-24 08:54] LABS: BUN Creatinine Ratio 29.9 (10-20); Creatinine Clr Calc Pharmacy 42.2 ml/min
[2024-02-24] MEDS: FLUTICASONE PROPIONATE NA SPR 16 GM BTL SCH (09:16)
[2024-02-24] MEDS: LEVALBUTEROL 1.25 MG/3 ML NEB NEB PRN (12:10)
[2024-02-24] MEDS ORDERED: ALBUTEROL HFA 8 GM INHALER INH PRN (12:20)
--- NOTE | 2024-02-24 13:40 | CT Scan Report ---
CT head/brain wo con CLINICAL HISTORY: Change in mental status Technique: Contiguous axial CT images of the head were acquired from the base of the skull to the vanessa violeta without intravenous contrast administration. Images were viewed in brain, subdural and bone windo ws. Automated dose lowering techniques and/or adjustment according to patient size were utilized for this exam. Comparison: Comparison is made to CT head 12/25/2023 Findings: The ventricles, basal cisterns, and cerebral sulci are normal. There is no acute intracranial hemorrh age or evidence of acute territorial infarction. Neither mass effect, shift of the midline structures , nor abnormal extra-axial fluid collections are shown. Imaged portions of the paranasal sinuses and mastoid air cells are clear. The orbits appear normal. There are no acute fractures of the calvaria or scalp swelling. Impression: No acute intracranial hemorrhage, no evidence of acute territorial infarction or other acute intracra nial disease process. ACT 112: Negative or not required by law. Electronically signed by: Fransisco Arredondo M.D. 02/24/2024 1:39 PM
[2024-02-24] MEDS: PANTOprazole 40 MG TAB PO SCH (13:41)
[2024-02-24] MEDS: cefTRIAXone SODIUM 1,000 MG/50 ML BAG IV SCH (13:41)
[2024-02-24] MEDS: dexAMETHasone 6 MG in SYRINGE 0 ML IV SCH (13:41)
[2024-02-24 16:14] LABS: Appearance Urine Clear (Clear); Bacteria Urine Automated None Seen (None Seen); Bilirubin Urine Negative (Negative); Blood Urine Negative (Negative); Cast Urine Automated 0-2 /lpf (0-2); Color Urine Yellow; Epithelial Cell Urine Auto 0-2 /hpf (0-2); Glucose Urine UA Negative (Negative); Ketones Urine Negative (Negative); Leukocyte Esterase Urine Negative (Negative); Nitrite Urine Negative (Negative); Protein Urine Trace (Negative); RBC Urine Automated 0-2 /hpf (0-2); Specific Gravity Urine 1.023 (1.000-1.030); Urobilinogen Urine Negative (Negative); WBC Urine Automated 0-5 /hpf (0-5); pH Urine 6.5 (4.5-7.5)
--- NOTE | 2024-02-24 17:45 | Hospitalist Progress Note ---
Date of Service February 24, 2024 Assessment & Plan (1) Generalized weakness: (2) COVID-19: (3) COPD (chronic obstructive pulmonary disease): (4) Arthralgia: Plan: Patient is 73 year old female with PMH HTN, dyslipidemia, anxiety, depression, GERD, COPD, AAA, presented to ER with c/o congestion and weakness x 3 days without increased cough and denies CP, SOB COVID-19 infection Generalized weakness/ambulatory dysfunction secondary to above --CXR:No acute process. Normal CRP, normal procalcitonin Saturating well on room air Pulmonary hygiene Nebs as needed Continue airborne precautions PT OT, fall precautions Given wheezing on exam, started on steroids Also will empirically start on antibiotics Acute metabolic encephalopathy Likely delirium --CT Head:No acute intracranial hemorrhage, no evidence of acute territorial infarction or other acute intracranial disease process. UA--not suggestive of UTI Minimize sedative meds as able Reorient frequently (5) Dyslipidemia: Plan: Continue rosuvastatin (6) GERD (gastroesophageal reflux disease): Plan: Continue famotidine Tobacco use disorder Continue nicotine patch (7) Anxiety: Plan: Continue paroxetine, Xanax prn Constipation MiraLAX as needed DVT Px: Heparin SQ Code Status Full Code Admission and Anticipated Discharge Date Admission Date: February 22, 2024 Subjective Patient is seen and examined at bedside Transient confusion this morning as per patient's family Patient states having cough with expectoration and shortness of breath today Also reports headache and nausea, generalized weakness Saturating well on room air Reported nasal congestion to gore maker of Systems 2 Review of Systems: All systems reviewed & are unremarkable except as noted in Subjective Physical Exam Physical Exam: Physical Exam: Vitals signs as noted above General Appearance:Thin, frail, no apparent distress, Elderly Head: normocephalic, Atraumatic Eyes: normal inspection, EOMI Neck: supple, Trachea midline Respiratory/Chest: Decreased breath sounds, scattered wheezes, No accessory muscle use Cardiovascular: S1, S2, + murmur Abdomen/GI:Soft, Non tender, Bowel sounds present Extremities/Musculoskeletal:normal inspection, no edema Neurologic/Psych:AAOX3, grossly no focal neurological deficits Skin: normal color, warm Results & Data Results & Data Vital Signs (Past 12 Hours) Vital Signs Temp Pulse Pulse Resp BP Pulse Ox O2 Del Method 02/24/24 15:26 36.6 C 61 18 175/82 H 96 Room Air 02/24/24 14:06 69 02/24/24 12:10 67 16 96 Room Air 02/24/24 11:49 36.5 C 67 16 111/67 97 Room Air 02/24/24 09:15 Room Air 02/24/24 07:45 36.7 C 65 20 155/76 H 99 Room Air 02/24/24 07:26 71 Laboratory Results Short CBC 02/24/24 Range/Units 08:12 WBC 6.12 (4.8-10.8) K/ul Hgb 13.1 (12.0-16.0) g/dl Hct 38.3 (37.0-47.0) % Plt Count 173 (130-400) K/uL BMP 02/24/24 08:12 Sodium 141 Potassium 3.7 Chloride 107 Carbon Dioxide 28 BUN 26 H Creatinine 0.87 Glucose 87 Calcium 8.7 Urine 02/24/24 Range/Units 15:50 Urine Color Yellow Urine Appearance Clear (Clear) Urine pH 6.5 (4.5-7.5) Ur Specific [place] 1.023 (1.000-1.030) Urine Protein Trace H (Negative) Urine Glucose (UA) Negative (Negative) (3) COPD (chronic obstructive pulmonary disease) COPD type: COPD with acute exacerbation Qualified Code(s): J44.1 - Chronic obstructive pulmonary disease with (acute) exacerbation
[2024-02-24 19:32] VITALS: O2SAT 97
[2024-02-24] MEDS: FAMOTIDINE 20 MG TAB PO SCH (21:02)
[2024-02-25 06:34] LABS: Hematocrit (blood only) 37.8 % (37.0-47.0); Hemoglobin 12.7 g/dl (12.0-16.0); Mean Corpuscular Hgb Conc 33.6 g/dL (32.0-36.0); Mean Corpuscular Volume 92.2 fL (80.0-100.0); Mean Platelet Volume 10.3 fL (9.4-12.4); Platelet Count 191 K/uL (130-400); RDW Coefficient of Variation 11.8 % (11.5-14.5); RDW Standard Deviation 39.8 fL (36.4-46.3); White Blood Count 6.55 K/ul (4.8-10.8)
[2024-02-25 06:51] LABS: BUN Creatinine Ratio 29.6 (10-20); Calcium 8.9 mg/dl (8.6-10.3); Creatinine Clr Calc Pharmacy 37.9 ml/min; Magnesium 2.3 mg/dl (1.7-2.4); Potassium 3.9 mmol/L (3.5-5.1)
[2024-02-25 07:06] LABS: Thyroid Stimulating Hormone 0.325 uIu/ml (0.300-4.500)
[2024-02-25 07:55] VITALS: RESP 16
[2024-02-25 10:42] VITALS: TEMP 97.9
--- NOTE | 2024-02-25 12:50 | XRay Report ---
XR KUB/Abdomen 1 view CLINICAL HISTORY: constipation TECHNIQUE: 1 view of the abdomen was obtained. Comparison: Comparison is made to CT abdomen pelvis 09/21/2023 FINDINGS: Lung bases are unremarkable. Degenerative changes are seen in the visualized skeleton. The bowel gas pattern is nonobstructive. A moderate amount of stool is noted within the large bowel. IMPRESSION: Moderate stool burden without evidence of fecal impaction. ACT 112: Negative or not required by law. Electronically signed by: Fransisco Arredondo M.D. 02/25/2024 12:49 PM
[2024-02-25] MEDS: bisacodyL 5 MG TABEC PO PRN (12:51)
[2024-02-25] MEDS: DOCUSATE SODIUM 100 MG CAP PO SCH (12:51)
--- NOTE | 2024-02-25 14:27 | Hospitalist Progress Note ---
Date of Service February 25, 2024 Assessment & Plan (1) Generalized weakness: (2) COVID-19: (3) COPD (chronic obstructive pulmonary disease): (4) Arthralgia: Plan: Patient is 73 year old female with PMH HTN, dyslipidemia, anxiety, depression, GERD, COPD, AAA, presented to ER with c/o congestion and weakness x 3 days without increased cough and denies CP, SOB COVID-19 infection Generalized weakness/ambulatory dysfunction secondary to above --CXR:No acute process. Normal CRP, normal procalcitonin Saturating well on room air Pulmonary hygiene Nebs as needed Continue airborne precautions PT OT, fall precautions Transition to p.o. prednisone, antibiotics on discharge Prefers to be discharged home today Acute metabolic encephalopathy Likely delirium --CT Head:No acute intracranial hemorrhage, no evidence of acute territorial infarction or other acute intracranial disease process. UA--not suggestive of UTI Minimize sedative meds as able Reorient frequently Constipation No signs of obstruction on KUB Continue bowel regimen (5) Dyslipidemia: Plan: Continue rosuvastatin (6) GERD (gastroesophageal reflux disease): Plan: Continue famotidine Tobacco use disorder Continue nicotine patch (7) Anxiety: Plan: Continue paroxetine, Xanax prn DVT Px: Heparin SQ Code Status Full Code Disposition Home Admission and Anticipated Discharge Date Admission Date: February 22, 2024 Subjective Patient is seen and examined at bedside Reports constipation which improved with medications today States feeling a lot better today Denies any dyspnea, chest pain, dizziness Minimal cough Saturating well on room air Prefers to be discharged home today Review of Systems Review of Systems: All systems reviewed & are unremarkable except as noted in Subjective Physical Exam Physical Exam: Physical Exam: Vitals signs as noted above General Appearance:Thin, frail, no apparent distress, Elderly Head: normocephalic, Atraumatic Eyes: normal inspection, EOMI Neck: supple, Trachea midline Respiratory/Chest: Decreased breath sounds, scattered wheezes, No accessory muscle use Cardiovascular: S1, S2, + murmur Abdomen/GI:Soft, Non tender, Bowel sounds present Extremities/Musculoskeletal:normal inspection, no edema Neurologic/Psych:AAOX3, grossly no focal neurological deficits Skin: normal color, warm Results & Data Results & Data Vital Signs (Past 12 Hours) Vital Signs Temp Pulse Pulse Resp BP Pulse Ox O2 Del Method 02/25/24 14:05 70 02/25/24 10:41 36.6 C 68 16 154/75 H 97 Room Air 02/25/24 07:54 36.4 C L 66 16 175/87 H 97 Room Air 02/25/24 07:30 Room Air 02/25/24 07:13 81 02/25/24 04:00 36.7 C 68 18 131/76 97 Room Air Laboratory Results Short CBC 02/25/24 Range/Units 05:32 WBC 6.55 (4.8-10.8) K/ul Hgb 12.7 (12.0-16.0) g/dl Hct 37.8 (37.0-47.0) % Plt Count 191 (130-400) K/uL BMP 02/25/24 05:32 Sodium 140 Potassium 3.9 Chloride 104 Carbon Dioxide 28 BUN 29 H Creatinine 0.98 Glucose 89 Calcium 8.9 Urine 02/24/24 Range/Units 15:50 Urine Color Yellow Urine Appearance Clear (Clear) Urine pH 6.5 (4.5-7.5) Ur Specific [place] 1.023 (1.000-1.030) Urine Protein Trace H (Negative) Urine Glucose (UA) Negative (Negative) (3) COPD (chronic obstructive pulmonary disease) COPD type: COPD with acute exacerbation Qualified Code(s): J44.1 - Chronic obstructive pulmonary disease with (acute) exacerbation
--- NOTE | 2024-02-25 14:41 | Discharge Summary ---
Date of Service February 25, 2024 Admission HPI Per Admitting Provider Patient is 73 year old female with PMH HTN, dyslipidemia, anxiety, depression, GERD, COPD, AAA, presented to ER with c/o congestion and weakness x 3 days. Patient reports history smoking and COPD and reports chronic white productive cough. Denies any increased cough or sputum production. Feels like has some nasal and chest congestion but hasn't noticed wheezing. Denies chest tightness or chest pain. Reports sore throat, increased rhinorrhea. States has chronic abdominal pain and abdominal "spasms" to lower abdomen in which she takes Tylenol and Xanax. Has varying loose BMs and constipation at baseline. States had small BM today. She doesn't feel like her abdominal pain is any worse than her baseline. She previously was on PPI but not been taking for months but does take Pepcid daily. States chronically has no appetite and feels has had decreased oral intake past couple of days since becoming ill. She complains of generalized weakness and difficulty walking around and feels unsteady. Feels lightheaded with walking. Denies falls. She complains of pains moving all over her body. States will be in lower back then upper back and then her arms and then her legs. Just seems to be "jumping around" for past 3 days. States that her family friend helps with household tasks was sick with URI symptoms recently. Patient doesn't think has had COVID-19 infection before. Reports had initial two COVID-19 vaccines several years ago. Still smoking. She states took her BP at home and was elevated today. Denies neck stiffness, AVILA, fever/chills, diaphoresis, N/V, syncope, vision changes, neck pain, orthopnea, palpitations, hemoptysis, choking, otalgia, paresthesias, extremity edema, rashes, urinary symptoms. Principal Diagnosis COVID-19 infection Acute metabolic encephalopathy Constipation Discharge Data Allergies Allergy/AdvReac Type Severity Reaction Status Date / Time amoxicillin [From Augmentin] AdvReac Intermediate ABD Verified 02/22/24 16:30 PAIN/VOMITING azithromycin [From Zithromax] AdvReac Intermediate Diarrhea Verified 02/22/24 16:30 clavulanic acid AdvReac Intermediate ABD Verified 02/22/24 16:30 [From Augmentin] PAIN/VOMITING doxycycline AdvReac Intermediate Diarrhea Verified 02/22/24 16:30 Macrolide Antibiotics AdvReac Intermediate Diarrhea Verified 02/22/24 16:30 salicylates AdvReac Intermediate INTOLERANCE Verified 02/22/24 16:30 Tetracyclines AdvReac Intermediate Diarrhea Verified 02/22/24 16:30 Consultations 02/22/24 17:07 ED Decision to Admit Stat Procedures Performed Laboratory Results WBC 6.55 K/ul (4.8-10.8) 02/25/24 05:32 RBC 4.10 M/uL (4.20-5.40) L 02/25/24 05:32 Hgb 12.7 g/dl (12.0-16.0) 02/25/24 05:32 Hct 37.8 % (37.0-47.0) 02/25/24 05:32 MCV 92.2 fL (80.0-100.0) 02/25/24 05:32 MCH 31.0 pg (25.0-34.0) 02/25/24 05:32 MCHC 33.6 g/dL (32.0-36.0) 02/25/24 05:32 RDW Std Deviation 39.8 fL (36.4-46.3) 02/25/24 05:32 RDW Coeff of [place] 11.8 % (11.5-14.5) 02/25/24 05:32 Plt Count 191 K/uL (130-400) 02/25/24 05:32 MPV 10.3 fL (9.4-12.4) 02/25/24 05:32 Immature Gran % (Auto) 0.2 % 02/22/24 13:59 Neut % (Auto) 56.3 % 02/22/24 13:59 Lymph % (Auto) 31.1 % 02/22/24 13:59 [place] % (Auto) 10.4 % 02/22/24 13:59 Eos % (Auto) 1.6 % 02/22/24 13:59 Baso % (Auto) 0.4 % 02/22/24 13:59 Neut # (Auto) 3.19 K/uL (1.40-6.50) 02/22/24 13:59 Lymph # (Auto) 1.76 K/uL (1.20-3.40) 02/22/24 13:59 [place] # (Auto) 0.59 K/uL (0.11-0.59) 02/22/24 13:59 Eos # (Auto) 0.09 K/uL (0.00-0.50) 02/22/24 13:59 Baso # (Auto) 0.02 K/uL (0.00-0.20) 02/22/24 13:59 Immature Gran # (Auto) 0.01 K/uL (0.01-0.20) 02/22/24 13:59 PT 10.5 Seconds (9.0-12.0) 02/22/24 13:59 INR 1.0 (0.9-1.1) 02/22/24 13:59 APTT 25 Seconds (21-31) 02/22/24 13:59 PTT Ratio 0.9 02/22/24 13:59 Sodium 140 mmol/L (136-145) 02/25/24 05:32 Potassium 3.9 mmol/L (3.5-5.1) 02/25/24 05:32 Chloride 104 mmol/L (98-107) 02/25/24 05:32 Carbon Dioxide 28 mmol/L (21-32) 02/25/24 05:32 Anion Gap 8 (3-11) 02/25/24 05:32 BUN 29 mg/dl (6-23) H 02/25/24 05:32 Creatinine 0.98 mg/dl (0.6-1.2) 02/25/24 05:32 Est Cr Clr Drug Dosing 37.9 ml/min 02/25/24 05:32 eGFR 61.71 02/25/24 05:32 BUN/Creatinine Ratio 29.6 (10-20) H 02/25/24 05:32 Glucose 89 mg/dl (70-99(Fasting)) 02/25/24 05:32 Calcium 8.9 mg/dl (8.6-10.3) 02/25/24 05:32 Magnesium 2.3 mg/dl (1.7-2.4) 02/25/24 05:32 Total Bilirubin 0.3 mg/dl (0.2-1.0) 02/22/24 13:59 AST 20 U/L (13-39) 02/22/24 13:59 ALT 17 U/L (7-52) 02/22/24 13:59 Alkaline Phosphatase 53 U/L (34-104) 02/22/24 13:59 Troponin I High Sens 10.1 pg/ml (0-14) 02/22/24 13:59 C-Reactive Protein < 0.50 mg/dl (0-0.5) 02/22/24 13:59 Total Protein 7.2 gm/dl (6.0-8.3) 02/22/24 13:59 Albumin 4.3 gm/dl (3.4-5.0) 02/22/24 13:59 Globulin 2.9 gm/dl (2.5-4.0) 02/22/24 13:59 Albumin/Globulin Ratio 1.5 (0.9-2) 02/22/24 13:59 Vitamin B12 759 pg/ml (180-914) 02/25/24 05:32 Procalcitonin < 0.02 ng/ml (0-0.5) 02/24/24 08:12 TSH 0.325 uIu/ml (0.300-4.500) 02/25/24 05:32 Urine Color Yellow 02/24/24 15:50 Urine Appearance Clear (Clear) 02/24/24 15:50 Urine pH 6.5 (4.5-7.5) 02/24/24 15:50 Ur Specific [place] 1.023 (1.000-1.030) 02/24/24 15:50 Urine Protein Trace (Negative) H 02/24/24 15:50 Urine Glucose (UA) Negative (Negative) 02/24/24 15:50 Urine Ketones Negative (Negative) 02/24/24 15:50 Urine Blood Negative (Negative) 02/24/24 15:50 Urine Nitrite Negative (Negative) 02/24/24 15:50 Urine Bilirubin Negative (Negative) 02/24/24 15:50 Urine Urobilinogen Negative (Negative) 02/24/24 15:50 Ur Leukocyte Esterase Negative (Negative) 02/24/24 15:50 Urine WBC (Auto) 0-5 /hpf (0-5) 02/24/24 15:50 Urine RBC (Auto) 0-2 /hpf (0-2) 02/24/24 15:50 U Hyaline Cast (Auto) 0-2 /lpf (0-2) 02/24/24 15:50 U Epithel Cells (Auto) 0-2 /hpf (0-2) 02/24/24 15:50 Urine Bacteria (Auto) None Seen (None Seen) 02/24/24 15:50 SARS-CoV-2 (PCR) POSITIVE (Negative) A 02/22/24 13:59 Influenza Type A (PCR) Negative (Neg) 02/22/24 13:59 Influenza Type B (PCR) Negative (Neg) 02/22/24 13:59 RSV (RT-PCR) Negative (Neg) 02/22/24 13:59 Impressions Chest X-Ray 02/22/24 13:46 XR chest 1V not portable HISTORY: 73 years-old Female Chest pain, nonspecific COMPARISON: 12/25/2023 TECHNIQUE: AP view of the chest FINDINGS: Cardiac silhouette is normal. Atherosclerosis of the aorta. Chronic deformity of the distal right clavicle. Spondylitic spurring of the spine. No pneumothorax, pleural effusion or airspace consolidation. IMPRESSION: No acute process. ACT 112: Negative or not required by law. The above report was generated using voice recognition software. It may contain grammatical, syntax or spelling errors. Electronically signed by: Olu Villagran M.D. 02/22/2024 2:[address] 02/24/24 12:20 CT head/brain wo con CLINICAL HISTORY: Change in mental status Technique: Contiguous axial CT images of the head were acquired from the base of the skull to the vertex without intravenous contrast administration. Images were viewed in brain, subdural and bone windows. Automated dose lowering techniques and/or adjustment according to patient size were utilized for this exam. Comparison: Comparison is made to CT head 12/25/2023 Findings: The ventricles, basal cisterns, and cerebral sulci are normal. There is no acute intracranial hemorrhage or evidence of acute territorial infarction. Neither mass effect, shift of the midline structures, nor abnormal extra-axial fluid collections are shown. Imaged portions of the paranasal sinuses and mastoid air cells are clear. The orbits appear normal. There are no acute fractures of the calvaria or scalp swelling. Impression: No acute intracranial hemorrhage, no evidence of acute territorial infarction or other acute intracranial disease process. ACT 112: Negative or not required by law. Electronically signed by: Fransisco Arrdeondo M.D. 02/24/2024 1:39 PM KUB X-Ray 02/25/24 12:25 XR KUB/Abdomen 1 view CLINICAL HISTORY: constipation TECHNIQUE: 1 view of the abdomen was obtained. Comparison: Comparison is made to CT abdomen pelvis 09/21/2023 FINDINGS: Lung bases are unremarkable. Degenerative changes are seen in the visualized skeleton. The bowel gas pattern is nonobstructive. A moderate amount of stool is noted within the large bowel. IMPRESSION: Moderate stool burden without evidence of fecal impaction. ACT 112: Negative or not required by law. Electronically signed by: Fransisco Arredondo M.D. 02/25/2024 12:49 PM Ordered Studies 02/24/24 12:20 CT head/brain wo con Urgent Hospital Course (1) Generalized weakness: (2) COVID-19: (3) COPD (chronic obstructive pulmonary disease): (4) Arthralgia: Patient is 73 year old female with PMH HTN, dyslipidemia, anxiety, depression, GERD, COPD, AAA, presented to ER with c/o congestion and weakness x 3 days without increased cough and denies CP, SOB COVID-19 infection Generalized weakness/ambulatory dysfunction secondary to above --CXR:No acute process. Normal CRP, normal procalcitonin Saturating well on room air Pulmonary hygiene Nebs as needed Continue airborne precautions PT OT, fall precautions Transition to p.o. prednisone, antibiotics on discharge Prefers to be discharged home today Acute metabolic encephalopathy Likely delirium --CT Head:No acute intracranial hemorrhage, no evidence of acute territorial infarction or other acute intracranial disease process. UA--not suggestive of UTI Minimize sedative meds as able Reorient frequently Constipation No signs of obstruction on KUB Continue bowel regimen Had bowel movement today (5) Dyslipidemia: Continue rosuvastatin (6) GERD (gastroesophageal reflux disease): Continue famotidine Tobacco use disorder Continue nicotine patch (7) Anxiety: Continue paroxetine, Xanax prn DVT Px: Heparin SQ Code Status Full Code Disposition Home Total Time Total Time Spent Total Time Spent (In Minutes): 42 minutes Discharge Plan Discharge Items Patient Disposition: Home - Self-Care Reason For Visit: COVID, WEAKNESS Discharge Diagnosis: COVID-19 infection Acute metabolic encephalopathy Constipation Activity: Per Instructions section Exercise/Sports: Wait until after follow-up appointment Non-emergency contact: Primary Care Provider Call non-emergency contact if: you have any medication questions, your symptoms worsen, your pain is concerning for you and you have a fever Follow-up/Referrals: Adriel Whitaker MD [Primary Care Provider] - (Date & Time 03/01/2024 11:20 AM Provider Adriel Whitaker MD [facility] ) Diet: Regular Addtl Attending Provider Instructions: Follow-up with your primary care physician on 03/01/2024 11:20 AM -- Complete the antibiotic and prednisone course as prescribed. -- Start taking prednisone 20 mg daily for 2 days, then take 10 mg daily for 2 days and stop Seek immediate medical attention if your symptoms reoccur or worsen Please take all medications as instructed on discharge list below. Please call if you have any questions or problems. You can reach a [facility] hospitalist on duty at [facility] 24 hours a day by calling [phone] Pending Studies at Discharge: No Stand-Alone Forms: My [facility] [employer], Smoking Cessation Medications and DC Order Prescriptions: New fluticasone propionate 50 mcg/actuation [place],Suspension 2 spray NA DAILY PRN (Reason: Nasal congestion) Qty: 16 0RF docusate sodium 100 mg Capsule 100 mg PO BID PRN (Reason: Constipation) Qty: 30 0RF bisacodyl [Gentle Laxative (bisacodyl)] 5 mg Tablet,Delayed Release (Dr/Ec) 5 mg PO DAILY PRN (Reason: constipation) Qty: 10 0RF prednisone 10 mg tablet 10 mg PO DIRECTED Qty: 6 0RF Rx Instructions: Start taking prednisone 20 mg daily for 2 days, then take 10 mg daily for 2 days and stop cefuroxime axetil 250 mg tablet 250 mg PO BID Qty: 10 0RF Continued albuterol sulfate 90 mcg/actuation HFA aerosol inhaler 2 puff INHALATION Q6H PRN (Reason: Shortness Of Breath Or Wheezing) alprazolam 0.25 mg tablet 0.25 mg PO TID PRN (Reason: anxiety ) trazodone 100 mg tablet 100 mg PO HS paroxetine HCl 12.5 mg tablet extended release 24 hr 12.5 mg PO QAM carvedilol 3.125 mg tablet 3.125 mg PO BID aspirin 81 mg Tablet,Chewable 81 mg PO QAM Rx Instructions: OTC unable to verify rosuvastatin 20 mg tablet 20 mg PO HS amlodipine 5 mg tablet 5 mg PO QAM famotidine 20 mg Tablet 20 mg PO DAILY Discharge Orders: Discharge Order (Routine); Ordered 02/25/24 Ordered By: Sedrick Campuzano Admission Data Admit Date/Time: 02/22/24 17:31 Attending Provider: Sedrick Campuzano Admit Provider: Priscilla Longo Primary Care Provider: Adriel Whitaker Other Providers: Priscilla Longo
[2024-02-25 15:01] VITALS: BP 125/79; PULSE 61
[2024-02-25] MEDS ORDERED: POLYETHYLENE (MIRALAX) 17 GM PACK PO SCH (21:00)
== END 2024-02-25 15:35 | disposition home or self-care (01) | DRG 177 ==
LOC: ED 13:41 → SUATTDRO 17:31 → 2W 17:31

== ENCOUNTER 2024-04-30 09:53 | Inpatient (IN) ==
--- NOTE | 2024-04-30 10:42 | XRay Report ---
XR chest 1V portable CLINICAL HISTORY: weakness COMPARISON STUDY: Chest CT August 23, 2022. Chest radiograph February 22, 2024. FINDINGS: Lung volumes are normal. Lungs are clear. There is no pneumothorax or pleural effusion. Car diac size is normal. Mediastinal contours are normal. There is no evidence for pulmonary edema. Statu s post distal right clavicular resection. IMPRESSION: No acute cardiopulmonary findings. ACT 112: Negative or not required by law. Electronically signed by: Chris Carter M.D. 04/30/2024 10:40 AM
[2024-04-30 10:44] LABS: Basophils # (auto) 0.03 K/uL (0.00-0.20); Basophils % (auto) 0.4 %; Eosinophils # (auto) 0.05 K/uL (0.00-0.50); Eosinophils % (auto) 0.6 %; Hematocrit (blood only) 32.8 % (37.0-47.0); Immature Granulocytes # (auto) 0.04 K/uL (0.01-0.20); Immature Granulocytes % (auto) 0.5 %; Lymphocytes # (auto) 1.44 K/uL (1.20-3.40); Lymphocytes % (auto) 17.1 %; Mean Corpuscular Hemoglobin 31.5 pg (25.0-34.0); Mean Corpuscular Hgb Conc 33.5 g/dL (32.0-36.0); Mean Platelet Volume 10.5 fL (9.4-12.4); Monocytes # (auto) 0.83 K/uL (0.11-0.59); Monocytes % (auto) 9.9 %; Neutrophils # (auto) 6.03 K/uL (1.40-6.50); Neutrophils % (auto) 71.5 %; Platelet Count 133 K/uL (130-400); RDW Coefficient of Variation 12.1 % (11.5-14.5); RDW Standard Deviation 42.2 fL (36.4-46.3); Red Blood Count 3.49 M/uL (4.20-5.40); White Blood Count 8.42 K/ul (4.8-10.8)
[2024-04-30] MEDS: ONDANSETRON INJ 2 MG/ML 2 ML VIAL IV STA (10:46)
[2024-04-30] MEDS: SODIUM CHLORIDE 0.9% 500 ML IV ONE (10:49)
[2024-04-30 10:56] LABS: Albumin Globulin Ratio 1.3 (0.9-2); Albumin Level 3.6 gm/dl (3.4-5.0); BUN Creatinine Ratio 26.7 (10-20); Bilirubin,Total 0.6 mg/dl (0.2-1.0); Calcium 9.1 mg/dl (8.6-10.3); Creatinine Clr Calc Pharmacy 30.7 ml/min; Globulin 2.7 gm/dl (2.5-4.0); Magnesium 2.3 mg/dl (1.7-2.4); Potassium 3.4 mmol/L (3.5-5.1); Total Protein 6.3 gm/dl (6.0-8.3)
--- NOTE | 2024-04-30 10:57 | CT Scan Report ---
CT OF THE ABDOMEN AND PELVIS WITHOUT CONTRAST CLINICAL HISTORY: Lower abdominal pain and nausea. Syncope. COMPARISON STUDY: CT of the abdomen and pelvis September 21, 2023. KUB February 25, 2024. Pelvic ultrasound February 03, 2023. TECHNIQUE: Axial images of the abdomen and pelvis were obtained without IV contrast. Images were revi ewed in the axial, sagittal, and coronal planes. Automated exposure control was utilized for the [place] dy. A dose lowering technique was utilized adhering to the principles of ALARA. FINDINGS: Lung bases are unremarkable. A 4 cm distal descending thoracic aortic aneurysm is unchanged since prior CT. Evaluation of the abdomen and pelvis is suboptimal on this unenhanced examination. M ild left hydronephrosis is similar to prior CT. There are no urinary calculi. There is no right hydro nephrosis. Stents of aortoiliac atherosclerotic plaque is present. There is a 3 cm infrarenal abdomin al aortic aneurysm without evidence for rupture. Unenhanced images of the liver, spleen, adrenal glan ds and pancreas are grossly unremarkable. There is no evidence for a bowel obstruction. There is a mo derate amount of stool within the colon and rectum. Colonic diverticulosis is present. There is wall thickening with mild inflammation adjacent to the sigmoid colon. There is no free air. No abscess is present. There is no abdominal or pelvic lymphadenopathy. A 2.7 cm hyperdense right adnexal focus is present. There is no free fluid. No acute fractures are present. Mild compression deformity of L5 is chronic. Status post right hemicolectomy. IMPRESSION: 1. Colonic diverticulosis. Sigmoid colon wall thickening with mild adjacent inflammation. This may re present mild acute sigmoid diverticulitis. 2. No bowel obstruction status post right hemicolectomy. 3. Mild left hydronephrosis. The etiology is unclear however this is similar to prior CT. 4. No change in a 4 cm distal descending thoracic aortic aneurysm and a 3 cm infrarenal abdominal aor tic aneurysm. 5. Moderate amount of stool within the colon and rectum. 6. 2.7 cm hyperdense focus within the right adnexa. This could represent the right ovary although is denser than expected. Nonemergent pelvic ultrasound is recommended. ACT 112: Negative or not required by law. Electronically signed by: Chris Carter M.D. 04/30/2024 10:56 AM
[2024-04-30 11:01] LABS: Troponin I High Sensitivity 8.3 pg/ml (0-14)
--- NOTE | 2024-04-30 11:05 | CT Scan Report ---
CT head/brain wo con CLINICAL HISTORY: fall, syncope Technique: Contiguous axial CT images of the head were acquired from the base of the skull to the vanessa violeta without intravenous contrast administration. Images were viewed in brain, subdural and [facility]. Automated dose lowering techniques and/or adjustment according to patient size were utilized for this exam. Comparison: Comparison is made to CT head 02/24/2024 Findings: The ventricles, basal cisterns, and cerebral sulci are normal. There is no acute intracranial hemorrh age or evidence of acute territorial infarction. Neither mass effect, shift of the midline structures , nor abnormal extra-axial fluid collections are shown. Imaged portions of the paranasal sinuses and mastoid air cells are clear. The orbits appear normal. There are no acute fractures of the calvaria or scalp swelling. Impression: No acute intracranial hemorrhage, no evidence of acute territorial infarction or other acute intracra nial disease process. ACT 112: Negative or not required by law. Electronically signed by: Fransisco Arrednodo M.D. 04/30/2024 11:03 AM
[2024-04-30 11:10] LABS: Thyroid Stimulating Hormone 0.945 uIu/ml (0.300-4.500)
[2024-04-30] MEDS: ACETAMINOPHEN 10MG/ML Custom 650 MG in EMPTY BAG 0 ML IV STA (11:14)
[2024-04-30] MEDS: SODIUM CHLORIDE 0.9% 1,000 ML IV SCH (11:15)
[2024-04-30] MEDS: metroNIDAZOLE 500 MG/100 ML BAG IV STA (11:38)
[2024-04-30] MEDS: CIPROFLOXACIN / D5W 400 MG/200 ML BAG IV STA (11:38)
--- NOTE | 2024-04-30 11:45 | Electrocardiogram Report ---
Test Reason : Blood Pressure : */* mmHG Vent. Rate : 73 BPM Atrial Rate : 73 BPM P-R Int : 176 ms QRS Dur : 66 ms QT Int : 388 ms P-R-T Axes : 77 16 82 degrees QTcB Int : 427 ms Normal sinus rhythm Possible Left atrial enlargement Borderline ECG When compared with ECG of 22-Feb-2024 13:50, Criteria for Septal infarct are no longer Present Confirmed by rOi Gentile ([id number]) on 04/30/2024 11:44:51 AM Referred By: Confirmed By: Ori Gentile
[2024-04-30 11:59] LABS: Appearance Urine Clear (Clear); Bilirubin Urine Negative (Negative); Blood Urine Negative (Negative); Color Urine Yellow; Epithelial Cell Urine Auto 0-2 /hpf (0-2); Glucose Urine UA Negative (Negative); Ketones Urine Negative (Negative); Leukocyte Esterase Urine Negative (Negative); Nitrite Urine Negative (Negative); Protein Urine Trace (Negative); RBC Urine Automated 0-2 /hpf (0-2); Specific Gravity Urine 1.011 (1.000-1.030); Urobilinogen Urine Negative (Negative); WBC Urine Automated 0-5 /hpf (0-5)
[2024-04-30 11:59] LABS: Adenovirus PCR Not Detected (NotDetected); Bordetella parapertussis PCR Not Detected (NotDetected); Bordetella pertussis PCR Not Detected (NotDetected); Chlamydia pneumoniae PCR Not Detected (NotDetected); Coronavirus 229E PCR Not Detected (NotDetected); Coronavirus CoV-2 (COVID19)PCR DETECTED (NotDetected); Coronavirus HKU1 PCR Not Detected (NotDetected); Coronavirus NL63 PCR Not Detected (NotDetected); Coronavirus OC43PCR Not Detected (NotDetected); Human Metapneumovirus PCR Not Detected (NotDetected); Influenza A PCR Not Detected (NotDetected); Influenza B PCR Not Detected (NotDetected); Mycoplasma pneumoniae PCR Not Detected (NotDetected); Parainfluenza Virus 1 PCR Not Detected (NotDetected); Parainfluenza Virus 2 PCR Not Detected (NotDetected); Parainfluenza Virus 3 PCR Not Detected (NotDetected); Parainfluenza Virus 4 PCR Not Detected (NotDetected); Respiratory Syncytial VirusPCR Not Detected (NotDetected); Rhinovirus/Enterovirus PCR Not Detected (NotDetected)
[2024-04-30 12:10] LABS: Bacteria Urine Automated 1+ (None Seen); Granular Casts Urine Present /lpf (None Prsent)
--- NOTE | 2024-04-30 12:31 | History & Physical Report ---
Date of Service April 30, 2024 Assessment & Plan (1) Syncope: (2) Sigmoid diverticulitis: (3) Hypokalemia: (4) COVID-19: (5) Generalized weakness: Plan This is 73 year old female with PMH HTN, dyslipidemia, anxiety, depression, GERD, COPD, AAA, presented to ER She reports, "blacking out," x 2 last night. #Syncope x 2 #Acute Sigmoid Diverticulitis admit to tele Syncope work up to include echo, carotid Doppler and tele monitoring Orthostatics in ED were negative Suspect syncope in setting of volume depletion due to poor intake over last 2 days and pain IV Cipro and Flagyl, probiotic Clear liquid diet PT/OT/nutrition consult --CT a/p: Colonic diverticulosis. Sigmoid colon wall thickening with mild adjacent inflammation. This may represent mild acute sigmoid diverticulitis.2. No bowel obstruction status post right hemicolectomy.3. Mild left hydronep hrosis. The etiology is unclear however this is similar to prior CT.4. No change in a 4 cm distal descending thoracic aortic aneurysm and a 3 cm infrarenal abdominal aortic aneurysm.5. Moderate amount of stool within the colon and rectum.6. 2.7 cm hyperdense focus within the right adnexa. This could represent the right ovary although is denser than expected. Nonemergent pelvic ultrasound is recommended. obtain Transvaginal/pelvic US #Sars COV -2 positive suspect this is not a re infection as pt does not have sx although she does have generalized weakness will defer to infection control #Hypokalemia: K 3.4, replete #Hx of Colon Ca s/p R hemicolectomy 11/[address] Moe under observation #Tobacco use disorder: nicotine patch #COPD: no acute exac #Known AAA 3cm/4cm distal descending thoracic aortic aneurysm: outpt follow up # Severe PCM: nutrition consult, BMI 15.5 #DVT ppx: SQ heparin BID FULL CODE PCP: Dispo: admit to med tele Pt was seen and examined in collaboration with Dr. Isaacs, please see addendum I spent a total of 60 minutes reviewing notes, outpatient records, labs, medication, coordinating, documenting and providing care for this patient excluding time spent in the performance of separately billed services. History of Present Illness Chief Complaint: syncope x 2 last night. Primary Care Provider: Adriel Whitaker MD This is 73 year old female with PMH HTN, dyslipidemia, anxiety, depression, GERD, COPD, AAA, presented to ER She reports, "blacking out," x 2 last night. The one episode she was going to get on the commode and she missed the commode and fell on the floor. She blacked out after that. She did not hit her head. She got back up and fell back down again when she tried to sit on the commode. She denies hitting her head that time. She reports having abdominal pain for 2 years since her surgery. She reports worsening of pain 1 month ago. She reports inability to move her bowels. She feels generally weak. She denies any fever, sweats, chest pain, sob, cough, sore throat, runny nose, vomiting or diarrhea, dysuria, increased urg/freq with urination. Her last BM was 2-3 days ago. Typically she moves her bowels every day until this past couple of days. She denies any recent blood in stool. She felt nauseated yesterday. Overall her appetite is decreased. Pt generally is a poor historian. She lives with her . She normally ambulates w/o assist device. She continues to smoke 0.5ppd. She denies any alcohol or recreational drugs. Allergies Allergy/AdvReac Type Severity Reaction Status Date / Time amoxicillin [From Augmentin] AdvReac Intermediate ABD Verified 02/22/24 16:30 PAIN/VOMITING azithromycin [From Zithromax] AdvReac Intermediate Diarrhea Verified 02/22/24 16:30 clavulanic acid AdvReac Intermediate ABD Verified 02/22/24 16:30 [From Augmentin] PAIN/VOMITING doxycycline AdvReac Intermediate Diarrhea Verified 02/22/24 16:30 Macrolide Antibiotics AdvReac Intermediate Diarrhea Verified 02/22/24 16:30 salicylates AdvReac Intermediate INTOLERANCE Verified 02/22/24 16:30 Tetracyclines AdvReac Intermediate Diarrhea Verified 02/22/24 16:30 Home Medications Medication Instructions Recorded Confirmed Type albuterol sulfate 90 mcg/actuation 2 puff inhalation Q6H PRN 08/23/22 04/30/24 History aerosol inhaler Shortness Of Breath Or Wheezing alprazolam 0.25 mg tablet 0.25 mg PO TID PRN anxiety 05/02/23 04/30/24 History paroxetine HCl 12.5 mg 12.5 mg PO QAM 05/02/23 04/30/24 History tablet,extended release 24 hr trazodone 100 mg tablet 50 mg PO HS 05/02/23 04/30/24 History amlodipine 5 mg tablet 5 mg PO QAM 07/07/23 04/30/24 History aspirin 81 mg chewable tablet 81 mg PO QAM 09/21/23 04/30/24 History carvedilol 3.125 mg tablet 3.125 mg PO BID 09/21/23 04/30/24 History docusate sodium 100 mg capsule 100 mg PO BID PRN Constipation #30 02/25/24 04/30/24 Rx caps fluticasone propionate 50 2 spray NA DAILY PRN Nasal 02/25/24 04/30/24 Rx mcg/actuation nasal congestion #16 grams spray,suspension Past Med/Surg History Problem List (Updated 04/30/24 @ 13:25 by Lucia Guzman PA-C) Sigmoid diverticulitis Generalized weakness (Acute) Arthralgia COVID-19 (Acute) Generalized weakness JEANA (acute kidney injury) (Acute) Syncope (Acute) Acute dehydration (Acute) Weakness (Acute) Hypertensive crisis (Acute) Hyponatremia (Acute) Hypokalemia (Acute) Hypertension Recurrent falls (Acute) Anxiety GERD (gastroesophageal reflux disease) Dyslipidemia COPD (chronic obstructive pulmonary disease) (Acute) Medical History Acute dehydration Weakness AAA (abdominal aortic aneurysm) Surgical History S/P tubal ligation Family History Other Diabetes Social History Smoking Status: Current every day smoker Tobacco Type: Cigarettes packs per day: 0.5; Cigarettes Per Day: 5; Second Hand Exposure: Yes; Do You Dip or Chew Tobacco: No; Hx Alcohol Use: No Hx Substance Use: No Preferred Language: Cymro Communication Ability: Effective Wad Blanking Press Adjuster Required: No Beliefs That Will Affect Care: None Current Living Situation: Spouse Current Living Situation Comment: Fernando Feels Safe at Home: Yes Assistive Devices: Walker Review of Systems Review of Systems: All systems reviewed & are unremarkable except as noted in HPI & below Physical Exam Physical Exam: please refer to DR. Isaacs addendum for physical exam findings. Results & Data Results & Data Vital Signs (Past 12 Hours) Vital Signs Temp Pulse Resp BP Pulse Ox O2 Del Method 04/30/24 10:25 73 04/30/24 10:00 36.0 C L 88 20 106/67 98 Room Air Laboratory Results I have independently reviewed and interpreted patient's admitting labs including CBC, CMP, trop, tsh Diagnostic Findings Chest X-Ray 04/30/24 10:25 XR chest 1V portable CLINICAL HISTORY: weakness COMPARISON STUDY: Chest CT August 23, 2022. Chest radiograph February 22, 2024. FINDINGS: Lung volumes are normal. Lungs are clear. There is no pneumothorax or pleural effusion. Cardiac size is normal. Mediastinal contours are normal. There is no evidence for pulmonary edema. Status post distal right clavicular resection. IMPRESSION: No acute cardiopulmonary findings. ACT 112: Negative or not required by law. Electronically signed by: Chris Carter M.D. 04/30/2024 10:[address] 04/30/24 10:25 CT head/brain wo con CLINICAL HISTORY: fall, syncope Technique: Contiguous axial CT images of the head were acquired from the base of the skull to the vertex without intravenous contrast administration. Images were viewed in brain, subdural and bone windows. Automated dose lowering techniques and/or adjustment according to patient size were utilized for this exam. Comparison: Comparison is made to CT head 02/24/2024 Findings: The ventricles, basal cisterns, and cerebral sulci are normal. There is no acute intracranial hemorrhage or evidence of acute territorial infarction. Neither mass effect, shift of the midline structures, nor abnormal extra-axial fluid collections are shown. Imaged portions of the paranasal sinuses and mastoid air cells are clear. The orbits appear normal. There are no acute fractures of the calvaria or scalp swelling. Impression: No acute intracranial hemorrhage, no evidence of acute territorial infarction or other acute intracranial disease process. ACT 112: Negative or not required by law. Electronically signed by: Fransisco Arredondo M.D. 04/30/2024 11:03 AM Abdomen/Pelvis CT 04/30/24 10:35 CT OF THE ABDOMEN AND PELVIS WITHOUT CONTRAST CLINICAL HISTORY: Lower abdominal pain and nausea. Syncope. COMPARISON STUDY: CT of the abdomen and pelvis September 21, 2023. KUB February 25, 2024. Pelvic ultrasound February 03, 2023. TECHNIQUE: Axial images of the abdomen and pelvis were obtained without IV contrast. Images were reviewed in the axial, sagittal, and coronal planes. Automated exposure control was utilized for the study. A dose lowering technique was utilized adhering to the principles of ALARA. FINDINGS: Lung bases are unremarkable. A 4 cm distal descending thoracic aortic aneurysm is unchanged since prior CT. Evaluation of the abdomen and pelvis is suboptimal on this unenhanced examination. Mild left hydronephrosis is similar to prior CT. There are no urinary calculi. There is no right hydronephrosis. Stents of aortoiliac atherosclerotic plaque is present. There is a 3 cm infrarenal abdominal aortic aneurysm without evidence for rupture. Unenhanced images of the liver, spleen, adrenal glands and pancreas are grossly unremarkable. There is no evidence for a bowel obstruction. There is a moderate amount of stool within the colon and rectum. Colonic diverticulosis is present. There is wall thickening with mild inflammation adjacent to the sigmoid colon. There is no free air. No abscess is present. There is no abdominal or pelvic lymphadenopathy. A 2.7 cm hyperdense right adnexal focus is present. There is no free fluid. No acute fractures are present. Mild compression deformity of L5 is chronic. Status post right hemicolectomy. IMPRESSION: 1. Colonic diverticulosis. Sigmoid colon wall thickening with mild adjacent inflammation. This may represent mild acute sigmoid diverticulitis. 2. No bowel obstruction status post right hemicolectomy. 3. Mild left hydronephrosis. The etiology is unclear however this is similar to prior CT. 4. No change in a 4 cm distal descending thoracic aortic aneurysm and a 3 cm infrarenal abdominal aortic aneurysm. 5. Moderate amount of stool within the colon and rectum. 6. 2.7 cm hyperdense focus within the right adnexa. This could represent the right ovary although is denser than expected. Nonemergent pelvic ultrasound is recommended. ACT 112: Negative or not required by law. Electronically signed by: Chris Carter M.D. 04/30/2024 10:56 AM Medications Administered Medication List Sodium Chloride (Nss) 1,000 mls @ 125 mls/hr IV .Q8H KEELY Stop: 05/01/24 10:44 Last Admin: 04/30/24 11:15 Dose: 125 mls/hr Documented By: KAYLAH Ciprofloxacin (Cipro / D5w) 400 mg in 200 mls @ 100 mls/hr IV NOW STA; Protocol Stop: 04/30/24 13:21 Last Admin: 04/30/24 11:38 Dose: 100 mls/hr Documented By: KAYLAH Discontinued Medications Sodium Chloride (Nss) 500 mls @ 999 mls/hr IV .Q31M ONE Stop: 04/30/24 11:05 Last Infusion: 04/30/24 11:15 Dose: Infused Documented By: Admin: 04/30/24 10:49 Dose: 999 mls/hr Documented By: KAYLAH Acetaminophen 650 mg/ EMPTY (BAG) 65 mls @ 260 mls/hr IV NOW STA Stop: 04/30/24 10:36 Last Infusion: 04/30/24 11:30 Dose: Infused Documented By: Admin: 04/30/24 11:14 Dose: 260 mls/hr Documented By: KAYLAH Metronidazole (Flagyl) 500 mg in 100 mls @ 100 mls/hr IV NOW STA; Protocol Stop: 04/30/24 12:21 Last Admin: 04/30/24 11:38 Dose: 100 mls/hr Documented By: KAYLAH Ondansetron HCl (Ondansetron Inj 2 Mg/Ml 2 Ml Vial) 4 mg IV NOW STA Stop: 04/30/24 10:36 Last Admin: 04/30/24 10:46 Dose: 4 mg Documented By: KAYLAH ECG Additional Comments: I have independently reviewed and interpreted patient's admitting EKG which revealed: NSR 72 bpm, qtc wnl COVID-19 Results Results COVID-19 Adm Lab Results: RBC 3.49 M/uL (4.20-5.40) L 04/30/24 WBC 8.42 K/ul (4.8-10.8) 04/30/24 Hgb 11.0 g/dl (12.0-16.0) L 04/30/24 Hct 32.8 % (37.0-47.0) L 04/30/24 Plt Count 133 K/uL (130-400) 04/30/24 Neutrophils (%) (Auto) 71.5 % 04/30/24 Lymphocytes (%) (Auto) 17.1 % 04/30/24 Monocytes # (Auto) 0.83 K/uL (0.11-0.59) H 04/30/24 Eosinophils # (Auto) 0.05 K/uL (0.00-0.50) 04/30/24 Immature Granulocyte % (Auto) 0.5 % 04/30/24 Neutrophils # (Auto) 6.03 K/uL (1.40-6.50) 04/30/24 Lymphocytes # (Auto) 1.44 K/uL (1.20-3.40) 04/30/24 Monocytes # (Auto) 0.83 K/uL (0.11-0.59) H 04/30/24 Eosinophils # (Auto) 0.05 K/uL (0.00-0.50) 04/30/24 Basophils # (Auto) 0.03 K/uL (0.00-0.20) 04/30/24 Immature Granulocyte # (Auto) 0.04 K/uL (0.01-0.20) 4 Na 137 mmol/L (136-145) 04/30/24 K 3.4 mmol/L (3.5-5.1) L 04/30/24 Cl 99 mmol/L (98-107) 04/30/24 CO2 32 mmol/L (21-32) 04/30/24 Anion Gap 6 (3-11) 04/30/24 BUN 31 mg/dl (6-23) H 04/30/24 Creatinine 1.16 mg/dl (0.6-1.2) 04/30/24 BUN/Creatinine Ratio 26.7 (10-20) H 04/30/24 Glucose Level 124 mg/dl (70-99(Fasting)) H 04/30/24 Ca 9.1 mg/dl (8.6-10.3) 04/30/24 Total Bilirubin 0.6 mg/dl (0.2-1.0) 04/30/24 AST/SGOT 13 U/L (13-39) 04/30/24 ALT/SGPT 12 U/L (7-52) 04/30/24 Alkaline Phosphatase 43 U/L (34-104) 04/30/24 Total Protein 6.3 gm/dl (6.0-8.3) 04/30/24 Albumin 3.6 gm/dl (3.4-5.0) 04/30/24 Globulin 2.7 gm/dl (2.5-4.0) 04/30/24 Albumin/Globulin Ratio 1.3 (0.9-2) 04/30/24 Adenovirus (PCR) Not Detected (NotDetected) 04/30/24 B. parapertussis DNA (PCR) Not Detected (NotDetected) 04/09 07/30 B. pertussis DNA (PCR) Not Detected (NotDetected) 04/30/24 C. pneumoniae DNA (PCR) Not Detected (NotDetected) 4 Coronavirus Type OC43 (PCR) Not Detected (NotDetected) Coronavirus Type HKU1 (PCR) Not Detected (NotDetected) Coronavirus Type 229E (PCR) Not Detected (NotDetected) COVID-19 PCR DETECTED (NotDetected) A 04/30/24 Coronavirus Type NL63 (PCR) Not Detected (NotDetected) Human Metapneumovirus (PCR) Not Detected (NotDetected) Influenza Virus Type A (PCR) Not Detected (NotDetected) Influenza Virus Type B (PCR) Not Detected (NotDetected) M. pneumoniae (PCR) Not Detected (NotDetected) 04/30/24 Parainfluenza Type 1 (PCR) Not Detected (NotDetected) 04/09 07/30 Parainfluenza Type 2 (PCR) Not Detected (NotDetected) 04/09 07/30 Parainfluenza Type 3 (PCR) Not Detected (NotDetected) 04/09 07/30 Parainfluenza Type 4 (PCR) Not Detected (NotDetected) 04/09 07/30 RSV (PCR) Not Detected (NotDetected) 04/30/24 Enterovirus/Rhinovirus (PCR) Not Detected (NotDetected) Chest X-Ray 04/30/24 Code Status & VTE Plan Code Status FULL CODE VTE Prophylaxis Plan VTE Prophylaxis will be ordered: Yes Supervising Physician Co-Signing Physician Notes Patient seen and examined Reports feeling ill yesterday, with anorexia Had 2 syncopal episodes while trying to use the commode to urinate Denied any chest pain, cough, palpitation, SOB Reports chronic intermittent low abd pain Reports generalized weakness On exam, General: Thin elderly woman, no acute distress Eyes: PERRL, conjunctivae normal, not pale, anicteric sclerae, EOM intact bilaterally ENMT: External ear and nose normal, oropharynx normal Respiratory: Normal respiratory effort, no respiratory distress, lungs clear to auscultation, no crackles and no wheezes Cardiovascular: RRR S1 S2 +murmur Gastrointestinal (Abdomen): Abdomen is not distended, soft, +lower abd tenderness, skin excoriations on abdomen Musculoskeletal: No pedal edema Neurologic: No focal weakness, sensation grossly intact Psychiatric: Alert and oriented x 3 Labs notable for Hb 11, K 3.4 Resp PCR +COVID CXR and Head CT did not show acute abnormalities Abd CT noted mild acute sigmoid diverticulitis, mild left hydronephrosis (unchanged), unchanged descending thoracic/abdominal aortic aneurysm and a 2.7cm right adnexa focus Continue IV cipro and flagyl for mild diverticulitis Considering no resp symptoms, this may be persistent positive COVID test considering patient had COVID in 03/01 and was symptomatic at the time Get Pelvis USS to better assess pelvic abnormality Syncope may be vasovagal or due to dehydration based on hx Get TTE/Carotid doppler Continue IVF Keep on Tele PT/OT/Nutrition consult Agree with plans as detailed by Lucia Guzman PA-C I spent a total of 50 minutes coordinating, documenting and providing care for this patient excluding time spent in performance of separately billed services (1) Syncope Syncope type: unspecified Qualified Code(s): R55 - Syncope and collapse
--- OUTSIDE RECORDS SUMMARY | 2024-04-30 13:23 | External Medical Summary | Summary of Care ---
Author Name Unknown Organization [facility] Address [address] [place] [address] Phone [phone] Care Team Providers Care Wellness Educator Name Role Phone Adriel Whitaker MD Primary Care Provider [phone]- [phone] Reason for Visit * Reason Comments Acute Patient is here with complaints of a rash on her belly that she has had for 3 weeks and was prescribed a cream to use but she feels it did not help- haynes off/on. She also has some congestion, bloody thick mucus from sinuses for the past week. Encounter Details Date Type Department Care Team (Late st Contact Info) Description 04/18/2024 1:00 PM EST Office Visit [facility] [address] [facility] [place] [address] September, Amrik Choi MD [address] [facility] [facility] [place] [id number] Impetigo*; Acute non-recurrent frontal sinusitis Allergies Active Allergy Reactions Criticality Noted Date Comments Cisapride 11/05/1998 diarrhea Doxycycline 11/05/1998 diarrhea Macrolides And Ketolides 05/17/2000 zithromax, diarrhea Salicylates 11/05/1998 intol documented as of this encounter (statuses as of 04/18/2024) Medications Acetaminophen 500 MG Oral Tablet (Tylenol) 2 caps every 8 hours for 3 days, then 1 cap every 4 hours as needed for pain. Do not exceed 3000mg acetaminophen (Tylenol) every 24 hours. 30 Tablet 3 9:54 AM EDT 11/11/19 23 Active Aspirin 81 MG Oral Tablet Chewable Take 1 Tablet by mouth in the morning. 34 Tablet 11 03/02/20 23 Active Pantoprazole Sodium 40 MG Oral Tablet Delayed Release (Protonix)Indic ations:Abdomina l pain, epigastric Take 1 tab twice daily for 4 weeks then take 1 tab daily. 60 Tablet 5 06/02/19 24 Active Additional Information Patient not taking.Reported on 04/18/2024 PARoxetine HCl ER 12.5 MG Oral Tablet Extended Release 24 Hour (Paxil CR) Take 1 Tablet by mouth in the morning. 90 Tablet 3 06/30/19 24 Active traZODone HCl 100 MG Oral Tablet (Desyrel)Indica tions:Insomnia, unspecified type Take 1 Tablet by mouth at bedtime. 90 Tablet 3 07/18/19 24 Active amLODIPine Besylate 5 MG Oral Tablet (Norvasc)Indica tions:Hypertens ion goal BP (blood pressure) < 140/90 Take 1 Tablet by mouth in the morning. 90 Tablet 3 08/15/19 24 Active Carvedilol 3.125 MG Oral Tablet (Coreg) Take 1 Tablet by mouth in the morning and 1 Tablet before bedtime. 204 Tablet 3 08/31/19 24 Active Albuterol Sulfate HFA 108 (90 Base) MCG/ACT Inhalation Aerosol SolutionIndicat ions:COPD, severity to be determined (HCC) Inhale 2 Puffs by mouth every 6 hours as needed for Shortness of Breath. 18 g 5 10/11/19 24 Active Rosuvastatin Calcium 20 MG Oral Tablet (Crestor)Indica tions:Dyslipide mateo, goal LDL below 100 Take 1 Tablet by mouth in the morning. 90 Tablet 3 11/23/19 24 Active Additional Information Patient not taking.Reported on 04/18/2024 Fluticasone Propionate 50 MCG/ACT Nasal Suspension (Flonase) Administer 2 Sprays into nostril daily as needed. 02/25/20 24 Active Docusate Sodium 100 MG Oral Capsule (Colace) Take 1 Capsule by mouth 2 times a day as needed for Constipation. Active Bisacodyl 5 MG Oral Tablet Delayed Release (Dulcolax) Take 1 Tablet by mouth daily as needed for Constipation. Active Famotidine 20 MG Oral Tablet (Pepcid)Indicat ions:Gastroesop hageal reflux disease, unspecified whether esophagitis present Take 1 Tablet by mouth in the morning and 1 Tablet before bedtime. 180 Tablet 3 02/28/20 24 Active Bacitracin 500 UNIT/GM External OintmentIndicat ions:Impetigo Apply topically to affected area 3 times a day. Apply to red lesions on scalp, neck and abdomen until they resolve. 30 g 1 03/26/20 24 024 Active ALPRAZolam 0.25 MG Oral Tablet (xaNAX)Indicati ons:Agoraphobia with panic disorder,Severe anxiety with panic,Controlle d substance agreement signed,Anxiety Take 1 Tablet by mouth 3 times a day as needed for Anxiety. 90 Tablet 04/16/20 24 Active Cephalexin 500 MG Oral CapsuleIndicati ons:Impetigo,Ac inocencia non-recurrent frontal sinusitis Take 1 Capsule by mouth in the morning and 1 Capsule at noon and 1 Capsule before bedtime. Do all this for 7 days. 21 Capsule 04/18/20 24 024 Active Cefuroxime Axetil 250 MG Oral Tablet (Ceftin) Take 1 Tablet by mouth in the morning and 1 Tablet before bedtime. Do all this for 7 days. 14 Tablet 03/07/20 24 024 Discontin ued(Medic ation List Clean Up) documented as of this encounter (statuses as of 04/18/2024) Active Problems Problem Noted Date Diagnosed Date Protein-calorie malnutrition 05/30/2023 Aneurysm of descending thoracic aorta without ru pture 05/30/2023 Moderate episode of recurrent major depressive d isorder 05/30/2023 Severe anxiety with panic 02/04/2023 Cancer of ascending colon 11/10/2022 Adenocarcinoma of colon 11/08/2022 AAA (abdominal aortic aneurysm) 08/24/2022 Overview (08/24/2022): 4.0 cm AAA noted on Screening US 08/17/22 H/O dysplastic nevus 08/17/2022 Overview (08/17/2022): Focal atypical nevus (L upper back 08/29), [...] as of this encounter (statuses as of 04/18/2024) Resolved Problems Problem Noted Date Diagnosed Date Resolved Date Post-op pain 11/11/2022 04/25/2023 Encounter for deep vein thro mbosis (DVT) prophylaxis 11/11/2022 04/25/2023 Encounter for deep vein thro mbosis (DVT) prophylaxis 11/10/2022 04/25/2023 Pulsatile tinnitus of right ear 09/20/2017 02/08/2019 Elevated blood pressure, situational 08/16/2017 09/20/2017 Breast cancer screening 12/09/201402/06 Anxiety 12/09/2014 02/08/2019 Overweight (BMI 25.0-29.9) 10/08/2013 0 08/16/2017 Overview (10/08/2013): BMI= 26.47 10/08/13 Screen for colon cancer 10/08/201302/06 Other screening mammogram 10/08/2013 Acute sinusitis 07/21/2010 12/09/2014 HTN, goal below 130/80 09/05/200907/21 TICK BITE, LEFT CHEST 09/23/20082014 Toxic effect of venom 09/23/20082014 Overview (02/10/2016): ICD-10 update of inactive term Headache 09/23/2008 12/09/2014 Overview (07/30/2015): ICD-10 update of inactive term Obsessive-compulsive disorder 07/24/2008 12/09/2014 Acute bronchitis, antibiotics not indicated 11/15/2006 07/04/2008 Overview (07/04/2008): Resolved per Benign Acute Dxs Protocol #3 Cough 11/15/2006 12/09/2014 CHRONIC TOBACCO MUCOSITIS 11/15/2006 Dysfunction of eustachian tube 11/15/2006 12/09/2014 Tobacco use disorder 11/15/2006 015 Agoraphobia 05/11/2005 02/08/2019 Overview (05/11/2005): dx'd via psychologist 04/12 ADVANCE DIRECTIVE INFORMATION 03/11/2005 12/09/2014 Overview (03/11/2005): No, Advance Directive brochure given to patient. Other specified pruritic conditions 04/16/2004 02/06/2018 Overview (04/16/2004): seen by Dr. Martinez 2004 - treated with Protopic GENERALIZED ANXIETY DIS 02/25/2003 0807/2014 HTN, goal below 140/90 05/31/200209/05 Dyslipidemia, goal to be determined 08/25/2001 09/05/2009 Reflux esophagitis 5 PREMENSTRUAL TENSION 015 HTN, goal below 140/90 08/16 documented as of this encounter (statuses as of 04/18/2024) Immunizations Name Administration Dates Next Due Pneumococcal Conjugate Vacc, 13 Valent (Prevnar) 03/08/2018 Pneumococcal Polysaccharide PPV23 (Pneumovax) 10/13/2006 Seasonal Influenza Vac., MDV , IM, 0.5 mL (Fluzone) 01/31/2014,03/08/2011,02/07/2010,03/11 Seasonal Influenza, High Dos e, Trivalent, PF, IM (Fluzone HD) 04/03/2024 Seasonal Influenza, PF, 6 M & above, IM , (FluLaval or Fluzone) 04/05/2023,02/12/2021,01/17/2020,02/08,02/06/2018 Seasonal Influenza, Quadriva lent Hd (Fluzone Hd) 01/28/2022 Seasonal Influenza, Quadriva lent, No Preserve, IM 02/17/2016,02/22/2015 TDAP (age 10 and older)(Boostrix) 10/18/2013 documented as of this encounter Social History Tobacco Use Types Packs/Day Years Used Date Smoking Tobacco: Every Day Cigarettes 1 37 Smokeless Tobacco: Never Comments:began at age 27 States smoking 5 cigs/day as of 08/31/23 Alcohol Use Standard Drinks/Week Comments No 0 (1 standard drink = 0.6 oz pur e alcohol) none PHQ-2 Answer Date Recorded PHQ Adult Total Score 0 03/01/2024 Comments No Sex and Gender Information Value Date Recorded Sex Assigned at Female 06/30/2022 11:12 AM EST Legal Sex Female 5:57 AM EST Gender Identity Female 06/30/2022 11:12 AM EST Sexual Orientation Straight 06/30/2022 11 :12 AM EST 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 Answer Date of Assessment Author No 11/08/2022 3:05 PM Carine Cole RN * Are you blind or do you have serious difficulty seeing, even when wearing glasses? Answer Date of Assessment Author No 11/08/2022 3:05 PM Carine Cole RN * Do you have serious difficulty walking or climbing stairs? (5 years old or older) Answer Date of Assessment Author No 11/08/2022 3:05 PM Carine Cole RN * Do you have difficulty dressing or bathing? (5 years old or older) Answer Date of Assessment Author No 11/08/2022 3:05 PM Carine Cole RN * Because of a physical, mental, or emotional condition, do you have difficulty doing errands alone such as visiting a doctors office or shopping? (15 years old or older) Answer Date of Assessment Author No 11/08/2022 3:05 PM Carine Cole RN documented as of this encounter Mental Status * Because of a physical, mental, or emotional condition, do you have serious difficulty concentrating, remembering, or making decisions? (5 years old or older) Answer Entry Date Author No 11/08/2022 3:05 PM Carine Cole RN documented in this encounter Progress Notes * Amrik Draper MD - 04/18/2024 1:04 PM EST Images from the original note were not included. Assessment and Plan Suspect partially treated impetigo. Start keflex. Discussed supportive care with otc medications. Reassurance provided that this does not appear to be scabies. 1. Impetigo (Primary) - Cephalexin 500 MG Oral Capsule; Take 1 Capsule by mouth in the morning and 1 Capsule at noon and 1 Capsule before bedtime. Do all this for 7 days. Dispense: 21 Capsule; Refill: 0 2. Acute non-recurrent frontal sinusitis - Cephalexin 500 MG Oral Capsule; Take 1 Capsule by mouth in the morning and 1 Capsule at noon and 1 Capsule before bedtime. Do all this for 7 days. Dispense: 21 Capsule; Refill: 0 Wrap-Up Follow up as needed. History of Present Illness The patient is a 73-year-old female with past medical history of COPD dyslipidemia, essential hypertension, GERD, tobacco use, history of colon cancer who presents for acute. Patient presents for multiple issues. Was seen in mid March and diagnosed with intertrigo. Instructed to use bacitracin. Some improvement but left lower quadrant abdominal rash remains with some scabbing. Also dealing with 7-10 days of nasal congestion. No fevers. No sore throat. No nausea/vomiting/diarrhea. Physical Exam Vitals: 04/18/24 1258 Temp: 97.7 F (36.5 C) Pulse: 79 Resp: 24 SpO2: 99% BP: 106/76 Physical Exam Physical Exam Vitals reviewed. Constitutional: General: She is not in acute distress. HENT: Nose: Congestion present. Mouth/Throat: Pharynx: No oropharyngeal exudate or posterior oropharyngeal erythema. Cardiovascular: Rate and Rhythm: Normal rate and regular rhythm. Heart sounds: No murmur heard. Pulmonary: Effort: Pulmonary effort is normal. No respiratory distress. Breath sounds: Normal breath sounds. Musculoskeletal: Cervical back: Neck supple. Lymphadenopathy: Cervical: No cervical adenopathy. Skin: Comments: Erythematous and indurated patches on the left lower quadrant of the abdomen. Neurological: General: No focal deficit present. Mental Status: She is alert. This note has been completed in part utilizing [employer] Speech Voice Recognition Software. Due to technical limitations of the software, grammatical errors, random word insertions, prounoun errors, and incomplete sentences may occur. Any formal questions or concerns about the content, text, or information contained within the body of this dictation should be directly addressed to the provider for clarification. documented in this encounter Nursing Notes * Yudelka Graves LPN - 04/18/2024 12:57 PM EST The patient has been properly identified by confirmation of name and date of . Chief Complaint Patient presents with Acute Patient is here with complaints of a rash on her belly that she has had for 3 weeks and was prescribed a cream to use but she feels it did not help- haynes off/on. She also has some congestion, bloodythick mucus from sinuses for the past week. documented in this encounter Plan of Treatment Upcoming Encounters Date Type Department Care Team (Late st Contact Info) Description 05/03/2024 9:00 AM EST Office Visit [facility] [place] [address] [place] [phone] Adriel Whitaker MD [address] [facility] [place] [id number] 08/08/2024 11:00 AM EDT Office Visit Hematology/Oncology [facility] [address] [facility] [place] [phone] Yosvany Moe MD [address] [facility] [place] [address] 09/05/2024 8:30 AM EDT Cardiac Studies Cardiac Studies, [facility] [address] [facility] [place] [address] Scheduled Procedures Name Priority Associated Diagnoses Date/Ti [...] Comments DISCUSS TOBACCO CESSATION (REFER TO SMARTSET #3770) 1952 Alpha-1 Antitrypsin 1970 Hepatitis C Screening 1970 Cologuard 1997 Fecal Occult Blood Test 1997 Sigmoidoscopy 1997 Zoster Vaccines (1 of 2) 2002 DXA Scan 12/25/2005 12/25/1998 Mammogram 02/11/2017 02/12/2016, 08/29/2012 Adult Wellness Visit 2018 Pneumococcal Vaccine: 65+ Years (3 of 3 - PPSV23 or PCV20) 03/08/2019 03/08/2018, 10/13/2006, 03/04/1994 DTap/Tdap Vaccines (2 - Td or Tdap) 10/19/2023 10/18/2013, 05/09/1990, 05/09/1990 COVID-19 Vaccine (4 - season) 2024 04/01/2021, 07/22/2020, 07/01/2020 Depression Monitoring 03/01/2025 03/01/2024 GFR 04/03/2025 04/03/2024, 11/06, 07/20/2023, Additional history exists O2 ASSESSMENT COMPLETED IN PAST YEAR FOR COPD 04/18/2025 04/18/2024 Albumin/Creatinine Ratio 11/04/2025 11/04/2022, 01/0 10/2011 Lipid Panel 11/20/2028 11/21/2023, 10/08, 09/18/2021, Additional history exists Colonoscopy 09/24/2032 09/24/2022, 09/24/2022 Colorectal Cancer Screening 09/24/2032 Lung Cancer Screening Completed 11/21/2023 Influenza Vaccine (FLU shot) Completed , 04/05/2023, 01/28/2022, Additional history exists HPV (Gardasil) Vaccine Aged Out No lo [...] as of this encounter Visit Diagnoses Diagnosis Impetigo- Primary Acute non-recurrent frontal sinusitis documented in this encounter Advance Directives * Full Code (Latest Code Status on File) Date Activated Date Inactivated Comments 11/08/2022 11:27 AM 11/11/2022 4:51 PM Question Answer Comments Discussion of Advance Directives occurred with: Patient Care Teams Wellness Educator Relationship Specialty Start Date End Date Adriel Whitaker MD [address] [place] [address] PCP - General Family Medicine 10/20/17 documented as of this encounter
--- OUTSIDE RECORDS SUMMARY | 2024-04-30 13:23 | External Medical Summary | Summary of Care ---
Author Name Unknown Organization [facility] Address [address] [place] [address] Phone [phone] Care Team Providers Care Mailroom Coordinator Name Role Phone Adriel Whitaker MD Primary Care Provider [phone]- [phone] Reason for Visit * Reason Onset Date Comments Med Request 04/26/2024 Encounter Details Date Type Department Care Team (Late st Contact Info) Description 04/26/[address] [address] Adriel Whitaker MD [address] [place] [address] Med Request Allergies Active Allergy Reactions Criticality Noted Date Comments Cisapride 11/05/1998 diarrhea Doxycycline 11/05/1998 diarrhea Macrolides And Ketolides 05/17/2000 zithromax, diarrhea Salicylates 11/05/1998 intol documented as of this encounter (statuses as of 04/26/2024) Medications Acetaminophen 500 MG Oral Tablet (Tylenol) 2 caps every 8 hours for 3 days, then 1 cap every 4 hours as needed for pain. Do not exceed 3000mg acetaminophen (Tylenol) every 24 hours. 30 Tablet 11/11/2022 9:54 AM EDT 3 Active Aspirin 81 MG Oral Tablet Chewable Take 1 Tablet by mouth in the morning. 34 Tablet 11 3 Active Pantoprazole Sodium 40 MG Oral [...] mouth in the morning. 90 Tablet 3 4 Active traZODone HCl 100 MG Oral Tablet (Desyrel)Indica tions:Insomnia, unspecified type Take 1 Tablet by mouth at bedtime. 90 Tablet 3 4 Active amLODIPine Besylate 5 MG Oral Tablet (Norvasc)Indica tions:Hypertens ion goal BP (blood pressure) < 140/90 Take 1 Tablet by mouth in the morning. 90 Tablet 3 4 Active Carvedilol 3.125 MG Oral Tablet (Coreg) Take 1 Tablet by mouth in the morning and 1 Tablet before bedtime. 204 Tablet 3 4 Active Albuterol Sulfate HFA 108 (90 Base) MCG/ACT Inhalation Aerosol SolutionIndicat ions:COPD, severity to be determined (HCC) Inhale 2 Puffs by mouth every 6 hours as needed for Shortness of Breath. 18 g 5 4 Active Rosuvastatin Calcium 20 MG Oral Tablet (Crestor)Indica tions:Dyslipide mateo, goal LDL below 100 Take 1 Tablet by mouth in the morning. 90 Tablet 3 4 Active Additional Information Patient not taking.Reported on 04/18/2024 Fluticasone Propionate 50 MCG/ACT Nasal Suspension (Flonase) Administer 2 Sprays into nostril daily as needed. 4 Active Docusate Sodium 100 MG Oral Capsule [...] Tablet before bedtime. 180 Tablet 3 4 Active ALPRAZolam 0.25 MG Oral Tablet (xaNAX)Indicati ons:Agoraphobia with panic disorder,Severe anxiety with panic,Controlle d substance agreement signed,Anxiety Take 1 Tablet by mouth 3 times a day as needed for Anxiety. 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 Draper regarding the need for an appointment forpatients rash to be reexamined and she agreed to this so I transferred her out front to be scheduled. Thank you. * Telephone Encounter - Amrik Draper MD - 04/26/2024 2:35 PM EST Should be reevaluated in office so that rash can again be examined. Amrik Draper MD * Telephone Encounter - Hi Yao special library librarian - 04/26/2024 11:18 AM EST Pt calling stating that the medication she was given for the rash and nasal congestion have not helped. Pt states that symptoms are still present and have only improved "a little bit, not much". Still states no nausea/vomiting/diarrhea/fever/sore throat . Please advise Pt of next steps. Pt can be reached at [phone]. Thank you, Hi Yao Traffic Worker [facility] 04/26/2024,11:23 AM documented in this encounter Plan of Treatment Upcoming Encounters Date Type Department Care Team (Late st Contact Info) Description 08/08/2024 11:00 AM EDT Office Visit Hematology/Oncology [facility] [address] [facility] [place] [phone] Yosvany Moe MD [address] [facility] [place] [address] 09/05/2024 8:30 AM EDT Cardiac Studies Cardiac Studies, [facility] [address] [place] [address] Scheduled Procedures Name Priority Associated Diagnoses Date/Ti [...] Comments DISCUSS TOBACCO CESSATION (REFER TO SMARTSET #6253) 1952 Alpha-1 Antitrypsin 1970 Hepatitis C Screening [...] COPD 04/18/2025 04/18/2024 Albumin/Creatinine Ratio 11/04/2025 11/04/2022, 10/2011 Lipid Panel [...] Advance Directives occurred with: Patient Care Teams Mailroom Coordinator Relationship Specialty Start Date End Date Adriel Whitaker MD PCP - General Family Medicine 10/20/17 documented as of this encounter
--- OUTSIDE RECORDS SUMMARY | 2024-04-30 13:24 | External Medical Summary | Summary of Care ---
Author Name Unknown Organization [facility] Address [address] [place] [address] Phone [phone] Care Team Providers Care Forestry Technician Name Role Phone Adriel Whitaker MD Primary Care Provider [phone] Reason for Referral * Evaluate & Treat - Unlimited Visits (Within 30 days (routine)) - Authorized Specialty Diagnoses / Procedures Referred By Contact Referred To Contact Cardiovascular Medicine / Cardiology Diagnoses Hypertrophic cardiomyopathy (HCC) Martin Ko DO [address] [place] [address] Darell Engel MD [address] [place] [address] Referral ID Status Reason Start Date Expiration Date Visits Requested Visits Authorized [id number] Authorized Specialty Services Required 4 999 999 Question Answer Referral Priority Within 30 days (routine) Where should this appointment be scheduled? [facility] To which of the following clinics are you referring your patient? [facility] Comments MRI evidence of HCM involving the basal septum * [facility] ([facility]) (Within 10 days (routine)) - Authorized Specialty Diagnoses / Procedures Referred By Haider t Referred To Contact Cardiac Studies Diagnoses Hypertrophic cardiomyopathy (HCC) LVH (left ventricular hypertrophy) Procedures ECHO, COMPLETE (2D), TRANS-THORACIC Martin Ko DO [address] [place] [address] Referral ID Status Reason Start Date Expiration Date V isits Requested Visits Authorized [id number] Authorized Precert 09/05/2024 999 999 Reason for Visit * Reason Comments Follow Up Encounter Details Date Type Department Care Team (Latest Contact Info) Description 03/07/2024 8:30 AM EDT Office Visit Cardiology, [facility] [address] [place] [address] Martin Ko DO [address] [place] [address] Hypertrophic cardiomyopathy (HCC)*; LVH (left ventricular hypertrophy); Essential hypertension with goal blood pressure less than 130/80; Asymptomatic stenosis of left carotid artery; Dyslipidemia, goal LDL below 70 Allergies Active Allergy Reactions Criticality Noted Date Comments Cisapride 11/05/1998 diarrhea Doxycycline 11/05/1998 diarrhea Macrolides And Ketolides 05/17/2000 zithromax, diarrhea Salicylates 11/05/1998 intol documented as of this encounter (statuses as of 03/07/2024) Medications Medication Sig Dispensed Refills Start Date End Date Status Acetaminophen 500 MG Oral Tablet (Tylenol) 2 caps every 8 hours for 3 days, then 1 cap every 4 hours as needed for pain. Do not exceed 3000mg acetaminophen (Tylenol) every 24 hours. 30 Tablet 11/10/2022 Active Aspirin 81 MG Oral Tablet Chewable [...] the morning. 90 Tablet 3 11/23/2023 Active Additional Information Patient not taking.Reported on 03/07/2024 Fluticasone Propionate 50 MCG/ACT Nasal Suspension (Flonase) Administer 2 Sprays into nostril daily as needed. 02/25/2024 Active Docusate Sodium 100 MG Oral Capsule (Colace) Take 1 Capsule by mouth 2 times a day as needed for Constipation. Active Bisacodyl 5 MG Oral Tablet Delayed Release (Dulcolax) Take 1 Tablet by mouth daily as needed for Constipation. Active ALPRAZolam 0.25 MG Oral Tablet (xaNAX)Indicatio ns:Agoraphobia with panic disorder,Severe anxiety with panic,Controlled substance agreement signed,Anxiety Take 1 Tablet by mouth 3 times a day as needed for Anxiety. 90 Tablet 02/28/2024 Active Famotidine 20 MG Oral Tablet (Pepcid)Indicati ons:Gastroesopha geal reflux disease, unspecified whether esophagitis present Take 1 Tablet by mouth in the morning and 1 Tablet before bedtime. 180 Tablet 3 02/28/2024 Active Albuterol Sulfate HFA 108 (90 Base) MCG/ACT Inhalation Aerosol Solution 01/12/2023 4 Discontinue d(Medicatio n List Clean Up) Cefuroxime Axetil 250 MG Oral Tablet (Ceftin) Take 1 Tablet by mouth in the morning and 1 Tablet before bedtime. 02/25/2024 4 Discontinue d(End of Procedure) documented as of this encounter (statuses as of 03/07/2024) Active Problems Problem Noted Date Diagnosed Date [...] as of this encounter (statuses as of 03/07/2024) Resolved Problems Problem Noted Date Diagnosed Date [...] as of this encounter (statuses as of 03/07/2024) Immunizations Name Administration Dates Next Due Pneumococcal Conjugate Vacc, 13 Valent (Prevnar) 03/08/2018 Pneumococcal Polysaccharide PPV23 (Pneumovax) 10/13/2006 Seasonal Influenza Vac., MDV , IM, 0.5 mL (Fluzone) 01/31/2014,03/08/2011,02/07/2010,03/11 Seasonal Influenza, PF, 6 M & above, [...] Recorded PHQ Adult Total Score 0 03/01/2024 Utilities Answer Date Recorded Do you have [...] Sign Reading Time Taken Comments Blood Pressure 118/82 03/07/2024 8:30 AM EDT Pulse 92 03/07/2024 8:30 AM EDT Temperature - - Respiratory Rate 18 03/07/2024 8:30 AM EDT Oxygen Saturation - - Inhaled Oxygen Concentration - - Weight 44 kg (96 lb 14.4 oz) 03/07/2024 8:30 AM EDT Height - - Body Mass Index 15.64 03/01/2024 11:15 AM EDT documented in this encounter Functional Status [...] Progress Notes * Martin Ko DO - 03/07/2024 8:32 AM EDT SUBJECTIVE: Patient returns today for follow up of cardiac MRI demonstrating hypertrophic cardiomyopathy involving the basal septum, labile hypertension, severe concentric left ventricular hypertrophy, chronic left internal carotid artery occlusion, dyslipidemia, and palpitations. Recently hospitalized due to COVID-19 infection and metabolic encephalopathy. Continues to note brain fog. Smoking 2 cigarettes per day. Recently discontinued rosuvastatin due to ongoing abdominal discomfort. Denies chest pain or unusual shortness of breath. No lightheadedness, dizziness, syncope, or near syncope. Cardiac MRI report October 04, 2023: 1. [...] This corresponds to diffuse elevation of the nez perce T1 parametric mapping times throughout the myocardium. [...] 4. Other incidental findings as detailed above. Carotid duplex report December 28, 2023: Right carotid artery duplex examination indicates evidence of less than 50% stenosis of the internal carotid artery. Left carotid artery duplex examination indicates evidence of a known occlusion of the internal carotid artery. ROS: All others negative other than those [...] Current Outpatient Medications Medication Sig Dispense Refill Acetaminophen 500 MG Oral Tablet (Tylenol) 2 caps every 8 hours for 3 days, then 1 cap every 4 hours as needed for pain. Do not exceed 3000mg acetaminophen (Tylenol) every 24 hours. 30 Tablet 0 Albuterol Sulfate HFA 108 (90 Base) MCG/ACT Inhalation Aerosol Solution Aspirin 81 MG Oral Tablet Chewable Take 1 Tablet by mouth in the morning. 34 Tablet 11 Pantoprazole Sodium 40 MG Oral Tablet Delayed Release (Protonix) Take 1 tab twice daily for 4 weeksthen take 1 tab daily. (Patient not taking: Reported on 12/30/2023) 60 Tablet 5 PARoxetine HCl ER 12.5 [...] mouth in the morning. 90 Tablet 3 Fluticasone Propionate 50 MCG/ACT Nasal Suspension (Flonase) Administer 2 Sprays into nostril dailyas needed. Cefuroxime Axetil 250 MG Oral Tablet (Ceftin) Take 1 Tablet by mouth in the morning and 1 Tablet before bedtime. Docusate Sodium 100 MG Oral Capsule (Colace) Take 1 Capsule by mouth 2 times a day as needed for Constipation. Bisacodyl 5 MG Oral Tablet Delayed Release (Dulcolax) Take 1 Tablet by mouth daily as needed for Constipation. ALPRAZolam 0.25 MG Oral Tablet (xaNAX) Take 1 Tablet by mouth 3 times a day as needed for Anxiety. 90 Tablet 0 Famotidine 20 MG Oral Tablet (Pepcid) Take 1 Tablet by mouth in the morning and 1 Tablet before bedtime. 180 Tablet 3 No current facility-administered medications for this visit. [...] 0 <=0 /100 WBCs OBJECTIVE/PHYSICAL EXAMINATION: BP 118/82 (BP Site: Left Arm, BP Position: Sitting, BP Cuff Size: Regular) | Pulse 92 | Resp 18 | Wt 44 kg (96 lb 14.4 oz) | BMI 15.64 kg/m | BSA 1.43 m General: NAD, AAO x3, well nourished. HEENT: [...] cardiomyopathy involving the base of the anteroseptum. -no significant LVOT gradient 2. Chronic asymptomatic LICA occlusion 3. Dyslipidemia - uncontrolled, simvastatin transitioned to rosuvastatin 11/2023 (intolerance to atorvastatin documented) - recently discontinued rosuvastatin due to ongoing abdominal discomfort 4. 3.8cm descending thoracic aortic aneurysm, 3.0 cm abdominal aortic aneurysm. -followed by vascular surgery 5. 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 Adenocarcinoma of the colon status post colon resection. Lymph nodes negative for metastatic disease. 7. Ongoing tobacco abuse PLAN: Cardiology referral op Echo, complete (2d), trans-thoracic Cardiac MRI results demonstrating hypertrophic cardiomyopathy of the basal anterior septum reviewed. Recommend genetic testing and further evaluation with a hypertrophic cardiomyopathy clinic in [place]. Patient declines genetic testing. Somewhat hesitant to proceed with additional consultation atthis time. She will discuss further with family prior to making final decision. Repeat 2D transthoracic echocardiogram in 6 months. Encouraged compliance with current cardiovascular medications. Patient agreeable to restart rosuvastatin. Continue other cardiovascular medications including low-dose aspirin, losartan, amlodipine, and carvedilol. Smoking cessation advised. All questions answered to satisfaction of both the patient and her daughter. Follow Up: Return in about 6 months (around 09/05/2024). I spent a total of 30-39 minutes (exact time 30 mins) on the date of service in preparation, delivery, and documentation of the care provided to Faith Chavis excluding any time spent in the performance of separately billed services. Martin Ko DO, [facility] Associate [facility] - [facility] documented in this encounter Nursing Notes * Caro Dickinson CMA - 03/07/2024 8:35 AM EDT Examination Room: 13 Name: Faith Chavis Date of : (1950). Reason for Visit: 6M f/u Interim Hospitalization(s): [facility] Dec & Feb Problems/Concerns: Pounding sensation in upper abdomen. Still has lightheadedness but states no worse than normal. 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 Chest Pain/SOB: Denies CP or unusual SOB. Still has somewhat of a productive cough from COVID infection. [facility] Discussed: Not applicable My [facility] is a way you can talk to your provider online through e-mail. Would you like to sign up? I can activate it for you? ALREADY ACTIVE Patient was instructed to not get up on the exam table until directed and assisted by their provider; patient is to remain seated in the chair/ wheelchair/ exam table for fall prevention and safety reasons. Patient is aware to have assistance to step down off exam table with personnel. Patient voiced full comprehension of instructions. documented in this encounter Plan of Treatment Upcoming Encounters Date Type Department Care Team (Late st Contact Info) Description 04/03/2024 11:00 AM EST Office Visit Hematology/Oncology [facility] [address] [place] [id number] Yosvany Moe MD [address] [place] [address] 05/03/2024 9:00 AM EST Office Visit [facility] [address] [place] [id number] Adriel Whitaker MD [address] [place] [address] 09/05/2024 8:30 AM EDT Cardiac Studies Cardiac Studies, [facility] [address] [place] [address] Scheduled Orders Name Type Priority Associated Diagnoses Orde r Schedule ECHO, COMPLETE (2D), TRANS-THORACIC Echocardiology Routine Hypertrophic cardiomyopathy (HCC) LVH (left ventricular hypertrophy) Expected: 09/05/2024 (Approximate), Expires: 04/07/2026 Scheduled Procedures Name Priority Associated Diagnoses Date/Ti [...] r Schedule CARDIOLOGY REFERRAL OP Referral Within 30 days (routine) Hypertrophic cardiomyopathy (HCC) Ordered: 03/07/2024 Health Maintenance Due Date Last Done Comments DISCUSS TOBACCO CESSATION (REFER TO [facility] #[id number]) 1950 Alpha-1 Antitrypsin 1970 Hepatitis C Screening [...] 11/20/2024 11/21/2023, 07/07, 04/05/2023, Additional history exists Depression Monitoring 03/01/2025 03/01/2024 O2 ASSESSMENT COMPLETED IN PAST YEAR FOR COPD 03/01/2025 03/01/2024 Albumin/Creatinine Ratio 11/04/2025 11/04/2022, 10/2011 Lipid Panel [...] as of this encounter Visit Diagnoses Diagnosis Hypertrophic cardiomyopathy (HCC)- Primary Other hypertrophic cardiomyopathy LVH (left ventricular hypertrophy) Cardiomegaly Essential hypertension with goal blood pressure less than 130/80 Asymptomatic stenosis of left carotid artery Dyslipidemia, goal LDL below 70 Other and unspecified hyperlipidemia documented in this encounter Advance Directives * Full Code (Latest Code Status on File) Date Activated Date Inactivated Comments 11/08/2022 11:27 AM 11/11/2022 4:51 PM Question Answer Comments Discussion of Advance Directives occurred with: Patient Care Teams Forestry Technician Relationship Specialty Start Date End Date Adriel Whitaker MD [address] [place] [address] PCP - General Family Medicine 10/20/17 documented as of this encounter"
--- OUTSIDE RECORDS SUMMARY | 2024-04-30 13:24 | External Medical Summary | Summary of Care ---
Author Name Unknown Organization [facility] Address [address] [place] [address] Phone [phone] Care Team Providers Care Part Time Name Role Phone Adriel Whitaker MD Primary Care Provider +1- [phone] Reason for Visit * Reason Onset Date Comments Follow Up 4 month follow u p Medication Administration 04/03/2024 Flu an d/or Pneumo Inj Encounter Details Date Type Department Care Team (Late st Contact Info) Description 04/03/2024 11:00 AM EST Office Visit Hematology/Oncology [facility] [address] [facility] [place] [phone] Yosvany Moe MD [address] [facility] [place] [address] Adenocarcinoma of colon (HCC)*; Need for prophylactic vaccination and inoculation against influenza Allergies Active Allergy Reactions Criticality Noted Date Comments Cisapride 11/05/1998 diarrhea Doxycycline 11/05/1998 diarrhea Macrolides And Ketolides 05/17/2000 zithromax, diarrhea Salicylates 11/05/1998 intol documented as of this encounter (statuses as of 04/03/2024) Medications Acetaminophen 500 MG Oral Tablet (Tylenol) [...] Active Additional Information Patient not taking.Reported on 03/26/2024 PARoxetine HCl ER 12.5 MG Oral Tablet [...] Active Additional Information Patient not taking.Reported on 03/26/2024 Fluticasone Propionate 50 MCG/ACT Nasal Suspension (Flonase) Administer 2 Sprays into nostril daily as needed. 4 Active Docusate Sodium 100 MG Oral Capsule (Colace) Take 1 Capsule by mouth 2 times a day as needed for Constipation. Active Bisacodyl 5 MG Oral Tablet Delayed Release (Dulcolax) Take 1 Tablet by mouth daily as needed for Constipation. Active ALPRAZolam 0.25 MG Oral Tablet (xaNAX)Indicati ons:Agoraphobia with panic disorder,Severe anxiety with panic,Controlle d substance agreement signed,Anxiety Take 1 Tablet by mouth 3 times a day as needed for Anxiety. 90 Tablet 4 Active Famotidine 20 MG Oral Tablet (Pepcid)Indicat ions:Gastroesop hageal reflux disease, unspecified whether esophagitis present Take 1 Tablet by mouth in the morning and 1 Tablet before bedtime. 180 Tablet 3 4 Active Bacitracin 500 UNIT/GM External OintmentIndicat ions:Impetigo Apply topically to affected area 3 times a day. Apply to red lesions on scalp, neck and abdomen until they resolve. 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 on file Not on file Not on file documented as of this encounter Last Filed Vital Signs Vital Sign Reading Time Taken Comments Blood Pressure 120/78 04/03/2024 10:58 AM EST Pulse 84 04/03/2024 10:58 AM EST Temperature 36.5 C (97.7 F) 04/03/2024 10:[address] Respiratory Rate - - Oxygen Saturation 96% 04/03/2024 10:58 AM EST Inhaled Oxygen Concentration - - Weight 44.4 kg (97 lb 12.8 oz) 04/03/2024 10:58 AM EST Height - - Body Mass Index 15.79 03/26/2024 2:39 PM EST documented in this [...] Carine Cole RN documented in this encounter Patient Instructions * Patient Instructions* Malena Sandoval CMA - 04/03/2024 11:31 AM EST ~~PATIENT INSTRUCTIONS FOR FLU SHOT~~ Possible side effects of influenza vaccine, (flu shot), are usually mild and include: 1. Soreness or redness at injection site 2. Low grade fever 3. Body aches You may use Tylenol/Acetaminophen as needed for these symptoms. LET YOUR DOCTOR KNOW IMMEDIATELY IF YOU HAVE DIFFICULTY BREATHING OR SWALLOWING, EXPERIENCE ITCHINGOF FEET OR HANDS, HAVE SWELLING OF EYES, FACE OR INSIDE OF NOSE. documented in this encounter Progress Notes * Malena Sandoval CMA - 04/03/2024 11:29 AM EST PRE - ADMINISTRATION DOCUMENTATION Malena Sandoval CMA, 04/03/2024 11:29 AM Immunization Administration Documentation Time Out Procedure Performed: Yes Patient Identified (Ask Name/Date of ): Yes Does the patient have a fever greater than 101 degrees today? No Patient allergic to latex? No VFC Stock: Yes, Does this patient qualify for immunization through the VFC program because he/she (check only one): Yes-is enrolled in Medicaid Immunization(s) verified: Yes, Immunization Name: Flu, VIS Sheet(s) given: Yes Verified Side and Site: Yes Verified Shot(s) with Parent(s)/Patient: Yes * Yosvany Moe MD - 04/03/2024 10:58 AM EST Outpatient Consult Note Data Source: Patient, Epic record. Data Source: Patient, Epic record. 04/03/2024 10:58 AM Faith Chavis [id number] 73 year old Patient Encounter: HEMATOLOGY/ONCOLOGY [facility] Cancer Diagnosis: Colonic mass, biopsy consistent with [...] Category pT3 pN Category pN0 Interval History: She continues to have issues of occasional abdominal pain. Denies any headache, blurred vision, chest pain, palpitation, change in the bowel habits, bleeding, bruising, hematuria, hematochezia. LABS/IMAGING: Results for orders placed or performed in visit on 11/21/23 COMPREHENSIVE METABOLIC PANEL Result Value Ref Range BUN 19 6 - 20 mg/dL CREATININE 0.9 0.5 - 1.0 mg/dL EGFR 71 >=60 mL/min SODIUM 140 135 - 146 mmol/L POTASSIUM 3.7 3.5 - 5.1 mmol/L CHLORIDE 98 98 - 107 mmol/L CO2 27 22 - 32 mmol/L ANION GAP 15 7 - 15 mmol/L GLUCOSE 98 70 - 120 mg/dL Albumin 4.6 3.8 - 5.0 g/dL AST 24 10 - 35 U/L Alkaline Phosphatase 72 35 - 130 U/L Bilirubin, Total 0.5 <=1.2 mg/dL CALCIUM 9.7 8.4 - 10.2 mg/dL Protein 7.4 [...] of extracted DNA, whole blood and/or serum. Last blood test were done on 11/20/2023 and they all were in acceptable range. Last CT scan of the chest abdomen pelvis were done on 07/25/2023 and it was negative for metastaticdisease or recurrent disease. Last CT scan of chest was done on 11/21/2023 which shows resolution of the previously noted left lower lobe nodule and there were no new nodules. REVIEW OF SYSTEMS: General: No Fever, chills, night sweats, or weight loss. HEENT: No change in visual acuity, blurred or double vision. No epistaxis, facial pain, nasal discharge or change in hearing. Denies dysphagia, no muscosal ulceration, or sores noted. Cardiovascular: No chest pain, LEIJA, or palpitations Respiratory: No shortness of breath, cough, hemoptysis, or pleuritic chest pain Gastrointestinal: Occasional abdominal pain, nausea, No vomiting, diarrhea, rectal pain or bleeding Genitourinary: [...] (Tylenol) every 24 hours. 30 Tablet 0 Aspirin 81 MG Oral Tablet Chewable Take 1 Tablet by mouth in the morning. 34 Tablet 11 Pantoprazole Sodium 40 MG Oral Tablet Delayed Release (Protonix) Take 1 tab twice daily for 4 weeksthen take 1 tab daily. (Patient not taking: Reported on 03/26/2024) 60 Tablet 5 PARoxetine HCl ER 12.5 [...] 1 Tablet by mouth in the morning. (Patient not taking: Reported on 03/26/2024) 90 Tablet 3 Fluticasone Propionate 50 MCG/ACT Nasal Suspension (Flonase) Administer 2 Sprays into nostril dailyas needed. (Patient not taking: Reported on 03/26/2024) Docusate Sodium 100 MG Oral Capsule (Colace) [...] 1 Tablet before bedtime. 180 Tablet 3 Bacitracin 500 UNIT/GM External Ointment Apply topically to affected area 3 times a day. Apply to red lesions on scalp, neck and abdomen until they resolve. 30 g 1 No current facility-administered medications for this visit. [...] diarrhea Salicylates intol PHYSICAL EXAMINATION: General Appearance: Healthy appearing patient in no acute distress There were no vitals taken for this visit. Vitals reviewed. HEENT: No oral or pharyngeal [...] Extremeties: Good pulses bilaterally, no peripheral edema. ASSESSMENT: 73-year-old female with history of hypertension, [...] mutated. CT scan of chest abdomen pelvis were negative for any metastatic disease. She has disease involving bowel wall without any evidence of metastasis on the CT scan. On 11/08/2022 she underwent laparoscopic right hemicolectomy. 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 Twenty-four lymph nodes were removed in their were negative. Patient has pT3 pN0 stage II A disease. She had COVID infection and was admitted hospital on 02/25/2024. Discussed with the patient about diagnosis reviewed all the available blood tests and CT scan finding with her. PLAN: She will have repeat blood test done today including CBC, CMP and CEA. She will return clinic for follow-up in months with CBC, CMP and CEA level. The patient voiced understanding of all of [...] documented in this encounter Nursing Notes * Malena Sandoval, STITCH BONDING MACHINE TENDER - 04/03/2024 10:58 AM EST Patient identifed by name and birthdate Do you have any concerns about pain management for today's visit? Yes. Patient instructed to discuss pain concerns with provider during the visit today Living Will or Advance Directive for Health Care as noted on the problem list. [facility] is a way you can talk to your provider on line through e-mail. Would you like to sign up? I can activate it for you? ALREADY ACTIVE Filed Vitals: 04/03/24 1058 BP: 120/78 Pulse: 84 Temp: 36.5 C (97.7 F) TempSrc: Tympanic SpO2: 96% Weight: 44.4 kg (97 lb 12.8 oz) Patient was instructed to not get up [...] Description 05/03/2024 9:00 AM EST [facility] [address] [facility] [phone] Adriel Whitaker MD [address] [facility] [place] [address] 08/08/2024 11:00 AM EDT Office Visit Hematology/Oncology [facility] [address] [facility] [place] [phone] Yosvany Moe MD [address] [facility] [place] [address] 09/05/2024 8:30 AM EDT Cardiac Studies Cardiac Studies, [facility] [address] [facility] [place] [address] Scheduled Orders Name Type Priority Associated Diagnoses Orde r Schedule CBC WITH WBC DIFFERENTIAL Lab Routine Adenocarcinoma of colon (HCC) Expected: 08/01/2024, Expires: 02/27/2025 COMPREHENSIVE METABOLIC PANEL Lab Routine Adenocarcinoma of colon (HCC) Expected: 08/01/2024, Expires: 02/27/2025 CEA Lab Routine Adenocarcinoma of colon (HCC) Expected: 08/01/2024, Expires: 02/27/2025 Scheduled Procedures Name Priority Associated Diagnoses Date/Ti [...] Comments DISCUSS TOBACCO CESSATION (REFER TO SMARTSET #9279) 1950 Alpha-1 Antitrypsin 1970 Hepatitis C Screening [...] ASSESSMENT COMPLETED IN PAST YEAR FOR COPD 04/03/2025 04/03/2024 Albumin/Creatinine Ratio 11/04/2025 11/04/2022, 01/0 10/2011 Lipid [...] as of this encounter Visit Diagnoses Diagnosis Adenocarcinoma of colon (HCC)- Primary Malignant neoplasm of colon, unspecified site Need for prophylactic vaccination and inoculation against influenza documented in this encounter Advance Directives * Full Code (Latest Code Status on File) Date Activated Date Inactivated Comments 11/08/2022 11:27 AM 11/11/2022 4:51 PM Question Answer Comments Discussion of Advance Directives occurred with: Patient Care Teams Part Time Relationship Specialty Start Date End Date Adriel Whitaker MD [address] [place] [facility] [place] [address] PCP - General Family Medicine 10/20/17 documented as of this encounter
--- OUTSIDE RECORDS SUMMARY | 2024-04-30 13:24 | External Medical Summary ---
Author Name Unknown Address Unknown Organization [id number] [id number] [place] [address] Laboratory Report Ordering Provider Test Date Status GENE FRANCE 04/03/2024 11:41:39 Final Observation Date Value Abnormality Reference (Units ) Status BUN 04/03/2024 11:41:39 26 Above high normal 6-20 (mg/dL) Final Creatinine 04/03/2024 11:41:39 1.0 0.5-1.0 (mg/dL) Final Glomerular filtration rate/1.73 sq M.predicted [Volume Rate/Area] in Serum, Plasma or Blood by Creatinine-based formula (CKD-EPI) 04/03/2024 11:41:39 63 >=60 (mL/min) Final eGFR is calculated based on the CKD-EPI 2020 equation. Sodium 04/03/2024 11:41:39 138 135-146 (m mol/L) Final Potassium 04/03/2024 11:41:39 3.8 3.5-5.1 (m mol/L) Final Cl 04/03/2024 11:41:39 98 98-107 (mm ol/L) Final CO2 04/03/2024 11:41:39 27 22-32 (mmo l/L) Final Anion gap 04/03/2024 11:41:39 13 7-15 (mmol /L) Final Glucose 04/03/2024 11:41:39 84 70-120 (mg /dL) Final Albumin 04/03/2024 11:41:39 4.3 3.8-5.0 (g /dL) Final AST (Aspartate aminotransferase) 04/03/2024 11:41:39 15 10-35 (U/L) Final Alk Phos 04/03/2024 11:41:39 63 35-130 (U/ L) Final Bilirubin, Total 04/03/2024 11:41:39 0.3 <=1 .2 (mg/dL) Final Calcium 04/03/2024 11:41:39 10.0 8.4-10.2 ( mg/dL) Final Protein 04/03/2024 11:41:39 6.8 6.0-8.3 (g /dL) Final ALT (Alanine aminotransferase) 04/03/2024 11:41:39 18 10-35 (U/L) Final Performing Location [facility] [address] [place] [address]
--- OUTSIDE RECORDS SUMMARY | 2024-04-30 13:24 | External Medical Summary | Summary of Care ---
Author Name Unknown Organization [facility] Address [address] [place] [address] Phone [phone] Care Team Providers Care Per Diem Registered Nurse Name Role Phone Adriel Whitaker MD Primary Care Provider +1- [phone] Reason for Visit * Reason Onset Date Comments Med Request 02/22/2024 Poss Sinus Infec tion Encounter Details Date Type Department Care Team (Late st Contact Info) Description 02/22/2024 Telephone Merged With [facility] [address] [place] [address] Adriel Whitaker MD [address] [place] [address] Med Request (Poss Sinus Infection) Allergies Active Allergy Reactions Criticality Noted Date Comments Cisapride 11/05/1998 diarrhea Doxycycline 11/05/1998 diarrhea Macrolides And Ketolides 05/17/2000 zithromax, diarrhea Salicylates 11/05/1998 intol documented as of this encounter (statuses as of 03/08/2024) Medications Medication Sig Dispensed Refills Start Date [...] Additional Information Patient not taking.Reported on 03/07/2024 Famotidine 20 MG Oral Tablet (Pepcid) Take 1 Tablet by mouth in the morning and 1 Tablet before bedtime. 180 Tablet 1 09/17/2022 4 Discontinue d(Refill) Albuterol Sulfate HFA 108 (90 Base) MCG/ACT Inhalation Aerosol Solution 01/12/2023 4 Discontinue d(Medicatio n List Clean Up) ALPRAZolam 0.25 MG Oral Tablet (xaNAX)Indicatio ns:Agoraphobia with panic disorder,Severe anxiety with panic,Controlled substance agreement signed,Anxiety Take 1 Tablet by mouth 3 times a day as needed for Anxiety. 90 Tablet 01/24/2024 4 Discontinue d(Refill) documented as of this encounter (statuses as of 03/08/2024) Active Problems Problem Noted Date Diagnosed Date [...] as of this encounter (statuses as of 03/08/2024) Resolved Problems Problem Noted Date Diagnosed Date [...] as of this encounter (statuses as of 03/08/2024) Immunizations Name Administration Dates Next Due Diptheria/Tetanus (Adult) 05/09/1990 Influenza, Whole Virus 02/20/1999 Pneumococcal Conjugate Vacc, 13 Valent (Prevnar) 03/08/2018 Pneumococcal Polysaccharide PPV23 (Pneumovax) 10/13/2006,03/04/1994 Seasonal Influenza Vac., MDV , IM, 0.5 mL (Fluzone) 01/31/2014,03/08/2011,02/07/2010,03/11,03/11/2005,02/20/2002,04/25/2001 ,04/18/2000 Seasonal Influenza, PF, 6 M & above, [...] encounter Miscellaneous Notes * Telephone Encounter - Maritza Gale LPN - 03/08/2024 12:53 PM EDT Patient was seen in the office on 03/01/2024, I called and spoke with the patient to follow up on how she was feeling and she states she is not feeling much better at all. I advised patient that if she is still not feeling better by the end of the week she should schedule an appointment to be seen again. * Telephone Encounter - Yarely Dunlap LPN - 02/23/2024 2:40 PM EDT Called pt. VM is full and can't even any message. * Telephone Encounter - Adriel Whitaker MD - 02/22/2024 5:50 PM EDT 3 days is too soon to say that it is a sinus infection. Would suggest COVID test at home, fluids, rest. Please see if any fever or shortness of breath. * Telephone Encounter - Landy Washington LPN - 02/22/2024 12:53 PM EDT Cold/Asthma/Allergy COLD/ASTHMA/ALLERGY Yes Cold Symptoms Nasal Congestion,Headache How long have had your symptoms? 3 days Fever: No Patient's Action(s) What have you done or taken for this problem? Was taking Mucinex, but that wasn't helping Additional Comment(s) Additional Comments: Faith Bainubb is calling in wanting to know, if Dr Adriel Whitaker would call in an antibiotic for her current symptoms. No appts available in the clinic. Pt is requesting medication vs coming in for an appt. Patient Request Patient Requesting: Advice,Medication Prescribed Please advise * Telephone Encounter - Leonila Muniz OSA - 02/22/2024 9:07 AM EDT Medication Request. Please see Call Details. documented in this encounter Plan of Treatment Upcoming Encounters Date Type Department Care Team (Late st Contact Info) Description 04/03/2024 11:00 AM EST Office Visit Hematology/Oncology [facility] [place] [address] [place] [phone] Yosvany Moe MD [address] [place] [address] 05/03/2024 9:00 AM EST [facility] [address] [phone] Adriel [facility] [address] [facility] [address] 09/05/2024 8:30 AM EDT Cardiac Studies Cardiac Studies, [facility] [address] [place] [address] Scheduled Procedures Name Priority Associated Diagnoses Date/Ti [...] Comments DISCUSS TOBACCO CESSATION (REFER TO SMARTSET #2295) 1950 Alpha-1 Antitrypsin 1970 Hepatitis C Screening [...] COPD 03/01/2025 03/01/2024 Albumin/Creatinine Ratio 11/04/2025 11/04/2022, 01/0 10/2011 Lipid [...] Advance Directives occurred with: Patient Care Teams Per Diem Registered Nurse Relationship Specialty Start Date End Date Adriel Whitaker MD [address] [place] [facility] [place] [address] PCP - General Family Medicine 10/20/17 documented as of this encounter
--- OUTSIDE RECORDS SUMMARY | 2024-04-30 13:24 | External Medical Summary ---
Author Name Unknown Address Unknown Organization [facility] [address] [address] Laboratory Report Ordering Provider Test Date Status GENE FRANCE 04/03/2024 11:41:39 Final Observation Date Value Abnormality Reference (Units ) Status WBC, Total 04/03/2024 11:41:39 9.00 4.00-10.8 0 (K/uL) Final RBC 04/03/2024 11:41:39 4.10 3.85-5.15 (M/uL) Final Hemoglobin 04/03/2024 11:41:39 13.2 12.0-15.3 (g/dL) Final HCT 04/03/2024 11:41:39 40.1 36.0-45.2 (%) Final MCV 04/03/2024 11:41:39 97.8 81.5-97.5 (fL) Final MCH 04/03/2024 11:41:39 32.2 27.0-34.0 (pg) Final MCHC 04/03/2024 11:41:39 32.9 32.0-36.0 (g/dL) Final RDW 04/03/2024 11:41:39 12.5 11.5-15.5 (%) Final Platelets 04/03/2024 11:41:39 178 140-400 (K /uL) Final MPV 04/03/2024 11:41:39 10.3 6.6-11.1 ( fL) Final Performing Location [facility] [place] [address]
--- OUTSIDE RECORDS SUMMARY | 2024-04-30 13:24 | External Medical Summary | Summary of Care ---
Author Name Unknown Organization [facility] Address [address] [place] [address] Phone [phone] Care Team Providers Care Customer Service Sales Consultant Name Role Phone Marisela Vaughan MD Primary Care Provider +1- [phone] Reason for Visit * Reason Onset Date Comments Medication Refill 02/28/2024 Encounter Details Date Type Department Care Team (Late st Contact Info) Description 02/28/2024 Refill [facility] [address] [place] [address] Marisela Vaughan MD [address] [place] [address] Gastroesophageal reflux disease, unspecified whether esophagitis present*; Agoraphobia with panic disorder; Severe anxiety with panic; Controlled substance agreement signed; Anxiety; Abdominal pain, epigastric Allergies Active Allergy Reactions Criticality Noted Date Comments Cisapride 11/05/1998 diarrhea Doxycycline 11/05/1998 diarrhea Macrolides And Ketolides 05/17/2000 zithromax, diarrhea Salicylates 11/05/1998 intol documented as of this encounter (statuses as of 02/28/2024) Medications Medication Sig Dispensed Refills Start Date [...] the morning. 90 Tablet 3 11/23/2023 Active Fluticasone Propionate 50 MCG/ACT Nasal Suspension (Flonase) Administer 2 Sprays into nostril daily as needed. 02/25/2024 Active Cefuroxime Axetil 250 MG Oral Tablet (Ceftin) Take 1 Tablet by mouth in the morning and 1 Tablet before bedtime. 02/25/2024 Active Docusate Sodium 100 MG Oral [...] before bedtime. 180 Tablet 3 02/28/2024 Active Famotidine 20 MG Oral Tablet (Pepcid) Take 1 Tablet by mouth in the morning and 1 Tablet before bedtime. 180 Tablet 1 09/17/2022 4 Discontinue d(Refill) ALPRAZolam 0.25 MG Oral Tablet (xaNAX)Indicatio ns:Agoraphobia with panic disorder,Severe anxiety with panic,Controlled substance agreement signed,Anxiety Take 1 Tablet by mouth 3 times a day as needed for Anxiety. 90 Tablet 01/24/2024 4 Discontinue d(Refill) documented as of this encounter (statuses as of 02/28/2024) Active Problems Problem Noted Date Diagnosed Date [...] as of this encounter (statuses as of 02/28/2024) Resolved Problems Problem Noted Date Diagnosed Date [...] as of this encounter (statuses as of 02/28/2024) Immunizations Name Administration Dates Next Due Pneumococcal [...] Telephone Encounter - Marisela Vaughan MD - 02/28/2024 4:50 PM EDTSigned Prescriptions: Disp Refills ALPRAZolam 0.25 MG Oral Tablet (xaNAX) 90 Tab*0 Sig: Take 1 Tablet by mouth 3 times a day as needed for Anxiety.Authorizing Provider: MARISELA VAUGHAN [id number] MG Oral Tablet (Pepcid) 180 Ta*3 Sig: Take 1 Tablet by mouth in the morning and 1 Tablet before b edtime.Authorizing Provider: MARISELA VAUGHAN * Telephone Encounter - Perri Luna RN - 02/28/2024 4:04 PM EDT Provider to address: KAMRAN completed for patient discharged from [facility] 02/25/2024 for Covid 19 Infection, Acute Metabolic Encephalopathy and Constipation Patient is requesting refills on Xanax and Pepcid. Pended for PCP review. Reason for Call: Med Request Contact: Telephone Call Contact Type: Medication Provider In-Basket: No Outcome: See above Face to face time spent with Patient (minutes): 0 Total Time including non face to face (minutes): 10 documented in this encounter Plan of Treatment Upcoming Encounters Date Type Department Care Team (Late st Contact Info) Description 03/01/2024 11:20 AM EDT Office Visit [facility] [address] [facility] [phone] Maris[facility]an [facility] [address] [facility] [address] 03/07/2024 8:30 AM EDT Office Visit Cardiology, [facility] [address] [place] [address] Martin Ko DO [address] [place] [address] 04/03/2024 11:00 AM EST Office Visit Hematology/Oncology [facility] [place] [address] [facility] [place] [address] Yosvany Moe MD [address] [place] [address] 05/03/2024 9:00 AM EST Office Visit [facility] [address] [place] [phone] Marisela Vaughan MD [address], [place] [phone] Scheduled Procedures Name Priority Associated Diagnoses Date/Ti [...] Comments DISCUSS TOBACCO CESSATION (REFER TO SMARTSET #3652) 1950 Alpha-1 Antitrypsin 1970 Hepatitis C Screening [...] COPD 2024 11/23/2023 Albumin/Creatinine Ratio 11/04/2025 11/04/2022, /10/2011 Lipid Panel 11/20/2028 11/21/2023, 10/08, 09/18/2021, Additional [...] as of this encounter Visit Diagnoses Diagnosis Gastroesophageal reflux disease, unspecified whether esophagitis present- Primary Agoraphobia with panic disorder Severe anxiety with panic Controlled substance agreement signed Encounter for long-term (current) use of other medications Anxiety Anxiety state, unspecified Abdominal pain, epigastric documented in this encounter Advance Directives * Full Code (Latest Code Status on File) Date Activated Date Inactivated Comments 11/08/2022 11:27 AM 11/11/2022 4:51 PM Question Answer Comments Discussion of Advance Directives occurred with: Patient Care Teams Customer Service Sales Consultant Relationship Specialty Start Date End Date Marisela Vaughan MD [address] [place] [facility] [place] [address] PCP - General Family Medicine 10/20/17 documented as of this encounter
--- OUTSIDE RECORDS SUMMARY | 2024-04-30 13:24 | External Medical Summary ---
Author Name Unknown Address Unknown Organization K09:[facility] [place] [address] Laboratory Report Ordering Provider Test Date Status GENE FRANCE 04/03/2024 11:41:39 Final Observation Date Value Abnormality Reference (Units ) Status SYNC LEUKOCYTES IN BLOOD BY AUTOMATED COUNT 04/03/2024 11:41:39 9.00 4.00-10.80 (K/uL) Final Segs 04/03/2024 11:41:39 68.0 40.0-75.0 (%) Final Lymphs % 04/03/2024 11:41:39 21.6 18.0-42.0 (%) Final Monos 04/03/2024 11:41:39 9.1 1.0-11.0 (%) Final Eosinophils 04/03/2024 11:41:39 0.9 0.0-6.0 (%) Final Basos 04/03/2024 11:41:39 0.4 0.0-2.0 (%) Final Absolute Segs 04/03/2024 11:41:39 6.12 1.80-7.70 (K/uL) Final Lymphs, absolute 04/03/2024 11:41:39 1.94 1.00-4.80 (K/ul) Final Monos, Abs 04/03/2024 11:41:39 0.82 0.00-1.10 (K/uL) Final Eos, Abs 04/03/2024 11:41:39 0.08 0.00-0.70 (K/uL) Final Basos, Abs 04/03/2024 11:41:39 0.04 0.00-0.20 (K/uL) Final Performing Location [facility] [place] [address]
--- OUTSIDE RECORDS SUMMARY | 2024-04-30 13:24 | External Medical Summary | Summary of Care ---
Author Name Unknown Organization [facility] Address [address] [place] [address] Phone [phone] Care Team Providers Care Crusher Supervisor Name Role Phone Marisela Vaughan MD Primary Care Provider +1- [phone] Reason for Visit * Reason Onset Date Comments Advice 04/16/2024 Encounter Details Date Type Department Care Team (Late st Contact Info) Description 04/16/2024 Telephone [facility] [address] [place] [address] Marisela Vaughan MD [address] [place] [address] Advice Allergies Active Allergy Reactions Criticality Noted Date Comments Cisapride 11/05/1998 diarrhea Doxycycline 11/05/1998 diarrhea Macrolides And Ketolides 05/17/2000 zithromax, diarrhea Salicylates 11/05/1998 intol documented as of this encounter (statuses as of 04/16/2024) Medications Acetaminophen 500 MG Oral Tablet (Tylenol) [...] for Anxiety. 90 Tablet 04/16/20 24 Active ALPRAZolam 0.25 MG Oral Tablet (xaNAX)Indicati ons:Agoraphobia with panic disorder,Severe anxiety with panic,Controlle d substance agreement signed,Anxiety Take 1 Tablet by mouth 3 times a day as needed for Anxiety. 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 Not on file [...] Telephone Encounter - Marisela Vaughan MD - 04/16/2024 4:16 PM ESTSigned Prescriptions: Disp Refills ALPRAZolam 0.25 MG Oral Tablet (xaNAX) 90 Tab*0 Sig: Take 1 Tablet by mouth 3 times a day as needed for Anxiety.Authorizing Provider: MARISELA VAUGHAN * Telephone Encounter - Yarely DunlapJUSTIN - 04/16/2024 9:37 AM EST Did you pend patient's preferred pharmacy and medication before forwarding?yes Pharmacy: [id number] [address] [facility] Pending Prescriptions: Disp Refills ALPRAZolam 0.25 MG Oral Tablet (xaNAX) 90 Tab*0 Sig: Take 1 Tablet by mouth 3 times a day as needed for Anxiety. Last Visit: Visit date not found (in office), Visit date not found (telemedicine) Next Visit: 05/03/2024 If no future appointments scheduled, and last appointment is greater than a year ago, please schedule patient for a follow-up appointment Last date the medication was ordered: 1 Is this request for a controlled substance?Yes, What was the last refill date 02/28/24 w/ quantity 90 and dosage 0.25 mg and Urine Drug Screen Not completed Urine Drug Screen: Results for orders [...] Labs: Lab Results Component Value Date/Time CREAT 1.0 04/03/2024 11:41 AM CREAT 0.7 02/06/2019 07:48 AM POTASSIUM 3.8 04/03/2024 11:41 AM POTASSIUM 4.6 02/06/2019 07:48 AM TSH 0.53 08/02/2022 12:23 PM TSH 0.70 05/11/2005 11:13 AM LDL 90 11/21/2023 08:18 AM LDL 109 03/17/2020 07:46 AM LDL 108 02/06/2019 07:48 AM ALT 18 04/03/2024 11:41 AM ALT 11 02/06/2019 07:48 AM * Telephone Encounter - Qiana Jonas OSA - 04/16/2024 8:27 AM EST Pt called and would like to know if can refill Rx Alprazolam 0.25. documented in this encounter Plan of Treatment Upcoming Encounters Date Type Department Care Team (Late st Contact Info) Description 05/03/2024 9:00 AM EST Office Visit [facility] [address] [place] [phone] Marisela Vaughan MD [address] [place] [address] 08/08/2024 11:00 AM EDT Office Visit Hematology/Oncology [facility] [address] [facility] [place] [phone] Yosvany Moe MD [address] [place] [address] 09/05/2024 8:30 AM EDT Cardiac Studies Cardiac Studies, [facility] [address] [facility] [place] [address] Scheduled Procedures Name Priority Associated Diagnoses Date/Ti [...] Comments DISCUSS TOBACCO CESSATION (REFER TO SMARTSET #3498) 1950 Alpha-1 Antitrypsin 1970 Hepatitis C Screening [...] COPD 04/03/2025 04/03/2024 Albumin/Creatinine Ratio 11/04/2025 11/04/2022, 10/2011 Lipid Panel [...] Advance Directives occurred with: Patient Care Teams Crusher Supervisor Relationship Specialty Start Date End Date Marisela Vaughan [facility] [address] [facility] [address] PCP - General Family Medicine 10/20/17 documented as of this encounter
--- OUTSIDE RECORDS SUMMARY | 2024-04-30 13:24 | External Medical Summary | Summary of Care ---
Author Name Unknown Organization [facility] Address [address] [place] [address] Phone [phone] Care Team Providers Care Access Nurse Name Role Phone Adriel Whitaker MD Primary Care Provider +1- [phone] Reason for Visit * Reason Onset Date Comments Advice 03/07/2024 Encounter Details Date Type Department Care Team (Late st Contact Info) Description 03/07/2024 Telephone [facility] [address] [place] [address] Adriel Whitaker MD [address] [place] [address] Advice Allergies Active Allergy Reactions [...] Aerosol SolutionIndicatio ns:COPD, severity to be determined (HCC) Inhale 2 Puffs by mouth every 6 hours as needed for Shortness of Breath. 18 g 5 10/11/2023 Active Rosuvastatin Calcium 20 MG Oral Tablet (Crestor)Indicati ons:Dyslipidemia, goal LDL below 100 Take 1 Tablet [...] Constipation. Active ALPRAZolam 0.25 MG Oral Tablet (xaNAX)Indication s:Agoraphobia with panic disorder,Severe anxiety with panic,Controlled substance agreement signed,Anxiety Take 1 Tablet by mouth 3 times a day as needed for Anxiety. 90 Tablet 02/28/2024 Active Famotidine 20 MG Oral Tablet (Pepcid)Indicatio ns:Gastroesophage al reflux disease, unspecified whether esophagitis present Take 1 Tablet by mouth in the morning and 1 Tablet before bedtime. 180 Tablet 3 02/28/2024 Active Cefuroxime Axetil 250 MG Oral Tablet (Ceftin) Take 1 Tablet by mouth in the morning and 1 Tablet before bedtime. Do all this for 7 days. 14 Tablet 03/07/2024 03/14/2024 Active documented as of this encounter (statuses [...] encounter Miscellaneous Notes * Telephone Encounter - Adriel Whitaker MD - 03/07/2024 2:17 PM EDT Extension of course of abx sent * Telephone Encounter - Jayshree Roca OSA - 03/07/2024 10:34 AM EDT Patient called and said that she was in office on 03/[address] Whitaker told her he was going tocall in a refill for a few pills of her antibiotic but they were never called in so she was wondering if that could be sent. Please advise, thank you. documented in this encounter Plan of Treatment Upcoming Encounters Date Type Department Care Team (Late st Contact Info) Description 04/03/2024 11:00 AM EST Office [facility] [address] [facility] [place] [phone] Yosvany Moe MD [address] [facility] [place] [address] 05/03/2024 9:00 AM EST Office Visit [facility] [address] [place] [address] Adrile Whitaker MD [address] [place] [address] 09/05/2024 8:30 AM EDT Cardiac Studies Cardiac Studies, [facility] [address] [facility] [place] [address] Scheduled Procedures Name Priority Associated Diagnoses Date/Ti [...] Comments DISCUSS TOBACCO CESSATION (REFER TO SMARTSET #7112) 1950 Alpha-1 Antitrypsin 1970 Hepatitis C Screening [...] Advance Directives occurred with: Patient Care Teams Access Nurse Relationship Specialty Start Date End Date Adriel Whitaker MD [address] [place] [facility] [place] [address] PCP - General Family Medicine 10/20/17 documented as of this encounter
--- OUTSIDE RECORDS SUMMARY | 2024-04-30 13:24 | External Medical Summary | Summary of Care ---
Author Name Unknown Organization [facility] Address [address] [place] [address] Phone [phone] Care Team Providers Care Adult Crossing Guard Name Role Phone Adriel Whitaker MD Primary Care Provider +1- [phone] Reason for Visit * Reason Onset Date Comments Medication Refill 04/10/2024 Encounter Details Date Type Department Care Team (Late st Contact Info) Description 04/10/[address] [address] Adriel Whitaker MD [address] [place] [address] Allergies Active Allergy Reactions Criticality Noted Date Comments Cisapride 11/05/1998 diarrhea Doxycycline 11/05/1998 diarrhea Macrolides And Ketolides 05/17/2000 zithromax, diarrhea Salicylates 11/05/1998 intol documented as of this encounter (statuses as of 04/10/2024) Medications Acetaminophen 500 MG Oral Tablet (Tylenol) [...] as of this encounter (statuses as of 04/10/2024) Active Problems Problem Noted Date Diagnosed Date [...] as of this encounter (statuses as of 04/10/2024) Resolved Problems Problem Noted Date Diagnosed Date [...] as of this encounter (statuses as of 04/10/2024) Immunizations Name Administration Dates Next Due Pneumococcal [...] 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 Informed pt that RX is available at their pharmacy. Pt verbalized understanding and stated they will check with their pharmacy regarding this medication. Thank you, Selena Girard CPhT [facility] 04/10/2024, 11:18 AM documented in this encounter Plan of Treatment Upcoming Encounters Date Type Department Care Team (Late st Contact Info) Description 05/03/2024 9:00 AM EST Office Visit [facility] Practice, [facility] [address] [place] [phone] Adriel Whitaker MD [address] [facility] [place] [address] 08/08/2024 11:00 AM EDT Office Visit Hematology/Oncology [facility] [address] [facility] [place] [address] Yosvany Moe MD [address] [facility] [place] [address] 09/05/2024 8:30 AM EDT Cardiac Studies Cardiac Studies, [facility] [address] [facility] [place] [address] Scheduled Procedures Name Priority Associated Diagnoses Date/Ti [...] Comments DISCUSS TOBACCO CESSATION (REFER TO SMARTSET #[id number]) 1950 Alpha-1 Antitrypsin 1970 Hepatitis C Screening [...] Vaccine ( season) 2024 04/01/2021, 07/22/2020, 07/01/2020 Depression Monitoring [...] Advance Directives occurred with: Patient Care Teams Adult Crossing Guard Relationship Specialty Start Date End Date Adriel Whitaker MD [address] [facility] [place] [phone] PCP - General Family Medicine 10/20/17 documented as of this encounter
--- OUTSIDE RECORDS SUMMARY | 2024-04-30 13:24 | External Medical Summary | Summary of Care ---
Author Name Unknown Organization [facility] Address [address] [place] [address] Phone [phone] Care Team Providers Care Implementation Project Coordinator Name Role Phone Adriel Whitaker MD Primary Care Provider +1- [phone] Reason for Visit * Reason Onset Date Comments Hospital Follow-Up Hospital foll ow up, pt admitted from 02/21-02/24 for covid and metabolic encephalitis.Pt reports still not feeling well. Hospital Follow-Up 03/26/2024 Encounter Details Date Type Department Care Team (Late st Contact Info) Description 03/01/2024 11:20 AM EDT Office Visit [facility] [address] [place] [address] Adriel Whitaker MD [address], [place] [phone] COVID-19 virus infection*; Hospital discharge follow-up; COPD, severity to be determined (HCC); Severe anxiety with panic; Moderate episode of recurrent major depressive disorder (HCC) Allergies Active Allergy Reactions Criticality Noted Date Comments Cisapride 11/05/1998 diarrhea Doxycycline 11/05/1998 diarrhea Macrolides And Ketolides 05/17/2000 zithromax, diarrhea Salicylates 11/05/1998 intol documented as of this encounter (statuses as of 03/26/2024) Medications Acetaminophen 500 MG Oral Tablet (Tylenol) [...] Sprays into nostril daily as needed. 02/25/20 Active Docusate Sodium 100 MG Oral Capsule [...] as needed for Anxiety. 90 Tablet 02/28/20 Active Famotidine 20 MG Oral Tablet (Pepcid)Indicat ions:Gastroesop hageal reflux disease, unspecified whether esophagitis present Take 1 Tablet by mouth in the morning and 1 Tablet before bedtime. 180 Tablet 3 02/28/20 Active Albuterol Sulfate HFA 108 (90 Base) MCG/ACT Inhalation Aerosol Solution 01/13/20 024 Discontin ued(Medic ation List Clean Up) Cefuroxime Axetil 250 MG Oral Tablet (Ceftin) Take 1 Tablet by mouth in the morning and 1 Tablet before bedtime. 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 file Not on file Not on file documented as of this encounter Last Filed Vital Signs Vital Sign Reading Time Taken Comments Blood Pressure 116/82 03/01/2024 11:15 AM EDT Pulse 86 03/01/2024 11:15 AM EDT Temperature 36.5 C (97.7 F) 03/01/2024 11:15 AM E DT Respiratory Rate 16 03/01/2024 11:15 AM EDT Oxygen Saturation 97% 03/01/2024 11:15 AM EDT Inhaled Oxygen Concentration - - Weight 44.4 kg (97 lb 12.8 oz) 03/01/2024 11:15 AM EDT Height 167.6 cm (5' 6") 03/01/2024 11:15 AM EDT Body Mass Index 15.79 03/01/2024 11:15 AM EDT documented in this encounter Functional Status * Are you deaf or do you have serious difficulty hearing? Answer Date of Assessment Author No 11/08/2022 3:05 PM EDT Carine Carmen RN * Are you blind or do you have serious difficulty seeing, even when wearing glasses? Answer Date of Assessment Author No 11/08/2022 3:05 PM EDT Carine Carmen RN * Do you have serious difficulty walking or climbing stairs? (5 years old or older) Answer Date of Assessment Author No 11/08/2022 3:05 PM MARIET[place]AT Carine Carmen RN * Do you have difficulty dressing or bathing? (5 years old or older) Answer Date of Assessment Author No 11/08/2022 3:05 PM EDT Carine Carmen RN * Because of a physical, mental, [...] documented in this encounter Progress Notes * Adriel Whitaker MD - 03/01/2024 11:30 AM EDT Subjective: Faith Chavis is a 73 year old female here today for Chief Complaint Patient presents with Hospital Follow-Up Hospital follow up, pt admitted from 02/21-02/24 for covid and metabolic encephalitis. Pt reports still not feeling well. Hospital Follow-Up Patient presents for hospital follow-up. She was admitted to [facility] February 22, 2024 through February 25, 2024. Presenting symptoms were chest congestion and weakness for 3 days.She was diagnosed with COVID-19 infection, metabolic encephalopathy, constipation. She responded to routine treatments. Did have therapy evaluations. Was changed to oral medications and improved sufficiently for discharge. For the metabolic encephalopathy, her CT scan of the head was unremarkable. She did have some constipation that was treated. Patient states that she has not had cough, shortness of breath, fever. She is eating better. She has not had any falls. She does feel weak and has muscle aches and memory issues. Past Medical History: Diagnosis Date Dyslipidemia, goal LDL below 100 Gastro-esophageal reflux Generalized anxiety disorder HTN, goal below 140/90 Past Surgical History: Procedure Laterality Date CAROTID (INTERNAL) ARTERY CATHETHER PLACEMENT Right 09/07/2022 CATHETER PLACEMENT INTERNAL CAROTID ARTERY RADIAL ACCESS performed by Ari Toney MD [place] [facility] [place]ONOSCOPY, DIAGNOSTIC (RECTUM) N/A 09/24/2022 COLONOSCOPY FLEXIBLE PROXIMAL DIAGNOSTIC performed by Hannah Lepe MD at [place] [facility] EGD, FLEXIBLE, DIAGNOSTIC N/A 09/24/2022 ESOPHAGOGASTRODUODENOSCOPY (EGD), FLEXIBLE, TRANSORAL, DIAGNOSTIC performed by Hannah Lepe MD at [place] [facility] INFORMATION 3 pregnancies, l&D x2, misscarriage LAPAROSCOPIC COLECTOMY PARTIAL WITH ANASTOMOSIS N/A 11/08/2022 LAPAROSCOPIC PARTIAL COLECTOMY WITH ANASTOMOSIS performed by Gina Kapadia MD at [place] [facility] LIGATE/CUT OVIDUCT(S) Tubal Ligation Review of patient's [...] 1 Tablet before bedtime. 180 Tablet 3 Pantoprazole Sodium 40 MG Oral Tablet Delayed Release (Protonix) Take 1 tab twice daily for 4 weeksthen take 1 tab daily. (Patient not taking: Reported on 03/26/2024) 60 Tablet 5 Bacitracin 500 UNIT/GM External Ointment Apply topically to affected area 3 times a day. Apply to red lesions on scalp, neck and abdomen until they resolve. 30 g 1 No current facility-administered medications for this visit. Objective: BP 116/82 | Pulse 86 | Temp 36.5 C (97.7 F) (Tympanic) | Resp 16 | Ht 1.676 m (5' 6") | Wt 44.4 kg (97 lb 12.8 oz) | SpO2 97% | BMI 15.79 kg/m | BSA 1.44 m GEN: NAD HEENT: Benign NECK: Supple with no LAD, TM, JVD CHEST: CTA B CV: RRR ABD: Soft, NT/ND, No HSM, NABS EXT: No c,c,e Assessment and Plan: COVID-19 virus infection (Primary) -improved with treatments. Expect she will continue to see gradual improvement. Encouraged good hydration, healthy diet. Hospital discharge follow-up - DISCH MED RECON CUR MED LIS COPD, severity to be determined (HCC) -continue current treatments Severe anxiety with panic Moderate episode of recurrent major depressive disorder (HCC) -encourage patient to try to minimize use of alprazolam. 40 min with pt and chart review Adriel Whitaker MD documented in this encounter Nursing Notes * Malena Altamirano MED ASSIST - 03/01/2024 11:20 AM EDT The patient has been properly identified by confirmation of name and date of . Chief Complaint Patient presents with Hospital Follow-Up Hospital follow up, pt admitted from 02/21-02/24 for covid and metabolic encephalitis. Pt reports still not feeling well. documented in this encounter Plan of Treatment Upcoming Encounters Date Type Department Care Team (Late st Contact Info) Description 04/03/2024 11:00 AM EST [facility] [place] [address] [facility] [place] [phone] Yosvany Moe MD [address] [facility] [place] [address] 05/03/2024 9:00 AM EST Office Visit [facility] [address] [place] [address] Adriel Whitaker MD [address] [place] [address] 09/05/2024 8:30 AM EDT Cardiac Studies Cardiac Studies, [facility] [address] [facility] [place] [address] Scheduled Procedures Name Priority Associated Diagnoses Date/Ti [...] Comments DISCUSS TOBACCO CESSATION (REFER TO SMARTSET #3908) 1950 Alpha-1 Antitrypsin 1970 Hepatitis C Screening [...] ASSESSMENT COMPLETED IN PAST YEAR FOR COPD 03/26/2025 03/26/2024 Albumin/Creatinine Ratio 11/04/2025 11/04/2022, 10/2011 Lipid Panel [...] as of this encounter Visit Diagnoses Diagnosis COVID-19 virus infection- Primary Hospital discharge follow-up Other follow-up examination COPD, severity to be determined (HCC) Chronic airway obstruction, not elsewhere classified Severe anxiety with panic Moderate episode of recurrent major depressive disorder (HCC) documented in this encounter Advance Directives * Full Code (Latest Code Status on File) Date Activated Date Inactivated Comments 11/08/2022 11:27 AM 11/11/2022 4:51 PM Question Answer Comments Discussion of Advance Directives occurred with: Patient Care Teams Implementation Project Coordinator Relationship Specialty Start Date End Date Adriel Whitaker MD [address] [place] [address] PCP - General Family Medicine 6/14/18 documented as of this encounter
--- OUTSIDE RECORDS SUMMARY | 2024-04-30 13:24 | External Medical Summary | Summary of Care ---
Author Name Unknown Organization [facility] Address [address] [place] [address] Phone [phone] Care Team Providers Care Tank Washer Name Role Phone Adriel Whitaker MD Primary Care Provider +1- [phone] Reason for Visit * Reason Comments Acute Ear painFeels like s omehari is in itHas fluid in her ears and can hear cracking This has been present for a month now Has dizziness but not sure if this is from other conditions Encounter Details Date Type Department Care Team (Late st Contact Info) Description 03/26/2024 2:40 PM EST Office Visit [facility] [address] [place] [address] Enid Stanley MD [address] [place] [address] Bilateral impacted cerumen*; Impetigo Allergies Active Allergy Reactions Criticality Noted Date [...] 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 Not on file Not on file documented as of this encounter Last Filed Vital Signs Vital Sign Reading Time Taken Comments Blood Pressure 116/88 03/26/2024 2:39 PM EST Pulse 94 03/26/2024 2:39 PM EST Temperature 36.7 C (98.1 F) 03/26/2024 2:39 PM ES T Respiratory Rate 17 03/26/2024 2:39 PM EST Oxygen Saturation 95% 03/26/2024 2:39 PM EST Inhaled Oxygen Concentration - - Weight 45 kg (99 lb 3.2 oz) 03/26/2024 2:[address] Height 167.6 cm (5' 6") 03/26/2024 2:39 PM EST Body Mass Index 16.01 03/26/2024 2:39 PM EST documented in this [...] documented in this encounter Progress Notes * Enid Stanley MD - 03/26/2024 3:03 PM EST ASSESSMENT / PLAN: Faith Chavis is a 73 year old female Bilateral impacted cerumen (Primary) - REMOVAL IMPACTED CERUMEN IRRIGATION/LAVAGE, UNILAT Impetigo - Bacitracin 500 UNIT/GM External Ointment; Apply topically to affected area 3 times a day. Apply to red lesions on scalp, neck and abdomen until they resolve. If needed, prefers contact by: Ok to leave message on phone: SUBJECTIVE: Nursing Notes: Pattie Scott LPN 03/26/24 1445 Signed The patient has been properly identified by confirmation of name and date of . Chief Complaint Patient presents with Acute Ear pain Feels like something is in it Has fluid in her ears and can hear cracking This has been present for a month now Has dizziness but not sure if this is from other conditions HPI: Faith Chavis is a 73 year old female. Here for recheck. 1 month of ear fullness and some pain. Sensation of cracking in ears. Also has some bites "?nits" she thinks from her cat - they bleed. Not itchy. Lesions on abdomen, neck and scalp. Reviewed sources 1- Patient Active Problem List Diagnosis Dyslipidemia, goal [...] episode of recurrent major depressive disorder (HCC) Current Outpatient Medications Medication Sig Dispense Refill [...] for Shortness of Breath. 18 g 5 Docusate Sodium 100 MG Oral Capsule (Colace) [...] abdomen until they resolve. 30 g 1 Pantoprazole Sodium 40 MG Oral Tablet Delayed Release (Protonix) Take 1 tab twice daily for 4 weeksthen take 1 tab daily. (Patient not taking: Reported on 03/26/2024) 60 Tablet 5 Rosuvastatin Calcium 20 MG Oral Tablet (Crestor) Take 1 Tablet by mouth in the morning. (Patient not taking: Reported on 03/26/2024) 90 Tablet 3 Fluticasone Propionate 50 MCG/ACT Nasal Suspension (Flonase) Administer 2 Sprays into nostril dailyas needed. (Patient not taking: Reported on 03/26/2024) No current facility-administered medications for this visit. OBJECTIVE: BP 116/88 | Pulse 94 | Temp 36.7 C (98.1 F) | Resp 17 | Ht 1.676 m (5' 6") | Wt 45 kg (99 lb 3.2 oz) | SpO2 95% | BMI 16.01 kg/m | BSA 1.45 m Vitals reviewed and is normotensive / afebrile / and not tachycardic General: No acute distress. Neuro: Alert Pleasant & interactive. Respiratory: Good inspiratory effort, no labored breathing. HEENT: Conjunctivae appear clear. No swelling noted face or lips. Bilateral impacted cerumen Skin: shallow ulcerations on abdomen, neck and scalp, with some dryness Psych: Normal affect. Fluent speech. Enid Stanley MD [address] [address] There are no Patient Instructions on file for this visit. documented in this encounter Nursing Notes * Pattie Scott LPN - 03/26/2024 2:44 PM EST The patient has been properly identified by confirmation of name and date of . Chief Complaint Patient presents with Acute Ear pain Feels like something is in it Has fluid in her ears and can hear cracking This has been present for a month now Has dizziness but not sure if this is from other conditions documented in this encounter Plan of Treatment Upcoming Encounters Date Type Department Care Team (Late st Contact Info) Description 04/03/2024 11:00 AM EST Office Visit [facility] [address] [place] [address] Yosvany Moe MD [address] [place] [address] 05/03/2024 9:00 AM EST Office Visit [facility] [place] [address] Adriel Whitaker MD [address] [place] [address] 09/05/2024 8:30 AM EDT Cardiac Studies Cardiac Studies, [facility] [address] [facility] [place], [place] [address] Scheduled Orders Name Type Priority Associated Diagnoses Orde r Schedule REMOVAL IMPACTED CERUMEN IRRIGATION/LAVAGE, UNILAT Procedures Routine Bilateral impacted cerumen Ordered: 03/26/2024 Scheduled Procedures Name Priority Associated Diagnoses Date/Ti [...] Comments DISCUSS TOBACCO CESSATION (REFER TO SMARTSET #1557) 1950 Alpha-1 Antitrypsin 1970 Hepatitis C Screening [...] COPD 03/26/2025 03/26/2024 Albumin/Creatinine Ratio 11/04/2025 11/04/2022, 01/0 10/2011 Lipid [...] as of this encounter Visit Diagnoses Diagnosis Bilateral impacted cerumen- Primary Impacted cerumen Impetigo documented in this encounter Advance Directives * Full Code (Latest Code Status on File) Date Activated Date Inactivated Comments 11/08/2022 11:27 AM 11/11/2022 4:51 PM Question Answer Comments Discussion of Advance Directives occurred with: Patient Care Teams Tank Washer Relationship Specialty Start Date End Date Adriel Whitaker MD [address] [place] [address] PCP - General Family Medicine 10/20/17 documented as of this encounter
--- OUTSIDE RECORDS SUMMARY | 2024-04-30 13:24 | External Medical Summary | Summary of Care ---
Author Name Unknown Organization [facility] Address [address] [place] [address] Phone [phone] Care Team Providers Care Database Management Specialist Name Role Phone Adriel Whitaker MD Primary Care Provider +1- [phone] Reason for Visit * Reason Comments Outpatient Testing Encounter Details Date Type Department Care Team (Late st Contact Info) Description 04/03/2024 11:40 AM EST Laboratory [facility] [place] [address] [place] [phone] [facility] [address] [place] [address] Cancer of ascending colon (HCC) Allergies Active Allergy Reactions Criticality [...] 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 Answer Date of Assessment Author No 11/08/2022 3:05 PM EDCarine Balderas RN * Are you blind or do [...] Carine Cole RN documented in this encounter Plan of Treatment Upcoming Encounters Date Type Department Care Team (Late st Contact Info) Description 05/03/2024 9:00 AM EST Office Visit [facility] Andreina Clarke [address] [place] [phone] Adriel Whitaker MD [address] [place] [address] 08/08/2024 11:00 AM EDT Office Visit Hematology/On[facility] [place] [facility] [phone] Yosvany Moe MD [address] [place] [address] 09/05/2024 8:30 AM EDT Cardiac Studies Cardiac Studies, [facility] [address] [facility] [place] [address] Pending Results Name Type Priority Associated Diagnoses Date /Time COMPREHENSIVE METABOLIC PANEL Lab Routine Cancer of ascending colon (HCC) 04/03/2024 11:41 AM EST CEA Lab Routine Cancer of ascending colon (HCC) 04/03/2024 11:41 AM EST Scheduled Procedures Name Priority Associated Diagnoses Date/Ti [...] Comments DISCUSS TOBACCO CESSATION (REFER TO SMARTSET #8422) 1950 Alpha-1 Antitrypsin 1970 Hepatitis C Screening [...] (4 - season) 2024 04/01/2021, 07/22/2020, 07/01/2020 GFR 11/20/2024 11/21/2023, 07/07, 04/05/2023, Additional history [...] Date/Time Associated Diagnosis Comments DIFFERENTIAL, AUTOMATED Routine 04/03/2024 11:41 AM EST Cancer of ascending colon (HCC) CBC Routine 04/03/2024 11:41 AM EST Cancer of ascending colon (HCC) CBC Routine 04/03/2024 11:41 AM EST Cancer of ascending colon (HCC) documented in this encounter Results * DIFFERENTIAL, AUTOMATED (04/03/2024 11:41 AM EST) WBC 9.00 4.00 - 10.80 K/uL 04/03/2024 11:49 AM EST [facility] 56-02 Neutrophils % 68.0 40.0 - 75.0 % 04/03/2024 11:49 AM EST [facility] 56-02 Lymphocytes % 21.6 18.0 - 42.0 % 04/03/2024 11:49 AM EST [facility] 56-02 Monocytes % 9.1 1.0 - 11.0 % 04/03/2024 11:49 AM EST [facility] 56- Eosinophils % 0.9 0.0 - 6.0 % 04/03/2024 11:49 AM EST [facility] 56- Basophils % 0.4 0.0 - 2.0 % 04/03/2024 11:49 AM EST [facility] 56- Absolute Neutrophils 6.12 1.80 - 7.70 K/uL 04/03/2024 11:49 AM [facility] 56- Absolute Lymphocytes 1.94 1.00 - 4.80 K/ul 04/03/2024 11:49 AM EST [facility] 56- Absolute Monocytes 0.82 0.00 - 1.10 K/uL 04/03/2024 11:49 AM [facility] 56- Absolute Eosinophils 0.08 0.00 - 0.70 K/uL 04/03/2024 11:49 AM [facility] 56- Absolute Basophils 0.04 0.00 - 0.20 K/uL 04/03/2024 11:49 AM [facility] 56 Blood Venous blood specimen / Unknown Venipuncture / Unknown 04/03/2024 11:41 AM EST 04/03/2024 11:41 AM EST Yosvany Moe MD LAB BLOOD ORDERABLES Fin al Result [facility] [address] [place] [address] * CBC (04/03/2024 11:41 AM EST) WBC 9.00 4.00 - 10.80 K/uL 04/03/2024 11:49 AM [facility] 56- RBC 4.10 3.85 - 5.15 M/uL 04/03/2024 11:49 AM [facility] 56- HGB 13.2 12.0 - 15.3 g/dL 04/03/2024 11:49 AM [facility] 56- HCT 40.1 36.0 - 45.2 % 04/03/2024 11:49 AM [facility] 56- MCV 97.8 81.5 - 97.5 fL 04/03/2024 11:49 AM EST [facility] 56 MCH 32.2 27.0 - 34.0 pg 04/03/2024 11:49 AM EST [facility] 56 MCHC 32.9 32.0 - 36.0 g/dL 04/03/2024 11:49 AM EST [facility] 56 RDW 12.5 11.5 - 15.5 % 04/03/2024 11:49 AM EST [facility] 56 PLT 178 140 - 400 K/uL 04/03/2024 11:49 AM EST [facility] 56 MPV 10.3 6.6 - 11.1 fL 04/03/2024 11:49 AM [facility] 56 Blood Venous blood specimen / Unknown Venipuncture / Unknown 04/03/2024 11:41 AM EST 04/03/2024 11:41 AM EST Yosvany Moe MD LAB BLOOD ORDERABLES Fin al Result [facility] [address] [place] [address] documented in this encounter Visit Diagnoses Diagnosis Cancer of ascending colon (HCC) Malignant neoplasm of ascending colon documented in this encounter Advance Directives * Full Code (Latest Code Status on File) Date Activated Date Inactivated Comments 11/08/2022 11:27 AM 11/11/2022 4:51 PM Question Answer Comments Discussion of Advance Directives occurred with: Patient Care Teams Database Management Specialist Relationship Specialty Start Date End Date Adriel Whitaker MD [address] [place] [facility] [place] [address] PCP - General Family Medicine 10/20/17 documented as of this encounter
--- OUTSIDE RECORDS SUMMARY | 2024-04-30 13:24 | External Medical Summary ---
Author Name Unknown Address Unknown Organization K01:[facility] [place] [address] [place] [address] Laboratory Report Ordering Provider Test Date Status [place]ENE [place] 04/03/2024 11:41:39 Final Observation Date Value Abnormality Reference (Units ) Status CEA 04/03/2024 11:41:39 6.0 Above high normal <= 5.2 (ng/mL) Final Performing Location [facility] - [address] [place] [address]
--- OUTSIDE RECORDS SUMMARY | 2024-04-30 13:25 | External Medical Summary | Summary of Care ---
Author Name Unknown Organization [facility] Address [address] [place] [address] Phone [phone] Care Team Providers Care Roof Assembler Name Role Phone Adriel Whitaker MD Primary Care Provider +1- [phone] Reason for Visit * Reason Onset Date Comments Hospital [facility] Encounter Details Date Type Department Care Team (Late st Contact Info) Description 02/28/[address] [address] Jazzy Luna, JP Hospital Follow-Up ([facility] ([facility])) Allergies Active Allergy Reactions Criticality [...] needed for Anxiety. 90 Tablet 01/24/2024 Active Fluticasone Propionate 50 MCG/ACT Nasal Suspension [...] mouth daily as needed for Constipation. Active documented as of this encounter (statuses [...] to be determined 08/25/2001 09/05/2009 Reflux esophagitis 08/03/201 5 PREMENSTRUAL TENSION 015 HTN, goal below 140/90 08/16 documented as of this encounter (statuses as of 02/28/2024) Immunizations Name Administration Dates Next Due Diptheria/Tetanus [...] Addendum Note - Jazzy Luna RN - 02/28/2024 4:03 PM EDTAddended by: JAZZY LUNA on: 02/28/2024 04:03 PM Modules accepted: Orders * Telephone Encounter - Jazzy Luna RN - 02/28/2024 9:58 AM EDT Transitions of Care Note Reason for Referral:Recent Admission Phone visit for follow up: [facility] #1 Admitted to: [facility], Date: 02/22/2024 Discharged to: Home, Date: 02/25/2024 Diagnosis driving hospitalization: Covid-19 Infection, Acute Metabolic Encephalopathy, Constipation Attempted Phone Call First Attempt Call Outcome Unable to Leave Message Mailbox full New medications: Fluticasone, Docusate sodium, Biscodyl, Prednisone, Cefuroxime Jazzy Luna RN Transitions of Care Note Reason for Referral:Recent Admission Phone visit for follow up: [facility] #2 Admitted to: [facility], Date: 02/22/2024 Discharged to: Home, Date: 02/25/2024 Diagnosis driving hospitalization: Covid-19 Infection, Acute Metabolic Encephalopathy, Constipation Source/Contact: Patient SUBJECTIVE Consent: Verbal consent for review of hospital discharge: Yes REVIEW OF SYSTEMS Patient/Other Reports: Current patient/caregiver problems or concerns: States she still feels very fatigued. Congestion/cough better. Up and around OK. No fever, No SOB. Finished Prednisone today. CV: Denies problems Pulmonary: Denies problems Chills/Sweats/Fever:Denies chills/sweats Denies fever Appetite:Denies problems such as nausea, vomiting, burning, decreased appetite Current diet: Regular Bowel: denies problems Bladder: denies problems Wound (If applicable): N/A Pain:Denies Sleep:Denies problems FUNCTIONAL STATUS: ADL'S: Needs Assistance With:N/A as pt is independent IADL'S: Needs Assistance With:N/A as pt is independent Cognitive and Mental Health: denies problems, alert and oriented x 3, and able to communicate, understand instructions, process information. MEDICATION RECONCILIATION Medications: Discharge med list reviewed with patient or caregiver New medications; Fluticasone, Docusate sodium, Bisacodyl, Prednisone, Cefuroxime ASSESSMENT Medication Risk Assessment: No risks identified Did patient fail outpatient treatment? No Discharge instructions available for review? Yes PLAN Symptom Monitoring Interventions:Member/caregiver education - signs and symptoms to contact PrimaryCare (DO NOT DELETE-Three olivarez symptoms patient is to report to PCP) 1. Chest Nails/SOB 2. Fever/chills 3. Any worsening symptoms Tanning Salon AttendantCd Reactor Operator of Care interventions/Action Plan: 5 - 7 day follow-up with PCP in place - Date: 03/01/2024 Educated on role of [facility] completed with patient/caregiver. Educated patient/caregiver on patient right to have input on [facility] plan of care. Verification of Home Health/DME if indicated: NA Identified Care Gaps: Yes Care Gaps closed this call: Appointment made or confirmed and Transition of Care follow-up communication Re-evaluation of Plan of Care and progress towards goals achievement: Patient education this visit: Verbal, Confirmed PCP appointment, discussed reasons to call sooner as above Plan to instructed to call Primary Care Provider with change in symptoms or as needed before next follow-up, discharge needs met, verbalizes understanding and agrees with plan. Jazzy Luna, RN documented in this encounter Plan of Treatment Upcoming Encounters Date Type Department Care Team (Late st Contact Info) Description 03/01/2024 11:20 AM EDT Office Visit [facility] [address] [place] [facility] [place] [phone] Adriel Whitaker MD [address] [place] [address] 03/07/2024 8:30 AM EDT Office Visit Cardiology, [facility] [address] [place] [address] Martin Ko DO [address] [place] [address] 04/03/2024 11:00 AM EST Office Visit Hematology/Oncology [facility] [address] [facility] [place] [phone] Yosvany Moe MD [address] [place] [address] 05/03/2024 9:00 AM EST Office Visit [facility] [address] [place] [facility] [place] [phone] Adriel Whitaker MD [address] [place] [address] Scheduled Procedures Name Priority Associated Diagnoses Date/Ti [...] Comments DISCUSS TOBACCO CESSATION (REFER TO SMARTSET #[id number]) 1950 Alpha-1 Antitrypsin 1970 Hepatitis C Screening [...] Advance Directives occurred with: Patient Care Teams Roof Assembler Relationship Specialty Start Date End Date Adriel Whitaker MD [address] [place] [address] PCP - General Family Medicine 10/20/17 documented as of this encounter
--- OUTSIDE RECORDS SUMMARY | 2024-04-30 13:25 | External Medical Summary | Summary of Care ---
Author Name Unknown Organization [facility] Address [address] [place] [address] Phone [phone] Care Team Providers Care Coverage Analyst Name Role Phone Adriel Whitaker MD Primary Care Provider +1- [phone] Reason for Visit * Reason Onset Date Comments Med Request 02/22/2024 Poss Sinus Infec tion Encounter Details Date Type Department Care Team (Late st Contact Info) Description 02/22/2024 Telephone [facility] [address] [place] [address] Adriel Whitaker MD [address] [place] [address] Med Request (Poss Sinus Infection) Allergies Active Allergy Reactions Criticality Noted Date Comments Cisapride 11/05/1998 diarrhea Doxycycline 11/05/1998 diarrhea Macrolides And Ketolides 05/17/2000 zithromax, diarrhea Salicylates 11/05/1998 intol documented as of this encounter (statuses as of 02/23/2024) Medications Medication Sig Dispensed Refills Start Date [...] needed for Anxiety. 90 Tablet 01/24/2024 Active documented as of this encounter (statuses as of 02/23/2024) Active Problems Problem Noted Date Diagnosed Date [...] as of this encounter (statuses as of 02/23/2024) Resolved Problems Problem Noted Date Diagnosed Date [...] as of this encounter (statuses as of 02/23/2024) Immunizations Name Administration Dates Next Due Pneumococcal [...] encounter Miscellaneous Notes * Telephone Encounter - Yarely Dunlap LPN [...] wasn't helping Additional Comment(s) Additional Comments: Faith Chavis is calling in wanting to know, if [...] 03/07/2024 8:30 AM EDT Office Visit Cardiology, [facility] [address] [place] [address] Martin Ko DO [address] [place] [address] 04/03/2024 11:00 AM EST Office Visit Hematology/Oncology [facility] [address] [place] [address] Yosvany Moe MD [address] [place] [address] 05/03/2024 9:00 AM EST Office Visit [facility] [address] [place] [phone] Adriel Whitaker MD [address], [place] [phone] Scheduled Procedures Name Priority Associated Diagnoses Date/Ti [...] Comments DISCUSS TOBACCO CESSATION (REFER TO SMARTSET #2551) 1950 Alpha-1 Antitrypsin 1970 Hepatitis C Screening [...] Advance Directives occurred with: Patient Care Teams Coverage Analyst Relationship Specialty Start Date End Date Adriel Whitaker MD [address] [place] [address] PCP - General Family Medicine 10/20/17 documented as of this encounter
--- OUTSIDE RECORDS SUMMARY | 2024-04-30 13:25 | External Medical Summary | Summary of Care ---
Author Name Unknown Organization [facility] Address [address] [place] [address] Phone [phone] Care Team Providers Care Wallet Assembler Name Role Phone Adriel Whitaker MD Primary Care Provider +1- [phone] Reason for Visit * Reason Onset Date Comments Hospital Follow-Up 02/28/2024 [facility] ([facility]) Encounter Details Date Type Department Care Team (Late st Contact Info) Description 02/28/[address] [address] Perri Luna, JP Hospital Follow-Up ([facility] ([facility])) Allergies Active Allergy Reactions Criticality Noted [...] Miscellaneous Notes * Telephone Encounter - Perri Luna, RN - 02/28/2024 9:58 AM EDT Transitions of Care Note Reason for Referral:Recent Admission Phone visit for follow up: [facility] #1 Admitted to: [facility], Date: 02/22/2024 Discharged to: Home, Date: 02/25/2024 Diagnosis driving hospitalization: Covid-19 Infection, Acute Metabolic Encephalopathy, Constipation Attempted Phone Call First Attempt Call Outcome Unable to Leave Message Mailbox full New medications: Fluticasone, Docusate sodium, Biscodyl, Prednisone, Cefuroxime Perri Luna RN documented in this encounter Plan of Treatment Upcoming Encounters Date Type Department Care Team (Late st Contact Info) Description 03/01/2024 11:20 AM EDT Office Visit [facility] [address] [place] [address] Adriel Whitaker MD [address] [place] [address] 03/07/2024 8:30 AM EDT Office Visit Cardiology, [facility] [address] [place] [address] Martin Ko, [address] [place] [address] 04/03/2024 11:00 AM EST Office Visit Hematology/Oncology [facility] [address] [facility] [place] [phone] Yosvany Moe MD [address] [place], [place] [address] 05/03/2024 9:00 AM EST Office Visit [facility] [address] [place] [address] Adriel Whitaker MD [address] [place] [address] Scheduled Procedures Name Priority Associated Diagnoses Date/Ti [...] Comments DISCUSS TOBACCO CESSATION (REFER TO SMARTSET #9100) 1950 Alpha-1 Antitrypsin 1970 Hepatitis C Screening [...] Advance Directives occurred with: Patient Care Teams Wallet Assembler Relationship Specialty Start Date End Date Adriel Whitaker MD [address] [place] [facility] [place] [address] PCP - General Family Medicine 10/20/17 documented as of this encounter
[2024-04-30] MEDS ORDERED: ALBUTEROL HFA 8 GM INHALER INH PRN (14:03)
[2024-04-30] MEDS ORDERED: FAMOTIDINE 20 MG TAB PO PRN (14:03)
[2024-04-30] MEDS ORDERED: ONDANSETRON INJ 2 MG/ML 2 ML VIAL IV PRN (14:03)
[2024-04-30] MEDS: ACETAMINOPHEN 325 MG TAB PO PRN (14:20)
[2024-04-30] MEDS: POTASSIUM CHLORIDE / WTR 10 MEQ/100 ML PLCT IV ONE (14:22)
[2024-04-30] MEDS: NSS + 20MEQ KCL 20 MEQ/1,000 ML BAG IV SCH (14:26)
--- NOTE | 2024-04-30 14:35 | Emergency Department Note ---
Impression & Plan Diverticulitis, Generalized weakness, Syncope and collapse ED Provider Note NAME: YA RIVERA AGE: 73 SEX: Female INFORMANT: Patient ED PROVIDER(S): Rigo Sharpe MD CHIEF COMPLAINT: Abdominal pain and weakness PLAN: Disposition: Admitted Outpatient prescription management: none Referral: None MEDICAL DECISION MAKING: Patient presented because of fall, syncope, generalized weakness and abdominal pain. She did have some tenderness in the lower abdomen. Workup was initiated. Patient's head CT was unremarkable. Abdominal CT was concerning for diverticulitis. CBC and chemistry panels were unremarkable. Patient was treated with IV Cipro and Flagyl after discussion with hospital pharmacist. Given the generalized weakness, diverticulitis and the syncope she will need further evaluation and management in the hospital. Patient's ECG did not reveal any acute findings. Normal rhythm. Cardiac monitoring was unremarkable as well. [facility] Patient was evaluated in ER and admitted for further management. Care/management discussed with: automation sales manager, hospital pharmacist Level of care consideration(s): After review of the information above and other included data, I feel the patient requires escalation of care to admission Triage Nursing notes: reviewed and agree them. Vital Signs: reviewed and remarkable for no significant abnormalities Additional History obtained from: none Chronic Medical/Social Conditions affecting care: COPD, GERD Prior/ Outside/ External records reviewed: none Differential Diagnosis: Infection, dehydration, metabolic abnormality, hypo/hyperglycemia, electrolyte disturbance, anemia, hypoxia, cardiac sources, intracerebral event, toxicologic, neurologic, as well as other pathologies. Diagnostics, independently interpreted by me: ECG: Twelve-lead ECG reveals normal sinus rhythm at 73 beats per minute. No evidence of pericarditis, ischemia, ectopy, or dysrhythmia. Cardiac Monitoring: Cardiac monitoring ordered by me: The patient was placed on continuous cardiac monitoring and observed. It revealed a normal sinus rhythm at 80 beats per minute without ectopy or evidence of dysrhythmia. Medical decision rules: none Imaging studies: Head CT: A noncontrast CT scan of the head was performed and was negative for tumor, fracture, intracranial hemorrhage, or other acute pathology.. CT scan of the abdomen pelvis is concerning for diverticulitis. HPI: 73 year old Female arrives for evaluation of abdominal pain and generalized weakness. This started over the last week and is persisting. Patient states that she got nauseated, had abdominal pain and also fell last night. She does not believe she hurt her self but think she may have passed out. The patient also notes the following associated symptoms, nausea, feeling dizzy. She notes she has a mild rash on her anterior abdominal wall but it is not itchy. The patient has found no relieving factors. Current pain is rated as 8/10. Pt denies headache, fevers, chills, diaphoresis, visual changes, neck pain, chest pain, breathing difficulties, vomiting back pain, melena, hematochezia, urinary symptoms, numbness, lymphadenopathy, rash, or other complaints.. PAST MEDICAL HISTORY: See Below, GERD, hypertension PAST SURGICAL HISTORY: See Below, SOCIAL HISTORY: See Below, HOME MEDICATIONS: See Below ALLERGIES: See Below VITALS: See Below PHYSICAL EXAMINATION: GENERAL: Awake, alert, uncomfortable-appearing, in no distress HENT: Normocephalic, atraumatic. Oropharynx unremarkable. EYES: Normal conjunctiva. Sclera non-icteric. NECK: Inspection normal. Non-tender. Supple. No nuchal rigidity. FROM. No masses. RESPIRATORY: Clear to auscultation. No wheezes. No rales. Normal respiratory effort. CARDIAC: Normal rate. Normal rhythm. No murmurs. No rubs. Extremities warm and well perfused. Pulses equal. No JVD. GI: Soft, non-distended. Left lower quadrant tenderness to palpation. No rebound or guarding. No masses. RECTAL: Deferred. MUSCULOSKELETAL: Cachectic. Atraumatic. Chest examination reveals no tenderness. The back is symmetrical on inspection without obvious abnormality. There is no CVA tenderness to palpation. No joint edema. LOWER EXTREMITIES: Calves are equal size bilaterally and non-tender. No edema. No discoloration. NEURO: Normal sensorium. No sensory or motor deficits noted but generally weak. SKIN: No rash or jaundice noted. PROCEDURES: none CRITICAL CARE: none OBSERVATION NOTE: None Past Med/Surg History Problem List (Updated 04/30/24 @ 14:35 by Rigo Sharpe MD) Syncope and collapse (Acute) Generalized weakness (Acute) Diverticulitis (Acute) Sigmoid diverticulitis Generalized weakness (Acute) Arthralgia COVID-19 (Acute) Generalized weakness JEANA (acute kidney injury) (Acute) Syncope (Acute) Acute dehydration (Acute) Weakness (Acute) Hypertensive crisis (Acute) Hyponatremia (Acute) Hypokalemia (Acute) Hypertension Recurrent falls (Acute) Anxiety GERD (gastroesophageal reflux disease) Dyslipidemia COPD (chronic obstructive pulmonary disease) (Acute) Medical History Acute dehydration Weakness AAA (abdominal aortic aneurysm) Surgical History S/P tubal ligation Family History Other Diabetes Social History Smoking Status: Current every day smoker Tobacco Type: Cigarettes packs per day: 0.5; Cigarettes Per Day: 5; Second Hand Exposure: Yes; Do You Dip or Chew Tobacco: No; Tobacco Cessation Education Requested by Patient: No Hx Alcohol Use: No Hx Substance Use: No Preferred Language: Martiniquais Communication Ability: Effective Filenet Architect Required: No Beliefs That Will Affect Care: None Current Living Situation: Spouse Current Living Situation Comment: [place] Other Information That Helps Us Care for You: No Feels Safe at Home: Yes Safety Concerns: Feels Safe At This Time Assistive Devices: Denture - Lower Allergies Allergies Allergy/AdvReac Type Severity Reaction Status Date / Time amoxicillin [From Augmentin] AdvReac Intermediate ABD Verified 02/22/24 16:30 PAIN/VOMITING azithromycin [From Zithromax] AdvReac Intermediate Diarrhea Verified 02/22/24 16:30 clavulanic acid AdvReac Intermediate ABD Verified 02/22/24 16:30 [From Augmentin] PAIN/VOMITING doxycycline AdvReac Intermediate Diarrhea Verified 02/22/24 16:30 Macrolide Antibiotics AdvReac Intermediate Diarrhea Verified 02/22/24 16:30 salicylates AdvReac Intermediate INTOLERANCE Verified 02/22/24 16:30 Tetracyclines AdvReac Intermediate Diarrhea Verified 02/22/24 16:30 Home Meds Home Medications Medication Instructions Recorded Confirmed albuterol sulfate 90 mcg/actuation 2 puff inhalation Q6H PRN 08/23/22 04/30/24 aerosol inhaler Shortness Of Breath Or Wheezing alprazolam 0.25 mg tablet 0.25 mg PO TID PRN anxiety 05/02/23 04/30/24 paroxetine HCl 12.5 mg 12.5 mg PO QAM 05/02/23 04/30/24 tablet,extended release 24 hr trazodone 100 mg tablet 50 mg PO HS 05/02/23 04/30/24 amlodipine 5 mg tablet 5 mg PO QAM 07/07/23 04/30/24 aspirin 81 mg chewable tablet 81 mg PO QAM 09/21/23 04/30/24 carvedilol 3.125 mg tablet 3.125 mg PO BID 09/21/23 04/30/24 Previous Rx's Medication Instructions Recorded docusate sodium 100 mg capsule 100 mg PO BID PRN Constipation #30 02/25/24 caps fluticasone propionate 50 2 spray NA DAILY PRN Nasal 02/25/24 mcg/actuation nasal congestion #16 grams spray,suspension Results & Data (ED) Vital Signs Vital Signs - 24 hr 04/30/24 10:00 04/30/24 10:25 04/30/24 11:27 Temperature 36.0 C L Temperature Source Axillary Pulse Rate - Lying 69 Pulse Rate - Sitting 75 Pulse Rate - Standing 74 Pulse Rate 88 73 Respiratory Rate 20 Respiratory Effort / Characteristics Non-Labored Spontaneous Respiratory Depth Normal Respiratory Pattern Regular Blood Pressure - Lying 170/87 H Blood Pressure - Sitting 191/91 H Blood Pressure- Standing 175/79 H Blood Pressure 106/67 Blood Pressure Mean 80 Pulse Oximetry 98 Oxygen Delivery Method Room Air Sepsis Recent Fever Within 48 Hours No Sepsis New/Unexplained Change in Mental Status N/A Sepsis Action Taken by Nursing No Action Required Laboratory Data 04/30/24 10:15 04/30/24 10:15 Lab Results 04/30/24 04/30/24 04/30/24 Range/Units 10:15 10:52 11:24 WBC 8.42 (4.8-10.8) K/ul RBC 3.49 L (4.20-5.40) M/uL Hgb 11.0 L (12.0-16.0) g/dl Hct 32.8 L (37.0-47.0) % MCV 94.0 (80.0-100.0) fL MCH 31.5 (25.0-34.0) pg MCHC 33.5 (32.0-36.0) g/dL RDW Std Deviation 42.2 (36.4-46.3) fL RDW Coeff of [place] 12.1 (11.5-14.5) % Plt Count 133 (130-400) K/uL MPV 10.5 (9.4-12.4) fL Immature Gran % (Auto) 0.5 % Neut % (Auto) 71.5 % Lymph % (Auto) 17.1 % [place] % (Auto) 9.9 % Eos % (Auto) 0.6 % Baso % (Auto) 0.4 % Neut # (Auto) 6.03 (1.40-6.50) K/uL Lymph # (Auto) 1.44 (1.20-3.40) K/uL [place] # (Auto) 0.83 H (0.11-0.59) K/uL Eos # (Auto) 0.05 (0.00-0.50) K/uL Baso # (Auto) 0.03 (0.00-0.20) K/uL Immature Gran # (Auto) 0.04 (0.01-0.20) K/uL Sodium 137 (136-145) mmol/L Potassium 3.4 L (3.5-5.1) mmol/L Chloride 99 (98-107) mmol/L Carbon Dioxide 32 (21-32) mmol/L Anion Gap 6 (3-11) BUN 31 H (6-23) mg/dl Creatinine 1.16 (0.6-1.2) mg/dl Est Cr Clr Drug Dosing 30.7 ml/min eGFR 50.40 BUN/Creatinine Ratio 26.7 H (10-20) Glucose 124 H (70-99(Fasting)) mg/dl Calcium 9.1 (8.6-10.3) mg/dl Magnesium 2.3 (1.7-2.4) mg/dl Total Bilirubin 0.6 (0.2-1.0) mg/dl AST 13 (13-39) U/L ALT 12 (7-52) U/L Alkaline Phosphatase 43 (34-104) U/L Troponin I High Sens 8.3 (0-14) pg/ml Total Protein 6.3 (6.0-8.3) gm/dl Albumin 3.6 (3.4-5.0) gm/dl Globulin 2.7 (2.5-4.0) gm/dl Albumin/Globulin Ratio 1.3 (0.9-2) TSH 0.945 (0.300-4.500) uIu/ml Urine Color Yellow Urine Appearance Clear (Clear) Urine pH 6.0 (4.5-7.5) Ur Specific [place] 1.011 (1.000-1.030) Urine Protein Trace H (Negative) Urine Glucose (UA) Negative (Negative) Urine Ketones Negative (Negative) Urine Blood Negative (Negative) Urine Nitrite Negative (Negative) Urine Bilirubin Negative (Negative) Urine Urobilinogen Negative (Negative) Ur Leukocyte Esterase Negative (Negative) Urine WBC (Auto) 0-5 (0-5) /hpf Urine RBC (Auto) 0-2 (0-2) /hpf U Hyaline Cast (Auto) 6-10 H (0-2) /lpf U Epithel Cells (Auto) 0-2 (0-2) /hpf Urine Bacteria (Auto) 1+ H (None Seen) Granular Casts Present A (None Prsent) /lpf Adenovirus (PCR) Not Detected (NotDetected) B. pertussis DNA (PCR) Not Detected (NotDetected) B.parapertussis DNA PCR Not Detected (NotDetected) C. pneumoniae DNA (PCR) Not Detected (NotDetected) Coronavirus OC43 (PCR) Not Detected (NotDetected) Coronavirus HKU1 (PCR) Not Detected (NotDetected) Coronavirus 229E (PCR) Not Detected (NotDetected) SARS-CoV-2 (PCR) DETECTED A (NotDetected) Coronavirus NL63 (PCR) Not Detected (NotDetected) Human Metapneumovir PCR Not Detected (NotDetected) Influenza Type A (PCR) Not Detected (NotDetected) Influenza Type B (PCR) Not Detected (NotDetected) M. pneumoniae (PCR) Not Detected (NotDetected) Parainfluenza 1 (PCR) Not Detected (NotDetected) Parainfluenza 2 (PCR) Not Detected (NotDetected) Parainfluenza 3 (PCR) Not Detected (NotDetected) Parainfluenza 4 (PCR) Not Detected (NotDetected) RSV (PCR) Not Detected (NotDetected) Entero/Rhino (PCR) Not Detected (NotDetected) Administered Medications Acetaminophen (Acetaminophen 325 Mg Tab) 650 mg PO Q4H PRN PRN Reason: Pain or Fever Stop: 05/30/24 14:02 Last Admin: 04/30/24 14:20 Dose: 650 mg Documented By: CLIF Potassium Chloride/Sodium Chloride (Normal Saline W/20 Meq Kcl) 20 meq in 1,000 mls @ 60 mls/hr IV .[id number] KEELY Stop: 05/01/24 14:02 Last Admin: 04/30/24 14:26 Dose: 60 mls/hr Documented By: CLIF Nicotine (Nicotine 14 Mg/24 Hr Patch) 1 patch TD QAM [facility] Stop: 05/30/24 14:02 Last Admin: 04/30/24 14:49 Dose: 1 patch Documented By: CLIF Discontinued Medications Sodium Chloride (Nss) 500 mls @ 999 mls/hr IV .Q31M ONE Stop: 04/30/24 11:05 Last Infusion: 04/30/24 11:15 Dose: Infused Documented By: Admin: 04/30/24 10:49 Dose: 999 mls/hr Documented By: KAYLAH Sodium Chloride (Nss) 1,000 mls @ 125 mls/hr IV .Q8H [facility] Stop: 05/01/24 10:44 Last Infusion: 04/30/24 14:12 Dose: Infused Documented By: Admin: 04/30/24 11:15 Dose: 125 mls/hr Documented By: KAYLAH Acetaminophen 650 mg/ EMPTY (BAG) 65 mls @ 260 mls/hr IV NOW STA Stop: 04/30/24 10:36 Last Infusion: 04/30/24 11:30 Dose: Infused Documented By: Admin: 04/30/24 11:14 Dose: 260 mls/hr Documented By: KAYLAH Ciprofloxacin (Cipro / D5w) 400 mg in 200 mls @ 100 mls/hr IV NOW STA; Protocol Stop: 04/30/24 13:21 Last Infusion: 04/30/24 14:12 Dose: Infused Documented By: Admin: 04/30/24 11:38 Dose: 100 mls/hr Documented By: KAYLAH Metronidazole (Flagyl) 500 mg in 100 mls @ 100 mls/hr IV NOW STA; Protocol Stop: 04/30/24 12:21 Last Infusion: 04/30/24 12:46 Dose: Infused Documented By: Admin: 04/30/24 11:38 Dose: 100 mls/hr Documented By: KAYLAH Potassium Chloride (K Jb / Wtr) 10 meq in 100 mls @ 100 mls/hr IV ONE ONE Stop: 04/30/24 14:21 Last Infusion: 04/30/24 15:57 Dose: Infused Documented By: Infusion: 04/30/24 14:51 Dose: 50 mls/hr Documented By: Infusion: 04/30/24 14:43 Dose: 75 mls/hr Documented By: Admin: 04/30/24 14:22 Dose: 100 mls/hr Documented By: CLIF Ondansetron HCl (Ondansetron Inj 2 Mg/Ml 2 Ml Vial) 4 mg IV NOW STA Stop: 04/30/24 10:36 Last Admin: 04/30/24 10:46 Dose: 4 mg Documented By: KAYLAH Imaging Data Radiologist's Impression: Chest X-Ray 04/30/24 10:25 XR chest 1V portable CLINICAL HISTORY: weakness COMPARISON STUDY: Chest CT August 23, 2022. Chest radiograph February 22, 2024. FINDINGS: Lung volumes are normal. Lungs are clear. There is no pneumothorax or pleural effusion. Cardiac size is normal. Mediastinal contours are normal. There is no evidence for pulmonary edema. Status post distal right clavicular resection. IMPRESSION: No acute cardiopulmonary findings. ACT 112: Negative or not required by law. Electronically signed by: Chris Carter M.D. 04/30/2024 10:[address] 04/30/24 10:25 CT head/brain wo con CLINICAL HISTORY: fall, syncope Technique: Contiguous axial CT images of the head were acquired from the base of the skull to the vertex without intravenous contrast administration. Images were viewed in brain, subdural and bone windows. Automated dose lowering techniques and/or adjustment according to patient size were utilized for this exam. Comparison: Comparison is made to CT head 02/24/2024 Findings: The ventricles, basal cisterns, and cerebral sulci are normal. There is no acute intracranial hemorrhage or evidence of acute territorial infarction. Neither mass effect, shift of the midline structures, nor abnormal extra-axial fluid collections are shown. Imaged portions of the paranasal sinuses and mastoid air cells are clear. The orbits appear normal. There are no acute fractures of the calvaria or scalp swelling. Impression: No acute intracranial hemorrhage, no evidence of acute territorial infarction or other acute intracranial disease process. ACT 112: Negative or not required by law. Electronically signed by: Fransisco Arredondo M.D. 04/30/2024 11:03 AM Abdomen/Pelvis CT 04/30/24 10:35 CT OF THE ABDOMEN AND PELVIS WITHOUT CONTRAST CLINICAL HISTORY: Lower abdominal pain and nausea. Syncope. COMPARISON STUDY: CT of the abdomen and pelvis September 21, 2023. KUB February 25, 2024. Pelvic ultrasound February 03, 2023. TECHNIQUE: Axial images of the abdomen and pelvis were obtained without IV contrast. Images were reviewed in the axial, sagittal, and coronal planes. Automated exposure control was utilized for the study. A dose lowering technique was utilized adhering to the principles of ALARA. FINDINGS: Lung bases are unremarkable. A 4 cm distal descending thoracic aortic aneurysm is unchanged since prior CT. Evaluation of the abdomen and pelvis is suboptimal on this unenhanced examination. Mild left hydronephrosis is similar to prior CT. There are no urinary calculi. There is no right hydronephrosis. Stents of aortoiliac atherosclerotic plaque is present. There is a 3 cm infrarenal abdominal aortic aneurysm without evidence for rupture. Unenhanced images of the liver, spleen, adrenal glands and pancreas are grossly unremarkable. There is no evidence for a bowel obstruction. There is a moderate amount of stool within the colon and rectum. Colonic diverticulosis is present. There is wall thickening with mild inflammation adjacent to the sigmoid colon. There is no free air. No abscess is present. There is no abdominal or pelvic lymphadenopathy. A 2.7 cm hyperdense right adnexal focus is present. There is no free fluid. No acute fractures are present. Mild compression deformity of L5 is chronic. Status post right hemicolectomy. IMPRESSION: 1. Colonic diverticulosis. Sigmoid colon wall thickening with mild adjacent inflammation. This may represent mild acute sigmoid diverticulitis. 2. No bowel obstruction status post right hemicolectomy. 3. Mild left hydronephrosis. The etiology is unclear however this is similar to prior CT. 4. No change in a 4 cm distal descending thoracic aortic aneurysm and a 3 cm infrarenal abdominal aortic aneurysm. 5. Moderate amount of stool within the colon and rectum. 6. 2.7 cm hyperdense focus within the right adnexa. This could represent the right ovary although is denser than expected. Nonemergent pelvic ultrasound is recommended. ACT 112: Negative or not required by law. Electronically signed by: Chris Carter M.D. 04/30/2024 10:56 AM Discharge Plan Visit Data Chief Complaint: Fall Stated Complaint: FALL, DIZZINESS, HEADACHE, CONFUSION, WEAKNESS ED Provider: Rigo Sharpe Discharge Problem: Diverticulitis, Generalized weakness, Syncope and collapse Patient Disposition: Admitted As Inpatient
--- NOTE | 2024-04-30 14:35 | Ultrasound Report ---
Clinical History: Syncope Technique: Carotid sonography was performed Findings: There is extensive calcified atherosclerotic plaque within the common carotid, internal carotid, and external carotid arteries bilaterally. There appears to be a severe stenosis of the distal left common carotid artery and there is possible occlusion of the left internal carotid artery. There are moderate severity stenosis of the distal right CCA and the right carotid bulb. Antegrade flow is seen within both vertebral arteries. Peak systolic velocities are as follows: Right common carotid artery: 90 cm per second Right internal carotid artery: 149 cm per second Right external carotid artery: 151 cm per second Right ICA/CCA PSV ratio: 1.7 Left common carotid artery: 61 cm per second Left internal carotid artery: Possible occlusion Left external carotid artery: 132 cm per second Impression: 1. Extensive atherosclerosis with suspected occlusion of the left ICA and a severe stenosis of the distal left CCA. Neck CTA could be considered for further evaluation 2. 50-69% diameter stenosis of the distal right CCA and right carotid bulb Electronically signed by Truong Mantilla 04-30-2024 2:35 PM
--- NOTE | 2024-04-30 14:38 | Ultrasound Report ---
Clinical History: Follow-up from CT Comparison is made to the prior ultrasound dated 02/03/2053 Technique: Transabdominal pelvic sonography was performed. Findings: The endometrial stripe measures 3 mm, within normal limits. No uterine mass lesion is seen. Overall, the uterus measures 4.8 x 2.7 cm in size. The left ovary was not clearly seen. The right ovary could not be visualized also. No free fluid is seen within the pelvis. The visualized urinary bladder appears unremarkable. Impression: 1. No definite uterine abnormality 2. Non-visualization of the ovaries Electronically signed by Truong Mantilla 04-30-2024 2:37 PM
[2024-04-30] MEDS: NICOTINE 14 MG/24 HR PATCH TD SCH (14:49)
[2024-04-30] MEDS: CIPROFLOXACIN / D5W 400 MG/200 ML BAG IV SCH (20:16)
[2024-04-30] MEDS: HEPARIN SOD 5,000 UNIT/0.5 ML VIAL SQ SCH (20:16)
[2024-04-30] MEDS: metroNIDAZOLE 500 MG/100 ML BAG IV SCH (20:16)
[2024-04-30] MEDS: traZODone HCL 50 MG TAB PO SCH (20:16)
[2024-04-30] MEDS: carvediloL 3.125 MG TAB PO SCH (20:16)
[2024-04-30] MEDS ORDERED: MELATONIN 3 MG TAB PO PRN (21:00)
[2024-05-01] MEDS: ALPRAZolam 0.25 MG TABLET PO PRN (05:35)
[2024-05-01 06:44] LABS: Basophils # (auto) 0.03 K/uL (0.00-0.20); Basophils % (auto) 0.6 %; Eosinophils # (auto) 0.07 K/uL (0.00-0.50); Eosinophils % (auto) 1.3 %; Hematocrit (blood only) 33.1 % (37.0-47.0); Hemoglobin 11.2 g/dl (12.0-16.0); Immature Granulocytes # (auto) 0.02 K/uL (0.01-0.20); Immature Granulocytes % (auto) 0.4 %; Lymphocytes # (auto) 0.79 K/uL (1.20-3.40); Lymphocytes % (auto) 14.7 %; Mean Corpuscular Hemoglobin 31.6 pg (25.0-34.0); Mean Corpuscular Hgb Conc 33.8 g/dL (32.0-36.0); Mean Corpuscular Volume 93.5 fL (80.0-100.0); Mean Platelet Volume 10.2 fL (9.4-12.4); Monocytes # (auto) 0.48 K/uL (0.11-0.59); Monocytes % (auto) 8.9 %; Neutrophils # (auto) 3.99 K/uL (1.40-6.50); Neutrophils % (auto) 74.1 %; Platelet Count 120 K/uL (130-400); RDW Coefficient of Variation 11.8 % (11.5-14.5); RDW Standard Deviation 40.4 fL (36.4-46.3); Red Blood Count 3.54 M/uL (4.20-5.40); White Blood Count 5.38 K/ul (4.8-10.8)
[2024-05-01 07:15] LABS: Albumin Globulin Ratio 1.4 (0.9-2); Albumin Level 3.5 gm/dl (3.4-5.0); BUN Creatinine Ratio 20.5 (10-20); Bilirubin,Total 0.5 mg/dl (0.2-1.0); Calcium 8.6 mg/dl (8.6-10.3); Creatinine Clr Calc Pharmacy 44.9 ml/min; Globulin 2.5 gm/dl (2.5-4.0); Potassium 3.7 mmol/L (3.5-5.1)
[2024-05-01] MEDS: ASPIRIN 81 MG CHEW PO SCH (08:30)
[2024-05-01] MEDS: ADVANCED PROBIOTIC 625 MG CAPSULE PO SCH (08:31)
--- NOTE | 2024-05-01 08:56 | Hospitalist Progress Note ---
Date of Service May 01, 2024 Assessment & Plan (1) Syncope and collapse: (2) Occlusion of left internal carotid artery: (3) Hypertrophic cardiomyopathy: (4) Sigmoid diverticulitis: (5) COVID-19: Plan Faith Chavis is a 73-year-old female with past medical history of HLD, COPD, HTN, anterior cerebral artery aneurysm, abdominal aortic aneurysm, descending thoracic aortic aneurysm, adenocarcinoma of colon s/p right hemicolectomy in 2022, basal septal hypertrophic cardiomyopathy, chronic left internal carotid artery occlusion, palpitations, GERD, protein-calorie malnutrition, tobacco use disorder and anxiety/depression who presented to the ED on 04/30/2024 secondary to syncopal episodes. Recent Syncopal Events Chronic Left ICA Occlusion, Hypertrophic Cardiomyopathy: Head CT on admission was unremarkable. Orthostatics in ED were unremarkable. Syncopal evaluation including carotid doppler ultrasound redemonstrated her extensive atherosclerosis with evidence of chronic left ICA occlusion which has previously already been evaluated by [facility] last October with cervical + cerebral angiogram. Her prior angiogram was performed by Dr. Ari Toney at [facility]. We were able to get ahold of Dr. Toney via TT for curbside recommendations --> Reports he tried to get the patient to come back into his office for further treatment however she has not seen him since last October. We were able to discuss her carotid doppler findings as per above, mentions he would not do anything specifically for this finding at least for the time being. If she were to develop a bad headache or altered mental status, he recommends obtaining a CT to rule out subarachnoid hemorrhage in the setting of her known anterior communicating artery aneurysm. Given the patient's known basal septal hypertrophic cardiomyopathy and close establishment with Dr. Ko, cardiology was consulted for further recommendations/input regarding her syncopal events. Resting echocardiogram results --> moderate concentric LVH, normal LV wall motion, LVEF is 65 to 70%, grade 1 diastolic dysfunction, moderate aortic valve sclerosis without significant stenosis and trace mitral regurgitation. Per cardiology, patient's presentation appears to be noncardiac in nature/etiology --> "Underlying pathologies would make patient more likely to suffer a vasovagal or hypotensive syncopal event in the setting of acute abdomi nal pain and diverticulitis." Advised to continue beta-donovan and aspirin. Will resume statin therapy - rosuvastatin 20mg/daily (which she was previously on; stopped for unknown reasons). Patient will need outpatient vascular surgery follow-up per cardiology's recommendation. Continuing telemetry monitoring - has been benign thus far. No further cardiologic workup warranted at this time. Of note, patient with multiple skin tears following her recent syncopal events therefore WO is involved with helping to manage this with appropriate dressings/wound care. PT/OT consulted. Acute Sigmoid Diverticulitis: CTAP on admission concerning for mild acute sigmoid diverticulitis. Patient was initially started on IV ciprofloxacin/Flagyl. Ciprofloxacin should be used with caution in patients with aortic dilation or known aortic aneurysms, therefore patient was transitioned to IV ertapenem. Ciprofloxacin/Flagyl discontinued. Probiotic on board. Continue PRN abdominal pain control. COVID-19 Positive: Suspect this is not reinfection as the patient does not have any respiratory symptoms although she is endorsing some generalized weakness. Patient recently was diagnosed with COVID-19 in February. Chest x-ray on admission was unremarkable. Will continue with isolation precautions for now. Continue to closely monitor respiratory status. Incidental CTAP Finding: CTAP as per above incidentally noted a 2.7cm hyperdense focus within the right adnexa which could represent right ovary although was denser than expected. Pelvic ultrasound was obtained which did not show any evidence of a definite uterine abnormality. This test unfortunately did not allow for visualization of the ovaries. This finding can further be worked up as an outpatient unless her abdominal pain does not improve on the IV antibiotic above ISO her acute sigmoid diverticulitis; would then pursue further imaging/testing while inpatient regarding this finding. H/O Colon Cancer S/P Surgery: Patient with prior history of adenocarcinoma of colon. Underwent laparoscopic right hemicolectomy in October 2022. Currently under observation with Dr. Moe. Other Chronic Medical Conditions: * Tobacco Use Disorder - Still smokes 0.5ppd, nicotine patch ordered. Encourage smoking cessation. * COPD - No evidence of acute exacerbation, continue home meds. Severe Protein- Calore Malnutrition - Nutrition consulted. * Known 3.8cm descending thoracic aortic aneurysm and 3.0cm abdominal aortic aneurysm - follows with Dr. Garcia at [facility]. 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 DVT Prophylaxis: SQ Heparin Code Status: FULL CODE PCP: Adriel Whitaker MD Disposition: Admitted in Med/Telemetry - Likely to remain admitted for the next 2-3 days depending on her clinical course. Patient seen in collaboration with Dr. Milton. Please see addendum. I spent a total of 65 minutes coordinating, documenting, and providing care for this patient excluding time spent in the performance of separately billed services. This included personally reviewing all current laboratories and imaging studies, medical reconciliation, outpatient chart review and discussion with specialists. This chart was completed in part utilizing Speech Voice Recognition Software. Grammatical errors, random word insertions, pronoun errors, and incomplete sentences are an occasional consequence of this system due to software limitations, ambient noise, and hardware issues. Any formal questions or concerns about the content, text, or information contained within the body of this dictation should be directly addressed to the provider for clarification. Admission and Anticipated Discharge Date Admission Date: April 30, 2024 Supervising Physician Co-Signing Physician Notes Pt seen and examined by me , care coordinated w/ ANDREY, pls refer to her note above for further detail. Pt is laying in bed in NAD, + abdominal pain- reports chronic since her surgery but somewhat worsened in the past several days - diagnosed w/ mild diverticulitis. Abx changed from fluoroquinolone to ertapenem given known aneurysms. Pt also had 2 syncopal episodes prior to coming to ED, reports "blacking out". US carotids ordered on admission , results reviewed, also her outpt chart reviewed - pt follows w/ neurosurg. Dr. Toney, and [facility] cardi[facility] Dr. Ko. Has hx of chronic left internal carotid artery occlusion - per chart review from September 2023 - there are collaterals from left occipital artery to the left vertebral artery. Discussed w/ Dr. Toney over TT - no change in management, recommend to follow up as outpt. Monitor for AMS or AVILA. Will also further discuss her syncopal episodes w/ cardiology. Cont. to closely monitor. MD Yoan Subjective Patient seen and examined this morning at bedside with Dr. Milton. Endorses ongoing lower abdominal pain. Patient has been experiencing some abdominal pain since her right hemicolectomy last year for treatment of colon cancer however it has significantly worsened over the past few days. Mentions she had 2 episodes of syncope yesterday prior to arrival to the emergency department - 1 incidence including where she "blacked out." We discussed her carotid doppler findings which are consistent with her chronic left internal carotid artery occlusion - she has been seen by [facility] regarding this. Review of Systems Review of Systems: At least ten systems reviewed and negative, except as noted in the subjective section. Physical Exam Physical Exam: General: Frail elderly F, NAD, sitting up in bed, conversing appropriately. A+Ox3, somewhat tearful affect during conversation. HEENT: Normocephalic, atraumatic. Conjunctivae normal, anicteric sclerae. External ear and nose normal, oropharynx normal. Respiratory: Normal respiratory effort, lungs clear to auscultation, no wheeze/rales/rhonchi. No accessory muscle use. Cardiovascular: Regular rate, rhythm, normal peripheral pulses, no BLE edema. Vessels: No JVD. Abdomen/GI: Normal bowel sounds, soft but slightly distended, tender to palpation across lower abdominal region. Extremities/Musculoskeletal: No cyanosis or clubbing, extremities motor strength intact, moves all extremities. Neurologic: No overt focal deficits, CN's II-XI not formally tested but appear grossly intact bilaterally. Results & Data Results & Data Vital Signs (Past 12 Hours) Vital Signs Temp Pulse Pulse Resp BP Pulse Ox O2 Del Method 05/01/24 07:46 70 05/01/24 07:42 36.5 C 65 18 153/69 H 97 Room Air 05/01/24 03:50 36.6 C 77 20 171/72 H 96 Room Air 04/30/24 23:42 66 04/30/24 23:11 37 C 68 18 113/69 96 Room Air Laboratory Results Short CBC 04/30/24 05/01/24 Range/Units 10:15 06:13 WBC 8.42 5.38 (4.8-10.8) K/ul Hgb 11.0 L 11.2 L (12.0-16.0) g/dl Hct 32.8 L 33.1 L (37.0-47.0) % Plt Count 133 120 L (130-400) K/uL BMP 04/30/24 05/01/24 10:15 06:13 Sodium 137 139 Potassium 3.4 L 3.7 Chloride 99 104 Carbon Dioxide 32 31 BUN 31 H 17 Creatinine 1.16 0.83 D Glucose 124 H 103 H Calcium 9.1 8.6 Liver Function 04/30/24 05/01/24 Range/Units 10:15 06:13 Total Bilirubin 0.6 0.5 (0.2-1.0) mg/dl AST 13 15 (13-39) U/L ALT 12 11 (7-52) U/L Alkaline Phosphatase 43 42 (34-104) U/L Albumin 3.6 3.5 (3.4-5.0) gm/dl Urine 04/30/24 Range/Units 11:24 Urine Color Yellow Urine Appearance Clear (Clear) Urine pH 6.0 (4.5-7.5) Ur Specific [facility] 1.011 (1.000-1.030) Urine Protein Trace H (Negative) Urine Glucose (UA) Negative (Negative) Diagnostic Findings Chest X-Ray 04/30/24 10:25 XR chest 1V portable CLINICAL HISTORY: weakness COMPARISON STUDY: Chest CT August 23, 2022. Chest radiograph February 22, 2024. FINDINGS: Lung volumes are normal. Lungs are clear. There is no pneumothorax or pleural effusion. Cardiac size is normal. Mediastinal contours are normal. There is no evidence for pulmonary edema. Status post distal right clavicular resection. IMPRESSION: No acute cardiopulmonary findings. ACT 112: Negative or not required by law. Electronically signed by: Chris Carter M.D. 04/30/2024 10:[address] 04/30/24 10:25 CT head/brain wo con CLINICAL HISTORY: fall, syncope Technique: Contiguous axial CT images of the head were acquired from the base of the skull to the vertex without intravenous contrast administration. Images were viewed in brain, subdural and bone windows. Automated dose lowering techniques and/or adjustment according to patient size were utilized for this exam. Comparison: Comparison is made to CT head 02/24/2024 Findings: The ventricles, basal cisterns, and cerebral sulci are normal. There is no acute intracranial hemorrhage or evidence of acute territorial infarction. Neither mass effect, shift of the midline structures, nor abnormal extra-axial fluid collections are shown. Imaged portions of the paranasal sinuses and mastoid air cells are clear. The orbits appear normal. There are no acute fractures of the calvaria or scalp swelling. Impression: No acute intracranial hemorrhage, no evidence of acute territorial infarction or other acute intracranial disease process. ACT 112: Negative or not required by law. Electronically signed by: Fransisco Arredondo M.D. 04/30/2024 11:03 AM Abdomen/Pelvis CT 04/30/24 10:35 CT OF THE ABDOMEN AND PELVIS WITHOUT CONTRAST CLINICAL HISTORY: Lower abdominal pain and nausea. Syncope. COMPARISON STUDY: CT of the abdomen and pelvis September 21, 2023. KUB February 25, 2024. Pelvic ultrasound February 03, 2023. TECHNIQUE: Axial images of the abdomen and pelvis were obtained without IV contrast. Images were reviewed in the axial, sagittal, and coronal planes. Automated exposure control was utilized for the study. A dose lowering technique was utilized adhering to the principles of ALARA. FINDINGS: Lung bases are unremarkable. A 4 cm distal descending thoracic aortic aneurysm is unchanged since prior CT. Evaluation of the abdomen and pelvis is suboptimal on this unenhanced examination. Mild left hydronephrosis is similar to prior CT. There are no urinary calculi. There is no right hydronephrosis. Stents of aortoiliac atherosclerotic plaque is present. There is a 3 cm infrarenal abdominal aortic aneurysm without evidence for rupture. Unenhanced images of the liver, spleen, adrenal glands and pancreas are grossly unremarkable. There is no evidence for a bowel obstruction. There is a moderate amount of stool within the colon and rectum. Colonic diverticulosis is present. There is wall thickening with mild inflammation adjacent to the sigmoid colon. There is no free air. No abscess is present. There is no abdominal or pelvic lymphadenopathy. A 2.7 cm hyperdense right adnexal focus is present. There is no free fluid. No acute fractures are present. Mild compression deformity of L5 is chronic. Status post right hemicolectomy. IMPRESSION: 1. Colonic diverticulosis. Sigmoid colon wall thickening with mild adjacent inflammation. This may represent mild acute sigmoid diverticulitis. 2. No bowel obstruction status post right hemicolectomy. 3. Mild left hydronephrosis. The etiology is unclear however this is similar to prior CT. 4. No change in a 4 cm distal descending thoracic aortic aneurysm and a 3 cm infrarenal abdominal aortic aneurysm. 5. Moderate amount of stool within the colon and rectum. 6. 2.7 cm hyperdense focus within the right adnexa. This could represent the right ovary although is denser than expected. Nonemergent pelvic ultrasound is recommended. ACT 112: Negative or not required by law. Electronically signed by: Chris Carter M.D. 04/30/2024 10:56 AM Pelvis Ultrasound 04/30/24 12:32 Clinical History: Follow-up from CT Comparison is made to the prior ultrasound dated 02/03/2053 Technique: Transabdominal pelvic sonography was performed. Findings: The endometrial stripe measures 3 mm, within normal limits. No uterine mass lesion is seen. Overall, the uterus measures 4.8 x 2.7 cm in size. The left ovary was not clearly seen. The right ovary could not be visualized also. No free fluid is seen within the pelvis. The visualized urinary bladder appears unremarkable. Impression: 1. No definite uterine abnormality 2. Non-visualization of the ovaries Electronically signed by Truong Mantilla 04-30-2024 2:37 PM Carotid Doppler Study 04/30/24 13:01 Clinical History: Syncope Technique: Carotid sonography was performed Findings: There is extensive calcified atherosclerotic plaque within the common carotid, internal carotid, and external carotid arteries bilaterally. There appears to be a severe stenosis of the distal left common carotid artery and there is possible occlusion of the left internal carotid artery. There are moderate severity stenosis of the distal right CCA and the right carotid bulb. Antegrade flow is seen within both vertebral arteries. Peak systolic velocities are as follows: Right common carotid artery: 90 cm per second Right internal carotid artery: 149 cm per second Right external carotid artery: 151 cm per second Right ICA/CCA PSV ratio: 1.7 Left common carotid artery: 61 cm per second Left internal carotid artery: Possible occlusion Left external carotid artery: 132 cm per second Impression: 1. Extensive atherosclerosis with suspected occlusion of the left ICA and a severe stenosis of the distal left CCA. Neck CTA could be considered for further evaluation 2. 50-69% diameter stenosis of the distal right CCA and right carotid bulb Electronically signed by Truong Mantilla 04-30-2024 2:35 PM
[2024-05-01] MEDS: ERTAPENEM 1000MG 1,000 MG/10 ML SYR IV SCH (09:54)
[2024-05-01] MEDS: PARoxetine HCl CONTROLLED REL 12.5 MG TABCR PO SCH (09:54)
--- NOTE | 2024-05-01 11:24 | Cardiology Consultation ---
Date of Consultation May 01, 2024 Assessment & Plan (1) Sigmoid diverticulitis: (2) Generalized weakness: (3) Syncope and collapse: (4) Hypertrophic cardiomyopathy: (5) Hypertension: (6) Dyslipidemia, goal LDL below 70: (7) Carotid artery disease: Plan Markedly complex 73-year-old female admitted with acute on chronic abdominal pain, anorexia, weakness. Imaging revealing mild diverticulitis. Patient positive for SARS Cov 2 on admission. Cardiology consultation requested due to preceding syncopal episodes. Patient with known basal septal hypertrophic cardiomyopathy without LVOT gradient/obstruction. History most suggestive of volume depletion and/or vasovagal episode. Patient did receive IV fluid resuscitation as well as potassium supplementation. High-sensitivity troponin negative. Continuous telemetry monitoring benign. Resting echocardiography sum marized below. Continue beta-donovan and aspirin. Recommend resumption of statin therapy. Recommend outpatient Vascular follow-up. Please contact with any further questions or concerns. Supervising Physician Co-Signing Physician Notes Please see full assessment and plan by advanced provider as above. Care and management personally discussed and endorsed. Complex 73-year-old female presenting with transient syncopal event as described. Inciting cause included abdominal pain anorexia and nausea. Underlying cardiac issues include known hypertrophic cardiomyopathy without obstruction. Patient has issues of carotid vascular disease as well with known left carotid occlusion. Current presentation appears to be noncardiac in etiology. Underlying pathologies would make patient more likely to suffer a vasovagal or hypotensive syncopal event in the setting of acute abdominal pain and diverticulitis. Would recommend maintaining telemetry while in hospital. Continue prehospital medications as above History of Present Illness Reason for Consultation: Syncope Requesting Physician: Dr. Darci Milton MD Attending Physician: Dr. Darci Milton MD History of Present Illness Complex 73-year-old female presented to [facility] on April 30, 2024 with complaints of acute on chronic abdominal pain and weakness. Patient describes worsening abdominal pain that has been present since abdominal surgery 2 years ago, typically aided by utilization of a heating pad. Workup revealed acute sigmoid diverticulitis. Patient SARS-CoV-2 positive. Laboratory work with mild hypokalemia. Cardiology consultation requested by Hospitalist Dr. Milton due to patient experiencing two brief syncopal episodes when trying to urinate at home prior to arrival. Laboratory work suggestive of mild intravascular volume depletion. Orthostatic reportedly negative. Information difficult to discern from patient who is considerably distraught, requesting something for the abdominal pain, wishing to go home. No chest pain. No palpitations. Stable shortness of breath with ADL's Problem list: Cardiac MRI with findings consistent with hypertrophic cardiomyopathy involving the base of the anterior septum, without significant LV outflow tract gradient. 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 Biologic father history unknown Social History: Chronic tobacco user. No significant alcohol. No illegal drug use. . 2 children. Retired nursing secretary. Allergies Allergy/AdvReac Type Severity Reaction Status Date / Time amoxicillin [From Augmentin] AdvReac Intermediate ABD Verified 02/22/24 16:30 PAIN/VOMITING azithromycin [From Zithromax] AdvReac Intermediate Diarrhea Verified 02/22/24 16:30 clavulanic acid AdvReac Intermediate ABD Verified 02/22/24 16:30 [From Augmentin] PAIN/VOMITING doxycycline AdvReac Intermediate Diarrhea Verified 02/22/24 16:30 Macrolide Antibiotics AdvReac Intermediate Diarrhea Verified 02/22/24 16:30 salicylates AdvReac Intermediate INTOLERANCE Verified 02/22/24 16:30 Tetracyclines AdvReac Intermediate Diarrhea Verified 02/22/24 16:30 Home Medications Medication Instructions Recorded Confirmed Type albuterol sulfate 90 mcg/actuation 2 puff inhalation Q6H PRN 08/23/22 04/30/24 History aerosol inhaler Shortness Of Breath Or Wheezing alprazolam 0.25 mg tablet 0.25 mg PO TID PRN anxiety 05/02/23 04/30/24 History paroxetine HCl 12.5 mg 12.5 mg PO QAM 05/02/23 04/30/24 History tablet,extended release 24 hr trazodone 100 mg tablet 50 mg PO HS 05/02/23 04/30/24 History amlodipine 5 mg tablet 5 mg PO QAM 07/07/23 04/30/24 History aspirin 81 mg chewable tablet 81 mg PO QAM 09/21/23 04/30/24 History carvedilol 3.125 mg tablet 3.125 mg PO BID 09/21/23 04/30/24 History docusate sodium 100 mg capsule 100 mg PO BID PRN Constipation #30 02/25/24 04/30/24 Rx caps fluticasone propionate 50 2 spray NA DAILY PRN Nasal 02/25/24 04/30/24 Rx mcg/actuation nasal congestion #16 grams spray,suspension Patient History Medical History Acute dehydration Weakness AAA (abdominal aortic aneurysm) Surgical History S/P tubal ligation Family History Other Diabetes Social History Smoking Status: Current every day smoker Tobacco Type: Cigarettes packs per day: 0.5; Cigarettes Per Day: 5; Second Hand Exposure: Yes; Do You Dip or Chew Tobacco: No; Hx Alcohol Use: No Hx Substance Use: No Preferred Language: Cymraes Communication Ability: Effective Electroplating Laborer Required: No Beliefs That Will Affect Care: None Current Living Situation: Spouse Current Living Situation Comment: Fernando Feels Safe at Home: Yes Assistive Devices: Denture - Lower Review of Systems Review of Systems: A complete and accurate review of systems was unable to be obtained. Physical Exam Physical Exam: General: Thin, anxious, somewhat cachectic appearing white female. HENT: Normocephalic. Atraumatic. Eyes: PER. Conjunctiva pink, sclera clear. Neck: Bilateral carotid bruits. Flat neck veins. No HJR. Heart: Regular at 70 bpm. Grade II/ systolic ejection murmur. No diastolic murmur. Lungs: Diminished. Decreased. Diffuse expiratory wheezing posteriorly. Abdomen: +BS. + Right sided tenderness. No organomegaly. Extremities: No distal peripheral edema. Limited neurological examination is without focal deficits. Pulses: Posterior tibial=1/4. Results & Data Vital Signs (Past 12 Hours) Vital Signs Temp Pulse Pulse Resp BP Pulse Ox O2 Del Method 05/01/24 09:04 Room Air 05/01/24 07:46 70 05/01/24 07:42 36.5 C 65 18 153/69 H 97 Room Air 05/01/24 03:50 36.6 C 77 20 171/72 H 96 Room Air 04/30/24 23:42 66 Laboratory Results Cardiac Enzymes 05/01/24 Range/Units 06:13 AST 15 (13-39) U/L CBC 05/01/24 Range/Units 06:13 WBC 5.38 (4.8-10.8) K/ul RBC 3.54 L (4.20-5.40) M/uL Hgb 11.2 L (12.0-16.0) g/dl Hct 33.1 L (37.0-47.0) % Plt Count 120 L (130-400) K/uL Neut # (Auto) 3.99 (1.40-6.50) K/uL Lymph # (Auto) 0.79 L (1.20-3.40) K/uL [place] # (Auto) 0.48 (0.11-0.59) K/uL Eos # (Auto) 0.07 (0.00-0.50) K/uL Baso # (Auto) 0.03 (0.00-0.20) K/uL Comprehensive Metabolic Panel 05/01/24 Range/Units 06:13 Sodium 139 (136-145) mmol/L Potassium 3.7 (3.5-5.1) mmol/L Chloride 104 (98-107) mmol/L Carbon Dioxide 31 (21-32) mmol/L BUN 17 (6-23) mg/dl Creatinine 0.83 D (0.6-1.2) mg/dl Glucose 103 H (70-99(Fasting)) mg/dl Calcium 8.6 (8.6-10.3) mg/dl AST 15 (13-39) U/L ALT 11 (7-52) U/L Alkaline Phosphatase 42 (34-104) U/L Total Protein 6.0 (6.0-8.3) gm/dl Albumin 3.5 (3.4-5.0) gm/dl Intake and Output 04/30/24 05/01/24 05/01/24 22:59 06:59 14:59 Intake Total 355 / 1833.75 200 / 1833.75 1000 / 1000 Balance 355 / 1833.75 200 / 1833.75 1000 / 1000 Intake: IV 355 / 1733.75 100 / 1733.75 1000 / 1000 Ciprofloxacin / D5w 400 mg In 200 / 200 200 ml @ 100 mls/hr IV Q12H KEELY Rx#:[id number] Nss + 20Meq KCl 20 meq In 1,000 1000 / 1000 ml @ 60 mls/hr IV .[id number] KEELY Rx#:[id number] Potassium Chloride / Wtr 10 meq 55 / 100 In 100 ml @ 100 mls/hr IV ONE ONE Rx#:[id number] metroNIDAZOLE 500 mg In 100 ml 100 / 200 100 / 200 @ 100 mls/hr IV Q8H KEELY Rx#: [id number] Oral 100 / 100 Other: Other Intake Source sips # Unmeasured Voids 2 Weight 45.8 kg Weight Measurement Method Built in [facility] Diagnostic Findings EKG revealed normal sinus rhythm at 73 bpm with possible left atrial enlargement Continuous digester operator revealed sinus rhythm throughout with heart rates in the 60s and 70s, rare premature atrial complex overnight only. No significant ventricular ectopy or tachycardia. No bradycardia or pauses. Resting echocardiography performed on April 30, 2024 revealed a normal size left ventricle with moderate concentric LVH. LV wall motion was normal. LVEF 65 to 70%. Grade 1 diastolic dysfunction observed along with moderate aortic valve sclerosis, without significant stenosis. Trace mitral regurgitation noted. Doppler findings not suggestive of pulmonary hypertension. Chest x-ray without acute cardiopulmonary findings Carotid duplex interpreted by radiologist as revealing extensive atherosclerosis with suspected occlusion of the left internal carotid artery and severe stenosis of the distal left common carotid artery, 50 to 69% stenosis of the distal right common carotid artery and right carotid bulb Imaging with unchanged descending thoracic and abdominal aortic aneurysms
[2024-05-01] MEDS ORDERED: MoRPHine SULFATE 2 MG/ML CARP IV PRN (19:23)
[2024-05-01] MEDS: bisacodyL 5 MG TABEC PO ONE (21:06)
[2024-05-02 06:38] LABS: Hematocrit (blood only) 35.7 % (37.0-47.0); Hemoglobin 12.1 g/dl (12.0-16.0); Mean Corpuscular Hemoglobin 31.7 pg (25.0-34.0); Mean Corpuscular Hgb Conc 33.9 g/dL (32.0-36.0); Mean Corpuscular Volume 93.5 fL (80.0-100.0); Mean Platelet Volume 10.4 fL (9.4-12.4); Platelet Count 142 K/uL (130-400); RDW Coefficient of Variation 11.7 % (11.5-14.5); RDW Standard Deviation 40.1 fL (36.4-46.3); Red Blood Count 3.82 M/uL (4.20-5.40); White Blood Count 4.19 K/ul (4.8-10.8)
[2024-05-02 07:00] LABS: BUN Creatinine Ratio 14.4 (10-20); Calcium 8.7 mg/dl (8.6-10.3); Creatinine Clr Calc Pharmacy 38.6 ml/min; Magnesium 1.9 mg/dl (1.7-2.4); Phosphorus 2.8 mg/dl (2.5-4.9); Potassium 3.4 mmol/L (3.5-5.1)
[2024-05-02] MEDS: POTASSIUM CHLORIDE CRTAB 20 MEQ TABCR PO STA (08:09)
[2024-05-02] MEDS: ROSUVASTATIN CALCIUM 20 MG TAB PO SCH (08:12)
[2024-05-02] MEDS: CALCIUM CARBONATE 500 MG CHEWABLE TAB PO PRN (11:42)
[2024-05-02] MEDS: hydrOXYzine HCl 25 MG TAB PO PRN (14:52)
--- NOTE | 2024-05-02 15:52 | Hospitalist Progress Note ---
Date of Service May 02, 2024 Assessment & Plan (1) Syncope and collapse: (2) Occlusion of left internal carotid artery: (3) Hypertrophic cardiomyopathy: (4) Sigmoid diverticulitis: (5) COVID-19: Plan 73 yo F w/ PMH of HLD, COPD, HTN, anterior cerebral artery aneurysm, abdominal aortic aneurysm, descending thoracic aortic aneurysm, adenocarcinoma of colon s/p right hemicolectomy in 2022, basal septal hypertrophic cardiomyopathy, chronic left internal carotid artery occlusion, palpitations, GERD, protein- calorie malnutrition, tobacco use disorder and anxiety/depression presented to the ED on 04/30/2024 secondary to syncopal episodes. She reports having chronic abdominal pain for about 2 years since her surgery. She is being managed for the following: Recent Syncopal Events ISO Chronic Left ICA Occlusion, Hypertrophic Cardiomyopathy Patient presented with complaint of "blacking out" x 2 the night prior to presentation, first episode when she was going to get on the commode and she missed the commode and fell on the floor and blacked out after that/she did not hit her head. She got back up and fell back down again when she tried to sit on the commode. She denied hitting her head during that time as well. Admitting CT head with no acute finding or intracranial hemorrhage.Orthostatic vitals were negative.Carotid Doppler redemonstrated her extensive atherosclerosis with evidence of chronic left ICA occlusion [has been evaluated by [facility] neurosurgery last October with cervical + cerebral angiogram, Dr. Ari Toney at [facility].] Prior attending reached out to Dr. Toney via [place] text: Reports he tried to get the patient to come back into his office for further treatment however she has not seen him since last October. We were able to discuss her carotid doppler findings as per above, mentions he would not do anything specifically for this finding at least for the time being. If she were to develop a bad headache or altered mental status, he recommends obtaining a CT to rule out subarachnoid hemorrhage in the setting of her known anterior communicating artery aneurysm. Cardio also evaled her given septal HOCM and recurrent syncopal events, per eval, pt's presentation is noncardiac in nature. Recs were c/w home cardiac meds and OP vascular Sx eval. ECHO this admission w/ EF of 65-70%, LV wall motion is normal. Will consult neuro, will get CT head as pt appears to have zoned out twice today ? presyncope. c/w tele monitoring. PT/OT Acute Sigmoid Diverticulitis: CTAP on admission concerning for mild acute sigmoid diverticulitis. Patient was initially started on IV ciprofloxacin/Flagyl. Ciprofloxacin should be used with caution in patients with aortic dilation or known aortic aneurysms, therefore patient was transitioned to IV ertapenem 05/01. Ciprofloxacin/Flagyl discontinued. Probiotic on board. Continue PRN abdominal pain control. continue atb for total of 10 days. COVID-19 Positive: Suspect this is not reinfection as the patient does not have any respiratory symptoms although she is endorsing some generalized weakness. Patient recently was diagnosed with COVID-19 in February. Chest x-ray on admission was unremarkable. Will continue with isolation precautions for now. Continue to closely monitor respiratory status. Incidental CTAP Finding: CTAP as per above incidentally noted a 2.7 cm hyperdense focus within the right adnexa which could represent right ovary although was denser than expected. Pelvic ultrasound was obtained which did not show any evidence of a definite uterine abnormality. This test unfortunately did not allow for visualization of the ovaries. This finding can further be worked up as an outpatient unless her abdominal pain does not improve on the IV antibiotic above ISO her acute sigmoid diverticulitis; would then pursue further imaging/testing while inpatient regarding this finding. if pain not improving, gynecology consult in AM. H/O Colon Cancer S/P Surgery: Patient with prior history of adenocarcinoma of colon. Underwent laparoscopic right hemicolectomy in October 2022. Currently under observation with Dr. Moe. Other Chronic Medical Conditions: * Tobacco Use Disorder - Still smokes 0.5ppd, nicotine patch ordered. Encourage smoking cessation. * COPD - No evidence of acute exacerbation, continue home meds. Severe Protein- Calore Malnutrition - Nutrition consulted. * Known 3.8cm descending thoracic aortic aneurysm and 3.0cm abdominal aortic aneurysm - follows with Dr. Garcia at [facility]. * Known 6mm anterior communicating artery aneurysm and 2.5mm dorsal ophthalmic artery aneurysm - follows with [facility]. DVT Prophylaxis: SQ Heparin on hold until repeat ct head is back and neg for bleed. Code Status: FULL CODE PCP: Adriel Whitaker MD Disposition: Admitted in Med/Telemetry , will await neuro eval, ? gynecology eval pending abd pain eval in AM, likelyl to remain next few days. Admission and Anticipated Discharge Date Admission Date: April 30, 2024 Subjective Patient was seen and examined at bedside. Patient was lying in bed, on room air, NAD, resting comfortably. Patient reports some mild headache in the morning, received Tylenol. Patient complains of mid upper belly pain, ordered Tums as needed, has no further belly pain later in the day per RN. Patient has been eating okay, moved bowel yesterday. Later in the morning, patient was difficult to arouse per RN during taking vitals, I examined the patient again at bedside who was oriented and responding appropriately to my questions, no focal weakness noted, fingerstick glucose and pulse ox were WNL. Again later in the day per report from RN, patient appears to have zoned out during conversation with her granddaughter, we will go with CT scan of the head to rule out bleed in the setting of her history of aneurysm. Will get neurology evaluation. Physical Exam Physical Exam: General: Frail elderly F, NAD, sitting up in bed, conversing appropriately. A+Ox3 HEENT: Normocephalic, atraumatic. Conjunctivae normal, anicteric sclerae. External ear and nose normal, oropharynx normal. Respiratory: Normal respiratory effort, lungs clear to auscultation, no wheeze/rales/rhonchi. No accessory muscle use. Cardiovascular: Regular rate, rhythm, normal peripheral pulses, no BLE edema. Vessels: No JVD. Abdomen/GI: Normal bowel sounds, soft, non distended, tender to palpation x epigastric region Extremities/Musculoskeletal: No cyanosis or clubbing, extremities motor strength intact, moves all extremities. Neurologic: No overt focal deficits, CN's II-XI not formally tested but appear grossly intact bilaterally. Results & Data Results & Data Vital Signs (Past 12 Hours) Vital Signs Temp Pulse Pulse Resp BP BP Pulse Ox 05/02/24 11:44 118/69 05/02/24 11:16 126/75 05/02/24 11:06 146/70 H 05/02/24 10:59 164/71 H 05/02/24 10:59 36.7 C 68 108/66 05/02/24 07:40 05/02/24 07:35 36.9 C 73 16 155/80 H 95 05/02/24 07:23 88 O2 Del Method 05/02/24 11:44 05/02/24 11:16 05/02/24 11:06 05/02/24 10:59 05/02/24 10:59 05/02/24 07:40 Room Air 05/02/24 07:35 Room Air 05/02/24 07:23
--- NOTE | 2024-05-02 16:02 | CT Scan Report ---
EXAM: CT Head Without Intravenous Contrast INDICATION: Mild headache. TECHNIQUE: Axial computed tomography images of the head/brain without intravenous contrast. Sagittal and/or coronal reformats are provided. Sagittal and coronal reformatted images were created and reviewed. This CT exam was performed using one or more of the following dose reduction techniques: automated exposure control, adjustment of the mA and/or kV according to patient size, and/or use of iterative reconstruction technique. COMPARISON: 04/30/2024 FINDINGS: Limitations: None. Brain and extra-axial spaces: There is age appropriate cortical atrophy and chronic ischemic periventricular white matter hypodensity. No acute infarct, hemorrhage or mass noted. Bones/joints: No acute changes. Soft tissues: No significant abnormality noted. Vasculature: There is atherosclerotic calcification of the intracranial carotid and left vertebral arteries. Sinuses: No layering fluid in the visualized portions of the paranasal sinuses. Mastoid air cells: No mastoid effusion. Orbits: No significant abnormality noted. IMPRESSION: Cerebral atrophy. No acute changes. ACT 112: Negative or not required by law. Electronically signed by Jennifer Campuzano 05-02-2024 4:02 PM
[2024-05-02] MEDS: hydrALAZINE HCL 20 MG/ML VIAL IV PRN (16:27)
--- NOTE | 2024-05-02 16:57 | Neurology Consultation ---
Date of Consultation May 02, 2024 Assessment & Plan (1) Episode of unresponsiveness: 73F with a PMH of tobacco abuse, left carotid occlusion, HTN, HLD, COPD who presents with recurrent syncopal events. Currently her exam is normal. There are several potential causes of unresponsive events in the setting of normal vitals. Seizure is one, but idiopathic recurrent stupor or amyloid spells are others Plan -- recommend MRI brain with and without contrast -- recommend CTA head/neck -- routine EEG when able Telehealth Consultation Telehealth Information Telehealth Information: I performed this visit using a real-time telehealth connection between my location and the patients location ([facility]). After connecting through interactive tele-video, patient was identified by name and date of and/or wristband check.Patient (or authorized healthcare public health representative) was informed that this was a telemedicine visit and it was being conducted confidentially over secure lines. My office door was closed and no one else was present in the room with me.Patient (or authorized healthcare public health representative) provided consent to proceed with the visit, expressed an understanding of privacy and security of the telemedicine visit, and gave permission to have a hospital public health representative in the room in order to assist with the visit and to conduct portions of the visit, as needed. I informed the patient (or authorized healthcare public health representative) that I reviewed their record and presented the opportunity for them to ask any questions regarding the visit today. The patient agreed to participate. History of Present Illness Reason for Consultation: recurrent presyncope Attending Physician: Priscilla Longo MD History of Present Illness Faith Chavis is a 73F with a PMH of chronic left ICA occlusion, HLD, hypertrophic cardiomyopathy, and COVID 19 infection who presents with presyncope x2. She reports that she got up to use the bathroom and when she went to sit on the commode she fell backwards onto the ground. She then stood up and went into the alexander and lost consciousness. She does report feeling dizzy frequently when she stands up. She also endorses a 44 pound weight loss over the last couple of years. While in the hospital she had 2 events when she became acutely unresponsive. During these her blood pressure and pulse were normal. The patient denies headache, chest pain, but does endorse some SOB. She denies any weakness and is able to ambulate normally. Allergies Allergy/AdvReac Type Severity Reaction Status Date / Time amoxicillin [From Augmentin] AdvReac Intermediate ABD Verified 02/22/24 16:30 PAIN/VOMITING azithromycin [From Zithromax] AdvReac Intermediate Diarrhea Verified 02/22/24 16:30 clavulanic acid AdvReac Intermediate ABD Verified 02/22/24 16:30 [From Augmentin] PAIN/VOMITING doxycycline AdvReac Intermediate Diarrhea Verified 02/22/24 16:30 Macrolide Antibiotics AdvReac Intermediate Diarrhea Verified 02/22/24 16:30 salicylates AdvReac Intermediate INTOLERANCE Verified 02/22/24 16:30 Tetracyclines AdvReac Intermediate Diarrhea Verified 02/22/24 16:30 Home Medications Medication Instructions Recorded Confirmed Type albuterol sulfate 90 mcg/actuation 2 puff inhalation Q6H PRN 08/23/22 04/30/24 History aerosol inhaler Shortness Of Breath Or Wheezing alprazolam 0.25 mg tablet 0.25 mg PO TID PRN anxiety 05/02/23 04/30/24 History paroxetine HCl 12.5 mg 12.5 mg PO QAM 05/02/23 04/30/24 History tablet,extended release 24 hr trazodone 100 mg tablet 50 mg PO HS 05/02/23 04/30/24 History amlodipine 5 mg tablet 5 mg PO QAM 07/07/23 04/30/24 History aspirin 81 mg chewable tablet 81 mg PO QAM 09/21/23 04/30/24 History carvedilol 3.125 mg tablet 3.125 mg PO BID 09/21/23 04/30/24 History docusate sodium 100 mg capsule 100 mg PO BID PRN Constipation #30 02/25/24 04/30/24 Rx caps fluticasone propionate 50 2 spray NA DAILY PRN Nasal 02/25/24 04/30/24 Rx mcg/actuation nasal congestion #16 grams spray,suspension Patient History Medical History Acute dehydration Weakness AAA (abdominal aortic aneurysm) Surgical History S/P tubal ligation Family History Other Diabetes Social History Smoking Status: Current every day smoker Tobacco Type: Cigarettes packs per day: 0.5; Cigarettes Per Day: 5; Second Hand Exposure: Yes; Do You Dip or Chew Tobacco: No; Hx Alcohol Use: No Hx Substance Use: No Preferred Language: Tongan Communication Ability: Effective [employer] Required: No Beliefs That Will Affect Care: None Current Living Situation: Spouse Current Living Situation Comment: Fernando Feels Safe at Home: Yes Assistive Devices: None Physical Exam NEUROLOGIC EXAMINATION: Mental Status:alert, oriented to time, place, person, normal recent memory, normal remote memory, normal attention span, normal concentration, normal language, and normal fund of knowledge Cranial Nerves: CN 2 - no visual defect on confrontation and pupils round, equal, reactive to light CN 3, 4, 6 - extra-ocular movements intact and no nystagmus CN 5 - facial sensation intact CN 7 - no facial asymmetry CN 8 - intact hearing CN 9, 10 - palate symmetric, normal gag CN 11 - good shoulder shrug CN 12 - tongue midline MOTOR: Strength was at least antigravity throughout, Pronator drift was absent, and There were no abnormal movements SENSATION: intact GAIT: deferred COORDINATION: no ataxia with finger to nose testing and heel to guteirrez testing REFLEXES: cannot assess over telemedicine Results & Data Vital Signs (Past 12 Hours) Vital Signs Temp Pulse Pulse Resp BP BP BP 05/02/24 16:43 05/02/24 16:26 68 182/79 H 05/02/24 15:52 73 05/02/24 15:48 182/98 H 05/02/24 15:48 36.6 C 66 16 198/80 H 05/02/24 11:44 118/69 05/02/24 11:16 126/75 05/02/24 11:06 146/70 H 05/02/24 10:59 164/71 H 05/02/24 10:59 36.7 C 68 108/66 05/02/24 07:40 05/02/24 07:35 36.9 C 73 16 155/80 H 05/02/24 07:23 88 Pulse Ox O2 Del Method O2 Del Method 05/02/24 16:43 Room Air 05/02/24 16:26 05/02/24 15:52 05/02/24 15:48 05/02/24 15:48 99 Room Air 05/02/24 11:44 05/02/24 11:16 05/02/24 11:06 05/02/24 10:59 05/02/24 10:59 05/02/24 07:40 Room Air 05/02/24 07:35 95 Room Air 05/02/24 07:23 Laboratory Results Abnormal Lab Results 05/02/24 05/02/24 05/02/24 05:58 05:59 11:19 WBC 4.19 L RBC 3.82 L Hgb 12.1 Hct 35.7 L MCV 93.5 MCH 31.7 MCHC 33.9 RDW Std Deviation 40.1 RDW Coeff of Yamile 11.7 Plt Count 142 MPV 10.4 Sodium 142 Potassium 3.4 L Chloride 106 Carbon Dioxide 31 Anion Gap 5 BUN 14 Creatinine 0.97 Est Cr Clr Drug Dosing 38.6 eGFR 62.47 BUN/Creatinine Ratio 14.4 Glucose 95 POC Glucose 159 H Calcium 8.7 Phosphorus 2.8 Magnesium 1.[address] 05/02/24 15:29 EXAM: CT Head Without Intravenous Contrast INDICATION: Mild headache. TECHNIQUE: Axial computed tomography images of the head/brain without intravenous contrast. Sagittal and/or coronal reformats are provided. Sagittal and coronal reformatted images were created and reviewed. This CT exam was performed using one or more of the following dose reduction techniques: automated exposure control, adjustment of the mA and/or kV according to patient size, and/or use of iterative reconstruction technique. COMPARISON: 04/30/2024 FINDINGS: Limitations: None. Brain and extra-axial spaces: There is age appropriate cortical atrophy and chronic ischemic periventricular white matter hypodensity. No acute infarct, hemorrhage or mass noted. Bones/joints: No acute changes. Soft tissues: No significant abnormality noted. Vasculature: There is atherosclerotic calcification of the intracranial carotid and left vertebral arteries. Sinuses: No layering fluid in the visualized portions of the paranasal sinuses. Mastoid air cells: No mastoid effusion. Orbits: No significant abnormality noted. IMPRESSION: Cerebral atrophy. No acute changes. ACT 112: Negative or not required by law. Electronically signed by Jennifer Campuzano 05-02-2024 4:02 PM
[2024-05-02] MEDS: OPTIRAY 320 125ml IV ONE (18:51)
--- NOTE | 2024-05-02 19:13 | CT Scan Report ---
EXAM: CT Angiography Head With Intravenous Contrast INDICATION: Fall. TECHNIQUE: Axial computed tomographic angiography images of the head with intravenous contrast. Sagittal and coronal reformatted images were created and reviewed. This CT exam was performed using one or more of the following dose reduction techniques: automated exposure control, adjustment of the mA and/or kV according to patient size, and/or use of iterative reconstruction technique. MIP reconstructed images were created and reviewed. CONTRAST: 118ml of Optiray 320 was administered intravenously. COMPARISON: No relevant prior studies available. FINDINGS: Right internal carotid artery: No acute change noted. Intracranial segment is patent with no significant stenosis. No aneurysm. Right anterior cerebral artery: There is a 0.6 x 0.6 x 0.7 cm aneurysm of the anterior communicating artery. No rupture. No occlusion or significant stenosis. Right middle cerebral artery: No abnormality noted. No occlusion or significant stenosis. No aneurysm. Right posterior cerebral artery: No abnormality noted. No occlusion or significant stenosis. No aneurysm. Right vertebral artery: No significant abnormality noted. Left internal carotid artery: Left internal carotid artery is thrombosed. No aneurysm. Left anterior cerebral artery: See above. Left middle cerebral artery: Small caliber left MCA reconstituted by the communicators. Small left middle cerebral artery reconstituted proximally. No occlusion or aneurysm. Left posterior cerebral artery: No abnormality noted. No occlusion or significant stenosis. No aneurysm. Left vertebral artery: There is atherosclerotic calcification with stenosis of the left intracranial vertebral artery at the foramen magnum and then at the mid point without complete occlusion. Basilar artery: No abnormality noted. No occlusion or significant stenosis. No aneurysm. Other vasculature: Patent dural venous sinuses. IMPRESSION: 1. Left ICA occlusion. Chronicity uncertain. 2. Small reconstituted left MCA without occlusion. 3. Approximate 6 mm aneurysm of the anterior communicating artery without hemorrhage. 4. Slow inflow left intracranial vertebral artery without occlusion. ACT 112: Negative or not required by law. Electronically signed by Jennifer Campuzano 05-02-2024 7:12 PM
--- NOTE | 2024-05-02 19:20 | CT Scan Report ---
EXAM: CT Angiography Neck With Intravenous Contrast INDICATION: Fall. TECHNIQUE: Routine carotid CT angiography protocol was performed with intravenous contrast. NASCET criteria using the distal ICAs for comparison were used for evaluation of stenoses. Sagittal and coronal reformatted images were created and reviewed. This CT exam was performed using one or more of the following dose reduction techniques: automated exposure control, adjustment of the mA and/or kV according to patient size, and/or use of iterative reconstruction technique. MIP reconstructed images were created and reviewed. CONTRAST: 118 ml of Optiray 320 was administered intravenously. COMPARISON: Carotid ultrasound 04/30/2024 FINDINGS: VASCULATURE: Right common carotid artery: No abnormality noted. No occlusion or significant stenosis. No dissection. Right internal carotid artery: No abnormality noted. Extracranial segment is patent with no occlusion or significant stenosis. No dissection. Right external carotid artery: No abnormality noted. No occlusion. Right vertebral artery: There is mild calcific plaque of the proximal right vertebral artery which is dominant. No occlusion or significant stenosis. No dissection. Left common carotid artery: There is diffuse irregular mixed plaque in the left common carotid artery with stenosis of up to 60% proximally. No occlusion or dissection. Left internal carotid artery: There is occlusive dense atherosclerotic plaque in the left carotid bulb. Left external carotid artery: No abnormality noted. No occlusion. Left vertebral artery: There is multifocal calcific plaque in the small left vertebral artery. No aneurysm identified. No dissection. No occlusion or significant stenosis. Aorta: There is markedly irregular mixed plaque in the aortic arch and great vessels. NECK: Bones/joints: No acute or atypical chronic changes. Soft tissues: No abnormality noted. Lung apices: Clear. Pleural space: Centrilobular emphysematous changes present. No apical pneumothorax. CAROTID STENOSIS REFERENCE USING NASCET CRITERIA: % ICA stenosis = (1 - narrowest ICA diameter/diameter of distal cervical ICA) x 100. Mild - <50% stenosis. Moderate - 50-69% stenosis. Severe - 70-94% stenosis. Near occlusion - 95-99% stenosis. Occluded - 100% stenosis. IMPRESSION: 1. The left internal carotid artery is occluded. 2. There is multifocal bilateral common carotid plaque with up to 60% focal stenosis left proximal common carotid. 3. Multifocal stenoses of the left vertebral artery without complete occlusion. ACT 112: Negative or not required by law. Electronically signed by Jennifer Campuzano 05-02-2024 7:20 PM
[2024-05-03 06:50] LABS: Hematocrit (blood only) 39.4 % (37.0-47.0); Hemoglobin 13.3 g/dl (12.0-16.0); Mean Corpuscular Hemoglobin 31.3 pg (25.0-34.0); Mean Corpuscular Hgb Conc 33.8 g/dL (32.0-36.0); Mean Corpuscular Volume 92.7 fL (80.0-100.0); Mean Platelet Volume 10.5 fL (9.4-12.4); Platelet Count 146 K/uL (130-400); RDW Coefficient of Variation 11.9 % (11.5-14.5); RDW Standard Deviation 40.5 fL (36.4-46.3); Red Blood Count 4.25 M/uL (4.20-5.40); White Blood Count 4.26 K/ul (4.8-10.8)
[2024-05-03 07:16] LABS: BUN Creatinine Ratio 17.2 (10-20); Calcium 9.1 mg/dl (8.6-10.3); Creatinine Clr Calc Pharmacy 43.3 ml/min; Phosphorus 2.7 mg/dl (2.5-4.9); Potassium 3.9 mmol/L (3.5-5.1)
[2024-05-03] MEDS: bisacodyL 5 MG TABEC PO PRN (08:09)
[2024-05-03] MEDS: LORazepam 0.5 MG TAB PO PRN (08:42)
[2024-05-03] MEDS: GADOBUTROL 65ML VIAL IV ONE (10:03)
--- NOTE | 2024-05-03 10:33 | Magnetic Resonance Report ---
MR brain wo/w con HISTORY: 73 years-old Female presyncope and syncopal episodes COMPARISON: CTA head and neck 05/02/2024 TECHNIQUE: Multiplanar multisequence MR of the brain was obtained with and without IV contrast FINDINGS: There is no restricted diffusion to suggest acute or subacute infarct. The midline structures appear unremarkable. Degenerative changes of the cervical spine. Partially empty sella. No acute intracrania l hemorrhage, midline shift, abnormal extra-axial collection, hydrocephalus or intra-axial mass. The study is mildly motion degraded. Involutional changes with moderate T2/FLAIR hyperintense foci throughout the white matter. Occlusion of the left ICA redemonstrated. Diminutive left vertebral artery again noted. The cerebral venous sin uses appear patent. Unremarkable orbits and soft tissues. No abnormal enhancement. IMPRESSION: 1. No acute intracranial abnormality. No acute or subacute infarct. 2. Involutional changes with chronic microvascular ischemic disease. 3. Occlusion of the left ICA redemonstrated, likely chronic. 4. No abnormal enhancement. ACT 112: Negative or not required by law. The above report was generated using voice recognition software. It may contain grammatical, syntax o r spelling errors. Electronically signed by: Olu Villagran M.D. 05/03/2024 10:32 AM
[2024-05-03] MEDS: oxyCODONE HCL IR 5 MG TAB (IMMEDIATE RELEASE) PO PRN ×2 (12:10→16:39)
--- NOTE | 2024-05-03 15:22 | Hospitalist Progress Note ---
Date of Service May 03, 2024 Assessment & Plan (1) Syncope and collapse: (2) Occlusion of left internal carotid artery: (3) Hypertrophic cardiomyopathy: (4) Sigmoid diverticulitis: (5) COVID-19: Plan 73 yo F w/ PMH of HLD, COPD, HTN, anterior cerebral artery aneurysm, abdominal aortic aneurysm, descending thoracic aortic aneurysm, adenocarcinoma of colon s/p right hemicolectomy in 2022, basal septal hypertrophic cardiomyopathy, chronic left internal carotid artery occlusion, palpitations, GERD, protein- calorie malnutrition, tobacco use disorder and anxiety/depression presented to the ED on 04/30/2024 secondary to syncopal episodes. She reports having chronic abdominal pain for about 2 years since her surgery. She is being managed for the following: Recent Syncopal Events ISO Chronic Left ICA Occlusion, Hypertrophic Cardiomyopathy Patient presented with complaint of "blacking out" x 2 the night prior to presentation, first episode when she was going to get on the commode and she missed the commode and fell on the floor and blacked out after that/she did not hit her head. She got back up and fell back down again when she tried to sit on the commode. She denied hitting her head during that time as well. Admitting CT head with no acute finding or intracranial hemorrhage.Orthostatic vitals were negative.Carotid Doppler redemonstrated her extensive atherosclerosis with evidence of chronic left ICA occlusion [has been evaluated by [facility] neurosurgery last October with cervical + cerebral angiogram, Dr. Ari Toney at [facility].] Prior attending reached out to Dr. Toney via [employer] text: Reports he tried to get the patient to come back into his office for further treatment however she has not seen him since last October. We were able to discuss her carotid doppler findings as per above, mentions he would not do anything specifically for this finding at least for the time being. If she were to develop a bad headache or altered mental status, he recommends obtaining a CT to rule out subarachnoid hemorrhage in the setting of her known anterior communicating artery aneurysm. Cardio also evaled her given septal HOCM and recurrent syncopal events, per eval, pt's presentation is noncardiac in nature. Recs were c/w home cardiac meds and OP vascular Sx eval. ECHO this admission w/ EF of 65-70%, LV wall motion is normal. Neurology evaluated 05/03, CTA head and neck and MRI brain with no new acute finding. Chronic findings were noted. EEG pending, will reach out to neurology and once EEG results. No further presyncope today. Continue with telemetry monitoring. PT/OT. Acute Sigmoid Diverticulitis: CTAP on admission concerning for mild acute sigmoid diverticulitis. Patient was initially started on IV ciprofloxacin/Flagyl. Ciprofloxacin should be used with caution in patients with aortic dilation or known aortic aneurysms, therefore patient was transitioned to IV ertapenem 05/01. Ciprofloxacin/Flagyl Was discontinued. Probiotic on board. continue atb for total of 10 days. patient's lower abdominal pain has improved. Musculoskeletal versus gastritis plan: Patient reports upper belly pain/anterior lower rib cage pain, reports it as more of muscular pain than " GI pain" and hence she has been declining Tums. We discussed in detail to try scheduled Tums and Pepcid and follow-up on the pain control. Also will order diclofenac gel and as needed oxycodone for severe pain. COVID-19 Positive: Suspect this is not reinfection as the patient does not have any respiratory symptoms although she is endorsing some generalized weakness. Patient recently was diagnosed with COVID-19 in February. Chest x-ray on [facility] was unremarkable. Will continue with isolation precautions for now. Continue to closely monitor respiratory status. Incidental CTAP Finding: CTAP as per above incidentally noted a 2.7 cm hyperdense focus within the right adnexa which could represent right ovary although was denser than expected. Pelvic ultrasound was obtained which did not show any evidence of a definite uterine abnormality. This test unfortunately did not allow for visualization of the ovaries. This finding can further be worked up as an outpatient unless her abdominal pain does not improve on the IV antibiotic above ISO her acute sigmoid diverticulitis; would then pursue further imaging/testing while inpatient regarding this finding. Lower belly pain seems to have improved. f/u gynecology as OP. H/O Colon Cancer S/P Surgery: Patient with prior history of adenocarcinoma of colon. Underwent laparoscopic right hemicolectomy in October 2022. Currently under observation with Dr. Moe. Other Chronic Medical Conditions: * Tobacco Use Disorder - Still smokes 0.5ppd, nicotine patch ordered. Encourage smoking cessation. * COPD - No evidence of acute exacerbation, continue home meds. Severe Protein- Calore Malnutrition - Nutrition consulted. * Known 3.8cm descending thoracic aortic aneurysm and 3.0cm abdominal aortic aneurysm - follows with Dr. Garcia at [facility]. 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 Neurosurgery. DVT Prophylaxis: SQ Heparin Code Status: FULL CODE PCP: Adriel Whitaker MD Disposition: Admitted in Med/Telemetry , pending EEG read, pt/ot, cm to assist. will likely need iv antibiotic on dc. Patient's son Cheikh was given a phone call 05/03, updated on current status/went over each point as above, he voiced understanding and was agreeable to plan of care. Admission and Anticipated Discharge Date Admission Date: April 30, 2024 Subjective Patient was seen and examined at bedside. Patient was lying in bed, on room air, NAD, resting comfortably. No further presyncopal events today. Patient is eating okay and moving bowels okay. Her diverticulitis abdominal pain seems to have improved. Her lower rib cage/upper abdominal pain persists and patient refers to it as more of muscular pain than "GI pain". Will trial with scheduled Pepcid and scheduled Tums for possible acid peptic disease, will also utilize diclofenac gel. Continue with as needed oxycodone for severe pain. Physical Exam Physical Exam: General: Frail elderly F, NAD, sitting up in bed, conversing appropriately. A+Ox3 HEENT: Normocephalic, atraumatic. Conjunctivae normal, anicteric sclerae. External ear and nose normal, oropharynx normal. Respiratory: Normal respiratory effort, lungs clear to auscultation, no wheeze/rales/rhonchi. No accessory muscle use. Cardiovascular: Regular rate, rhythm, normal peripheral pulses, no BLE edema. Vessels: No JVD. Abdomen/GI: Normal bowel sounds, soft, non distended, tender to palpation x epigastric region/ant lower rib cage Extremities/Musculoskeletal: No cyanosis or clubbing, extremities motor strength intact, moves all extremities. Neurologic: No overt focal deficits, CN's II-XI not formally tested but appear grossly intact bilaterally. Results & Data Results & Data Vital Signs (Past 12 Hours) Vital Signs Temp Pulse Pulse Resp BP Pulse Ox O2 Del Method 05/03/24 12:17 36.4 C L 83 16 154/91 H 99 Room Air 05/03/24 07:34 36.8 C 78 20 143/84 H 97 Room Air 05/03/24 07:20 Room Air 05/03/24 07:14 98 H 05/03/24 03:28 37 C 80 20 160/97 H 96 Room Air
[2024-05-03] MEDS: CALCIUM CARBONATE 500 MG CHEWABLE TAB PO SCH (15:25)
[2024-05-03] MEDS ORDERED: SIMETHICONE 80 MG CHEW PO PRN (15:50)
[2024-05-03] MEDS: FAMOTIDINE 20 MG TAB PO SCH (16:39)
[2024-05-03] MEDS: DICLOFENAC SOD 1% GEL 100 GM TUBE EXT SCH (16:40)
[2024-05-04 08:29] VITALS: RESP 17
[2024-05-04 09:23] LABS: Hematocrit (blood only) 40.1 % (37.0-47.0); Hemoglobin 13.6 g/dl (12.0-16.0); Mean Corpuscular Hemoglobin 31.7 pg (25.0-34.0); Mean Corpuscular Hgb Conc 33.9 g/dL (32.0-36.0); Mean Corpuscular Volume 93.5 fL (80.0-100.0); Mean Platelet Volume 10.2 fL (9.4-12.4); Platelet Count 154 K/uL (130-400); RDW Coefficient of Variation 11.9 % (11.5-14.5); RDW Standard Deviation 40.7 fL (36.4-46.3); Red Blood Count 4.29 M/uL (4.20-5.40); White Blood Count 5.05 K/ul (4.8-10.8)
[2024-05-04 09:39] LABS: BUN Creatinine Ratio 22.2 (10-20); Calcium 8.9 mg/dl (8.6-10.3); Creatinine Clr Calc Pharmacy 34.8 ml/min; Magnesium 2.1 mg/dl (1.7-2.4); Potassium 3.3 mmol/L (3.5-5.1)
[2024-05-04] MEDS: POTASSIUM CHLORIDE CRTAB 20 MEQ TABCR PO STA (11:44)
[2024-05-04] MEDS: traMADol HCL 50 MG TABLET PO PRN (11:47)
[2024-05-04 12:06] VITALS: BP 174/91; PULSE 64; TEMP 97.9; O2SAT 97
--- NOTE | 2024-05-04 13:11 | Discharge Summary ---
Date of Service May 04, 2024 Admission HPI Per Admitting Provider This is 73 year old female with PMH HTN, dyslipidemia, anxiety, depression, GERD, COPD, AAA, presented to ER She reports, "blacking out," x 2 last night. The one episode she was going to get on the commode and she missed the commode and fell on the floor. She blacked out after that. She did not hit her head. She got back up and fell back down again when she tried to sit on the commode. She denies hitting her head that time. She reports having abdominal pain for 2 years since her surgery. She reports worsening of pain 1 month ago. She reports inability to move her bowels. She feels generally weak. She denies any fever, sweats, chest pain, sob, cough, sore throat, runny nose, vomiting or diarrhea, dysuria, increased urg/freq with urination. Her last BM was 2-3 days ago. Typically she moves her bowels every day until this past couple of days. She denies any recent blood in stool. She felt nauseated yesterday. Overall her appetite is decreased. Pt generally is a poor historian. She lives with her . She normally ambulates w/o assist device. She continues to smoke 0.5ppd. She denies any alcohol or recreational drugs. Admission Exam Per Admitting Provider General: Thin elderly woman, no acute distress Eyes: PERRL, conjunctivae normal, not pale, anicteric sclerae, EOM intact bilaterally ENMT: External ear and nose normal, oropharynx normal Respiratory: Normal respiratory effort, no respiratory distress, lungs clear to auscultation, no crackles and no wheezes Cardiovascular: RRR S1 S2 +murmur Gastrointestinal (Abdomen): Abdomen is not distended, soft, +lower abd tenderness, skin excoriations on abdomen Musculoskeletal: No pedal edema Neurologic: No focal weakness, sensation grossly intact Psychiatric: Alert and oriented x 3 Principal Diagnosis Recurrent syncopal events HO Chronic Left ICA Occlusion, Hypertrophic Cardiomyopathy Acute Sigmoid Diverticulitis Musculoskeletal versus gastritis pian Incidental CTAP Finding of Rt adnexal mass Discharge Exam General: Frail elderly F, NAD, sitting up in bed, conversing appropriately. A+Ox3 HEENT: Normocephalic, atraumatic. Conjunctivae normal, anicteric sclerae. External ear and nose normal, oropharynx normal. Respiratory: Normal respiratory effort, lungs clear to auscultation, no wheeze/rales/rhonchi. No accessory muscle use. Cardiovascular: Regular rate, rhythm, normal peripheral pulses, no BLE edema. Vessels: No JVD. Abdomen/GI: Normal bowel sounds, soft, non distended, tender to palpation x epigastric region/ant lower rib cage Extremities/Musculoskeletal: No cyanosis or clubbing, extremities motor strength intact, moves all extremities. Neurologic: No overt focal deficits, CN's II-XI not formally tested but appear grossly intact bilaterally. Discharge Data Allergies Allergy/AdvReac Type Severity Reaction Status Date / Time amoxicillin [From Augmentin] AdvReac Intermediate ABD Verified 02/22/24 16:30 PAIN/VOMITING azithromycin [From Zithromax] AdvReac Intermediate Diarrhea Verified 02/22/24 16:30 clavulanic acid AdvReac Intermediate ABD Verified 02/22/24 16:30 [From Augmentin] PAIN/VOMITING doxycycline AdvReac Intermediate Diarrhea Verified 02/22/24 16:30 Macrolide Antibiotics AdvReac Intermediate Diarrhea Verified 02/22/24 16:30 salicylates AdvReac Intermediate INTOLERANCE Verified 02/22/24 16:30 Tetracyclines AdvReac Intermediate Diarrhea Verified 02/22/24 16:30 Consultations 04/30/24 11:43 ED Decision to Admit Stat 05/01/24 09:26 Consult Cardiology Routine 05/02/24 15:49 Consult Neurology Routine Ordered Studies 04/30/24 10:25 CT head/brain wo con Stat 04/30/24 10:35 CT Abd and Pelvis [CT abd pelvis wo con] Stat 04/30/24 12:32 US pelvic complete Routine 04/30/24 13:01 Carotid duplex [US carotid doppler BI] Routine 05/02/24 15:29 CT head/brain wo con Urgent 05/02/24 17:22 CT angio head w con Routine CT angio neck with con Routine 05/03/24 00:00 MR brain wo/w con Routine Hospital Course (1) Syncope and collapse: (2) Occlusion of left internal carotid artery: (3) Hypertrophic cardiomyopathy: (4) Sigmoid diverticulitis: (5) COVID-19: Plan 73 yo F w/ PMH of HLD, COPD, HTN, anterior cerebral artery aneurysm, abdominal aortic aneurysm, descending thoracic aortic aneurysm, adenocarcinoma of colon s/p right hemicolectomy in 2022, basal septal hypertrophic cardiomyopathy, chronic left internal carotid artery occlusion, palpitations, GERD, protein- calorie malnutrition, tobacco use disorder and anxiety/depression presented to the ED on 04/30/2024 secondary to syncopal episodes. She reports having chronic abdominal pain for about 2 years since her surgery. She was managed for the following: Recent Syncopal Events ISO Chronic Left ICA Occlusion, Hypertrophic Cardiomyopathy Patient presented with complaint of "blacking out" x 2 the night prior to presentation, first episode when she was going to get on the commode and she missed the commode and fell on the floor and blacked out after that/she did not hit her head. She got back up and fell back down again when she tried to sit on the commode. She denied hitting her head during that time as well. Admitting CT head with no acute finding or intracranial hemorrhage.Orthostatic vitals were negative.Carotid Doppler redemonstrated her extensive atherosclerosis with evidence of chronic left ICA occlusion [has been evaluated by [facility] neurosurgery last October with cervical + cerebral angiogram, Dr. Ari Toney at [facility].] Prior attending reached out to Dr. Toney via [place] text: Reports he tried to get the patient to come back into his office for further treatment however she has not seen him since last October. We were able to discuss her carotid doppler fin dings as per above, mentions he would not do anything specifically for this finding at least for the time being. If she were to develop a bad headache or altered mental status, he recommends obtaining a CT to rule out subarachnoid hemorrhage in the setting of her known anterior communicating artery aneurysm. Cardio also evaled her given septal HOCM and recurrent syncopal events, per eval, pt's presentation is noncardiac in nature. Recs were c/w home cardiac meds and OP vascular Sx eval. ECHO this admission w/ EF of 65-70%, LV wall motion is normal. Neurology evaluated 05/03, CTA head and neck and MRI brain with no new acute finding. Chronic findings were noted. Reached out to neuro 05/04, ok to dc from their POV. No further presyncope last 2 days. Pt declined PT yesterday. Acute Sigmoid Diverticulitis: CTAP on admission concerning for mild acute sigmoid diverticulitis. Patient was initially started on IV ciprofloxacin/Flagyl. Ciprofloxacin should be used with caution in patients with aortic dilation or known aortic aneurysms, therefore patient was transitioned to IV ertapenem 05/01. Ciprofloxacin/Flagyl Was discontinued. Probiotic on board. continue atb for total of 7 days. patient's lower abdominal pain has resolved. Has USG guided peripheral line, pt will get 3 more days of iv antibiotic on discharge. Musculoskeletal versus gastritis plan: Patient reports upper belly pain/anterior lower rib cage pain, reports it as more of muscular pain than " GI pain" and hence she has been declining Tums. We discussed in detail to try scheduled Tums and Pepcid and follow-up on the pain control. Also will order diclofenac gel and as needed oxycodone for severe pain.Patient has been noncompliant with Tums. Patient will be discharged on PPI to see if her symptoms improve, patient to follow-up with GI physician if her symptoms does not improve. COVID-19 Positive: Suspect this is not reinfection as the patient does not have any respiratory symptoms although she is endorsing some generalized weakness. Patient recently was diagnosed with COVID-19 in February. Chest x-ray on admission was unremarkable. Will continue with isolation precautions for now. Continue to closely monitor respiratory status. Incidental CTAP Finding: CTAP as per above incidentally noted a 2.7 cm hyperdense focus within the right adnexa which could represent right ovary although was denser than expected. Pelvic ultrasound was obtained which did not show any evidence of a definite uterine abnormality. This test unfortunately did not allow for visualization of the ovaries. This finding can further be worked up as an outpatient unless her abdominal pain does not improve on the IV antibiotic above ISO her acute sigmoid diverticulitis; would then pursue further imaging/testing while inpatient regarding this finding. Lower belly pain seems to have improved. f/u gynecology as OP. Patient has been made aware about these findings and need for gynecology follow-up. H/O Colon Cancer S/P Surgery: Patient with prior history of adenocarcinoma of colon. Underwent laparoscopic right hemicolectomy in October 2022. Currently under obse rvation with Dr. Moe. Other Chronic Medical Conditions: * Tobacco Use Disorder - Still smokes 0.5ppd, nicotine patch ordered. Encourage smoking cessation. * COPD - No evidence of acute exacerbation, continue home meds. Severe Protein- Calore Malnutrition - Nutrition consulted. * Known 3.8cm descending thoracic aortic aneurysm and 3.0cm abdominal aortic aneurysm - follows with Dr. Garcia at [facility]. 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 DVT Prophylaxis: SQ Heparin Code Status: FULL CODE PCP: Adriel Whitaker MD Disposition: Admitted in Med/Telemetry , pending EEG read, pt/ot, cm to assist. will likely need iv antibiotic on dc. Patient's son Cheikh was given a phone call 05/03, updated on current status/went over each point as above, he voiced understanding and was agreeable to plan of care. Patient is being discharged to home with home health with following instruction at the point of discharge: Follow-up with your primary care physician within a week time and likely you will need labs CBC/CMP/magnesium/phosphorus. 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 You will need to follow-up with your neurosurgeon Dr. Toney in 1 to 2 weeks time upon discharge. For your atherosclerotic disease of the neck you will benefit from vascular surgery evaluation as outpatient, coordinate with your PCP to set up the test. You were treated for acute diverticulitis, you will need 3 more days of IV antibiotic upon discharge. For your possible gastritis pain, your will be discharged on pantoprazole twice a day for a month time, if no improvement then you will benefit by having GI physician evaluation. Coordinate with your PCP office to set up the referral. As discussed at the bedside, there was incidental finding of 2.7 cm hyperdense foci within the right adnexa/possible right ovary. You will need gynecology evaluation as an outpatient. Coordinate with your to set up the referral. Take your medications as prescribed. Please make sure that you are able to get your medications today by calling your pharmacy before you leave the hospital so that your treatment continuity is not broken. Home Health Attestation I certify that this patient is under my care and that I, or a physicians executive personal assistant working with me, had a face to-face encounter that meets the [facility] [id number] encounter requirements with this patient. The encounter with the patient was in whole, or in part, for the following medical condition, which is the primary reason for home health care (list medical condition): I certify that, based on my findings, the following services are medically necessary home health services: My clinical findings support the need for the above services because: Skilled Nsg Instruction New Medications Further, I certify that my clinical findings support that this patient is homebound (i.e. absences from home require considerable and taxing effort and are for medical reasons or zoroastrianism services or infrequently or of short d uration when for other reasons) because: Certification for Home Health Services: Based on the above findings, I certify that this patient is confined to the home and needs intermittent custodial care, physical therapy and/or speech therapy or continues to need occupational therapy. The patient is under my care, and I have initiated the establishment of the plan of care. This patient will be followed by a physician who will periodically review the plan of care. Total Time Total Time Spent Total Time Spent (In Minutes): 45 Discharge Plan Discharge Items Patient Disposition: Home - Home Health Services Reason For Visit: SYNCOPE TWICE, DIZZINESS, ABDOMINAL PAIN Discharge Diagnosis: Recurrent syncopal events HO Chronic Left ICA Occlusion, Hypertrophic Cardiomyopathy Acute Sigmoid Diverticulitis Musculoskeletal versus gastritis pian Incidental CTAP Finding of Rt adnexal mass Activity: Resume your previous activity Non-emergency contact: Primary Care Provider Call non-emergency contact if: you have any medication questions and your symptoms worsen Follow-up/Referrals: Adriel Whitaker MD [Primary Care Provider] - Diet: Low Fiber and Low Fat Addtl Attending Provider Instructions: Follow-up with your primary care physician within a week time and likely you will need labs CBC/CMP/magnesium/phosphorus. 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 You will need to follow-up with your neurosurgeon Dr. Toney in 1 to 2 weeks time upon discharge. For your atherosclerotic disease of the neck you will benefit from vascular surgery evaluation as outpatient, coordinate with your PCP to set up the test. You were treated for acute diverticulitis, you will need 3 more days of IV antibiotic upon discharge. For your possible gastritis pain, your will be discharged on pantoprazole twice a day for a month time, if no improvement then you will benefit by having GI physician evaluation. Coordinate with your PCP office to set up the referral. As discussed at the bedside, there was incidental finding of 2.7 cm hyperdense foci within the right adnexa/possible right ovary. You will need gynecology evaluation as an outpatient. Coordinate with your to set up the referral. Take your medications as prescribed. Please make sure that you are able to get your medications today by calling your pharmacy before you leave the hospital so that your treatment continuity is not broken. Pending Studies at Discharge: No Stand-Alone Forms: My [facility], Smoking Cessation Medications and DC Order Prescriptions: New nicotine 7 mg/24 hr Patch 24 Hour 1 patch transdermal QAM Qty: 28 0RF rosuvastatin 20 mg Tablet 20 mg PO QAM Qty: 30 0RF Advanced Probiotic 625 mg (10 billion cell) Capsule 1 cap PO DAILY 7 Days Qty: 7 0RF pantoprazole 40 mg tablet,delayed release (DR/EC) 40 mg PO BID 28 Days Qty: 56 0RF ertapenem 1 gram recon soln 1 g IV DAILY 3 Days Qty: 3 0RF Continued albuterol sulfate 90 mcg/actuation HFA aerosol inhaler 2 puff INHALATION Q6H PRN (Reason: Shortness Of Breath Or Wheezing) alprazolam 0.25 mg tablet 0.25 mg PO TID PRN (Reason: anxiety ) trazodone 100 mg tablet 50 mg PO HS paroxetine HCl 12.5 mg tablet extended release 24 hr 12.5 mg PO QAM carvedilol 3.125 mg tablet 3.125 mg PO BID aspirin 81 mg Tablet,Chewable 81 mg PO QAM Rx Instructions: OTC unable to verify amlodipine 5 mg tablet 5 mg PO QAM fluticasone propionate 50 mcg/actuation [place],Suspension 2 spray NA DAILY PRN (Reason: Nasal congestion) Qty: 16 0RF docusate sodium 100 mg Capsule 100 mg PO BID PRN (Reason: Constipation) Qty: 30 0RF Discharge Orders: Discharge Order (Routine); Ordered 05/04/24 Ordered By: Priscilla Raines/Other Patient Handouts: Low-Fiber Diet Admission Data Admit Date/Time: 04/30/24 12:01 Attending Provider: Priscilla Longo Admit Provider: Yuridia Isaacs I. Primary Care Provider: Adriel Whitaker Other Providers: Yuridia Isaacs Anthony
== END 2024-05-04 14:51 | disposition home or self-care (01) | DRG 391 ==
LOC: ED 09:53 → SUATTDRO 12:01 → 2N 12:01

== ENCOUNTER 2024-07-03 09:09 | Observation (INO) ==
--- NOTE | 2024-07-03 09:40 | XRay Report ---
XR chest 1V portable CLINICAL HISTORY: Chest pain, nonspecific COMPARISON STUDY: 04/30/2024 FINDINGS: Heart size and pulmonary vasculature are normal. No effusion, consolidation, or pneumothora x. IMPRESSION: No acute findings. ACT 112: Negative or not required by law. Electronically signed by: Jimbo Rojo M.D. 07/03/2024 9:39 AM
[2024-07-03 10:00] LABS: Basophils # (auto) 0.04 K/uL (0.00-0.20); Basophils % (auto) 0.7 %; Eosinophils # (auto) 0.08 K/uL (0.00-0.50); Eosinophils % (auto) 1.4 %; Hematocrit (blood only) 37.4 % (37.0-47.0); Hemoglobin 12.4 g/dl (12.0-16.0); Immature Granulocytes # (auto) 0.01 K/uL (0.01-0.20); Immature Granulocytes % (auto) 0.2 %; Lymphocytes # (auto) 1.41 K/uL (1.20-3.40); Lymphocytes % (auto) 24.9 %; Mean Corpuscular Hemoglobin 30.7 pg (25.0-34.0); Mean Corpuscular Hgb Conc 33.2 g/dL (32.0-36.0); Mean Corpuscular Volume 92.6 fL (80.0-100.0); Mean Platelet Volume 10.5 fL (9.4-12.4); Monocytes # (auto) 0.45 K/uL (0.11-0.59); Monocytes % (auto) 7.9 %; Neutrophils # (auto) 3.68 K/uL (1.40-6.50); Neutrophils % (auto) 64.9 %; Platelet Count 142 K/uL (130-400); RDW Coefficient of Variation 12.2 % (11.5-14.5); RDW Standard Deviation 41.7 fL (36.4-46.3); Red Blood Count 4.04 M/uL (4.20-5.40); White Blood Count 5.67 K/ul (4.8-10.8)
[2024-07-03 10:14] LABS: Albumin Globulin Ratio 1.8 (0.9-2); Albumin Level 4.2 gm/dl (3.4-5.0); Bilirubin,Total 0.5 mg/dl (0.2-1.0); Calcium 9.5 mg/dl (8.6-10.3); Creatinine Clr Calc Pharmacy 35.9 ml/min; Globulin 2.4 gm/dl (2.5-4.0); Potassium 3.9 mmol/L (3.5-5.1); Total Protein 6.6 gm/dl (6.0-8.3)
[2024-07-03 10:29] LABS: Partial Thromboplastin Ratio 0.9; Partial Thromboplastin Time 25 Seconds (21-31); Prothrombin Time 11.1 Seconds (9.0-12.0)
--- NOTE | 2024-07-03 10:33 | Emergency Department Note ---
Impression & Plan Hypoglycemia, Hypertension, Abnormal weight loss, Acute alteration in mental status ED Provider Note NAME: YA RIVERA AGE: 73 SEX: F : 1950 ARRIVES VIA: Walk-In INFORMANT: Patient, ED PROVIDER(S): Cheyenne Mccallum MD CHIEF COMPLAINT: Dizziness, weakness, nausea, vomiting, chest pain HPI: This is a 73-year-old female with history of colon cancer status post resection presenting for weakness, abdominal pain, nausea vomiting. Patient is somewhat vague with her symptoms but states that over the past 1 to 2 months she has lost about 40 pounds. She states that she has had abdominal pain that is intermittent. She has a rash on her abdomen as well. She notes pain is in this area. She notes weakness, fatigue, lightheadedness with standing. Notes intermittent chest pain as well ROS: See above HPI for pertinent positives & negatives. A total of 10 systems reviewed and were otherwise negative. PAST MEDICAL HISTORY: See Below PAST SURGICAL HISTORY: See Below FAMILY HISTORY: See Below SOCIAL HISTORY: See Below HOME MEDICATIONS: See Below ALLERGIES: See Below VITALS: See Below PHYSICAL EXAMINATION: General: Thin, cachectic, chronically unwell appearing Head: Normocephalic and atraumatic Eyes: Normal inspection, extraocular muscles intact Ear, nose, throat: Normal external exam Neck: Normal range of motion Respiratory: lungs clear to auscultation bilaterally Cardiovascular: Regular rate/rhythm, no murmur GI: soft, nontender, no guarding or rebound Extremities: nontender, moves all extremities Neuro: The patient awake and alert, appropriately conversive, no focal deficits, symmetric faces Skin: Warm, dry, and intact MEDICAL DECISION MAKING: This is a 73-year-old female presenting for weakness abdominal pain nausea/vomiting. Patient constellation of different symptoms. She appears very thin, has not lost significant weight. Consider failure to thrive, worsening cancer, dehydration, ACS, PE, SBO, pancreatitis. -Bloodwork is reviewed showing no significant leukocytosis, anemia, electrolyte or creatinine abnormality -Urinalysis revealed no signs UTI -Upper respiratory panel negative -Patient's abdominal CT reveals no signs of intra-abdominal process -Patient had episode of acute confusion. She was hypoglycemic and time to about 63. We have given her amp of D50. She was hypertensive into the 230s. -At this time there is unknown reason reason for patient's hypoglycemia. Believe this is likely why she became confused. Will admit for this as well as patient having lost over 60 pounds, having generalized weakness. Consider failure to thrive. -Discussed care with [facility] service Differential diagnosis: Failure to thrive, SBO, ACS, pancreatitis, Diagnostics interpreted by me: ECG: ECG independently interpreted by me with normal sinus rhythm at 75 normal axis, normal VT, normal QRS, normal QTc, no ST segment elevations consistent with STEMI criteria, poor baseline Cardiac Monitoring: An order was placed for continuous cardiac monitoring. The monitor shows a rate of 75 with sinus rhythm. Past Med/Surg History Problem List (Updated 07/03/24 @ 17:08 by Cheyenne Mccallum MD) Acute alteration in mental status (Acute) Abnormal weight loss (Acute) Hypertension (Acute) Hypoglycemia (Acute) Episode of unresponsiveness Occlusion of left internal carotid artery Carotid artery disease Dyslipidemia, goal LDL below 70 Hypertrophic cardiomyopathy Syncope and collapse (Acute) Generalized weakness (Acute) Diverticulitis (Acute) Sigmoid diverticulitis Generalized weakness (Acute) Arthralgia COVID-19 (Acute) Generalized weakness JEANA (acute kidney injury) (Acute) Syncope (Acute) Acute dehydration (Acute) Weakness (Acute) Hypertensive crisis (Acute) Hyponatremia (Acute) Hypokalemia (Acute) Hypertension Recurrent falls (Acute) Anxiety GERD (gastroesophageal reflux disease) Dyslipidemia COPD (chronic obstructive pulmonary disease) (Acute) Medical History Acute dehydration Weakness AAA (abdominal aortic aneurysm) Surgical History S/P tubal ligation Family History Other Diabetes Social History Smoking Status: Current every day smoker Tobacco Type: Cigarettes packs per day: 0.5; Cigarettes Per Day: 5; Second Hand Exposure: Yes; Do You Dip or Chew Tobacco: No; Hx Alcohol Use: No Hx Substance Use: No Preferred Language: Citizen Of [place] Communication Ability: Effective Gill Box Fixer Required: No Beliefs That Will Affect Care: None Current Living Situation: Spouse Current Living Situation Comment: [place] Other Information That Helps Us Care for You: No Feels Safe at Home: Yes Safety Concerns: Feels Safe At This Time Assistive Devices: None Allergies Allergies Allergy/AdvReac Type Severity Reaction Status Date / Time amoxicillin [From Augmentin] AdvReac Intermediate ABD Verified 05/07/24 09:05 PAIN/VOMITING azithromycin [From Zithromax] AdvReac Intermediate Diarrhea Verified 05/07/24 09:05 clavulanic acid AdvReac Intermediate ABD Verified 05/07/24 09:05 [From Augmentin] PAIN/VOMITING doxycycline AdvReac Intermediate Diarrhea Verified 05/07/24 09:05 Macrolide Antibiotics AdvReac Intermediate Diarrhea Verified 05/07/24 09:05 salicylates AdvReac Intermediate INTOLERANCE Verified 05/07/24 09:05 Tetracyclines AdvReac Intermediate Diarrhea Verified 05/07/24 09:05 Home Meds Home Medications Medication Instructions Recorded Confirmed albuterol sulfate 90 mcg/actuation 2 puff inhalation Q6H PRN 08/23/22 07/03/24 aerosol inhaler Shortness Of Breath Or Wheezing alprazolam 0.25 mg tablet 0.25 mg PO TID PRN anxiety 05/02/23 07/03/24 paroxetine HCl 12.5 mg 12.5 mg PO QAM 05/02/23 07/03/24 tablet,extended release 24 hr trazodone 100 mg tablet 100 mg PO HS 05/02/23 07/03/24 amlodipine 5 mg tablet 5 mg PO QAM 07/07/23 07/03/24 aspirin 81 mg chewable tablet 81 mg PO QAM 09/21/23 07/03/24 carvedilol 3.125 mg tablet 3.125 mg PO BID 09/21/23 07/03/24 loratadine 10 mg tablet 10 mg PO QAM 07/03/24 07/03/24 Previous Rx's Medication Instructions Recorded docusate sodium 100 mg capsule 100 mg PO BID PRN Constipation #30 02/25/24 caps fluticasone propionate 50 2 spray NA DAILY PRN Nasal 02/25/24 mcg/actuation nasal congestion #16 grams spray,suspension nicotine 7 mg/24 hr daily 1 patch transdermal QAM #28 ea 05/04/24 transdermal patch rosuvastatin 20 mg tablet 20 mg PO QAM #30 tabs 05/04/24 Results & Data (ED) Vital Signs Vital Signs - 24 hr 07/03/24 09:13 07/03/24 10:00 07/03/24 11:00 Temperature 36 C L Temperature Source Temporal Artery Scan Pulse Rate 77 67 68 Pulse Rate from SpO2 Sensor Pulse Rhythm Regular Respiratory Rate 18 16 Respiratory Effort / Characteristics Non-Labored Respiratory Depth Normal Respiratory Pattern Regular Blood Pressure 153/92 H Blood Pressure Mean 112 Pulse Oximetry 98 97 Oxygen Delivery Method Room Air Room Air Sepsis Recent Fever Within 48 Hours No Sepsis New/Unexplained Change in Mental Status N/A Sepsis Action Taken by Nursing No Action Required 07/03/24 11:09 07/03/24 11:30 07/03/24 12:31 Temperature Temperature Source Pulse Rate 68 68 Pulse Rate from SpO2 Sensor 68 68 Pulse Rhythm Respiratory Rate 29 H 16 Respiratory Effort / Characteristics Respiratory Depth Respiratory Pattern Blood Pressure 186/97 H 186/100 H 229/167 H Blood Pressure Mean 140 156 199 Pulse Oximetry 98 97 Oxygen Delivery Method Sepsis Recent Fever Within 48 Hours Sepsis New/Unexplained Change in Mental Status Sepsis Action Taken by Nursing 07/03/24 12:32 07/03/24 12:36 07/03/24 12:41 Temperature Temperature Source Pulse Rate 68 Pulse Rate from SpO2 Sensor Pulse Rhythm Respiratory Rate 30 H Respiratory Effort / Characteristics Respiratory Depth Respiratory Pattern Blood Pressure 236/112 H 199/106 H Blood Pressure Mean 141 137 Pulse Oximetry Oxygen Delivery Method Sepsis Recent Fever Within 48 Hours Sepsis New/Unexplained Change in Mental Status Sepsis Action Taken by Nursing 07/03/24 13:00 Temperature Temperature Source Pulse Rate 71 Pulse Rate from SpO2 Sensor 77 Pulse Rhythm Respiratory Rate 22 Respiratory Effort / Characteristics Respiratory Depth Respiratory Pattern Blood Pressure 206/109 H Blood Pressure Mean 141 Pulse Oximetry 75 L Oxygen Delivery Method Sepsis Recent Fever Within 48 Hours Sepsis New/Unexplained Change in Mental Status Sepsis Action Taken by Nursing Laboratory Data 07/03/24 09:25 07/03/24 09:25 Lab Results 07/03/24 07/03/24 07/03/24 Range/Units 09:25 11:47 12:36 WBC 5.67 (4.8-10.8) K/ul RBC 4.04 L (4.20-5.40) M/uL Hgb 12.4 (12.0-16.0) g/dl Hct 37.4 (37.0-47.0) % MCV 92.6 (80.0-100.0) fL MCH 30.7 (25.0-34.0) pg MCHC 33.2 (32.0-36.0) g/dL RDW Std Deviation 41.7 (36.4-46.3) fL RDW Coeff of Yamile 12.2 (11.5-14.5) % Plt Count 142 (130-400) K/uL MPV 10.5 (9.4-12.4) fL Immature Gran % (Auto) 0.2 % Neut % (Auto) 64.9 % Lymph % (Auto) 24.9 % [place] % (Auto) 7.9 % Eos % (Auto) 1.4 % Baso % (Auto) 0.7 % Neut # (Auto) 3.68 (1.40-6.50) K/uL Lymph # (Auto) 1.41 (1.20-3.40) K/uL [place] # (Auto) 0.45 (0.11-0.59) K/uL Eos # (Auto) 0.08 (0.00-0.50) K/uL Baso # (Auto) 0.04 (0.00-0.20) K/uL Immature Gran # (Auto) 0.01 (0.01-0.20) K/uL PT 11.1 (9.0-12.0) Seconds INR 1.0 (0.9-1.1) APTT 25 (21-31) Seconds PTT Ratio 0.9 Sodium 139 (136-145) mmol/L Potassium 3.9 (3.5-5.1) mmol/L Chloride 102 (98-107) mmol/L Carbon Dioxide 34 H (21-32) mmol/L Anion Gap 3 (3-11) BUN 25 H (6-23) mg/dl Creatinine 0.96 (0.6-1.2) mg/dl Est Cr Clr Drug Dosing 35.9 ml/min eGFR 63.25 BUN/Creatinine Ratio 26.0 H (10-20) Glucose 90 (70-99(Fasting)) mg/dl POC Glucose 63 L* (70-99) mg/dl Calcium 9.5 (8.6-10.3) mg/dl Total Bilirubin 0.5 (0.2-1.0) mg/dl AST 20 (13-39) U/L ALT 25 (7-52) U/L Alkaline Phosphatase 47 (34-104) U/L Troponin I High Sens 7.0 (0-14) pg/ml Total Protein 6.6 (6.0-8.3) gm/dl Albumin 4.2 (3.4-5.0) gm/dl Globulin 2.4 L (2.5-4.0) gm/dl Albumin/Globulin Ratio 1.8 (0.9-2) Lipase 56 (11-82) U/L Urine Color Urine Appearance (Clear) Urine pH (4.5-7.5) Ur Specific [place] (1.000-1.030) Urine Protein (Negative) Urine Glucose (UA) (Negative) Urine Ketones (Negative) Urine Blood (Negative) Urine Nitrite (Negative) Urine Bilirubin (Negative) Urine Urobilinogen (Negative) Ur Leukocyte Esterase (Negative) Adenovirus (PCR) Not Detected (NotDetected) B. pertussis DNA (PCR) Not Detected (NotDetected) B.parapertussis DNA PCR Not Detected (NotDetected) C. pneumoniae DNA (PCR) Not Detected (NotDetected) Coronavirus OC43 (PCR) Not Detected (NotDetected) Coronavirus HKU1 (PCR) Not Detected (NotDetected) Coronavirus 229E (PCR) Not Detected (NotDetected) SARS-CoV-2 (PCR) Not Detected (NotDetected) Coronavirus NL63 (PCR) Not Detected (NotDetected) Human Metapneumovir PCR Not Detected (NotDetected) Influenza Type A (PCR) Not Detected (NotDetected) Influenza Type B (PCR) Not Detected (NotDetected) M. pneumoniae (PCR) Not Detected (NotDetected) Parainfluenza 1 (PCR) Not Detected (NotDetected) Parainfluenza 2 (PCR) Not Detected (NotDetected) Parainfluenza 3 (PCR) Not Detected (NotDetected) Parainfluenza 4 (PCR) Not Detected (NotDetected) RSV (PCR) Not Detected (NotDetected) Entero/Rhino (PCR) Not Detected (NotDetected) 07/03/24 Range/Units 13:02 WBC (4.8-10.8) K/ul RBC (4.20-5.40) M/uL Hgb (12.0-16.0) g/dl Hct (37.0-47.0) % MCV (80.0-100.0) fL MCH (25.0-34.0) pg MCHC (32.0-36.0) g/dL RDW Std Deviation (36.4-46.3) fL RDW Coeff of Yamlie (11.5-14.5) % Plt Count (130-400) K/uL MPV (9.4-12.4) fL Immature Gran % (Auto) % Neut % (Auto) % Lymph % (Auto) % [place] % (Auto) % Eos % (Auto) % Baso % (Auto) % Neut # (Auto) (1.40-6.50) K/uL Lymph # (Auto) (1.20-3.40) K/uL [place] # (Auto) (0.11-0.59) K/uL Eos # (Auto) (0.00-0.50) K/uL Baso # (Auto) (0.00-0.20) K/uL Immature Gran # (Auto) (0.01-0.20) K/uL PT (9.0-12.0) Seconds INR (0.9-1.1) APTT (21-31) Seconds PTT Ratio Sodium (136-145) mmol/L Potassium (3.5-5.1) mmol/L Chloride (98-107) mmol/L Carbon Dioxide (21-32) mmol/L Anion Gap (3-11) BUN (6-23) mg/dl Creatinine (0.6-1.2) mg/dl Est Cr Clr Drug Dosing ml/min eGFR BUN/Creatinine Ratio (10-20) Glucose (70-99(Fasting)) mg/dl POC Glucose (70-99) mg/dl Calcium (8.6-10.3) mg/dl Total Bilirubin (0.2-1.0) mg/dl AST (13-39) U/L ALT (7-52) U/L Alkaline Phosphatase (34-104) U/L Troponin I High Sens (0-14) pg/ml Total Protein (6.0-8.3) gm/dl Albumin (3.4-5.0) gm/dl Globulin (2.5-4.0) gm/dl Albumin/Globulin Ratio (0.9-2) Lipase (11-82) U/L Urine Color Yellow Urine Appearance Clear (Clear) Urine pH 8.5 H (4.5-7.5) Ur Specific [place] 1.014 (1.000-1.030) Urine Protein Negative (Negative) Urine Glucose (UA) 2+ H (Negative) Urine Ketones Negative (Negative) Urine Blood Negative (Negative) Urine Nitrite Negative (Negative) Urine Bilirubin Negative (Negative) Urine Urobilinogen Negative (Negative) Ur Leukocyte Esterase Negative (Negative) Adenovirus (PCR) (NotDetected) B. pertussis DNA (PCR) (NotDetected) B.parapertussis DNA PCR (NotDetected) C. pneumoniae DNA (PCR) (NotDetected) Coronavirus OC43 (PCR) (NotDetected) Coronavirus HKU1 (PCR) (NotDetected) Coronavirus 229E (PCR) (NotDetected) SARS-CoV-2 (PCR) (NotDetected) Coronavirus NL63 (PCR) (NotDetected) Human Metapneumovir PCR (NotDetected) Influenza Type A (PCR) (NotDetected) Influenza Type B (PCR) (NotDetected) M. pneumoniae (PCR) (NotDetected) Parainfluenza 1 (PCR) (NotDetected) Parainfluenza 2 (PCR) (NotDetected) Parainfluenza 3 (PCR) (NotDetected) Parainfluenza 4 (PCR) (NotDetected) RSV (PCR) (NotDetected) Entero/Rhino (PCR) (NotDetected) Administered Medications Acetaminophen (Acetaminophen 325 Mg Tab) 650 mg PO Q4H PRN PRN Reason: pain/fever Stop: 08/02/24 13:35 Last Admin: 07/03/24 16:01 Dose: 650 mg Documented By: MAXIMO Alprazolam (Alprazolam 0.25 Mg Tablet) 0.25 mg PO TID PRN PRN Reason: anxiety Stop: 08/02/24 15:41 Last Admin: 07/03/24 16:02 Dose: 0.25 mg Documented By: MAXIMO Lactated Ringer's (Lr) 1,000 mls @ 80 mls/hr IV .[id number] KEELY Stop: 07/04/24 15:59 Last Admin: 07/03/24 16:19 Dose: 80 mls/hr Documented By: WRLilly Discontinued Medications Dextrose (Dextrose 50% 50 Ml Syringe) Confirm Administered Dose 50 ml IV .STK- MED ONE Stop: 07/03/24 12:40 Last Admin: 07/03/24 13:00 Dose: 50 ml Documented By: CEF Sodium Chloride (Nss) 1,000 mls @ 999 mls/hr IV .[id number] ONE Stop: 07/03/24 11:31 Last Infusion: 07/03/24 12:48 Dose: Infused Documented By: Admin: 07/03/24 11:09 Dose: 999 mls/hr Documented By: GERARDO Ioversol (Optiray 320 100ml) 94 ml IV ONCE ONE Stop: 07/03/24 10:50 Last Admin: 07/03/24 10:50 Dose: 94 ml Documented By: BRIDGETT Imaging Data Radiologist's Impression: Chest X-Ray 07/03/24 09:17 XR chest 1V portable CLINICAL HISTORY: Chest pain, nonspecific COMPARISON STUDY: 04/30/2024 FINDINGS: Heart size and pulmonary vasculature are normal. No effusion, consolidation, or pneumothorax. IMPRESSION: No acute findings. ACT 112: Negative or not required by law. Electronically signed by: Jimbo Rojo M.D. 07/03/2024 9:39 AM Abdomen/Pelvis CT 07/03/24 10:[address] WITH IV CONTRAST CT DOSE: 324. mGy.cm HISTORY: Recent colon resection, 40lb loss, abd pain, n/v TECHNIQUE: Multiaxial CT images of the abdomen and pelvis were performed following the IV administration of 90 cc of Optiray, A dose lowering technique was utilized adhering to the principles of ALARA. COMPARISON STUDY: 09/21/2023 FINDINGS: ABDOMEN: There are a few tiny liver cysts, stable. Gallbladder is contracted. Spleen, pancreas, and adrenal glands are unremarkable. Kidneys show no hydronephrosis. There are a few tiny kidney cysts. There are scattered atherosclerotic calcifications. Stable mild lobulation of the distal abdominal aorta measuring 2.5 cm greatest AP dimension. Pelvis: Uterus is either very diminutive or absent. No adnexal mass seen. Urinary bladder is nondistended. Stable right hemicolectomy. There is sigmoid diverticulosis. No acute diverticulitis. No bowel inflammation or obstruction. No free fluid, free air, or abscess. No enlarged adenopathy. Osseous structures: There is stable mild height loss at the L5 vertebral body. Stable mild lumbar degenerative changes. IMPRESSION: No acute findings. ACT 112: Negative or not required by law. The above report was generated using voice recognition software. It may contain grammatical, syntax or spelling errors. Electronically signed by: Jimbo Rojo M.D. 07/03/2024 11:15 AM Discharge Plan Visit Data Chief Complaint: Chest Pain Stated Complaint: VOMITING, CHEST PAIN ED Provider: Cheyenne Mccallum Discharge Problem: Hypoglycemia, Hypertension, Abnormal weight loss, Acute alteration in mental status Patient Disposition: Admitted As Inpatient Discharge Instructions Interventions: ED Discharge Assessment Last Done: 07/03/24 15:12
[2024-07-03] MEDS: OPTIRAY 320 100ml IV ONE (10:50)
[2024-07-03] MEDS: SODIUM CHLORIDE 0.9% 1,000 ML IV ONE (11:09)
--- NOTE | 2024-07-03 11:17 | CT Scan Report ---
ABDOMEN AND PELVIS CT WITH IV CONTRAST CT DOSE: 324. mGy.cm HISTORY: Recent colon resection, 40lb loss, abd pain, n/v TECHNIQUE: Multiaxial CT images of the abdomen and pelvis were performed following the IV administrat ion of 90 cc of Optiray, A dose lowering technique was utilized adhering to the principles of ALARA. COMPARISON STUDY: 09/21/2023 FINDINGS: ABDOMEN: There are a few tiny liver cysts, stable. Gallbladder is contracted. Spleen, pancreas, and a drenal glands are unremarkable. Kidneys show no hydronephrosis. There are a few tiny kidney cysts. Th ere are scattered atherosclerotic calcifications. Stable mild lobulation of the distal abdominal aort a measuring 2.5 cm greatest AP dimension. Pelvis: Uterus is either very diminutive or absent. No adnexal mass seen. Urinary bladder is nondiste nded. Stable right hemicolectomy. There is sigmoid diverticulosis. No acute diverticulitis. No bowel inflammation or obstruction. No free fluid, free air, or abscess. No enlarged adenopathy. Osseous structures: There is stable mild height loss at the L5 vertebral body. Stable mild lumbar deg enerative changes. IMPRESSION: No acute findings. ACT 112: Negative or not required by law. The above report was generated using voice recognition software. It may contain grammatical, syntax o r spelling errors. Electronically signed by: Jimbo Rojo M.D. 07/03/2024 11:15 AM
--- OUTSIDE RECORDS SUMMARY | 2024-07-03 11:59 | External Medical Summary | Summary of Care ---
Author Name Unknown Organization [facility] Address [address] [place] [address] Phone [phone] Care Team Providers Care Wood Milling Machine Hand Name Role Phone Adriel Whitaker MD Primary Care Provider +1- [phone] Reason for Visit * Reason Onset Date Comments Hospital Follow-Up 05/07/2024 [facility] ([facility]) Encounter Details Date Type Department Care Team (Late st Contact Info) Description 05/07/[address] [facility] [address] [place] [address] Perri Luna, JP Hospital Follow-Up ([facility] ([facility])) Allergies Active Allergy Reactions Criticality Noted Date Comments Cisapride 11/05/1998 diarrhea Doxycycline 11/05/1998 diarrhea Macrolides And Ketolides 05/17/2000 zithromax, diarrhea Salicylates 11/05/1998 intol documented as of this encounter (statuses as of 05/07/2024) Medications Acetaminophen 500 MG Oral Tablet (Tylenol) [...] tab daily. 60 Tablet 5 4 Active PARoxetine HCl ER 12.5 MG Oral Tablet [...] the morning. 90 Tablet 3 4 Active Fluticasone Propionate 50 MCG/ACT Nasal Suspension [...] 1 Tablet before bedtime. 180 Tablet 3 Active ALPRAZolam 0.25 MG Oral Tablet (xaNAX)Indicati ons:Agoraphobia with panic disorder,Severe anxiety with panic,Controlle d substance agreement signed,Anxiety Take 1 Tablet by mouth 3 times a day as needed for Anxiety. 90 Tablet Active Advanced Probiotic Oral Capsule Take 1 Capsule by mouth in the morning. 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 Not on file [...] Assessment Author No 11/08/2022 3:05 PM Carine Cloe RN * Do you have serious difficulty [...] Telephone Encounter - Perri Luna RN - 05/07/2024 11:01 AM EST Transitions of Care Note Reason for Referral:Recent Admission Phone visit for follow up: K[facility]RAN Admitted to: [facility], Date: 04/30/2024 Discharged to: Home with Health Services, Date: 05/04/2024 Diagnosis driving hospitalization: Recurrent Syncopal Events, H/O/ Chronic Left ICA Occlusion, Hypertrophic Cardiomyopathy, Acute Sigmoid Diverticulitis, Musculoskeletal versus Gastric Pain, Incidental CTAP Finding of Right Adnexal Mass Source/Contact: Patient SUBJECTIVE Consent: Verbal consent for review of hospital discharge: Yes REVIEW OF SYSTEMS Patient/Other Reports: Current patient/caregiver problems or concerns: Still having same abdominal pain as in hospital, noworse.Taking Pantoprazole. Had final IV atb dose and IV removed. CV: Denies problems Pulmonary: Denies problems Chills/Sweats/Fever:Denies chills/sweats Denies fever Appetite:Denies problems such as nausea, vomiting, burning, decreased appetite Current diet: Low fiber, Low fat Bowel: denies problems Bladder: denies problems Wound (If applicable): States wounds healing, Abdomen, Rt wrist and Left knee, dressing changes daily Pain:Location- Upper abdomen Intensity- 8 (Scale 0-10), no worse than in hosptial Sleep:Denies problems FUNCTIONAL STATUS: ADL'S: Needs Assistance With:N/A as pt is independent IADL'S: Needs Assistance With:Grocery Shopping, Cooking food, and Routine Housework Cognitive and Mental Health: denies problems, alert and oriented x 3, and able to communicate, understand instructions, process information. MEDICATION RECONCILIATION Medications: Discharge med list reviewed with patient or caregiver New medications: Nicotine Patch, Rosuvastatin, Advanced Probiotic, Pantoprazole, Ertapenem IV No discontinued medications ASSESSMENT Medication Risk Assessment: No risks identified Did patient fail outpatient treatment? No Discharge instructions available for review? Yes PLAN Symptom Monitoring Interventions:Member/caregiver education - signs and symptoms to contact PrimaryCare (DO NOT DELETE-Three olivarez symptoms patient is to report to PCP) 1. Chest Pain/SOB 2. Fever/chills 3. Worsening pain Voltage TesterMaintenance Groundman of Care interventions/Action Plan: 5 - 7 day follow-up with PCP in place - Date: PCP appointment 05/11/2024 Educated on role of KAMRAN completed with patient/caregiver. Educated patient/caregiver on patient right to have input on KAMRAN plan of care. Verification of Home Health/DME if indicated: YES [facility] for IV antibiotics - completed now Identified Care Gaps: Yes Care Gaps closed this call: Appointment made or confirmed and Transition of Care follow-up communication Re-evaluation of Plan of Care and progress towards goals achievement: Patient education this visit: Verbal, Confirmed PCP appointment, addressed reasons to call sooner as above Plan to instructed to call Primary Care Provider with change in symptoms or as needed before next follow-up, discharge needs met, verbalizes understanding and agrees with plan. Perri Luna, RN documented in this encounter Plan of Treatment Upcoming Encounters Date Type Department Care Team (Late st Contact Info) Description 05/11/2024 8:40 AM EST Office Visit Family [facility], [place] [facility] [address] [facility] [place] [phone] Ramiro Wong MD [address] [place] [address] 08/08/2024 11:00 AM EDT Office Visit Hematology/Oncology [facility] [address] [facility] [place] [phone] Yosvany Moe MD [address] [facility] [place] [address] 09/05/2024 8:30 AM EDT Cardiac Studies Cardiac Studies, [facility] [address] [facility] [place] [address] Scheduled Procedures Name Priority Associated Diagnoses Date/Ti [...] Comments DISCUSS TOBACCO CESSATION (REFER TO SMARTSET #9131) 1950 Alpha-1 Antitrypsin 1970 Hepatitis C Screening 1970 Cologuard 1997 Fecal Occult Blood Test 1997 Sigmoidoscopy 1997 Zoster Vaccines (1 of 2) 2002 DXA Scan 12/25/2005 12/25/1998 Mammogram 02/11/2017 02/12/2016, 08/29/2012 Adult Wellness Visit 2018 Pneumococcal Vaccine: 50+ Years (3 of 3 - PCV20 or PCV21) 03/08/2023 03/08/2018, 10/13/2006, 03/04/1994 DTap/Tdap Vaccines (2 - [...] Advance Directives occurred with: Patient Care Teams Wood Milling Machine Hand Relationship Specialty Start Date End Date Adriel Whitaker MD PCP - General Family Medicine 10/20/17 documented as of this encounter
--- OUTSIDE RECORDS SUMMARY | 2024-07-03 11:59 | External Medical Summary | Summary of Care ---
Author Name Unknown Organization [facility] Address [address] [place] [address] Phone [phone] Care Team Providers Care Caption Writer Name Role Phone Marisela Vaughan MD Primary Care Provider +1- [phone] Reason for Visit * Reason Onset Date Comments Medication Refill 06/01/2024 Encounter Details Date Type Department Care Team (Late st Contact Info) Description 06/01/2024 Refill [facility] [address] [place] [address] Marisela Vaughan MD [address] [place], [place] [phone] Agoraphobia with panic disorder; Severe anxiety with panic; Controlled substance agreement signed; Anxiety Allergies Active Allergy Reactions Criticality Noted Date Comments Cisapride 11/05/1998 diarrhea Doxycycline 11/05/1998 diarrhea Macrolides And Ketolides 05/17/2000 zithromax, diarrhea Salicylates 11/05/1998 intol documented as of this encounter (statuses as of 06/01/2024) Medications Acetaminophen 500 MG Oral Tablet (Tylenol) [...] daily. 60 Tablet 5 06/02/19 24 Active PARoxetine HCl ER 12.5 MG Oral [...] morning. 90 Tablet 3 11/23/19 24 Active Fluticasone Propionate 50 MCG/ACT Nasal Suspension [...] bedtime. 180 Tablet 3 02/28/20 24 Active Advanced Probiotic Oral Capsule Take 1 Capsule by mouth in the morning. Active ALPRAZolam 0.25 MG Oral Tablet (xaNAX)Indicati ons:Agoraphobia with panic disorder,Severe anxiety with panic,Controlle d substance agreement signed,Anxiety Take 1 Tablet by mouth 3 times a day as needed for Anxiety. 90 Tablet 06/01/19 25 Active ALPRAZolam 0.25 MG Oral Tablet (xaNAX)Indicati ons:Agoraphobia with panic disorder,Severe anxiety with panic,Controlle d substance agreement signed,Anxiety Take 1 Tablet by mouth 3 times a day as needed for Anxiety. 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 Not on file Not [...] of Assessment Author No 11/08/2022 3:05 PM Fransisca Cole RN * Do you have difficulty [...] Telephone Encounter - Marisela Vaughan MD - 06/01/2024 1:48 PM ESTSigned Prescriptions: Disp Refills ALPRAZolam 0.25 MG Oral Tablet (xaNAX) 90 Tab*0 Sig: Take 1 Tablet by mouth 3 times a day as needed for Anxiety.Authorizing Provider: MARISELA VAUGHAN * Telephone Encounter - Jaquelin Yeboah [facility] - 06/01/2024 10:17 AM ESTPending Prescriptions: Disp Refills ALPRAZolam 0.25 MG Oral Tablet (xaNAX) 90 Tab*0 Sig: Take 1 Tablet by mouth 3 times a day as needed for Anxiety. * Telephone Encounter - Jaquelin Yeboah [facility] - 06/01/2024 10:16 AM EST I have reviewed the patients controlled substance dispensing history in the Prescription Drug Monitoring Program in compliance with the [facility] regulations before prescribing a controlled substance. PDMP checked on 06/01/2024. Pending Prescriptions: Disp Refills ALPRAZolam 0.25 MG Oral Tablet (xaNAX) 90 Tab*0 Sig: Take 1 Tablet by mouth 3 times a day as needed for Anxiety. Last Visit: 04/18/2024 (in office), Visit date not found (telemedicine) Next Visit: Visit date not found Date medication was last filled: 04/16/24 Date medication is due for refill: 05/15/24 Pharmacy: [id number] Is this request for a controlled substance? Yes and Urine Drug Screen Not completed Toxicology results: Results for orders placed [...] to confirmatory testing. Please approve if appropriate. Jaquelin Herzog PharmD Clinical Pharmacist [facility] ([facility] [phone] 06/01/2024, 10:16 AM * Telephone Encounter - aKren Santos PHARM Tech - 06/01/2024 8:57 AM EST Did you pend patient's preferred pharmacy and medication before forwarding?yes Pharmacy: [id number] [address] Pending Prescriptions: Disp Refills ALPRAZolam 0.25 MG Oral Tablet (xaNAX) 90 Tab*0 Sig: Take 1 Tablet by mouth 3 times a day as needed for Anxiety. Last Visit: 04/18/2024 (in office), Visit date not found (telemedicine) Next Visit: Visit date not found If no future appointments scheduled, and last appointment is greater than a year ago, please schedule patient for a follow-up appointment Last date the medication was ordered: 04/16/2024 Is this request for a controlled substance?Yes, What was the last refill date 04/16/2024 w/ quantity 90 and dosage 0.25 mg and Urine Drug Screen was completed Urine [...] 11:41 AM ALT 11 02/06/2019 07:48 AM documented in this encounter Plan of Treatment Upcoming Encounters Date Type Department Care Team (Late st Contact Info) Description 08/08/2024 11:00 AM EDT Office Visit Hematology/Oncology [facility] [address] [place] [phone] Yosvany Moe MD [address] [facility] [place] [address] 09/05/2024 8:30 AM EDT Cardiac Studies Cardiac Studies, [facility] [address] [facility] [place] [address] Scheduled Procedures Name Priority [...] Comments DISCUSS TOBACCO CESSATION (REFER TO SMARTSET #4174) 1950 Alpha-1 Antitrypsin 1970 Hepatitis C Screening [...] Advance Directives occurred with: Patient Care Teams Caption Writer Relationship Specialty Start Date End Date Marisela Vaughan MD PCP - General Family Medicine 10/20/17 documented as of this encounter
--- OUTSIDE RECORDS SUMMARY | 2024-07-03 11:59 | External Medical Summary | Summary of Care ---
Author Name Unknown Organization [facility] Address [address] [place] [address] Phone [phone] Care Team Providers Care Sap Analyst Name Role Phone Adriel Whtiaker MD Primary Care Provider +1- [phone] Reason for Visit * Reason Onset Date Comments Hospital Follow-Up 05/04/2024 Encounter Details Date Type Department Care Team (Late st Contact Info) Description 05/04/[address] [address] Adriel Whitaker MD [address] [place] [address] Hospital Follow-Up Allergies Active Allergy Reactions Criticality Noted Date Comments Cisapride 11/05/1998 diarrhea Doxycycline 11/05/1998 diarrhea Macrolides And Ketolides 05/17/2000 zithromax, diarrhea Salicylates 11/05/1998 intol documented as of this encounter (statuses as of 05/04/2024) Medications Acetaminophen 500 MG Oral Tablet (Tylenol) [...] as of this encounter (statuses as of 05/04/2024) Active Problems Problem Noted Date Diagnosed Date [...] as of this encounter (statuses as of 05/04/2024) Resolved Problems Problem Noted Date Diagnosed Date [...] as of this encounter (statuses as of 05/04/2024) Immunizations Name Administration Dates Next Due Pneumococcal [...] 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 For your atherosclerotic disease of the neck you will benefit from vascular surgery evaluation as outpatient, coordinate with your PCP to set up the test. You were treated for acute diverticulitis, you will need 3 more days of IV antibiotic upon discharge. For your possible gastritis pain, your will be discharged on pantoprazole twice a day for a month time, if no improvement then you will benefit by having GI physician evaluation. Coordinate with yourPCP office to set up the referral. As discussed at the bedside, there was incidental finding of 2.7 cm hyperdense foci within the right adnexa/possible right ovary. You will need gynecology evaluation as an outpatient. Coordinate withyour to set up the referral. documented in this encounter Plan of Treatment Upcoming Encounters Date Type Department Care Team (Late st Contact Info) Description 05/11/2024 8:40 AM EST Office Visit [facility] [place] [address] [place] [phone] Ramiro Wong MD [address] [facility] [place] [address] 08/08/2024 11:00 AM EDT Office Visit Hematology/Oncology [facility] [address] [place] [phone] Yosvany Moe MD [address] [facility] [place] [address] 09/05/2024 8:30 AM EDT Cardiac Studies Cardiac Studies, [facility] [address] [facility] [place] [address] Scheduled Procedures Name Priority Associated Diagnoses Date/Ti [...] Comments DISCUSS TOBACCO CESSATION (REFER TO SMARTSET #1364) 1952 Alpha-1 Antitrypsin 1970 Hepatitis C Screening [...] Advance Directives occurred with: Patient Care Teams Sap Analyst Relationship Specialty Start Date End Date Adriel Whitaker MD PCP - General Family Medicine 10/20/17 documented as of this encounter
--- OUTSIDE RECORDS SUMMARY | 2024-07-03 11:59 | External Medical Summary | Summary of Care ---
Author Name Unknown Organization [facility] Address [address] [place] [address] Phone [phone] Care Team Providers Care School Bus Mechanic Name Role Phone Adriel Whitaker MD Primary Care Provider [phone] Reason for Visit * Reason Comments Acute Patient is here with concerns about sores on stomach, arms, and head. She states she has had them for well over a month and has used antibiotic cream on them. She states they are not itchy or painful they just get a hard scab over them and that falls off and then it becomes a sore again. Encounter Details Date Type Department Care Team (Late st Contact Info) Description 06/07/2024 8:40 AM EST Office Visit [facility] [address] [phone] Martell Roberts PA-C [address] [phone] Superficial bacterial infection of skin*; Skin picking habit; Severe anxiety with panic Allergies Active Allergy Reactions Criticality Noted Date Comments Cisapride 11/05/1998 diarrhea Doxycycline 11/05/1998 diarrhea Macrolides And Ketolides 05/17/2000 zithromax, diarrhea Salicylates 11/05/1998 intol documented as of this encounter (statuses as of 06/07/2024) Medications Acetaminophen 500 MG Oral Tablet (Tylenol) [...] Active Additional Information Patient not taking.Reported on 06/07/2024 PARoxetine HCl ER 12.5 MG Oral Tablet [...] before bedtime. 180 Tablet 3 4 Active Advanced Probiotic Oral Capsule Take 1 Capsule by mouth in the morning. Active ALPRAZolam 0.25 MG Oral Tablet (xaNAX)Indicati ons:Agoraphobia with panic disorder,Severe anxiety with panic,Controlle d substance agreement signed,Anxiety Take 1 Tablet by mouth 3 times a day as needed for Anxiety. 90 Tablet 5 Active Loratadine 10 MG Oral Tablet (Claritin) Take 1 Tablet by mouth in the morning. 30 Tablet 5 5 Active Cephalexin 500 MG Oral Capsule (Keflex)Indicat ions:Superficia l bacterial infection of skin Take 1 Capsule by mouth in the morning and 1 Capsule at noon and 1 Capsule before bedtime. Do all this for 10 days. 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 file Not on file Not on file documented as of this encounter Last Filed Vital Signs Vital Sign Reading Time Taken Comments Blood Pressure 122/76 06/07/2024 8:06 AM EST Pulse 78 06/07/2024 8:06 AM EST Temperature 36.1 C (96.9 F) 06/07/2024 8:06 AM ES T Respiratory Rate 18 06/07/2024 8:06 AM EST Oxygen Saturation - - Inhaled Oxygen Concentration - - Weight 43 kg (94 lb 12.8 oz) 06/07/2024 8:06 AM EST Height - - Body Mass Index 15.3 03/26/2024 2:39 PM EST documented in this [...] documented in this encounter Progress Notes * Martell Roberts PA-C - 06/07/2024 8:23 AM EST Images from the original note were not included. History of Present Illness Faith Chavis is a 73 year old female that presents for Acute (Patient is here with concerns aboutsores on stomach, arms, and head. She states she has had them for well over a month and has used antibiotic cream on them. She states they are not itchy or painful they just get a hard scab over themand that falls off and then it becomes a sore again. ) History of Present Illness The patient presents with persistent skin sores on the abdomen, arm, and back of the neck. The sores are not painful or itchy, but she forms a hard crust and does not heal. The patient has been applying band-aids to the sores, which has resulted in skin tears due to the adhesive. The patient admitsto picking at the sores, especially when feeling anxious. Previous treatment with topical creams and oral antibiotics (Cefalexin) provided some improvement, but the sores did not completely resolve. The patient believes she did not have enough of the antibiotic to complete the treatment. The patient has been eating and drinking normally, but has lost a few pounds recently. The patient also reports increased anxiety and fear, which may be contributing to the skin picking behavior. Medications: ALPRAZolam 0.25 MG Oral Tablet (xaNAX) Advanced Probiotic Oral Capsule Bisacodyl 5 MG Oral Tablet Delayed Release (Dulcolax) Docusate Sodium 100 MG Oral Capsule (Colace) Famotidine 20 MG Oral Tablet (Pepcid) Fluticasone Propionate 50 MCG/ACT Nasal Suspension (Flonase) Rosuvastatin Calcium 20 MG Oral Tablet (Crestor) Albuterol Sulfate HFA 108 (90 Base) MCG/ACT Inhalation Aerosol Solution Carvedilol 3.125 MG Oral Tablet (Coreg) amLODIPine Besylate 5 MG Oral Tablet (Norvasc) traZODone HCl 100 MG Oral Tablet (Desyrel) PARoxetine HCl ER 12.5 MG Oral Tablet Extended Release 24 Hour (Paxil CR) Aspirin 81 MG Oral Tablet Chewable Acetaminophen 500 MG Oral Tablet (Tylenol) Pantoprazole Sodium 40 MG Oral Tablet Delayed Release (Protonix) Physical Exam Vitals: 06/07/24 0806 Temp: 96.9 F (36.1 C) Pulse: 78 Resp: 18 BP: 122/76 Wt Readings from Last 5 Encounters: 06/07/24 94 lb 12.8 oz (43 kg) 04/18/24 98 lb 4.8 oz (44.6 kg) 04/03/24 97 lb 12.8 oz (44.4 kg) 03/26/24 99 lb 3.2 oz (45 kg) 03/07/24 96 lb 14.4 oz (44 kg) Physical Exam Vitals and nursing note reviewed. Constitutional: General: She is not in acute distress. Comments: Patient sitting in exam room rubbing crown of head where sore is noted. HENT: Head: Normocephalic and atraumatic. Skin: Comments: Multiple adhesive bandaids on right forearm resulting in skin tears. Superficial excoriated open sores on abdomen, posterior neck, crown of head. Few areas with surrounding mild edema/inflammation and erythema. No purulence. Neurological: Mental Status: She is alert and oriented to person, place, and time. Assessment and Plan Assessment & Plan Chronic Skin Lesions Non-pruritic, non-painful skin lesions on the abdomen and neck. Partial response to previous Cefalexin. Likely exacerbated by patient's anxiety and skin picking. -Prescribe Cefalexin (Keflex) for another course. -Advise patient to avoid picking at lesions and to keep them clean with soap and water. -Prescribe daily Claritin to potentially reduce skin picking. Skin Tear Recent skin tear on the arm due to removal of adhesive bandage. -Advise to use gauze instead of adhesive bandages due to thin skin. -Nurse to clean and dress wound with gauze. Anxiety Patient reports increased anxiety and fear, potentially contributing to skin picking. -Recommend continued follow-up with PCP for further management of anxiety and overall health maintenance. Superficial bacterial infection of skin (Primary) - Cephalexin 500 MG Oral Capsule (Keflex); Take 1 Capsule by mouth in the morning and 1 Capsule atnoon and 1 Capsule before bedtime. Do all this for 10 days. Skin picking habit - Loratadine 10 MG Oral Tablet (Claritin); Take 1 Tablet by mouth in the morning. Severe anxiety with panic Wrap-Up Follow-up: Return if symptoms worsen or fail to improve. | Check-out note: Schedule routine f/u with Dr. Whitaker within 3 months. Time: I spent a total of 20-29 minutes (exact time 25 mins) on the date of service in preparation, delivery, and documentation of the care provided to Faith Chavis excluding any time spent in the performance of separately billed services. documented in this encounter Nursing Notes * Yudelka Graves LPN - 06/07/2024 8:05 AM EST The patient has been properly identified by confirmation of name and date of . Chief Complaint Patient presents with Acute Patient is here with concerns about sores on stomach, arms, and head. She states she has had them for well over a month and has used antibiotic cream on them. She states they are not itchy or painfulthey just get a hard scab over them and that falls off and then it becomes a sore again. documented in this encounter Plan of Treatment Upcoming Encounters Date Type Department Care Team (Late st Contact Info) Description 08/08/2024 11:00 AM EDT Office Visit [facility] [address] [facility] [place] [phone] Yosvany Moe MD [address] [place] [address] 09/05/2024 8:30 AM EDT Cardiac Studies Cardiac Studies, [facility] [address] [place] [address] 09/07/2024 1:00 PM EDT Office Visit Family Practice, Andreina Cali [address] [place] [phone] Adriel Whitaker MD [address] [place] [id number] Scheduled Procedures Name Priority Associated Diagnoses Date/Ti [...] Comments DISCUSS TOBACCO CESSATION (REFER TO SMARTSET #[id number]) 1950 Alpha-1 Antitrypsin 1970 Hepatitis C Screening [...] as of this encounter Visit Diagnoses Diagnosis Superficial bacterial infection of skin- Primary Cellulitis and abscess of unspecified site Skin picking habit Other and unspecified special symptom or syndrome, not elsewhere classified Severe anxiety with panic documented in this encounter Advance Directives * Full Code (Latest Code Status on File) Date Activated Date Inactivated Comments 11/08/2022 11:27 AM 11/11/2022 4:51 PM Question Answer Comments Discussion of Advance Directives occurred with: Patient Care Teams School Bus Mechanic Relationship Specialty Start Date End Date Adriel Whitaker MD [address] [address] PCP - General Family Medicine 10/20/17 documented as of this encounter"
[2024-07-03 12:53] LABS: Adenovirus PCR Not Detected (NotDetected); Bordetella parapertussis PCR Not Detected (NotDetected); Bordetella pertussis PCR Not Detected (NotDetected); Chlamydia pneumoniae PCR Not Detected (NotDetected); Coronavirus 229E PCR Not Detected (NotDetected); Coronavirus CoV-2 (COVID19)PCR Not Detected (NotDetected); Coronavirus HKU1 PCR Not Detected (NotDetected); Coronavirus NL63 PCR Not Detected (NotDetected); Coronavirus OC43PCR Not Detected (NotDetected); Human Metapneumovirus PCR Not Detected (NotDetected); Influenza A PCR Not Detected (NotDetected); Influenza B PCR Not Detected (NotDetected); Mycoplasma pneumoniae PCR Not Detected (NotDetected); Parainfluenza Virus 1 PCR Not Detected (NotDetected); Parainfluenza Virus 2 PCR Not Detected (NotDetected); Parainfluenza Virus 3 PCR Not Detected (NotDetected); Parainfluenza Virus 4 PCR Not Detected (NotDetected); Respiratory Syncytial VirusPCR Not Detected (NotDetected); Rhinovirus/Enterovirus PCR Not Detected (NotDetected)
[2024-07-03] MEDS: DEXTROSE 50% 50 ML SYRINGE IV ONE (13:00)
--- NOTE | 2024-07-03 13:45 | History & Physical Report ---
<Statement entered by Brian Mills DO - 07/03/24 17:26> I have seen and examined the patient and have discussed the case with the advance practice provider. I have reviewed the advanced practitioner's documentation, and I agree with, and take responsibility for that plan of care. Patient seen up on the medical floor. She confirms that she ate her full lunch. However, she states that that is very rare for her. She reports early satiety and general anorexia. Does admit to some left upper quadrant tenderness. Agree with GI consultation Further plan of care as outlined below I spent a total of 14 minutes coordinating, documenting, and providing care for this patient excluding time spent by another provider/Q. Date of Service July 03, 2024 Assessment & Plan (1) Acute dehydration: (2) AAA (abdominal aortic aneurysm): (3) Weakness: (4) Syncope: (5) Hypertensive crisis: (6) Anxiety: (7) GERD (gastroesophageal reflux disease): (8) Dyslipidemia: (9) COPD (chronic obstructive pulmonary disease): Plan Assessment and plan: Failure to thrive Weight loss Hypoglycemia -Check A1c - consult nutrition - A/P CT without acute findings Consult GI to consider scope, had workup done in 2022 Encourage oral intake; follow up blood work. Hypertensive urgency Hx chronic left ICA occlusion Hx of hypertrophic cardiomyopathy: Declined surgical intervention for occlusion, continue aspir in/carvedilol/amlodipine Hx COPD: -managed on albuterol as needed, not in acute exacerbation Hx HLD: Continue statin Hx anxiety: -Continue paroxetine/Xanax A total of 60 minutes was spent on chart review/facilitating plan of care/reviewing diagnostic data/discussion with consultants Full code DVT prophylaxis: Heparin subcu History of Present Illness Chief Complaint: Weakness, weight loss, nausea/vomiting Primary Care Provider: Adriel Whitaker MD The patient is a 73-year-old female with a past medical history of HTN, HLD, anxiety, depression, GERD, COPD, AAA who presents to the ED on 07/03/2024 with complaints of generalized weakness, altered mental status and nausea/vomiting over the past 2 months. Patient reports losing about 20-40 pounds over the past 2 months with poor oral intake. Patient does have a history of colon CA with hemicolectomy in October 2022. Patient reports that these issues have been going on for over 2 years intermittently. Reports intermittent abdominal pain and poor appetite. Denies any diarrhea. Denies any actual vomiting but reports consistent nausea. Denies any chest pain or shortness of breath. Denies any respiratory symptoms. Patient also reports intermittent confusion and feeling dizzy and weak that started over the past week. Patient was admitted and 04/27/2024 with syncopal events, chronic left ICA occlusion, found to have hypertrophic cardiomyopathy and acute sigmoid diverticulitis at that time. On arrival to the ED, labs are remarkable for CO2 34, BUN 25, glucose 63, BioFire is negative Chest x-ray is negative Abdomen/pelvis CT is unremarkable The patient will be admitted for failure to thrive and weakness. Allergies Allergy/AdvReac Type Severity Reaction Status Date / Time amoxicillin [From Augmentin] AdvReac Intermediate ABD Verified 05/07/24 09:05 PAIN/VOMITING azithromycin [From Zithromax] AdvReac Intermediate Diarrhea Verified 05/07/24 09:05 clavulanic acid AdvReac Intermediate ABD Verified 05/07/24 09:05 [From Augmentin] PAIN/VOMITING doxycycline AdvReac Intermediate Diarrhea Verified 05/07/24 09:05 Macrolide Antibiotics AdvReac Intermediate Diarrhea Verified 05/07/24 09:05 salicylates AdvReac Intermediate INTOLERANCE Verified 05/07/24 09:05 Tetracyclines AdvReac Intermediate Diarrhea Verified 05/07/24 09:05 Home Medications Medication Instructions Recorded Confirmed Type albuterol sulfate 90 mcg/actuation 2 puff inhalation Q6H PRN 08/23/22 07/03/24 History aerosol inhaler Shortness Of Breath Or Wheezing alprazolam 0.25 mg tablet 0.25 mg PO TID PRN anxiety 05/02/23 07/03/24 History paroxetine HCl 12.5 mg 12.5 mg PO QAM 05/02/23 07/03/24 History tablet,extended release 24 hr trazodone 100 mg tablet 100 mg PO HS 05/02/23 07/03/24 History amlodipine 5 mg tablet 5 mg PO QAM 07/07/23 07/03/24 History aspirin 81 mg chewable tablet 81 mg PO QAM 09/21/23 07/03/24 History carvedilol 3.125 mg tablet 3.125 mg PO BID 09/21/23 07/03/24 History docusate sodium 100 mg capsule 100 mg PO BID PRN Constipation #30 02/25/24 07/03/24 Rx caps fluticasone propionate 50 2 spray NA DAILY PRN Nasal 02/25/24 07/03/24 Rx mcg/actuation nasal congestion #16 grams spray,suspension nicotine 7 mg/24 hr daily 1 patch transdermal QAM #28 ea 05/04/24 07/03/24 Rx transdermal patch rosuvastatin 20 mg tablet 20 mg PO QAM #30 tabs 05/04/24 07/03/24 Rx loratadine 10 mg tablet 10 mg PO QAM 07/03/24 07/03/24 History Past Med/Surg History Problem List (Updated 06/04/24 @ 00:06 by Delfina Briceno) Episode of unresponsiveness Occlusion of left internal carotid artery Carotid artery disease Dyslipidemia, goal LDL below 70 Hypertrophic cardiomyopathy Syncope and collapse (Acute) Generalized weakness (Acute) Diverticulitis (Acute) Sigmoid diverticulitis Generalized weakness (Acute) Arthralgia COVID-19 (Acute) Generalized weakness JEANA (acute kidney injury) (Acute) Syncope (Acute) Acute dehydration (Acute) Weakness (Acute) Hypertensive crisis (Acute) Hyponatremia (Acute) Hypokalemia (Acute) Hypertension Recurrent falls (Acute) Anxiety GERD (gastroesophageal reflux disease) Dyslipidemia COPD (chronic obstructive pulmonary disease) (Acute) Medical History Acute dehydration Weakness AAA (abdominal aortic aneurysm) Surgical History S/P tubal ligation Family History Other Diabetes Social History Smoking Status: Current every day smoker Tobacco Type: Cigarettes packs per day: 0.5; Cigarettes Per Day: 5; Second Hand Exposure: Yes; Do You Dip or Chew Tobacco: No; Hx Alcohol Use: No Hx Substance Use: No Preferred Language: Yakut Communication Ability: Effective Manager Enrollment Required: No Beliefs That Will Affect Care: None Current Living Situation: Spouse Current Living Situation Comment: Fernando Feels Safe at Home: Yes Assistive Devices: None Review of Systems Review of Systems: All systems reviewed & are unremarkable except as noted in HPI & below Physical Exam Constitutional: + ill appearing, + thin and + cachectic; + not well developed and + not well nourished Eyes: PERRL, conjunctivae normal, anicteric sclerae ENMT: external ear and nose normal, oropharynx normal Neck: trachea midline, no thyromegaly Respiratory: normal respiratory effort, lungs clear to auscultation Cardiovascular: RRR, no murmur, no edema Gastrointestinal (Abdomen): normal bowel sounds, soft, nontender, no hepatosplenomegaly Musculoskeletal: no cyanosis or clubbing, extremities motor strength 5/5 Skin: no rashes, warm and dry Neurologic: PERRL, EOMI, accommodation nl, no face palsy, no dysarthria Psychiatric: A+Ox3, euthymic affect Lymphatic: no cervical or axillary lymphadenopathy Results & Data Results & Data Vital Signs (Past 12 Hours) Vital Signs Temp Pulse Resp BP Pulse Ox O2 Del Method 07/03/24 11:30 68 16 186/100 H 97 07/03/24 11:09 68 29 H 186/97 H 98 07/03/24 11:00 68 16 97 Room Air 07/03/24 10:00 67 07/03/24 09:13 36 C L 77 18 153/92 H 98 Room Air Diagnostic Findings Laboratory Results WBC 5.67 K/ul (4.8-10.8) 07/03/24 09:25 RBC 4.04 M/uL (4.20-5.40) L 07/03/24 09:25 Hgb 12.4 g/dl (12.0-16.0) 07/03/24 09:25 Hct 37.4 % (37.0-47.0) 07/03/24 09:25 MCV 92.6 fL (80.0-100.0) 07/03/24 09:25 MCH 30.7 pg (25.0-34.0) 07/03/24 09:25 MCHC 33.2 g/dL (32.0-36.0) 07/03/24 09:25 RDW Std Deviation 41.7 fL (36.4-46.3) 07/03/24 09:25 RDW Coeff of Yamile 12.2 % (11.5-14.5) 07/03/24 09:25 Plt Count 142 K/uL (130-400) 07/03/24 09:25 MPV 10.5 fL (9.4-12.4) 07/03/24 09:25 Immature Gran % (Auto) 0.2 % 07/03/24 09:25 Neut % (Auto) 64.9 % 07/03/24 09:25 Lymph % (Auto) 24.9 % 07/03/24 09:25 Webb % (Auto) 7.9 % 07/03/24 09:25 Eos % (Auto) 1.4 % 07/03/24 09:25 Baso % (Auto) 0.7 % 07/03/24:25 Neut # (Auto) 3.68 K/uL (1.40-6.50) 07/03/24 09:25 Lymph # (Auto) 1.41 K/uL (1.20-3.40) 07/03/24 09:25 Webb # (Auto) 0.45 K/uL (0.11-0.59) 07/03/24:25 Eos # (Auto) 0.08 K/uL (0.00-0.50) 07/03/24 09:25 Baso # (Auto) 0.04 K/uL (0.00-0.20) 07/03/24 09:25 Immature Gran # (Auto) 0.01 K/uL (0.01-0.20) 07/03/24 09:25 PT 11.1 Seconds (9.0-12.0) 07/03/24 09:25 INR 1.0 (0.9-1.1) 07/03/24 09:25 APTT 25 Seconds (21-31) 07/03/24 09:25 PTT Ratio 0.9 07/03/24 09:25 Sodium 139 mmol/L (136-145) 07/03/24 09:25 Potassium 3.9 mmol/L (3.5-5.1) 07/03/24 09:25 Chloride 102 mmol/L (98-107) 07/03/24 09:25 Carbon Dioxide 34 mmol/L (21-32) H 07/03/24 09:25 Anion Gap 3 (3-11) 07/03/24 09:25 BUN 25 mg/dl (6-23) H 07/03/24 09:25 Creatinine 0.96 mg/dl (0.6-1.2) 07/03/24 09:25 Est Cr Clr Drug Dosing 35.9 ml/min 07/03/24 09:25 eGFR 63.25 07/03/24 09:25 BUN/Creatinine Ratio 26.0 (10-20) H 07/03/24 09:25 Glucose 90 mg/dl (70-99(Fasting)) 07/03/24 09:25 POC Glucose 63 mg/dl (70-99) L* 07/03/24 12:36 Calcium 9.5 mg/dl (8.6-10.3) 07/03/24 09:25 Total Bilirubin 0.5 mg/dl (0.2-1.0) 07/03/24 09:25 AST 20 U/L (13-39) 07/03/24:25 ALT 25 U/L (7-52) 07/03/24 09:25 Alkaline Phosphatase 47 U/L (34-104) 07/03/24 09:25 Troponin I High Sens 7.0 pg/ml (0-14) 07/03/24 09:25 Total Protein 6.6 gm/dl (6.0-8.3) 07/03/24 09:25 Albumin 4.2 gm/dl (3.4-5.0) 07/03/24 09:25 Globulin 2.4 gm/dl (2.5-4.0) L 07/03/24 09:25 Albumin/Globulin Ratio 1.8 (0.9-2) 07/03/24 09:25 Lipase 56 U/L (11-82) 07/03/24 09:25 Adenovirus (PCR) Not Detected (NotDetected) 07/03/24 11:47 B. pertussis DNA (PCR) Not Detected (NotDetected) 07/03/24 11:47 B.parapertussis DNA PCR Not Detected (NotDetected) 07/03/24 11:47 C. pneumoniae DNA (PCR) Not Detected (NotDetected) 07/03/24 11:47 Coronavirus OC43 (PCR) Not Detected (NotDetected) 07/03/24 11:47 Coronavirus HKU1 (PCR) Not Detected (NotDetected) 07/03/24 11:47 Coronavirus 229E (PCR) Not Detected (NotDetected) 07/03/24 11:47 SARS-CoV-2 (PCR) Not Detected (NotDetected) 07/03/24 11:47 Coronavirus NL63 (PCR) Not Detected (NotDetected) 07/03/24 11:47 Human Metapneumovir PCR Not Detected (NotDetected) 07/03/24 11:47 Influenza Type A (PCR) Not Detected (NotDetected) 07/03/24 11:47 Influenza Type B (PCR) Not Detected (NotDetected) 07/03/24 11:47 M. pneumoniae (PCR) Not Detected (NotDetected) 07/03/24 11:47 Parainfluenza 1 (PCR) Not Detected (NotDetected) 07/03/24 11:47 Parainfluenza 2 (PCR) Not Detected (NotDetected) 07/03/24 11:47 Parainfluenza 3 (PCR) Not Detected (NotDetected) 07/03/24 11:47 Parainfluenza 4 (PCR) Not Detected (NotDetected) 07/03/24 11:47 RSV (PCR) Not Detected (NotDetected) 07/03/24 11:47 Entero/Rhino (PCR) Not Detected (NotDetected) 07/03/24 11:47 Impressions Chest X-Ray 07/03/24 09:17 XR chest 1V portable CLINICAL HISTORY: Chest pain, nonspecific COMPARISON STUDY: 04/30/2024 FINDINGS: Heart size and pulmonary vasculature are normal. No effusion, consolidation, or pneumothorax. IMPRESSION: No acute findings. ACT 112: Negative or not required by law. Electronically signed by: Jimbo Rojo M.D. 07/03/2024 9:39 AM Abdomen/Pelvis CT 07/03/24 10:[address] WITH IV CONTRAST CT DOSE: 324. mGy.cm HISTORY: Recent colon resection, 40lb loss, abd pain, n/v TECHNIQUE: Multiaxial CT images of the abdomen and pelvis were performed following the IV administration of 90 cc of Optiray, A dose lowering technique was utilized adhering to the principles of ALARA. COMPARISON STUDY: 09/21/2023 FINDINGS: ABDOMEN: There are a few tiny liver cysts, stable. Gallbladder is contracted. Spleen, pancreas, and adrenal glands are unremarkable. Kidneys show no hydronephrosis. There are a few tiny kidney cysts. There are scattered atherosclerotic calcifications. Stable mild lobulation of the distal abdominal aorta measuring 2.5 cm greatest AP dimension. Pelvis: Uterus is either very diminutive or absent. No adnexal mass seen. Urinary bladder is nondistended. Stable right hemicolectomy. There is sigmoid diverticulosis. No acute diverticulitis. No bowel inflammation or obstruction. No free fluid, free air, or abscess. No enlarged adenopathy. Osseous structures: There is stable mild height loss at the L5 vertebral body. Stable mild lumbar degenerative changes. IMPRESSION: No acute findings. ACT 112: Negative or not required by law. The above report was generated using voice recognition software. It may contain grammatical, syntax or spelling errors. Electronically signed by: Jimbo Rojo M.D. 07/03/2024 11:15 AM (4) Syncope Syncope type: unspecified Qualified Code(s): R55 - Syncope and collapse (9) COPD (chronic obstructive pulmonary disease) COPD type: COPD with acute exacerbation Qualified Code(s): J44.1 - Chronic obstructive pulmonary disease with (acute) exacerbation
[2024-07-03 14:10] LABS: Appearance Urine Clear (Clear); Bilirubin Urine Negative (Negative); Blood Urine Negative (Negative); Color Urine Yellow; Glucose Urine UA 2+ (Negative); Ketones Urine Negative (Negative); Leukocyte Esterase Urine Negative (Negative); Nitrite Urine Negative (Negative); Protein Urine Negative (Negative); Specific Gravity Urine 1.014 (1.000-1.030); Urobilinogen Urine Negative (Negative); pH Urine 8.5 (4.5-7.5)
[2024-07-03] MEDS: ACETAMINOPHEN 325 MG TAB PO PRN (16:01)
[2024-07-03] MEDS: ALPRAZolam 0.25 MG TABLET PO PRN (16:02)
--- NOTE | 2024-07-03 16:05 | Electrocardiogram Report ---
Test Reason : Blood Pressure : */* mmHG Vent. Rate : 75 BPM Atrial Rate : 75 BPM P-R Int : 148 ms QRS Dur : 74 ms QT Int : 396 ms P-R-T Axes : 92 40 76 degrees QTcB Int : 442 ms Normal sinus rhythm Biatrial enlargement Minimal voltage criteria for LVH, may be normal variant Septal infarct , age undetermined Abnormal ECG When compared with ECG of 30-Apr-2024 10:22, Septal infarct is now Present ST now depressed in Inferior leads Nonspecific T wave abnormality, improved in Lateral leads Confirmed by Bandar May ([id number]) on 07/03/2024 4:05:20 PM Referred By: Confirmed By: Bandar May
[2024-07-03] MEDS: LACTATED RINGER'S 1,000 ML IV SCH (16:19)
[2024-07-03] MEDS: traZODone HCL 100 MG TAB PO SCH (20:17)
[2024-07-03] MEDS: carvediloL 3.125 MG TAB PO SCH (20:17)
[2024-07-04 06:50] LABS: Basophils # (auto) 0.04 K/uL (0.00-0.20); Basophils % (auto) 0.8 %; Eosinophils # (auto) 0.14 K/uL (0.00-0.50); Eosinophils % (auto) 2.6 %; Hematocrit (blood only) 35.3 % (37.0-47.0); Hemoglobin 11.9 g/dl (12.0-16.0); Immature Granulocytes # (auto) 0.01 K/uL (0.01-0.20); Immature Granulocytes % (auto) 0.2 %; Lymphocytes # (auto) 1.44 K/uL (1.20-3.40); Lymphocytes % (auto) 27.2 %; Mean Corpuscular Hemoglobin 30.6 pg (25.0-34.0); Mean Corpuscular Hgb Conc 33.7 g/dL (32.0-36.0); Mean Corpuscular Volume 90.7 fL (80.0-100.0); Mean Platelet Volume 10.8 fL (9.4-12.4); Monocytes % (auto) 9.5 %; Neutrophils # (auto) 3.16 K/uL (1.40-6.50); Neutrophils % (auto) 59.7 %; Platelet Count 120 K/uL (130-400); RDW Coefficient of Variation 12.2 % (11.5-14.5); RDW Standard Deviation 40.2 fL (36.4-46.3); Red Blood Count 3.89 M/uL (4.20-5.40); White Blood Count 5.29 K/ul (4.8-10.8)
[2024-07-04 07:11] LABS: Albumin Globulin Ratio 1.4 (0.9-2); Albumin Level 3.6 gm/dl (3.4-5.0); BUN Creatinine Ratio 23.7 (10-20); Bilirubin,Total 0.4 mg/dl (0.2-1.0); Calcium 8.2 mg/dl (8.6-10.3); Creatinine Clr Calc Pharmacy 37.5 ml/min; Globulin 2.5 gm/dl (2.5-4.0); Phosphorus 3.6 mg/dl (2.5-4.9); Potassium 3.6 mmol/L (3.5-5.1); Total Protein 6.1 gm/dl (6.0-8.3)
--- NOTE | 2024-07-04 09:44 | Gastrointestinal Consultation ---
Date of Consultation July 04, 2024 Assessment & Plan (1) Abnormal weight loss: (2) Poor appetite: (3) Epigastric pain: Plan Patient is a 73 year old female who was admitted for weakness and abnormal weight loss over the past few months. she endorses a poor appetite. Epigastric tenderness is present on examination today. she is agreeable to testing to further evaluate. Case was discussed with Dr. Avila. - Keep NPO - set up EGD for today to further evaluate. Supervising Physician Co-Signing Physician Notes Weight loss decreased appetite. Epigastric discomfort. She states the epigastric discomfort can be improved with eating, patient smokes. Denies use of frequent NSAIDs. Acetaminophen. Has a palpable aortic bruit. Has a high- pitched systolic murmur at the apex to the aortic area consistent with aortic stenosis. No obvious masses within the abdomen itself. Very thin scaphoid abdominal wall. EGD to evaluate for gastric outlet obstruction peptic ulcer disease gastric neoplasia. If normal upper endoscopy with her abdominal aortic bruit and smoking history Dopplers of the mesenteric arteries. Risk and benefits of EGD explained to the patient informed consent obtained History of Present Illness Reason for Consultation: poor oral intake, nausea, weight loss Requesting Physician: Brett LÓPEZ Attending Physician: Gretchen Mccartney MD History of Present Illness Patient is a 73 year old female with a past medical history of HTN, HLD, anxiety, depression, GERD, COPD, AAA who presented to the ED on 07/03/2024 with complaints of generalized weakness, altered mental status, and 20-40 lb weight loss over the past 2 months. Patient does have a history of colon CA with hemicolectomy in October 2022. She follows with [facility] as an outpatient on this. She denies any nausea or vomiting, but rather, tells me she just does not feel like eating. she does report epigastric pain that has been ongoing. she feels bowels are unchanged and she denies any black stools or melena. 07/04/24 hgb 11.9, hct 35.3, wbc 5.29, platelets 120. 07/03/24 CT AP No acute findings. Allergies Allergy/AdvReac Type Severity Reaction Status Date / Time amoxicillin [From Augmentin] AdvReac Intermediate ABD Verified 07/04/24 11:40 PAIN/VOMITING azithromycin [From Zithromax] AdvReac Intermediate Diarrhea Verified 07/04/24 11:40 clavulanic acid AdvReac Intermediate ABD Verified 07/04/24 11:40 [From Augmentin] PAIN/VOMITING doxycycline AdvReac Intermediate Diarrhea Verified 07/04/24 11:40 Macrolide Antibiotics AdvReac Intermediate Diarrhea Verified 07/04/24 11:40 salicylates AdvReac Intermediate INTOLERANCE Verified 07/04/24 11:40 Tetracyclines AdvReac Intermediate Diarrhea Verified 07/04/24 11:40 Home Medications Medication Instructions Recorded Confirmed Type albuterol sulfate 90 mcg/actuation 2 puff inhalation Q6H PRN 08/23/22 07/03/24 History aerosol inhaler Shortness Of Breath Or Wheezing alprazolam 0.25 mg tablet 0.25 mg PO TID PRN anxiety 05/02/23 07/03/24 History paroxetine HCl 12.5 mg 12.5 mg PO QAM 05/02/23 07/03/24 History tablet,extended release 24 hr trazodone 100 mg tablet 100 mg PO HS 05/02/23 07/03/24 History amlodipine 5 mg tablet 5 mg PO QAM 07/07/23 07/03/24 History aspirin 81 mg chewable tablet 81 mg PO QAM 09/21/23 07/03/24 History carvedilol 3.125 mg tablet 3.125 mg PO BID 09/21/23 07/03/24 History docusate sodium 100 mg capsule 100 mg PO BID PRN Constipation #30 02/25/24 07/03/24 Rx caps fluticasone propionate 50 2 spray NA DAILY PRN Nasal 02/25/24 07/03/24 Rx mcg/actuation nasal congestion #16 grams spray,suspension nicotine 7 mg/24 hr daily 1 patch transdermal QAM #28 ea 05/04/24 07/03/24 Rx transdermal patch rosuvastatin 20 mg tablet 20 mg PO QAM #30 tabs 05/04/24 07/03/24 Rx loratadine 10 mg tablet 10 mg PO QAM 07/03/24 07/03/24 History Patient History Medical History Acute dehydration Weakness AAA (abdominal aortic aneurysm) Surgical History S/P tubal ligation Family History Other Diabetes Social History Smoking Status: Current every day smoker Tobacco Type: Cigarettes packs per day: 0.5; Cigarettes Per Day: 5; Second Hand Exposure: Yes; Do You Dip or Chew Tobacco: No; Hx Alcohol Use: No Hx Substance Use: No Preferred Language: Citizen Of [place] Communication Ability: Effective Deaf/Hard Of Hearing Specialist Required: No Beliefs That Will Affect Care: None Current Living Situation: Spouse Current Living Situation Comment: [place] Other Information That Helps Us Care for You: No Feels Safe at Home: Yes Safety Concerns: Feels Safe At This Time Assistive Devices: None Review of Systems Review of Systems: All systems reviewed & are unremarkable except as noted in HPI & below Physical Exam Physical Exam: thin appearing Respiratory: normal respiratory effort, lungs clear to auscultation Cardiovascular: Rate/Rhythm: regular rate and regular rhythm Gastrointestinal (Abdomen): epigastric tenderness to palpation, no guarding, soft, normal bowel sounds. Psychiatric: Orientation: alert and oriented x 3 Affect: euthymic affect Results & Data Vital Signs (Past 12 Hours) Vital Signs Temp Pulse Pulse Resp BP Pulse Ox O2 Del Method 07/04/24 03:19 99.0 F 69 18 167/81 H 95 Room Air 07/03/24 23:12 98.4 F 64 18 148/73 H 96 Room Air 07/03/24 21:44 60 Coding Level of Care Code 38332 INT INP/OBS CARE 2/55MIN Diagnoses Abnormal weight loss R63.4 Poor appetite R63.0 Epigastric pain R10.13
[2024-07-04] MEDS: ASPIRIN 81 MG ECTAB PO SCH (09:45)
[2024-07-04] MEDS: amLODIPine BESYLATE 5 MG TAB PO SCH (09:45)
[2024-07-04] MEDS: LORATADINE 10 MG TAB PO SCH (09:46)
[2024-07-04] MEDS: ROSUVASTATIN CALCIUM 20 MG TAB PO SCH (09:46)
[2024-07-04] MEDS: PARoxetine HCl CONTROLLED REL 12.5 MG TABCR PO SCH (09:46)
[2024-07-04 11:07] LABS: Estimated Average Glucose 103 mg/dl; Hemoglobin A1C 5.2 % (4.5-5.6)
--- NOTE | 2024-07-04 12:01 | Anesthesiology Consultation ---
Date of Service July 04, 2024 Assessment & Plan Chart Review Chart Review: Acceptable Risk for Surgery and Patient NOT seen in Pre Admission Testing Consults Requested none ASA ASA4 Proposed Anesthesia Anesthesia Type: MAC History Surgery Operation Date: 07/04/24 16:45 Proposed Procedures p Esophagogastroduodenoscopy Dr. Austin Avila MD Height/Weight Height: 5 ft 6 in Weight: 42.8 kg Allergies Allergy/AdvReac Type Severity Reaction Status Date / Time amoxicillin [From Augmentin] AdvReac Intermediate ABD Verified 07/04/24 11:40 PAIN/VOMITING azithromycin [From Zithromax] AdvReac Intermediate Diarrhea Verified 07/04/24 11:40 clavulanic acid AdvReac Intermediate ABD Verified 07/04/24 11:40 [From Augmentin] PAIN/VOMITING doxycycline AdvReac Intermediate Diarrhea Verified 07/04/24 11:40 Macrolide Antibiotics AdvReac Intermediate Diarrhea Verified 07/04/24 11:40 salicylates AdvReac Intermediate INTOLERANCE Verified 07/04/24 11:40 Tetracyclines AdvReac Intermediate Diarrhea Verified 07/04/24 11:40 Medications Home Medications Medication Instructions Recorded Confirmed Last Taken albuterol sulfate 90 mcg/actuation 2 puff inhalation Q6H PRN 08/23/22 07/03/24 08/22/22 aerosol inhaler Shortness Of Breath Or Wheezing alprazolam 0.25 mg tablet 0.25 mg PO TID PRN anxiety 05/02/23 07/03/24 Unknown paroxetine HCl 12.5 mg 12.5 mg PO QAM 05/02/23 07/03/24 02/22/24 tablet,extended release 24 hr trazodone 100 mg tablet 100 mg PO HS 05/02/23 07/03/24 02/21/24 amlodipine 5 mg tablet 5 mg PO QAM 07/07/23 07/03/24 02/22/24 aspirin 81 mg chewable tablet 81 mg PO QAM 09/21/23 07/03/24 02/22/24 carvedilol 3.125 mg tablet 3.125 mg PO BID 09/21/23 07/03/24 02/22/24 docusate sodium 100 mg capsule 100 mg PO BID PRN Constipation #30 02/25/24 07/03/24 Unknown caps fluticasone propionate 50 2 spray NA DAILY PRN Nasal 02/25/24 07/03/24 Unknown mcg/actuation nasal congestion #16 grams spray,suspension nicotine 7 mg/24 hr daily 1 patch transdermal QAM #28 ea 05/04/24 07/03/24 Unknown transdermal patch rosuvastatin 20 mg tablet 20 mg PO QAM #30 tabs 05/04/24 07/03/24 Unknown loratadine 10 mg tablet 10 mg PO QAM 07/03/24 07/03/24 Unknown Active Medications Generic Name Dose Route Start Last Admin Trade Name Freq PRN Reason Stop Dose Admin Acetaminophen 650 mg 07/03/24 13:36 07/04/24 09:46 Acetaminophen 325 Mg Tab PO 08/02/24 13:35 650 mg Q4H PRN Administration pain/fever Alprazolam 0.25 mg 07/03/24 15:42 07/04/24 04:11 Alprazolam 0.25 Mg Tablet PO 08/02/24 15:41 0.25 mg TID PRN Administration anxiety Amlodipine Besylate 5 mg 07/04/24 09:00 07/04/24 09:45 Amlodipine Besylate 5 Mg Tab PO 08/03/24 08:59 5 mg QAM KEELY Administration Aspirin 81 mg 07/04/24 09:00 07/04/24 09:45 Aspirin 81 Mg Ectab PO 08/03/24 08:59 81 mg QAM KEELY Administration Carvedilol 3.125 mg 07/03/24 21:00 07/04/24 09:45 Carvedilol 3.125 Mg Tab PO 08/02/24 20:59 3.125 mg BID KEELY Administration Lactated Ringer's 1,000 mls @ 80 mls/hr 07/03/24 16:00 07/04/24 04:04 Lr IV 07/04/24 15:59 80 mls/hr .[id number] KEELY Administration Loratadine 10 mg 07/04/24 09:00 07/04/24 09:46 Loratadine 10 Mg Tab PO 08/03/24 08:59 10 mg QAM KEELY Administration Paroxetine HCl 12.5 mg 07/04/24 09:00 07/04/24 09:46 Paroxetine Hcl Controlled Rel 12.5 Mg Tabcr PO 08/03/24 08:59 12.5 mg QAM KEELY Administration Rosuvastatin Calcium 20 mg 07/04/24 09:00 07/04/24 09:46 Rosuvastatin Calcium 20 Mg Tab PO 08/03/24 08:59 20 mg QAM KEELY Administration Trazodone HCl 100 mg 07/03/24 21:00 07/03/24 20:17 Trazodone Hcl 100 Mg Tab PO 08/02/24 20:59 100 mg HS KEELY Administration NPO Date Last Intake of Fluids: 07/03/24 Time Last Intake of Fluids: 09:45 Last Intake of Fluids Comment: sip with meds this am Date Last Intake of Solids: 07/03/24 Time Last Intake of Solids: 17:00 Last Intake of Solids Comment: supper at hospital, pork chop and potatoes. Past Medical History Medical History Acute dehydration Weakness AAA (abdominal aortic aneurysm) HOCM HTN HLD ASCVD Ao/Carotids Exercise / Class Metabolic Activity III < 4 Walking/Shop/Light housework Past Family History Family History Other Diabetes Past Surgical History Surgical History S/P tubal ligation Past Anesthesia History No Hx of Anesthesia Complications and No Family Hx of Anesthesia Complications History of PONV No Hx of PONV and No Hx of Motion Sickness Social History Smoking Status: Current every day smoker tobacco type: cigarettes Smoking cigarettes per day: 5 Do You Dip or Chew Tobacco: No Hx Alcohol Use: No Hx Substance Use: No substance use type: does not use Physical Exam Vital Signs Last Vital Signs Temp 36.8 C 07/04/24 11:43 Pulse 60 07/04/24 11:52 Resp 17 07/04/24 11:43 BP 207/105 H 07/04/24 11:52 Pulse Ox 97 07/04/24 11:43 O2 Del Method Room Air 07/04/24 11:43 Testing Laboratory Results 07/04/24 05:50 07/04/24 05:50 PT 11.1 Seconds (9.0-12.0) 07/03/24 09:25 INR 1.0 (0.9-1.1) 07/03/24 09:25 APTT 25 Seconds (21-31) 07/03/24 09:25 Hemoglobin A1c 5.2 % (4.5-5.6) 07/03/24 09:25 Urine Color Yellow 07/03/24 13:02 Urine Appearance Clear (Clear) 07/03/24 13:02 Urine pH 8.5 (4.5-7.5) H 07/03/24 13:02 Ur Specific [place] 1.014 (1.000-1.030) 07/03/24 13:02 Urine Protein Negative (Negative) 07/03/24 13:02 Urine Glucose (UA) 2+ (Negative) H 07/03/24 13:02 Urine Ketones Negative (Negative) 07/03/24 13:02 Urine Nitrite Negative (Negative) 07/03/24 13:02 Ur Leukocyte Esterase Negative (Negative) 07/03/24 13:02 Electrocardiogram Date: 07/03/24 Findings: + NSR @ (@ 75;Biatrial enlargement;LVH;? septal infarct) Echocardiogram Date: 05/01/24 EF: 65% LV Function: normal RWMA: + none Other Findings: + LVH (moderate) and + diastolic dysfunction (Grade 1) Valvular Disease: + no significant valvular disease
[2024-07-04] MEDS ORDERED: ePHEDrine sulfate 50 MG/ML AMP IV PRN (12:04)
[2024-07-04] MEDS ORDERED: ATROPINE SULFATE 0.1 MG/ML 10ML SYR IV PRN (12:04)
--- NOTE | 2024-07-04 13:01 | Communication Note ---
Date of Service: July 04, 2024 EGD Erosive gastritis. Some altered heme in the stomach. These likely reflect aspirin and smoking history. Biopsies done for H. pylori. There is also a thickened gastric fold which was biopsied. Nonspecific likely benign. There is also a 8 mm nodule plaque in the distal esophagus. Biopsy probably would be esophageal papilloma. Certainly should treat her erosive gastritis. Start a PPI. Not sure it explains her chronic abdominal pain and weight loss she has a palpable and audible abdominal aortic bruit. Lets do ultrasound and Dopplers of the mesenteric vessels.
--- NOTE | 2024-07-04 13:14 | Anesthesiology Progress Note ---
Date of Service July 04, 2024 Anesthesia Post Procedure Vital Signs Vital Signs: Temp Pulse Pulse Pulse Pulse Resp BP 07/04/24 13:03 71 16 07/04/24 11:52 60 07/04/24 11:43 36.8 C 66 17 07/04/24 11:41 37 C 63 18 07/04/24 09:43 36.5 C 65 16 07/04/24 08:00 63 07/04/24 03:19 37.2 C 69 18 07/03/24 23:12 36.9 C 64 18 07/03/24 21:44 60 07/03/24 20:15 07/03/24 19:50 36.9 C 69 20 07/03/24 16:20 07/03/24 16:20 36.7 C 16 07/03/24 15:47 36.7 C 16 07/03/24 15:31 62 07/03/24 14:00 82 22 07/03/24 13:52 68 07/03/24 13:39 68 19 07/03/24 13:37 172/121 H BP BP Pulse Ox O2 Del Method O2 Flow Rate 07/04/24 13:03 140/67 100 Oxymask 2 07/04/24 11:52 207/105 H 07/04/24 11:43 195/88 H 97 Room Air 07/04/24 11:41 139/114 H 98 Room Air 07/04/24 09:43 168/87 H 98 Room Air 07/04/24 08:00 07/04/24 03:19 167/81 H 95 Room Air 07/03/24 23:12 148/73 H 96 Room Air 07/03/24 21:44 07/03/24 20:15 Room Air 07/03/24 19:50 114/70 98 Room Air 07/03/24 16:20 Room Air 07/03/24 16:20 176/107 H 95 Room Air 07/03/24 15:47 176/107 H 95 Room Air 07/03/24 15:31 07/03/24 14:00 07/03/24 13:52 07/03/24 13:39 99 07/03/24 13:37 Pain Intensity Medial Abdomen: Pain Intensity: 5 Transfer of Care Handoff Completed per policy Notes Mental Status: alert / awake / arousable Patient Amnestic to Procedure: Yes Nausea / Vomiting: adequately controlled Pain: adequately controlled Airway Patency, RR, SpO2: stable & adequate BP & HR: stable & adequate Hydration State: stable & adequate Anesthetic Complications: no major complications apparent
--- NOTE | 2024-07-04 13:32 | GI REPORT ---
[facility] Patient: YA RIVERA : 1950 Sex at : Female Age: 73 Years Procedure: Upper GI endoscopy Date: 07/04/2024 Attending Physician: Chris Avila MD Referring MD: Gretchen Mccartney Md Indications: - Epigastric abdominal pain - Weight loss Medications: - Monitored Anesthesia Care Complications: - No immediate complications. Estimated Blood Loss: - Estimated blood loss was minimal. Procedure: - The EGD scope was introduced through the mouth and advanced to the second part of the duodenum. - The upper GI endoscopy was accomplished without difficulty. - The patient tolerated the procedure well. Findings: - A single less than 5 mm mucosal nodule was found at the gastroesophageal junction. Biopsies were taken with a cold forceps for histology. Estimated blood loss was minimal. - Hematin (altered blood/kitmyf-vqjold-rhzv material) was found in the gastric fundus and in the gastric body. - Localized thick gastric folds were found in the gastric body. Biopsies were taken with a cold forceps for histology. Estimated blood loss was minimal. - A single medium erosion was found in the prepyloric region of the stomach. Biopsies were taken with a cold forceps for histology. Estimated blood loss was minimal. - The examined duodenum was normal. Impression: - Mucosal nodule found in the esophagus. Biopsied. - Hematin (altered blood/rkymur-pupqts-jjgu material) in the gastric fundus and in the gastric body. - Thick gastric folds. Biopsied. - Erosive gastropathy. Biopsied. - Normal examined duodenum. Recommendation: - Patient does have some inflammation of the stomach. This likely reflects aspirin and her smoking history. Treat with PPI. Not clear this explains her weight loss and symptoms. Appropriate to treat. Should look at her mesenteric vessels with the audible bruit over the abdomen. Ultrasound and Dopplers ordered. Procedure Code(s): - 70986, Esophagogastroduodenoscopy, flexible, transoral; with biopsy, single or multiple Diagnosis Code(s): - R10.13, Epigastric pain - K22.89, Other specified disease of esophagus - K92.2, Gastrointestinal hemorrhage, unspecified - K29.60, Other gastritis without bleeding - K31.89, Other diseases of stomach and duodenum CPT(R) - 202 copyright [employer]. All Rights Reserved. The CPT codes, CCI edits and ICD codes generated are intended as suggestions and were generated based on input data. These codes are preliminary and upon templer head review may be revised to meet current compliance and payer requirements. The provider is responsible for the final determination of appropriate codes, and modifiers. Chris Avila MD This document has been electronically signed. Note Initiated:07/04/2024 Note Completed:07/04/2024 1:31 PM [id number]
[2024-07-04] MEDS: PHENYLEPHRINE 100MCG/ML 5ML SYR ONE (14:20)
[2024-07-04] MEDS: PROPOFOL IV EMULSION 10 MG/ML 20 ML VIAL IV ONE (14:20)
[2024-07-04] MEDS: LIDOCAINE 2% 2 ML VIAL/AMP(20MG/ML) INFIL ONE (14:20)
--- NOTE | 2024-07-04 14:22 | Hospitalist Progress Note ---
Date of Service July 04, 2024 Assessment & Plan (1) Acute dehydration: (2) AAA (abdominal aortic aneurysm): (3) Weakness: (4) Syncope: (5) Hypertensive crisis: (6) Anxiety: (7) GERD (gastroesophageal reflux disease): (8) Dyslipidemia: (9) COPD (chronic obstructive pulmonary disease): Plan Ms. Chavis is a 73-year-old female with a past medical history of HTN, HLD, anxiety, depression, GERD, COPD, AAA who presents to the ED on 07/03/2024 with complaints of generalized weakness, altered mental status and nausea/vomiting over the past 2 months. Patient noted to have epigastric pain and underwent EGD 07/04 which revealed mucosal nodule, hematin product, thick gastric folds, and small prepyloric erosion. #Erosive gastropathy #Thick gastric folds follow up pathology from EGD Continue with PPI BID #Weight loss #Bruit on abdominal exam noted by GI follow up US/Dopplers #Hypoglycemia potentially iso poor po intake, low glycogen reserve TSH and cortisol wnl Encourage PO intake A1C 5.2% fasting insulin level ordered #Muscoal nodule s/p biopsy found on EGD 07/04, follow up surgical pathology #Hypertensive urgency #chronic left ICA occlusion #Hypertrophic cardiomyopathy: Declined surgical intervention for occlusion, continue aspirin/carvedilol/amlodipine Increase home coreg #COPD: -managed on albuterol as needed, not in acute exacerbation # HLD: Continue statin #anxiety: -Continue paroxetine/Xanax Full code DVT prophylaxis: Heparin subcu Admission and Anticipated Discharge Date Admission Date: July 03, 2024 Subjective reports of epigastric pain ongoing with intermittent appetite Denies any nausea or other concerns Physical Exam Constitutional: frail cachectic female Respiratory: normal respiratory effort, lungs clear to auscultation Cardiovascular: RRR, no murmur, no edema Gastrointestinal (Abdomen): epigastric pain on palpation Skin: scattered excoriations on abdomen with no superficial signs of infection Results & Data Results & Data Vital Signs (Past 12 Hours) Vital Signs Temp Pulse Pulse Pulse Pulse Resp BP 07/04/24 14:09 37.0 C 61 20 07/04/24 13:57 36.7 C 62 24 07/04/24 13:31 63 18 07/04/24 13:16 66 16 156/67 H 07/04/24 13:03 71 16 140/67 07/04/24 11:52 60 207/105 H 07/04/24 11:43 36.8 C 66 17 07/04/24 11:41 37 C 63 18 139/114 H 07/04/24 09:43 36.5 C 65 16 07/04/24 08:00 63 07/04/24 03:19 37.2 C 69 18 167/81 H BP Pulse Ox O2 Del Method O2 Flow Rate 07/04/24 14:09 183/93 H 97 Room Air 07/04/24 13:57 200/80 H 96 Room Air 07/04/24 13:31 213/96 H 97 Room Air 07/04/24 13:16 99 Room Air 07/04/24 13:03 100 Oxymask 2 07/04/24 11:52 07/04/24 11:43 195/88 H 97 Room Air 07/04/24 11:41 98 Room Air 07/04/24 09:43 168/87 H 98 Room Air 07/04/24 08:00 07/04/24 03:19 95 Room Air Laboratory Results Short CBC 07/04/24 Range/Units 05:50 WBC 5.29 (4.8-10.8) K/ul Hgb 11.9 L (12.0-16.0) g/dl Hct 35.3 L (37.0-47.0) % Plt Count 120 L (130-400) K/uL BMP 07/04/24 05:50 Sodium 141 Potassium 3.6 Chloride 106 Carbon Dioxide 30 BUN 22 Creatinine 0.93 Glucose 87 Calcium 8.2 L Liver Function 07/04/24 Range/Units 05:50 Total Bilirubin 0.4 (0.2-1.0) mg/dl AST 23 (13-39) U/L ALT 28 (7-52) U/L Alkaline Phosphatase 44 (34-104) U/L Albumin 3.6 (3.4-5.0) gm/dl Medications Administered Home Medications Medication Instructions Recorded Confirmed Last Taken albuterol sulfate 90 mcg/actuation 2 puff inhalation Q6H PRN 08/23/22 07/03/24 08/22/22 aerosol inhaler Shortness Of Breath Or Wheezing alprazolam 0.25 mg tablet 0.25 mg PO TID PRN anxiety 05/02/23 07/03/24 Unknown paroxetine HCl 12.5 mg 12.5 mg PO QAM 05/02/23 07/03/24 02/22/24 tablet,extended release 24 hr trazodone 100 mg tablet 100 mg PO HS 05/02/23 07/03/24 02/21/24 amlodipine 5 mg tablet 5 mg PO QAM 07/07/23 07/03/24 02/22/24 aspirin 81 mg chewable tablet 81 mg PO QAM 09/21/23 07/03/24 02/22/24 carvedilol 3.125 mg tablet 3.125 mg PO BID 09/21/23 07/03/24 02/22/24 docusate sodium 100 mg capsule 100 mg PO BID PRN Constipation #30 02/25/24 07/03/24 Unknown caps fluticasone propionate 50 2 spray NA DAILY PRN Nasal 02/25/24 07/03/24 Unknown mcg/actuation nasal congestion #16 grams spray,suspension nicotine 7 mg/24 hr daily 1 patch transdermal QAM #28 ea 05/04/24 07/03/24 Unknown transdermal patch rosuvastatin 20 mg tablet 20 mg PO QAM #30 tabs 05/04/24 07/03/24 Unknown loratadine 10 mg tablet 10 mg PO QAM 07/03/24 07/03/24 Unknown Active Medications Generic Name Dose Route Start Last Admin Trade Name Freq PRN Reason Stop Dose Admin Acetaminophen 650 mg 07/03/24 13:36 07/04/24 09:46 Acetaminophen 325 Mg Tab PO 08/02/24 13:35 650 mg Q4H PRN Administration pain/fever Alprazolam 0.25 mg 07/03/24 15:42 07/04/24 04:11 Alprazolam 0.25 Mg Tablet PO 08/02/24 15:41 0.25 mg TID PRN Administration anxiety Amlodipine Besylate 5 mg 07/04/24 09:00 07/04/24 09:45 Amlodipine Besylate 5 Mg Tab PO 08/03/24 08:59 5 mg QAM KEELY Administration Aspirin 81 mg 07/04/24 09:00 07/04/24 09:45 Aspirin 81 Mg Ectab PO 08/03/24 08:59 81 mg QAM KEELY Administration Lactated Ringer's 1,000 mls @ 80 mls/hr 07/03/24 16:00 07/04/24 04:04 Lr IV 07/04/24 15:59 80 mls/hr .[id number] KEELY Administration Loratadine 10 mg 07/04/24 09:00 07/04/24 09:46 Loratadine 10 Mg Tab PO 08/03/24 08:59 10 mg QAM KEELY Administration Paroxetine HCl 12.5 mg 07/04/24 09:00 07/04/24 09:46 Paroxetine Hcl Controlled Rel 12.5 Mg Tabcr PO 08/03/24 08:59 12.5 mg QAM KEELY Administration Rosuvastatin Calcium 20 mg 07/04/24 09:00 07/04/24 09:46 Rosuvastatin Calcium 20 Mg Tab PO 08/03/24 08:59 20 mg QAM KEELY Administration Trazodone HCl 100 mg 07/03/24 21:00 07/03/24 20:17 Trazodone Hcl 100 Mg Tab PO 08/02/24 20:59 100 mg HS KEELY Administration (4) Syncope Syncope type: unspecified Qualified Code(s): R55 - Syncope and collapse (9) COPD (chronic obstructive pulmonary disease) COPD type: COPD with acute exacerbation Qualified Code(s): J44.1 - Chronic obstructive pulmonary disease with (acute) exacerbation
[2024-07-04] MEDS: carvediloL 3.125 MG TAB PO ONE (14:33)
[2024-07-04] MEDS: LIDOCAINE 5% 1 PATCH TD STA (14:34)
--- NOTE | 2024-07-04 17:30 | Ultrasound Report ---
EXAM: US duplex mesenteric CLINICAL HISTORY: Bruit, abdominal pain. Evaluate mesenteric arteries. TECHNIQUE: Ultrasound examination of the aorta and mesenteric arteries was performed in real-time, as well as duplex. One or more of the following were performed- spectral analysis, resistive index, waveform analysis, and pulsed Doppler. COMPARISON: None. FINDINGS: Limited visualization of the inferior mesenteric artery yet patent. Vessel Flow Pattern Peak Velocity Right (cm/sec) Aorta Biphasic [place] Artery Biphasic Superior mesenteric artery - Prox Biphasic Superior mesenteric artery -Mid Biphasic Superior mesenteric artery - Distal Biphasic Inferior mesenteric artery Biphasic 79.4 cm/s Moderate atherosclerotic changes with atheromatous plaques. Aneurysmal dilatation of the proximal abdominal aorta measuring 3.34 x4cm and the distal abdominal aorta measuring 2.85 x 2.68 cm. The mid-abdominal aorta is normal in size measuring 1.84 cm. There is an echogenic noncalcified atheromatous plaque seen at the origin of the superior mesenteric artery (SMA) causing moderate narrowing/stenosis of the SMA with increased velocity. IMPRESSION: 1. Aneurysmal dilatation of the proximal and the distal abdominal aorta. 2. Significant noncalcified atheromatous plaque at the origin of the superior mesenteric artery causing moderate stenosis. 3. Moderate atherosclerotic changes of the abdominal aorta and its branches with moderate atheromatous plaques. 4. Further evaluation with CTA and follow-up is advised as clinically indicated. Electronically signed by Maria Elena Jane 07-04-2024 5:30 PM
[2024-07-04] MEDS: PANTOprazole 40 MG TAB PO SCH (20:08)
[2024-07-04] MEDS: hydrALAZINE HCL 20 MG/ML VIAL IV ONE (21:32)
[2024-07-04] MEDS: carvediloL 6.25 MG TAB PO SCH (22:43)
[2024-07-05 07:16] LABS: Hematocrit (blood only) 37.1 % (37.0-47.0); Hemoglobin 12.7 g/dl (12.0-16.0); Mean Corpuscular Hemoglobin 30.9 pg (25.0-34.0); Mean Corpuscular Hgb Conc 34.2 g/dL (32.0-36.0); Mean Corpuscular Volume 90.3 fL (80.0-100.0); Mean Platelet Volume 10.4 fL (9.4-12.4); Platelet Count 130 K/uL (130-400); RDW Coefficient of Variation 12.1 % (11.5-14.5); RDW Standard Deviation 39.8 fL (36.4-46.3); Red Blood Count 4.11 M/uL (4.20-5.40); White Blood Count 4.83 K/ul (4.8-10.8)
[2024-07-05 07:27] LABS: Albumin Globulin Ratio 1.4 (0.9-2); Albumin Level 3.9 gm/dl (3.4-5.0); BUN Creatinine Ratio 19.8 (10-20); Bilirubin,Total 0.6 mg/dl (0.2-1.0); Calcium 8.5 mg/dl (8.6-10.3); Creatinine Clr Calc Pharmacy 39.8 ml/min; Globulin 2.8 gm/dl (2.5-4.0); Phosphorus 3.5 mg/dl (2.5-4.9); Potassium 3.2 mmol/L (3.5-5.1); Total Protein 6.7 gm/dl (6.0-8.3)
[2024-07-05 07:46] LABS: Ferritin 75.6 ng/ml (8-388)
[2024-07-05 07:52] LABS: Folate (Folic Acid),Ser orPlas > 22.30 ng/ml (>5.38)
[2024-07-05 07:53] LABS: Vitamin B12 632 pg/ml (180-914)
[2024-07-05] MEDS: POTASSIUM CHLORIDE / WTR 10 MEQ/100 ML PLCT IV SCH (08:07)
[2024-07-05] MEDS: DOCUSATE SODIUM 100 MG CAP PO ONE (08:43)
[2024-07-05] MEDS: amLODIPine BESYLATE 5 MG TAB PO SCH (08:44)
[2024-07-05] MEDS: POTASSIUM CHLORIDE PWD 20 MEQ PACK PO SCH (08:44)
--- NOTE | 2024-07-05 10:24 | Hospitalist Progress Note ---
Date of Service July 05, 2024 Assessment & Plan (1) Acute dehydration: (2) AAA (abdominal aortic aneurysm): (3) Weakness: (4) Syncope: (5) Hypertensive crisis: (6) Anxiety: (7) GERD (gastroesophageal reflux disease): (8) Dyslipidemia: (9) COPD (chronic obstructive pulmonary disease): Plan Ms. Chavis is a 73-year-old female with a past medical history of HTN, HLD, anxiety, depression, GERD, COPD, AAA who presents to the ED on 07/03/2024 with complaints of generalized weakness, altered mental status and nausea/vomiting over the past 2 months. Patient noted to have epigastric pain and underwent EGD 07/04 which revealed mucosal nodule, hematin product, thick gastric folds, and small prepyloric erosion. Mesenteric US revealed plaque in SMA contributing to moderate stenosis--which potentially could be contributing to patient's symptoms. Initially apprehensive to CTA; however, agreeable this afternoon fir further investigation . #Moderate stenosis of SMA ?mesenteric ischemia contributing to chronicity of symptoms Patient agreeable to CTA for exam # Aneurysmal dilatation of the proximal and the distal abdominal aorta. proximal abdominal aorta measuring 3.34 x4cm and the distal abdominal aorta measuring 2.85 x 2.68 cm. Will need routine OP follow up #Erosive gastropathy #Thick gastric folds follow up pathology from EGD Continue with PPI BID #Weight loss #Severe protein calorie malnutrition #Bruit on abdominal exam BMI 14.9 noted by GI CTA ordered [employer] Operator consulted #Hypoglycemia potentially iso poor po intake, low glycogen reserve TSH and cortisol wnl Encourage PO intake A1C 5.2% fasting insulin level pending #Muscoal nodule s/p biopsy found on EGD 07/04, follow up surgical pathology #Hypertensive urgency #chronic left ICA occlusion #Hypertrophic cardiomyopathy: Declined surgical intervention for occlusion, continue aspirin/carvedilol/amlodipine Increase home coreg #COPD: -managed on albuterol as needed, not in acute exacerbation # HLD: Continue statin #anxiety: -Continue paroxetine/Xanax Full code DVT prophylaxis: Heparin subcu Admission and Anticipated Discharge Date Admission Date: July 03, 2024 Subjective Patient reports she wants to go home--discussed need for further imaging--reports apprehension, but discussed that OP eval would be prolonged Patient ultimately agreed endorses ongoing discomfort in epigastrium Physical Exam Constitutional: thin, cachetic woman Respiratory: normal respiratory effort, lungs clear to auscultation Cardiovascular: RRR, no murmur, no edema Gastrointestinal (Abdomen): epigastric tenderness to deep palpation Results & Data Results & Data Vital Signs (Past 12 Hours) Vital Signs Temp Pulse Pulse Pulse Resp BP BP 07/05/24 09:00 07/05/24 07:11 37.0 C 63 18 151/65 H 07/05/24 07:00 66 07/05/24 03:50 36.4 C L 76 20 163/81 H 07/05/24 00:32 171/75 H 07/05/24 00:24 37.1 C 64 18 190/93 H Pulse Ox O2 Del Method 07/05/24 09:00 Room Air 07/05/24 07:11 97 Room Air 07/05/24 07:00 07/05/24 03:50 96 Room Air 07/05/24 00:32 07/05/24 00:24 97 Room Air Laboratory Results Short CBC 07/05/24 Range/Units 06:31 WBC 4.83 (4.8-10.8) K/ul Hgb 12.7 (12.0-16.0) g/dl Hct 37.1 (37.0-47.0) % Plt Count 130 (130-400) K/uL BMP 07/05/24 06:31 Sodium 140 Potassium 3.2 L Chloride 105 Carbon Dioxide 28 BUN 17 Creatinine 0.86 Glucose 91 Calcium 8.5 L Liver Function 07/05/24 Range/Units 06:31 Total Bilirubin 0.6 (0.2-1.0) mg/dl AST 20 (13-39) U/L ALT 24 (7-52) U/L Alkaline Phosphatase 47 (34-104) U/L Albumin 3.9 (3.4-5.0) gm/dl Diagnostic Findings reviewed mesenteric US and ordered CTA Medications Administered Home Medications Medication Instructions Recorded Confirmed Last Taken albuterol sulfate 90 mcg/actuation 2 puff inhalation Q6H PRN 08/23/22 07/03/24 08/22/22 aerosol inhaler Shortness Of Breath Or Wheezing alprazolam 0.25 mg tablet 0.25 mg PO TID PRN anxiety 05/02/23 07/03/24 Unknown paroxetine HCl 12.5 mg 12.5 mg PO QAM 05/02/23 07/03/24 02/22/24 tablet,extended release 24 hr trazodone 100 mg tablet 100 mg PO HS 05/02/23 07/03/24 02/21/24 amlodipine 5 mg tablet 5 mg PO QAM 07/07/23 07/03/24 02/22/24 aspirin 81 mg chewable tablet 81 mg PO QAM 09/21/23 07/03/24 02/22/24 carvedilol 3.125 mg tablet 3.125 mg PO BID 09/21/23 07/03/24 02/22/24 docusate sodium 100 mg capsule 100 mg PO BID PRN Constipation #30 02/25/24 07/03/24 Unknown caps fluticasone propionate 50 2 spray NA DAILY PRN Nasal 02/25/24 07/03/24 Unknown mcg/actuation nasal congestion #16 grams spray,suspension nicotine 7 mg/24 hr daily 1 patch transdermal QAM #28 ea 05/04/24 07/03/24 Unknown transdermal patch rosuvastatin 20 mg tablet 20 mg PO QAM #30 tabs 05/04/24 07/03/24 Unknown loratadine 10 mg tablet 10 mg PO QAM 07/03/24 07/03/24 Unknown Active Medications Generic Name Dose Route Start Last Admin Trade Name Gilq PRN Reason Stop Dose Admin Acetaminophen 650 mg 07/03/24 13:36 07/05/24 08:43 Acetaminophen 325 Mg Tab PO 08/02/24 13:35 650 mg Q4H PRN Administration pain/fever Alprazolam 0.25 mg 07/03/24 15:42 07/05/24 03:57 Alprazolam 0.25 Mg Tablet PO 08/02/24 15:41 0.25 mg TID PRN Administration anxiety Amlodipine Besylate 10 mg 07/05/24 09:00 07/05/24 08:44 Amlodipine Besylate 5 Mg Tab PO 08/04/24 08:59 10 mg QAM KEELY Administration Aspirin 81 mg 07/04/24 09:00 07/05/24 08:02 Aspirin 81 Mg Ectab PO 08/03/24 08:59 81 mg QAM KEELY Administration Carvedilol 6.25 mg 07/04/24 21:00 07/05/24 08:03 Carvedilol 6.25 Mg Tab PO 08/03/24 20:59 6.25 mg BID KEELY Administration Loratadine 10 mg 07/04/24 09:00 07/05/24 08:02 Loratadine 10 Mg Tab PO 08/03/24 08:59 10 mg QAM KEELY Administration Miscellaneous 1 each 07/04/24 21:00 07/04/24 21:32 Remove Lidoderm Patch N/A 08/03/24 20:59 1 each DAILY@2100 KEELY Administration Pantoprazole Sodium 40 mg 07/04/24 21:00 07/05/24 08:02 Pantoprazole 40 Mg Tab PO 08/03/24 20:59 40 mg BID KEELY Administration Paroxetine HCl 12.5 mg 07/04/24 09:00 07/05/24 08:03 Paroxetine Hcl Controlled Rel 12.5 Mg Tabcr PO 08/03/24 08:59 12.5 mg QAM KEELY Administration Potassium Chloride 20 meq 07/05/24 09:00 07/05/24 08:44 Potassium Chloride Pwd 20 Meq Pack PO 08/04/24 08:59 20 meq QAM KEELY Administration Rosuvastatin Calcium 20 mg 07/04/24 09:00 07/05/24 08:02 Rosuvastatin Calcium 20 Mg Tab PO 08/03/24 08:59 20 mg QAM KEELY Administration Trazodone HCl 100 mg 07/03/24 21:00 07/04/24 20:07 Trazodone Hcl 100 Mg Tab PO 08/02/24 20:59 100 mg HS KEELY Administration (4) Syncope Syncope type: unspecified Qualified Code(s): R55 - Syncope and collapse (9) COPD (chronic obstructive pulmonary disease) COPD type: COPD with acute exacerbation Qualified Code(s): J44.1 - Chronic obstructive pulmonary disease with (acute) exacerbation
--- NOTE | 2024-07-05 10:29 | Gastroenterology Progress Note ---
Date of Service July 05, 2024 Assessment & Plan (1) Epigastric pain: (2) Poor appetite: (3) Abnormal weight loss: Plan patient still with abdominal discomfort, but feels diet is somewhat better with PPI therapy. - continue with protonix 40mg bid. she should continue with this upon discharge. - we discussed doing a CTA as recommended on US, but patient is refusing. She is aware that we do recommend this testing be done. - she tells me that she does not want further GI testing and just wishes to be discharged home. Admission and Anticipated Discharge Date Admission Date: July 03, 2024 Supervising Physician Co-Signing Physician Notes Mesenteric Doppler suggest moderate stenosis. Severe stenosis usually required for intestinal ischemia. I think a CTA is important to evaluate the significance of her stenosis. Patient initially refused see from the hospitalist note now prepared to go ahead will review that CTA once present. If there is significant SMA plus or minus celiac would benefit from vascular surgery consultation Subjective patient feels like she tolerated breakfast better today though still endorses a poor appetite. still with epigastric discomfort. no nausea, vomiting, acid reflux. 07/05/24 wbc 4.8, hgb 12.7, hct 37.1 , platelets 130. b12 632, folate > 22. Potassium 3.2, calcium 8.5, rest of CMP unremarkable. EGD 07/04/24 - Mucosal nodule found in the esophagus. Biopsied. - Hematin (altered blood/yagkvf-cuuqzs-abau material) in the gastric fundus and in the gastric body. - Thick gastric folds. Biopsied. - Erosive gastropathy. Biopsied. - Normal examined duodenum. US 07/04/24 Aneurysmal dilatation of the proximal and the distal abdominal aorta. Significant noncalcified atheromatous plaque at the origin of the superior mesenteric artery causing moderate stenosis. Moderate atherosclerotic changes of the abdominal aorta and its branches with moderate atheromatous plaques. Further evaluation with CTA and follow-up is advised as clinically indicated. Review of Systems Review of Systems: All systems reviewed & are unremarkable except as noted in HPI & below Physical Exam Physical Exam: thin appearing Respiratory: normal respiratory effort, lungs clear to auscultation Cardiovascular: Rate/Rhythm: regular rate and regular rhythm Gastrointestinal (Abdomen): epigastric tenderness. Psychiatric: Orientation: alert and oriented x 3 Results & Data Results & Data Vital Signs (Past 12 Hours) Vital Signs Temp Pulse Pulse Pulse Resp BP BP 07/05/24 09:00 07/05/24 07:11 98.6 F 63 18 151/65 H 07/05/24 07:00 66 07/05/24 03:50 97.5 F L 76 20 163/81 H 07/05/24 00:32 171/75 H 07/05/24 00:24 98.8 F 64 18 190/93 H Pulse Ox O2 Del Method 07/05/24 09:00 Room Air 07/05/24 07:11 97 Room Air 07/05/24 07:00 07/05/24 03:50 96 Room Air 07/05/24 00:32 07/05/24 00:24 97 Room Air Coding Level of Care Code 91620 SUB INP/OBS CARE 2/35MIN Diagnoses Epigastric pain R10.13 Poor appetite R63.0 Abnormal weight loss R63.4
[2024-07-05 11:02] LABS: C-Peptide 1.98 ng/mL (0.80-3.85); Insulin Total, Fasting 2.9 uIU/mL
[2024-07-05] MEDS: HYDROmorphone INJ 0.5 MG/0.5 ML SYR IV STA (12:24)
[2024-07-05] MEDS: OPTIRAY 320 125ml IV ONE (16:20)
--- NOTE | 2024-07-05 17:11 | CT Scan Report ---
EXAM: CT Angiography Abdomen With Intravenous Contrast INDICATION: Assess for mesenteric ischemia or SMA stenosis. TECHNIQUE: Axial computed tomographic angiography images of the abdomen with intravenous contrast. Sagittal and coronal reformatted images were created and reviewed. This CT exam was performed using one or more of the following dose reduction techniques: automated exposure control, adjustment of the mA and/or kV according to patient size, and/or use of iterative reconstruction technique. MIP reconstructed images were created and reviewed. CONTRAST: 119ml of Optiray 320 was administered intravenously. COMPARISON: 07/03/2024 CT abdomen FINDINGS: Aorta: Stable aortic aneurysm with thickened wall of the distal thoracic aorta with a diameter of 4.0 cm. Enhancing lumen is 2.5 cm. No dissection noted. Marked irregular mixed plaque of the abdominal aorta with some multiple areas of probable plaque ulceration along the left enhanced lumen. There is borderline aneurysm of the distal abdominal aorta of 3 cm. Celiac trunk and mesenteric arteries: Probable high-grade stenosis at the origin of the celiac trunk with very small hepatic arterial branch. There is mixed plaque just distal to the origin of the superior mesenteric artery which is patent. There is a moderate amount of predominantly calcified plaque in the horizontal portion of the SMA with long segment up to 50% stenosis. No aneurysm, dissection or occlusion. The inferior mesenteric artery is patent. Renal arteries: There is marked calcification and high-grade stenosis at the origin of the right renal artery. There is atherosclerotic plaque causing approximate 25% stenosis at the origin of the left renal artery which is otherwise unremarkable. Iliac arteries: There is moderate atherosclerotic plaque of the bilateral iliac arteries. No segmental stenosis or occlusion. Other arteries: The splenic artery appears to constitute from mesenteric vessels in the anterior abdomen and is atherosclerotic. Other veins: Venous enhancement is not optimized to evaluate portal or superior mesenteric vein patency. Lung bases: No abnormality noted. No mass. No consolidation. Heart: Cardiomegaly with left ventricular hypertrophy. No basilar pericardial effusion. Liver: Low attenuation foci in the liver consistent with hepatic cysts. No follow-up is necessary. Gallbladder and bile ducts: No abnormality noted. No calcified stones. No ductal dilation. Pancreas: No abnormality noted. No ductal dilation. No mass. Spleen: No abnormality noted. No splenomegaly. Adrenals: No abnormality noted. No mass. Kidneys and ureters: There is mild bilateral renal cortical scarring. No hydronephrosis or stone. Stomach and bowel: Moderate amounts of stool noted in the visualized colonic segments with scattered diverticula. No diverticulitis. No intestinal hyperemic changes, thickening or inflammatory process. No obstruction. Intraperitoneal space: No abnormality noted. No significant fluid collection. No free air. Bones/joints: No acute or atypical chronic changes. Soft tissues: No abnormality noted. No mass. Lymph nodes: No abnormality noted. No enlarged lymph nodes. IMPRESSION: 1. 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 2. There is probable high-grade stenosis at the origin of the celiac trunk. The splenic artery appears to constitute from mesenteric collaterals. 3. There is marked irregular atherosclerosis of the aorta with areas of plaque ulceration along the left infrarenal abdominal aortic wall. No hemorrhage. ACT 112: Negative or not required by law. Electronically signed by Jennifer Campuzano 07-05-2024 4:50 PM
[2024-07-05] MEDS: HYDROmorphone INJ 0.5 MG/0.5 ML SYR IV PRN (17:51)
--- NOTE | 2024-07-05 19:42 | Communication Note ---
Date of Service: July 05, 2024 Patient initially declined but finally agreed to CTA of abdomen. 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 2. There is probable high-grade stenosis at the origin of the celiac trunk. The splenic artery appears to constitute from mesenteric collaterals. 3. There is marked irregular atherosclerosis of the aorta with areas of plaque ulceration along the left infrarenal abdominal aortic wall. No hemorrhage. -Discussed with patient, verbalized understanding likely contributing to symptoms Vascular consult placed Patient verbalized understanding may require transfer NPO at midnight if intervention possible analgesia prn
[2024-07-06 04:14] VITALS: O2SAT 94
[2024-07-06 06:34] LABS: Hematocrit (blood only) 34.7 % (37.0-47.0); Hemoglobin 11.9 g/dl (12.0-16.0); Mean Corpuscular Hemoglobin 31.3 pg (25.0-34.0); Mean Corpuscular Hgb Conc 34.3 g/dL (32.0-36.0); Mean Corpuscular Volume 91.3 fL (80.0-100.0); Mean Platelet Volume 10.3 fL (9.4-12.4); Platelet Count 123 K/uL (130-400); RDW Coefficient of Variation 12.1 % (11.5-14.5); RDW Standard Deviation 40.5 fL (36.4-46.3); White Blood Count 5.44 K/ul (4.8-10.8)
[2024-07-06 06:57] LABS: BUN Creatinine Ratio 23.1 (10-20); Calcium 8.1 mg/dl (8.6-10.3); Creatinine Clr Calc Pharmacy 29.3 ml/min; Phosphorus 3.5 mg/dl (2.5-4.9); Potassium 3.9 mmol/L (3.5-5.1)
[2024-07-06] MEDS: SODIUM CHLORIDE 0.9% 1,000 ML IV SCH (08:58)
--- NOTE | 2024-07-06 10:25 | Consultation ---
Date of Consultation July 06, 2024 Assessment & Plan (1) Mesenteric artery stenosis: Pt with mild/moderate SMA/celiac artery stenosis on CTA. Current sx of 2 yr hx anorexia and occasional nausea inconsistent with chronic mesenteric ischemia. No indications for vascular surgical intervention at this time. She does also have a L ICA occlusion and significant L subclavian artery stenosis. No indications for surgical intervention, however, do recommend pt have all single arm BP taken in RUE ONLY for accuracy purposes. Pt also with a small thoracoabdominal AAA, measuring approx 4 cm presently and appears stable by imaging. No surgical intervention required, but do recommend pt have surveillance US in 1 year to reeval. Pt initially stated she was unaware of any aneurysm or carotid occlusion, but then stated she has seen a vascular physician at [facility], but is unsure whether she has a follow up scheduled with them. Advised pt we will call her to schedule in our office next year, but if she is seeing [facility] instead, that is fine. Please call if needed. History of Present Illness Reason for Consultation: SMA stenosis Attending Physician: Gretchen Mccartney MD History of Present Illness 73 yo f with hx of colon ca s/p hemicolectomy, HTN, L ICA occlusion, HOCM, dyslipidemia, COPD, GERD, anxiety, admitted with generalized weakness and failure to thrive, seen in consultation today for SMA stenosis. Pt states she has had nausea and anorexia since her colon surgery in 2022. Since that time, she has lost at least 40 lbs. Over the past 3 months, pt states she may have lost about 3-4 lbs. States no desire to eat and occasional nausea. Denies abd pain with eating or post prandial pain. No food fear. Denies melena or hematochezia or chronic diarrhea. States has seen a vascular physician at [facility], but is unsure whether she has any further appts. Denies AVILA, fever, recent illness, chest pain, abd pain, vomiting, rest pain, claudication, other complaints. CTA abd/pelvis demonstrates mild/moderate SMA/celiac art stenosis. Suprarenal AAA noted at 4cm, consistent with previous imaging. Allergies Allergy/AdvReac Type Severity Reaction Status Date / Time amoxicillin [From Augmentin] AdvReac Intermediate ABD Verified 07/04/24 11:40 PAIN/VOMITING azithromycin [From Zithromax] AdvReac Intermediate Diarrhea Verified 07/04/24 11:40 clavulanic acid AdvReac Intermediate ABD Verified 07/04/24 11:40 [From Augmentin] PAIN/VOMITING doxycycline AdvReac Intermediate Diarrhea Verified 07/04/24 11:40 Macrolide Antibiotics AdvReac Intermediate Diarrhea Verified 07/04/24 11:40 salicylates AdvReac Intermediate INTOLERANCE Verified 07/04/24 11:40 Tetracyclines AdvReac Intermediate Diarrhea Verified 07/04/24 11:40 Home Medications Medication Instructions Recorded Confirmed Type albuterol sulfate 90 mcg/actuation 2 puff inhalation Q6H PRN 08/23/22 07/03/24 History aerosol inhaler Shortness Of Breath Or Wheezing alprazolam 0.25 mg tablet 0.25 mg PO TID PRN anxiety 05/02/23 07/03/24 History paroxetine HCl 12.5 mg 12.5 mg PO QAM 05/02/23 07/03/24 History tablet,extended release 24 hr trazodone 100 mg tablet 100 mg PO HS 05/02/23 07/03/24 History amlodipine 5 mg tablet 5 mg PO QAM 07/07/23 07/03/24 History aspirin 81 mg chewable tablet 81 mg PO QAM 09/21/23 07/03/24 History carvedilol 3.125 mg tablet 3.125 mg PO BID 09/21/23 07/03/24 History docusate sodium 100 mg capsule 100 mg PO BID PRN Constipation #30 02/25/24 07/03/24 Rx caps fluticasone propionate 50 2 spray NA DAILY PRN Nasal 02/25/24 07/03/24 Rx mcg/actuation nasal congestion #16 grams spray,suspension nicotine 7 mg/24 hr daily 1 patch transdermal QAM #28 ea 05/04/24 07/03/24 Rx transdermal patch rosuvastatin 20 mg tablet 20 mg PO QAM #30 tabs 05/04/24 07/03/24 Rx loratadine 10 mg tablet 10 mg PO QAM 07/03/24 07/03/24 History Patient History Medical History Acute dehydration Weakness AAA (abdominal aortic aneurysm) Surgical History S/P tubal ligation Family History Other Diabetes Social History Smoking Status: Current every day smoker Tobacco Type: Cigarettes packs per day: 0.5; Cigarettes Per Day: 5; Second Hand Exposure: Yes; Do You Dip or Chew Tobacco: No; Hx Alcohol Use: No Hx Substance Use: No Preferred Language: Grenadian Communication Ability: Effective Crime Investigator Special Agent Required: No Beliefs That Will Affect Care: None Current Living Situation: Spouse Current Living Situation Comment: [facility] Other Information That Helps Us Care for You: No Feels Safe at Home: Yes Safety Concerns: Feels Safe At This Time Assistive Devices: None Review of Systems Review of Systems: All systems reviewed & are unremarkable except as noted in HPI & below Physical Exam Constitutional: well developed, + thin, + frail appearing, cooperative and + underweight; not in distress Neck: trachea midline Respiratory: normal respiratory effort, lungs clear to auscultation Auscultation: + diminished lung sounds Cardiovascular: Rate/Rhythm: regular rate and regular rhythm Heart Sounds: + murmur Vessels: femoral pulses present (+2), posterior tibial pulses present (+2 BLE) and dorsalis pedis pulses present (+2 BLE); + abnormal peripheral pulses Extremities: normal capillary refill; no edema Gastrointestinal (Abdomen): Inspection/Auscultation: abdomen normal to inspection and normal bowel sounds (+ transmitted murmur vs bruit epigastric) Percussion/Palpation: abdomen soft; abdomen nontender and no guarding Musculoskeletal: no cyanosis or clubbing, extremities motor strength 5/5 Skin: no rashes, warm and dry Neurologic: moves all extremities and awake; no focal motor deficits and not confused Psychiatric: Orientation: alert and oriented x 3 (but very poor historian) Affect: + flat affect Mood: + depressed mood Results & Data Vital Signs (Past 12 Hours) Vital Signs Temp Pulse Pulse Resp BP Pulse Ox O2 Del Method 07/06/24 07:32 36.9 C 80 16 105/65 94 Room Air 07/06/24 05:45 66 07/06/24 04:13 37.0 C 76 18 160/90 H 94 Room Air 07/05/24 23:21 36.9 C 63 16 111/66 93 Room Air
[2024-07-06 10:58] VITALS: RESP 18; TEMP 98.8
--- NOTE | 2024-07-06 11:17 | Gastroenterology Progress Note ---
Date of Service July 06, 2024 Assessment & Plan (1) Epigastric pain: (2) Poor appetite: Plan patient still with abdominal discomfort, but feels diet is somewhat better with PPI therapy. - continue with protonix 40mg bid. she should continue with this upon discharge. - vascular surgery to see today given CTA findings. Reviewed their note - no indications for surgical intervention needed at this time. Admission and Anticipated Discharge Date Admission Date: July 03, 2024 Supervising Physician Co-Signing Physician Notes Patient discharged prior to being seen. Vascular surgery did not think patient's symptoms were vascular though they will see her as an outpatient. Continue PPI at discharge. Subjective Patient feels like abdominal pain is slightly improved since starting PPI but still present. she has not had breakfast today as she is awaiting vascular surgery input on CTA findings. 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 2. There is probable high-grade stenosis at the origin of the celiac trunk. The splenic artery appears to constitute from mesenteric collaterals. 3. There is marked irregular atherosclerosis of the aorta with areas of plaque ulceration along the left infrarenal abdominal aortic wall. No hemorrhage. Physical Exam Respiratory: normal respiratory effort, lungs clear to auscultation Cardiovascular: Rate/Rhythm: regular rate and regular rhythm Gastrointestinal (Abdomen): epigastric tenderness to palpation, no guarding, soft. normal bowel sounds. Psychiatric: Orientation: alert and oriented x 3 Results & Data Results & Data Vital Signs (Past 12 Hours) Vital Signs Temp Pulse Pulse Resp BP Pulse Ox O2 Del Method 07/06/24 10:57 98.8 F 58 L 18 152/74 H 94 Room Air 07/06/24 10:10 Room Air 07/06/24 07:32 98.4 F 80 16 105/65 94 Room Air 07/06/24 05:45 66 07/06/24 04:13 98.6 F 76 18 160/90 H 94 Room Air 07/05/24 23:21 98.4 F 63 16 111/66 93 Room Air Coding Level of Care Code 22348 SUB INP/OBS CARE 06/02MIN Diagnoses Epigastric pain R10.13 Poor appetite R63.0
--- NOTE | 2024-07-06 12:59 | Discharge Summary ---
Discharge Summary Date of Service July 06, 2024 Principal Dx & Hospital Course #1 = Principal Diagnosis (1) Acute dehydration: (2) AAA (abdominal aortic aneurysm): (3) Weakness: (4) Syncope: (5) Hypertensive crisis: (6) Anxiety: (7) GERD (gastroesophageal reflux disease): (8) Dyslipidemia: (9) COPD (chronic obstructive pulmonary disease): Plan Ms. Chavis is a 73-year-old female with a past medical history of HTN, HLD, anxiety, depression, GERD, COPD, AAA who presents to the ED on 07/03/2024 with complaints of generalized weakness, altered mental status and nausea/vomiting over the past 2 months. Patient noted to have epigastric pain and underwent EGD 07/04 which revealed mucosal nodule, hematin product, thick gastric folds, and small prepyloric erosion. Mesenteric US revealed plaque in SMA contributing to moderate stenosis--which potentially could be contributing to patient's symptoms. Initially apprehensive to CTA; however, ultimately obtained and revealed the followin. 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 2. There is probable high-grade stenosis at the origin of the celiac trunk. The splenic artery appears to constitute from mesenteric collaterals. 3. There is marked irregular atherosclerosis of the aorta with areas of plaque ulceration along the left infrarenal abdominal aortic wall. No hemorrhage. Vascular consulted who did not feel there was indication for surgery or that symptoms where suggestive of chronic mesenteric ischemia. Discussed case with patient, who requested to go home. Plan to follow up with PCP and establish with [facility], as well as follow up with GI #Stenosis of SMA ?mesenteric ischemia contributing to chronicity of symptoms probable high-grade stenosis at the origin of the celiac trunk. The splenic artery appears to constitute from mesenteric collaterals. Vascular evaluated and reports that it is mild/moderate, no intervention # L ICA occlusion and significant L subclavian artery stenosis. No indications for surgical intervention, however, do recommend pt have all single arm BP taken in RUE ONLY for accuracy purposes. # Aneurysmal dilatation of the proximal and the distal abdominal aorta. proximal abdominal aorta measuring 3.34 x4cm and the distal abdominal aorta measuring 2.85 x 2.68 cm. Will need routine OP follow up surveillance US in 1 year to reeval. #Erosive gastropathy #Thick gastric folds follow up pathology from EGD Continue with PPI BID #Weight loss #Severe protein calorie malnutrition #Bruit on abdominal exam BMI 14.9 noted by GI CTA ordered Stenotype Machine Operator consulted #Hypoglycemia potentially iso poor po intake, low glycogen reserve TSH and cortisol wnl Encourage PO intake A1C 5.2% fasting insulin level pending #Muscoal nodule s/p biopsy found on EGD 07/04, follow up surgical pathology #Hypertensive urgency #chronic left ICA occlusion #Hypertrophic cardiomyopathy: Declined surgical intervention for occlusion, continue aspirin/carvedilol/amlodipine Increase amlodipine #COPD: -managed on albuterol as needed, not in acute exacerbation # HLD: Continue statin #anxiety: -Continue paroxetine/Xanax Notes For Next Care Provider Medication Changes From Visit Protonix 40mg BID Increased amlodipine 10mg daily Admission HPI Per Admitting Provider The patient is a 73-year-old female with a past medical history of HTN, HLD, anxiety, depression, GERD, COPD, AAA who presents to the ED on 07/03/2024 with complaints of generalized weakness, altered mental status and nausea/vomiting over the past 2 months. Patient reports losing about 20-40 pounds over the past 2 months with poor oral intake. Patient does have a history of colon CA with hemicolectomy in October 2022. Patient reports that these issues have been going on for over 2 years intermittently. Reports intermittent abdominal pain and poor appetite. Denies any diarrhea. Denies any actual vomiting but reports consistent nausea. Denies any chest pain or shortness of breath. Denies any respiratory symptoms. Patient also reports intermittent confusion and feeling dizzy and weak that started over the past week. Patient was admitted and 04/27/2024 with syncopal events, chronic left ICA occlusion, found to have hypertrophic cardiomyopathy and acute sigmoid diverticulitis at that time. On arrival to the ED, labs are remarkable for CO2 34, BUN 25, glucose 63, BioFire is negative Chest x-ray is negative Abdomen/pelvis CT is unremarkable The patient will be admitted for failure to thrive and weakness. Admission Exam Per Admitting Provider Constitutional: + ill appearing, + thin and + cachectic; + not well developed and + not well nourished Eyes: PERRL, conjunctivae normal, anicteric sclerae ENMT: external ear and nose normal, oropharynx normal Neck: trachea midline, no thyromegaly Respiratory: normal respiratory effort, lungs clear to auscultation Cardiovascular: RRR, no murmur, no edema Gastrointestinal (Abdomen): normal bowel sounds, soft, nontender, no hepatosplenomegaly Musculoskeletal: no cyanosis or clubbing, extremities motor strength 5/5 Skin: no rashes, warm and dry Neurologic: PERRL, EOMI, accommodation nl, no face palsy, no dysarthria Psychiatric: A+Ox3, euthymic affect Lymphatic: no cervical or axillary lymphadenopathy Discharge Exam Constitutional chronically ill appearing woman, cachectic Respiratory normal respiratory effort, lungs clear to auscultation Cardiovascular RRR, no murmur, no edema Gastrointestinal (Abdomen) tenderness in epigastrium Updated Medication List Medication Instructions Recorded Confirmed Type albuterol sulfate 90 mcg/actuation 2 puff inhalation Q6H PRN 08/23/22 07/03/24 History aerosol inhaler Shortness Of Breath Or Wheezing alprazolam 0.25 mg tablet 0.25 mg PO TID PRN anxiety 05/02/23 07/03/24 History paroxetine HCl 12.5 mg 12.5 mg PO QAM 05/02/23 07/03/24 History tablet,extended release 24 hr trazodone 100 mg tablet 100 mg PO HS 05/02/23 07/03/24 History aspirin 81 mg chewable tablet 81 mg PO QAM 09/21/23 07/03/24 History carvedilol 3.125 mg tablet 3.125 mg PO BID 09/21/23 07/03/24 History docusate sodium 100 mg capsule 100 mg PO BID PRN Constipation #30 02/25/24 07/03/24 Rx caps fluticasone propionate 50 2 spray NA DAILY PRN Nasal 02/25/24 07/03/24 Rx mcg/actuation nasal congestion #16 grams spray,suspension nicotine 7 mg/24 hr daily 1 patch transdermal QAM #28 ea 05/04/24 07/03/24 Rx transdermal patch rosuvastatin 20 mg tablet 20 mg PO QAM #30 tabs 05/04/24 07/03/24 Rx loratadine 10 mg tablet 10 mg PO QAM 07/03/24 07/03/24 History amlodipine 5 mg tablet 10 mg (2 x 5 mg) PO QAM #0 tabs 02/28/25 02/25/25 Rx pantoprazole 40 mg tablet,delayed 40 mg PO BID 30 days #60 tabs 07/06/24 Rx release Hospital Stay Data Consultations 07/03/24 13:32 ED Decision to Admit Stat 07/03/24 15:42 Consult Gastroenterology Routine 07/05/24 17:16 Consult Vascular Surgery Routine Procedures Performed Operation Date: 07/04/24 16:45 Actual Procedures p EGD Biopsy Cytology - Chris Avila MD Diagnostic Imagining Performed 07/03/24 10:19 CT abd pelvis IV con only Stat 07/04/24 13:02 US duplex mesenteric Routine 07/05/24 12:09 CTA abdomen w con [CT angio abdomen w con] Routine Pending Results Patient Have Any Pending Studies at Discharge: Yes (EGD biopsy ) Discharge Instructions Given to Patient (Per Discharging Provider) You were admitted from chronic weight loss You underwent EGD which revealed erosive gastropathy and a nodule which was biopsied. You were started on Protonix 40mg two times a day for the next 30 days with planned follow up with Gastroenterology Your CT scan of the abdomen revealed an area of stenosis for which Vascular was consulted. They do not feel there is any indication for surgical intervention It is recommended that you establish with a Vascular Surgeon with [facility] Total Time Total Time Spent Total Time Spent (In Minutes): 65
[2024-07-06 13:05] VITALS: BP 121/68; PULSE 65
== END 2024-07-06 13:51 | disposition home or self-care (01) ==
LOC: ED 09:09 → 2N 13:36 → SUATTDRO 13:36 → INTOOBSV 13:36 → 2N 15:21

== ENCOUNTER 2024-07-09 13:09 | Observation (INO) ==
[2024-07-09 15:01] LABS: Basophils # (auto) 0.02 K/uL (0.00-0.20); Basophils % (auto) 0.2 %; Eosinophils # (auto) 0.08 K/uL (0.00-0.50); Eosinophils % (auto) 0.8 %; Hematocrit (blood only) 36.3 % (37.0-47.0); Hemoglobin 12.4 g/dl (12.0-16.0); Immature Granulocytes # (auto) 0.05 K/uL (0.01-0.20); Immature Granulocytes % (auto) 0.5 %; Lymphocytes # (auto) 0.98 K/uL (1.20-3.40); Lymphocytes % (auto) 9.7 %; Mean Corpuscular Hgb Conc 34.2 g/dL (32.0-36.0); Mean Corpuscular Volume 90.8 fL (80.0-100.0); Mean Platelet Volume 10.3 fL (9.4-12.4); Monocytes # (auto) 0.34 K/uL (0.11-0.59); Monocytes % (auto) 3.4 %; Neutrophils # (auto) 8.65 K/uL (1.40-6.50); Neutrophils % (auto) 85.4 %; Platelet Count 149 K/uL (130-400); RDW Coefficient of Variation 12.4 % (11.5-14.5); RDW Standard Deviation 41.1 fL (36.4-46.3); White Blood Count 10.12 K/ul (4.8-10.8)
[2024-07-09 15:14] LABS: Albumin Level 4.3 gm/dl (3.4-5.0); BUN Creatinine Ratio 23.6 (10-20); Bilirubin,Total 0.5 mg/dl (0.2-1.0); Calcium 9.3 mg/dl (8.6-10.3); Creatinine Clr Calc Pharmacy 28.1 ml/min; Globulin 2.1 gm/dl (2.5-4.0); Potassium 3.5 mmol/L (3.5-5.1); Total Protein 6.4 gm/dl (6.0-8.3)
--- NOTE | 2024-07-09 17:12 | Emergency Department Note ---
ED Provider Note History of Present Illness Chief Complaint: Animal Bite Stated Complaint: CAT BITE Time Seen by Provider: 07/09/24 16:44 Source: patient Mode of arrival: ambulatory Limitations: no limitations This patient is a 73-year-old female who presents to the emergency department for evaluation of a cat bite to her right hand. Patient reports that she was trying to take her cat to the vet today and the cat became upset when she tried to grab him and bit her in the right hand. There is some mild redness and swelling around the site of the bite. Patient does report pain. She states that the cat is an indoor only cat and has not been outside. She does state that the cat is not up-to-date on vaccines but has not been exposed to any other animals. Home Medications Medication Instructions Recorded Confirmed Type albuterol sulfate 90 mcg/actuation 2 puff inhalation Q6H PRN 08/23/22 07/09/24 History aerosol inhaler Shortness Of Breath Or Wheezing alprazolam 0.25 mg tablet 0.25 mg PO TID PRN anxiety 05/02/23 07/09/24 History paroxetine HCl 12.5 mg 12.5 mg PO QAM 05/02/23 07/09/24 History tablet,extended release 24 hr trazodone 100 mg tablet 100 mg PO HS 05/02/23 07/09/24 History aspirin 81 mg chewable tablet 81 mg PO QAM 09/21/23 07/09/24 History carvedilol 3.125 mg tablet 3.125 mg PO BID 09/21/23 07/09/24 History docusate sodium 100 mg capsule 100 mg PO BID PRN Constipation #30 02/25/24 07/09/24 Rx caps fluticasone propionate 50 2 spray NA DAILY PRN Nasal 02/25/24 07/09/24 Rx mcg/actuation nasal congestion #16 grams spray,suspension nicotine 7 mg/24 hr daily 1 patch transdermal QAM #28 ea 05/04/24 07/09/24 Rx transdermal patch rosuvastatin 20 mg tablet 20 mg PO QAM #30 tabs 05/04/24 07/09/24 Rx loratadine 10 mg tablet 10 mg PO QAM 07/03/24 07/09/24 History amlodipine 5 mg tablet 10 mg (2 x 5 mg) PO QAM #0 tabs 07/06/24 07/09/24 Rx pantoprazole 40 mg tablet,delayed 40 mg PO BID 30 days #60 tabs 07/06/24 07/09/24 Rx release cefuroxime axetil 500 mg tablet 500 mg PO BID 10 days #20 tabs 07/11/24 Rx metronidazole 500 mg tablet 500 mg PO Q8 10 days #30 tabs 07/11/24 Rx Allergies Allergy/AdvReac Type Severity Reaction Status Date / Time amoxicillin [From Augmentin] AdvReac Intermediate ABD Verified 07/04/24 11:40 PAIN/VOMITING azithromycin [From Zithromax] AdvReac Intermediate Diarrhea Verified 07/04/24 11:40 clavulanic acid AdvReac Intermediate ABD Verified 07/04/24 11:40 [From Augmentin] PAIN/VOMITING doxycycline AdvReac Intermediate Diarrhea Verified 07/04/24 11:40 Macrolide Antibiotics AdvReac Intermediate Diarrhea Verified 07/04/24 11:40 salicylates AdvReac Intermediate INTOLERANCE Verified 07/04/24 11:40 Tetracyclines AdvReac Intermediate Diarrhea Verified 07/04/24 11:40 Past Med/Surg History Problem List (Updated 07/10/24 @ 00:06 by Alejandra Soto PA-C) Uncontrolled hypertension Cat bite of hand (Acute) Cellulitis of right hand (Acute) Mesenteric artery stenosis Epigastric pain Poor appetite Acute alteration in mental status (Acute) Abnormal weight loss (Acute) Hypertension (Acute) Hypoglycemia (Acute) Episode of unresponsiveness Occlusion of left internal carotid artery Carotid artery disease Dyslipidemia, goal LDL below 70 Hypertrophic cardiomyopathy Syncope and collapse (Acute) Generalized weakness (Acute) Diverticulitis (Acute) Sigmoid diverticulitis Generalized weakness (Acute) Arthralgia COVID-19 (Acute) Generalized weakness JEANA (acute kidney injury) (Acute) Syncope (Acute) Acute dehydration (Acute) Weakness (Acute) Hypertensive crisis (Acute) Hyponatremia (Acute) Hypokalemia (Acute) Hypertension Recurrent falls (Acute) Anxiety GERD (gastroesophageal reflux disease) Dyslipidemia COPD (chronic obstructive pulmonary disease) (Acute) Medical History Acute dehydration Weakness AAA (abdominal aortic aneurysm) Surgical History S/P tubal ligation Family History Other Diabetes Social History Smoking Status: Current every day smoker Tobacco Type: Cigarettes packs per day: 0.5; Cigarettes Per Day: 1/4 PPD; Second Hand Exposure: No; Do You Dip or Chew Tobacco: No; Tobacco Cessation Education Requested by Patient: No Hx Alcohol Use: No Hx Substance Use: No Preferred Language: Grenadian Communication Ability: Effective Oss Architect Required: No Beliefs That Will Affect Care: None Current Living Situation: Spouse Current Living Situation Comment: lives in 2 story home with Other Information That Helps Us Care for You: No Feels Safe at Home: Yes Safety Concerns: Feels Safe At This Time Assistive Devices: None Physical Exam Vital Signs Vital Signs - 24 hr 07/09/24 13:13 07/09/24 17:33 07/09/24 17:57 Temperature 36.8 C Temperature Source Temporal Artery Scan Pulse Rate 103 H 67 Pulse Rate [Apical] 70 Pulse Rhythm [Apical] Regular Pulse Strength [Apical] Normal Respiratory Rate 20 18 Respiratory Effort / Characteristics Non-Labored Spontaneous Non-Labored Spontaneous Respiratory Depth Normal Normal Respiratory Pattern Regular Blood Pressure 87/51 L Blood Pressure [Right Arm] 222/103 H Blood Pressure Mean 63 Blood Pressure Mean [Right Arm] 142 Blood Pressure Position [Right Arm] Pulse Oximetry 97 99 Oxygen Delivery Method Room Air Room Air Sepsis New/Unexplained Change in Mental Status N/A Sepsis Action Taken by Nursing No Action Required 07/09/24 18:05 07/09/24 18:49 07/09/24 19:13 Temperature 37.1 C Temperature Source Oral Pulse Rate Pulse Rate [Apical] 73 75 Pulse Rhythm [Apical] Regular Regular Pulse Strength [Apical] Normal Respiratory Rate 20 20 Respiratory Effort / Characteristics Non-Labored Spontaneous Non-Labored Spontaneous Respiratory Depth Normal Normal Respiratory Pattern Regular Regular Blood Pressure 212/93 H Blood Pressure [Right Arm] 192/109 H 215/106 H Blood Pressure Mean 129 Blood Pressure Mean [Right Arm] 136 142 Blood Pressure Position [Right Arm] Lying Pulse Oximetry 99 97 Oxygen Delivery Method Room Air Room Air Sepsis New/Unexplained Change in Mental Status Sepsis Action Taken by Nursing GENERAL: Non-toxic. Sitting upright in waiting room chair. Cachectic. HEART: Regular rate and rhythm. LUNGS: Clear to auscultation. SKIN: There is a 1.5 cm linear laceration to the dorsal right hand, proximal to the thumb. No active bleeding. No foreign bodies. Wound appears clean. Erythema surrounding the laceration but limited to the hand. MUSCULOSKELETAL: Tenderness to palpation of the dorsum of the right hand, proximal to the thumb. Course Administered Medications Discontinued Medications Alprazolam (Alprazolam 0.25 Mg Tablet) 0.25 mg PO TID PRN PRN Reason: anxiety Stop: 08/08/24 22:33 Last Admin: 07/11/24 14:01 Dose: 0.25 mg Documented By: Admin: 07/11/24 09:27 Dose: 0.25 mg Documented By: Admin: 07/10/24 08:14 Dose: 0.25 mg Documented By: ERIN Amlodipine Besylate (Amlodipine Besylate 5 Mg Tab) 10 mg PO NOW ONE Stop: 07/09/24 22:13 Last Admin: 07/09/24 22:29 Dose: 10 mg Documented By: DAMIAN Amlodipine Besylate (Amlodipine Besylate 5 Mg Tab) 10 mg PO [facility] Stop: 08/09/24 08:59 Last Admin: 07/11/24 09:15 Dose: 10 mg Documented By: Admin: 07/10/24 08:00 Dose: 10 mg Documented By: ERIN Aspirin (Aspirin 81 Mg Ectab) 81 mg PO [facility] Stop: 08/09/24 08:59 Last Admin: 07/11/24 09:15 Dose: 81 mg Documented By: Admin: 07/10/24 08:01 Dose: 81 mg Documented By: ERIN Carvedilol (Carvedilol 3.125 Mg Tab) 3.125 mg PO NOW STA Stop: 07/09/24 19:20 Last Admin: 07/09/24 19:33 Dose: 3.125 mg Documented By: DAMIAN Carvedilol (Carvedilol 3.125 Mg Tab) 3.125 mg PO BID [facility] Stop: 08/08/24 22:33 Last Admin: 07/11/24 09:15 Dose: 3.125 mg Documented By: Admin: 07/10/24 20:19 Dose: 3.125 mg Documented By: Admin: 07/10/24 08:00 Dose: 3.125 mg Documented By: Admin: 07/10/24 00:36 Dose: 3.125 mg Documented By: PAYTON Cefuroxime Axetil (Cefuroxime Axetil 500 Mg Tab) 500 mg PO BID [facility] Stop: 07/18/24 08:59 Last Admin: 07/11/24 09:15 Dose: 500 mg Documented By: TANYA Enoxaparin Sodium (Enoxaparin Inj 40 Mg/0.4 Ml Syr) 40 mg SQ HS KE[facility] Stop: 08/08/24 22:44 Last Admin: 07/10/24 20:22 Dose: Not Given Documented By: Admin: 07/10/24 00:36 Dose: 40 mg Documented By: PAYTON Ceftriaxone Sodium (Rocephin) 1,000 mg in 50 mls @ 100 mls/hr IV NOW STA Stop: 07/09/24 17:33 Last Infusion: 07/09/24 19:09 Dose: Infused Documented By: Admin: 07/09/24 17:44 Dose: 100 mls/hr Documented By: DAMIAN Ceftriaxone Sodium (Rocephin) 1,000 mg in 50 mls @ 100 mls/hr IV Q24H [facility] Stop: 07/11/24 04:59 Last Infusion: 07/10/24 23:45 Dose: Infused Documented By: Admin: 07/10/24 23:15 Dose: 100 mls/hr Documented By: Infusion: 07/10/24 01:57 Dose: Infused Documented By: Admin: 07/10/24 01:24 Dose: 100 mls/hr Documented By: PAYTON Metronidazole (Flagyl) 500 mg in 100 mls @ 100 mls/hr IV Q8 KEELY; Protocol Stop: 07/16/24 22:44 Last Infusion: 07/10/24 14:45 Dose: Infused Documented By: Admin: 07/10/24 13:13 Dose: 100 mls/hr Documented By: Infusion: 07/10/24 06:28 Dose: Infused Documented By: Admin: 07/10/24 05:25 Dose: 100 mls/hr Documented By: Infusion: 07/10/24 01:25 Dose: Infused Documented By: Admin: 07/10/24 00:22 Dose: 100 mls/hr Documented By: PAYTON Lactulose (Lactulose Syrup 20 Gm/30 Ml Udc) 20 gm PO NOW ONE Stop: 07/11/24 08:31 Last Admin: 07/11/24 09:12 Dose: 20 gm Documented By: TANYA Loratadine (Loratadine 10 Mg Tab) 10 mg PO [facility] Stop: 08/09/24 08:59 Last Admin: 07/11/24 09:15 Dose: 10 mg Documented By: Admin: 07/10/24 08:00 Dose: 10 mg Documented By: ERIN Lorazepam (Lorazepam 0.5 Mg Tab) 0.25 mg PO NOW STA Stop: 07/09/24 19:19 Last Admin: 07/09/24 19:33 Dose: 0.25 mg Documented By: DAMIAN Metronidazole (Metronidazole 500 Mg Tab) 500 mg PO NOW STA; Protocol Stop: 07/09/24 18:40 Last Admin: 07/09/24 19:08 Dose: 500 mg Documented By: DAMIAN Metronidazole (Metronidazole 500 Mg Tab) 500 mg PO Q8 [facility]; Protocol Stop: 07/17/24 21:59 Last Admin: 07/11/24 13:59 Dose: 500 mg Documented By: Admin: 07/11/24 05:41 Dose: 500 mg Documented By: Admin: 07/10/24 23:14 Dose: 500 mg Documented By: CHAKA Miscellaneous (Remove Nicoderm Patch) 1 each N/A DAILY@0859 [facility] Stop: 08/09/24 08:58 Last Admin: 07/11/24 08:57 Dose: 1 each Documented By: Admin: 07/10/24 08:05 Dose: Not Given Documented By: ERIN Morphine Sulfate (Morphine Sulfate 2 Mg/Ml Carp) 2 mg IV NOW STA Stop: 07/09/24 19:05 Last Admin: 07/09/24 19:08 Dose: 2 mg Documented By: DAMIAN Nicotine (Nicotine 14 Mg/24 Hr Patch) 1 patch TD [facility] Stop: 08/09/24 08:59 Last Admin: 07/11/24 09:15 Dose: 1 patch Documented By: Admin: 07/10/24 08:02 Dose: 1 patch Documented By: ERIN Oxycodone HCl (Oxycodone Hcl Ir 5 Mg Tab (Immediate Release)) 5 mg PO Q4H PRN PRN Reason: Pain Stop: 07/23/24 22:33 Last Admin: 07/11/24 06:35 Dose: 5 mg Documented By: Admin: 07/10/24 13:24 Dose: 5 mg Documented By: ERIN Pantoprazole Sodium (Pantoprazole 40 Mg Tab) 40 mg PO BID [facility] Stop: 08/08/24 22:33 Last Admin: 07/11/24 09:16 Dose: 40 mg Documented By: Admin: 07/10/24 20:19 Dose: 40 mg Documented By: Admin: 07/10/24 08:01 Dose: 40 mg Documented By: Admin: 07/10/24 00:24 Dose: 40 mg Documented By: PAYTON Paroxetine HCl (Paroxetine Hcl Controlled Rel 12.5 Mg Tabcr) [facility] [place] Stop: 08/09/24 08:59 Last Admin: 07/11/24 09:16 Dose: 12.5 mg Documented By: Admin: 07/10/24 09:40 Dose: Not Given Documented By: ERIN Polyethylene Glycol (Polyethylene (Miralax) 17 Gm Pack) 17 gm PO DAILY PRN PRN Reason: Constipation Stop: 08/08/24 22:33 Last Admin: 07/10/24 13:24 Dose: 17 gm Documented By: ERIN Rosuvastatin Calcium (Rosuvastatin Calcium 20 Mg Tab) [facility] [place] Stop: 08/09/24 08:59 Last Admin: 07/11/24 09:16 Dose: 20 mg Documented By: Admin: 07/10/24 08:00 Dose: 20 mg Documented By: ERIN Trazodone HCl (Trazodone Hcl 100 Mg Tab) 100 mg PO HS [facility] Stop: 08/08/24 22:33 Last Admin: 07/10/24 20:19 Dose: 100 mg Documented By: Admin: 07/10/24 00:36 Dose: 100 mg Documented By: PAYTON Medical Decision Making Differential Diagnosis Differential diagnosis includes animal bite, cellulitis, abscess, tenosynovitis, among others. Laboratory Data Attestation: I reviewed the patient's lab results. 07/10/24 09:19 07/11/24 08:41 Lab Results 07/09/24 Range/Units 14:42 WBC 10.12 (4.8-10.8) K/ul RBC 4.00 L (4.20-5.40) M/uL Hgb 12.4 (12.0-16.0) g/dl Hct 36.3 L (37.0-47.0) % MCV 90.8 (80.0-100.0) fL MCH 31.0 (25.0-34.0) pg MCHC 34.2 (32.0-36.0) g/dL RDW Std Deviation 41.1 (36.4-46.3) fL RDW Coeff of Yamile 12.4 (11.5-14.5) % Plt Count 149 (130-400) K/uL MPV 10.3 (9.4-12.4) fL Immature Gran % (Auto) 0.5 % Neut % (Auto) 85.4 % Lymph % (Auto) 9.7 % [place] % (Auto) 3.4 % Eos % (Auto) 0.8 % Baso % (Auto) 0.2 % Neut # (Auto) 8.65 H (1.40-6.50) K/uL Lymph # (Auto) 0.98 L (1.20-3.40) K/uL [place] # (Auto) 0.34 (0.11-0.59) K/uL Eos # (Auto) 0.08 (0.00-0.50) K/uL Baso # (Auto) 0.02 (0.00-0.20) K/uL Immature Gran # (Auto) 0.05 (0.01-0.20) K/uL Sodium 136 (136-145) mmol/L Potassium 3.5 (3.5-5.1) mmol/L Chloride 103 (98-107) mmol/L Carbon Dioxide 28 (21-32) mmol/L Anion Gap 5 (3-11) BUN 29 H (6-23) mg/dl Creatinine 1.23 H (0.6-1.2) mg/dl Est Cr Clr Drug Dosing 28.1 ml/min eGFR 46.98 BUN/Creatinine Ratio 23.6 H (10-20) Glucose 171 H (70-99(Fasting)) mg/dl Calcium 9.3 (8.6-10.3) mg/dl Total Bilirubin 0.5 (0.2-1.0) mg/dl AST 21 (13-39) U/L ALT 22 (7-52) U/L Alkaline Phosphatase 47 (34-104) U/L Total Protein 6.4 (6.0-8.3) gm/dl Albumin 4.3 (3.4-5.0) gm/dl Globulin 2.1 L (2.5-4.0) gm/dl Albumin/Globulin Ratio 2.0 (0.9-2) MDM Narrative This patient is a 73-year-old female who presents to the emergency department for evaluation of a cat bite to her right hand. On initial assessment, patient has a small laceration. I elected not to repair since it was caused by a cat bite. There was some mild surrounding edema and erythema. A dose of IV antibiotics was ordered and patient was moved from a waiting room to her room. At this time her blood pressure was rechecked. She was noted to be hypotensive in triage but quite hypertensive when moved to a room. I suspect that the wrong size of cuff was used for the patient as she is frequently hypertensive. I reassessed the patient after she received her IV ceftriaxone. At this time, the redness has already started to spread and she is having lymphangitic streaking noted up the right arm into the antecubital fossa. Given this progression of symptoms I do think patient would benefit from inpatient care. She was given a dose of p.o. Flagyl. [facility] the patient for further care. Attending Attestation: I Kingsley Adorno MD I have reviewed the advanced practitioner's documentation and agree with the plan of care. I accept the responsibility for the associated risk of managing the patient. I performed a substantive portion of the visit including involvement in all aspects of medical decision making. Cat bite developing streaking started on antibiotics, further inpatient observation. Impression Cellulitis of right hand, Cat bite of hand Discharge Plan Visit Data Chief Complaint: Animal Bite Stated Complaint: CAT BITE ED Provider: Kingsley Adorno ED Midlevel Provider: Alejandra Soto Discharge Problem: Cellulitis of right hand, Cat bite of hand Patient Disposition: Admitted As Inpatient Discharge Instructions Interventions: ED Discharge Assessment Last Done: 07/09/24 22:34
[2024-07-09] MEDS: cefTRIAXone SODIUM 1,000 MG/50 ML BAG IV STA (17:44)
[2024-07-09] MEDS: metroNIDAZOLE 500 MG TAB PO STA (19:08)
[2024-07-09] MEDS: MoRPHine SULFATE 2 MG/ML CARP IV STA (19:08)
[2024-07-09] MEDS: LORazepam 0.5 MG TAB PO STA (19:33)
[2024-07-09] MEDS: carvediloL 3.125 MG TAB PO STA (19:33)
--- NOTE | 2024-07-09 19:43 | History & Physical Report ---
Date of Service July 09, 2024 Assessment & Plan (1) Cellulitis of right hand: (2) Cat bite of hand: (3) Uncontrolled hypertension: (4) Mesenteric artery stenosis: (5) Carotid artery disease: (6) COPD (chronic obstructive pulmonary disease): (7) Anxiety: Plan Patient 73-year-old female with evidence of rapidly advancing cellulitis of the right hand due to a cat bite. Patient high risk for progression and possible sepsis. Will need hospital monitoring and IV medications. Observe in the hospital and MedSurg unit Due to patient's numerous antibiotic allergies continue Rocephin and Flagyl for cat bite cellulitis Continue other outpatient medications as prescribed Anticipate if significant improvement of the cellulitis within the next 24 hours could be transition to oral antibiotics and discharged home. Son and [id number] at bedside and agreeable to plan of care. History of Present Illness Chief Complaint: Bite right hand Primary Care Provider: Adriel Whitaker MD Patient is a 73-year-old female just recently discharged from [facility] after having diagnosis of some gastropathy and SMA stenosis. She reports that she has been doing well at home, however, she was getting her To take to the vet today and the cat bit her on her right hand. As the day went on the hand got more red, swollen and painful and came to the emergency room for evaluation. In the emergency room there is some venous streaking or concern she would not do well with outpatient therapy and was referred to our service for further evaluation. Time my evaluation patient states that the pain is little bit better with the morphine. She denies any fever or chills. And as mentioned has been doing well at home since her recent discharge. Has been eating better since she has been discharged. Allergies Allergy/AdvReac Type Severity Reaction Status Date / Time amoxicillin [From Augmentin] AdvReac Intermediate ABD Verified 07/04/24 11:40 PAIN/VOMITING azithromycin [From Zithromax] AdvReac Intermediate Diarrhea Verified 07/04/24 11:40 clavulanic acid AdvReac Intermediate ABD Verified 07/04/24 11:40 [From Augmentin] PAIN/VOMITING doxycycline AdvReac Intermediate Diarrhea Verified 07/04/24 11:40 Macrolide Antibiotics AdvReac Intermediate Diarrhea Verified 07/04/24 11:40 salicylates AdvReac Intermediate INTOLERANCE Verified 07/04/24 11:40 Tetracyclines AdvReac Intermediate Diarrhea Verified 07/04/24 11:40 Home Medications Medication Instructions Recorded Confirmed Type albuterol sulfate 90 mcg/actuation 2 puff inhalation Q6H PRN 08/23/22 07/09/24 History aerosol inhaler Shortness Of Breath Or Wheezing alprazolam 0.25 mg tablet 0.25 mg PO TID PRN anxiety 05/02/23 07/09/24 History paroxetine HCl 12.5 mg 12.5 mg PO QAM 05/02/23 07/09/24 History tablet,extended release 24 hr trazodone 100 mg tablet 100 mg PO HS 05/02/23 07/09/24 History aspirin 81 mg chewable tablet 81 mg PO QAM 09/21/23 07/09/24 History carvedilol 3.125 mg tablet 3.125 mg PO BID 09/21/23 07/09/24 History docusate sodium 100 mg capsule 100 mg PO BID PRN Constipation #30 02/25/24 07/09/24 Rx caps fluticasone propionate 50 2 spray NA DAILY PRN Nasal 02/25/24 07/09/24 Rx mcg/actuation nasal congestion #16 grams spray,suspension nicotine 7 mg/24 hr daily 1 patch transdermal QAM #28 ea 05/04/24 07/09/24 Rx transdermal patch rosuvastatin 20 mg tablet 20 mg PO QAM #30 tabs 05/04/24 07/09/24 Rx loratadine 10 mg tablet 10 mg PO QAM 07/03/24 07/09/24 History amlodipine 5 mg tablet 10 mg (2 x 5 mg) PO QAM #0 tabs 07/06/24 07/09/24 Rx pantoprazole 40 mg tablet,delayed 40 mg PO BID 30 days #60 tabs 07/06/24 07/09/24 Rx release Past Med/Surg History Problem List (Updated 07/09/24 @ 19:47 by Brian Mills DO) Uncontrolled hypertension Cat bite of hand Cellulitis of right hand Mesenteric artery stenosis Epigastric pain Poor appetite Acute alteration in mental status (Acute) Abnormal weight loss (Acute) Hypertension (Acute) Hypoglycemia (Acute) Episode of unresponsiveness Occlusion of left internal carotid artery Carotid artery disease Dyslipidemia, goal LDL below 70 Hypertrophic cardiomyopathy Syncope and collapse (Acute) Generalized weakness (Acute) Diverticulitis (Acute) Sigmoid diverticulitis Generalized weakness (Acute) Arthralgia COVID-19 (Acute) Generalized weakness JEANA (acute kidney injury) (Acute) Syncope (Acute) Acute dehydration (Acute) Weakness (Acute) Hypertensive crisis (Acute) Hyponatremia (Acute) Hypokalemia (Acute) Hypertension Recurrent falls (Acute) Anxiety GERD (gastroesophageal reflux disease) Dyslipidemia COPD (chronic obstructive pulmonary disease) (Acute) Medical History Acute dehydration Weakness AAA (abdominal aortic aneurysm) Surgical History S/P tubal ligation Family History Other Diabetes Social History Smoking Status: Current every day smoker Tobacco Type: Cigarettes packs per day: 0.5; Cigarettes Per Day: 5; Second Hand Exposure: Yes; Do You Dip or Chew Tobacco: No; Hx Alcohol Use: No Hx Substance Use: No Preferred Language: Dominican Communication Ability: Effective Char Belt Operator Required: No Beliefs That Will Affect Care: None Current Living Situation: Spouse Current Living Situation Comment: Fernando Feels Safe at Home: Yes Assistive Devices: None Review of Systems Review of Systems: Pertinent positive and negative review of systems as mentioned in the HPI Physical Exam Physical Exam: Constitutional: Alert, mildly ill in appearance, nontoxic, frail, cachectic HEENT: Mucous membranes moist. Sclera clear Neck: Soft, no adenopathy Lungs: Clear to auscultation, decreased, no wheezes rales or rhonchi CV: S1-S2, regular, systolic murmur Abdomen: Soft, nontender, nondistended Extremities: No significant edema Musculoskeletal: Right hand thenar eminence and thumb, erythematous, swollen, tender. Evidence of puncture wounds on the thumb and thenar eminence as well as some cat scratches on hand and forearm. Some venous streaking up anterior forearm to the antecubital fossa Neuro: No focal deficits Psych: Cooperative, normal mood Results & Data Results & Data Vital Signs (Past 12 Hours) Vital Signs Temp Pulse Pulse Resp BP BP Pulse Ox 07/09/24 18:49 37.1 C 75 20 215/106 H 97 07/09/24 18:05 73 20 192/109 H 99 07/09/24 17:57 67 07/09/24 17:33 70 18 222/103 H 99 07/09/24 13:13 36.8 C 103 H 20 87/51 L 97 O2 Del Method 07/09/24 18:49 Room Air 07/09/24 18:05 Room Air 07/09/24 17:57 07/09/24 17:33 Room Air 07/09/24 13:13 Room Air Diagnostic Findings Reviewed imaging, laboratory and diagnostic studies. Pertinent findings as below. WBCs 10.1 Hemoglobin 12.4 Creatinine 1.2 Glucose 171 EKG, personally reviewed, sinus rhythm Code Status & VTE Plan VTE Prophylaxis Plan VTE Prophylaxis will be ordered: Yes (6) COPD (chronic obstructive pulmonary disease) COPD type: COPD with acute exacerbation Qualified Code(s): J44.1 - Chronic obstructive pulmonary disease with (acute) exacerbation
[2024-07-09] MEDS: amLODIPine BESYLATE 5 MG TAB PO ONE (22:29)
[2024-07-09] MEDS ORDERED: FLUTICASONE PROPIONATE NA SPR 16 GM BTL PRN (22:34)
[2024-07-09] MEDS ORDERED: ONDANSETRON INJ 2 MG/ML 2 ML VIAL IV PRN (22:34)
[2024-07-09] MEDS ORDERED: ACETAMINOPHEN 325 MG TAB PO PRN (22:34)
[2024-07-09] MEDS ORDERED: DOCUSATE SODIUM 100 MG CAP PO PRN (22:34)
[2024-07-09] MEDS ORDERED: ALBUTEROL HFA 8 GM INHALER INH PRN (22:34)
[2024-07-09] MEDS ORDERED: ALUMINUM/MAGNESIUM SUSP 30 ML UDC PO PRN (22:34)
--- OUTSIDE RECORDS SUMMARY | 2024-07-09 23:11 | External Medical Summary | Summary of Care ---
Author Name Unknown Organization [facility] Address [address] [place] [address] Phone [phone] Care Team Providers Care Wood Heel Finisher Name Role Phone Adriel Whitaker MD Primary Care Provider [phone]- [phone] Encounter Details Date Type Department Care Team (Late st Contact Info) Description 07/05/2024 Orders Only [facility] [address] [place] [address] Adriel Whitaker MD [address] [place] [address] Allergies Active Allergy Reactions Criticality Noted Date Comments Cisapride 11/05/1998 diarrhea Doxycycline 11/05/1998 diarrhea Macrolides And Ketolides 05/17/2000 zithromax, diarrhea Salicylates 11/05/1998 intol documented as of this encounter (statuses as of 07/05/2024) Medications Acetaminophen 500 MG Oral Tablet (Tylenol) [...] the morning. 90 Tablet 3 4 Active amLODIPine Besylate [...] the morning. 30 Tablet 5 5 Active traZODone HCl 100 MG Oral Tablet (Desyrel)Indica tions:Insomnia, unspecified type Take 1 Tablet by mouth at bedtime. 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 (5 years old or older) Answer Date of Assessment Author No 11/08/2022 3:05 PM Carine Cole RN * Do you have difficulty dressing or bathing? (5 years old or older) Answer Date of Assessment Author No 11/08/2022 3:05 PM EDCarine Balderas RN * Because of a physical, mental, or emotional condition, do you have difficulty doing errands alone such as visiting a doctors office or shopping? (15 years old or older) Answer Date of Assessment Author No 11/08/2022 3:05 PM EDT Carine Carmen RN documented as of this encounter Mental Status * Because of a physical, mental, or emotional condition, do you have serious difficulty concentrating, remembering, or making decisions? (5 years old or older) Answer Entry Date Author No 11/08/2022 3:05 PM MARIETTAT Carine Carmen RN documented in this encounter Plan of Treatment Upcoming Encounters Date Type Department Care Team (Late st Contact Info) Description 08/08/2024 11:00 AM EDT Office Visit Hematology/Oncology [facility] [address] [place] [address] Yosvany Moe MD [address] [place] [address] 09/05/2024 8:30 AM EDT Cardiac Studies Cardiac Studies, [facility] [address] [facility] [place] [address] 09/07/2024 1:00 PM EDT [facility] [address] [address] Adriel Whitaker MD [address] [place] [address] Scheduled Procedures Name Priority Associated Diagnoses Date/Ti [...] 10/19/2023 10/18/2013, 05/09/1990, 05/09/1990 COVID-19 Vaccine ( - season) 2024 04/01/2021, 07/22/2020, 07/01/2020 Depression Monitoring 03/01/2025 03/01/2024 GFR 04/03/2025 04/03/2024, 11/06, 07/20/2023, Additional history exists O2 ASSESSMENT COMPLETED IN PAST YEAR FOR COPD 04/18/2025 04/18/2024 Albumin/Creatinine Ratio 11/04/2025 11/04/2022, /0 10/2011 Lipid Panel 11/20/2028 11/21/2023, 10/08, 09/18/2021, [...] on patient's age to complete this topic Meningitis B Vaccine (Bexsero/Trumemba) Aged Out No longer eligible based on patient's age to complete this topic documented as of this encounter Medical Devices Not on filedocumented as of this encounter Procedures Procedure Name Priority Date/Time Associated Diagnosis Comments UPPER ENDOSCOPY, OUTSIDE PROCEDURE Routine 07/03/2024 documented in this encounter Results * UPPER ENDOSCOPY, OUTSIDE PROCEDURE (07/03/2024) 07/03/2024 us History Per Patient GASTRO UPPER Final Result OUTSIDE LAB (SEE SCANNED REPORT) documented in this encounter Advance Directives * Full Code (Latest Code Status on File) Date Activated Date Inactivated Comments 11/08/2022 11:27 AM 11/11/2022 4:51 PM Question Answer Comments Discussion of Advance Directives occurred with: Patient Care Teams Wood Heel Finisher Relationship Specialty Start Date End Date Adriel Whitaker MD [address] [address] PCP - General Family Medicine 10/20/17 documented as of this encounter
--- OUTSIDE RECORDS SUMMARY | 2024-07-09 23:11 | External Medical Summary | Summary of Care ---
Author Name Unknown Organization [facility] Address [address] [place] [address] Phone [phone] Care Team Providers Care Lettuce Trimmer Name Role Phone Marisela Vaughan MD Primary Care Provider [phone]- [phone] Reason for Visit * Reason Onset Date Comments Medication Refill 07/02/2024 Encounter Details Date Type Department Care Team (Late st Contact Info) Description 07/02/[address] [address] Marisela Vaughan MD [address] [place], [place] [id number] Insomnia, unspecified type Allergies Active Allergy Reactions Criticality Noted Date Comments Cisapride 11/05/1998 diarrhea Doxycycline 11/05/1998 diarrhea Macrolides And Ketolides 05/17/2000 zithromax, diarrhea Salicylates 11/05/1998 intol documented as of this encounter (statuses as of 07/04/2024) Medications Acetaminophen 500 MG Oral Tablet (Tylenol) [...] morning. 90 Tablet 3 06/30/19 24 Active amLODIPine Besylate 5 MG Oral [...] for Anxiety. 90 Tablet 06/01/19 25 Active Loratadine 10 MG Oral Tablet (Claritin) Take 1 Tablet by mouth in the morning. 30 Tablet 5 06/07/19 25 Active traZODone HCl 100 MG Oral Tablet (Desyrel)Indica tions:Insomnia, unspecified type Take 1 Tablet by mouth at bedtime. 90 Tablet 3 07/04/19 25 Active traZODone HCl 100 MG Oral Tablet (Desyrel)Indica tions:Insomnia, unspecified type Take 1 Tablet by mouth at bedtime. 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 Authorizing Provider: MARISELA VAUGHAN Ordering User: NOHELIA LANG * Telephone Encounter - Beata Chahal, plastic products sales representative - 07/02/2024 2:08 PM EST Did you pend patient's preferred pharmacy and medication before forwarding?yes Pharmacy: [id number] [address] [facility] Pending Prescriptions: Disp Refills traZODone HCl 100 MG Oral Tablet (Desyrel)90 Tab*3 Sig: Take 1 Tablet by mouth at bedtime. Last Visit: 06/07/2024 (in office), Visit date not found (telemedicine) Next Visit: 09/07/2024 If no future appointments scheduled, and last appointment is greater than a year ago, please schedule patient for a follow-up appointment Last date the medication was ordered: 07/18/2023 Is this request for a controlled substance?No Urine Drug Screen: Results for orders placed [...] 08/08/2024 11:00 AM EDT Office Visit Hematology/Oncology [facility] [address] [facility] [place] [phone] Yosvany Meo MD [address] [facility] [place] [address] 09/05/2024 8:30 AM EDT Cardiac Studies Cardiac Studies, [facility] [address] [facility] [place] [address] 09/07/2024 1:00 PM EDT [facility] [address] [facility] [place] [phone] Marisela Vaughan MD [address] [facility] [place] [address] Scheduled Procedures Name Priority Associated Diagnoses Date/Ti [...] Comments DISCUSS TOBACCO CESSATION (REFER TO SMARTSET #[id number]) 1950 Alpha-1 Antitrypsin 1970 Hepatitis C Screening [...] as of this encounter Visit Diagnoses Diagnosis Insomnia, unspecified type documented in this encounter Advance Directives * Full Code (Latest Code Status on File) Date Activated Date Inactivated Comments 11/08/2022 11:27 AM 11/11/2022 4:51 PM Question Answer Comments Discussion of Advance Directives occurred with: Patient Care Teams Lettuce Trimmer Relationship Specialty Start Date End Date Marisela Vaughan MD [address] [address] PCP - General Family Medicine 10/20/17 documented as of this encounter
[2024-07-10] MEDS: metroNIDAZOLE 500 MG/100 ML BAG IV SCH (00:22)
[2024-07-10] MEDS: PANTOprazole 40 MG TAB PO SCH (00:24)
[2024-07-10] MEDS: ENOXAPARIN INJ 40 MG/0.4 ML SYR SQ SCH (00:36)
[2024-07-10] MEDS: traZODone HCL 100 MG TAB PO SCH (00:36)
[2024-07-10] MEDS: carvediloL 3.125 MG TAB PO SCH (00:36)
[2024-07-10] MEDS: cefTRIAXone SODIUM 1,000 MG/50 ML BAG IV SCH (01:24)
[2024-07-10] MEDS: LORATADINE 10 MG TAB PO SCH (08:00)
[2024-07-10] MEDS: ROSUVASTATIN CALCIUM 20 MG TAB PO SCH (08:00)
[2024-07-10] MEDS: amLODIPine BESYLATE 5 MG TAB PO SCH (08:00)
[2024-07-10] MEDS: ASPIRIN 81 MG ECTAB PO SCH (08:01)
[2024-07-10] MEDS: NICOTINE 14 MG/24 HR PATCH TD SCH (08:02)
[2024-07-10] MEDS: PARoxetine HCl CONTROLLED REL 12.5 MG TABCR PO SCH (08:07)
[2024-07-10] MEDS: ALPRAZolam 0.25 MG TABLET PO PRN (08:14)
[2024-07-10 10:13] LABS: Hematocrit (blood only) 35.5 % (37.0-47.0); Hemoglobin 11.9 g/dl (12.0-16.0); Mean Corpuscular Hgb Conc 33.5 g/dL (32.0-36.0); Mean Corpuscular Volume 92.4 fL (80.0-100.0); Platelet Count 126 K/uL (130-400); RDW Coefficient of Variation 12.6 % (11.5-14.5); RDW Standard Deviation 42.5 fL (36.4-46.3); Red Blood Count 3.84 M/uL (4.20-5.40); White Blood Count 8.38 K/ul (4.8-10.8)
[2024-07-10 10:18] LABS: BUN Creatinine Ratio 22.1 (10-20); Creatinine Clr Calc Pharmacy 33.4 ml/min; Potassium 3.2 mmol/L (3.5-5.1)
[2024-07-10] MEDS: POLYETHYLENE (MIRALAX) 17 GM PACK PO PRN (13:24)
[2024-07-10] MEDS: oxyCODONE HCL IR 5 MG TAB (IMMEDIATE RELEASE) PO PRN (13:24)
--- NOTE | 2024-07-10 17:33 | Hospitalist Progress Note ---
Date of Service July 10, 2024 Assessment & Plan (1) Cellulitis of right hand: (2) Cat bite of hand: (3) Uncontrolled hypertension: (4) Mesenteric artery stenosis: (5) Carotid artery disease: (6) COPD (chronic obstructive pulmonary disease): (7) Anxiety: Plan Ms. Chavis is a 73-year-old female with a past medical history of HTN, HLD, anxiety, depression, GERD, COPD, AAA with rapidly advancing cellulitis of the right hand due to a cat bite. Plan for dispo tomorrow with po antibitotics #Cat bite c/b cellulitis Due to patient's numerous antibiotic allergies continue Rocephin and Flagyl for cat bite cellulitis Continue other outpatient medications as prescribed Anticipate if significant improvement of the cellulitis within the next 24 hours could be transition to oral antibiotics and discharged will transition to cefuroxime and flagyl q8h and assess po tolerance #Moderate stenosis of SMA # Aneurysmal dilatation of the proximal and the distal abdominal aorta. proximal abdominal aorta measuring 3.34 x4cm and the distal abdominal aorta measuring 2.85 x 2.68 cm. Will need routine OP follow up #Erosive gastropathy #Thick gastric folds pathology reviewed from prior admission with chronic gastritis noted Continue with PPI BID #Weight loss #Severe protein calorie malnutrition #Bruit on abdominal exam BMI 15.2 #Hypoglycemia potentially iso poor po intake, low glycogen reserve TSH and cortisol wnl Encourage PO intake A1C 5.2% #Muscoal nodule s/p biopsy found on EGD 07/04, focal intestinal metaplasia #Hypertension #chronic left ICA occlusion #Hypertrophic cardiomyopathy: Declined surgical intervention for occlusion, continue aspirin /carvedilol/amlodipine #COPD: -managed on albuterol as needed, not in acute exacerbation # HLD: Continue statin #anxiety: -Continue paroxetine/Xanax Full code DVT prophylaxis: Heparin subcu Admission and Anticipated Discharge Date Admission Date: July 09, 2024 Subjective NAEO reports no pain or concerns at time denies fevers, but still some erythema streaked up arm noted Physical Exam Constitutional: WD/WN, vitals as above Respiratory: normal respiratory effort, lungs clear to auscultation Cardiovascular: RRR, no murmur, no edema Skin: bandage around right hand with some erythema seen streaking up anterior forearm Results & Data Results & Data Vital Signs (Past 12 Hours) Vital Signs Temp Pulse Resp BP Pulse Ox O2 Del Method 07/10/24 14:59 37.1 C 64 16 107/67 98 Room Air 07/10/24 07:19 36.6 C 74 16 102/62 95 Room Air Laboratory Results Short CBC 07/10/24 Range/Units 09:19 WBC 8.38 (4.8-10.8) K/ul Hgb 11.9 L (12.0-16.0) g/dl Hct 35.5 L (37.0-47.0) % Plt Count 126 L (130-400) K/uL BMP 07/10/24 09:19 Sodium 138 Potassium 3.2 L Chloride 103 Carbon Dioxide 31 BUN 23 Creatinine 1.04 Glucose 122 H Calcium 9.0 Medications Administered Home Medications Medication Instructions Recorded Confirmed Last Taken albuterol sulfate 90 mcg/actuation 2 puff inhalation Q6H PRN 08/23/22 07/09/24 08/22/22 aerosol inhaler Shortness Of Breath Or Wheezing alprazolam 0.25 mg tablet 0.25 mg PO TID PRN anxiety 05/02/23 07/09/24 Unknown paroxetine HCl 12.5 mg 12.5 mg PO QAM 05/02/23 07/09/24 02/22/24 tablet,extended release 24 hr trazodone 100 mg tablet 100 mg PO HS 05/02/23 07/09/24 02/21/24 aspirin 81 mg chewable tablet 81 mg PO QAM 09/21/23 07/09/24 02/22/24 carvedilol 3.125 mg tablet 3.125 mg PO BID 09/21/23 07/09/24 02/22/24 docusate sodium 100 mg capsule 100 mg PO BID PRN Constipation #30 02/25/24 07/09/24 Unknown caps fluticasone propionate 50 2 spray NA DAILY PRN Nasal 02/25/24 07/09/24 Unknown mcg/actuation nasal congestion #16 grams spray,suspension nicotine 7 mg/24 hr daily 1 patch transdermal QAM #28 ea 05/04/24 07/09/24 Unk nown transdermal patch rosuvastatin 20 mg tablet 20 mg PO QAM #30 tabs 05/04/24 07/09/24 Unknown loratadine 10 mg tablet 10 mg PO QAM 07/03/24 07/09/24 Unknown amlodipine 5 mg tablet 10 mg (2 x 5 mg) PO QAM #0 tabs 07/06/24 07/09/24 02/22/24 pantoprazole 40 mg tablet,delayed 40 mg PO BID 30 days #60 tabs 07/06/24 07/09/24 Unknown release Active Medications Generic Name Dose Route Start Last Admin Trade Name Gilq PRN Reason Stop Dose Admin Alprazolam 0.25 mg 07/09/24 22:34 07/10/24 08:14 Alprazolam 0.25 Mg Tablet PO 08/08/24 22:33 0.25 mg TID PRN Administration anxiety Amlodipine Besylate 10 mg 07/10/24 09:00 07/10/24 08:00 Amlodipine Besylate 5 Mg Tab PO 08/09/24 08:59 10 mg QAM KEELY Administration Aspirin 81 mg 07/10/24 09:00 07/10/24 08:01 Aspirin 81 Mg Ectab PO 08/09/24 08:59 81 mg QAM KEELY Administration Carvedilol 3.125 mg 07/09/24 22:34 07/10/24 08:00 Carvedilol 3.125 Mg Tab PO 08/08/24 22:33 3.125 mg BID KEELY Administration Enoxaparin Sodium 40 mg 07/09/24 22:45 07/10/24 00:36 Enoxaparin Inj 40 Mg/0.4 Ml Syr SQ 08/08/24 22:44 40 mg HS KEELY Administration Ceftriaxone Sodium 1,000 mg in 50 mls @ 100 mls/hr 07/09/24 23:00 07/10/24 01:57 Rocephin IV 07/16/24 22:59 Infused Q24H KEELY Infusion Metronidazole 500 mg in 100 mls @ 100 mls/hr 07/09/24 22:45 07/10/24 14:45 Flagyl IV 07/16/24 22:44 Infused Q8 KEELY Infusion Protocol Loratadine 10 mg 07/10/24 09:00 07/10/24 08:00 Loratadine 10 Mg Tab PO 08/09/24 08:59 10 mg QAM KEELY Administration Miscellaneous 1 each 07/10/24 08:59 07/10/24 08:05 Remove Nicoderm Patch N/A 08/09/24 08:58 Not Given DAILY@[id number] KEELY Nicotine 1 patch 07/10/24 09:00 07/10/24 08:02 Nicotine 14 Mg/24 Hr Patch TD 08/09/24 08:59 1 patch QAM KEELY Administration Oxycodone HCl 5 mg 07/09/24 22:34 07/10/24 13:24 Oxycodone Hcl Ir 5 Mg Tab (Immediate Release) PO 07/23/24 22:33 5 mg Q4H PRN Administration Pain Pantoprazole Sodium 40 mg 07/09/24 22:34 07/10/24 08:01 Pantoprazole 40 Mg Tab PO 08/08/24 22:33 40 mg BID KEELY Administration Paroxetine HCl 12.5 mg 07/10/24 09:00 07/10/24 09:40 Paroxetine Hcl Controlled Rel 12.5 Mg Tabcr PO 08/09/24 08:59 Not Given QAM KEELY Polyethylene Glycol 17 gm 07/09/24 22:34 07/10/24 13:24 Polyethylene (Miralax) 17 Gm Pack PO 08/08/24 22:33 17 gm DAILY PRN Administration Constipation Rosuvastatin Calcium 20 mg 07/10/24 09:00 07/10/24 08:00 Rosuvastatin Calcium 20 Mg Tab PO 08/09/24 08:59 20 mg QAM KEELY Administration Trazodone HCl 100 mg 07/09/24 22:34 07/10/24 00:36 Trazodone Hcl 100 Mg Tab PO 08/08/24 22:33 100 mg HS KEELY Administration (6) COPD (chronic obstructive pulmonary disease) COPD type: COPD with acute exacerbation Qualified Code(s): J44.1 - Chronic obstructive pulmonary disease with (acute) exacerbation
[2024-07-10] MEDS: metroNIDAZOLE 500 MG TAB PO SCH (23:14)
[2024-07-11 07:34] VITALS: BP 113/61; PULSE 61; RESP 16; TEMP 97.9; O2SAT 98
[2024-07-11] MEDS: LACTULOSE SYRUP 20 GM/30 ML UDC PO ONE (09:12)
[2024-07-11] MEDS: cefUROXime axetil 500 MG TAB PO SCH (09:15)
[2024-07-11 09:19] LABS: BUN Creatinine Ratio 24.8 (10-20); Calcium 8.5 mg/dl (8.6-10.3); Creatinine Clr Calc Pharmacy 34.4 ml/min; Potassium 3.8 mmol/L (3.5-5.1)
--- NOTE | 2024-07-11 13:29 | Discharge Summary ---
Discharge Summary Date of Service July 11, 2024 Principal Dx & Hospital Course #1 = Principal Diagnosis (1) Cellulitis of right hand: (2) Cat bite of hand: (3) Uncontrolled hypertension: (4) Mesenteric artery stenosis: (5) Carotid artery disease: (6) COPD (chronic obstructive pulmonary disease): (7) Anxiety: Plan Ms. Chavis is a 73-year-old female with a past medical history of HTN, HLD, anxiety, depression, GERD, COPD, AAA with rapidly advancing cellulitis of the right hand due to a cat bite. Patient received over 24 hour of IV abx. Erythema resolved around wound. Wound supplies given to patient. Patient discharged with course of abx for animal bite with cefuroxime and flagyl given augmentin allergy #Cat bite c/b cellulitis Due to patient's numerous antibiotic allergies continue Rocephin and Flagyl for cat bite cellulitis Continue other outpatient medications as prescribed Anticipate if significant improvement of the cellulitis within the next 24 hours could be transition to oral antibiotics and discharged continue cefuroxime and flagyl q8h ten more days #Moderate stenosis of SMA # Aneurysmal dilatation of the proximal and the distal abdominal aorta. proximal abdominal aorta measuring 3.34 x4cm and the distal abdominal aorta measuring 2.85 x 2.68 cm. Will need routine OP follow up #Erosive gastropathy #Thick gastric folds pathology reviewed from prior admission with chronic gastritis noted Continue with PPI BID #Weight loss #Severe protein calorie malnutrition #Bruit on abdominal exam BMI 15.2 #Hypoglycemia potentially iso poor po intake, low glycogen reserve TSH and cortisol wnl Encourage PO intake A1C 5.2% #Muscoal nodule s/p biopsy found on EGD 07/04, focal intestinal metaplasia #Hypertension #chronic left ICA occlusion #Hypertrophic cardiomyopathy: Declined surgical intervention for occlusion, continue aspirin/carvedilol/amlodipine #COPD: -managed on albuterol as needed, not in acute exacerbation # HLD: Continue statin #anxiety: -Continue paroxetine/Xanax Notes For Next Care Provider Medication Changes From Visit cefuroxime 500mg bid 10 days flagyl q8 h 10 days Admission HPI Per Admitting Provider Patient is a 73-year-old female just recently discharged from [facility] after having diagnosis of some gastropathy and SMA stenosis. She reports that she has been doing well at home, however, she was getting her To take to the vet today and the cat bit her on her right hand. As the day went on the hand got more red, swollen and painful and came to the emergency room for evaluation. In the emergency room there is some venous streaking or concern she would not do well with outpatient therapy and was referred to our service for further evaluation. Time my evaluation patient states that the pain is little bit better with the morphine. She denies any fever or chills. And as mentioned has been doing well at home since her recent discharge. Has been eating better since she has been discharged. Admission Exam Per Admitting Provider Constitutional: Alert, mildly ill in appearance, nontoxic, frail, cachectic HEENT: Mucous membranes moist. Sclera clear Neck: Soft, no adenopathy Lungs: Clear to auscultation, decreased, no wheezes rales or rhonchi CV: S1-S2, regular, systolic murmur Abdomen: Soft, nontender, nondistended Extremities: No significant edema Musculoskeletal: Right hand thenar eminence and thumb, erythematous, swollen, tender. Evidence of puncture wounds on the thumb and thenar eminence as well as some cat scratches on hand and forearm. Some venous streaking up anterior forearm to the antecubital fossa Neuro: No focal deficits Psych: Cooperative, normal mood Discharge Exam Constitutional WD/WN, vitals as above Respiratory normal respiratory effort, lungs clear to auscultation Cardiovascular RRR, no murmur, no edema Skin venuous streaking resolved , swelling improved, clean puncture Updated Medication List Medication Instructions Recorded Confirmed Type albuterol sulfate 90 mcg/actuation 2 puff inhalation Q6H PRN 08/23/22 07/09/24 History aerosol inhaler Shortness Of Breath Or Wheezing alprazolam 0.25 mg tablet 0.25 mg PO TID PRN anxiety 05/02/23 07/09/24 History paroxetine HCl 12.5 mg 12.5 mg PO QAM 05/02/23 07/09/24 History tablet,extended release 24 hr trazodone 100 mg tablet 100 mg PO HS 05/02/23 07/09/24 History aspirin 81 mg chewable tablet 81 mg PO QAM 09/21/23 07/09/24 History carvedilol 3.125 mg tablet 3.125 mg PO BID 09/21/23 07/09/24 History docusate sodium 100 mg capsule 100 mg PO BID PRN Constipation #30 02/25/24 07/09/24 Rx caps fluticasone propionate 50 2 spray NA DAILY PRN Nasal 02/25/24 07/09/24 Rx mcg/actuation nasal congestion #16 grams spray,suspension nicotine 7 mg/24 hr daily 1 patch transdermal QAM #28 ea 05/04/24 07/09/24 Rx transdermal patch rosuvastatin 20 mg tablet 20 mg PO QAM #30 tabs 05/04/24 07/09/24 Rx loratadine 10 mg tablet 10 mg PO QAM 07/03/24 07/09/24 History amlodipine 5 mg tablet 10 mg (2 x 5 mg) PO QAM #0 tabs 07/06/24 07/09/24 Rx pantoprazole 40 mg tablet,delayed 40 mg PO BID 30 days #60 tabs 07/06/24 07/09/24 Rx release cefuroxime axetil 500 mg tablet 500 mg PO BID 10 days #20 tabs 07/11/24 Rx metronidazole 500 mg tablet 500 mg PO Q8 10 days #30 tabs 07/11/24 Rx Hospital Stay Data Consultations 07/09/24 18:47 ED Decision to Admit Stat Pending Results Patient Have Any Pending Studies at Discharge: No Discharge Instructions Given to Patient (Per Discharging Provider) You were admitted for infection due to cat bite You were started on antibiotics Continue cefuroxime 500mg two times a day, your next dose is this evening Continue metronidazole three times a day, Total Time Total Time Spent Total Time Spent (In Minutes): 35
--- NOTE | 2024-07-11 19:23 | Electrocardiogram Report ---
Test Reason : Blood Pressure : */* mmHG Vent. Rate : 72 BPM Atrial Rate : 72 BPM P-R Int : 168 ms QRS Dur : 72 ms QT Int : 396 ms P-R-T Axes : 68 44 84 degrees QTcB Int : 433 ms Normal sinus rhythm Possible Left atrial enlargement Cannot rule out Anterior infarct (cited on or before 03-Jul-2024) T wave abnormality, consider lateral ischemia Abnormal ECG When compared with ECG of 03-Jul-2024 09:20, ST less depressed in precordial leads Confirmed by Bob Daniels ([id number]) on 07/11/2024 7:22:48 PM Referred By: Confirmed By: Bob Daniels
--- OUTSIDE RECORDS SUMMARY | 2024-07-12 02:03 | External Medical Summary | Summary of Care ---
Author Name Unknown Organization [facility] Address [address] [place] [address] Phone [phone] Care Team Providers Care Preschool Adviser Name Role Phone Adriel Whitaker MD Primary Care Provider [phone]- [phone] Reason for Visit * Reason Onset Date Comments Hospital Follow-Up 07/09/2024 [facility] ([facility]) Encounter Details Date Type Department Care Team (Late st Contact Info) Description 07/09/2024 Telephone [facility] [address] [place] [address] Perri Luna, JP Hospital Follow-Up ([facility] ([facility])) Allergies Active Allergy Reactions Criticality Noted Date Comments Cisapride 11/05/1998 diarrhea Doxycycline 11/05/1998 diarrhea Macrolides And Ketolides 05/17/2000 zithromax, diarrhea Salicylates 11/05/1998 intol documented as of this encounter (statuses as of 07/10/2024) Medications Acetaminophen 500 MG Oral Tablet (Tylenol) [...] as of this encounter (statuses as of 07/10/2024) Active Problems Problem Noted Date Diagnosed Date [...] as of this encounter (statuses as of 07/10/2024) Resolved Problems Problem Noted Date Diagnosed Date [...] as of this encounter (statuses as of 07/10/2024) Immunizations Name Administration Dates Next Due Pneumococcal [...] 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, Date: 07/03/2024 Discharged to: Home, Date: 07/06/2024 Diagnosis driving hospitalization: Acute dehydration, AAA, Weakness 07/04/ EGD Patient referred back to ER for Cat bite per nurse triage. Will follow up in AM. Perri Luna RN documented in this encounter Plan of Treatment Upcoming Encounters Date Type Department Care Team (Late st Contact Info) Description 07/12/2024 3:00 PM EST [facility] [address] [place] [phone] Adriel Whitaker MD [address] [place] [id number] 08/08/2024 11:00 AM EDT Office Visit Hematology/Oncology [facility] [address] [facility] [place] [phone] Yosvany Moe MD [address] [facility] [place] [address] 09/05/2024 8:30 AM EDT Cardiac Studies Cardiac Studies, [facility] [address] [place] [address] 09/07/2024 1:00 PM EDT [facility] [address] [place] [phone] Adriel Whitaker MD [address] [place] [id number] Scheduled Procedures Name Priority Associated Diagnoses Date/Ti [...] Comments DISCUSS TOBACCO CESSATION (REFER TO SMARTSET #[id number]) 1950 Alpha-1 Antitrypsin 1970 Hepatitis C Screening [...] Advance Directives occurred with: Patient Care Teams Preschool Adviser Relationship Specialty Start Date End Date Adriel Whitaker MD [address] [place] [id number] PCP - General Family Medicine 10/20/17 documented as of this encounter
--- OUTSIDE RECORDS SUMMARY | 2024-07-12 02:03 | External Medical Summary | Summary of Care ---
Author Name Unknown Organization [facility] Address [address] [place] [address] Phone [phone] Care Team Providers Care Business Team Leader Name Role Phone Adriel Whitaker MD Primary Care Provider [phone]- [phone] Reason for Visit * Reason Onset Date Comments Hospital Follow-Up 07/09/2024 [facility] ([facility]) Encounter Details Date Type Department Care Team (Late st Contact Info) Description 07/09/2024 Telephone [facility] [address] [place] [address] Perri Luna, JP Hospital Follow-Up ([facility] ([facility])) Allergies Active Allergy Reactions [...] 07/10/2024) Immunizations Name Administration Dates Next Due Diptheria/Tetanus (Adult) 05/09/1990 Influenza, Whole Virus 02/20/1999 Pneumococcal Conjugate Vacc, 13 Valent (Prevnar) 03/08/2018 Pneumococcal Polysaccharide PPV23 (Pneumovax) 10/13/2006,03/04/1994 Seasonal Influenza Vac., MDV , IM, 0.5 mL (Fluzone) 01/31/2014,03/08/2011,02/07/2010,03/11,03/11/2005,02/20/2002,04/25/2001 ,04/18/2000 Seasonal Influenza, High Dos e, Trivalent, PF, [...] 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 Will follow up in AM. Perri Luna RN Follow up - patient admitted. [facility] not completed at this time. documented in this encounter Plan of Treatment Upcoming Encounters Date Type Department Care Team (Late st Contact Info) Description 07/12/2024 3:00 PM EST Office Visit [facility] [address] [facility] [place] [phone] Adriel Whitaker MD [address] [place] [id number] 08/08/2024 11:00 AM EDT Office Visit Hematology/Oncology [facility] [address] [facility] [place] [phone] Yosvany Moe MD [address] [facility] [place] [address] 09/05/2024 8:30 AM EDT Cardiac Studies Cardiac Studies, [facility] [address] [facility] [place] [address] 09/07/2024 1:00 PM EDT Office Visit [facility] Andreina [address] [place] [phone] Adriel Whitaker MD [address] [id number] Scheduled Procedures Name Priority Associated Diagnoses Date/Ti la COLONOSCOPY FLEXIBLE PROXIMAL DIAGNOSTIC Abdominal pain, generalized Abdominal pain, epigastric Loss of weight ESOPHAGOGASTRODUODENOSCOPY ( EGD), FLEXIBLE, TRANSORAL, DIAGNOSTIC Recall Abdominal pain, generalized Abdominal pain, epigastric Loss of weight COLONOSCOPY FLEXIBLE PROXIMAL DIAGNOSTIC Recall Abdominal pain, generalized Abdominal pain, epigastric Loss of weight Health Maintenance Due Date Last Done Comments DISCUSS TOBACCO CESSATION (REFER TO SMARTSET #[id number]) 1950 Alpha-1 Antitrypsin 1970 Hepatitis C Screening [...] Advance Directives occurred with: Patient Care Teams Business Team Leader Relationship Specialty Start Date End Date Adriel Whitaker MD [address] [place] [id number] PCP - General Family Medicine 10/20/17 documented as of this encounter
== END 2024-07-11 15:00 | disposition home or self-care (01) ==
LOC: ED 13:09 → EDINP 13:09 → SUATTDRO 19:41 → 3N 22:34

== ENCOUNTER 2024-12-19 13:39 | Observation (INO) ==
--- NOTE | 2024-12-19 14:14 | Emergency Department Note ---
Impression & Plan Recurrent falls, Age-related physical debility, Hypertension ED Provider Note NAME: YA RIVERA AGE: 74 SEX: F : 1950 ARRIVES VIA: Walk-In INFORMANT: Patient ED PROVIDER(S): Demetrio Cabral MD CHIEF COMPLAINT: Generalized weakness, recurrent falls. PLAN: Disposition: Admit MEDICAL DECISION MAKING: The patient is a pleasant 74-year-old woman with a past medical history of hypertension, hyperlipidemia, anxiety, depression, GERD, COPD, aortic aneurysm who presents to the Emergency Department via walk-in brought in by her son for evaluation of generalized weakness with recurrent falls at home over the past week where it was felt that they were unable to safely care for her. Patient had a fall prior to coming Emergency Department where she lost her balance falling backwards onto her tailbone. She denies any fall with her head strike today but reports she may have hit her head at times. Patient is not on anticoagulation. Patient reports she lost her balance today but other times feels she may have near fainting episodes. Patient denies any head, neck, chest, back pain. She reports lower abdominal pain which is chronic. She denies any fevers, chills, cough congestion, GI or symptoms. Trauma alert was activated from triage due to report of recurrent falls though patient exhibits no evidence of traumatic injuries. On my evaluation the patient is no distress, afebrile with stable vital signs. She appears clinically dry. Head is atraumatic. There is no midline CTL spine tenderness with patient or step-offs. She denies any radicular symptoms. There are no distracting injuries. Thus, C-spine was cleared by exam though CT imaging obtained out of caution for additional reassurance. Pelvis is stable and hips with full range of motion bilaterally. There is mild superficial skin excoriation of the lower abdominal wall without surrounding erythema warmth or tenderness. EKG without overt acute ischemia. CXR negative for acute cardiopulmonary process per my personal preliminary review/interpretation. WBC, hemoglobin and platelets within normal limits. Chemistry without metabolic acidosis. Electrolytes LFTs unremarkable. High-sensitivity troponin 10.3, within normal limits. Lipase is normal. TSH within limits. UA without evidence of infection. CT of the head, C-spine, chest and abdomen pelvis were performed and were negative for acute abnormalities. Patient's known thoracic aortic aneurysm is described as progressed when compared to 2022 but change is minimal when compared to CT of the abdomen pelvis from November. Given the patient's generalized weakness with recurrent falls patient was referred to the hospital service for further management and likely PT/OT evaluation. Case was discussed [place] Iniguez, [facility] [place], who will evaluate the patient for admission. Further management per admitting team. Triage Nursing notes reviewed and agree them. Prior/external medical records reviewed Vital Signs: reviewed Differential diagnosis: Infection, dehydration, metabolic abnormality, hypo/hyperglycemia, electrolyte disturbance, anemia, hypoxia, cardiac sources, intracerebral event, toxicologic, neurologic, as well as other pathologies. ER treatment provided: See below. Diagnostics interpreted by me: ECG: Normal sinus rhythm, 79 bpm, no ectopy, LVH, nonspecific T wave flattening inferiorly, no overt ST elevation or depression QTc 443, QRS 72 Cardiac Monitoring: An order for continuous cardiac monitoring was placed and demonstrated normal sinus rhythm, 79 bpm, no ectopy. Laboratory studies: See below Imaging studies: See below Consultation(s): Case was discussed with LEILA Dangelo hospitalist, who will evaluate the patient for admission. HPI: Per MDM. ROS: See above HPI for pertinent positives & negatives. A total of 10 systems reviewed and were otherwise negative. VITALS:See Below PHYSICAL EXAMINATION: Primary Survey Airway: Intact Breathing: Normal, breath sounds equal bilaterally Circulation: Skin warm, distal pulses 2+, capillary refill less than 2 seconds Disability Pupils: Equal and reactive to light. GCS: 15, E = 5 V=5 M= 5 Motor Function: Moves all extremities. Sensory: No deficits Secondary Survey GEN: Well developed and well-nourished HEAD: Normocephalic, atraumatic. EYES: Pupils round reactive to light, conjunctiva clear, extraocular movements intact, no raccoons eyes ENT: No fluid in external acoustic canals, no hemotympanum, no domingo's sign, nares patent, no septal hematoma, oropharynx clear NECK: No JVD, midline trachea, No midline tenderness to palpation or step-offs. HEART: Regular rate and rhythm LUNGS: Clear to auscultation bilaterally. CHEST: Chest wall non-tender, no bruising/deformity ABD: No Guidry-Young's or Harrogate's sign, soft, non-tender, no rebound or guarding, mild superficial skin excoriation of the lower abdominal wall without surrounding erythema warmth or tenderness. PELVIS: Stable to rock BACK: No step offs or deformities, T-L spine non tender EXT: 2+ global pulses, moving all extremities well, +5/5 muscle strength globally NEURO: Normal sensorium. Cranial nerves II-XII grossly intact. 5/5 strength and SILT x 4 extremities. 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) Carotid artery disease (Chronic) Hypertrophic cardiomyopathy (Chronic) Recurrent falls (Chronic) Anxiety (Chronic) Medical History COVID-19 Sigmoid diverticulitis Diverticulitis Uncontrolled hypertension Acute dehydration Weakness AAA (abdominal aortic aneurysm) Surgical History S/P tubal ligation Family History Other Diabetes Social History Smoking Status: Current every day smoker Tobacco Type: Cigarettes packs per day: 0.5; Cigarettes Per Day: 1/4 PPD; Second Hand Exposure: No; Do You Dip or Chew Tobacco: No; Hx Alcohol Use: No Hx Substance Use: No Preferred Language: Lebanese Communication Ability: Effective Senior Manufacturing Supervisor Required: No Beliefs That Will Affect Care: None Current Living Situation: Spouse Current Living Situation Comment: lives in 2 story home with Feels Safe at Home: Yes Assistive Devices: None Allergies Allergies Allergy/AdvReac Type Severity Reaction Status Date / Time salicylates AdvReac Intermediate INTOLERANCE Verified 12/19/24 18:15 Home Meds Home Medications Medication Instructions Recorded Confirmed albuterol sulfate 90 mcg/actuation 2 puff inhalation Q6H PRN 08/23/22 12/19/24 aerosol inhaler Shortness Of Breath Or Wheezing alprazolam 0.25 mg tablet 0.25 mg PO TID PRN anxiety 05/02/23 12/19/24 paroxetine HCl 12.5 mg 12.5 mg PO QAM 05/02/23 12/19/24 tablet,extended release 24 hr trazodone 100 mg tablet 100 mg PO HS 05/02/23 12/19/24 aspirin 81 mg chewable tablet 81 mg PO QAM 09/21/23 12/19/24 carvedilol 3.125 mg tablet 3.125 mg PO AMHS 09/21/23 12/19/24 amlodipine 5 mg tablet 5 mg PO QAM 12/19/24 12/19/24 rosuvastatin 20 mg tablet 20 mg PO HS 12/19/24 12/19/24 Previous Rx's Medication Instructions Recorded docusate sodium 100 mg capsule 100 mg PO BID PRN Constipation #30 02/25/24 caps fluticasone propionate 50 2 spray NA DAILY PRN Nasal 02/25/24 mcg/actuation nasal congestion #16 grams spray,suspension pantoprazole 40 mg tablet,delayed 40 mg PO BID #60 tabs 11/14/24 release Results & Data (ED) Vital Signs Vital Signs - 24 hr 12/19/24 13:40 12/19/24 13:47 12/19/24 13:56 Temperature 36.8 C 36.8 C Temperature Source Temporal Artery Scan Pulse Rate 90 80 77 Pulse Rate [Finger] Pulse Rate from SpO2 Sensor Pulse Strength [Finger] Pulse Strength [Right Femoral] Normal Respiratory Rate 17 16 Respiratory Effort / Characteristics Respiratory Depth Respiratory Pattern Blood Pressure 119/78 150/77 H Blood Pressure [Right Arm] Blood Pressure Mean 91 Blood Pressure Mean [Right Arm] Pulse Oximetry 98 97 Oxygen Delivery Method Room Air Room Air Oxygen Flow Rate 0 Sepsis Recent Fever Within 48 Hours No Sepsis New/Unexplained Change in Mental Status N/A Sepsis Action Taken by Nursing No Action Required 12/19/24 14:03 12/19/24 14:27 12/19/24 14:46 Temperature Temperature Source Pulse Rate 79 72 Pulse Rate [Finger] 72 Pulse Rate from SpO2 Sensor 79 73 Pulse Strength [Finger] Pulse Strength [Right Femoral] Respiratory Rate 20 20 18 Respiratory Effort / Characteristics Respiratory Depth Respiratory Pattern Blood Pressure 137/76 192/101 H Blood Pressure [Right Arm] 192/101 H Blood Pressure Mean 96 131 Blood Pressure Mean [Right Arm] 131 Pulse Oximetry 98 98 98 Oxygen Delivery Method Room Air Oxygen Flow Rate Sepsis Recent Fever Within 48 Hours Sepsis New/Unexplained Change in Mental Status Sepsis Action Taken by Nursing 12/19/24 14:57 12/19/24 15:15 12/19/24 15:40 Temperature 36.8 C Temperature Source Oral Pulse Rate 73 73 Pulse Rate [Finger] 76 Pulse Rate from SpO2 Sensor 74 73 Pulse Strength [Finger] Normal Pulse Strength [Right Femoral] Respiratory Rate 18 18 18 Respiratory Effort / Characteristics Non-Labored Spontaneous Respiratory Depth Normal Respiratory Pattern Regular Blood Pressure 192/101 H 167/89 H Blood Pressure [Right Arm] 160/95 H Blood Pressure Mean 131 115 Blood Pressure Mean [Right Arm] 116 Pulse Oximetry 97 98 92 Oxygen Delivery Method Room Air Oxygen Flow Rate Sepsis Recent Fever Within 48 Hours Sepsis New/Unexplained Change in Mental Status Sepsis Action Taken by Nursing 12/19/24 15:54 12/19/24 15:55 12/19/24 16:00 Temperature Temperature Source Pulse Rate 72 Pulse Rate [Finger] 72 Pulse Rate from SpO2 Sensor Pulse Strength [Finger] Pulse Strength [Right Femoral] Respiratory Rate 20 16 Respiratory Effort / Characteristics Respiratory Depth Respiratory Pattern Blood Pressure 200/163 H 174/89 H Blood Pressure [Right Arm] 140/82 Blood Pressure Mean 175 135 Blood Pressure Mean [Right Arm] 101 Pulse Oximetry 96 Oxygen Delivery Method Room Air Oxygen Flow Rate Sepsis Recent Fever Within 48 Hours Sepsis New/Unexplained Change in Mental Status Sepsis Action Taken by Nursing 12/19/24 16:00 12/19/24 16:06 12/19/24 17:03 Temperature Temperature Source Pulse Rate 73 70 Pulse Rate [Finger] 74 Pulse Rate from SpO2 Sensor 74 71 Pulse Strength [Finger] Normal Pulse Strength [Right Femoral] Respiratory Rate 17 19 19 Respiratory Effort / Characteristics Non-Labored Spontaneous Respiratory Depth Normal Respiratory Pattern Regular Blood Pressure 180/95 H 140/82 Blood Pressure [Right Arm] 180/95 H Blood Pressure Mean 123 101 Blood Pressure Mean [Right Arm] 123 Pulse Oximetry 97 96 98 Oxygen Delivery Method Room Air Oxygen Flow Rate Sepsis Recent Fever Within 48 Hours Sepsis New/Unexplained Change in Mental Status Sepsis Action Taken by Nursing Laboratory Data Attestation: I reviewed the patient's lab results. 12/19/24 13:51 12/19/24 13:51 Lab Results 12/19/24 12/19/24 Range/Units 13:51 14:44 WBC 9.37 (4.8-10.8) K/ul RBC 3.97 L (4.20-5.40) M/uL Hgb 12.6 (12.0-16.0) g/dl Hct 36.8 L (37.0-47.0) % MCV 92.7 (80.0-100.0) fL MCH 31.7 (25.0-34.0) pg MCHC 34.2 (32.0-36.0) g/dL RDW Std Deviation 40.6 (36.4-46.3) fL RDW Coeff of Yamile 11.9 (11.5-14.5) % Plt Count 145 (130-400) K/uL MPV 11.0 (9.4-12.4) fL Immature Gran % (Auto) 0.2 % Neut % (Auto) 77.9 % Lymph % (Auto) 13.8 % [place] % (Auto) 7.4 % Eos % (Auto) 0.4 % Baso % (Auto) 0.3 % Neut # (Auto) 7.30 H (1.40-6.50) K/uL Lymph # (Auto) 1.29 (1.20-3.40) K/uL Stan[place] # (Auto) 0.69 H (0.11-0.59) K/uL Eos # (Auto) 0.04 (0.00-0.50) K/uL Baso # (Auto) 0.03 (0.00-0.20) K/uL Immature Gran # (Auto) 0.02 (0.01-0.20) K/uL PT 11.0 (9.0-12.0) Seconds INR 1.0 (0.9-1.1) Sodium 139 (136-145) mmol/L Potassium 3.8 (3.5-5.1) mmol/L Chloride 102 (98-107) mmol/L Carbon Dioxide 30 (21-32) mmol/L Anion Gap 7 (3-11) BUN 35 H (6-23) mg/dl Creatinine 1.18 (0.6-1.2) mg/dl Est Cr Clr Drug Dosing 28.7 ml/min eGFR 49.07 BUN/Creatinine Ratio 29.7 H (10-20) Glucose 119 H (70-99(Fasting)) mg/dl Calcium 8.9 (8.6-10.3) mg/dl Phosphorus 3.5 (2.5-4.9) mg/dl Magnesium 2.1 (1.7-2.4) mg/dl Total Bilirubin 0.4 (0.2-1.0) mg/dl AST 28 (13-39) U/L ALT 26 (7-52) U/L Alkaline Phosphatase 55 (34-104) U/L Total Creatine Kinase 179 (26-192) U/L Troponin I High Sens 10.3 (0-14) pg/ml Total Protein 6.5 (6.0-8.3) gm/dl Albumin 3.8 (3.4-5.0) gm/dl Globulin 2.7 (2.5-4.0) gm/dl Albumin/Globulin Ratio 1.4 (0.9-2) Lipase 53 (11-82) U/L TSH 0.587 (0.300-4.500) uIu/ml Urine Color Yellow Urine Appearance Clear (Clear) Urine pH 7.5 (4.5-7.5) Ur Specific [place] 1.014 (1.000-1.030) Urine Protein Trace H (Negative) Urine Glucose (UA) Negative (Negative) Urine Ketones Negative (Negative) Urine Blood Negative (Negative) Urine Nitrite Negative (Negative) Urine Bilirubin Negative (Negative) Urine Urobilinogen Negative (Negative) Ur Leukocyte Esterase Negative (Negative) Urine WBC (Auto) 0-5 (0-5) /hpf Urine RBC (Auto) 0-2 (0-2) /hpf U Hyaline Cast (Auto) 0-2 (0-2) /lpf U Epithel Cells (Auto) 0-2 (0-2) /hpf Urine Bacteria (Auto) None Seen (None Seen) Urine Comment Administered Medications Acetaminophen (Acetaminophen 500 Mg Tab) 1,000 mg PO Q8H KEELY Stop: 01/18/25 17:59 Last Admin: 12/19/24 18:07 Dose: 1,000 mg Documented By: ARS Carvedilol (Carvedilol 3.125 Mg Tab) 3.125 mg PO AMHS KEELY Stop: 01/18/25 20:59 Last Admin: 12/19/24 21:30 Dose: 3.125 mg Documented By: MILAGROS Pantoprazole Sodium (Pantoprazole 40 Mg Tab) 40 mg PO BID KEELY Stop: 01/18/25 20:59 Last Admin: 12/19/24 21:30 Dose: 40 mg Documented By: MILAGROS Rosuvastatin Calcium (Rosuvastatin Calcium 20 Mg Tab) 20 mg PO HS KEELY Stop: 01/18/25 20:59 Last Admin: 12/19/24 21:30 Dose: 20 mg Documented By: MILAGROS Trazodone HCl (Trazodone Hcl 100 Mg Tab) 100 mg PO HS KEELY Stop: 01/18/25 20:59 Last Admin: 12/19/24 21:30 Dose: 100 mg Documented By: MILAGROS Discontinued Medications Sodium Chloride (Nss) 500 mls @ 999 mls/hr IV .Q31M ONE Stop: 12/19/24 15:34 Last Infusion: 12/19/24 15:40 Dose: Infused Documented By: Admin: 12/19/24 15:07 Dose: 999 mls/hr Documented By: ROSALBA Acetaminophen (Ofirmev) 1,000 mg in 100 mls @ 400 mls/hr IV NOW STA Stop: 12/19/24 15:18 Last Infusion: 12/19/24 15:40 Dose: Infused Documented By: Admin: 12/19/24 15:09 Dose: 400 mls/hr Documented By: ROSALBA Ioversol (Optiray 320 100ml) 90 ml IV ONCE ONE Stop: 12/19/24 14:33 Last Admin: 12/19/24 14:32 Dose: 90 ml Documented By: HUSEYIN Imaging Data Radiologist's Impression: Chest X-Ray 12/19/24 14:11 XR chest 1V portable CLINICAL HISTORY: weakness, recurrent falls COMPARISON STUDY: 11/14/2024 FINDINGS: Heart size and pulmonary vasculature are normal. No consolidation or pleural effusion. No pneumothorax. IMPRESSION: No acute findings. ACT 112: Negative or not required by law. Electronically signed by: Jimbo Rojo M.D. 12/19/2024 2:28 PM Abdomen/Pelvis CT 12/19/24 14:[address] WITH IV CONTRAST CT DOSE: 1556 HISTORY: weakness, recurrent falls TECHNIQUE: Multiaxial CT images of the abdomen and pelvis were performed following the IV administration of 90 cc of Optiray, A dose lowering technique was utilized adhering to the principles of ALARA. COMPARISON STUDY: 11/14/2024 FINDINGS: ABDOMEN: Liver, gallbladder, spleen, pancreas, adrenal glands, and kidneys show no evidence of acute injury. There are a few stable tiny cysts at the liver. There is stable mild to moderate prominence of the left renal collecting system with abrupt transition to normal caliber at the proximal left ureter suggesting left UPJ obstruction. Stable 2 cm oval right adrenal nodule. Infrarenal abdominal aortic aneurysm measures 3.2 cm greatest diameter, stable. There is diffuse atherosclerosis. No evidence of abdominal aortic injury seen. Pelvis: Uterus and adnexal regions are grossly unremarkable. Urinary bladder is decompressed. There is extensive sigmoid diverticulosis. No acute diverticulitis. No bowel inflammation or obstruction is seen. No free fluid or free air. Osseous structures: There is osteopenia. There are a few stable bone islands. Stable mild height loss at the L5 vertebral body. No acute fractures seen at the visualized osseous structures. IMPRESSION: No acute injury seen at the abdomen or pelvis. Otherwise as described. ACT 112: Negative or not required by law. The above report was generated using voice recognition software. It may contain grammatical, syntax or spelling errors. Electronically signed by: Jimbo Rojo M.D. 12/19/2024 3:[address] 12/19/24 14:12 CT cervical spine wo con CLINICAL HISTORY: 74 years-old Female with weakness, recurrent falls. Acute head and neck injury status post fall COMPARISON: Head CT of same day, CT cervical spine 12/25/2023 TECHNIQUE: Multiple axial CT images of the cervical spine were obtained without contrast. A dose lowering technique was utilized adhering to the principles of ALARA. FINDINGS: No fractures.. Prevertebral soft tissues and the C1-C2 interval are intact. No pneumothorax. Extensive calcified plaque within the carotid arteries. Emphysema is noted. Moderate to severe facet degenerative changes most pronounced within the upper to mid cervical spine. There is 2 mm of anterolisthesis of C4 on C5. This is likely due to the long-standing degenerative change. Mild disc space narrowing at C4-C5 and C5-C6. Moderate disc space narrowing at C6-C7. Pulmonary emphysema. No pneumothorax. Subcentimeter thyroid nodules. IMPRESSION: No acute cervical spine fracture or subluxation identified. ACT 112: Negative or not required by law. The above report was generated using voice recognition software. It may contain grammatical, syntax or spelling errors. Electronically signed by: Olu Villagran M.D. 12/19/2024 2:[address] 12/19/24 14:[address] WITH CONTRAST CT DOSE: 1556.47 mGy.cm HISTORY: weakness, recurrent falls TECHNIQUE: Multiaxial CT images of the chest were performed following the IV administration of 90 cc of Optiray. A dose lowering technique was utilized adhering to the principles of ALARA. COMPARISON STUDY: 08/23/2022 FINDINGS: There are mild airway secretions. There is mild emphysema. There is no pulmonary contusion or pleural effusion. No pneumothorax. There are few stable tiny thyroid nodules. No enlarged adenopathy. No mediastinal hematoma seen. There is diffuse atherosclerotic plaque at the aorta. There is aneurysmal dilatation of the distal thoracic aorta measuring 4.6 cm greatest AP dimension, progressive. No thoracic aortic dissection or injury seen. No acute fracture seen at the visualized osseous structures. Stable stenosis proximal left subclavian artery. IMPRESSION: 1. No acute injury seen in the chest. 2. Progressive distal thoracic aortic aneurysm. ACT 112: Positive. There are findings on this exam that require communication between the performing entity and the patient following Patient Test Result Information Act ([place] Act 112) guidelines. Electronically signed by: Jimbo Rojo M.D. 12/19/2024 3:[address] 12/19/24 14:12 CT SCAN OF THE BRAIN WITHOUT IV CONTRAST CLINICAL HISTORY: Head trauma. Syncope. COMPARISON STUDY: Head CT 05/02/2024. MRI the brain dated 05/03/2024 TECHNIQUE: Unenhanced axial CT scan of the brain was performed from the vertex to the skull base. A dose lowering technique was utilized adhering to the principles of ALARA. CT DOSE: FINDINGS: No intra or extra-axial mass lesions are visualized. There is no CT evidence of acute cortical infarction. There is bilateral basal ganglion calcification. There is no evidence of acute hemorrhage. Mild white matter hypodensities are likely small vessel basis. There is no evidence of hydrocephalus. There are no air-fluid levels in the paranasal sinuses. No calvarial fractures are visualized. IMPRESSION: No acute intracranial findings. ACT 112: Negative or not required by law. Electronically signed by: Marc Venegas M.D. 12/19/2024 2:57 PM Discharge Plan Visit Data Chief Complaint: Trauma Stated Complaint: FALLING/WEAK/TIRED/STOMACH ED Provider: Demetrio Cabral Discharge Problem: Recurrent falls, Age-related physical debility, Hypertension Patient Disposition: Admitted As Inpatient Condition: Fair Discharge Instructions Interventions: ED Discharge Assessment Last Done: 12/19/24 19:51 Discharge Problem: Hypertension Qualifiers: Hypertension type: unspecified Qualified Code(s): I10 - Essential (primary) hypertension
[2024-12-19 14:25] LABS: Hematocrit (blood only) 36.8 % (37.0-47.0); Hemoglobin 12.6 g/dl (12.0-16.0); Immature Granulocytes # (auto) 0.02 K/uL (0.01-0.20); Immature Granulocytes % (auto) 0.2 %; Mean Corpuscular Hemoglobin 31.7 pg (25.0-34.0); Mean Corpuscular Volume 92.7 fL (80.0-100.0); Platelet Count 145 K/uL (130-400); RDW Standard Deviation 40.6 fL (36.4-46.3); Red Blood Count 3.97 M/uL (4.20-5.40); White Blood Count 9.37 K/ul (4.8-10.8)
--- NOTE | 2024-12-19 14:29 | XRay Report ---
XR chest 1V portable CLINICAL HISTORY: weakness, recurrent falls COMPARISON STUDY: 11/14/2024 FINDINGS: Heart size and pulmonary vasculature are normal. No consolidation or pleural effusion. No p neumothorax. IMPRESSION: No acute findings. ACT 112: Negative or not required by law. Electronically signed by: Jimbo Rojo M.D. 12/19/2024 2:28 PM
[2024-12-19] MEDS: OPTIRAY 320 100ml IV ONE (14:32)
[2024-12-19 14:45] LABS: Alanine Aminotransferase 26.0 U/L (7-52); Albumin Globulin Ratio 1.4 (0.9-2); Alkaline Phosphatase 55.0 U/L (34-104); Anion Gap 7.0 (3-11); Bilirubin,Total 0.4 mg/dl (0.2-1.0); Blood Urea Nitrogen 35.0 mg/dl (6-23); Calcium 8.9 mg/dl (8.6-10.3); Carbon Dioxide 30.0 mmol/L (21-32); Chloride 102.0 mmol/L (98-107); Creatine Kinase 179.0 U/L (26-192); Creatinine Clr Calc Pharmacy 28.7 ml/min; Globulin 2.7 gm/dl (2.5-4.0); Glucose 119.0 mg/dl (70-99(Fasting)); Lipase 53.0 U/L (11-82); Magnesium 2.1 mg/dl (1.7-2.4); Potassium 3.8 mmol/L (3.5-5.1); Sodium 139.0 mmol/L (136-145); Total Protein 6.5 gm/dl (6.0-8.3)
[2024-12-19 14:56] LABS: INR 1.0 (0.9-1.1); Prothrombin Time 11.0 Seconds (9.0-12.0)
--- NOTE | 2024-12-19 14:58 | CT Scan Report ---
CT SCAN OF THE BRAIN WITHOUT IV CONTRAST CLINICAL HISTORY: Head trauma. Syncope. COMPARISON STUDY: Head CT 05/02/2024. MRI the brain dated 05/03/2024 TECHNIQUE: Unenhanced axial CT scan of the brain was performed from the vertex to the skull base. A dose lowering technique was utilized adhering to the principles of ALARA. CT DOSE: FINDINGS: No intra or extra-axial mass lesions are visualized. There is no CT evidence of acute cortical infarc tion. There is bilateral basal ganglion calcification. There is no evidence of acute hemorrhage. Mild white matter hypodensities are likely small vessel basis. There is no evidence of hydrocephalus. There are no air-fluid levels in the paranasal sinuses. No calvarial fractures are visualized. IMPRESSION: No acute intracranial findings. ACT 112: Negative or not required by law. Electronically signed by: Marc Venegas M.D. 12/19/2024 2:57 PM
--- NOTE | 2024-12-19 14:58 | CT Scan Report ---
CT cervical spine wo con CLINICAL HISTORY: 74 years-old Female with weakness, recurrent falls. Acute head and neck injury sta tus post fall COMPARISON: Head CT of same day, CT cervical spine 12/25/2023 TECHNIQUE: Multiple axial CT images of the cervical spine were obtained without contrast. A dose low ering technique was utilized adhering to the principles of ALARA. FINDINGS: No fractures.. Prevertebral soft tissues and the C1-C2 interval are intact. No pneumothorax . Extensive calcified plaque within the carotid arteries. Emphysema is noted. Moderate to severe face t degenerative changes most pronounced within the upper to mid cervical spine. There is 2 mm of anter olisthesis of C4 on C5. This is likely due to the long-standing degenerative change. Mild disc space narrowing at C4-C5 and C5-C6. Moderate disc space narrowing at C6-C7. Pulmonary emphysema. No pneumothorax. Subcentimeter thyroid nodules. IMPRESSION: No acute cervical spine fracture or subluxation identified. ACT 112: Negative or not required by law. The above report was generated using voice recognition software. It may contain grammatical, syntax o r spelling errors. Electronically signed by: Olu Villagran M.D. 12/19/2024 2:56 PM
[2024-12-19 15:00] LABS: Thyroid Stimulating Hormone 0.587 uIu/ml (0.300-4.500)
--- NOTE | 2024-12-19 15:01 | CT Scan Report ---
CHEST CT WITH CONTRAST CT DOSE: 1556.47 mGy.cm HISTORY: weakness, recurrent falls TECHNIQUE: Multiaxial CT images of the chest were performed following the IV administration of 90 cc of Optiray. A dose lowering technique was utilized adhering to the principles of ALARA. COMPARISON STUDY: 08/23/2022 FINDINGS: There are mild airway secretions. There is mild emphysema. There is no pulmonary contusion or pleural effusion. No pneumothorax. There are few stable tiny thyroid nodules. No enlarged adenopat hy. No mediastinal hematoma seen. There is diffuse atherosclerotic plaque at the aorta. There is aneu rysmal dilatation of the distal thoracic aorta measuring 4.6 cm greatest AP dimension, progressive. N o thoracic aortic dissection or injury seen. No acute fracture seen at the visualized osseous structu res. Stable stenosis proximal left subclavian artery. IMPRESSION: 1. No acute injury seen in the chest. 2. Progressive distal thoracic aortic aneurysm. ACT 112: Positive. There are findings on this exam that require communication between the performing entity and the patient following Patient Test Result Information Act ([place] Act 112) guidelines. Electronically signed by: Jimbo Rojo M.D. 12/19/2024 3:00 PM
[2024-12-19] MEDS: SODIUM CHLORIDE 0.9% 500 ML IV ONE (15:07)
[2024-12-19] MEDS: ACETAMINOPHEN 1,000 MG/100 ML VIAL IV STA (15:09)
--- NOTE | 2024-12-19 15:09 | CT Scan Report ---
ABDOMEN AND PELVIS CT WITH IV CONTRAST CT DOSE: 1556 HISTORY: weakness, recurrent falls TECHNIQUE: Multiaxial CT images of the abdomen and pelvis were performed following the IV administrat ion of 90 cc of Optiray, A dose lowering technique was utilized adhering to the principles of ALARA. COMPARISON STUDY: 11/14/2024 FINDINGS: ABDOMEN: Liver, gallbladder, spleen, pancreas, adrenal glands, and kidneys show no evidence of acute injury. There are a few stable tiny cysts at the liver. There is stable mild to moderate prominence o f the left renal collecting system with abrupt transition to normal caliber at the proximal left uret er suggesting left UPJ obstruction. Stable 2 cm oval right adrenal nodule. Infrarenal abdominal aorti c aneurysm measures 3.2 cm greatest diameter, stable. There is diffuse atherosclerosis. No evidence o f abdominal aortic injury seen. Pelvis: Uterus and adnexal regions are grossly unremarkable. Urinary bladder is decompressed. There i s extensive sigmoid diverticulosis. No acute diverticulitis. No bowel inflammation or obstruction is seen. No free fluid or free air. Osseous structures: There is osteopenia. There are a few stable bone islands. Stable mild height loss at the L5 vertebral body. No acute fractures seen at the visualized osseous structures. IMPRESSION: No acute injury seen at the abdomen or pelvis. Otherwise as described. ACT 112: Negative or not required by law. The above report was generated using voice recognition software. It may contain grammatical, syntax o r spelling errors. Electronically signed by: Jimbo Rojo M.D. 12/19/2024 3:06 PM
[2024-12-19 15:10] LABS: Appearance Urine Clear (Clear); Bacteria Urine Automated None Seen (None Seen); Cast Urine Automated 0-2 /lpf (0-2); Epithelial Cell Urine Auto 0-2 /hpf (0-2); Glucose Urine UA Negative (Negative); RBC Urine Automated 0-2 /hpf (0-2); WBC Urine Automated 0-5 /hpf (0-5)
--- NOTE | 2024-12-19 15:43 | Electrocardiogram Report ---
Test Reason : Blood Pressure : */* mmHG Vent. Rate : 79 BPM Atrial Rate : 79 BPM P-R Int : 170 ms QRS Dur : 72 ms QT Int : 380 ms P-R-T Axes : -20 -10 -34 degrees QTcB Int : 435 ms Normal sinus rhythm Minimal voltage criteria for LVH, may be normal variant Septal infarct (cited on or before 03-Jul-2024) Inferior infarct , age undetermined Abnormal ECG When compared with ECG of 14-Nov-2024 10:24, Inferior infarct is now Present Non-specific change in ST segment in Inferior leads ST more elevated in Anterior leads Nonspecific T wave abnormality now evident in Inferior leads Confirmed by Bandar May ([id number]) on 12/19/2024 3:43:16 PM Referred By: REFERRED SELF Confirmed By: Bandar May
[2024-12-19] MEDS: ACETAMINOPHEN 500 MG TAB PO SCH (18:07)
--- NOTE | 2024-12-19 18:17 | History & Physical Report ---
Date of Service December 19, 2024 Assessment & Plan (1) Age-related physical debility: (2) Frailty syndrome in geriatric patient: (3) Mesenteric artery stenosis: (4) Simple chronic bronchitis: (5) Recurrent falls: Plan In summary this is a 74-year-old female whose admitted for progressive physical debility and frailty in a geriatric patient, complicated by unintentional weight loss. #Age-related physical debility and frailty syndrome in geriatric patient // Progressive unintentional weight loss // Mesenteric artery stenosis Patient presents with recurrent falls at home, likely consequential of progressive muscle atrophy due to poor appetite and unintentional weight loss in the setting of mesenteric artery stenosis; furthermore, the patient's home medication regimen is concerning in geriatric patient specifically with regard to the paroxetine due to the adverse effects noted in this patient population; it will be continued during her hospitalization due to the risk of precipitous withdraw considering a short half-life; the patient's established mesenteric artery stenosis could also be contributing to their progressive weight loss and abdominal discomfort, though their endorse abdominal pain is not consistent with typical pain associated with mesenteric artery stenosis/insufficiency PT/OT consulted Dietitian consulted #Barretts esophagus Continue pantoprazole #Hypertension // Hyperlipidemia // Coronary and peripheral vascular disease Chronic conditions; continue home medication regimen DVT PPx: start SCDs History of Present Illness Chief Complaint: Recurrent falls and weakness Primary Care Provider: Adriel Whitaker MD Ms. Chavis is a 74-year-old female whose active medical conditions include Barretts esophagus, mesenterric artery stenosis, peripheral vascular disease, hyperlipidemia, simple chronic bronchitis among other chronic conditions who presented to the [facility] accompanied by their spouse due to recurrent falls at home associated with weakness. The patient describes difficulty ambulating around their home due to leg weakness which has been progressive, but not precipitous. They deny any ataxic symptoms, asymmetric weakness, peripheral paresthesia or loss of sensation. Further, they deny any associated chest pain, exertional dyspnea, palpitations associated with these falls. The patient is unsure of any loss of consciousness associated with these falls, but denies any significant trauma from these falls. Allergies Allergy/AdvReac Type Severity Reaction Status Date / Time salicylates AdvReac Intermediate INTOLERANCE Verified 12/19/24 18:15 Home Medications Medication Instructions Recorded Confirmed Type albuterol sulfate 90 mcg/actuation 2 puff inhalation Q6H PRN 08/23/22 12/19/24 History aerosol inhaler Shortness Of Breath Or Wheezing alprazolam 0.25 mg tablet 0.25 mg PO TID PRN anxiety 05/02/23 12/19/24 History paroxetine HCl 12.5 mg 12.5 mg PO QAM 05/02/23 12/19/24 History tablet,extended release 24 hr trazodone 100 mg tablet 100 mg PO HS 05/02/23 12/19/24 History aspirin 81 mg chewable tablet 81 mg PO QAM 09/21/23 12/19/24 History carvedilol 3.125 mg tablet 3.125 mg PO AMHS 09/21/23 12/19/24 History docusate sodium 100 mg capsule 100 mg PO BID PRN Constipation #30 02/25/24 12/19/24 Rx caps fluticasone propionate 50 2 spray NA DAILY PRN Nasal 02/25/24 12/19/24 Rx mcg/actuation nasal congestion #16 grams spray,suspension pantoprazole 40 mg tablet,delayed 40 mg PO BID #60 tabs 11/14/24 12/19/24 Rx release amlodipine 5 mg tablet 5 mg PO QAM 12/19/24 12/19/24 History rosuvastatin 20 mg tablet 20 mg PO HS 12/19/24 12/19/24 History Past Med/Surg History Problem List Age-related physical debility Frailty syndrome in geriatric patient Simple chronic bronchitis Hyperlipidemia (Acute) 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) Hypertension (Chronic) 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) Carotid artery disease (Chronic) Hypertrophic cardiomyopathy (Chronic) Recurrent falls (Chronic) Anxiety (Chronic) Medical History COVID-19 Sigmoid diverticulitis Diverticulitis Uncontrolled hypertension Acute dehydration Weakness AAA (abdominal aortic aneurysm) Surgical History S/P tubal ligation Family History Other Diabetes Social History Smoking Status: Current every day smoker Tobacco Type: Cigarettes packs per day: 0.5; Cigarettes Per Day: 1/4 PPD; Second Hand Exposure: No; Do You Dip or Chew Tobacco: No; Hx Alcohol Use: No Hx Substance Use: No Preferred Language: Georgian Communication Ability: Effective Bean Viner Required: No Beliefs That Will Affect Care: None Current Living Situation: Spouse Current Living Situation Comment: lives in 2 story home with Feels Safe at Home: Yes Assistive Devices: None Review of Systems Review of Systems: Remaining review of constitutional, pulmonary, cardiovascular, gastrointestinal, genitourinary, musculoskeletal, neurologic, and integumentary systems was unremarkable except for pertinent positive and negative findings noted in the HPI above. Physical Exam Physical Exam: General: Elderly female in no acute distress Vital Signs: reviewed HEENT: mild temporal wasting; sunken periorbital fat pads; atraumatic; extraocular muscles intact; pupils equally round reactive to light; tacky mucous membranes Pulmonary: symmetric chest wall excursion that is unrestricted; lungs clear to auscultation bilaterally Cardiovascular: regular rate and rhythm without murmurs, rubs, or gallops; S1 and S2 normal; bilateral radial and posterior tibial pulse 2+; no notable lower extremity edema Gastrointestinal: scaphoid, superficial epithelial defects in line with the patient's underwear garment; normal bowel sounds throughout; mild tenderness to palpation in the epigastrium and periumbilical area Musculoskeletal: generalized muscle atrophy Neurologic: CN II-XII grossly intact; gross strength assessment of the bilateral upper and lower extremities is 4/5 without asymmetry Results & Data Results & Data Vital Signs (Past 12 Hours) Vital Signs Temp Pulse Pulse Resp BP BP Pulse Ox 12/19/24 18:03 74 12/19/24 16:06 74 19 180/95 H 96 12/19/24 16:00 72 16 140/82 96 12/19/24 15:40 36.8 C 76 18 160/95 H 92 12/19/24 14:46 72 18 192/101 H 98 12/19/24 13:56 77 12/19/24 13:47 36.8 C 80 16 150/77 H 97 12/19/24 13:40 36.8 C 90 17 119/78 98 O2 Del Method O2 Flow Rate 12/19/24 18:03 12/19/24 16:06 Room Air 12/19/24 16:00 Room Air 12/19/24 15:40 Room Air 12/19/24 14:46 Room Air 12/19/24 13:56 12/19/24 13:47 Room Air 0 12/19/24 13:40 Room Air Code Status & VTE Plan Code Status Full Code VTE Prophylaxis Plan VTE Prophylaxis will be ordered: Yes Coding Level of Care Code 62080 INT INP/OBS CARE 2/55MIN Diagnoses Age-related physical debility R54 Frailty syndrome in geriatric patient R54 Mesenteric artery stenosis K55.1 Simple chronic bronchitis J41.0 Recurrent falls R29.6
[2024-12-19] MEDS ORDERED: ALBUTEROL HFA 8 GM INHALER INH PRN (19:51)
[2024-12-19] MEDS: ROSUVASTATIN CALCIUM 20 MG TAB PO SCH (21:30)
--- NOTE | 2024-12-20 07:11 | Hospitalist Progress Note ---
Date of Service December 20, 2024 Assessment & Plan (1) Age-related physical debility: (2) Frailty syndrome in geriatric patient: (3) Mesenteric artery stenosis: (4) Simple chronic bronchitis: (5) Recurrent falls: Plan In summary this is a 74-year-old female whose admitted for progressive physical debility and frailty in a geriatric patient, complicated by unintentional weight loss. #Age-related physical debility and frailty syndrome in geriatric patient // Progressive unintentional weight loss // Mesenteric artery stenosis Patient presents with recurrent falls at home, likely consequential of progressive muscle atrophy due to poor appetite and unintentional weight loss in the setting of mesenteric artery stenosis; furthermore, the patient's home medication regimen is concerning in geriatric patient specifically with regard to the paroxetine due to the adverse effects noted in this patient population; it will be continued during her hospitalization due to the risk of precipitous withdraw considering a short half-life; the patient's established mesenteric artery stenosis could also be contributing to their progressive weight loss and abdominal discomfort, though their endorse abdominal pain is not consistent with typical pain associated with mesenteric artery stenosis/insufficiency PT/OT consulted Dietitian consulted #Generalized anxiety disorder with episodic panic // Insomnia // Polypharmacy Chronic condition; maintained on paroxetine and alprazolam by their PCP, in addition to trazodone for insomnia; considering the patient's age and frailty, I do not recommend these medications for jail management of these conditions as they precipitously increase the risk of falls and cumulative/additive adverse drug effects. I have strongly encouraged the patient to discuss these concerns with their PCP at their follow up appointment #Barretts esophagus Continue pantoprazole #Hypertension // Hyperlipidemia // Coronary and peripheral vascular disease Chronic conditions; continue home medication regimen DVT PPx: start SCDs Admission and Anticipated Discharge Date Admission Date: December 19, 2024 Subjective Ms. Chavis is a 74-year-old female whose active medical conditions include Barretts esophagus, mesenterric artery stenosis, peripheral vascular disease, hyperlipidemia, simple chronic bronchitis among other chronic conditions who presented to the [facility] accompanied by their spouse due to recurrent falls at home associated with weakness. The patient describes difficulty ambulating around their home due to leg weakness which has been progressive, but not precipitous. They deny any ataxic symptoms, asymmetric weakness, peripheral paresthesia or loss of sensation. Further, they deny any associated chest pain, exertional dyspnea, palpitations associated with these falls. The patient is unsure of any loss of consciousness associated with these falls, but denies any significant trauma from these falls. No acute overnight events; patient endorses some mild anxiety this morning, but without serious concerns at this time. They have been able to tolerate eating without significant abdominal pain. Review of Systems Review of Systems: Remaining review of constitutional, gastrointestinal, musculoskeletal, neurologic systems was unremarkable except for pertinent positive and negative findings noted in the HPI above. Physical Exam Physical Exam: General: Elderly female in no acute distress Vital Signs: reviewed HEENT: mild temporal wasting; sunken periorbital fat pads; atraumatic; extraocular muscles intact; pupils equally round reactive to light; tacky mucous membranes Pulmonary: symmetric chest wall excursion that is unrestricted Cardiovascular: regular rate and rhythm with bilateral radial pulse 2+; no notable lower extremity edema Gastrointestinal: scaphoid, superficial epithelial defects in line with the patient's underwear garment; normal bowel sounds throughout; mild tenderness to palpation in the epigastrium and periumbilical area Musculoskeletal: generalized muscle atrophy Neurologic: CN II-XII grossly intact; gross strength assessment of the bilateral upper and lower extremities is 4/5 without asymmetry Results & Data Results & Data Vital Signs (Past 12 Hours) Vital Signs Temp Pulse Pulse Resp BP BP Pulse Ox 12/20/24 03:43 36.9 C 61 18 155/87 H 96 12/20/24 02:18 12/20/24 00:42 59 L 12/20/24 00:25 37.2 C 62 20 169/82 H 94 12/19/24 22:46 12/19/24 22:46 36.5 C 62 18 163/107 H 95 12/19/24 20:00 62 18 138/84 96 O2 Del Method 12/20/24 03:43 Room Air 12/20/24 02:18 Room Air 12/20/24 00:42 12/20/24 00:25 Room Air 12/19/24 22:46 Room Air 12/19/24 22:46 Room Air 12/19/24 20:00 Room Air PG Care Time/CCT Total # of Minutes Spent Total Time Spent with Patient: Total time spent is greater than 50% in coordination of care (as documented) at patient's floor/unit and/or counseling patient: Coding Level of Care Code 80921 SUB INP/OBS CARE MIN Diagnoses Age-related physical debility R54 Frailty syndrome in geriatric patient R54 Mesenteric artery stenosis K55.1 Simple chronic bronchitis J41.0 Recurrent falls R29.6
[2024-12-20] MEDS: ASPIRIN 81 MG ECTAB PO SCH (07:40)
[2024-12-20] MEDS: POLYETHYLENE (MIRALAX) 17 GM PACK PO SCH (07:40)
[2024-12-20] MEDS: PARoxetine HCl CONTROLLED REL 12.5 MG TABCR PO SCH (07:40)
[2024-12-20 12:11] LABS: Folate (Folic Acid),Ser orPlas > 22.30 ng/ml (>5.38)
[2024-12-20 12:12] LABS: Vitamin B12 1019 pg/ml (180-914)
--- NOTE | 2024-12-21 07:21 | Hospitalist Progress Note ---
Date of Service December 21, 2024 Assessment & Plan (1) Age-related physical debility: (2) Frailty syndrome in geriatric patient: (3) Mesenteric artery stenosis: (4) Recurrent falls: (5) Moderate protein-calorie malnutrition: (6) Polypharmacy: Plan In summary this is a 74-year-old female whose admitted for progressive physical debility and frailty in a geriatric patient, complicated by unintentional weight loss. #Age-related physical debility and frailty syndrome in geriatric patient // Progressive unintentional weight loss // Moderate protein-calorie malnutrition // Mesenteric artery stenosis Patient presents with recurrent falls at home, likely consequential of progressive muscle atrophy due to poor appetite and unintentional weight loss in the setting of mesenteric artery stenosis; furthermore, the patient's home medication regimen is concerning in a geriatric patient, further discussed below; the patient's established mesenteric artery stenosis could also be contributing to their progressive weight loss and abdominal discomfort, though their endorsed abdominal pain is not consistent with typical pain associated with mesenteric artery stenosis/insufficiency PT/OT consulted Dietitian consulted CTA abdomen pending #Generalized anxiety disorder with episodic panic // Insomnia // Polypharmacy Chronic condition; maintained on paroxetine and alprazolam by their PCP, in addition to trazodone for insomnia; considering the patient's age and frailty, I do not recommend these medications for alf management of these conditions as they precipitously increase the risk of falls and cumulative/additive adverse drug effects. I have strongly encouraged the patient to discuss these concerns with their PCP at their follow up appointment #Barretts esophagus Continue pantoprazole #Hypertension // Hyperlipidemia // Coronary and peripheral vascular disease Chronic conditions; continue home medication regimen DVT PPx: continue SCDs Admission and Anticipated Discharge Date Admission Date: December 19, 2024 Anticipated date of discharge: 12/21/24 Subjective Ms. Chavis is a 74-year-old female whose active medical conditions include Barretts esophagus, mesenterric artery stenosis, peripheral vascular disease, hyperlipidemia, simple chronic bronchitis among other chronic conditions who presented to the [facility] accompanied by their spouse due to recurrent falls at home associated with weakness. The patient describes difficulty ambulating around their home due to leg weakness which has been progressive, but not precipitous. They deny any ataxic symptoms, asymmetric weakness, peripheral paresthesia or loss of sensation. Further, they deny any associated chest pain, exertional dyspnea, palpitations associated with these falls. The patient is unsure of any loss of consciousness associated with these falls, but denies any significant trauma from these falls. No acute overnight events; they have no concerns this morning other than discharge home. Review of Systems Review of Systems: Remaining review of constitutional, gastrointestinal, musculoskeletal, neurologic systems was unremarkable except for pertinent positive and negative findings noted in the HPI above. Physical Exam Physical Exam: General: Elderly female in no acute distress Vital Signs: reviewed HEENT: mild temporal wasting; sunken periorbital fat pads; atraumatic; extraocular muscles intact; pupils equally round reactive to light; moist mucous membranes Pulmonary: symmetric chest wall excursion that is unrestricted Cardiovascular: regular rate and rhythm with bilateral radial pulse 2+; no notable lower extremity edema Gastrointestinal: scaphoid, superficial epithelial defects in line with the patient's underwear garment; normal bowel sounds throughout; mild tenderness to palpation in the epigastrium and periumbilical area Musculoskeletal: generalized muscle atrophy Neurologic: CN II-XII grossly intact; gross strength assessment of the bilateral upper and lower extremities is 4/5 without asymmetry Results & Data Results & Data Vital Signs (Past 12 Hours) Vital Signs Temp Pulse Pulse Resp BP Pulse Ox O2 Del Method 12/21/24 03:36 36.4 C L 62 18 166/84 H 95 Room Air 12/21/24 00:24 61 12/20/24 23:00 36.9 C 64 18 157/81 H 94 Room Air 12/20/24 20:27 Room Air 12/20/24 19:30 37.0 C 67 18 131/81 95 Room Air PG Care Time/CCT Total # of Minutes Spent Total Time Spent with Patient: Total time spent is greater than 50% in coordination of care (as documented) at patient's floor/unit and/or counseling patient: Coding Level of Care Code 10034 SUB INP/OBS CARE 2/35MIN Diagnoses Age-related physical debility R54 Frailty syndrome in geriatric patient R54 Mesenteric artery stenosis K55.1 Recurrent falls R29.6 Moderate protein-calorie malnutrition E44.0 Polypharmacy Z79.899
[2024-12-21 08:40] VITALS: RESP 16; TEMP 98.1
[2024-12-21] MEDS: OPTIRAY 320 125ml IV ONE (10:04)
--- NOTE | 2024-12-21 11:36 | CT Scan Report ---
CT angio abdomen w con HISTORY: 74 years-old Female SMA occlusion; unintentional weight loss acute weight loss COMPARISON: CT abdomen and pelvis 12/19/2024, CT abdomen 07/05/2024 TECHNIQUE: CTA abdomen was obtained with IV contrast. All measurements were obtained according to ETTA CET criteria. 3-D coronal and sagittal measurements were obtained and submitted for review. FINDINGS: CTA: Mild cardiomegaly with left ventricular wall thickening and coronary artery calcifications. Prom inent atherosclerosis with tortuosity of the descending thoracic aorta measures up to 3.3 cm transver sely. Infrarenal dilation of the abdominal aorta measures 3.2 x 3.0 cm, unchanged. There is no dissec tion. Atherosclerosis with patency of the imaged iliac arteries. There is high-grade stenosis at the origin of the celiac trunk, unchanged. Calcified plaque at the origin of the superior mesenteric ngoc ry causes mild stenosis of less than 50%. High-grade stenosis at the origin of the duplicated right r enal arteries. Lniy-mr-quldnlyn stenosis at the proximal left renal artery. High-grade stenosis at th e origin of the inferior mesenteric artery. No retroperitoneal hemorrhage. CT ABDOMEN/PELVIS: Clear lung bases. No pneumatosis or pneumoperitoneum. Unremarkable spleen, pancrea s and left adrenal gland. Unchanged right adrenal gland nodule. Subcentimeter probable cysts of the l iver. Patent portal vein. Dilation of the left renal pelvis has improved from prior. No hydronephrosi s or lymphadenopathy. No bowel obstruction or bowel wall thickening. Colonic diverticulosis. Unremarkable soft tissues. Mul tiple chronic appearing superior endplate compression at L5. No acute fracture. IMPRESSION: 1. No acute intra-abdominal abnormality. 2. Extensive atherosclerosis with fusiform dilation of the descending thoracic and abdominal aorta. 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 3. High-grade stenosis redemonstrated involving the celiac trunk, right renal and inferior mesenteric arteries. 4. Mild stenosis at the origin of the superior mesenteric artery. ACT 112: Negative or not required by law. The above report was generated using voice recognition software. It may contain grammatical, syntax o r spelling errors. Electronically signed by: Olu Villagran M.D. 12/21/2024 11:34 AM
[2024-12-21 11:38] VITALS: BP 163/82; PULSE 60; O2SAT 98
--- NOTE | 2024-12-22 10:53 | Discharge Summary ---
Discharge Summary Date of Service December 22, 2024 Principal Dx & Hospital Course #1 = Principal Diagnosis (1) Age-related physical debility: (2) Frailty syndrome in geriatric patient: (3) Mesenteric artery stenosis: (4) Recurrent falls: (5) Moderate protein-calorie malnutrition: (6) Polypharmacy: Plan In summary this is a 74-year-old female whose admitted for progressive physical debility and frailty in a geriatric patient, complicated by unintentional weight loss. #Age-related physical debility and frailty syndrome in geriatric patient // Progressive unintentional weight loss // Moderate protein-calorie malnutrition // Mesenteric artery stenosis Patient presents with recurrent falls at home, likely consequential of progressive muscle atrophy due to poor appetite and unintentional weight loss in the setting of mesenteric artery stenosis; furthermore, the patient's home medication regimen is concerning in a geriatric patient, further discussed below; the patient's established mesenteric artery stenosis could also be contributing to their progressive weight loss and abdominal discomfort, though their endorsed abdominal pain is not consistent with typical pain associated with mesenteric artery stenosis/insufficiency PT/OT consulted Dietitian consulted CTA abdomen did not reveal progression of previously visualized disease #Generalized anxiety disorder with episodic panic // Insomnia // Polypharmacy Chronic condition; maintained on paroxetine and alprazolam by their PCP, in addition to trazodone for insomnia; considering the patient's age and frailty, I do not recommend these medications for manager intermediate management of these conditions as they precipitously increase the risk of falls and cumulative/additive adverse drug effects. I have strongly encouraged the patient to discuss these concerns with their PCP at their follow up appointment #Barretts esophagus Continue pantoprazole #Hypertension // Hyperlipidemia // Coronary and peripheral vascular disease Chronic conditions; continue home medication regimen DVT PPx: continue SCDs Notes For Next Care Provider Patient identified high risk for 30- day readmission. Our hospitalist team would be glad to discuss any details of the hospital stay with you, please reach out by [facility] with a good call back number and we will return your call. Patient has very poor insight to her health conditions but does have capacity at the time of this admission to make independent health decisions. Admission HPI Per Admitting Provider Ms. Chavis is a 74-year-old female whose active medical conditions include Sanders etts esophagus, mesenterric artery stenosis, peripheral vascular disease, hyperlipidemia, simple chronic bronchitis among other chronic conditions who presented to the [facility] accompanied by their spouse due to recurrent falls at home associated with weakness. The patient describes difficulty ambulating around their home due to leg weakness which has been progressive, but not precipitous. They deny any ataxic symptoms, asymmetric weakness, peripheral paresthesia or loss of sensation. Further, they deny any associated chest pain, exertional dyspnea, palpitations associated with these falls. The patient is unsure of any loss of consciousness associated with these falls, but denies any significant trauma from these falls. Discharge Exam General: Elderly female in no acute distress Vital Signs: reviewed HEENT: mild temporal wasting; sunken periorbital fat pads; atraumatic; extraocular muscles intact; pupils equally round reactive to light; moist mucous membranes Pulmonary: symmetric chest wall excursion that is unrestricted Cardiovascular: regular rate and rhythm with bilateral radial pulse 2+; no notable lower extremity edema Gastrointestinal: scaphoid, superficial epithelial defects in line with the patient's underwear garment; normal bowel sounds throughout; mild tenderness to palpation in the epigastrium and periumbilical area Musculoskeletal: generalized muscle atrophy Neurologic: CN II-XII grossly intact; gross strength assessment of the bilateral upper and lower extremities is 4/5 without asymmetry Discharge Plan Discharge Items Patient Disposition: Home - Home Health Services Reason For Visit: RECURRENT FALLS // PHYISCAL DEBILITIY AND FRAILTY Discharge Diagnosis: Moderate protein-calorie malnutrition // Geriatric physical debility and frailty // Polypharmacy // SMA stenosis Condition on Discharge: Fair Activity: Per Instructions section Lifting: No more than 10 pounds Bathing: No limitations Exercise/Sports: Wait until after follow-up appointment Driving/Machine Use: No limitations Weightbearing: Full weightbearing Weightbearing Comment: Recommend ambulation with assistive device Non-emergency contact: Primary Care Provider, Surgeon and Human Resources Project Coordinator Call non-emergency contact if: you have any medication questions, your symptoms worsen and your pain is concerning for you Follow-up/Referrals: Jerome Elizondo DO [Physician] - (Moderate protein-calorie malnutrition // SMA stenosis) Adriel Whitaker MD [Primary Care Provider] - Edward Ponce MD [Physician] - (SMA stenosis with progressive weight loss) Amrik Draper MD [Outside Practitioners] - 12/26/24 12:40 pm (Hospital follow up appointment- please arrive 15 minutes prior to appointment time) Diet: Other - See Diet Comment Fluids: 1500ml (6 cups) Addtl Attending Provider Instructions: You were admitted to [facility] for recurrent falls and progressive physical debility and frailty. With regard to your progressive unintentional weight loss and physical debility as well as frailty complicated by moderate protein calorie malnutrition you were evaluated by our dietary services during hospitalization who provided recommendations for detailed below to assist with adequate caloric intake. We discussed at length the role your SMA vascular disease is likely playing and contribute to poor intestinal absorption, making the dietary adjustments less effective in the long-term. We have provided referral to [facility] vascular surgery today for follow-up in the outpatient setting as well as additional follow-up with your outside dealer sales representative with whom you have been previously established As we further discussed during your hospitalization the concerns regarding the multiple psychiatric/central nervous system acting medications that are Concerning for PE contributing to your difficulty with navigating at home, recurrent falls; specifically this is referring to trazodone, alprazolam, paroxetine. Strongly recommend you discuss with your PCP the adjustment of these medications given their contributing risk to a future fall which can significantly impact your future health and mortality risk. Thank you for choosing [facility] as your healthcare provider. Pending Studies at Discharge: No Stand-Alone Forms: My [facility] Medications and DC Order Prescriptions: Continued pantoprazole 40 mg tablet,delayed release (DR/EC) 40 mg PO BID Qty: 60 5RF albuterol sulfate 90 mcg/actuation HFA aerosol inhaler 2 puff INHALATION Q6H PRN (Reason: Shortness Of Breath Or Wheezing) alprazolam 0.25 mg tablet 0.25 mg PO TID PRN (Reason: anxiety ) trazodone 100 mg tablet 100 mg PO HS paroxetine HCl 12.5 mg tablet extended release 24 hr 12.5 mg PO QAM carvedilol 3.125 mg tablet 3.125 mg PO AMHS aspirin 81 mg Tablet,Chewable 81 mg PO QAM fluticasone propionate 50 mcg/actuation Binger,Suspension 2 spray NA DAILY PRN (Reason: Nasal congestion) Qty: 16 0RF docusate sodium 100 mg Capsule 100 mg PO BID PRN (Reason: Constipation) Qty: 30 0RF rosuvastatin 20 mg tablet 20 mg PO HS amlodipine 5 mg tablet 5 mg PO QAM Discharge Orders: Discharge Order (Routine); Ordered 12/21/24 Ordered By: Fransisco Iniguez Admission Data Admit Date/Time: 12/19/24 17:08 Attending Provider: Fransisco Iniguez Admit Provider: Fransisco Iniugez Primary Care Provider: Adriel Whitaker Other Providers: Fransisco Iniguez Other Interventions: Discharge Summary Assessment (RN) Last Done: 12/21/24 14:47 Hospital Stay Data Consultations 12/19/24 17:05 ED Decision to Admit Stat Diagnostic Imagining Performed 12/19/24 14:12 CT abd pelvis IV con only Stat CT cervical spine wo con Stat CT chest diagnostic w con Stat CT head/brain wo con Stat 12/21/24 08:04 CTA abdomen w con [CT angio abdomen w con] Routine Pending Results Patient Have Any Pending Studies at Discharge: No Discharge Instructions Given to Patient (Per Discharging Provider) You were admitted to [facility] for recurrent falls and progressive physical debility and frailty. With regard to your progressive unintentional weight loss and physical debility as well as frailty complicated by moderate protein calorie malnutrition you were evaluated by our dietary services during hospitalization who provided recommendations for detailed below to assist with adequate caloric intake. We discussed at length the role your SMA vascular disease is likely playing and contribute to poor intestinal absorption, making the dietary adjustments less effective in the long-term. We have provided referral to [facility] vascular surgery today for follow-up in the outpatient setting as well as additional follow-up with your outside dealer sales representative with whom you have been previously established As we further discussed during your hospitalization the concerns regarding the multiple psychiatric/central nervous system acting medications that are Concerning for PE contributing to your difficulty with navigating at home, recurrent falls; specifically this is referring to trazodone, alprazolam, paroxetine. Strongly recommend you discuss with your PCP the adjustment of these medications given their contributing risk to a future fall which can significantly impact your future health and mortality risk. Thank you for choosing [facility] as your healthcare provider. Total Time Total Time Spent Total Time Spent (In Minutes): 45 Coding Level of Care Code 10285 INP/OBS DISCH >30 MIN Diagnoses Age-related physical debility R54 Frailty syndrome in geriatric patient R54 Mesenteric artery stenosis K55.1 Recurrent falls R29.6 Moderate protein-calorie malnutrition E44.0 Polypharmacy Z79.899
[2024-12-23 16:08] LABS: Vitamin D2,1,25 <8 pg/mL
== END 2024-12-21 14:59 | disposition home health service (06) ==
LOC: ED 13:39 → INTOOBSV 17:08 → EDINP 17:08 → 2N 19:51

== ENCOUNTER 2025-02-12 10:54 | Observation (INO) ==
--- NOTE | 2025-02-12 11:03 | Emergency Department Note ---
Impression & Plan Syncope, Hypertrophic cardiomyopathy, Closed fracture of shoulder, Elevated troponin ED Provider Note NAME: YA RIVERA AGE: 74 SEX: F : 1950 ARRIVES VIA: Ambulance INFORMANT: Patient ED PROVIDER(S): Sumeet Salas DO CHIEF COMPLAINT: Syncope HPI: Patient is a 74-year-old female with a past medical history of frailty, mesenteric artery stenosis, hyperlipidemia, carotid artery disease who presents to the ER for feeling dizzy. She notes she went to get up and she was walking in the hallway. Everything went black and she fell to the ground. She complains of left shoulder pain. Mild headache. No neck pain. No chest pain or shortness of breath. No weakness or numbness in the arms or legs other than the left arm. ADDITIONAL HISTORY OBTAINED: Per HPI Chronic Medical/Social Conditions Affecting Care: Per HPI PAST MEDICAL HISTORY:See Below PAST SURGICAL HISTORY:See Below FAMILY HISTORY:See Below SOCIAL HISTORY:See Below HOME MEDICATIONS:See Below ALLERGIES:See Below VITALS:See Below PHYSICAL EXAMINATION: Primary Survey Airway: Intact Breathing: Normal, breath sounds equal bilaterally Circulation: Skin warm, distal pulses 2+, capillary refill less than 2 seconds Disability Pupils: Equal and reactive to light, brisk GCS: 15, No deficits Secondary Survey GENERAL: alert, well appearing, well nourished, no distress, non-toxic HEAD: normal cephalic, multiple abrasions to the forehead EYE EXAM: normal conjunctiva, PERRL and EOM's grossly intact OROPHARYNX: no exudate, no erythema, lips, buccal mucosa, and tongue normal and mucous membranes are moist EARS: TMs clear b/l NECK: supple, no nuchal rigidity, no adenopathy, non-tender CHEST: stable to compression anteriorly and posteriorly LUNGS: clear to auscultation. Normal chest wall mechanics HEART: no murmurs, S1 normal and S2 normal ABDOMEN: abdomen soft, non-tender, normo-active bowel sounds, no masses, no rebound or guarding. PELVIS: stable to compression anteriorly and posteriorly BACK: Back is symmetrical on inspection and there is no deformity, no midline tenderness, no CVA tenderness. UPPER EXTREMITIES: No tenderness on palpation of the right upper extremity. Obvious deformity of the left humeral head. No tenderness throughout the left hand forearm or elbow. Radial pulse 2 out of 4 bilaterally. LOWER EXTREMITIES: full active and passive range of motion of all joints without tenderness to palpation NEURO EXAM: Normal sensorium, cranial nerves II-XII grossly intact, normal speech, no gross weakness of arms, no gross weakness of legs. GCS: 15. MEDICAL DECISION MAKING: Patient is a 74-year-old female who presents to the ER for the above-stated complaint following a syncopal episode with a history of hypertrophic cardiomyopathy. IV was established and blood work is obtained. Labs show no significant leukocytosis or anemia. INR unremarkable. BMP with mild hypokalemia 3.2. LFTs and bilirubin are unremarkable. Troponin was mildly elevated at 20. Lipase was normal. UA was clean. CT head and cervical spine was negative. X-ray of the shoulder chest and pelvis did show a left humeral head fracture. Patient was given IV narcotics. With the syncopal event and the history of hypertrophic cardiomyopathy I did discuss case with the hospitalist for further evaluation management treatment. Consults/Care Managements Discussions: Per [facility] Triage Nursing notes reviewed. Limited review of prior medical records performed Vital Signs: reviewed and remarkable for no significant abnormalities Differential diagnosis: Differential diagnoses include major intracranial, cervical, spinal, thoracic, abdominal, pelvic and neurologic injury. Fracture, contusion, sprain, strain, laceration, abrasions included as well. ER treatment provided: See below Diagnostics interpreted by me include EKG and cardiac monitoring as listed below: -Cardiac Monitoring: An order was placed for continuous cardiac monitoring. The monitor shows a rate of 80 with sinus rhythm. -ECG: Sinus rhythm rate 72 Left axis No PVCs QTc 464 -Laboratory studies:Interpreted by me as stated above in MDM and shown below. Imaging studies: Xrays: As interpreted by me: X-ray of the pelvis and chest as well as the shoulder shows a left shoulder fracture. Portable AP upright 1 view of the chest shows no focal infiltrate CTs show: CT head and cervical spine was negative per radiology Procedures:none Critical Care: None Past Med/Surg History Problem List (Updated 02/12/25 @ 15:02 by Sumeet Salas DO) Elevated troponin (Acute) Closed fracture of shoulder (Acute) Syncope (Acute) Humeral fracture Moderate protein-calorie malnutrition (Acute) Polypharmacy (Acute) Underweight (BMI < 18.5) Age-related physical debility (Acute) Frailty syndrome in geriatric patient Simple chronic bronchitis Hyperlipidemia (Acute) 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) Hypertension (Chronic) 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) Carotid artery disease (Chronic) Hypertrophic cardiomyopathy (Chronic) Recurrent falls (Chronic) Anxiety (Chronic) Medical History COVID-19 Sigmoid diverticulitis Diverticulitis Uncontrolled hypertension Acute dehydration Weakness AAA (abdominal aortic aneurysm) Surgical History S/P tubal ligation Family History Other Diabetes Social History Smoking Status: Current every day smoker Tobacco Type: Cigarettes packs per day: 0.5; Cigarettes Per Day: 1/4 PPD; Second Hand Exposure: No; Do You Dip or Chew Tobacco: No; Hx Alcohol Use: No Hx Substance Use: No Preferred Language: Japanese Communication Ability: Effective Asphalt Coater Required: No Beliefs That Will Affect Care: None Current Living Situation: Spouse Current Living Situation Comment: lives in 2 story home with Other Information That Helps Us Care for You: No Feels Safe at Home: Yes Safety Concerns: Feels Safe At This Time Assistive Devices: Denture - Upper Allergies Allergies Allergy/AdvReac Type Severity Reaction Status Date / Time salicylates AdvReac Intermediate INTOLERANCE Verified 12/19/24 18:15 Home Meds Home Medications Medication Instructions Recorded Confirmed albuterol sulfate 90 mcg/actuation 2 puff inhalation Q6H PRN 08/23/22 02/12/25 aerosol inhaler Shortness Of Breath Or Wheezing alprazolam 0.25 mg tablet 0.25 mg PO TID PRN anxiety 05/02/23 02/12/25 paroxetine HCl 12.5 mg 12.5 mg PO QAM 05/02/23 02/12/25 tablet,extended release 24 hr trazodone 100 mg tablet 100 mg PO HS 05/02/23 02/12/25 aspirin 81 mg chewable tablet 81 mg PO QAM 09/21/23 02/12/25 carvedilol 3.125 mg tablet 3.125 mg PO AMHS 09/21/23 02/12/25 amlodipine 5 mg tablet 5 mg PO QAM 12/19/24 02/12/25 rosuvastatin 20 mg tablet 20 mg PO HS 12/19/24 02/12/25 Previous Rx's Medication Instructions Recorded docusate sodium 100 mg capsule 100 mg PO BID PRN Constipation #30 02/25/24 caps fluticasone propionate 50 2 spray NA DAILY PRN Nasal 02/25/24 mcg/actuation nasal congestion #16 grams spray,suspension pantoprazole 40 mg tablet,delayed 40 mg PO BID #60 tabs 11/14/24 release Results & Data (ED) Vital Signs Vital Signs - 24 hr 02/12/25 10:54 02/12/25 10:54 02/12/25 10:57 Temperature 36.4 C L Pulse Rate 70 70 Pulse Rate [Apical] Pulse Rate from SpO2 Sensor Respiratory Rate 18 18 Blood Pressure 181/89 H 181/89 H Blood Pressure [Right Arm] Blood Pressure Mean 119 Blood Pressure Mean [Right Arm] Pulse Oximetry 96 96 Oxygen Delivery Method Room Air Room Air Room Air Oxygen Flow Rate 0 Sepsis Recent Fever Within 48 Hours No Sepsis New/Unexplained Change in Mental Status No Sepsis Action Taken by Nursing No Action Required 02/12/25 11:10 02/12/25 11:19 02/12/25 11:20 Temperature Pulse Rate 71 Pulse Rate [Apical] 69 Pulse Rate from SpO2 Sensor Respiratory Rate Blood Pressure 181/89 H Blood Pressure [Right Arm] 171/63 H Blood Pressure Mean 140 Blood Pressure Mean [Right Arm] 99 Pulse Oximetry Oxygen Delivery Method Oxygen Flow Rate Sepsis Recent Fever Within 48 Hours Sepsis New/Unexplained Change in Mental Status Sepsis Action Taken by Nursing 02/12/25 11:30 02/12/25 11:33 02/12/25 12:00 Temperature Pulse Rate 72 71 Pulse Rate [Apical] 75 Pulse Rate from SpO2 Sensor 70 Respiratory Rate 30 H 25 H 23 Blood Pressure 181/91 H Blood Pressure [Right Arm] 169/96 H Blood Pressure Mean 114 Blood Pressure Mean [Right Arm] 120 Pulse Oximetry 98 100 98 Oxygen Delivery Method Room Air Oxygen Flow Rate Sepsis Recent Fever Within 48 Hours Sepsis New/Unexplained Change in Mental Status Sepsis Action Taken by Nursing Laboratory Data 02/12/25 11:01 02/12/25 11:01 Lab Results 02/12/25 02/12/25 Range/Units 11:01 11:12 WBC 10.55 (4.8-10.8) K/ul RBC 4.05 L (4.20-5.40) M/uL Hgb 12.3 (12.0-16.0) g/dl POC Hgb 12.2 (12.0-16.0) g/dl Hct 37.6 (37.0-47.0) % POC Hct 36 L (37-47) % MCV 92.8 (80.0-100.0) fL MCH 30.4 (25.0-34.0) pg MCHC 32.7 (32.0-36.0) g/dL RDW Std Deviation 42.3 (36.4-46.3) fL RDW Coeff of Yamile 12.3 (11.5-14.5) % Plt Count 133 (130-400) K/uL MPV 10.8 (9.4-12.4) fL Immature Gran % (Auto) 0.4 % Neut % (Auto) 85.5 % Lymph % (Auto) 7.7 % Obion % (Auto) 5.6 % Eos % (Auto) 0.3 % Baso % (Auto) 0.5 % Neut # (Auto) 9.03 H (1.40-6.50) K/uL Lymph # (Auto) 0.81 L (1.20-3.40) K/uL [place] # (Auto) 0.59 (0.11-0.59) K/uL Eos # (Auto) 0.03 (0.00-0.50) K/uL Baso # (Auto) 0.05 (0.00-0.20) K/uL Immature Gran # (Auto) 0.04 (0.01-0.20) K/uL PT 11.2 (9.0-12.0) Seconds INR 1.1 (0.9-1.1) APTT 23 (21-31) Seconds PTT Ratio 0.8 POC Sodium 137 (135-144) mmol/L Sodium 137 (136-145) mmol/L POC Potassium 3.4 (3.3-5.0) mmol/L Potassium 3.4 L (3.5-5.1) mmol/L POC Chloride 100 L (101-112) mmol/L Chloride 101 (98-107) mmol/L Carbon Dioxide 29 (21-32) mmol/L POC Total CO2 28 (24-31) mmol/L Anion Gap 7 (3-11) POC Anion Gap 14.0 L (16-25) mmol/L POC BUN 32 H (7-18) mg/dl BUN 29 H (6-23) mg/dl Creatinine 1.02 (0.6-1.2) mg/dl POC Creatinine 1.2 (0.6-1.3) mg/dl Est Cr Clr Drug Dosing 33.3 ml/min eGFR 58.45 BUN/Creatinine Ratio 28.4 H (10-20) Glucose 102 H (70-99(Fasting)) mg/dl POC Glucose (other) 101 H (70-99) mg/dl Calcium 9.2 (8.6-10.3) mg/dl POC Ioniz Calcium Maty 1.11 L (1.12-1.32) mmol/l Total Bilirubin 0.6 (0.2-1.0) mg/dl AST 23 (13-39) U/L ALT 32 (7-52) U/L Alkaline Phosphatase 54 (34-104) U/L Troponin I High Sens 20.4 H (0-14) pg/ml Total Protein 6.7 (6.0-8.3) gm/dl Albumin 4.2 (3.4-5.0) gm/dl Globulin 2.5 (2.5-4.0) gm/dl Albumin/Globulin Ratio 1.7 (0.9-2) Lipase 49 (11-82) U/L Administered Medications Acetaminophen (Acetaminophen 325 Mg Tab) 650 mg PO TID [facility] Stop: 03/14/25 13:59 Last Admin: 02/12/25 14:26 Dose: 650 mg Documented By: JAYY Lactated Ringer's (Lr) 1,000 mls @ 80 mls/hr IV .[id number] [facility] Stop: 02/15/25 13:48 Last Admin: 02/12/25 14:26 Dose: 80 mls/hr Documented By: JAYY Ketorolac Tromethamine (Ketorolac Tromethamine 15 Mg/Ml Vial) 15 mg IV Q6H PRN PRN Reason: Pain - moderate Stop: 02/17/25 13:48 Last Admin: 02/12/25 14:26 Dose: 15 mg Documented By: JAYY Discontinued Medications Sodium Chloride (Nss) 500 mls @ 999 mls/hr IV .Q31M ONE Stop: 02/12/25 11:33 Last Infusion: 02/12/25 11:46 Dose: Infused Documented By: Admin: 02/12/25 11:11 Dose: 999 mls/hr Documented By: KACI Ioversol (Optiray 320 100ml) 94 ml IV ONCE ONE Stop: 02/12/25 11:18 Last Admin: 02/12/25 11:17 Dose: 94 ml Documented By: BRIDGETT Morphine Sulfate (Morphine Sulfate 2 Mg/Ml Carp) 2 mg IV NOW STA Stop: 02/12/25 11:04 Last Admin: 02/12/25 11:10 Dose: 2 mg Documented By: KACI Morphine Sulfate (Morphine Sulfate 2 Mg/Ml Carp) 2 mg IV Q1H PRN PRN Reason: Moderate Pain (Rating 3,4,5,6) Stop: 02/26/25 11:57 Last Admin: 02/12/25 12:05 Dose: 2 mg Documented By: KACI Imaging Data Radiologist's Impression: Chest X-Ray 02/12/25 10:57 XR chest 1V portable CLINICAL HISTORY: Trauma COMPARISON STUDY: 12/19/2024 FINDINGS: Heart size and pulmonary vasculature are normal. No consolidation or pleural effusion. No pneumothorax. There is an acute fracture at the left humeral head. IMPRESSION: 1. Acute fracture at the left humeral head. 2. No other acute findings seen at the chest. ACT 112: Negative or not required by law. Electronically signed by: Jimbo Rojo M.D. 02/12/2025 11:09 AM Pelvis X-Ray 02/12/25 10:57 XR pelvis 1-2V routine CLINICAL HISTORY: Trauma COMPARISON: 12/25/2023 FINDINGS: Bowel artifact overlies the pelvis and skin fold artifact overlies the hips. No displaced fracture or dislocation seen. IMPRESSION: No fracture seen. ACT 112: Negative or not required by law. Electronically signed by: Jimbo Rojo M.D. 02/12/2025 11:10 AM Shoulder X-Ray 02/12/25 10:57 XR shoulder LT min 2V routine CLINICAL HISTORY: l shoulder pain COMPARISON: None FINDINGS: There is an acute mildly comminuted mildly displaced fracture at the proximal humerus involving the surgical neck and the greater tuberosity. There is mild impaction and apex anterior angulation. No dislocation. IMPRESSION: Acute fracture proximal left humerus. ACT 112: Negative or not required by law. Electronically signed by: Jimbo Rojo M.D. 02/12/2025 11:[address] 02/12/25 10:59 CT SCAN OF THE CERVICAL SPINE CLINICAL HISTORY: Fall. COMPARISON STUDY: Cervical spine CT December 19, 2024. TECHNIQUE: CT scan of the cervical spine is performed from the skull base to the upper thoracic spine. Images are reviewed in the axial, sagittal, and coronal planes. IV contrast was not administered for this examination. A dose lowering technique was utilized adhering to the principles of ALARA. CT DOSE: 1054.25 mGy.cm FINDINGS: Mild anterolisthesis of C4 on C5 is unchanged. Alignment of the cervical spine is unchanged since prior CT. There are no acute cervical spine fractures. Severe multilevel facet arthrosis is present. There is moderate to severe multilevel disc space narrowing and endplate osteophytosis within the cervical spine. There are no suspicious osseous lesions. No prevertebral edema is present. Emphysema is incidentally noted within the visualized portions of the lung apices. IMPRESSION: No acute cervical spine fracture or subluxation. ACT 112: Negative or not required by law. Electronically signed by: Chris Carter M.D. 02/12/2025 11:[address] 02/12/25 10:59 CT head/brain wo con CLINICAL HISTORY: 74 years-old Female with doss. Acute headache status post fall TECHNIQUE: Multiple axial CT images of the head were obtained without contrast. A dose lowering technique was utilized adhering to the principles of ALARA. COMPARISON: CT cervical spine same day FINDINGS: No acute intracranial hemorrhage, midline shift, intracranial mass, hydrocephalus, territorial ischemia or abnormal extra-axial collection. Partially empty sella. Mild involutional changes. The calvarium is intact. The paranasal sinuses, mastoid air cells, and middle ear cavities are clear. IMPRESSION: No acute intracranial abnormality or calvarial fracture. ACT 112: Negative or not required by law. The above report was generated using voice recognition software. It may contain grammatical, syntax or spelling errors. Electronically signed by: Olu Villagran M.D. 02/12/2025 11:42 AM Discharge Plan Visit Data Chief Complaint: Trauma Stated Complaint: FALL, SHOULDER DISLOCATION ED Provider: Sumeet Salas Discharge Problem: Syncope, Hypertrophic cardiomyopathy, Closed fracture of shoulder, Elevated troponin Patient Disposition: Admitted As Inpatient Condition: Fair Discharge Instructions Interventions: ED Discharge Assessment Last Done: 02/12/25 13:12 Discharge Problem: Syncope Qualifiers: Syncope type: unspecified Qualified Code(s): R55 - Syncope and collapse Closed fracture of shoulder Qualifiers: Encounter type: initial encounter Laterality: left Qualified Code(s): S42.92XA - Fracture of left shoulder girdle, part unspecified, initial encounter for closed fracture
[2025-02-12] MEDS: MoRPHine SULFATE 2 MG/ML CARP IV STA (11:10)
[2025-02-12] MEDS: SODIUM CHLORIDE 0.9% 500 ML IV ONE (11:11)
--- NOTE | 2025-02-12 11:11 | XRay Report ---
XR chest 1V portable CLINICAL HISTORY: Trauma COMPARISON STUDY: 12/19/2024 FINDINGS: Heart size and pulmonary vasculature are normal. No consolidation or pleural effusion. No p neumothorax. There is an acute fracture at the left humeral head. IMPRESSION: 1. Acute fracture at the left humeral head. 2. No other acute findings seen at the chest. ACT 112: Negative or not required by law. Electronically signed by: Jimbo Rojo M.D. 02/12/2025 11:09 AM
--- NOTE | 2025-02-12 11:11 | XRay Report ---
XR pelvis 1-2V routine CLINICAL HISTORY: Trauma COMPARISON: 12/25/2023 FINDINGS: Bowel artifact overlies the pelvis and skin fold artifact overlies the hips. No displaced fracture or dislocation seen. IMPRESSION: No fracture seen. ACT 112: Negative or not required by law. Electronically signed by: Jimbo Rojo M.D. 02/12/2025 11:10 AM
--- NOTE | 2025-02-12 11:12 | XRay Report ---
XR shoulder LT min 2V routine CLINICAL HISTORY: l shoulder pain COMPARISON: None FINDINGS: There is an acute mildly comminuted mildly displaced fracture at the proximal humerus invo lving the surgical neck and the greater tuberosity. There is mild impaction and apex anterior angulat ion. No dislocation. IMPRESSION: Acute fracture proximal left humerus. ACT 112: Negative or not required by law. Electronically signed by: Jimbo Rojo M.D. 02/12/2025 11:11 AM
[2025-02-12] MEDS: OPTIRAY 320 100ml IV ONE (11:17)
[2025-02-12 11:31] LABS: Hematocrit (blood only) 37.6 % (37.0-47.0); Hemoglobin 12.3 g/dl (12.0-16.0); Immature Granulocytes # (auto) 0.04 K/uL (0.01-0.20); Immature Granulocytes % (auto) 0.4 %; Mean Corpuscular Hemoglobin 30.4 pg (25.0-34.0); Mean Corpuscular Volume 92.8 fL (80.0-100.0); Platelet Count 133 K/uL (130-400); RDW Standard Deviation 42.3 fL (36.4-46.3); Red Blood Count 4.05 M/uL (4.20-5.40); White Blood Count 10.55 K/ul (4.8-10.8)
--- NOTE | 2025-02-12 11:40 | CT Scan Report ---
CT SCAN OF THE CERVICAL SPINE CLINICAL HISTORY: Fall. COMPARISON STUDY: Cervical spine CT December 19, 2024. TECHNIQUE: CT scan of the cervical spine is performed from the skull base to the upper thoracic spine . Images are reviewed in the axial, sagittal, and coronal planes. IV contrast was not administered fo r this examination. A dose lowering technique was utilized adhering to the principles of ALARA. CT DOSE: 1054.25 mGy.cm FINDINGS: Mild anterolisthesis of C4 on C5 is unchanged. Alignment of the cervical spine is unchanged since prior CT. There are no acute cervical spine fractures. Severe multilevel facet arthrosis is pr esent. There is moderate to severe multilevel disc space narrowing and endplate osteophytosis within the cervical spine. There are no suspicious osseous lesions. No prevertebral edema is present. Emphys arianna is incidentally noted within the visualized portions of the lung apices. IMPRESSION: No acute cervical spine fracture or subluxation. ACT 112: Negative or not required by law. Electronically signed by: Chris Carter M.D. 02/12/2025 11:38 AM
--- NOTE | 2025-02-12 11:43 | CT Scan Report ---
CT head/brain wo con CLINICAL HISTORY: 74 years-old Female with doss. Acute headache status post fall TECHNIQUE: Multiple axial CT images of the head were obtained without contrast. A dose lowering tech nique was utilized adhering to the principles of ALARA. COMPARISON: CT cervical spine same day FINDINGS: No acute intracranial hemorrhage, midline shift, intracranial mass, hydrocephalus, territorial ischem ia or abnormal extra-axial collection. Partially empty sella. Mild involutional changes. The calvarium is intact. The paranasal sinuses, mastoid air cells, and middle ear cavities are clear . IMPRESSION: No acute intracranial abnormality or calvarial fracture. ACT 112: Negative or not required by law. The above report was generated using voice recognition software. It may contain grammatical, syntax o r spelling errors. Electronically signed by: Olu Villagran M.D. 02/12/2025 11:42 AM
[2025-02-12 11:48] LABS: Alanine Aminotransferase 32.0 U/L (7-52); Albumin Globulin Ratio 1.7 (0.9-2); Albumin Level 4.2 gm/dl (3.4-5.0); Alkaline Phosphatase 54.0 U/L (34-104); Anion Gap 7.0 (3-11); Bilirubin,Total 0.6 mg/dl (0.2-1.0); Blood Urea Nitrogen 29.0 mg/dl (6-23); Calcium 9.2 mg/dl (8.6-10.3); Carbon Dioxide 29.0 mmol/L (21-32); Chloride 101.0 mmol/L (98-107); Creatinine Clr Calc Pharmacy 33.3 ml/min; Globulin 2.5 gm/dl (2.5-4.0); Glucose 102.0 mg/dl (70-99(Fasting)); Lipase 49.0 U/L (11-82); Potassium 3.4 mmol/L (3.5-5.1); Sodium 137.0 mmol/L (136-145); Total Protein 6.7 gm/dl (6.0-8.3)
[2025-02-12 11:57] LABS: INR 1.1 (0.9-1.1); Partial Thromboplastin Time 23 Seconds (21-31); Prothrombin Time 11.2 Seconds (9.0-12.0)
[2025-02-12] MEDS ORDERED: MoRPHine SULFATE 4 MG/ML 1 ML CARP\\VIAL IV PRN (11:58)
[2025-02-12] MEDS: MoRPHine SULFATE 2 MG/ML CARP IV PRN (12:05)
[2025-02-12 13:16] LABS: Appearance Urine Cloudy (Clear); Bacteria Urine Automated None Seen (None Seen); Cast Urine Automated 0-2 /lpf (0-2); Epithelial Cell Urine Auto 0-2 /hpf (0-2); Glucose Urine UA Negative (Negative); RBC Urine Automated 0-2 /hpf (0-2); WBC Urine Automated 0-5 /hpf (0-5)
--- NOTE | 2025-02-12 13:17 | History & Physical Report ---
Date of Service February 12, 2025 Assessment & Plan (1) Humeral fracture: (2) Moderate protein-calorie malnutrition: (3) Polypharmacy: (4) Underweight (BMI < 18.5): (5) Hypertension: (6) Hypertrophic cardiomyopathy: Plan #Traumafortunately she does not appear to show any injuries other than her left shoulder. Serial exams, tertiary trauma survey 24 hours after initial evaluation. PCU for monitoring for now. #Left humeral fracturepain control, sling, orthopedics evaluation. Outpatient bone health evaluation/management #syncope appears to be a combination of her structural heart disease (hypertrophic cardiomyopathy/severe LVH, as well as aortic stenosis and mitral regurgitation) likely compounded by dehydration (poor p.o. fluid intake). Monitor. Last echocardiogram about 6 months agoprobably not a clear and pressing need for a new one given the last 1 was fairly recent, but if anything about her situation seems odd or changes, obviously repeating an echocardiogram will be done. I suspect her frailty and severe protein calorie malnutrition also plays a role in her overall weakness. polypharmacy may be playing a role as wellconsider reducing amlodipine, consider reducing trazodone further. (PCP recently reduced to 50 mg with considerations of reducing to 25 in the near futureshe had just seen her a little under a month ago) #What appears to be severe protein calorie malnutritionshe is extremely thin with a BMI of 15.1 and a lot of muscle wasting. Dietitian evaluation. See December admission as well when this was directly addressed #diffuse vascular diseasemed management, secondary risk reduction. Fortunately nothing appears to be acutely at play with vascular disease here. #HypertensionI do wonder if reducing some of her medications may help with her recurrent syncopal events as well. When I follow what her vitals are doing, but low threshold to reduce her amlodipine #abdominal skin lesionsappear to be a chronic problem. Wound care eval and treat #DVT prophylaxisLovenox #dispositionadmit to PCU for close monitoring, PT/OT eval and treat. Comes from home, but may need rehab after discharge. History of Present Illness Chief Complaint: Syncope, arm pain Primary Care Provider: Adriel Whitaker MD patient is a very pleasant 74-year-old female who presents after syncope. She notes she was walking over to the bedroom, and then got lightheaded/felt like she was going to pass out. She notes this happens frequently, but most of the time she is able to make it to the bed first. This time she was not able to and ended up collapsing to the floor with a syncopal event. She had no preceding chest pain, chest pressure, or shortness of breath. Whenever she woke up she was immediately oriented and the only thing new/different was left shoulder pain. She has no neck pain, no chest pain, no pain in any other joint or limb. She does have abdominal painbut notes this is chronic and unchanged over about the last 2 years since a prior abdominal surgery. She notes as far as oral intake she maybe drinks 40 ounces of fluid a day. Allergies Allergy/AdvReac Type Severity Reaction Status Date / Time salicylates AdvReac Intermediate INTOLERANCE Verified 12/19/24 18:15 Home Medications Medication Instructions Recorded Confirmed Type albuterol sulfate 90 mcg/actuation 2 puff inhalation Q6H PRN 08/23/22 02/12/25 History aerosol inhaler Shortness Of Breath Or Wheezing alprazolam 0.25 mg tablet 0.25 mg PO TID PRN anxiety 05/02/23 02/12/25 History paroxetine HCl 12.5 mg 12.5 mg PO QAM 05/02/23 02/12/25 History tablet,extended release 24 hr trazodone 100 mg tablet 100 mg PO HS 05/02/23 02/12/25 History aspirin 81 mg chewable tablet 81 mg PO QAM 09/21/23 02/12/25 History carvedilol 3.125 mg tablet 3.125 mg PO AMHS 09/21/23 02/12/25 History docusate sodium 100 mg capsule 100 mg PO BID PRN Constipation #30 02/25/24 02/12/25 Rx caps fluticasone propionate 50 2 spray NA DAILY PRN Nasal 02/25/24 02/12/25 Rx mcg/actuation nasal congestion #16 grams spray,suspension pantoprazole 40 mg tablet,delayed 40 mg PO BID #60 tabs 11/14/24 02/12/25 Rx release amlodipine 5 mg tablet 5 mg PO QAM 12/19/24 02/12/25 History rosuvastatin 20 mg tablet 20 mg PO HS 12/19/24 02/12/25 History Past Med/Surg History Problem List (Updated 02/12/25 @ 13:23 by Sumeet Monzon DO) Humeral fracture Moderate protein-calorie malnutrition (Acute) Polypharmacy (Acute) Underweight (BMI < 18.5) Age-related physical debility (Acute) Frailty syndrome in geriatric patient Simple chronic bronchitis Hyperlipidemia (Acute) 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) Hypertension (Chronic) 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) Carotid artery disease (Chronic) Hypertrophic cardiomyopathy (Chronic) Recurrent falls (Chronic) Anxiety (Chronic) Medical History COVID-19 Sigmoid diverticulitis Diverticulitis Uncontrolled hypertension Acute dehydration Weakness AAA (abdominal aortic aneurysm) Surgical History S/P tubal ligation Family History Other Diabetes Social History Smoking Status: Current every day smoker Tobacco Type: Cigarettes packs per day: 0.5; Cigarettes Per Day: 1/4 PPD; Second Hand Exposure: No; Do You Dip or Chew Tobacco: No; Hx Alcohol Use: No Hx Substance Use: No Preferred Language: Venezuelan Communication Ability: Effective Cell Operation Supervisor Required: No Beliefs That Will Affect Care: None Current Living Situation: Spouse Current Living Situation Comment: lives in 2 story home with Feels Safe at Home: Yes Assistive Devices: Walker and Other Review of Systems Review of Systems: All systems reviewed & are unremarkable except as noted in HPI & below Physical Exam Physical Exam: In general she is awake and alert pleasant thin frail and appearing somewhat uncomfortable from left shoulder pain. HEENT normocephalic atraumatic mucous membranes slightly dry. Cardio is regular with a fairly loud systolic murmur best at the left sternal border. No rubs or gallops. Lungs are clear without rales rhonchi or wheezes no accessory muscle use good effort. Abdomen is soft but with diffuse tenderness no guarding rebound or rigidity, she notes this is absolutely her chronic. Limbs are thin with a lot of muscle wasting, chronic arthritic appearing changes of most of her joints, but no focal joint tenderness no bony abnormalities no effusions no skin changes/abrasions/etc.etc. Her left shoulder is iced, and I did not palpate it given the x-ray documentation of the shoulder fracture and not wanting to cause more pain. No C-spine pain to palpation or range of motion. Neuro shows cranial nerves II through XII grossly intact gross motor and sensory are intact. Mental status shows good recent and remote recall. Somewhat flat affect. Results & Data Results & Data Vital Signs (Past 12 Hours) Vital Signs Temp Pulse Pulse Resp BP BP Pulse Ox 02/12/25 12:00 75 23 169/96 H 98 02/12/25 11:33 71 25 H 100 02/12/25 11:30 72 30 H 181/91 H 98 02/12/25 11:20 71 02/12/25 11:19 69 171/63 H 02/12/25 11:10 181/89 H 02/12/25 10:57 02/12/25 10:54 97.5 F L 70 18 181/89 H 96 02/12/25 10:54 70 18 181/89 H 96 O2 Del Method O2 Flow Rate 02/12/25 12:00 Room Air 02/12/25 11:33 02/12/25 11:30 02/12/25 11:20 02/12/25 11:19 02/12/25 11:10 02/12/25 10:57 Room Air 02/12/25 10:54 Room Air 0 02/12/25 10:54 Room Air Diagnostic Findings labs and diagnostics noted. Most recent echo from 09/05/2024 at [facility] 6569, severe concentric LV wall thickness increase, calcified aortic valve with mild stenosis, mild mitral regurg, mild tricuspid regurg, no evidence of pulmonary hypertension. The mild aortic stenosis appears to be new compared to prior echo. 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 PG Care Time/CCT Total # of Minutes Spent Total Time Spent with Patient: Total time spent is greater than 50% in coordination of care (as documented) at patient's floor/unit and/or counseling patient: Coding Level of Care Code 02153 INT INP/OBS CARE 3/75MIN Diagnoses Humeral fracture S42.309A Moderate protein-calorie malnutrition E44.0 Polypharmacy Z79.899 Underweight (BMI < 18.5) R63.6; Z68.1 Hypertension I10 Hypertension type: unspecified Hypertrophic cardiomyopathy I42.2 (5) Hypertension Hypertension type: unspecified Qualified Code(s): I10 - Essential (primary) hypertension
[2025-02-12] MEDS ORDERED: DOCUSATE SODIUM 100 MG CAP PO PRN (13:49)
[2025-02-12] MEDS ORDERED: ALBUTEROL HFA 8 GM INHALER INH PRN (13:49)
[2025-02-12] MEDS ORDERED: MELATONIN 3 MG TAB PO PRN (13:49)
[2025-02-12] MEDS ORDERED: ONDANSETRON INJ 2 MG/ML 2 ML VIAL IV PRN (13:49)
[2025-02-12] MEDS ORDERED: MAGNESIUM HYDROXIDE SUSP 30 ML UDC PO PRN (13:49)
[2025-02-12] MEDS ORDERED: ALUMINUM/MAGNESIUM SUSP 30 ML UDC PO PRN (13:49)
[2025-02-12] MEDS ORDERED: POLYETHYLENE (MIRALAX) 17 GM PACK PO PRN (13:49)
[2025-02-12] MEDS ORDERED: INFLUENZA VACC TS2025-26(65y+)/PF (IIV3) 0.5mL Syr IM ONE (14:23)
[2025-02-12] MEDS: KETOROLAC TROMETHAMINE 15 MG/ML VIAL IV PRN (14:26)
[2025-02-12] MEDS: LACTATED RINGER'S 1,000 ML IV SCH (14:26)
[2025-02-12] MEDS: ACETAMINOPHEN 325 MG TAB PO SCH (14:26)
--- NOTE | 2025-02-12 15:24 | Orthopedic Consultation ---
Date of Consultation February 12, 2025 Assessment & Plan (1) Closed fracture of shoulder: Patient has a comminuted, displaced left proximal humerus fracture. No plans for surgical invention at this time. The alignment is acceptable and adequate. Will follow closely with xrays weekly as needed. Will plan to re x-ray again in 7 to 10 days for alignment check and clinical exam. Plan to hold the shoulder still with no range of motion. Sling left upper extremity at all times. Can use the belly band as needed for comfort and positioning. Recommend ice to the left upper arm for relief of pain and also swelling improvement. Encouraged finger wrist and forearm range of motion as tolerated. She was cautioned that she may get edema all the way down into her fingers. Frequent movement and opening and closing her fist can help with stiffness that comes from the edema. No use of her left upper extremity. No pushing, pulling or lifting. May be comfortable sleeping upright in a chair or propped up on pillows in bed. Recommend physical therapy and Occupational Therapy while in house. Case management for disposition needs. Will continue to follow closely. She understands and agrees with the plan. Will reassess in the morning. Will discuss findings with Dr. Cooley. Thank you for this consultation. Approximately 30 minutes were spent reviewing laboratory work, radiographic imaging, obtaining a history and performing a physical exam and discussing the plan with the patient. Supervising Physician Co-Signing Physician Notes I, Dr. Cooley, saw and examined the patient. I discussed the management with my PA. I reviewed my PAs note and agree with the documented findings and attest to completing the substantive portion of medical decision making and plan of care I developed.I, Dr. Cooley, spent 30 minutes reviewing the chart, reading the imaging, evaluating the patient, discussing care plan with the patient and PA. PE: Neurovascular intact. +TTP shoulder. + Swelling about the shoulder. Deferred ROM shoulder secondarily to fracture. Multiple healing abrasions about the shoulder. + Bruising in the upper arm. History of Present Illness Reason for Consultation: Left proximal humerus fracture x 1 day Requesting Physician: Alejandro Cooley MD Attending Physician: Sumeet Monzon DO History of Present Illness Faith is a pleasant 74-year-old female who states that she "blacked out at home this morning and fell and hit her shoulder off of something". She presented to the emergency room with complaints of left shoulder pain, swelling and bruising. X-rays were performed and she was found to have a left proximal humerus fracture. She denies any other injuries at the time of her fall. She does not know why she blacked out. She has been admitted by the hospitalist service for observation. She states that she normally ambulates without an assistive device. She denies any numbness or tingling in the left upper extremity today. She states she just has pain with any type of movement of that left arm. She is right-hand dominant. Allergies Allergy/AdvReac Type Severity Reaction Status Date / Time salicylates AdvReac Intermediate INTOLERANCE Verified 12/19/24 18:15 Home Medications Medication Instructions Recorded Confirmed Type albuterol sulfate 90 mcg/actuation 2 puff inhalation Q6H PRN 08/23/22 02/12/25 History aerosol inhaler Shortness Of Breath Or Wheezing alprazolam 0.25 mg tablet 0.25 mg PO TID PRN anxiety 05/02/23 02/12/25 History paroxetine HCl 12.5 mg 12.5 mg PO QAM 05/02/23 02/12/25 History tablet,extended release 24 hr trazodone 100 mg tablet 100 mg PO HS 05/02/23 02/12/25 History aspirin 81 mg chewable tablet 81 mg PO QAM 09/21/23 02/12/25 History carvedilol 3.125 mg tablet 3.125 mg PO AMHS 09/21/23 02/12/25 History docusate sodium 100 mg capsule 100 mg PO BID PRN Constipation #30 02/25/24 02/12/25 Rx caps fluticasone propionate 50 2 spray NA DAILY PRN Nasal 02/25/24 02/12/25 Rx mcg/actuation nasal congestion #16 grams spray,suspension pantoprazole 40 mg tablet,delayed 40 mg PO BID #60 tabs 11/14/24 02/12/25 Rx release amlodipine 5 mg tablet 5 mg PO QAM 12/19/24 02/12/25 History rosuvastatin 20 mg tablet 20 mg PO HS 12/19/24 02/12/25 History Patient History Medical History COVID-19 Sigmoid diverticulitis Diverticulitis Uncontrolled hypertension Acute dehydration Weakness AAA (abdominal aortic aneurysm) Surgical History S/P tubal ligation Family History Other Diabetes Social History Smoking Status: Current every day smoker Tobacco Type: Cigarettes packs per day: 0.5; Cigarettes Per Day: 1/4 PPD; Second Hand Exposure: No; Do You Dip or Chew Tobacco: No; Hx Alcohol Use: No Hx Substance Use: No Preferred Language: Tajik Communication Ability: Effective Insurance Claims Specialist Required: No Beliefs That Will Affect Care: None Current Living Situation: Spouse Current Living Situation Comment: lives in 2 story home with Other Information That Helps Us Care for You: No Feels Safe at Home: Yes Safety Concerns: Feels Safe At This Time Assistive Devices: Denture - Upper Physical Exam Musculoskeletal: Exam focused on her left upper extremity: She has noticeable swelling, ecchymosis of the left proximal shoulder. No joint effusion is appreciated. The ecchymotic area is hard to touch. It is tender to palpation. She has no edema down into the elbow. She tolerates gentle passive elbow flexion and extension, passive pronation and supination of the forearm. She can actively make a fist and extend her fingers. She can cross her fingers as well as make the okay sign and hold against resistance. Distal pulses are 2+. Sensation is normal throughout the left upper extremity. She has 2 subacute abrasions noticeable 1 across the top of her shoulder and 1 on the anterior aspect of her shoulder. She states that she gets these "outbreaks of her skin". She is nontender to palpation of the elbow forearm wrist or fingers. She is nontender of the right upper extremity. She can also move her legs without discomfort. No evidence of trauma appreciated. Skin: + wound (Throughout bilateral upper extr emities, subacute, no evidence of infection,) and + ecchymosis (Left upper arm) Results & Data Vital Signs (Past 12 Hours) Vital Signs Temp Pulse Pulse Resp BP BP Pulse Ox 02/12/25 14:07 36.9 C 80 16 198/111 H 98 02/12/25 13:00 71 18 181/101 H 97 02/12/25 12:00 75 23 169/96 H 98 02/12/25 11:33 71 25 H 100 02/12/25 11:30 72 30 H 181/91 H 98 02/12/25 11:20 71 02/12/25 11:19 69 171/63 H 02/12/25 11:10 181/89 H 02/12/25 10:57 02/12/25 10:54 36.4 C L 70 18 181/89 H 96 02/12/25 10:54 70 18 181/89 H 96 O2 Del Method O2 Flow Rate 02/12/25 14:07 Room Air 02/12/25 13:00 Room Air 02/12/25 12:00 Room Air 02/12/25 11:33 02/12/25 11:30 02/12/25 11:20 02/12/25 11:19 02/12/25 11:10 02/12/25 10:57 Room Air 02/12/25 10:54 Room Air 0 02/12/25 10:54 Room Air Laboratory Results 02/12/25 02/12/25 02/12/25 13:04 12:58 11:12 WBC RBC Hgb POC Hgb 12.2 Hct POC Hct 36 L MCV MCH MCHC RDW Std Deviation RDW Coeff of Yamile Plt Count MPV Immature Gran % (Auto) Neut % (Auto) Lymph % (Auto) [place] % (Auto) Eos % (Auto) Baso % (Auto) Neut # (Auto) Lymph # (Auto) [place] # (Auto) Eos # (Auto) Baso # (Auto) Immature Gran # (Auto) PT INR APTT PTT Ratio POC Sodium 137 Sodium POC Potassium 3.4 Potassium POC Chloride 100 L Chloride Carbon Dioxide POC Total CO2 28 Anion Gap POC Anion Gap 14.0 L POC BUN 32 H BUN Creatinine POC Creatinine 1.2 Est Cr Clr Drug Dosing eGFR BUN/Creatinine Ratio Glucose POC Glucose (other) 101 H Calcium POC Ioniz Calcium Maty 1.11 L Total Bilirubin AST ALT Alkaline Phosphatase Troponin I High Sens 19.3 H Total Protein Albumin Globulin Albumin/Globulin Ratio Lipase Urine Color Yellow Urine Appearance Cloudy A Urine pH 7.0 Ur Specific [place] 1.011 Urine Protein Trace H Urine Glucose (UA) Negative Urine Ketones Negative Urine Blood Negative Urine Nitrite Negative Urine Bilirubin Negative Urine Urobilinogen Negative Ur Leukocyte Esterase Negative Urine WBC (Auto) 0-5 Urine RBC (Auto) 0-2 U Hyaline Cast (Auto) 0-2 U Epithel Cells (Auto) 0-2 Urine Bacteria (Auto) None Seen Urine Comment 02/12/25 11:01 WBC 10.55 RBC 4.05 L Hgb 12.3 POC Hgb Hct 37.6 POC Hct MCV 92.8 MCH 30.4 MCHC 32.7 RDW Std Deviation 42.3 RDW Coeff of Yamile 12.3 Plt Count 133 MPV 10.8 Immature Gran % (Auto) 0.4 Neut % (Auto) 85.5 Lymph % (Auto) 7.7 [place] % (Auto) 5.6 Eos % (Auto) 0.3 Baso % (Auto) 0.5 Neut # (Auto) 9.03 H Lymph # (Auto) 0.81 L [place] # (Auto) 0.59 Eos # (Auto) 0.03 Baso # (Auto) 0.05 Immature Gran # (Auto) 0.04 PT 11.2 INR 1.1 APTT 23 PTT Ratio 0.8 POC Sodium Sodium 137 POC Potassium Potassium 3.4 L POC Chloride Chloride 101 Carbon Dioxide 29 POC Total CO2 Anion Gap 7 POC Anion Gap POC BUN BUN 29 H Creatinine 1.02 POC Creatinine Est Cr Clr Drug Dosing 33.3 eGFR 58.45 BUN/Creatinine Ratio 28.4 H Glucose 102 H POC Glucose (other) Calcium 9.2 POC Ioniz Calcium Maty Total Bilirubin 0.6 AST 23 ALT 32 Alkaline Phosphatase 54 Troponin I High Sens 20.4 H Total Protein 6.7 Albumin 4.2 Globulin 2.5 Albumin/Globulin Ratio 1.7 Lipase 49 Urine Color Urine Appearance Urine pH Ur Specific [place] Urine Protein Urine Glucose (UA) Urine Ketones Urine Blood Urine Nitrite Urine Bilirubin Urine Urobilinogen Ur Leukocyte Esterase Urine WBC (Auto) Urine RBC (Auto) U Hyaline Cast (Auto) U Epithel Cells (Auto) Urine Bacteria (Auto) Urine Comment Diagnostic Findings Chest X-Ray 02/12/25 10:57 XR chest 1V portable CLINICAL HISTORY: Trauma COMPARISON STUDY: 12/19/2024 FINDINGS: Heart size and pulmonary vasculature are normal. No consolidation or pleural effusion. No pneumothorax. There is an acute fracture at the left h umeral head. IMPRESSION: 1. Acute fracture at the left humeral head. 2. No other acute findings seen at the chest. ACT 112: Negative or not required by law. Electronically signed by: Jimbo Rojo M.D. 02/12/2025 11:09 AM Pelvis X-Ray 02/12/25 10:57 XR pelvis 1-2V routine CLINICAL HISTORY: Trauma COMPARISON: 12/25/2023 FINDINGS: Bowel artifact overlies the pelvis and skin fold artifact overlies the hips. No displaced fracture or dislocation seen. IMPRESSION: No fracture seen. ACT 112: Negative or not required by law. Electronically signed by: Jimbo Rojo M.D. 02/12/2025 11:10 AM Shoulder X-Ray 02/12/25 10:57 XR shoulder LT min 2V routine CLINICAL HISTORY: l shoulder pain COMPARISON: None FINDINGS: There is an acute mildly comminuted mildly displaced fracture at the proximal humerus involving the surgical neck and the greater tuberosity. There is mild impaction and apex anterior angulation. No dislocation. IMPRESSION: Acute fracture proximal left humerus. ACT 112: Negative or not required by law. Electronically signed by: Jimbo Rojo M.D. 02/12/2025 11:[address] 02/12/25 10:59 CT SCAN OF THE CERVICAL SPINE CLINICAL HISTORY: Fall. COMPARISON STUDY: Cervical spine CT December 19, 2024. TECHNIQUE: CT scan of the cervical spine is performed from the skull base to the upper thoracic spine. Images are reviewed in the axial, sagittal, and coronal planes. IV contrast was not administered for this examination. A dose lowering technique was utilized adhering to the principles of ALARA. CT DOSE: 1054.25 mGy.cm FINDINGS: Mild anterolisthesis of C4 on C5 is unchanged. Alignment of the cervical spine is unchanged since prior CT. There are no acute cervical spine fractures. Severe multilevel facet arthrosis is present. There is moderate to severe multilevel disc space narrowing and endplate osteophytosis within the cervical spine. There are no suspicious osseous lesions. No prevertebral edema is present. Emphysema is incidentally noted within the visualized portions of the lung apices. IMPRESSION: No acute cervical spine fracture or subluxation. ACT 112: Negative or not required by law. Electronically signed by: Chris Carter M.D. 02/12/2025 11:[address] 02/12/25 10:59 CT head/brain wo con CLINICAL HISTORY: 74 years-old Female with doss. Acute headache status post fall TECHNIQUE: Multiple axial CT images of the head were obtained without contrast. A dose lowering technique was utilized adhering to the principles of ALARA. COMPARISON: CT cervical spine same day FINDINGS: No acute intracranial hemorrhage, midline shift, intracranial mass, hydrocephalus, territorial ischemia or abnormal extra-axial collection. Partially empty sella. Mild involutional changes. The calvarium is intact. The paranasal sinuses, mastoid air cells, and middle ear cavities are clear. IMPRESSION: No acute intracranial abnormality or calvarial fracture. ACT 112: Negative or not required by law. The above report was generated using voice recognition software. It may contain grammatical, syntax or spelling errors. Electronically signed by: Olu Villagran M.D. 02/12/2025 11:42 AM (1) Closed fracture of shoulder Encounter type: initial encounter Laterality: left Qualified Code(s): S42.92XA - Fracture of left shoulder girdle, part unspecified, initial encounter for closed fracture
--- NOTE | 2025-02-12 15:25 | Electrocardiogram Report ---
Test Reason : Blood Pressure : */* mmHG Vent. Rate : 72 BPM Atrial Rate : 72 BPM P-R Int : 172 ms QRS Dur : 74 ms QT Int : 424 ms P-R-T Axes : 77 -4 85 degrees QTcB Int : 464 ms Normal sinus rhythm Biatrial enlargement Left ventricular hypertrophy Cannot rule out Septal infarct (cited on or before 03-Jul-2024) When compared with ECG of 19-Dec-2024 14:02, Criteria for Inferior infarct are no longer Present Questionable change in initial forces of Septal leads Confirmed by Bandar May ([id number]) on 02/12/2025 3:25:06 PM Referred By: REFERRED SELF Confirmed By: Bandar May
[2025-02-12] MEDS: MoRPHine SULFATE 4 MG/ML 1 ML CARP\\VIAL IV PRN (17:11)
[2025-02-12] MEDS: HEPARIN SOD 5,000 UNIT/0.5 ML VIAL SQ SCH (20:45)
[2025-02-12] MEDS: ROSUVASTATIN CALCIUM 20 MG TAB PO SCH (20:46)
[2025-02-13 06:16] LABS: Hematocrit (blood only) 29.8 % (37.0-47.0); Hemoglobin 10.3 g/dl (12.0-16.0); Immature Granulocytes # (auto) 0.01 K/uL (0.01-0.20); Immature Granulocytes % (auto) 0.1 %; Mean Corpuscular Hemoglobin 32.1 pg (25.0-34.0); Mean Corpuscular Volume 92.8 fL (80.0-100.0); Platelet Count 111 K/uL (130-400); RDW Standard Deviation 43.0 fL (36.4-46.3); Red Blood Count 3.21 M/uL (4.20-5.40); White Blood Count 7.36 K/ul (4.8-10.8)
[2025-02-13 06:38] LABS: Anion Gap 7.0 (3-11); Blood Urea Nitrogen 39.0 mg/dl (6-23); Calcium 8.5 mg/dl (8.6-10.3); Carbon Dioxide 28.0 mmol/L (21-32); Chloride 104.0 mmol/L (98-107); Creatinine Clr Calc Pharmacy 21.8 ml/min; Glucose 106.0 mg/dl (70-99(Fasting)); Potassium 3.8 mmol/L (3.5-5.1); Sodium 139.0 mmol/L (136-145)
--- NOTE | 2025-02-13 08:00 | Hospitalist Progress Note ---
Date of Service February 13, 2025 Assessment & Plan (1) Closed fracture of shoulder: (2) Moderate protein-calorie malnutrition: (3) Polypharmacy: (4) Underweight (BMI < 18.5): (5) Age-related physical debility: (6) Frailty syndrome in geriatric patient: (7) Elevated troponin level not due myocardial infarction: Plan In summary this is a 74-year-old female who presented to the [facility] after an unwitnessed fall at home with suspected syncope resulting in a proximal left humeral neck fracture #Unwitnessed Syncope Precipitating event resulting in the patient's injury as discussed below; may be consequential of orthostasis as has been noted in previous hospitalizations however with a previous diagnosis of hypertrophic cardiomyopathy, a dynamic left ventricular outflow obstruction cannot be excluded -Volume resuscitate to euvolemic state -Pending TTE #Left proximal humeral neck fracture after fall Orthopedic surgery consulted, nonoperative management recommended -Continue Toradol 15 mg IV every 6 hours scheduled through 02/18 or discharge, whichever occurs first -Continue Acetaminophen 1000 mg p.o. every 8 hours -Continue hydromorphone 0.25 mg IV every 2 hours as needed for breakthrough pain #Moderate protein calorie malnutrition // Geriatric frailty and physical debility Dietary consulted for recommendations to optimize caloric intake, especially for healing with the patient's current fracture #Queen esophagus Continue previous medical management #CAD with hyperlipidemia and hypertension // Hypertrophic cardiomyopathy Continue previous medical management, reassess with TTE as above Admission and Anticipated Discharge Date Admission Date: February 12, 2025 Subjective Ms. 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 No acute overnight events; patient is feeling improved this morning though continues to have associated discomfort. Review of Systems Review of Systems: Review of cardiovascular, pulmonary, gastrointestinal, neurologic, musc uloskeletal systems was unremarkable other than as detailed above Physical Exam Physical Exam: General: Elderly female in no acute distress Vital Signs: Reviewed HEENT: Mild temporal wasting; extraocular muscles intact, pupils equally round and reactive to light Pulmonary: Symmetric chest wall excursion that is unrestricted; clear to auscultation bilaterally Cardiovascular: Regular rate and rhythm with grade 2/6 systolic murmur best heard in the left second intercostal space parasternally; no rubs or gallops; bilateral radial and posterior tibial pulse 2+ with brisk capillary refill Musculoskeletal: Left proximal humeral deformity with associated ecchymosis, tenderness to palpation; left shoulder and elbow range of motion was deferred given this injury; neurovascularly intact distal of the elbow Neurologic: Cranial nerves II through XII grossly intact; no discernible focal weakness other than diminished right upper extremity strength associated with the patient's fracture as detailed above Results & Data Results & Data Vital Signs (Past 12 Hours) Vital Signs Temp Pulse Pulse Resp BP Pulse Ox O2 Del Method 02/13/25 05:13 76 02/13/25 03:24 37.0 C 73 18 149/76 H 93 Room Air 02/12/25 23:19 37.2 C 71 18 107/64 91 Room Air 02/12/25 20:19 Room Air PG Care Time/CCT Total # of Minutes Spent Total Time Spent with Patient: Total time spent is greater than 50% in coordination of care (as documented) at patient's floor/unit and/or counseling patient: Coding Level of Care Code 03503 SUB INP/OBS CARE 235MIN Diagnoses Closed fracture of shoulder S42.92XA Encounter type: initial encounter Laterality: left Moderate protein-calorie malnutrition E44.0 Polypharmacy Z79.899 Underweight (BMI < 18.5) R63.6; Z68.1 Age-related physical debility R54 Frailty syndrome in geriatric patient R54 Elevated troponin level not due myocardial infarction R79.89 (1) Closed fracture of shoulder Encounter type: initial encounter Laterality: left Qualified Code(s): S42.92XA - Fracture of left shoulder girdle, part unspecified, initial encounter for closed fracture
[2025-02-13] MEDS: KETOROLAC TROMETHAMINE 15 MG/ML VIAL IV SCH (08:32)
[2025-02-13] MEDS: PARoxetine HCl CONTROLLED REL 12.5 MG TABCR PO SCH (08:33)
[2025-02-13] MEDS: ASPIRIN 81 MG CHEW PO SCH (08:35)
--- NOTE | 2025-02-13 10:05 | Orthopedic Progress Note ---
Date of Service February 13, 2025 Assessment & Plan (1) Closed fracture of shoulder: Plan: Patient has a comminuted, displaced left proximal humerus fracture. No plans for surgical invention at this time. The alignment is acceptable and adequate. Will follow closely with xrays weekly as needed. Plan to hold the shoulder still with no range of motion. Sling left upper extremity when out of bed, can remove when in bed as needed for comfort. Recommend ice to the left upper arm for relief of pain and also swelling improvement. Encouraged finger wrist and forearm range of motion as tolerated. No use of her left upper extremity. No pushing, pulling or lifting. May be comfortable sleeping upright in a chair or propped up on pillows in bed. Recommend physical therapy and Occupational Therapy while in house. Case management for disposition needs. Will sign off at this time. Please call [phone] or Arthur Text me with questions. She understands and agrees with the plan. Dr. Cooley present for today's evaluation. Follow up as scheduled next week. Admission and Anticipated Discharge Date Admission Date: February 12, 2025 Supervising Physician Co-Signing Physician Notes I, Dr. Cooley, saw and examined the patient with my PA. I discussed the management with my PA. I reviewed my PAs note and agree with the documented findings and attest to completing the substantive portion of medical decision making and plan of care I developed. Subjective Patient is resting in bed. She seems groggy today. She frequently closes her eyes and falls asleep. She states she has never had pain like she has had in her left shoulder. She is relatively comfortable at rest. Physical Exam Musculoskeletal: Exam of her left upper extremity: Continued with edema and ecchymosis of the left upper arm. No range of motion of the left shoulder was attempted today. Active and passive range of motion tolerated at the elbow, wrist, forearm and fingers. No distal edema of her left upper extremity Capillary refill is brisk. 2+ radial pulse Motor and sensory function is normal. Sling on left arm. Results & Data Vital Signs (Past 12 Hours) Vital Signs Temp Pulse Pulse Resp BP Pulse Ox O2 Del Method 02/13/25 08:55 Room Air 02/13/25 08:27 70 16 121/67 91 Room Air 02/13/25 08:16 74 02/13/25 05:13 76 02/13/25 03:24 37.0 C 73 18 149/76 H 93 Room Air 02/12/25 23:19 37.2 C 71 18 107/64 91 Room Air (1) Closed fracture of shoulder Encounter type: initial encounter Laterality: left Qualified Code(s): S42.92XA - Fracture of left shoulder girdle, part unspecified, initial encounter for closed fracture
--- NOTE | 2025-02-13 12:42 | Communication Note ---
Date of Service: February 13, 2025 Tertiary Survey: Objective: All labs and imaging reports reviewed. Physical Exam: General: - Alert: Yes - Oriented: Yes - GCS 15 HEENT: - No pain/tenderness - No lacerations/abrasions - No numbness/tingling - PERRL. No relative afferent pupillary defect. Normal Visual Acuity. No visual field cuts. No nystagmus. No contact lenses. Normal hearing. No facial asymmetry. Normal palatal elevation, uvula midline. Midline tongue protrusion. - Mucous membranes moist. Neck: - Shoulder shrug with 4/5 strength left compared to 5/5 right due to left humer al pain - Midline Tenderness: No - Cleared C-Spine: Yes Thorax: - Pain/Tenderness: None - Lacerations/Abrasions: None - Swelling/Ecchymosis: None - Air/Bony Crepitus: None Cardiopulmonary: - Regular rate and rhythm without rubs or gallops; grade 3/6 systolic murmur best heard in the right second intercostal space parasternally - Lungs clear to auscultation bilaterally - Symmetric and unrestricted chest wall excursion Abdomen - Pain/Tenderness: None - Lacerations/Abrasions: None - No abdominal distension - Abdominal rigidity/guarding: None - Bowel Sounds: present, with normal frequency and pitch - Pelvis stable Back/Spine - Lacerations/Abrasions: None - Swelling/Ecchymosis: None - Pain/Tenderness: None - Step-offs: None Extremities: - RUE: No deformity. No lacerations/abrasions. No swelling/ecchymosis. No pain/tenderness. Full active and passive range of motion. Lunch [employer] strength, elbow flexion/extension, shoulder flexion/extension/abduction/adduction/external rotation/internal rotation intact with 5/5 strength. Sensation intact to soft touch without deficit. Radial pulse 2+, capillary refill <2 seconds. - LUE: apparent deformation of the proximal humerus with overlying ecchymosis, no palpable hematoma. No lacerations/abrasions. Painful to palpation along the proximal humeral shaft. ROM of the shoulder and elbow deferred given known fracture. 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 Sensation intact to soft touch without deficit. Radial pulse 2+, capillary refill <2 seconds. - LLE: No deformity. No lacerations/abrasions. No swelling/ecchymosis. No pain/tenderness. Full active and passive range of motion. Hip flexion/extension, knee flexion/extension, ankle dorsiflexion/plantarflexion with 5/5 strength. Sensation intact to soft touch without deficit. PT pulse 2+, capillary refill<2 seconds. - RLE: No deformity. No lacerations/abrasions. No swelling/ecchymosis. No pain/tenderness. Full active and passive range of motion. Hip flexion/extension, knee flexion/extension, ankle dorsiflexion/plantarflexion with 5/5 strength. Sensation intact to soft touch without deficit. PT pulse 2+, capillary refill<2 seconds. Mental status adequate for Full Exam: Yes C-Spine Cleared (Radiologically AND Clinically): Yes
[2025-02-13] MEDS: HYDROmorphone INJ 0.5 MG/0.5 ML SYR IV PRN (17:44)
[2025-02-13] MEDS: ACETAMINOPHEN 500 MG TAB PO SCH (20:37)
--- NOTE | 2025-02-14 07:48 | Hospitalist Progress Note ---
Date of Service February 14, 2025 Assessment & Plan (1) Closed fracture of shoulder: (2) Moderate protein-calorie malnutrition: (3) Polypharmacy: (4) Underweight (BMI < 18.5): (5) Age-related physical debility: (6) Frailty syndrome in geriatric patient: (7) Elevated troponin level not due myocardial infarction: Plan In summary this is a 74-year-old female who presented to the [facility] after an unwitnessed fall at home with suspected syncope resulting in a proximal left humeral neck fracture #Unwitnessed Syncope Precipitating event resulting in the patient's injury as discussed below; may be consequential of orthostasis as has been noted in previous hospitalizations however with a previous diagnosis of hypertrophic cardiomyopathy, a dynamic left ventricular outflow obstruction cannot be excluded -Volume resuscitate to euvolemic state -Pending TTE #Left proximal humeral neck fracture after fall Orthopedic surgery consulted, nonoperative management recommended -Continue Toradol 15 mg IV every 6 hours scheduled through 02/18 or discharge, whichever occurs first -Continue Acetaminophen 1000 mg p.o. every 8 hours -Change hydromorphone 0.25 mg IV to hydromorphone 1 mg p.o. 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 Chavis is a 74-year-old female whose active medical conditions include moderate protein calorie malnutrition, polypharmacy, simple chronic bronchitis, frailty syndrome and age-related physical debility, Queen esophagus among other chronic medical conditions who presented to the [facility] on 02/12 after an unwitnessed fall at home with syncope resulting in a left proximal humeral neck fracture. No acute overnight events; pain is well controlled. Intermittently somnolent during the exam. Review of Systems Review of Systems: Review of cardiovascular, pulmonary, gastrointestinal, neurologic, musculoskeletal systems was unremarkable other than as detailed above Physical Exam Physical Exam: General: Elderly female in no acute distress Vital Signs: Reviewed HEENT: Mild temporal wasting; extraocular muscles intact, pupils equally round and reactive to light Pulmonary: Symmetric chest wall excursion that is unrestricted; clear to auscultation bilaterally Cardiovascular: Regular rate and rhythm with grade 2/6 systolic murmur best heard in the left second intercostal space parasternally; no rubs or gallops; bilateral radial and posterior tibial pulse 2+ with brisk capillary refill Musculoskeletal: Left proximal humeral deformity with associated ecchymosis, tenderness to palpation; left shoulder and elbow range of motion was deferred given this injury; neurovascularly intact distal of the elbow Neurologic: Cranial nerves II through XII grossly intact; no discernible focal weakness other than diminished right upper extremity strength associated with the patient's fracture as detailed above Results & Data Results & Data Vital Signs (Past 12 Hours) Vital Signs Temp Pulse Pulse Resp BP Pulse Ox O2 Del Method 02/14/25 07:00 79 02/14/25 03:45 76 02/14/25 02:53 36.7 C 70 17 193/84 H 92 Room Air 02/13/25 23:50 36.8 C 68 17 154/80 H 94 Room Air 02/13/25 20:37 36.8 C 76 16 164/85 H 93 Room Air PG Care Time/CCT Total # of Minutes Spent Total Time Spent with Patient: Total time spent is greater than 50% in coordination of care (as documented) at patient's floor/unit and/or counseling patient: Coding Level of Care Code 26374 SUB INP/OBS CARE 2/35MIN Diagnoses Closed fracture of shoulder S42.92XA Encounter type: initial encounter Laterality: left Moderate protein-calorie malnutrition E44.0 Polypharmacy Z79.899 Underweight (BMI < 18.5) R63.6; Z68.1 Age-related physical debility R54 Frailty syndrome in geriatric patient R54 Elevated troponin level not due myocardial infarction R79.89 (1) Closed fracture of shoulder Encounter type: initial encounter Laterality: left Qualified Code(s): S42.92XA - Fracture of left shoulder girdle, part unspecified, initial encounter for closed fracture
--- NOTE | 2025-02-14 12:07 | XCELERA ---
[id number]
[2025-02-15 07:26] VITALS: BP 150/78; PULSE 66; RESP 16; TEMP 98.1; O2SAT 95
[2025-02-15] MEDS: FLUTICASONE PROPIONATE NA SPR 16 GM BTL PRN (07:49)
--- NOTE | 2025-02-15 08:05 | Hospitalist Progress Note ---
Date of Service February 15, 2025 Assessment & Plan (1) Closed fracture of shoulder: (2) Moderate protein-calorie malnutrition: (3) Polypharmacy: (4) Underweight (BMI < 18.5): (5) Age-related physical debility: (6) Frailty syndrome in geriatric patient: (7) Elevated troponin level not due myocardial infarction: Plan In summary this is a 74-year-old female who presented to the [facility] after an unwitnessed fall at home with suspected syncope resulting in a proximal left humeral neck fracture #Unwitnessed Syncope Precipitating event resulting in the patient's injury as discussed below; may be consequential of orthostasis as has been noted in previous hospitalizations however with a previous diagnosis of hypertrophic cardiomyopathy, a dynamic left ventricular outflow obstruction cannot be excluded -Volume resuscitate to euvolemic state -Pending TTE #Left proximal humeral neck fracture after fall Orthopedic surgery consulted, nonoperative management recommended -Continue Toradol 15 mg IV every 6 hours scheduled through 02/18 or discharge, whichever occurs first -Continue Acetaminophen 1000 mg p.o. every 8 hours -Change hydromorphone 0.25 mg IV to hydromorphone 1 mg p.o. 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 Chavis is a 74-year-old female whose active medical conditions include moderate protein calorie malnutrition, polypharmacy, simple chronic bronchitis, frailty syndrome and age-related physical debility, Queen esophagus among other chronic medical conditions who presented to the [facility] on 02/12 after an unwitnessed fall at home with syncope resulting in a left proximal humeral neck fracture. No acute overnight events; pain is well controlled. Intermittently somnolent during the exam. Review of Systems Review of Systems: Review of cardiovascular, pulmonary, gastrointestinal, neurologic, musculoskeletal systems was unremarkable other than as detailed above Physical Exam Physical Exam: General: Elderly female in no acute distress Vital Signs: Reviewed HEENT: Mild temporal wasting; extraocular muscles intact, pupils equally round and reactive to light Pulmonary: Symmetric chest wall excursion that is unrestricted; clear to auscultation bilaterally Cardiovascular: Regular rate and rhythm with grade 2/6 systolic murmur best heard in the left second intercostal space parasternally; no rubs or gallops; bilateral radial and posterior tibial pulse 2+ with brisk capillary refill Musculoskeletal: Left proximal humeral deformity with associated ecchymosis, tenderness to palpation; left shoulder and elbow range of motion was deferred given this injury; neurovascularly intact distal of the elbow Neurologic: Cranial nerves II through XII grossly intact; no discernible focal weakness other than diminished right upper extremity strength associated with the patient's fracture as detailed above Results & Data Results & Data Vital Signs (Past 12 Hours) Vital Signs Temp Pulse Resp BP Pulse Ox O2 Del Method 02/15/25 07:19 36.7 C 66 16 150/78 H 95 Room Air 02/14/25 21:40 Room Air 02/14/25 21:39 36.9 C 71 18 164/83 H 93 Room Air 02/14/25 21:04 Room Air 02/14/25 20:39 36.5 C 70 17 130/68 94 Room Air PG Care Time/CCT Total # of Minutes Spent Total Time Spent with Patient: Total time spent is greater than 50% in coordination of care (as documented) at patient's floor/unit and/or counseling patient: Coding Diagnoses Closed fracture of shoulder S42.92XA Encounter type: initial encounter Laterality: left Moderate protein-calorie malnutrition E44.0 Polypharmacy Z79.899 Underweight (BMI < 18.5) R63.6; Z68.1 Age-related physical debility R54 Frailty syndrome in geriatric patient R54 Elevated troponin level not due myocardial infarction R79.89 (1) Closed fracture of shoulder Encounter type: initial encounter Laterality: left Qualified Code(s): S42.92XA - Fracture of left shoulder girdle, part unspecified, initial encounter for closed fracture
[2025-02-15 08:37] LABS: Albumin Level 3.4 gm/dl (3.4-5.0); Anion Gap 5.0 (3-11); Blood Urea Nitrogen 27.0 mg/dl (6-23); Calcium 8.5 mg/dl (8.6-10.3); Carbon Dioxide 31.0 mmol/L (21-32); Chloride 105.0 mmol/L (98-107); Creatinine Clr Calc Pharmacy 38.4 ml/min; Glucose 104.0 mg/dl (70-99(Fasting)); Potassium 3.4 mmol/L (3.5-5.1); Sodium 141.0 mmol/L (136-145)
--- NOTE | 2025-02-15 17:32 | Discharge Summary ---
Discharge Summary Date of Service February 15, 2025 Principal Dx & Hospital Course #1 = Principal Diagnosis (1) Closed fracture of shoulder: (2) Moderate protein-calorie malnutrition: (3) Polypharmacy: (4) Underweight (BMI < 18.5): (5) Age-related physical debility: (6) Frailty syndrome in geriatric patient: (7) Elevated troponin level not due myocardial infarction: Plan In summary this is a 74-year-old female who presented to the [facility] after an unwitnessed fall at home with suspected syncope resulting in a proximal left humeral neck fracture #Unwitnessed Syncope Precipitating event resulting in the patient's injury as discussed below; the patient was noted to have orthostatic vital signs, and as such their amlodipine was held at the time of discharge with further discussion encouraged with their PCP regarding continued management; TTE obtained on 02/14 was without significant pathologic change #Left proximal humeral neck fracture after fall Orthopedic surgery consulted, nonoperative management recommended -Continue Acetaminophen 1000 mg p.o. every 8 hours -Continue hydromorphone 1 mg p.o. every 6 hours as needed for severe breakthrough pain; we discussed at great length the importance of being careful with these medications, especially considering her frailty and concomitant use of prescribed benzodiazepines (which again the patient was encouraged to discuss this with their PCP in follow up, given she has now presented with a ground level fall resulting in an osteoporotic fracture as we discussed risks of during her prior hospitalization) #Moderate protein calorie malnutrition // Geriatric frailty and physical debility Dietary consulted for recommendations to optimize caloric intake, especially for healing with the patient's current fracture #Queen esophagus Continue previous medical management Admission HPI Per Admitting Provider patient is a very pleasant 74-year-old female who presents after syncope. She notes she was walking over to the bedroom, and then got lightheaded/felt like she was going to pass out. She notes this happens frequently, but most of the time she is able to make it to the bed first. This time she was not able to and ended up collapsing to the floor with a syncopal event. She had no preceding chest pain, chest pressure, or shortness of breath. Whenever she woke up she was immediately oriented and the only thing new/different was left shoulder pain. She has no neck pain, no chest pain, no pain in any other joint or limb. She does have abdominal painbut notes this is chronic and unchanged over about the last 2 years since a prior abdominal surgery. She notes as far as oral intake she maybe drinks 40 ounces of fluid a day. Discharge Exam General: Elderly female in no acute distress Vital Signs: Reviewed HEENT: Mild temporal wasting; extraocular muscles intact, pupils equally round and reactive to light Pulmonary: Symmetric chest wall excursion that is unrestricted; clear to auscultation bilaterally Cardiovascular: Regular rate and rhythm with grade 2/6 systolic murmur best heard in the left second intercostal space parasternally; no rubs or gallops; bilateral radial and posterior tibial pulse 2+ with brisk capillary refill Musculoskeletal: Left proximal humeral deformity with associated ecchymosis, tenderness to palpation; left shoulder and elbow range of motion was deferred given this injury; neurovascularly intact distal of the elbow Neurologic: Cranial nerves II through XII grossly intact; no discernible focal weakness other than diminished right upper extremity strength associated with the patient's fracture as detailed above Discharge Plan Discharge Items Patient Disposition: Home - Home Health Services Reason For Visit: SYNCOPE, FRACTURE Discharge Diagnosis: Left proximal humerus fracture // Orthostatic hypotension Condition on Discharge: Fair Activity: Per Instructions section Non-emergency contact: Surgeon Call non-emergency contact if: your symptoms worsen and your pain is not controlled Follow-up/Referrals: Malena Perez PA-C [Physician Enrollment Counselor] - 02/22/25 10:45 am Adriel Whitaker MD [Primary Care Provider] - Diet: Regular Addtl Attending Provider Instructions: You were admitted to the [facility] due to a fall resulting in a left proximal humeral neck fracture. Regarding this fracture, you were evaluated by [facility] who advised against surgical intervention based on the fracture pattern, and provided further recommendations for discharge care and follow up in their office. After discussion at length, you elected for Home Health services to assist with your continued recovery rather than Long Term or Acute Rehabiliation care. Please follow all of [facility]'s recommendations as out lined below, and follow up with their office as scheduled. You were found to have a degree of orthostatic hypotension during your hospitalization, which may have contributed to your fall. We recommend holding your Amlodipine until seen by your primary care provider in follow up from this hospitalization, to avoid any recurrent events related to this. Furthermore, as recommended previously, we advise a discussion with your PCP regarding continued use of alprazolam in the outpatient setting, given its association with increased risk of falls, especially while also taking trazodone. Addtl Game Engineer Provider Instructions: Orthopedic instructions: - Sling left arm at all times. Belly band as needed for comfort and positioning - No use of left arm. No pushing, pulling or lifting. - Ice and elevation as needed for swelling to the left shoulder and upper extremity. - May do gentle range of motion of your fingers, wrist, forearm and elbow as tolerated. -May be comfortable sleeping upright in a chair propped up on pillows when in bed. -Call [phone] with any increased pain, swelling, questions or concerns regarding her left arm. - Follow-up as scheduled with Malena Perez PA-C at [facility] orthopedics. Pending Studies at Discharge: No Stand-Alone Forms: [facility], Pain - Opioid Pain Management Medications and DC Order Prescriptions: New polyethylene glycol 3350 [Miralax] 17 gram Powder In Packet 17 g PO DAILY PRN (Reason: constipation) 14 Days Qty: 14 0RF acetaminophen [Tylenol Extra Strength] 500 mg Tablet 1,000 mg PO TID 14 Days Qty: 84 0RF hydromorphone [Dilaudid] 2 mg Tablet 1 mg PO Q6H PRN (Reason: severe breakthrough pain) 4 Days Qty: 10 0RF Continued pantoprazole 40 mg tablet,delayed release (DR/EC) 40 mg PO BID Qty: 60 5RF albuterol sulfate 90 mcg/actuation HFA aerosol inhaler 2 puff INHALATION Q6H PRN (Reason: Shortness Of Breath Or Wheezing) alprazolam 0.25 mg tablet 0.25 mg PO TID PRN (Reason: anxiety ) trazodone 100 mg tablet 100 mg PO HS paroxetine HCl 12.5 mg tablet extended release 24 hr 12.5 mg PO QAM carvedilol 3.125 mg tablet 3.125 mg PO AMHS aspirin 81 mg Tablet,Chewable 81 mg PO QAM fluticasone propionate 50 mcg/actuation [place],Suspension 2 spray NA DAILY PRN (Reason: Nasal congestion) Qty: 16 0RF docusate sodium 100 mg Capsule 100 mg PO BID PRN (Reason: Constipation) Qty: 30 0RF rosuvastatin 20 mg tablet 20 mg PO HS Held amlodipine 5 mg tablet 5 mg PO QAM Hold Instructions: Resume on 03/05/25. Discuss resuming with PCP Discharge Orders: Discharge Order (Routine); Ordered 02/15/25 Ordered By: Fransisco Raines/Other Patient Handouts: Causes of Syncope, Syncope Tx Heart Admission Data Admit Date/Time: 02/12/25 12:45 Attending Provider: Fransisco Iniguez Admit Provider: Sumeet Monzon Primary Care Provider: Adriel Whitaker Other Providers: Sumeet Monzon; Cipriano Cooley; [facility]; [place]; [facility] Fax Other Interventions: Discharge Summary Assessment (RN) Last Done: 02/15/25 13:48 Hospital Stay Data Consultations 02/12/25 11:59 ED Decision to Admit Stat 02/12/25 12:45 Consult Orthopedic Surgery Routine Diagnostic Imagining Performed 02/12/25 10:59 CT cervical spine wo con Stat CT head/brain wo con Stat Pending Results Patient Have Any Pending Studies at Discharge: No Discharge Instructions Given to Patient (Per Discharging Provider) You were admitted to the [facility] due to a fall resulting in a left proximal humeral neck fracture. Regarding this fracture, you were evaluated by [facility] who advised against surgical intervention based on the fracture pattern, and provided further recommendations for discharge care and follow up in their office. After discussion at length, you elected for Home Health services to assist with your continued recovery rather than Long Term or Acute Rehabiliation care. Please follow all of [facility]'s recommendations as outlined below, and follow up with their office as scheduled. You were found to have a degree of orthostatic hypotension during your hospitalization, which may have contributed to your fall. We recommend holding your Amlodipine until seen by your primary care provider in follow up from this hospitalization, to avoid any recurrent events related to this. Furthermore, as recommended previously, we advise a discussion with your PCP regarding continued use of alprazolam in the outpatient setting, given its association with increased risk of falls, especially while also taking trazodone. Total Time Total Time Spent Total Time Spent (In Minutes): I personally spent 45 minutes in the coordination of this patient's discharge including bedside counselling, physical exam, coordination of care with specialists and Case Management, and medication reconciliation Coding Level of Care Code 27258 INP/OBS DISCH >30 MIN Diagnoses Closed fracture of shoulder S42.92XA Encounter type: initial encounter Laterality: left Moderate protein-calorie malnutrition E44.0 Polypharmacy Z79.899 Underweight (BMI < 18.5) R63.6; Z68.1 Age-related physical debility R54 Frailty syndrome in geriatric patient R54 Elevated troponin level not due myocardial infarction R79.89 Home Health Attestation I certify that this patient is under my care and that I, or a physicians showroom sales assistant working with me, had a face to-face encounter that meets the home health [id number] encounter requirements with this patient. The encounter with the patient was in whole, or in part, for the following medical condition, which is the primary reason for home health care (list medical condition): syncope, fall with fracture I certify that, based on my findings, the following services are medically necessary home health services: My clinical findings support the need for the above services because: OT Assess ADL Status and Restore Function w ADLs PT Gait and Balance Training, Strengthening and Safety Skilled Nsg Assessment Further, I certify that my clinical findings support that this patient is homebound (i.e. absences from home require considerable and taxing effort and are for medical reasons or religion services or infrequently or of short duration when for other reasons) because: Transportation Assistance/Unable to Leave Home Unassisted Certification for Home Health Services: Based on the above findings, I certify that this patient is confined to the home and needs intermittent senior care care, physical therapy and/or speech therapy or continues to need occupational therapy. The patient is under my care, and I have initiated the establishment of the plan of care. This patient will be followed by a physician who will periodically review the plan of care.
== END 2025-02-15 14:12 | disposition home health service (06) | DRG 563 ==
LOC: ED 10:54 → SUATTDRO 12:45 → 4W 12:45 → INTOOBSV 12:45 → 4W 13:12 → 3N 02-14 21:34

== ENCOUNTER 2025-02-17 13:51 | Observation (INO) ==
[2025-02-17 14:17] LABS: Hematocrit (blood only) 29.3 % (37.0-47.0); Hemoglobin 9.7 g/dl (12.0-16.0); Immature Granulocytes # (auto) 0.03 K/uL (0.01-0.20); Immature Granulocytes % (auto) 0.3 %; Mean Corpuscular Hemoglobin 30.7 pg (25.0-34.0); Mean Corpuscular Volume 92.7 fL (80.0-100.0); Platelet Count 153 K/uL (130-400); RDW Standard Deviation 42.5 fL (36.4-46.3); Red Blood Count 3.16 M/uL (4.20-5.40); White Blood Count 8.58 K/ul (4.8-10.8)
[2025-02-17] MEDS: OPTIRAY 320 125ml IV ONE (14:31)
[2025-02-17 14:37] LABS: Alanine Aminotransferase 38.0 U/L (7-52); Albumin Level 3.5 gm/dl (3.4-5.0); Alkaline Phosphatase 50.0 U/L (34-104); Anion Gap 6.0 (3-11); Bilirubin,Total 0.8 mg/dl (0.2-1.0); Blood Urea Nitrogen 36.0 mg/dl (6-23); Calcium 8.8 mg/dl (8.6-10.3); Carbon Dioxide 31.0 mmol/L (21-32); Chloride 101.0 mmol/L (98-107); Creatinine Clr Calc Pharmacy 31.8 ml/min; Glucose 131.0 mg/dl (70-99(Fasting)); Magnesium 2.0 mg/dl (1.7-2.4); Potassium 3.5 mmol/L (3.5-5.1); Sodium 138.0 mmol/L (136-145); Total Protein 6.1 gm/dl (6.0-8.3)
[2025-02-17 14:46] LABS: INR 1.0 (0.9-1.1); Partial Thromboplastin Time 23 Seconds (21-31); Prothrombin Time 10.9 Seconds (9.0-12.0)
--- NOTE | 2025-02-17 14:55 | CT Scan Report ---
HISTORY: Abdominal pain. TECHNIQUE: Helical CT angiography of the abdomen and pelvis was performed with IV contrast. Images are presented in axial, sagittal, and coronal reformats. COMPARISON: CT of the abdomen pelvis with contrast dated 12/21/2024. FINDINGS: Lung Bases/Inferior Mediastinum: Emphysema. Liver: Unremarkable Gallbladder: Mild gallbladder distention. No wall thickening. No gallstones. No significant intra or extrahepatic biliary ductal dilation. Spleen: Unremarkable. Adrenals: Unremarkable. Pancreas: Unremarkable Kidneys: Bilateral renal cortical thinning/atrophy. Parenchymal scarring. No nephrolithiasis or hydronephrosis. Stomach/Bowel: Stomach and duodenum are unremarkable. Small bowel loops are normal in caliber. The rectum is markedly distended with stoolMeasuring up to 7.2 cm in diameter. Mild colonic diverticulosis. No ascites or pneumoperitoneum. Lymph nodes: Unremarkable Vasculature: Aneurysmal dilation of the Distal descending thoracic aorta measuring up to 4.4 cm in diameter. Aneurysmal dilation of the infrarenal abdominal aorta measuring up to 3.3 cm in diameter. There is severe atherosclerotic vascular disease. Severe stenosis at the origin of the celiac and SMA. Severe stenosis at the origin of the EL. Severe stenosis of both renal artery origins. Multifocal severe stenosis along the common and external iliac arteries. Pelvis: No free pelvic fluid. Urinary bladder is unremarkable. Uterus and ovaries are unremarkable. 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 Moderate degenerative changesOf the lumbar spine. IMPRESSION: * Distended rectum with formed stool measuring up to 7.2 cm in diameter. This could represent constipation and fecal impaction. * Distal descending thoracic aortic aneurysm measuring up to 4.4 cm in diameter. * Infrarenal abdominal aortic aneurysm measuring up to 3.3 cm in diameter. * Severe atherosclerotic vascular calcification with severe stenosis of the major aorta visceral branches as detailed above. * Mildly distended gallbladder. No other findings to suggest acute cholecystitis. * Additional chronic and/or incidental findings as above. ACT 112: Positive. There are findings on this exam that require communication between the performing entity and the patient following Patient Test Result Information Act ([place] ACT 112) guidelines. Electronically signed by Rigo Crooks 02-17-2025 2:55 PM
[2025-02-17 15:26] LABS: Base Excess VBG 5.6 mEq/L; HCO3 VBG 31 mmol/L; Oxygen Saturation VBG 78.9 %; PCO2 VBG 45 mmHg (38-50); PO2 VBG 40 mmHg; pH VBG 7.44 (7.36-7.41)
--- NOTE | 2025-02-17 16:06 | XRay Report ---
HISTORY: Sepsis TECHNIQUE: Portable AP radiograph of the chest. COMPARISON: Chest radiograph dated 02/12/2025. FINDINGS: conveyor monitor leads overlie the chest. No focal lung consolidation. No pneumothorax or pleural effusion. Normal heart size. Left-sided aortic arch containing atherosclerotic calcification. Midline trachea. Postsurgical changes of the right distal clavicle. Atherosclerotic calcifications overlie the neck. Included upper abdomen is unremarkable. IMPRESSION: No acute cardiopulmonary findings. Electronically signed by Rigo Crooks 02-17-2025 4:00 PM
--- NOTE | 2025-02-17 16:33 | History & Physical Report ---
Date of Service February 17, 2025 Assessment & Plan (1) Frailty syndrome in geriatric patient: (2) Age-related physical debility: (3) Underweight (BMI < 18.5): (4) Polypharmacy: (5) Moderate protein-calorie malnutrition: (6) Closed fracture of shoulder: (7) Fecal impaction in rectum: (8) Opioid-induced constipation: (9) Unable to care for self: Plan In summary this is a 74-year-old female who presents back to the [facility] within 48 hours of their previous discharge due to inability to care for himself nor their partner at home, perform activities of daily living, among other complications. #Geriatric Frailty // Inability to perform ADLs // Moderate protein-calorie malnutrition // Poor insight to medical conditions and inability to execute medical decision making Patient has persistently shown she is unable to care for self at home, especially now with their left humeral fracture; at this point in time the patient has not exhibited adequate insight to her medical conditions to make sound medical decisions regarding her disposition; PT and OT will be consulted again, anticipate she will require discharge to residential facility for assistance with their recovery moving forward Physical and Occupational Therapy consulted Dietitian consulted #Opioid induced constipation superimposed on chronic slow transit constipation // Rectal fecal impaction Patient was found to be with rectal impaction based on imaging obtained in the emergency department; most likely consequential of a combination of their chronic slow transit constipation as well as opioid-induced constipation; the patient has not taken their prescribed laxatives nor MiraLAX since discharge Start MiraLAX 17 g p.o. daily Start senna 8.6 mg p.o. daily Administer one-time milk and molasses enema #Left humeral neck fracture without displacement With regard to the patient's recent fracture; we will continue previously established analgesic regimen Continue acetaminophen 1000 mg p.o. 3 times daily Continue hydromorphone 1 mg p.o. every 6 hours as needed for breakthrough pain With regard to the patient's remaining chronic medical conditions, we will continue their home medication regimen until there is indication to adjust based on their clinical status during their hospitalization History of Present Illness Chief Complaint: Physical debility and inability to perform ADLs Primary Care Provider: Adriel Whitaker MD Ms. Chavis is a 74-year-old female whose active medical conditions include hyperlipidemia, hypertension, hypertrophic cardiomyopathy, age-related physical debility and frailty in a geriatric patient among other chronic medical conditions who was recently hospitalized within the past 48 hours after an unwitnessed fall at home resulted in a left nondisplaced humeral neck fracture. During that hospitalization it was recommended the patient be discharged to a residential facility or acute rehabilitation facility for continued care however the patient declined, preferring to be discharged home with home health. In the past 36 hours the patient has not been able to take care of himself nor their partner at home, they have not been able to follow through with her usual medication regimen due to difficulties performing their activities of daily living. Home health presented to the patient's home on 02/17 for their initial evaluation and found the patient to be hypotensive, and unable to care for themselves. EMS was called, and the patient was subsequently brought to the emergency department for further evaluation. The patient endorses persistent discomfort of the left shoulder with extension of their bruising to involve the elbow and forearm; she notes recent soreness developing in the posterior left elbow, lateral of the olecranon. She denies any falls or injuries since the time of discharge. She further notes persistent perianal discomfort described as a constant ache, with a separate distinct sharp pain overlying the sacrum that she expresses concern for a potential pressure ulceration. She reports a small bowel movement of normal caliber and consistency this morning, prior to presentation. Allergies Allergy/AdvReac Type Severity Reaction Status Date / Time salicylates AdvReac Intermediate INTOLERANCE Verified 02/17/25 16:21 Home Medications Medication Instructions Recorded Confirmed Type albuterol sulfate 90 mcg/actuation 2 puff inhalation Q6H PRN 08/23/22 02/17/25 History aerosol inhaler Shortness Of Breath Or Wheezing alprazolam 0.25 mg tablet 0.25 mg PO TID PRN anxiety 05/02/23 02/17/25 History paroxetine HCl 12.5 mg 12.5 mg PO QAM 05/02/23 02/17/25 History tablet,extended release 24 hr trazodone 100 mg tablet 100 mg PO HS 05/02/23 02/17/25 History aspirin 81 mg chewable tablet 81 mg PO QAM 09/21/23 02/17/25 History carvedilol 3.125 mg tablet 3.125 mg PO AMHS 09/21/23 02/17/25 History docusate sodium 100 mg capsule 100 mg PO BID PRN Constipation #30 02/25/24 02/17/25 Rx caps fluticasone propionate 50 2 spray NA DAILY PRN Nasal 02/25/24 02/17/25 Rx mcg/actuation nasal congestion #16 grams spray,suspension pantoprazole 40 mg tablet,delayed 40 mg PO BID #60 tabs 11/14/24 02/17/25 Rx release amlodipine 5 mg tablet 5 mg PO QAM 12/19/24 02/17/25 History rosuvastatin 20 mg tablet 20 mg PO HS 12/19/24 02/17/25 History acetaminophen 500 mg tablet 1,000 mg (2 x 500 mg) PO TID 14 02/15/25 02/17/25 Rx (Tylenol Extra Strength) days #84 tabs hydromorphone 2 mg tablet 1 mg (1/2 x 2 mg) PO Q6H PRN 02/15/25 02/17/25 Rx (Dilaudid) severe breakthrough pain 4 days #10 tabs polyethylene glycol 3350 17 gram 17 g PO DAILY PRN constipation 14 02/15/25 02/17/25 Rx oral powder packet (Miralax) days #14 ea Past Med/Surg History Problem List (Updated 02/17/25 @ 16:55 by Leonardo Murillo MD) Unable to care for self Opioid-induced constipation (Acute) Fecal impaction in rectum (Acute) Closed fracture of shoulder (Acute) Moderate protein-calorie malnutrition (Acute) Polypharmacy (Acute) Underweight (BMI < 18.5) Age-related physical debility (Acute) Frailty syndrome in geriatric patient (Acute) Simple chronic bronchitis Hyperlipidemia (Acute) 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) Hypertension (Chronic) 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) Carotid artery disease (Chronic) Hypertrophic cardiomyopathy (Chronic) Recurrent falls (Chronic) Anxiety (Chronic) Medical History Syncope COVID-19 Sigmoid diverticulitis Diverticulitis Uncontrolled hypertension Acute dehydration Weakness AAA (abdominal aortic aneurysm) Surgical History S/P tubal ligation Family History Other Diabetes Social History Smoking Status: Current every day smoker Tobacco Type: Cigarettes packs per day: 0.5; Cigarettes Per Day: 1/4 PPD; Second Hand Exposure: No; Do You Dip or Chew Tobacco: No; Hx Alcohol Use: No Hx Substance Use: No Preferred Language: Maori Communication Ability: Effective Basting Cleaner Required: No Beliefs That Will Affect Care: None Current Living Situation: Spouse Current Living Situation Comment: lives in 2 story home with Feels Safe at Home: Yes Assistive Devices: None Review of Systems Review of Systems: Review of constitutional, cardiovascular, pulmonary, gastrointestinal, neurologic, musculoskeletal, and integumentary systems was unremarkable except for pertinent positive and negative findings outlined above Physical Exam Physical Exam: General: Elderly female in no acute distress Vital Signs: Reviewed HEENT: Mild temporal wasting; extraocular muscles intact, pupils equally round and reactive to light Pulmonary: Symmetric chest wall excursion that is unrestricted; clear to auscultation bilaterally Cardiovascular: Regular rate and rhythm with grade 2/6 systolic murmur best heard in the left second intercostal space parasternally; no rubs or gallops; bilateral radial pulse 2+ with brisk capillary refill Musculoskeletal: Left proximal humeral deformity with associated ecchymosis now progressing to a primarily green/yellow discoloration, tenderness to palpation; left shoulder and elbow range of motion was deferred given this injury; neurovascularly intact distal of the elbow; tender to palpation immediately lateral of the left olecranon, not involving the lateral epicondyle; ecchymosis extends from the proximal arm distally to involve the entire distal arm and majority of the forearm circumferentially Neurologic: Cranial nerves II through XII grossly intact; no discernible focal weakness other than diminished right upper extremity strength associated with the patient's fracture as detailed above Results & Data Results & Data Vital Signs (Past 12 Hours) Vital Signs Temp Pulse Pulse Resp BP BP Pulse Ox 02/17/25 16:07 83 02/17/25 14:18 82 32 H 96 02/17/25 14:18 81 30 H 115/78 96 02/17/25 14:06 37.2 C 86 32 H 115/78 96 O2 Del Method 02/17/25 16:07 02/17/25 14:18 Room Air 02/17/25 14:18 Room Air 02/17/25 14:06 Room Air Code Status & VTE Plan Code Status DNR/DNI VTE Prophylaxis Plan VTE Prophylaxis will be ordered: Yes PG Care Time/CCT Total # of Minutes Spent Total Time Spent with Patient: Total time spent is greater than 50% in coordination of care (as documented) at patient's floor/unit and/or counseling patient: Coding Level of Care Code 06404 INT INP/OBS CARE 2/55MIN Diagnoses Frailty syndrome in geriatric patient R54 Age-related physical debility R54 Underweight (BMI < 18.5) R63.6; Z68.1 Polypharmacy Z79.899 Moderate protein-calorie malnutrition E44.0 Closed fracture of shoulder S42.92XA Encounter type: initial encounter Laterality: left Fecal impaction in rectum K56.41 Opioid-induced constipation K59.03; T40.2X5A Unable to care for self Z78.9 (6) Closed fracture of shoulder Encounter type: initial encounter Laterality: left Qualified Code(s): S42.92XA - Fracture of left shoulder girdle, part unspecified, initial encounter for closed fracture
--- NOTE | 2025-02-17 16:55 | Emergency Department Note ---
History of Present Illness General Chief complaint: Illness Stated complaint: HYPOTENSION, WEAKNESS, TIRED Time Seen by Provider: 02/17/25 13:55 History of Present Illness Provider complaint: Abdominal pain shoulder pain fatigue Maximum Pain Intensity: 8 74-year-old female with history of mesenteric ischemia presents to the emergency department for abdominal pain shoulder pain and fatigue as well as weakness. Patient reports she does not feel well and has not been able to eat or drink anything. She reports no new falls or traumas. No headache or neck pain. Home Medications Medication Instructions Recorded Confirmed Type albuterol sulfate 90 mcg/actuation 2 puff inhalation Q6H PRN 08/23/22 02/17/25 History aerosol inhaler Shortness Of Breath Or Wheezing alprazolam 0.25 mg tablet 0.25 mg PO TID PRN anxiety 05/02/23 02/17/25 History paroxetine HCl 12.5 mg 12.5 mg PO QAM 05/02/23 02/17/25 History tablet,extended release 24 hr trazodone 100 mg tablet 100 mg PO HS 05/02/23 02/17/25 History aspirin 81 mg chewable tablet 81 mg PO QAM 09/21/23 02/17/25 History carvedilol 3.125 mg tablet 3.125 mg PO AMHS 09/21/23 02/17/25 History docusate sodium 100 mg capsule 100 mg PO BID PRN Constipation #30 02/25/24 02/17/25 Rx caps fluticasone propionate 50 2 spray NA DAILY PRN Nasal 02/25/24 02/17/25 Rx mcg/actuation nasal congestion #16 grams spray,suspension pantoprazole 40 mg tablet,delayed 40 mg PO BID #60 tabs 11/14/24 02/17/25 Rx release amlodipine 5 mg tablet 5 mg PO QAM 12/19/24 02/17/25 History rosuvastatin 20 mg tablet 20 mg PO HS 12/19/24 02/17/25 History acetaminophen 500 mg tablet 1,000 mg (2 x 500 mg) PO TID 14 02/15/25 02/17/25 Rx (Tylenol Extra Strength) days #84 tabs hydromorphone 2 mg tablet 1 mg (1/2 x 2 mg) PO Q6H PRN 02/15/25 02/17/25 Rx (Dilaudid) severe breakthrough pain 4 days #10 tabs polyethylene glycol 3350 17 gram 17 g PO DAILY PRN constipation 14 02/15/25 02/17/25 Rx oral powder packet (Miralax) days #14 ea Allergies Allergy/AdvReac Type Severity Reaction Status Date / Time salicylates AdvReac Intermediate INTOLERANCE Verified 02/17/25 16:21 Past Med/Surg History Problem List (Updated 02/17/25 @ 16:55 by Leonardo Murillo MD) Unable to care for self Opioid-induced constipation (Acute) Fecal impaction in rectum (Acute) Closed fracture of shoulder (Acute) Moderate protein-calorie malnutrition (Acute) Polypharmacy (Acute) Underweight (BMI < 18.5) Age-related physical debility (Acute) Frailty syndrome in geriatric patient (Acute) Simple chronic bronchitis Hyperlipidemia (Acute) 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) Hypertension (Chronic) 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) Carotid artery disease (Chronic) Hypertrophic cardiomyopathy (Chronic) Recurrent falls (Chronic) Anxiety (Chronic) Medical History Syncope COVID-19 Sigmoid diverticulitis Diverticulitis Uncontrolled hypertension Acute dehydration Weakness AAA (abdominal aortic aneurysm) Surgical History S/P tubal ligation Family History Other Diabetes Social History Smoking Status: Current every day smoker Tobacco Type: Cigarettes packs per day: 0.5; Cigarettes Per Day: 1/4 PPD; Second Hand Exposure: No; Do You Dip or Chew Tobacco: No; Hx Alcohol Use: No Hx Substance Use: No Preferred Language: Romansh Communication Ability: Effective Weatherization Field Technician Required: No Beliefs That Will Affect Care: None Current Living Situation: Spouse Current Living Situation Comment: lives in 2 story home with Feels Safe at Home: Yes Assistive Devices: None Physical Exam Vital Signs Vital Signs - 24 hr 02/17/25 14:06 02/17/25 14:18 02/17/25 14:18 Temperature 37.2 C Temperature Source Oral Pulse Rate 86 82 Pulse Rate [Apical] 81 Pulse Rhythm Regular Pulse Rhythm [Apical] Regular Respiratory Rate 32 H 30 H 32 H Respiratory Effort / Characteristics Non-Labored Spontaneous Non-Labored Spontaneous Respiratory Depth Normal Normal Respiratory Pattern Regular Regular Blood Pressure 115/78 Blood Pressure [Right Arm] 115/78 Blood Pressure Mean 90 Blood Pressure Mean [Right Arm] 90 Blood Pressure Position Lying Pulse Oximetry 96 96 96 Oxygen Delivery Method Room Air Room Air Room Air Sepsis Recent Fever Within 48 Hours No Sepsis New/Unexplained Change in Mental Status No Sepsis Action Taken by Nursing No Action Required 02/17/25 16:07 Temperature Temperature Source Pulse Rate 83 Pulse Rate [Apical] Pulse Rhythm Pulse Rhythm [Apical] Respiratory Rate Respiratory Effort / Characteristics Respiratory Depth Respiratory Pattern Blood Pressure Blood Pressure [Right Arm] Blood Pressure Mean Blood Pressure Mean [Right Arm] Blood Pressure Position Pulse Oximetry Oxygen Delivery Method Sepsis Recent Fever Within 48 Hours Sepsis New/Unexplained Change in Mental Status Sepsis Action Taken by Nursing Physical Exam GENERAL: Ill-appearing and cachectic. HENT: Exam performed. -Head: Normocephalic and atraumatic. EYES: Conjunctivae and EOM are normal. Pupils are equal, round, and reactive to light. Right eye exhibits no discharge. Left eye exhibits no discharge. No scleral icterus. NECK: Normal range of motion. Neck supple. No JVD present. No spinous process tenderness present. CV: Normal rate, regular rhythm, heart murmur present and intact distal pulses. There is no peripheral edema. Palpable radial pulses bue. PULM/CHEST: Effort normal and breath sounds normal. No respiratory distress. No stridor. She has no wheezes. She has no rales. ABD: The abdomen is soft. There is tenderness to palpation of the epigastric area. There is no rebound, no guarding. MUSC/SKEL: Ecchymosis and swelling over the patient's left shoulder. Palpable radial and ulnar pulses bilateral upper extremities. NEURO: Motor and sensation grossly intact. SKIN: Diffuse ecchymosis over the patient's left upper extremity Course Course 1355: The patient was evaluated in room B4. A complete history and physical exam was performed Cardiac monitoring: An order was placed for continuous cardiac monitoring. The monitor shows a rate of 80 with sinus rhythm interpreted by wy 1620: Vital signs stable. Labs are unremarkable. High-sensitivity troponin trending down to 14.7. Chest x-ray negative. CT shows constipation acutely.There is extensive atherosclerosis of the abdominal aorta. Aortic aneurysm is present. Patient reports she is too weak to go home and would like to be readmitted to the hospital. Discussed case with Dr. Iniguez [facility] hospitalist who states he will evaluate the patient for admission. Administered Medications Discontinued Medications Ioversol (Optiray 320 125ml) 119 ml IV ONCE ONE Stop: 02/17/25 14:32 Last Admin: 02/17/25 14:31 Dose: 119 ml Documented By: WILBER Medical Decision Making Medical Records Attestation: I reviewed the patient's medical records. Medical records reviewed. Patient was admitted from February 12 to February 15, 2025. Patient was admitted for syncope and a proximal left humeral neck fracture. Laboratory Data Attestation: I reviewed the patient's lab results. 02/17/25 13:28 02/17/25 13:28 Lab Results 02/17/25 02/17/25 02/17/25 Range/Units 13:28 14:08 14:51 WBC 8.58 (4.8-10.8) K/ul RBC 3.16 L (4.20-5.40) M/uL Hgb 9.7 L (12.0-16.0) g/dl POC Hgb 8.5 L (12.0-16.0) g/dl Hct 29.3 L (37.0-47.0) % POC Hct 25 L (37-47) % MCV 92.7 (80.0-100.0) fL MCH 30.7 (25.0-34.0) pg MCHC 33.1 (32.0-36.0) g/dL RDW Std Deviation 42.5 (36.4-46.3) fL RDW Coeff of Yamile 12.4 (11.5-14.5) % Plt Count 153 (130-400) K/uL MPV 10.8 (9.4-12.4) fL Immature Gran % (Auto) 0.3 % Neut % (Auto) 79.6 % Lymph % (Auto) 10.3 % Kerr % (Auto) 8.5 % Eos % (Auto) 0.8 % Baso % (Auto) 0.5 % Neut # (Auto) 6.83 H (1.40-6.50) K/uL Lymph # (Auto) 0.88 L (1.20-3.40) K/uL Kerr # (Auto) 0.73 H (0.11-0.59) K/uL Eos # (Auto) 0.07 (0.00-0.50) K/uL Baso # (Auto) 0.04 (0.00-0.20) K/uL Immature Gran # (Auto) 0.03 (0.01-0.20) K/uL PT 10.9 (9.0-12.0) Seconds INR 1.0 (0.9-1.1) APTT 23 (21-31) Seconds PTT Ratio 0.8 VBG pH 7.44 H (7.36-7.41) VBG pCO2 45 (38-50) mmHg VBG pO2 40 mmHg VBG HCO3 31 mmol/L VBG O2 Saturation 78.9 % VBG Base Excess 5.6 mEq/L POC Sodium 139 (135-144) mmol/L Sodium 138 (136-145) mmol/L POC Potassium 3.7 (3.3-5.0) mmol/L Potassium 3.5 (3.5-5.1) mmol/L POC Chloride 99 L (101-112) mmol/L Chloride 101 (98-107) mmol/L Carbon Dioxide 31 (21-32) mmol/L POC Total CO2 30 (24-31) mmol/L Anion Gap 6 (3-11) POC Anion Gap 15.0 L (16-25) mmol/L POC BUN 34 H (7-18) mg/dl BUN 36 H (6-23) mg/dl Creatinine 1.10 (0.6-1.2) mg/dl POC Creatinine 1.2 (0.6-1.3) mg/dl Est Cr Clr Drug Dosing 31.8 ml/min eGFR 53.39 BUN/Creatinine Ratio 32.7 H (10-20) Glucose 131 H (70-99(Fasting)) mg/dl POC Glucose (other) 105 H (70-99) mg/dl Lactate 1.3 (0.4-2.0) mmol/L Calcium 8.8 (8.6-10.3) mg/dl POC Ioniz Calcium Maty 1.08 L (1.12-1.32) mmol/l Magnesium 2.0 (1.7-2.4) mg/dl Total Bilirubin 0.8 (0.2-1.0) mg/dl Direct Bilirubin 0.1 (0-0.2) mg/dl AST 40 H (13-39) U/L ALT 38 (7-52) U/L Alkaline Phosphatase 50 (34-104) U/L Troponin I High Sens 14.7 H (0-14) pg/ml Total Protein 6.1 (6.0-8.3) gm/dl Albumin 3.5 (3.4-5.0) gm/dl Procalcitonin 0.07 (0-0.5) ng/ml Imaging Data Attestation: I personally reviewed and interpreted this imaging study as follows: My Impression: Chest x-ray negative. Airway clear. No pneumothorax. No consolidation. No cardiomegaly or cephalization.. No free air under the diaphragm. No fractures of the skeletal structures. Radiologist's Impression: Abdomen/Pelvis CTA 02/17/25 14:04 HISTORY: Abdominal pain. TECHNIQUE: Helical CT angiography of the abdomen and pelvis was performed with IV contrast. Images are presented in axial, sagittal, and coronal reformats. COMPARISON: CT of the abdomen pelvis with contrast dated 12/21/2024. FINDINGS: Lung Bases/Inferior Mediastinum: Emphysema. Liver: Unremarkable Gallbladder: Mild gallbladder distention. No wall thickening. No gallstones. No significant intra or extrahepatic biliary ductal dilation. Spleen: Unremarkable. Adrenals: Unremarkable. Pancreas: Unremarkable Kidneys: Bilateral renal cortical thinning/atrophy. Parenchymal scarring. No nephrolithiasis or hydronephrosis. Stomach/Bowel: Stomach and duodenum are unremarkable. Small bowel loops are normal in caliber. The rectum is markedly distended with stoolMeasuring up to 7.2 cm in diameter. Mild colonic diverticulosis. No ascites or pneumoperitoneum. Lymph nodes: Unremarkable Vasculature: Aneurysmal dilation of the Distal descending thoracic aorta measuring up to 4.4 cm in diameter. Aneurysmal dilation of the infrarenal abdominal aorta measuring up to 3.3 cm in diameter. There is severe atherosclerotic vascular disease. Severe stenosis at the origin of the celiac and SMA. Severe stenosis at the origin of the EL. Severe stenosis of both renal artery origins. Multifocal severe stenosis along the common and external iliac arteries. Pelvis: No free pelvic fluid. Urinary bladder is unremarkable. Uterus and ovaries are unremarkable. 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 Moderate degenerative changesOf the lumbar spine. IMPRESSION: * Distended rectum with formed stool measuring up to 7.2 cm in diameter. This could represent constipation and fecal impaction. * Distal descending thoracic aortic aneurysm measuring up to 4.4 cm in diameter. * Infrarenal abdominal aortic aneurysm measuring up to 3.3 cm in diameter. * Severe atherosclerotic vascular calcification with severe stenosis of the major aorta visceral branches as detailed above. * Mildly distended gallbladder. No other findings to suggest acute cholecystitis. * Additional chronic and/or incidental findings as above. ACT 112: Positive. There are findings on this exam that require communication between the performing entity and the patient following Patient Test Result Information Act ([place] ACT 112) guidelines. Electronically signed by Rigo Crooks 02-17-2025 2:55 PM Chest X-Ray 02/17/25 14:04 HISTORY: Sepsis TECHNIQUE: Portable AP radiograph of the chest. COMPARISON: Chest radiograph dated 02/12/2025. FINDINGS: adobe layer helper leads overlie the chest. No focal lung consolidation. No pneumothorax or pleural effusion. Normal heart size. Left-sided aortic arch containing atherosclerotic calcification. Midline trachea. Postsurgical changes of the right distal clavicle. Atherosclerotic calcifications overlie the neck. Included upper abdomen is unremarkable. IMPRESSION: No acute cardiopulmonary findings. Electronically signed by Rigo Crooks 02-17-2025 4:00 PM ECG Data Attestation: I personally reviewed and interpreted this ECG as follows: Rate (beats per minute): 86 Rhythm: + normal sinus ECG Intervals/blocks: + Normal NC and + Normal QT-c ECG ST segments: + Normal ST segments Additional Comments: QRS 70 MDM Narrative 1355: The patient was evaluated in room B4. A complete history and physical exam was performed Cardiac monitoring: An order was placed for continuous cardiac monitoring. The monitor shows a rate of 80 with sinus rhythm interpreted by me 1620: Vital signs stable. Labs are unremarkable. High-sensitivity troponin trending down to 14.7. Chest x-ray negative. CT shows constipation acutely.There is extensive atherosclerosis of the abdominal aorta. Aortic aneurysm is present. Patient reports she is too weak to go home and would like to be readmitted to the hospital. Discussed case with Dr. Hira Osullivan hospitalist who states he will evaluate the patient for admission. Impression & Plan Mesenteric artery stenosis, Frailty syndrome in geriatric patient Discharge Plan Visit Data Chief Complaint: Illness Stated Complaint: HYPOTENSION, WEAKNESS, TIRED ED Provider: Lidia,Leonardo Discharge Problem: Mesenteric artery stenosis, Frailty syndrome in geriatric patient Patient Disposition: Being Evaluated by Hospitalist Condition: Fair Forms Stand Alone Forms: My [facility] Prescriptions Prescriptions: No Action pantoprazole 40 mg tablet,delayed release (DR/EC) 40 mg PO BID Qty: 60 5RF albuterol sulfate 90 mcg/actuation HFA aerosol inhaler 2 puff INHALATION Q6H PRN (Reason: Shortness Of Breath Or Wheezing) alprazolam 0.25 mg tablet 0.25 mg PO TID PRN (Reason: anxiety ) trazodone 100 mg tablet 100 mg PO HS paroxetine HCl 12.5 mg tablet extended release 24 hr 12.5 mg PO QAM carvedilol 3.125 mg tablet 3.125 mg PO AMHS aspirin 81 mg Tablet,Chewable 81 mg PO QAM polyethylene glycol 3350 [Miralax] 17 gram Powder In Packet 17 g PO DAILY PRN (Reason: constipation) 14 Days Qty: 14 0RF acetaminophen [Tylenol Extra Strength] 500 mg Tablet 1,000 mg PO TID 14 Days Qty: 84 0RF hydromorphone [Dilaudid] 2 mg Tablet 1 mg PO Q6H PRN (Reason: severe breakthrough pain) 4 Days Qty: 10 0RF fluticasone propionate 50 mcg/actuation Smyer,Suspension 2 spray NA DAILY PRN (Reason: Nasal congestion) Qty: 16 0RF docusate sodium 100 mg Capsule 100 mg PO BID PRN (Reason: Constipation) Qty: 30 0RF rosuvastatin 20 mg tablet 20 mg PO HS amlodipine 5 mg tablet 5 mg PO QAM Hold Instructions: Resume on 03/05/25. Discuss resuming with PCP Rx Instructions: 02/17/25 : THIS MED CURRENTLY ON HOLD. Referrals Referrals: Adriel Whitaker MD [Primary Care Provider] -
[2025-02-17 17:40] LABS: Appearance Urine Clear (Clear); Bacteria Urine Automated None Seen (None Seen); Cast Urine Automated 0-2 /lpf (0-2); Epithelial Cell Urine Auto 0-2 /hpf (0-2); Glucose Urine UA Negative (Negative); RBC Urine Automated 0-2 /hpf (0-2); WBC Urine Automated 0-5 /hpf (0-5)
[2025-02-17] MEDS ORDERED: ALBUTEROL HFA 8 GM INHALER INH PRN (18:59)
--- NOTE | 2025-02-17 19:48 | Electrocardiogram Report ---
Test Reason : Blood Pressure : */* mmHG Vent. Rate : 86 BPM Atrial Rate : 86 BPM P-R Int : 146 ms QRS Dur : 70 ms QT Int : 390 ms P-R-T Axes : 67 12 74 degrees QTcB Int : 466 ms Normal sinus rhythm Possible Left atrial enlargement Possible Anterior infarct (cited on or before 03-Jul-2024) Abnormal ECG When compared with ECG of 12-Feb-2025 12:01, Questionable change in initial forces of Septal leads Confirmed by Raul Zhou ([id number]) on 02/17/2025 7:47:59 PM Referred By: REFERRED SELF Confirmed By: Raul Zhou
[2025-02-17] MEDS: ROSUVASTATIN CALCIUM 20 MG TAB PO SCH (20:15)
[2025-02-17] MEDS: ENOXAPARIN INJ 40 MG/0.4 ML SYR SQ SCH (20:17)
[2025-02-17] MEDS: ACETAMINOPHEN 500 MG TAB PO SCH (20:54)
--- NOTE | 2025-02-18 07:45 | Hospitalist Progress Note ---
Date of Service February 18, 2025 Assessment & Plan (1) Frailty syndrome in geriatric patient: (2) Age-related physical debility: (3) Underweight (BMI < 18.5): (4) Polypharmacy: (5) Moderate protein-calorie malnutrition: (6) Closed fracture of shoulder: (7) Fecal impaction in rectum: (8) Opioid-induced constipation: (9) Unable to care for self: Plan In summary this is a 74-year-old female who presents back to the [facility] within 48 hours of their previous discharge due to inability to care for himself nor their partner at home, perform activities of daily living, among other complications. #Geriatric Frailty // Inability to perform ADLs // Moderate protein-calorie malnutrition // Poor insight to medical conditions and inability to execute medical decision making Patient has persistently shown she is unable to care for self at home, especially now with their left humeral fracture; at this point in time the patient has not exhibited adequate insight to her medical conditions to make sound medical decisions regarding her disposition; PT and OT will be consulted again, anticipate she will require discharge to usp facility for assistance with their recovery moving forward Physical and Occupational Therapy consulted Dietitian consulted #Opioid induced constipation superimposed on chronic slow transit constipation // Rectal fecal impaction Patient was found to be with rectal impaction based on imaging obtained in the emergency department; most likely consequential of a combination of their chronic slow transit constipation as well as opioid-induced constipation; the patient has not taken their prescribed laxatives nor MiraLAX since discharge Continue MiraLAX 17 g p.o. daily Continue senna 8.6 mg p.o. daily Administer one-time milk and molasses enema; has yet to be administered, discussed need with nursing staff #Left humeral neck fracture without displacement With regard to the patient's recent fracture; we will continue previously established analgesic regimen Continue acetaminophen 1000 mg p.o. 3 times daily Continue hydromorphone 1 mg p.o. every 6 hours as needed for breakthrough pain With regard to the patient's remaining chronic medical conditions, we will continue their home medication regimen until there is indication to adjust based on their clinical status during their hospitalization Admission and Anticipated Discharge Date Admission Date: February 17, 2025 Subjective Ms. Chavis is a 74-year-old female whose active medical conditions include hyperlipidemia, hypertension, hypertrophic cardiomyopathy, age-related physical debility and frailty in a geriatric patient among other chronic medical conditions who was recently hospitalized within the past 48 hours after an unwitnessed fall at home resulted in a left nondisplaced humeral neck fracture. During that hospitalization it was recommended the patient be discharged to a usp facility or acute rehabilitation facility for continued care however the patient declined, preferring to be discharged home with home health. In the past 36 hours the patient has not been able to take care of himself nor their partner at home, they have not been able to follow through with her usual medication regimen due to difficulties performing their activities of daily living. Home health presented to the patient's home on 02/17 for their initial evaluation and found the patient to be hypotensive, and unable to care for thems elves. EMS was called, and the patient was subsequently brought to the emergency department for further evaluation. No acute overnight events Review of Systems Review of Systems: Review of constitutional, cardiovascular, pulmonary, gastrointestinal, neurologic, musculoskeletal, and integumentary systems was unremarkable except for pertinent positive and negative findings outlined above Physical Exam Physical Exam: General: Elderly female in no acute distress Vital Signs: Reviewed HEENT: Mild temporal wasting; extraocular muscles intact, pupils equally round and reactive to light Pulmonary: Symmetric chest wall excursion that is unrestricted; clear to auscultation bilaterally Cardiovascular: Regular rate and rhythm with grade 2/6 systolic murmur best heard in the left second intercostal space parasternally; no rubs or gallops; bilateral radial pulse 2+ with brisk capillary refill Gastrointestinal: Soft, nondistended; fullness to palpation in the left lower quadrant without significant tenderness; low frequency normal pitch bowel sounds present throughout Musculoskeletal: Left proximal humeral deformity with associated ecchymosis now progressing to a primarily green/yellow discoloration, tenderness to palpation; left shoulder and elbow range of motion was deferred given this injury; neurovascularly intact distal of the elbow; tender to palpation immediately lateral of the left olecranon, not involving the lateral epicondyle; ecchymosis extends from the proximal arm distally to involve the entire distal arm and majority of the forearm circumferentially Neurologic: Cranial nerves II through XII grossly intact; no discernible focal weakness other than diminished right upper extremity strength associated with the patient's fracture as detailed above Results & Data Results & Data Vital Signs (Past 12 Hours) Vital Signs Temp Pulse Resp BP Pulse Ox O2 Del Method 02/17/25 22:53 36.3 C L 93 H 14 114/70 93 Room Air 02/17/25 21:01 72 100/58 L 02/17/25 19:50 Room Air PG Care Time/CCT Total # of Minutes Spent Total Time Spent with Patient: Total time spent is greater than 50% in coordination of care (as documented) at patient's floor/unit and/or counseling patient: Coding Level of Care Code 43087 SUB INP/OBS CARE 2/35MIN Diagnoses Frailty syndrome in geriatric patient R54 Age-related physical debility R54 Underweight (BMI < 18.5) R63.6; Z68.1 Polypharmacy Z79.899 Moderate protein-calorie malnutrition E44.0 Closed fracture of shoulder S42.92XA Encounter type: initial encounter Laterality: left Fecal impaction in rectum K56.41 Opioid-induced constipation K59.03; T40.2X5A Unable to care for self Z78.9 (6) Closed fracture of shoulder Encounter type: initial encounter Laterality: left Qualified Code(s): S42.92XA - Fracture of left shoulder girdle, part unspecified, initial encounter for closed fracture
[2025-02-18] MEDS: POLYETHYLENE (MIRALAX) 17 GM PACK PO SCH (08:51)
[2025-02-18] MEDS: ASPIRIN 81 MG CHEW PO SCH (08:51)
[2025-02-18] MEDS: SENNA 8.6 MG TAB PO SCH (08:51)
--- NOTE | 2025-02-18 13:54 | Communication Note ---
Date of Service: February 18, 2025 Contacted by nursing staff due to patient having significant abdominal pain shortly after moving bowels with enema; upon evaluation the patient is resting comfortably in bed endorsing significant abdominal pain from their groin to the epigastrium described as "stabbing" and "shooting"; on exam, the patient exhibits voluntary guarding with palpation throughout the abdomen; with auscultation, there are high frequency and normal pitch bowel sounds throughout; notably, with deep palpation during auscultation the patient exhibits no guarding, voluntary or involuntary; there is no tenderness to percussion, nor acute peritoneal findings Suspect the patient's pain is secondary to colonic spasms after passage of a large rectal stool ball; we discussed this often occurs when such a large volume is passed, and that there are few pharmacologic interventions that can be made to assist with this pain. She was offered a heating pad, which she accepted.
--- NOTE | 2025-02-19 09:58 | Hospitalist Progress Note ---
Date of Service February 19, 2025 Assessment & Plan (1) Frailty syndrome in geriatric patient: (2) Age-related physical debility: (3) Underweight (BMI < 18.5): (4) Polypharmacy: (5) Moderate protein-calorie malnutrition: (6) Closed fracture of shoulder: (7) Fecal impaction in rectum: (8) Opioid-induced constipation: (9) Unable to care for self: Plan In summary this is a 74-year-old female who presents back to the [facility] within 48 hours of their previous discharge due to inability to care for himself nor their partner at home, perform activities of daily living, among other complications. #Geriatric Frailty // Inability to perform ADLs // Moderate protein-calorie malnutrition // Poor insight to medical conditions and inability to execute medical decision making Patient has persistently shown she is unable to care for self at home, especially now with their left humeral fracture; at this point in time the patient has not exhibited adequate insight to her medical conditions to make sound medical decisions regarding her disposition; PT and OT will be consulted again, anticipate she will require discharge to senior living facility for assistance with their recovery moving forward Physical and Occupational Therapy consulted Dietitian consulted #Opioid induced constipation superimposed on chronic slow transit constipation // Rectal fecal impaction Patient was found to be with rectal impaction based on imaging obtained in the emergency department; most likely consequential of a combination of their chronic slow transit constipation as well as opioid-induced constipation; the patient has not taken their prescribed laxatives nor MiraLAX since discharge Continue MiraLAX 17 g p.o. daily Continue senna 8.6 mg p.o. daily #Left humeral neck fracture without displacement With regard to the patient's recent fracture; we will continue previously established analgesic regimen Continue acetaminophen 1000 mg p.o. 3 times daily Continue hydromorphone 1 mg p.o. every 6 hours as needed for breakthrough pain With regard to the patient's remaining chronic medical conditions, we will continue their home medication regimen until there is indication to adjust based on their clinical status during their hospitalization Admission and Anticipated Discharge Date Admission Date: February 17, 2025 Subjective Ms. Chavis is a 74-year-old female whose active medical conditions include hyperlipidemia, hypertension, hypertrophic cardiomyopathy, age-related physical debility and frailty in a geriatric patient among other chronic medical conditions who was recently hospitalized within the past 48 hours after an unwitnessed fall at home resulted in a left nondisplaced humeral neck fracture. During that hospitalization it was recommended the patient be discharged to a senior living facility or acute rehabilitation facility for continued care however the patient declined, preferring to be discharged home with home health. In the past 36 hours the patient has not been able to take care of himself nor their partner at home, they have not been able to follow through with her usual medication regimen due to difficulties performing their activities of daily living. Home health presented to the patient's home on 02/17 for their initial evaluation and found the patient to be hypotensive, and unable to care for themselves. EMS was called, and the patient was subsequently brought to the emergency department for further evaluation. No acute overnight events Review of Systems Review of Systems: Review of constitutional, cardiovascular, pulmonary, gastrointestinal, neurologic, musculoskeletal, and integumentary systems was unremarkable except for pertinent positive and negative findings outlined above Physical Exam Physical Exam: General: Elderly female in no acute distress Vital Signs: Reviewed HEENT: Mild temporal wasting; extraocular muscles intact, pupils equally round and reactive to light Pulmonary: Symmetric chest wall excursion that is unrestricted; clear to auscultation bilaterally Cardiovascular: Regular rate and rhythm with grade 2/6 systolic murmur best heard in the left second intercostal space parasternally; no rubs or gallops; bilateral radial pulse 2+ with brisk capillary refill Gastrointestinal: Soft, nondistended; fullness to palpation in the left lower quadrant without significant tenderness; low frequency normal pitch bowel sounds present throughout Musculoskeletal: Left proximal humeral deformity with associated ecchymosis now progressing to a primarily green/yellow discoloration, tenderness to palpation; left shoulder and elbow range of motion was deferred given this injury; neurovas cularly intact distal of the elbow; tender to palpation immediately lateral of the left olecranon, not involving the lateral epicondyle; ecchymosis extends from the proximal arm distally to involve the entire distal arm and majority of the forearm circumferentially Neurologic: Cranial nerves II through XII grossly intact; no discernible focal weakness other than diminished right upper extremity strength associated with the patient's fracture as detailed above Results & Data Results & Data Vital Signs (Past 12 Hours) Vital Signs Temp Pulse Resp BP Pulse Ox O2 Del Method 02/19/25 07:30 Room Air 02/19/25 07:05 36.5 C 80 16 134/81 96 Room Air 02/18/25 23:25 36.7 C 73 18 167/81 H 96 Room Air PG Care Time/CCT Total # of Minutes Spent Total Time Spent with Patient: Total time spent is greater than 50% in coordination of care (as documented) at patient's floor/unit and/or counseling patient: Coding Level of Care Code 00914 SUB INP/OBS CARE 2/35MIN Diagnoses Frailty syndrome in geriatric patient R54 Age-related physical debility R54 Underweight (BMI < 18.5) R63.6; Z68.1 Polypharmacy Z79.899 Moderate protein-calorie malnutrition E44.0 Closed fracture of shoulder S42.92XA Encounter type: initial encounter Laterality: left Fecal impaction in rectum K56.41 Opioid-induced constipation K59.03; T40.2X5A Unable to care for self Z78.9 (6) Closed fracture of shoulder Encounter type: initial encounter Laterality: left Qualified Code(s): S42.92XA - Fracture of left shoulder girdle, part unspecified, initial encounter for closed fracture
[2025-02-20] MEDS: LORazepam 0.5 MG TAB PO PRN (15:02)
--- NOTE | 2025-02-20 20:34 | Hospitalist Progress Note ---
Date of Service February 20, 2025 Assessment & Plan (1) Frailty syndrome in geriatric patient: Plan: No acute medical issues. Await PT/OT Service evals to expedite D/C to SNF in the next 1-2 days. (2) Age-related physical debility: Plan: No acute medical issues. Await PT/OT Service evals to expedite D/C to SNF in the next 1-2 days. (3) Underweight (BMI < 18.5): Plan: No acute medical issues. Await PT/OT Service evals to expedite D/C to SNF in the next 1-2 days. (4) Polypharmacy: Plan: No acute medical issues. Await PT/OT Service evals to expedite D/C to SNF in the next 1-2 days. (5) Moderate protein-calorie malnutrition: Plan: No acute medical issues. Await PT/OT Service evals to expedite D/C to SNF in the next 1-2 days. (6) Closed fracture of shoulder: Plan: No acute medical issues. Await PT/OT Service evals to expedite D/C to SNF in the next 1-2 days. (7) Fecal impaction in rectum: Plan: No acute medical issues. Await PT/OT Service evals to expedite D/C to SNF in the next 1-2 days. (8) Opioid-induced constipation: Plan: No acute medical issues. Await PT/OT Service evals to expedite D/C to SNF in the next 1-2 days. (9) Unable to care for self: Plan: No acute medical issues. Await PT/OT Service evals to expedite D/C to SNF in the next 1-2 days. Plan In summary this is a 74-year-old female who presents back to the [facility] within 48 hours of their previous discharge due to inability to care for himself nor their partner at home, perform activities of daily living, among other complications. #Geriatric Frailty // Inability to perform ADLs // Moderate protein-calorie malnutrition // Poor insight to medical conditions and inability to execute medical decision making Patient has persistently shown she is unable to care for self at home, especially now with their left humeral fracture; at this point in time the patient has not exhibited adequate insight to her medical conditions to make sound medical decisions regarding her disposition; PT and OT will be consulted again, anticipate she will require discharge to correction facility for assistance with their recovery moving forward Physical and Occupational Therapy consulted Dietitian consulted #Opioid induced constipation superimposed on chronic slow transit constipation // Rectal fecal impaction Patient was found to be with rectal impaction based on imaging obtained in the emergency department; most likely consequential of a combination of their chronic slow transit constipation as well as opioid-induced constipation; the patient has not taken their prescribed laxatives nor MiraLAX since discharge Continue MiraLAX 17 g p.o. daily Continue senna 8.6 mg p.o. daily #Left humeral neck fracture without displacement With regard to the patient's recent fracture; we will continue previously established analgesic regimen Continue acetaminophen 1000 mg p.o. 3 times daily Continue hydromorphone 1 mg p.o. every 6 hours as needed for breakthrough pain With regard to the patient's remaining chronic medical conditions, we will continue their home medication regimen until there is indication to adjust based on their clinical status during their hospitalization Admission and Anticipated Discharge Date Admission Date: February 17, 2025 Subjective "I'm weak. I know now that I can't go back home. I'm ready to go to rehab. Do you know when I will go to rehab?" Review of Systems Constitutional: Positive for generalized weakness. Negative for antecedent/coincident fevers, chills, diaphoresis, cough, wheeze, sore throat, hemoptysis, SOB/LEIJA, chest pains, palpitations, pleurisy, nausea, vomiting, diarrhea, abdominal pain, pelvic pain, hematemesis, hematochezia, melena, hematuria, dysuria, frequency, urgency, headaches, dizziness, lightheadedness, visual changes, hearing changes, falls, syncope, trauma, travel history, sick contacts, or food/drug ingestions novel or new. All other review of systems are reported as negative by the patient on 02/20/2025. Physical Exam Constitutional: General: Comfortable, cooperative, coherent. Wide awake and alert. Not confused, lethargic, or obtunded. Patient speaks in complete, fluent, and articulate sentences without pause, interruption, cough, or wheeze. HEENT: NC/AT. EOMI. PERRL. No nystagmus, gaze paresis, anisocoria, miosis, mydriasis, chemosis, hyphema, scleral injection, conjunctivitis, or pterygium. No otorrhea. No rhinorrhea. Neck: Supple, no stridor, bruit, or goiter. Jugular venous pressure 5cm above the sternal angle of Ric, which is typically 5 cm above the right atrium. Lymph: No anterior/posterior cervical lymphadenopathy, supraclavicular/ infraclavicular lymphadenopathy, axilla/epitrochlear/inguinal lymphadenopathy. Chest: Symmetric rise and fall with respirations. Non-tender to palpation. Heart: RRR, S1 and S2. No S3 or S4 summation gallop. No tripartite friction rub. No murmur. Lungs: Clear to auscultation and percussion. No audible expiratory wheeze, egophony, pectoriloquy, increase in tactile fremitus, or flatness/dullness to percussion at the bases. Abd: Soft, non-tender, non-distended. Bowel sounds auscultated in all 4 quadrants. No rebound, guarding, Morataya's sign, or organomegaly. Ext: No clubbing, cyanosis, or edema. 2+ pedal pulses bilaterally. Skin: No decubitus ulcer, exanthem, or enanthem. Neuro: No tremors, tics, or myoclonus. DTR+. Urology: No brown catheter. No urethral discharge. Results & Data Results & Data Vital Signs (Past 12 Hours) Vital Signs Temp Pulse Resp BP Pulse Ox O2 Del Method 02/20/25 15:18 36.8 C 70 16 143/81 H 98 Room Air Laboratory Results None. PG Care Time/CCT Total # of Minutes Spent Total Time Spent with Patient: Total time spent is greater than 50% in coordination of care (as documented) at patient's floor/unit and/or counseling patient: Coding Level of Care Code 68553 SUB INP/OBS CARE 2/35MIN Diagnoses Frailty syndrome in geriatric patient R54 Age-related physical debility R54 Underweight (BMI < 18.5) R63.6; Z68.1 Polypharmacy Z79.899 Moderate protein-calorie malnutrition E44.0 Closed fracture of shoulder S42.92XA Encounter type: initial encounter Laterality: left Fecal impaction in rectum K56.41 Opioid-induced constipation K59.03; T40.2X5A Unable to care for self Z78.9 (6) Closed fracture of shoulder Encounter type: initial encounter Laterality: left Qualified Code(s): S42.92XA - Fracture of left shoulder girdle, part unspecified, initial encounter for closed fracture
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
[2025-02-21] MEDS: POTASSIUM CHLORIDE CRTAB 20 MEQ TABCR PO STA (21:57)
[2025-02-22 07:38] VITALS: TEMP 98.2
--- NOTE | 2025-02-22 10:53 | XRay Report ---
XR shoulder LT min 2V routine CLINICAL HISTORY: left proximal humerus fracture COMPARISON: 02/12/2025 FINDINGS: Comminuted proximal humerus fracture demonstrates mild lateral displacement with medial ro tation of the humeral head fragment and mild impaction. IMPRESSION: Proximal humerus fracture as described. ACT 112: Negative or not required by law. Electronically signed by: Jimbo Rojo M.D. 02/22/2025 10:52 AM
--- NOTE | 2025-02-22 14:04 | Orthopedic Progress Note ---
Date of Service February 22, 2025 Assessment & Plan (1) Proximal humerus fracture: Plan: Left proximal humerus fracture, comminuted, displaced, conservative treatment. DOI: 02/12/2025 Will continue to treat this fracture conservatively and without surgical interv ention. She is not a great surgical candidate and we can except a lot of displacement and proximal humerus fractures and her functionality should be good once the fracture is healed. She also has some skin abrasions of age indeterminant's across the top of her shoulder which would add to infection risk with surgical intervention. She is agreeable to treat conservatively. She would like to the pain to be improved. She is currently on P.o. Tylenol and Dilaudid for control of her pain. He did explain to her that we would not at this point be giving her any more for pain either as an outpatient. She should have very minimal pain if she is not moving the shoulder. The pain should also significantly improve in the next week or so. She can do ice as needed to the left shoulder. Continue use of the sling. She can remove the sling or at least the strap around her neck while sitting in bed or sleeping. May do active range of motion of her fingers, wrist, forearm and elbow. May start in 1 week gentle passive range of motion such as pendulums for the left shoulder. Minimal range of motion for the first 4 weeks after injury. Passive ROM only left shoulder to start on 03/01/25 as tolerated. We will follow-up with her as an outpatient in 3 weeks for repeat clinical exam and x-rays of the shoulder. Sling for 6 weeks. She will need to start outpatient physical therapy or in-home physical therapy once discharged from the correction facility. She states that she would prefer in-home physical therapy. Explained to her that she can develop some stiffness in the shoulder but physica l therapy will help work that out. This may take 3 to 6 to 9 months to heal. Encouraged adequate intake of calcium and vitamin D. We could obtain a vitamin D level to see if she needs any replacement. She understands and agrees with the plan. Findings will be discussed with Dr. Cooley. Discharge instructions were placed in patient's chart. Admission and Anticipated Discharge Date Admission Date: February 17, 2025 Collin Cuevas was seen and evaluated today as an inpatient. She missed her outpatient appointment at [facility] orthopedics. I accidentally came across the fact that she was an inpatient and discussed with hospitalist about seeing her in the hospital. X-rays were ordered. She states that she did come back to the hospital as she was unable to take care of herself at home. She is waiting for authorization for center care. She states that she has a lot of pain in her left shoulder. Her left upper extremity became very swollen and bruised. She has been using her sling. She denies any numbness or tingling in her left arm. She only complains of pain and feels that "they are not giving her enough pain medication". She is right-hand dominant. Physical Exam Constitutional: WD/WN, vitals as above Musculoskeletal: Exam of her left upper extremity: She is resting comfortably in bed. The sling on her left arm is in place. Significant ecchymosis throughout the entire left upper extremity starting at mid upper arm to her hand and fingertips. She has full range of motion of her fingers with flexion and extension and is able to hold against resistance. Motor and sensory functions are intact in the axillary, radial, ulnar, AIN and PIN distributions. Distal pulses are 2+. Mild edema pitting along the dorsum of her hand the forearm. She is able to do active range of motion of her fingers and wrist without discomfort. Strength with finger extension, flexion, wrist extension and flexion and elbow flexion and extension is 5/5. Elbow is nontender to palpation. Ecchymosis and edema down into the elbow and forearm area. She tolerates gentle range of motion of the left humerus with internal and external rotation with her arm at her side. She notes discomfort with attempted forward elevation or abduction of the left arm passively. Skin abrasions are present across the top of her shoulder. No open wounds. Th ey are scabbed over. No evidence of infectious process. Mild surrounding erythema. No underlying fluctuance or pustules. Results & Data Vital Signs (Past 12 Hours) Vital Signs Temp Pulse Resp BP Pulse Ox O2 Del Method 02/22/25 08:45 Room Air 02/22/25 07:36 36.8 C 78 18 160/84 H 96 Room Air Laboratory Results 02/22/25 Range/Units 08:06 Potassium 4.0 (3.5-5.1) mmol/L Diagnostic Findings Shoulder X-Ray 02/22/25 10:08 XR shoulder LT min 2V routine CLINICAL HISTORY: left proximal humerus fracture COMPARISON: 02/12/2025 FINDINGS: Comminuted proximal humerus fracture demonstrates mild lateral displacement with medial rotation of the humeral head fragment and mild impaction. IMPRESSION: Proximal humerus fracture as described. ACT 112: Negative or not required by law. Electronically signed by: Jimbo Rojo M.D. 02/22/2025 10:52 AM
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
[2025-02-23 07:11] VITALS: BP 165/82; RESP 18; O2SAT 96
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
[2025-02-23 09:07] VITALS: PULSE 72
[2025-02-23] MEDS: INFLUENZA VACC TS2025-26(65y+)/PF (IIV3) 0.5mL Syr IM ONE (09:27)
== END 2025-02-23 09:53 | disposition home health service (06) | DRG 389 ==
LOC: ED 13:51 → SUATTDRO 16:25 → 3N 16:25 → INTOOBSV 16:25 → 3N 18:25

== ENCOUNTER 2025-03-22 08:30 | Inpatient (IN) ==
--- NOTE | 2025-03-22 09:14 | Emergency Department Note ---
Impression & Plan Acute left flank pain, Hypertension, Nausea & vomiting ED Provider Note ED Provider Note NAME: YA RIVERA AGE:74 SEX: Female : 1950 ARRIVES VIA: EMS INFORMANT: Patient ED PROVIDER(s): Paty Song DO CHIEF COMPLAINT: High blood pressure, left flank pain HPI: This is a 74-year-old female brought in by EMS from a local facility complaining of left flank pain and nausea/vomiting. EMS reports staff there was concern for elevated blood pressure reading additionally. Patient states she first began having sharp left-sided flank pain "in her kidney" yesterday afternoon. She states that she began feeling nauseated yesterday evening and overnight. She states she has not taken any of her medications this morning. She states no prior history of recurrent urinary tract infections and no history of kidney stones. She denies any change in her medications. She denies any increased difficulty breathing or chest pain. She denies any recent change in her bowel movements. No black or bloody stools. PAST MEDICAL HISTORY:See Below PAST SURGICAL HISTORY:See Below FAMILY HISTORY:See Below SOCIAL HISTORY:See Below HOME MEDICATIONS:See Below ALLERGIES:See Below VITALS:See Below PHYSICAL EXAMINATION: GENERAL: alert, well appearing, well nourished, no distress, non-toxic EYE EXAM: normal conjunctiva, PERRL and EOM's grossly intact OROPHARYNX: no exudate, no erythema, lips, buccal mucosa, and tongue normal and mucous membranes are dry NECK: supple, no nuchal rigidity, no adenopathy, non-tender LUNGS: Clear to auscultation. Normal chest wall mechanics, no w/r/r HEART: no murmurs, S1 normal and S2 normal ABDOMEN: abdomen soft, mild central abdominal, normo-active bowel sounds, no masses, no rebound or guarding. BACK: Back is symmetrical on inspection and there is no deformity, no midline tenderness, left cva tenderness SKIN: no rashes, petechiae, orbruising UPPER EXTREMITIES: upper extremities are grossly normal. FROM, nml pulses b/l. LOWER EXTREMITIES: No pitting edema. FROM, nml pulses b/l. NEURO EXAM: Normal sensorium, cranial nerves II-XII grossly intact, normal speech, no facial droop,nogross weakness of arms, no gross weakness of legs. Gross sensation intact. No ataxia. Vital Signs: reviewed and remarkable Differential Diagnosis: Ureterolithiasis, pyelonephritis, dissection, pneumonia, occult trauma, hemoperitoneum, colitis, diverticulitis, perforation, GI bleed, as well as others were MEDICAL DECISION MAKING: This is a 74-year-old female who presents to the emergency department via EMS from a local facility due to concern for left flank pain, nausea and vomiting, and hypertension. Patient noted to be hypertensive on arrival however otherwise afebrile and hemodynamically stable. Labs drawn and sent, IV established, EKG and chest x-ray performed and evaluated by me at bedside, the patient was monitored on telemetry. She was started on IV fluids and given IV Tylenol and IV fentanyl for pain control. Urine was collected and sent and the patient sent for CT of the abdomen and pelvis in consideration of the differential diagnosis. Patient did have improvement of her blood pressure with improved pain. She was given IV Zofran additionally and IV Pepcid. 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 I did reach out to on-call urology and spoke with Dr. Quiroz. We discussed her presentation comorbid conditions. Case discussed with the hospitalist team for additional evaluation and management with the plan for urology to take the patient to the operating room for likely ureteral stent to correct her condition. No evidence for infection at this time, no evidence for JEANA. Patient was given a dose of IV labetalol additionally as she would normally take carvedilol at home. I suspect a mild troponin evaluation secondary to the hypertension. Consultation(s): 1214: Discussed with Dr. Quiroz, urology. 1252: Discussed with [facility], admitting hospitalist HAYDEN, for additional evaluation and management. ER Treatment Provided: See below Diagnostics Interpreted By Me: -ECG: Normal sinus at 76, normal axis, normal intervals, no acute ST/T wave changes -Cardiac Monitoring: An order was placed for continuous cardiac monitoring. The monitor shows a rate of 78 with normal sinus rhythm. -Laboratory studies: As stated above and show below. -Imaging studies: ct a/p - no stone, left hydro noted Triage Nursing Note Reviewed Prior/Outside Records Reviewed Past Med/Surg History Problem List (Updated 03/22/25 @ 13:09 by MARIBEL Aguero) Hydronephrosis of left kidney Nausea & vomiting (Acute) Hypertension (Acute) Acute left flank pain (Acute) Nausea & vomiting (Acute) Difficulty performing activity of daily living (ADL) (Acute) Fracture of shoulder (Acute) Abdominal pain (Acute) Abdominal pain (Acute) Proximal humerus fracture Acute hypokalemia Unable to care for self Opioid-induced constipation (Acute) Fecal impaction in rectum (Acute) Closed fracture of shoulder (Acute) Moderate protein-calorie malnutrition (Acute) Polypharmacy (Acute) Underweight (BMI < 18.5) Age-related physical debility (Acute) Frailty syndrome in geriatric patient (Acute) Simple chronic bronchitis Hyperlipidemia (Acute) 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) Hypertension (Chronic) 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) Carotid artery disease (Chronic) Hypertrophic cardiomyopathy (Chronic) Recurrent falls (Chronic) Anxiety (Chronic) Medical History Syncope COVID-19 Sigmoid diverticulitis Diverticulitis Uncontrolled hypertension Acute dehydration Weakness AAA (abdominal aortic aneurysm) Surgical History S/P tubal ligation Family History Other Diabetes Social History Smoking Status: Former smoker Tobacco Type: Cigarettes packs per day: 0.5; Cigarettes Per Day: 1/4 ppd; Second Hand Exposure: No; Do You Dip or Chew Tobacco: No; Hx Alcohol Use: No Hx Substance Use: No Preferred Language: Spanish Communication Ability: Effective 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 Beliefs That Will Affect Care: None Current Living Situation: Spouse Current Living Situation Comment: lives in 2 story home with Feels Safe at Home: Yes Assistive Devices: None Allergies Allergies Allergy/AdvReac Type Severity Reaction Status Date / Time salicylates AdvReac Intermediate INTOLERANCE Verified 02/27/25 16:21 Home Meds Home Medications Medication Instructions Recorded Confirmed albuterol sulfate 90 mcg/actuation 2 puff inhalation Q6H PRN 08/23/22 03/22/25 aerosol inhaler Shortness Of Breath Or Wheezing alprazolam 0.25 mg tablet 0.25 mg PO TID PRN anxiety 05/02/23 03/22/25 paroxetine HCl 12.5 mg 12.5 mg PO QAM 05/02/23 03/22/25 tablet,extended release 24 hr aspirin 81 mg chewable tablet 81 mg PO QAM 09/21/23 03/22/25 carvedilol 3.125 mg tablet 3.125 mg PO AMHS 09/21/23 03/22/25 amlodipine 5 mg tablet 5 mg PO QAM 12/19/24 03/22/25 rosuvastatin 20 mg tablet 20 mg PO QAM 12/19/24 03/22/25 acetaminophen 500 mg tablet 1,000 mg PO Q8H PAIN/FEVER 02/27/25 03/22/25 (Tylenol Extra Strength) trazodone 50 mg tablet 50 mg PO HS PRN Sleep 02/27/25 03/22/25 Previous Rx's Medication Instructions Recorded docusate sodium 100 mg capsule 100 mg PO BID PRN Constipation #30 02/25/24 caps fluticasone propionate 50 2 spray NA DAILY PRN Nasal 02/25/24 mcg/actuation nasal congestion #16 grams spray,suspension Results & Data (ED) Vital Signs Vital Signs - 24 hr 03/22/25 08:44 03/22/25 08:51 03/22/25 09:00 Temperature 36.4 C L Temperature Source Oral Pulse Rate 74 75 74 Pulse Rate [Left Finger] Pulse Rate from SpO2 Sensor 74 Pulse Rhythm [Left Finger] Pulse Strength [Left Finger] Respiratory Rate 20 25 H Respiratory Effort / Characteristics Respiratory Depth Respiratory Pattern Blood Pressure 229/117 H 224/107 H Blood Pressure [Left Arm] Blood Pressure Mean 154 146 Blood Pressure Mean [Left Arm] Blood Pressure Position [Left Arm] Pulse Oximetry 98 98 Oxygen Delivery Method Room Air Sepsis Recent Fever Within 48 Hours No Sepsis New/Unexplained Change in Mental Status N/A Sepsis Action Taken by Nursing No Action Required 03/22/25 09:30 03/22/25 09:42 03/22/25 09:45 Temperature Temperature Source Pulse Rate 79 76 76 Pulse Rate [Left Finger] Pulse Rate from SpO2 Sensor 79 76 76 Pulse Rhythm [Left Finger] Pulse Strength [Left Finger] Respiratory Rate 27 H 20 17 Respiratory Effort / Characteristics Respiratory Depth Respiratory Pattern Blood Pressure 223/111 H 227/104 H Blood Pressure [Left Arm] Blood Pressure Mean 148 145 Blood Pressure Mean [Left Arm] Blood Pressure Position [Left Arm] Pulse Oximetry 97 98 95 Oxygen Delivery Method Sepsis Recent Fever Within 48 Hours Sepsis New/Unexplained Change in Mental Status Sepsis Action Taken by Nursing 03/22/25 10:00 03/22/25 10:15 03/22/25 10:30 Temperature Temperature Source Pulse Rate 77 80 77 Pulse Rate [Left Finger] Pulse Rate from SpO2 Sensor 78 Pulse Rhythm [Left Finger] Pulse Strength [Left Finger] Respiratory Rate 16 21 22 Respiratory Effort / Characteristics Respiratory Depth Respiratory Pattern Blood Pressure 202/107 H 203/97 H 167/98 H Blood Pressure [Left Arm] Blood Pressure Mean 138 132 121 Blood Pressure Mean [Left Arm] Blood Pressure Position [Left Arm] Pulse Oximetry 94 Oxygen Delivery Method Sepsis Recent Fever Within 48 Hours Sepsis New/Unexplained Change in Mental Status Sepsis Action Taken by Nursing 03/22/25 10:45 03/22/25 11:00 03/22/25 11:28 Temperature Temperature Source Pulse Rate 75 74 Pulse Rate [Left Finger] Pulse Rate from SpO2 Sensor Pulse Rhythm [Left Finger] Pulse Strength [Left Finger] Respiratory Rate 23 22 Respiratory Effort / Characteristics Respiratory Depth Respiratory Pattern Blood Pressure 170/97 H 189/102 H 218/116 H Blood Pressure [Left Arm] Blood Pressure Mean 121 131 172 Blood Pressure Mean [Left Arm] Blood Pressure Position [Left Arm] Pulse Oximetry Oxygen Delivery Method Sepsis Recent Fever Within 48 Hours Sepsis New/Unexplained Change in Mental Status Sepsis Action Taken by Nursing 03/22/25 11:30 03/22/25 11:45 03/22/25 12:00 Temperature Temperature Source Pulse Rate 72 73 67 Pulse Rate [Left Finger] Pulse Rate from SpO2 Sensor 72 74 68 Pulse Rhythm [Left Finger] Pulse Strength [Left Finger] Respiratory Rate 12 28 H 17 Respiratory Effort / Characteristics Respiratory Depth Respiratory Pattern Blood Pressure 205/99 H 209/100 H 121/75 Blood Pressure [Left Arm] Blood Pressure Mean 134 136 90 Blood Pressure Mean [Left Arm] Blood Pressure Position [Left Arm] Pulse Oximetry 98 98 92 Oxygen Delivery Method Sepsis Recent Fever Within 48 Hours Sepsis New/Unexplained Change in Mental Status Sepsis Action Taken by Nursing 03/22/25 12:01 03/22/25 12:15 03/22/25 12:16 Temperature Temperature Source Pulse Rate 75 Pulse Rate [Left Finger] Pulse Rate from SpO2 Sensor 75 Pulse Rhythm [Left Finger] Pulse Strength [Left Finger] Respiratory Rate 19 Respiratory Effort / Characteristics Respiratory Depth Respiratory Pattern Blood Pressure 121/75 161/96 H 161/96 H Blood Pressure [Left Arm] Blood Pressure Mean 92 117 125 Blood Pressure Mean [Left Arm] Blood Pressure Position [Left Arm] Pulse Oximetry 97 Oxygen Delivery Method Sepsis Recent Fever Within 48 Hours Sepsis New/Unexplained Change in Mental Status Sepsis Action Taken by Nursing 03/22/25 12:18 03/22/25 12:30 03/22/25 12:41 Temperature Temperature Source Pulse Rate 68 71 71 Pulse Rate [Left Finger] Pulse Rate from SpO2 Sensor 68 71 Pulse Rhythm [Left Finger] Pulse Strength [Left Finger] Respiratory Rate 15 20 Respiratory Effort / Characteristics Respiratory Depth Respiratory Pattern Blood Pressure 207/103 H 207/103 H Blood Pressure [Left Arm] Blood Pressure Mean 137 Blood Pressure Mean [Left Arm] Blood Pressure Position [Left Arm] Pulse Oximetry 94 96 Oxygen Delivery Method Sepsis Recent Fever Within 48 Hours Sepsis New/Unexplained Change in Mental Status Sepsis Action Taken by Nursing 03/22/25 12:45 03/22/25 12:47 03/22/25 12:49 Temperature Temperature Source Pulse Rate 69 71 Pulse Rate [Left Finger] Pulse Rate from SpO2 Sensor 69 Pulse Rhythm [Left Finger] Pulse Strength [Left Finger] Respiratory Rate 26 H Respiratory Effort / Characteristics Respiratory Depth Respiratory Pattern Blood Pressure 138/84 Blood Pressure [Left Arm] Blood Pressure Mean 101 Blood Pressure Mean [Left Arm] Blood Pressure Position [Left Arm] Pulse Oximetry 95 Oxygen Delivery Method Sepsis Recent Fever Within 48 Hours Sepsis New/Unexplained Change in Mental Status Sepsis Action Taken by Nursing 03/22/25 12:56 03/22/25 13:05 03/22/25 13:15 Temperature 36.5 C 37.5 C Temperature Source Oral Oral Pulse Rate 69 Pulse Rate [Left Finger] 68 66 Pulse Rate from SpO2 Sensor Pulse Rhythm [Left Finger] Regular Regular Pulse Strength [Left Finger] Normal Normal Respiratory Rate 20 20 Respiratory Effort / Characteristics Non-Labored Spontaneous Non-Labored Spontaneous Respiratory Depth Normal Normal Respiratory Pattern Regular Regular Blood Pressure 148/79 H Blood Pressure [Left Arm] 129/69 128/86 Blood Pressure Mean Blood Pressure Mean [Left Arm] 89 100 Blood Pressure Position [Left Arm] Semi-fowlers Semi-fowlers Pulse Oximetry 92 98 Oxygen Delivery Method Room Air Room Air Sepsis Recent Fever Within 48 Hours Sepsis New/Unexplained Change in Mental Status Sepsis Action Taken by Nursing Laboratory Data 03/22/25 10:08 03/22/25 10:08 Lab Results 03/22/25 03/22/25 Range/Units 08:57 10:08 WBC 9.63 (4.8-10.8) K/ul RBC 3.86 L (4.20-5.40) M/uL Hgb 12.1 (12.0-16.0) g/dL Hct 36.3 L (37.0-47.0) % MCV 94.0 (80.0-100.0) fL MCH 31.3 (25.0-34.0) pg MCHC 33.3 (32.0-36.0) g/dL RDW Std Deviation 46.3 (36.4-46.3) fL RDW Coeff of [place] 13.4 (11.5-14.5) % Plt Count 148 (130-400) K/uL MPV 9.7 (9.4-12.4) fL Immature Gran % (Auto) 0.3 % Neut % (Auto) 81.3 % Lymph % (Auto) 10.5 % [place] % (Auto) 7.0 % Eos % (Auto) 0.4 % Baso % (Auto) 0.5 % Neut # (Auto) 7.83 H (1.40-6.50) K/uL Lymph # (Auto) 1.01 L (1.20-3.40) K/uL [place] # (Auto) 0.67 H (0.11-0.59) K/uL Eos # (Auto) 0.04 (0.00-0.50) K/uL Baso # (Auto) 0.05 (0.00-0.20) K/uL Immature Gran # (Auto) 0.03 (0.01-0.20) K/uL PT 10.9 (9.0-12.0) Seconds INR 1.0 (0.9-1.1) Sodium 136 (136-145) mmol/L Potassium 3.9 (3.5-5.1) mmol/L Chloride 100 (98-107) mmol/L Carbon Dioxide 29 (21-32) mmol/L Anion Gap 7 (3-11) BUN 24 H (6-23) mg/dl Creatinine 0.98 (0.6-1.2) mg/dl Est Cr Clr Drug Dosing 39.1 ml/min eGFR 61.33 BUN/Creatinine Ratio 24.5 H (10-20) Glucose 104 H (70-99(Fasting)) mg/dl Calcium 9.0 (8.6-10.3) mg/dl Magnesium 2.1 (1.7-2.4) mg/dl Total Bilirubin 0.6 (0.2-1.0) mg/dl AST 32 (13-39) U/L ALT 66 H (7-52) U/L Alkaline Phosphatase 85 (34-104) U/L Troponin I High Sens 15.0 H (0-14) pg/ml Total Protein 6.4 (6.0-8.3) gm/dl Albumin 3.5 (3.4-5.0) gm/dl Globulin 2.9 (2.5-4.0) gm/dl Albumin/Globulin Ratio 1.2 (0.9-2) Lipase 20 (11-82) U/L Urine Color Yellow Urine Appearance Clear (Clear) Urine pH 8.5 H (4.5-7.5) Ur Specific [place] 1.010 (1.000-1.030) Urine Protein 1+ H (Negative) Urine Glucose (UA) Negative (Negative) Urine Ketones Negative (Negative) Urine Blood Negative (Negative) Urine Nitrite Negative (Negative) Urine Bilirubin Negative (Negative) Urine Urobilinogen Negative (Negative) Ur Leukocyte Esterase Negative (Negative) Urine WBC (Auto) 0-5 (0-5) /hpf Urine RBC (Auto) 0-2 (0-2) /hpf U Hyaline Cast (Auto) 0-2 (0-2) /lpf U Epithel Cells (Auto) 0-2 (0-2) /hpf Urine Bacteria (Auto) None Seen (None Seen) Urine Comment Administered Medications Acetaminophen (Acetaminophen 325 Mg Tab) 650 mg PO Q4H PRN PRN Reason: pain/fever Stop: 04/21/25 17:05 Last Admin: 03/22/25 17:22 Dose: 650 mg Documented By: MODESTA Fentanyl Citrate (Fentanyl Citrate Pf 100 Mcg/2 Ml Vial) 50 mcg IV Q15M PRN PRN Reason: Pain Stop: 04/05/25 09:14 Last Admin: 03/22/25 11:44 Dose: 50 mcg Documented By: CEF Sodium Chloride (Nss) 1,000 mls @ 125 mls/hr IV .Q8H KEELY Stop: 03/25/25 09:14 Last Admin: 03/22/25 17:56 Dose: 125 mls/hr Documented By: Infusion: 03/22/25 17:36 Dose: Infused Documented By: Admin: 03/22/25 09:36 Dose: 125 mls/hr Documented By: SAMEERA Morphine Sulfate (Morphine Sulfate 2 Mg/Ml Carp) 2 mg IV Q1H PRN PRN Reason: Pain Stop: 04/05/25 12:21 Last Admin: 03/22/25 12:44 Dose: 2 mg Documented By: SAMEERA Ondansetron HCl (Ondansetron 4 Mg Od Tab) 4 mg PO Q4H PRN PRN Reason: Nausea And Vomiting Stop: 04/21/25 17:05 Last Admin: 03/22/25 17:22 Dose: 4 mg Documented By: MODESTA Discontinued Medications Cefazolin Sodium (Cefazolin 2,000 Mg/15 Ml Iv Push) Confirm Administered Dose 2,000 mg IV .STK-MED ONE Stop: 03/22/25 13:30 Last Admin: 03/22/25 17:27 Dose: Not Given Documented By: MODESTA Diatrizoate Meglumine (Diatrizoate Meglumine 30% 100ml Vial) 30 ml INSTIL ONCE ONE Stop: 03/22/25 13:58 Last Admin: 03/22/25 15:04 Dose: 64 ml Documented By: [id number] Acetaminophen (Ofirmev) 1,000 mg in 100 mls @ 400 mls/hr IV NOW STA Stop: 03/22/25 09:29 Last Infusion: 03/22/25 11:20 Dose: Infused Documented By: Admin: 03/22/25 09:39 Dose: 400 mls/hr Documented By: SAMEERA Famotidine (Pepcid 20mg Iv Push) 20 mg in 5 mls @ 2.5 mls/min IV NOW STA Stop: 03/22/25 12:55 Last Admin: 03/22/25 17:27 Dose: Not Given Documented By: MODESTA Cefazolin Sodium (Ancef 2000mg) 2,000 mg in 15 mls @ 3.75 mls/min IV PREOP ONE; Protocol Stop: 03/22/25 13:30 Last Admin: 03/22/25 13:44 Dose: 3.75 mls/min Documented By: [id number] Ioversol (Optiray 320 100ml) 94 ml IV ONCE ONE Stop: 03/22/25 11:11 Last Admin: 03/22/25 11:11 Dose: 94 ml Documented By: BRIDGETT Labetalol HCl (Labetalol Hcl Iv 5 Mg/Ml 20ml) 5 mg IV NOW STA Stop: 03/22/25 12:23 Last Admin: 03/22/25 12:41 Dose: 5 mg Documented By: CEF Ondansetron HCl (Ondansetron Inj 2 Mg/Ml 2 Ml Vial) 4 mg IV NOW STA Stop: 03/22/25 09:16 Last Admin: 03/22/25 09:34 Dose: 4 mg Documented By: CEF Imaging Data Radiologist's Impression: Retrograde Pyelogram 03/22/25 00:00 FL retrograde includes kub CLINICAL HISTORY: LEFT STENT COMPARISON STUDY: None FLUOROSCOPY TIME: 1226 seconds FLUOROSCOPY IMAGES: 28 EXPOSURE DOSE: 155 mGy FINDINGS: Fluoroscopy was provided for urologic procedure. IMPRESSION: Intraoperative fluoroscopy. ACT 112: Negative or not required by law. Electronically signed by: Jimbo Rojo M.D. 03/22/2025 3:40 PM Abdomen/Pelvis CT 03/22/25 09:15 CT SCAN OF THE ABDOMEN AND PELVIS WITH IV CONTRAST CLINICAL HISTORY: Left flank pain. COMPARISON STUDY: CT of the abdomen and pelvis February 27, 2025. KUB March 01, 2025. TECHNIQUE: Following the IV administration of 94 cc of Optiray 320, CT scan of the abdomen and pelvis is performed from the lung bases to the proximal femora. Images are reviewed in the axial, sagittal, and coronal planes. IV contrast was administered without complication. A dose lowering technique was utilized adhering to the principles of ALARA. CT DOSE: 458.88 mGy.cm FINDINGS: There is a small left pleural effusion. Note is again made of a 4.6 cm aneurysm of the distal descending thoracic aorta which contains extensive plaque. This is unchanged since CT of February 27, 2025. There is extensive aortoiliac atherosclerotic plaque as well as well as a stable 3.3 cm infrarenal abdominal aortic aneurysm. No evidence for rupture. There is no pneumatosis, free air or portal venous gas. There are no suspicious hepatic lesions. A few small cysts are present. Spleen, adrenal glands and pancreas are unremarkable. There is severe left hydroureteronephrosis with delayed nephrogram and extensive left perinephric/left upper quadrant fluid. Of note, the left ureter slightly extends into the anterior aspect of the left sciatic foramen on image 270 of 349. The ureter is dilated proximal to this hernia and decompressed distally. There are no ureteral calculi. There is no right hydronephrosis. No evidence for a bowel obstruction. There is colonic diverticulosis without evidence for acute diverticulitis. There is anasarca. IMPRESSION: 1. Herniation of the left ureter into the left sciatic foramen resulting in severe left hydroureteronephrosis with delayed nephrographic and extensive perinephric/left upper quadrant fluid. 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 Urology consultation is recommended. 2. Small left pleural effusion. 3. Redemonstration of distal descending thoracic aortic and infrarenal abdominal aortic aneurysms. Extensive atherosclerotic plaque. No rupture. ACT 112: Negative or not required by law. Electronically signed by: Chris Carter M.D. 03/22/2025 11:35 AM Chest X-Ray 03/22/25 09:16 XR chest 1V portable CLINICAL HISTORY: hypertension COMPARISON STUDY: 03/05/2025 FINDINGS: Heart size and pulmonary vasculature are normal. No consolidation or pleural effusion. Skinfold artifact overlies the right chest. No pneumothorax seen. IMPRESSION: No acute findings. ACT 112: Negative or not required by law. Electronically signed by: Jimbo Rojo M.D. 03/22/2025 9:44 AM Discharge Plan Visit Data Chief Complaint: Hypertension Stated Complaint: HTN, NAUSEA,VOMITING ED Provider: Paty Song Discharge Problem: Acute left flank pain, Hypertension, Nausea & vomiting Patient Disposition: Admitted As Inpatient Condition: Fair Discharge Instructions Interventions: ED Discharge Assessment Last Done: 03/22/25 12:58
[2025-03-22] MEDS: ONDANSETRON INJ 2 MG/ML 2 ML VIAL IV STA (09:34)
[2025-03-22] MEDS: SODIUM CHLORIDE 0.9% 1,000 ML IV SCH (09:36)
[2025-03-22 09:39] LABS: Appearance Urine Clear (Clear); Bacteria Urine Automated None Seen (None Seen); Cast Urine Automated 0-2 /lpf (0-2); Epithelial Cell Urine Auto 0-2 /hpf (0-2); Glucose Urine UA Negative (Negative); RBC Urine Automated 0-2 /hpf (0-2); WBC Urine Automated 0-5 /hpf (0-5)
[2025-03-22] MEDS: ACETAMINOPHEN 1,000 MG/100 ML VIAL IV STA (09:39)
--- NOTE | 2025-03-22 09:45 | XRay Report ---
XR chest 1V portable CLINICAL HISTORY: hypertension COMPARISON STUDY: 03/05/2025 FINDINGS: Heart size and pulmonary vasculature are normal. No consolidation or pleural effusion. Skin fold artifact overlies the right chest. No pneumothorax seen. IMPRESSION: No acute findings. ACT 112: Negative or not required by law. Electronically signed by: Jimbo Rojo M.D. 03/22/2025 9:44 AM
[2025-03-22 10:24] LABS: Hematocrit (blood only) 36.3 % (37.0-47.0); Hemoglobin 12.1 g/dL (12.0-16.0); Immature Granulocytes # (auto) 0.03 K/uL (0.01-0.20); Immature Granulocytes % (auto) 0.3 %; Mean Corpuscular Hemoglobin 31.3 pg (25.0-34.0); Mean Corpuscular Volume 94.0 fL (80.0-100.0); Platelet Count 148 K/uL (130-400); RDW Standard Deviation 46.3 fL (36.4-46.3); Red Blood Count 3.86 M/uL (4.20-5.40); White Blood Count 9.63 K/ul (4.8-10.8)
[2025-03-22 10:39] LABS: Alanine Aminotransferase 66.0 U/L (7-52); Albumin Globulin Ratio 1.2 (0.9-2); Albumin Level 3.5 gm/dl (3.4-5.0); Alkaline Phosphatase 85.0 U/L (34-104); Anion Gap 7.0 (3-11); Bilirubin,Total 0.6 mg/dl (0.2-1.0); Blood Urea Nitrogen 24.0 mg/dl (6-23); Calcium 9.0 mg/dl (8.6-10.3); Carbon Dioxide 29.0 mmol/L (21-32); Chloride 100.0 mmol/L (98-107); Creatinine Clr Calc Pharmacy 39.1 ml/min; Globulin 2.9 gm/dl (2.5-4.0); Glucose 104.0 mg/dl (70-99(Fasting)); Lipase 20.0 U/L (11-82); Magnesium 2.1 mg/dl (1.7-2.4); Potassium 3.9 mmol/L (3.5-5.1); Sodium 136.0 mmol/L (136-145); Total Protein 6.4 gm/dl (6.0-8.3)
[2025-03-22 10:50] LABS: INR 1.0 (0.9-1.1); Prothrombin Time 10.9 Seconds (9.0-12.0)
[2025-03-22] MEDS: OPTIRAY 320 100ml IV ONE (11:11)
--- NOTE | 2025-03-22 11:37 | CT Scan Report ---
CT SCAN OF THE ABDOMEN AND PELVIS WITH IV CONTRAST CLINICAL HISTORY: Left flank pain. COMPARISON STUDY: CT of the abdomen and pelvis February 27, 2025. KUB March 01, 2025. TECHNIQUE: Following the IV administration of 94 cc of Optiray 320, CT scan of the abdomen and pelvi s is performed from the lung bases to the proximal femora. Images are reviewed in the axial, sagittal , and coronal planes. IV contrast was administered without complication. A dose lowering technique wa s utilized adhering to the principles of ALARA. CT DOSE: 458.88 mGy.cm FINDINGS: There is a small left pleural effusion. Note is again made of a 4.6 cm aneurysm of the dist al descending thoracic aorta which contains extensive plaque. This is unchanged since CT of February 072024. There is extensive aortoiliac atherosclerotic plaque as well as well as a stable 3.3 cm infr arenal abdominal aortic aneurysm. No evidence for rupture. There is no pneumatosis, free air or kari l venous gas. There are no suspicious hepatic lesions. A few small cysts are present. Spleen, adrenal glands and pancreas are unremarkable. There is severe left hydroureteronephrosis with delayed nephro gram and extensive left perinephric/left upper quadrant fluid. Of note, the left ureter slightly exte nds into the anterior aspect of the left sciatic foramen on image 270 of 349. The ureter is dilated p roximal to this hernia and decompressed distally. There are no ureteral calculi. There is no right hy dronephrosis. No evidence for a bowel obstruction. There is colonic diverticulosis without evidence f or acute diverticulitis. There is anasarca. IMPRESSION: 1. Herniation of the left ureter into the left sciatic foramen resulting in severe left hydroureteron ephrosis with delayed nephrographic and extensive perinephric/left upper quadrant fluid. The left ure ter slightly extends into the sciatic foramen consistent with a ureteric hernia resulting in obstruct ion. Urology consultation is recommended. 2. Small left pleural effusion. 3. Redemonstration of distal descending thoracic aortic and infrarenal abdominal aortic aneurysms. Ex tensive atherosclerotic plaque. No rupture. ACT 112: Negative or not required by law. Electronically signed by: Chris Carter M.D. 03/22/2025 11:35 AM
[2025-03-22] MEDS: LABETALOL HCL IV 5 MG/ML 20ML IV STA (12:41)
[2025-03-22] MEDS: MoRPHine SULFATE 2 MG/ML CARP IV PRN (12:44)
--- NOTE | 2025-03-22 13:01 | Urology Consultation ---
Date of Consultation March 22, 2025 Assessment & Plan (1) Hydronephrosis of left kidney: (2) Acute left flank pain: (3) Hypertension: (4) Nausea & vomiting: Plan 74yo female admitted with severe hypertension and acute left flank pain. CT abd pelvis demonstrated herniation of the left ureter into the left sciatic foramen resulting in severe left hydroureteronephrosis. Reviewed CT findings with patient and her daughter Glo (via phone call). Discussed finding of severe left hydronephrosis secondary to herniation of the left ureter into the left sciatic foramen. Discussed recommendation to proceed to the OR for cystoscopy and left ureteral stent placement. Ureteral stents were discussed as well as postoperative issues and pain management. Also discussed possible risk of failure to place ureteral stent and possible need for transfer for nephrostomy tube. Risks and benefits were discussed extensively. All questions were answered. Patient agreeable to proceeding. Will plan to proceed to the OR today for cystoscopy, left retrograde pyelogram, left ureteral stent placement. Risks and benefits to be reviewed with patient by Dr. Quiroz. Keep NPO. Will cover with antibiotics preoperatively. Urology to follow. Attending note: Patient independently assessed, examined, interviewed, and evaluated. Agree with note as above. Patient's vitals and labs were all reviewed. Pertinent values in the HPI and plan section. Imaging was reviewed interpreted by myself. Severe hydronephrosis with ureter ending along the pelvic wall on the left at approximately the mid to distal ureter with an abrupt change in caliber with what appears to be projection of the ureter into the herniated portion. Per radiology read may be a herniation through the sciatic foramen/canal. Otherwise agree with read. Vitals were reviewed. Discussed findings extensively with patient and family. Reviewed with nurse practitioner as well as consulting physicians/team. Patient's complicated medical and surgical history was reviewed and summarized above. Patient's surgical, medical, social, and family history were all reviewed with pertinent values as above. Discussed patient's current diagnosis as well as concerns and issues. Reviewed different options moving forward. Discussed potential risks and benefits as well as possible options and concerns. Reviewed potential surgical options and interventions. Discussed potential issues and concerns related to intervention. Risk and benefits were discussed extensively with patient and any available family. Discussed potential risks related to anesthesia. Discussed risks of bleeding infection and injury. Discussed extensively options for stent placement. Discussed concerns and issues. Reviewed with patient. Nurse practitioner additionally spoke with patient's daughter. Confirm plan moving forward. Patient was agreeable. Risks and benefits discussed at length for procedure. These include bleeding, infection, injury to surrounding tissues or organs, and risks associated with anesthesia. Patient states understanding and agrees to proceed. Will sign consent and schedule. Plan for cystoscopy with possible left stent History of Present Illness History of Present Illness 74-year-old female who presented to the ED today for left flank pain and nausea. Patient reported that the flank pain started yesterday with associated nausea. In the ED, she was afebrile but severely hypertensive. Labs showed no leukocytosis and normal renal function. Urinalysis without signs of infection or blood. CT abd pelvis demonstrated herniation of the left ureter into the left sciatic foramen resulting in severe left hydroureteronephrosis with delayed nephrographic and extensive perinephric/left upper quadrant fluid. 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 ED course: Fentanyl, Morphine, Zofran, Labetaolol. Patient being admitted to medicine service. Patient seen in the ED. Awake and resting in bed on arrival. NAD. Has been NPO. Allergies Allergy/AdvReac Type Severity Reaction Status Date / Time salicylates AdvReac Intermediate INTOLERANCE Verified 02/27/25 16:21 Home Medications Medication Instructions Recorded Confirmed Type albuterol sulfate 90 mcg/actuation 2 puff inhalation Q6H PRN 08/23/22 03/22/25 History aerosol inhaler Shortness Of Breath Or Wheezing alprazolam 0.25 mg tablet 0.25 mg PO TID PRN anxiety 05/02/23 03/22/25 History paroxetine HCl 12.5 mg 12.5 mg PO QAM 05/02/23 03/22/25 History tablet,extended release 24 hr aspirin 81 mg chewable tablet 81 mg PO QAM 09/21/23 03/22/25 History carvedilol 3.125 mg tablet 3.125 mg PO AMHS 09/21/23 03/22/25 History docusate sodium 100 mg capsule 100 mg PO BID PRN Constipation #30 02/25/24 03/22/25 Rx caps fluticasone propionate 50 2 spray NA DAILY PRN Nasal 02/25/24 03/22/25 Rx mcg/actuation nasal congestion #16 grams spray,suspension amlodipine 5 mg tablet 5 mg PO QAM 12/19/24 03/22/25 History rosuvastatin 20 mg tablet 20 mg PO QAM 12/19/24 03/22/25 History acetaminophen 500 mg tablet 1,000 mg PO Q8H PAIN/FEVER 02/27/25 03/22/25 History (Tylenol Extra Strength) trazodone 50 mg tablet 50 mg PO HS PRN Sleep 02/27/25 03/22/25 History Patient History Medical History Syncope COVID-19 Sigmoid diverticulitis Diverticulitis Uncontrolled hypertension Acute dehydration Weakness AAA (abdominal aortic aneurysm) Surgical History S/P tubal ligation Family History Other Diabetes Social History Smoking Status: Former smoker Tobacco Type: Cigarettes packs per day: 0.5; Cigarettes Per Day: 1/4 ppd; Second Hand Exposure: No; Do You Dip or Chew Tobacco: No; Hx Alcohol Use: No Hx Substance Use: No Preferred Language: Italian Communication Ability: Effective Information Technology Program Manager Required: No Beliefs That Will Affect Care: None Current Living Situation: Spouse Current Living Situation Comment: lives in 2 story home with Feels Safe at Home: Yes Assistive Devices: None Review of Systems Review of Systems: All systems reviewed & are unremarkable except as noted in HPI & below Physical Exam Constitutional: no acute distress Respiratory: no respiratory distress and no labored breathing Neurologic: awake Psychiatric: Orientation: alert, oriented x 3 and cooperative Results & Data Vital Signs (Past 12 Hours) Vital Signs Temp Pulse Resp BP Pulse Ox O2 Del Method 03/22/25 12:56 69 148/79 H 03/22/25 12:49 71 03/22/25 12:47 138/84 03/22/25 12:45 69 26 H 95 03/22/25 12:41 71 207/103 H 03/22/25 12:30 71 20 207/103 H 96 03/22/25 12:18 68 15 94 03/22/25 12:16 161/96 H 03/22/25 12:15 75 19 161/96 H 97 03/22/25 12:01 121/75 03/22/25 12:00 67 17 121/75 92 03/22/25 11:45 73 28 H 209/100 H 98 03/22/25 11:30 72 12 205/99 H 98 03/22/25 11:28 218/116 H 03/22/25 11:00 74 22 189/102 H 03/22/25 10:45 75 23 170/97 H 03/22/25 10:30 77 22 167/98 H 03/22/25 10:15 80 21 203/97 H 03/22/25 10:00 77 16 202/107 H 94 03/22/25 09:45 76 17 227/104 H 95 03/22/25 09:42 76 20 223/111 H 98 03/22/25 09:30 79 27 H 97 03/22/25 09:00 74 25 H 224/107 H 98 03/22/25 08:51 36.4 C L 75 20 229/117 H 98 Room Air 03/22/25 08:44 74 PG Care Time/CCT Total # of Minutes Spent Total Time Spent with Patient: Total time spent is greater than 50% in coordination of care (as documented) at patient's floor/unit and/or counseling patient: Coding Level of Care Code 63151 INT INP/OBS CARE 3/75MIN Diagnoses Hydronephrosis of left kidney N13.30 Acute left flank pain R10.A2 Hypertension I10 Nausea & vomiting R11.2
[2025-03-22] MEDS ORDERED: LIDOCAINE 2% 2 ML VIAL/AMP(20MG/ML) INFIL ONE (13:05)
[2025-03-22] MEDS ORDERED: PROPOFOL IV EMULSION 10 MG/ML 20 ML VIAL IV ONE ×2 (13:05→15:04)
[2025-03-22] MEDS ORDERED: MIDAZOLAM HCL 1 MG/ML 2ML VIAL ONE (13:05)
[2025-03-22] MEDS ORDERED: ONDANSETRON INJ 2 MG/ML 2 ML VIAL ONE (13:05)
--- NOTE | 2025-03-22 13:07 | History & Physical Report ---
"Date of Service March 22, 2025 History of Present Illness Chief Complaint: L sided flank pain w/ N/V x3 days Primary Care Provider: Gurpreet Lo III, 74 y/o F w/ PMHx of HLD, HTN, CAD, Queen esophagus who presents c/o L sided flank pain w/ N/V x3 days. Pt states that her pain started 3 days ago in her L side and progressively worsened over the course of 3 days. Pt admits to nausea and vomiting over the past 3 days and notes that her appetite has been markedly decreased since the onset of pain. Pt states that she feels as thought she has been urinating more frequently since the onset of pain. Pt states that her pain was not relieved with positional changes and denies trying anything else to alleviate her symptoms. Pt denies H/A, cough, SOB, CP, palpitations, and Diarrhea. Pt was transported from [facility] to the ED via EMS. While in the ED, the patient received a CT scan that demonstrated herniation of the Lt ureter into the left sciatic foramen resulting in severe left hydroureteronephrosis with delayed nephrographic and extensive perinephric/left upper quadrant fluid. The ED physician stated that she contacted Urology and that they recommended stent placement. Pt is being admitted for further evaluation and care. Recent D/C on 03/08 Allergies Allergy/AdvReac Type Severity Reaction Status Date / Time salicylates AdvReac Intermediate INTOLERANCE Verified 02/27/25 16:21 Home Medications Medication Instructions Recorded Confirmed Type albuterol sulfate 90 mcg/actuation 2 puff inhalation Q6H PRN 08/23/22 03/22/25 History aerosol inhaler Shortness Of Breath Or Wheezing alprazolam 0.25 mg tablet 0.25 mg PO TID PRN anxiety 05/02/23 03/22/25 History paroxetine HCl 12.5 mg 12.5 mg PO QAM 05/02/23 03/22/25 History tablet,extended release 24 hr aspirin 81 mg chewable tablet 81 mg PO QAM 09/21/23 03/22/25 History carvedilol 3.125 mg tablet 3.125 mg PO AMHS 09/21/23 03/22/25 History docusate sodium 100 mg capsule 100 mg PO BID PRN Constipation #30 02/25/24 03/22/25 Rx caps fluticasone propionate 50 2 spray NA DAILY PRN Nasal 02/25/24 03/22/25 Rx mcg/actuation nasal congestion #16 grams spray,suspension amlodipine 5 mg tablet 5 mg PO QAM 12/19/24 03/22/25 History rosuvastatin 20 mg tablet 20 mg PO QAM 12/19/24 03/22/25 History acetaminophen 500 mg tablet 1,000 mg PO Q8H PAIN/FEVER 02/27/25 03/22/25 History (Tylenol Extra Strength) trazodone 50 mg tablet 50 mg PO HS PRN Sleep 02/27/25 03/22/25 History Past Med/Surg History Problem List (Updated 03/22/25 @ 13:09 by MARIBEL Aguero) Hydronephrosis of left kidney Nausea & vomiting (Acute) Hypertension (Acute) Acute left flank pain (Acute) Nausea & vomiting (Acute) Difficulty performing activity of daily living (ADL) (Acute) Fracture of shoulder (Acute) Abdominal pain (Acute) Abdominal pain (Acute) Proximal humerus fracture Acute hypokalemia Unable to care for self Opioid-induced constipation (Acute) Fecal impaction in rectum (Acute) Closed fracture of shoulder (Acute) Moderate protein-calorie malnutrition (Acute) Polypharmacy (Acute) Underweight (BMI < 18.5) Age-related physical debility (Acute) Frailty syndrome in geriatric patient (Acute) Simple chronic bronchitis Hyperlipidemia (Acute) 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) Hypertension (Chronic) 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) Carotid artery disease (Chronic) Hypertrophic cardiomyopathy (Chronic) Recurrent falls (Chronic) Anxiety (Chronic) Medical History Syncope COVID-19 Sigmoid diverticulitis Diverticulitis Uncontrolled hypertension Acute dehydration Weakness AAA (abdominal aortic aneurysm) Surgical History S/P tubal ligation Family History Other Diabetes Social History Smoking Status: Former smoker Tobacco Type: Cigarettes packs per day: 0.5; Cigarettes Per Day: 1/4 ppd; Second Hand Exposure: No; Do You Dip or Chew Tobacco: No; Hx Alcohol Use: No Hx Substance Use: No Preferred Language: Uzbek Communication Ability: Effective Wheat Inspector Required: No Beliefs That Will Affect Care: None Current Living Situation: Spouse Current Living Situation Comment: lives in 2 story home with Feels Safe at Home: Yes Assistive Devices: None Review of Systems Review of Systems: All systems reviewed & are unremarkable except as noted in Subjective Physical Exam Physical Exam: General: Pt is a 74 y/o underweight F in discomfort in bed. VS: reviewed - remarkable Skin: Warm and dry; no lesions or ulcerations Respiratory: Pt with some expiratory wheezing. Chest expansion is full and symmetrical Cardio: RRR, no murmur Abdomen: Round, normoactive BS x4, mild tenderness to palpation MSK: FROM of extremities, no deformities Extremities: no edema Neuro: A&Ox4, cooperative Results & Data Results & Data Vital Signs (Past 12 Hours) Vital Signs Temp Pulse Resp BP Pulse Ox O2 Del Method 03/22/25 12:49 71 03/22/25 12:47 138/84 03/22/25 12:45 69 26 H 95 03/22/25 12:41 71 207/103 H 03/22/25 12:30 71 20 207/103 H 96 03/22/25 12:18 68 15 94 03/22/25 12:16 161/96 H 03/22/25 12:15 75 19 161/96 H 97 03/22/25 12:01 121/75 03/22/25 12:00 67 17 121/75 92 03/22/25 11:45 73 28 H 209/100 H 98 03/22/25 11:30 72 12 205/99 H 98 03/22/25 11:28 218/116 H 03/22/25 11:00 74 22 189/102 H 03/22/25 10:45 75 23 170/97 H 03/22/25 10:30 77 22 167/98 H 03/22/25 10:15 80 21 203/97 H 03/22/25 10:00 77 16 202/107 H 94 03/22/25 09:45 76 17 227/104 H 95 03/22/25 09:42 76 20 223/111 H 98 03/22/25 09:30 79 27 H 97 03/22/25 09:00 74 25 H 224/107 H 98 03/22/25 08:51 97.5 F L 75 20 229/117 H 98 Room Air 03/22/25 08:44 74 Laboratory Results 74 y/o F w/ PMHx of HLD, HTN, CAD, Queen esophagus who presents c/o L sided flank pain w/ N/V x3 days. #Lt Ureter Herniation | Hydronephrosis - CT 03/22 w/ herniation of L ureter into L sciatic foramen resulting in severe hydronephrosis -Urology: Cystoscopy w/ Lt Stent Placement -Post-op care per Urology #HTN - Elevated in ED, likely d/t pain and not morning meds -Continue home carvedilol and amlodipine #Weakness | frailty | BMI <19 | severe protein calorie malnutrition Pt has d/c appetite d/t pain -Encourage food intake -PT/OT eval and treat #Anemia - 02/28 Iron panel, B12, and B9 wnl; suspect secondary to malnutrition -Encourage diet and water intake -Encourage self-care #CAD | Thoracic aortic Aneurysm | Infrarenal Aortic Aneurysm - CT 03/22 aneurysms unchanged since 02/27/25 -Continue ASA #HLD -Continue home rosuvastatin #Insomnia -Continue home trazodone #Anxiety -Continue Paroxetine ER -Continue Xanax TID prn Dispo: Admit Med/Surg Obs VTE Proph: Lovenox PG Care Time/CCT Total # of Minutes Spent Total Time Spent with Patient: Total time spent is greater than 50% in coordination of care (as documented) at patient's floor/unit and/or counseling patient: Coding Level of Care Code 67512 INT INP/OBS CARE 2/55MIN"
[2025-03-22] MEDS ORDERED: ATROPINE SULFATE 0.1 MG/ML 10ML SYR IV PRN (13:29)
[2025-03-22] MEDS ORDERED: ONDANSETRON INJ 2 MG/ML 2 ML VIAL IV PRN (13:29)
--- NOTE | 2025-03-22 13:29 | Anesthesiology Consultation ---
Date of Service March 22, 2025 Assessment & Plan Chart Review Chart Review: Acceptable Risk for Surgery Consults Requested none ASA ASA3 Proposed Anesthesia Anesthesia Type: MAC Risk / Benefits Reviewed With: PT / POA / Parent / Guardian, Accepts Plan and Informed Consent Obtained History Surgery Operation Date: 03/22/25 11:35 Proposed Procedures p Cystoscopy, Left Stent Placement - Francisco Quiroz, DO Height/Weight Height: 5 ft 6 in Weight: 47.7 kg Allergies Allergy/AdvReac Type Severity Reaction Status Date / Time salicylates AdvReac Intermediate INTOLERANCE Verified 02/27/25 16:21 Medications Home Medications Medication Instructions Recorded Confirmed Last Taken albuterol sulfate 90 mcg/actuation 2 puff inhalation Q6H PRN 08/23/22 03/22/25 08/22/22 aerosol inhaler Shortness Of Breath Or Wheezing alprazolam 0.25 mg tablet 0.25 mg PO TID PRN anxiety 05/02/23 03/22/25 Unknown paroxetine HCl 12.5 mg 12.5 mg PO QAM 05/02/23 03/22/25 02/27/25 tablet,extended release 24 hr aspirin 81 mg chewable tablet 81 mg PO QAM 09/21/23 03/22/25 02/27/25 carvedilol 3.125 mg tablet 3.125 mg PO AMHS 09/21/23 03/22/25 02/27/25 08:00 docusate sodium 100 mg capsule 100 mg PO BID PRN Constipation #30 02/25/24 03/22/25 Unknown caps fluticasone propionate 50 2 spray NA DAILY PRN Nasal 02/25/24 03/22/25 Unknown mcg/actuation nasal congestion #16 grams spray,suspension amlodipine 5 mg tablet 5 mg PO QAM 12/19/24 03/22/25 Unknown rosuvastatin 20 mg tablet 20 mg PO QAM 12/19/24 03/22/25 02/27/25 acetaminophen 500 mg tablet 1,000 mg PO Q8H PAIN/FEVER 02/27/25 03/22/25 02/27/25 08:00 (Tylenol Extra Strength) trazodone 50 mg tablet 50 mg PO HS PRN Sleep 02/27/25 03/22/25 Unknown Active Medications Generic Name Dose Route Start Last Admin Trade Name Freq PRN Reason Stop Dose Admin Fentanyl Citrate 50 mcg 03/22/25 09:15 03/22/25 11:44 Fentanyl Citrate Pf 100 Mcg/2 Ml Vial IV 04/05/25 09:14 50 mcg Q15M PRN Administration Pain Sodium Chloride 1,000 mls @ 125 mls/hr 03/22/25 09:15 03/22/25 09:36 Nss IV 03/25/25 09:14 125 mls/hr .Q8H KEELY Administration Morphine Sulfate 2 mg 03/22/25 12:22 03/22/25 12:44 Morphine Sulfate 2 Mg/Ml Carp IV 04/05/25 12:21 2 mg Q1H PRN Administration Pain NPO Date Last Intake of Fluids: 03/21/25 Time Last Intake of Fluids: 09:00 Date Last Intake of Solids: 03/21/25 Time Last Intake of Solids: 23:00 Past Medical History Medical History Syncope COVID-19 Sigmoid diverticulitis Diverticulitis Uncontrolled hypertension Acute dehydration Weakness AAA (abdominal aortic aneurysm) Past Family History Family History Other Diabetes Past Surgical History Surgical History S/P tubal ligation Social History Smoking Status: Former smoker tobacco type: cigarettes Smoking cigarettes per day: 1/4 ppd Do You Dip or Chew Tobacco: No Hx Alcohol Use: No Hx Substance Use: No substance use type: does not use Physical Exam Vital Signs Last Vital Signs Temp 37.5 C 03/22/25 13:15 Pulse 66 03/22/25 13:15 Resp 20 03/22/25 13:15 BP 128/86 03/22/25 13:15 Pulse Ox 98 03/22/25 13:15 O2 Del Method Room Air 03/22/25 13:15 Constitutional no acute distress ENMT Mouth: + edentulous; no TMJ abnormality Thyromental Distance: < 3.5 Finger Breadths Mallampati Class: II Neck normal visual inspection Respiratory normal respiratory effort Cardiovascular Rate/Rhythm: regular rate Musculoskeletal Spine: normal cervical ROM Neurologic moves all extremities Psychiatric Orientation: alert and oriented x 3 Testing Laboratory Results 03/22/25 10:08 03/22/25 10:08 PT 10.9 Seconds (9.0-12.0) 03/22/25 10:08 INR 1.0 (0.9-1.1) 03/22/25 10:08 Urine Color Yellow 03/22/25 08:57 Urine Appearance Clear (Clear) 03/22/25 08:57 Urine pH 8.5 (4.5-7.5) H 03/22/25 08:57 Ur Specific [place] 1.010 (1.000-1.030) 03/22/25 08:57 Urine Protein 1+ (Negative) H 03/22/25 08:57 Urine Glucose (UA) Negative (Negative) 03/22/25 08:57 Urine Ketones Negative (Negative) 03/22/25 08:57 Urine Nitrite Negative (Negative) 03/22/25 08:57 Ur Leukocyte Esterase Negative (Negative) 03/22/25 08:57 Urine WBC (Auto) 0-5 /hpf (0-5) 03/22/25 08:57 Urine RBC (Auto) 0-2 /hpf (0-2) 03/22/25 08:57 U Hyaline Cast (Auto) 0-2 /lpf (0-2) 03/22/25 08:57 U Epithel Cells (Auto) 0-2 /hpf (0-2) 03/22/25 08:57 Urine Bacteria (Auto) None Seen (None Seen) 03/22/25 08:57
[2025-03-22] MEDS: DIATRIZOATE MEGLUMINE 30% 100ML VIAL INSTIL ONE (15:04)
[2025-03-22] MEDS ORDERED: PHENYLEPHRINE 100MCG/ML 5ML SYR ONE (15:04)
--- NOTE | 2025-03-22 15:26 | Operative Report ---
PG Post Operative Report Pre & Post Diagnosis Operation Date: 03/22/25 11:35 Pre-Op Diagnosis: Hydronephrosis of left kidney Post-Op Diagnosis: Hydronephrosis of left kidney I identified the patient and participated in the time-out.: Yes Procedure Operation Date: 03/22/25 11:35 Actual Procedures p Cystoscopy, Left Retrograde Pyelogram, Manipulation of Ureter/reduction of hernia, Left Stent Placement(Left) - Francisco Quiroz, Surgeon Francisco Quiroz, II, DO Router Operator Radial None Estimated Blood Loss 1 Findings Consistent with Post-Op Diagnosis Ureter with herniation within the deep pelvis with significant compression and obstruction. Attempt to reduce hernia manually externally was unsuccessful however the ureter did appear to displace slightly with deep palpation. Decompression of ureter ad ditionally improved but did not reduce the hernia. Significant manipulation utilizing Com[place]che catheter as well as wire was able to displace the ureter more significantly and with further manipulation did appear to reduce the hernia allowing a more neutral positioning of the ureter and easier advancement of the wire. Stent placed in good position after considerable manipulation and steady pressur e to advance the stent into the renal pelvis. Specimens None Drains 4.8 Togolese Multilength. 16 Togolese Martinez catheter Anesthesia Type MAC Complications none Disposition Disposition: Recovery Room Indications Patient with obstruction. Risks and benefits discussed at length. Description of Procedure Patient was consented and brought back to the operating room. Patient was placed under anesthesia in the supine position and moved to the dorsal lithotomy position. Patient was prepped and draped in the regular sterile fashion. A time out was completed. A 30degree Cystoscope was placed into the bladder and the entire bladder was examined. The UO's were identified. The UO was cannulized with a Com[place] catheter and a retrograde pyelogram was completed. The left ureter was found to be prolapsing into what appeared to be a herniated area posteriorly. Severe obstruction was noted. The mid proximal and renal pelvis was severely dilated. There was significant tortuosity due to the dilation. There were multiple areas of narrowing. Attempts to try to reduce the area with palpation around the piriformis muscle did appear to slightly displace the ureter but was unsuccessful at reducing it manually externally. A wire was then placed. Significant manipulation was necessary in order to advance the wire. The [place] catheter was utilized to try to aim the wire as it went around the severe narrowings within the area of prolapsed ureter. Extensive manipulation was necessary. During this additional attempts with both manual external as well as the internal manipulation were attempted to try to reduce the hernia. The wire was able to advance and over the wire the Donnie catheter was able to further advance. Urine was aspirated to try to decompress the ureter and renal pelvis. With approximately 50 cc of urine aspirated once again attempts to try to straighten and advance the wire and catheter were found to be extremely difficult. At this point the wire was able to be positioned within the renal pelvis. A 6 Togolese multilength stent was attempted to be placed. However in order to advance the stent the wire was also at the same time manipulated and retracted. Multiple attempts to advance past the mid and proximal ureter were attempted. At 1 point the wire did displace and the proximal end of the stent coiled. Further attempts to advance the stent failed. At this point the wire was fully removed and a grasper was utilized to grasp the end of the stent which had been only partially positioned and did not enter all the way to the renal pelvis. A wire was placed and the 6 Togolese stent was removed. At this point the wire was advanced into the renal pelvis. Utilizing the Com[place]che catheter with manipulation a second wire was then placed. Utilizing the Donnie catheter and the 2 wires and attempts to manipulate along the ureter the ureter appeared to displace from its prolapsed position into a more neutral lying position. In the AP direction there did still appear to be a significant irregular positioning/kinking however the lateral displacement had drastically improved. The Donnie catheter and the second wire were removed. The main wire remained in place. With the wire in place, a 4.8 Fr Double J stent was placed. Again significant manipulation was needed in order to advance the 4.8 Togolese stent. Due to the steady increasing pressure to advance the stent the very distal end of the stent became compressed. The proximal end was able to advance into the renal pelvis. And the wire was able to be removed deploying the stent. Due to the additional pressure necessary to advance the stent the very distal end did not appear to be well-functioning. The fenestrated areas along the stent appeared to be collapsed. At this point the grasper was used to pull the distal end with the proximal end being monitored the entire time. That and remained in the renal pelvis. The very distal end of approximately 1 cm was cut using a pair of heavy scissors. A coil still remained at the end of the stent and the wire was once again utilized to place the distal end of the stent into the bladder. The stent positioning was assessed and it was confirmed with fluoroscopy. Contrast was seen to be draining slowly from the stent itself. The stent positioning was further manipulated to allow good placement within the bladder utilizing the grasper. The Donnie catheter was selected again and a retrograde pyelogram was completed next to the stent. There was significant kinking still in the mid to distal ureter but appeared to be more in the AP direction as opposed to laterally prolapsing through what appeared to be a hernia. Contrast easily advanced. A wire was then attempted and this also easily advanced going into the renal pelvis and a fairly straight and easy to advanced fashion. The wire and Donnie catheter were then removed. With the stent in place, the bladder was emptied. The scope was removed. A significant amount of drainage was being appreciated and due to the likely diuresis from the severe obstruction it was decided to place a catheter. A 16 Togolese Martinez catheter was placed and the balloon elevated. This was set to drainage. The patient was cleaned, aroused from anesthesia, and transferred to the pacu in stable condition having tolerated the procedure well with no complications. I was present and participated in all aspects of the procedure. The patient will be monitored in the PACU until transferred. Will plan to maintain catheter for approximately 1 to 2 days to allow diuresis and drainage. Will likely need repeat imaging at 1 point to reassess the ureter positioning as well as the stent positioning. May need to consider options and alternatives for management of the hernia/obstruction/prolapse as this may become a reoccurring issue. The stent will hopefully remain in a satisfactory enough position to not allow further prolapse of the ureter once again through that channel. Additionally the patient in general should allow drainage directly from the kidney to the bladder. Which should decompress the renal pelvis. Will monitor output. Patient will be admitted due to hypertensive urgency. Will plan to monitor I attest to the content of the Intraoperative Record and any orders documented therein. Any exceptions are noted below.
--- NOTE | 2025-03-22 15:38 | Anesthesiology Progress Note ---
Date of Service March 22, 2025 Anesthesia Post Procedure Vital Signs Vital Signs: Temp Pulse Pulse Resp BP BP Pulse Ox 03/22/25 15:35 66 24 148/86 H 97 03/22/25 15:25 69 18 135/73 98 03/22/25 15:15 36.7 C 68 14 135/58 L 100 03/22/25 13:15 37.5 C 66 20 128/86 98 03/22/25 12:56 69 148/79 H 03/22/25 12:49 71 03/22/25 12:47 138/84 03/22/25 12:45 69 26 H 95 03/22/25 12:41 71 207/103 H 03/22/25 12:30 71 20 207/103 H 96 03/22/25 12:18 68 15 94 03/22/25 12:16 161/96 H 03/22/25 12:15 75 19 161/96 H 97 03/22/25 12:01 121/75 03/22/25 12:00 67 17 121/75 92 03/22/25 11:45 73 28 H 209/100 H 98 03/22/25 11:30 72 12 205/99 H 98 03/22/25 11:28 218/116 H 03/22/25 11:00 74 22 189/102 H 03/22/25 10:45 75 23 170/97 H 03/22/25 10:30 77 22 167/98 H 03/22/25 10:15 80 21 203/97 H 03/22/25 10:00 77 16 202/107 H 94 03/22/25 09:45 76 17 227/104 H 95 03/22/25 09:42 76 20 223/111 H 98 03/22/25 09:30 79 27 H 97 03/22/25 09:00 74 25 H 224/107 H 98 03/22/25 08:51 36.4 C L 75 20 229/117 H 98 03/22/25 08:44 74 O2 Del Method 03/22/25 15:35 Room Air 03/22/25 15:25 Room Air 03/22/25 15:15 Room Air 03/22/25 13:15 Room Air 03/22/25 12:56 03/22/25 12:49 03/22/25 12:47 03/22/25 12:45 03/22/25 12:41 03/22/25 12:30 03/22/25 12:18 03/22/25 12:16 03/22/25 12:15 03/22/25 12:01 03/22/25 12:00 03/22/25 11:45 03/22/25 11:30 03/22/25 11:28 03/22/25 11:00 03/22/25 10:45 03/22/25 10:30 03/22/25 10:15 03/22/25 10:00 03/22/25 09:45 03/22/25 09:42 03/22/25 09:30 03/22/25 09:00 03/22/25 08:51 Room Air 03/22/25 08:44 Pain Intensity Left Flank: Pain Intensity: 5 Transfer of Care Handoff Completed per policy Notes Mental Status: alert / awake / arousable Patient Amnestic to Procedure: Yes Nausea / Vomiting: adequately controlled Pain: adequately controlled Airway Patency, RR, SpO2: stable & adequate BP & HR: stable & adequate Hydration State: stable & adequate Anesthetic Complications: no major complications apparent
--- NOTE | 2025-03-22 15:41 | Fluoroscopy Report ---
FL retrograde includes kub CLINICAL HISTORY: LEFT STENT COMPARISON STUDY: None FLUOROSCOPY TIME: 1226 seconds FLUOROSCOPY IMAGES: 28 EXPOSURE DOSE: 155 mGy FINDINGS: Fluoroscopy was provided for urologic procedure. IMPRESSION: Intraoperative fluoroscopy. ACT 112: Negative or not required by law. Electronically signed by: Jimbo Rojo M.D. 03/22/2025 3:40 PM
[2025-03-22] MEDS ORDERED: ALBUTEROL HFA 8 GM INHALER INH PRN (17:06)
[2025-03-22] MEDS ORDERED: MELATONIN 3 MG TAB PO PRN (17:06)
[2025-03-22] MEDS: ONDANSETRON 4 MG OD TAB PO PRN (17:22)
[2025-03-22] MEDS: ACETAMINOPHEN 325 MG TAB PO PRN (17:22)
[2025-03-22] MEDS: FAMOTIDINE 20MG IV PUSH 20 MG/5 ML SYR IV STA (17:27)
[2025-03-22] MEDS: ENOXAPARIN INJ 40 MG/0.4 ML SYR SQ SCH (19:41)
--- NOTE | 2025-03-23 08:14 | Hospitalist Progress Note ---
"Date of Service March 23, 2025 Assessment & Plan (1) Hydronephrosis of left kidney: (2) Hypertension: (3) Underweight (BMI < 18.5): (4) Frailty syndrome in geriatric patient: Plan 74 y/o F w/ PMHx of HLD, HTN, CAD, Queen esophagus who presents c/o L sided flank pain w/ N/V x3 days. #Lt Ureter Herniation | Hydronephrosis - CT 03/22 w/ herniation of L ureter into L sciatic foramen resulting in severe hydronephrosis -Urology: Cystoscopy w/ Lt Stent Placement -Post-op care per Urology #HTN - Elevated in ED, likely d/t pain and not morning meds -Continue home carvedilol and amlodipine #Frailty | BMI <19 | severe protein calorie malnutrition Pt has d/c appetite d/t pain -Encourage food intake -PT/OT eval and treat #Anemia - 02/28 Iron panel, B12, and B9 wnl; suspect secondary to malnutrition -Encourage diet and water intake -Encourage self-care #CAD | Thoracic aortic Aneurysm | Infrarenal Aortic Aneurysm - CT 03/22 aneurysms unchanged since 02/27/25 -Continue ASA #HLD -Continue home rosuvastatin #Insomnia - no acute concerns -Continue home trazodone #GERD w/ Barretts -no acute concerns -Continue Pantoprazole BID #Anxiety - Pt states not well controlled; nurse states pt had anxiety attack -Continue Paroxetine ER -Hydroxyzine TID prn -FIRST LINE -Continue Xanax TID prn Dispo: Admit Med/Surg Obs VTE Proph: Lovenox Admission and Anticipated Discharge Date Admission Date: March 22, 2025 Subjective Pt was laying in bed today, anxious. Pt notes that she remains uncomfortable d/t the Martinez but notes that her pain overall has greatly decreased. Pt states that she has been feeling very anxious since arriving to the hospital. It was noted by her nurse that this am (03/23) the pt had a panic attack. Pt states that this happens occasionally outside of the hospital and that she will often take a xanax for it. She notes that she isn't a big fan of xanax and would prefer a different agent. Pt denies sore throat, cough, congestion, H/A, abd pain, N/V/D. Review of Systems Review of Systems: All systems reviewed & are unremarkable except as noted in Subjective Physical Exam Physical Exam: General: Pt is a 74 y/o underweight F in discomfort in bed. VS: reviewed - remarkable Skin: Warm and dry; no lesions or ulcerations Respiratory: Pt with some expiratory wheezing. Chest expansion is full and symmetrical Cardio: RRR, no murmur Abdomen: Round, normoactive BS x4, mild tenderness to palpation MSK: FROM of extremities, no deformities Extremities: no edema : Martinez Catheter in place, Urine is red in color Neuro: A&Ox4, cooperative Results & Data Results & Data Vital Signs (Past 12 Hours) Vital Signs Temp Pulse Resp BP BP Pulse Ox O2 Del Method 03/23/25 07:52 98.2 F 69 16 122/81 98 Room Air 03/23/25 03:22 98.1 F 80 16 109/63 93 Room Air 03/22/25 23:10 97.9 F 78 16 111/64 93 Room Air Laboratory Results Reviewed: CBC, CMP, Procal PG Care Time/CCT Total # of Minutes Spent Total Time Spent with Patient: Total time spent is greater than 50% in coordination of care (as documented) at patient's floor/unit and/or counseling patient: Coding Level of Care Code 21713 SUB INP/OBS CARE 2/35MIN Diagnoses Hydronephrosis of left kidney N13.30 Hypertension I10 Underweight (BMI < 18.5) R63.6; Z68.1 Frailty syndrome in geriatric patient R54"
--- NOTE | 2025-03-23 08:16 | Electrocardiogram Report ---
Test Reason : Blood Pressure : */* mmHG Vent. Rate : 76 BPM Atrial Rate : 76 BPM P-R Int : 160 ms QRS Dur : 72 ms QT Int : 362 ms P-R-T Axes : 75 38 77 degrees QTcB Int : 407 ms Normal sinus rhythm Possible Left atrial enlargement Septal infarct (cited on or before 03-Jul-2024) Abnormal ECG When compared with ECG of 27-Feb-2025 13:41, No significant change Confirmed by Bob Daniels ([id number]) on 03/23/2025 8:15:39 AM Referred By: REFERRED SELF Confirmed By: Bob Daniels
[2025-03-23] MEDS: ASPIRIN 81 MG CHEW PO SCH (10:00)
[2025-03-23] MEDS: ROSUVASTATIN CALCIUM 20 MG TAB PO SCH (10:01)
[2025-03-23] MEDS: PARoxetine HCl CONTROLLED REL 12.5 MG TABCR PO SCH (10:01)
[2025-03-23 11:25] LABS: Anion Gap 6.0 (3-11); Blood Urea Nitrogen 24.0 mg/dl (6-23); Calcium 8.3 mg/dl (8.6-10.3); Carbon Dioxide 28.0 mmol/L (21-32); Chloride 105.0 mmol/L (98-107); Creatinine Clr Calc Pharmacy 32.7 ml/min; Glucose 148.0 mg/dl (70-99(Fasting)); Potassium 3.8 mmol/L (3.5-5.1); Sodium 139.0 mmol/L (136-145)
[2025-03-23 11:29] LABS: Hematocrit (blood only) 29.3 % (37.0-47.0); Hemoglobin 9.4 g/dL (12.0-16.0); Immature Granulocytes # (auto) 0.02 K/uL (0.01-0.20); Immature Granulocytes % (auto) 0.3 %; Mean Corpuscular Hemoglobin 31.8 pg (25.0-34.0); Mean Corpuscular Volume 99.0 fL (80.0-100.0); Platelet Count 120 K/uL (130-400); RDW Standard Deviation 49.5 fL (36.4-46.3); Red Blood Count 2.96 M/uL (4.20-5.40); White Blood Count 5.80 K/ul (4.8-10.8)
--- NOTE | 2025-03-23 13:19 | Urology Progress Note ---
Date of Service March 23, 2025 Assessment & Plan (1) Hydronephrosis of left kidney: (2) Hypertension: (3) Nausea & vomiting: (4) Acute left flank pain: (5) Nausea & vomiting: (6) Moderate protein-calorie malnutrition: (7) Closed fracture of shoulder: (8) Carotid artery disease: Plan Postop day 1 status post stent placement secondary to herniation and strangulation with severe obstruction of the left ureter. Appeared to have entered into the left sciatic foramen with severe obstructive issues developing. Significant manipulation in order to bypassed the area of obstruction and significant difficulty and placement secondary to the unusual positioning of the ureter and difficulty bypassing the areas of obstruction. With manipulation the ureter was able to be at least partially reduced from the hernia which did allow much more reasonable manipulation and mobility and did eventually facilitate the placement of a 4.8 [place] stent. Patient had significant diuresis afterwards. A catheter was left in order to allow diuresis without need for severe urgency and frequency especially with the patient's significant illness. Patient was having severe hypertensive crisis/event with presentation was also having severe renal colic. These issues have largely resolved. Patient does have some discomfort in the pelvic region likely from the stent placement. Reviewed extensively with patient and family today. Discussed rare cases of herniation of the ureter. Discussed issues with obstruction. Did discuss potential issues with the ureter in the future and discussed need to maintain stent at least for now in order to facilitate decompression of the kidney as well as to allow time for healing and possible reassessment. Reviewed options moving forward. Will plan to monitor. Will plan to maintain stent for at least 2 to 4 weeks. Will plan to have patient return to office to discuss potential next options with management including potential options for reconstruction or repair of herniation versus observation versus maintenance of stent for decompression of the kidney. Can likely remove catheter tomorrow and allow patient to go back to voiding on a regular schedule. May have continued diuresis due to the degree of obstruction. Will need to monitor. Will have patient return for follow-up and discussion of possible options moving forward. Admission and Anticipated Discharge Date Admission Date: March 22, 2025 Subjective Postop from stent placement for obstruction issues. Patient was discovered to have severe hydronephrosis developed on the left. Found to have ureter with what appeared to be herniation possibly through the sciatic foramen. A severe obstruction was noted. Access into and out of the area of narrowing with the significant entrapment and strangulation of a portion of the ureter. Extensive manipulation was necessary in order to bypassed the area of obstruction. Decompression of the kidney had also been attempted due to the severe swelling and hydronephrosis. Ureter was found to be severely dilated and redundant with tortuosity all proximal to the area of strangulation. A stent was able to be placed after multiple attempts. A catheter was left due to the significant diuresis. Patient has been tolerating well. Has noticed some frequency and urgency. Has not had severe pain in the back and flank. Does have occasional burning and irritation. No severe episodes or major changes. No new nausea or vomiting. Had tolerated anesthesia without major problems Review of Systems Review of Systems: All systems reviewed & are unremarkable except as noted in HPI & below Physical Exam Physical Exam: General: Alert in no acute distress. Cachectic. Advanced age. HEENT: Normocephalic Atraumatic. Inspection normal. Cranial Nerves 2-12 Grossly intact. Normal inspection of face. Normal inspection of neck. Psychologic: Normal affect. Respiratory: Nonlabored. No use of accessory muscles. No tachypnea or dyspnea. Cardiovascular: No tachycardia Skin: Burrows and Dry. No rashes or visible lesions. Extremities/Lymphatics: No edema Abdomen: Soft Non-distended. No rebound or guarding. : Catheter in place draining light red/pink urine. Significant diuresis. Results & Data Vital Signs (Past 12 Hours) Vital Signs Temp Pulse Resp BP BP Pulse Ox O2 Del Method 03/23/25 07:52 36.8 C 69 16 122/81 98 Room Air 03/23/25 03:22 36.7 C 80 16 109/63 93 Room Air PG Care Time/CCT Total # of Minutes Spent Total Time Spent with Patient: Total time spent is greater than 50% in coordination of care (as documented) at patient's floor/unit and/or counseling patient: Coding Level of Care Code 73478 SUB INP/OBS CARE 3/50MIN Diagnoses Hydronephrosis of left kidney N13.30 Hypertension I10 Nausea & vomiting R11.2 Acute left flank pain R10.A2 Moderate protein-calorie malnutrition E44.0 Closed fracture of shoulder S42.92XA Encounter type: initial encounter Laterality: left Carotid artery disease I77.9 (6) Closed fracture of shoulder Encounter type: initial encounter Laterality: left Qualified Code(s): S42.92XA - Fracture of left shoulder girdle, part unspecified, initial encounter for closed fracture
[2025-03-23] MEDS: PHENAZOPYRIDINE HCL 100 MG TAB PO PRN (14:36)
[2025-03-23] MEDS: DOCUSATE SODIUM 100 MG CAP PO PRN (21:05)
[2025-03-23] MEDS: FLUTICASONE PROPIONATE NA SPR 16 GM BTL PRN (21:56)
[2025-03-24 05:59] LABS: Hematocrit (blood only) 28.7 % (37.0-47.0); Hemoglobin 9.3 g/dL (12.0-16.0); Immature Granulocytes # (auto) 0.01 K/uL (0.01-0.20); Immature Granulocytes % (auto) 0.2 %; Mean Corpuscular Hemoglobin 31.6 pg (25.0-34.0); Mean Corpuscular Volume 97.6 fL (80.0-100.0); Platelet Count 123 K/uL (130-400); RDW Standard Deviation 47.8 fL (36.4-46.3); Red Blood Count 2.94 M/uL (4.20-5.40); White Blood Count 5.10 K/ul (4.8-10.8)
[2025-03-24 06:14] LABS: Alanine Aminotransferase 22.0 U/L (7-52); Albumin Globulin Ratio 1.5 (0.9-2); Albumin Level 3.2 gm/dl (3.4-5.0); Alkaline Phosphatase 61.0 U/L (34-104); Anion Gap 4.0 (3-11); Bilirubin,Total 0.3 mg/dl (0.2-1.0); Blood Urea Nitrogen 23.0 mg/dl (6-23); Calcium 8.3 mg/dl (8.6-10.3); Carbon Dioxide 28.0 mmol/L (21-32); Chloride 111.0 mmol/L (98-107); Creatinine Clr Calc Pharmacy 41.6 ml/min; Globulin 2.1 gm/dl (2.5-4.0); Glucose 91.0 mg/dl (70-99(Fasting)); Potassium 3.9 mmol/L (3.5-5.1); Sodium 143.0 mmol/L (136-145); Total Protein 5.3 gm/dl (6.0-8.3)
[2025-03-24 06:28] LABS: Thyroid Stimulating Hormone 0.674 uIu/ml (0.300-4.500)
--- NOTE | 2025-03-24 09:42 | Hospitalist Progress Note ---
"Date of Service March 24, 2025 Assessment & Plan (1) Hydronephrosis of left kidney: (2) Hypertension: (3) Underweight (BMI < 18.5): (4) Frailty syndrome in geriatric patient: Plan 74 y/o F w/ PMHx of HLD, HTN, CAD, Queen esophagus who presents c/o L sided flank pain w/ N/V x3 days. #Lt Ureter Herniation | Hydronephrosis - CT 03/22 w/ herniation of L ureter into L sciatic foramen resulting in severe hydronephrosis -Urology: Cystoscopy w/ Lt Stent Placement on 03/22 -Post-op care per Urology -Tylenol for mild/mod pain and oxycodone for severe pain #HTN - Pt's BP elevations likely d/t pain, BP improves w/ pain management -Continue home carvedilol and amlodipine #Frailty | BMI <19 | severe protein calorie malnutrition Pt has d/c appetite d/t pain -Encourage food intake -PT/OT eval and treat #Anemia - 02/28 Iron panel, B12, and B9 wnl; suspect secondary to malnutrition -Encourage diet and water intake -Encourage self-care #CAD | Thoracic aortic Aneurysm | Infrarenal Aortic Aneurysm - CT 03/22 aneurysms unchanged since 02/27/25 -Continue ASA #HLD -Continue home rosuvastatin #Insomnia - no acute concerns -Continue home trazodone #GERD w/ Barretts -no acute concerns -Continue Pantoprazole BID #Anxiety - Pt states improved with Hydroxyzine; nurse states pt had anxiety attack 03/23 -Continue Paroxetine ER -Hydroxyzine TID prn -FIRST LINE -Continue Xanax TID prn Dispo: Admit Med/Surg - Awaiting Urology input & safe dispo VTE Proph: Lovenox Admission and Anticipated Discharge Date Admission Date: March 22, 2025 Subjective Pt was laying in bed today, asleep. Pt states that earlier in the morning she was having some pretty extreme pain but notes it has resolved with pain pills. Pt states that she still feels much better than she did upon admission. Pt states that her appetite is still small, but slowly improving. Pt admits to mild abdominal tenderness this am Pt states that she has not yet had a bowel movement since admission to the hospital on 03/22. Review of Systems Review of Systems: All systems reviewed & are unremarkable except as noted in Subjective Physical Exam Physical Exam: General: Pt is a 74 y/o underweight F in discomfort in bed. VS: reviewed - remarkable Skin: Warm and dry; no lesions or ulcerations Respiratory: Pt with some expiratory wheezing. Chest expansion is full and symmetrical Cardio: RRR, no murmur Abdomen: Round, normoactive BS x4, mild tenderness to palpation MSK: FROM of extremities, no deformities Extremities: no edema Neuro: A&Ox4, cooperative Results & Data Results & Data Vital Signs (Past 12 Hours) Vital Signs Temp Pulse Resp BP BP Pulse Ox O2 Del Method 03/24/25 07:21 98.6 F 76 14 184/105 H 213/105 H 93 Room Air 03/23/25 23:12 98.6 F 77 16 115/71 91 Room Air 03/23/25 20:27 98.2 F 86 16 160/78 H 92 Room Air 03/23/25 20:23 98.2 F 86 16 160/78 H 92 Room Air Laboratory Results Reviewed: CBC, CMP, CRP, Procal, TSH, PG Care Time/CCT Total # of Minutes Spent Total Time Spent with Patient: Total time spent is greater than 50% in coordination of care (as documented) at patient's floor/unit and/or counseling patient: Coding Level of Care Code 23815 SUB INP/OBS CARE 2/35MIN Diagnoses Hydronephrosis of left kidney N13.30 Hypertension I10 Underweight (BMI < 18.5) R63.6; Z68.1 Frailty syndrome in geriatric patient R54"
[2025-03-24] MEDS: hydrALAZINE 10 MG TAB PO ONE (17:07)
--- NOTE | 2025-03-25 11:29 | Hospitalist Progress Note ---
Date of Service March 25, 2025 Assessment & Plan (1) Hydronephrosis of left kidney: (2) Hypertension: (3) Underweight (BMI < 18.5): (4) Frailty syndrome in geriatric patient: Plan 74 y/o F w/ PMHx of HLD, HTN, CAD, Queen esophagus who presented with left- sided flank pain x 3 days with associated nausea and vomiting. CT A/P on admission revealed herniation of left ureter into the left sciatic foramen resulting in severe hydronephrosis. She was admitted for management of such. #Left Ureter Herniation | Hydronephrosis - Urology consulted - s/p Cystoscopy with left stent placement on 03/[address] Quiroz - Maintain stent for at least 2-4 weeks. Follow-up with urology outpatient - Martinez catheter removed 03/25 - Tylenol PRN mild/mod pain, oxycodone 5 mg Q4h PRN severe pain #HTN - Continue home carvedilol and amlodipine #Anemia | Severe protein calorie malnutrition | Frailty | BMI <19 - Iron panel, ferritin, B12, and folate WNL; suspect secondary to malnutrition - Encourage oral intake - PT/OT consulted and recommending SNF #CAD | Thoracic aortic Aneurysm | Infrarenal Aortic Aneurysm - CT on admission with aneurysms unchanged since 02/27/25 - Continue ASA #HLD - Continue home rosuvastatin #Insomnia - Continue home trazodone #GERD w/ Barretts - Continue Pantoprazole BID #Anxiety - Pt states improved with Hydroxyzine; nurse states pt had anxiety attack 03/23 - Continue Paroxetine 12.5 mg daily - Hydroxyzine 10 mg TID prn - FIRST LINE - Xanax 0.25 mg TID prn - second line VTE Proph: Lovenox Dispo: Medically stable. Awaiting SNF placement Removed Martinez catheter Discussed discharge planning with case management Admission and Anticipated Discharge Date Admission Date: March 24, 2025 Subjective Patient seen and evaluated at bedside. She reports "I am anxious" but cannot elaborate as to what she is feeling anxious about. She reports feeling tired overall. She notes she did not sleep well overnight. She is well tolerating her diet. We discussed therapies recommendation of SNF, she is agreeable to rehab on discharge. We discussed removing her Martinez catheter per urology's recommendation. She denies any additional complaints or concerns at this time. Physical Exam Physical Exam: General: No acute distress, nondiaphoretic. Frail woman. Appears fatigued. Skin: Warm, dry. No rashes or peripheral edema noted. Cardiac: Regular rate and rhythm. Systolic murmur noted. Pulm: Clear to auscultation bilaterally without wheezes, rales or rhonchi. Normal respiratory effort. 93% on room air. Abdominal: Soft, nontender, nondistended. Bowel sounds present. : Martinez catheter draining gross hematuria. MSK: Left upper extremity in sling. Neuro: A&O x3. No focal neurological deficits. Results & Data Results & Data Vital Signs (Past 12 Hours) Vital Signs Temp Pulse Resp BP Pulse Ox O2 Del Method 03/25/25 07:49 98.8 F 76 16 150/72 H 93 Room Air PG Care Time/CCT Total # of Minutes Spent Total Time Spent with Patient: Total time spent is greater than 50% in coordination of care (as documented) at patient's floor/unit and/or counseling patient: Coding Level of Care Code 69419 SUB INP/OBS CARE 3/50MIN Diagnoses Hydronephrosis of left kidney N13.30 Hypertension I10 Underweight (BMI < 18.5) R63.6; Z68.1 Frailty syndrome in geriatric patient R54
[2025-03-25 20:33] VITALS: RESP 16; O2SAT 93
[2025-03-26 07:41] VITALS: BP 185/74; PULSE 71; TEMP 98.8
[2025-03-26] MEDS: POLYETHYLENE (MIRALAX) 17 GM PACK PO PRN (11:43)
--- NOTE | 2025-03-26 18:58 | Discharge Summary ---
"Discharge Summary Date of Service March 26, 2025 Principal Dx & Hospital Course #1 = Principal Diagnosis (1) Hydronephrosis of left kidney: (2) Hypertension: (3) Underweight (BMI < 18.5): (4) Frailty syndrome in geriatric patient: Plan 74 y/o F w/ PMHx of HLD, HTN, CAD, Queen esophagus who presented with left- sided flank pain x 3 days with associated nausea and vomiting. CT A/P on admission revealed herniation of left ureter into the left sciatic foramen resulting in severe hydronephrosis. She was admitted for management of such. #Left Ureter Herniation | Hydronephrosis - Urology consulted - s/p Cystoscopy with left stent placement on 03/[address] Quiroz - Maintain stent for at least 2-4 weeks. Follow-up with urology outpatient - Martinez catheter removed 03/25 - voiding without difficulty - Tylenol PRN mild/mod pain, oxycodone 5 mg Q4h PRN severe pain #HTN - Continue home carvedilol and amlodipine #Anemia | Severe protein calorie malnutrition | Frailty | BMI <19 - Iron panel, ferritin, B12, and folate WNL; suspect secondary to malnutrition - Encourage oral intake - PT/OT consulted and recommended SNF #CAD | Thoracic aortic Aneurysm | Infrarenal Aortic Aneurysm - CT on admission with aneurysms unchanged since 02/27/25 - Continue ASA #HLD - Continue home rosuvastatin #Insomnia - Continue home trazodone #GERD w/ Barretts - Continue Pantoprazole BID #Anxiety - Pt states improved with Hydroxyzine; nurse states pt had anxiety attack 03/23 - Continue Paroxetine 12.5 mg daily - Home Xanax 0.25 mg TID prn VTE Proph: Lovenox Dispo: [facility] 03/[facility] Notes For Next Care Provider Follow-up with urology outpatient for further stent management Medication Changes From Visit MiraLAX as needed for constipation Oxycodone 5 mg every 4 hours as needed for severe pain Admission HPI Per Admitting Provider 74 y/o F w/ PMHx of HLD, HTN, CAD, Queen esophagus who presents c/o L sided flank pain w/ N/V x3 days. Pt states that her pain started 3 days ago in her L side and progressively worsened over the course of 3 days. Pt admits to nausea and vomiting over the past 3 days and notes that her appetite has been markedly decreased since the onset of pain. Pt states that she feels as thought she has been urinating more frequently since the onset of pain. Pt states that her pain was not relieved with positional changes and denies trying anything else to alleviate her symptoms. Pt denies H/A, cough, SOB, CP, palpitations, and Diarrhea. Pt was transported from [facility] to the ED via EMS. While in the ED, the patient received a CT scan that demonstrated herniation of the Lt ureter into the left sciatic foramen resulting in severe left hydroureteronephrosis with delayed nephrographic and extensive perinephric/left upper quadrant fluid. The ED physician stated that she contacted Urology and that they recommended stent placement. Pt is being admitted for further evaluation and care. Recent D/C on 03/08 Discharge Exam General: No acute distress, nondiaphoretic. Frail woman. Appears fatigued. Skin: Warm, dry. No rashes or peripheral edema noted. Cardiac: Regular rate and rhythm. Systolic murmur noted. Pulm: Clear to auscultation bilaterally without wheezes, rales or rhonchi. Normal respiratory effort. 93% on room air. Abdominal: Soft, nontender, nondistended. Bowel sounds present. MSK: Left upper extremity in sling. Neuro: A&O x3. No focal neurological deficits. Discharge Plan Discharge Items Patient Disposition: Transfer [facility] Fac Reason For Visit: LT URETERAL HERNIATION W/ HYDRONEPHROSIS Discharge Diagnosis: Left ureter herniation with hydronephrosis s/p cystoscopy with left-sided stent placement Condition on Discharge: Fair Activity: Resume your previous activity Non-emergency contact: Primary Care Provider and Urologist Call non-emergency contact if: you have any medication questions, your symptoms worsen, your pain is not controlled and you have a fever Follow-up/Referrals: Francisco Quiroz DO [Physician] - (Follow-up in 2 weeks) Adriel Whitaker MD [Outside Practitioners] - (Follow-up in 1-2 weeks) Diet: Regular Addtl Attending Provider Instructions: Faith, You were admitted to the hospital after a workup for your left-sided flank pain revealed herniation of your left ureter and severe hydronephrosis (swelling of your kidney). You were taken to the OR with the urology team and had a cystoscopy with left stent placement on 03/[address] Quiroz. You tolerated this procedure well. Physical therapy and Occupational Therapy evaluated you and recommended rehab on discharge. [facility]. Upon discharge from the hospital: * Use Tylenol as needed for mild/moderate pain. * Use oxycodone 5 mg every 4 hours as needed for severe pain. Do not drive or operate heavy machinery while taking oxycodone as it is a narcotic pain medication. * Follow-up with urology outpatient as directed. * Follow-up with your PCP in 1-2 weeks. While you have a ureteral stent in place: Some discomfort is normal. Certain movements may trigger pain or a feeling that you need to urinate. You may also feel mild soreness or pressure before or during urination. These symptoms should go away a few days after the stent is removed. Your urine may be slightly pink or red. This is due to bleeding caused by minor irritation from the stent. This may happen on and off while you have the stent, it is not harmful and is to be expected. Medication to help minimize discomfort or bladder spasms, or to prevent infection may be prescribed. Take this as directed. Drink plenty of fluids to help flush out your urinary tract. If you go home with a catheter, wash with soapy water and a fresh washcloth twice daily. We recommend mild bar soap such as Dial or Dove. When to call [facility] at [phone]: Your urine contains heavy blood clots You are constantly leaking urine Fever of 101F or higher, chills, nausea, or vomiting Your pain is not relieved with medication The end of the stent comes out of your urethra It was a pleasure taking care of you while you were in the hospital! Pending Studies at Discharge: No Stand-Alone Forms: My [employer] Skilled Items Patient informed of condition?: Yes DNR: No (conditional code) Discharge Level of Care: Skilled Communicable Disease: No Discharge Prognosis: Stable Lines: None Urinary Catheter: No Medications and DC Order Prescriptions: New oxycodone 5 mg Tablet 5 mg PO Q4H PRN (Reason: pain) Qty: 10 0RF polyethylene glycol 3350 [Miralax] 17 gram Powder In Packet 17 g PO DAILY PRN (Reason: constipation) Qty: 30 0RF Continued albuterol sulfate 90 mcg/actuation HFA aerosol inhaler 2 puff INHALATION Q6H PRN (Reason: Shortness Of Breath Or Wheezing) alprazolam 0.25 mg tablet 0.25 mg PO TID PRN (Reason: anxiety ) paroxetine HCl 12.5 mg tablet extended release 24 hr 12.5 mg PO QAM carvedilol 3.125 mg tablet 3.125 mg PO AMHS aspirin 81 mg Tablet,Chewable 81 mg PO QAM fluticasone propionate 50 mcg/actuation Tuttle,Suspension 2 spray NA DAILY PRN (Reason: Nasal congestion) Qty: 16 0RF docusate sodium 100 mg Capsule 100 mg PO BID PRN (Reason: Constipation) Qty: 30 0RF rosuvastatin 20 mg tablet 20 mg PO QAM amlodipine 5 mg tablet 5 mg PO QAM Hold Instructions: Resume on 03/05/25. Discuss resuming with PCP Rx Instructions: 02/17/25 : THIS MED CURRENTLY ON HOLD. PT DID NOT MENTION THIS TODAY, 02/27/25 trazodone 50 mg Tablet 50 mg PO HS PRN (Reason: Sleep) acetaminophen [Tylenol Extra Strength] 500 mg tablet 1,000 mg PO Q8H Rx Instructions: STARTED 02/15/25 FOR 14 DAYS. THEN RETURN TO 500 MG Q4H PRN. Discharge Orders: Discharge Order (Routine); Ordered 03/26/25 Ordered By: Yudelka Hendrickson Admission Data Admit Date/Time: 03/24/25 15:51 Attending Provider: Yudelka Mendoza Admit Provider: Gurpreet Tee Primary Care Provider: Gurpreet Lo III Other Providers: Gurpreet Tee; Francisco Quiroz; [facility] Other Interventions: Discharge Summary Assessment (RN) Last Done: 03/26/25 14:41 Hospital Stay Data Consultations 03/22/25 12:53 ED Decision to Admit Stat 03/22/25 13:17 Consult Urology Stat Procedures Performed Operation Date: 03/22/25 11:35 Actual Procedures p Cystoscopy, Left Retrograde Pyelogram, Left Stent Placement(Left) - Francisco Quiroz DO Diagnostic Imagining Performed Retrograde Pyelogram 03/22/25 00:00 FL retrograde includes kub CLINICAL HISTORY: LEFT STENT COMPARISON STUDY: None FLUOROSCOPY TIME: 1226 seconds FLUOROSCOPY IMAGES: 28 EXPOSURE DOSE: 155 mGy FINDINGS: Fluoroscopy was provided for urologic procedure. IMPRESSION: Intraoperative fluoroscopy. ACT 112: Negative or not required by law. Electronically signed by: Jimbo Rojo M.D. 03/22/2025 3:40 PM Abdomen/Pelvis CT 03/22/25 09:15 CT SCAN OF THE ABDOMEN AND PELVIS WITH IV CONTRAST CLINICAL HISTORY: Left flank pain. COMPARISON STUDY: CT of the abdomen and pelvis February 27, 2025. KUB March 01, 2025. TECHNIQUE: Following the IV administration of 94 cc of Optiray 320, CT scan of the abdomen and pelvis is performed from the lung bases to the proximal femora. Images are reviewed in the axial, sagittal, and coronal planes. IV contrast was administered without complication. A dose lowering technique was utilized adhering to the principles of ALARA. CT DOSE: 458.88 mGy.cm FINDINGS: There is a small left pleural effusion. Note is again made of a 4.6 cm aneurysm of the distal descending thoracic aorta which contains extensive plaque. This is unchanged since CT of February 27, 2025. There is extensive aortoiliac atherosclerotic plaque as well as well as a stable 3.3 cm infrarenal abdominal aortic aneurysm. No evidence for rupture. There is no pneumatosis, free air or portal venous gas. There are no suspicious hepatic lesions. A few small cysts are present. Spleen, adrenal glands and pancreas are unremarkable. There is severe left hydroureteronephrosis with delayed nephrogram and extensive left perinephric/left upper quadrant fluid. Of note, the left ureter slightly extends into the anterior aspect of the left sciatic foramen on image 270 of 3 49. The ureter is dilated proximal to this hernia and decompressed distally. There are no ureteral calculi. There is no right hydronephrosis. No evidence for a bowel obstruction. There is colonic diverticulosis without evidence for acute diverticulitis. There is anasarca. IMPRESSION: 1. Herniation of the left ureter into the left sciatic foramen resulting in severe left hydroureteronephrosis with delayed nephrographic and extensive perinephric/left upper quadrant fluid. 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 U rology consultation is recommended. 2. Small left pleural effusion. 3. Redemonstration of distal descending thoracic aortic and infrarenal abdominal aortic aneurysms. Extensive atherosclerotic plaque. No rupture. ACT 112: Negative or not required by law. Electronically signed by: Chris Carter M.D. 03/22/2025 11:35 AM Chest X-Ray 03/22/25 09:16 XR chest 1V portable CLINICAL HISTORY: hypertension COMPARISON STUDY: 03/05/2025 FINDINGS: Heart size and pulmonary vasculature are normal. No consolidation or pleural effusion. Skinfold artifact overlies the right chest. No pneumothorax seen. IMPRESSION: No acute findings. ACT 112: Negative or not required by law. Electronically signed by: Jimbo Rojo M.D. 03/22/2025 9:44 AM Pending Results Patient Have Any Pending Studies at Discharge: No Discharge Instructions Given to Patient (Per Discharging Provider) Faith, You were admitted to the hospital after a workup for your left-sided flank pain revealed herniation of your left ureter and severe hydronephrosis (swelling of your kidney). You were taken to the OR with the urology team and had a cystoscopy with left stent placement on 03/[address] Quiroz. You tolerated this procedure well. Physical therapy and Occupational Therapy evaluated you and recommended rehab on discharge. You are being discharged to [facility] for further rehab. Upon discharge from the hospital: * Use Tylenol as needed for mild/moderate pain. * Use oxycodone 5 mg every 4 hours as needed for severe pain. Do not drive or operate heavy machinery while taking oxycodone as it is a narcotic pain medication. * Follow-up with urology outpatient as directed. * Follow-up with your PCP in 1-2 weeks. While you have a ureteral stent in place: Some discomfort is normal. Certain movements may trigger pain or a feeling that you need to urinate. You may also feel mild soreness or pressure before or during urination. These symptoms should go away a few days after the stent is removed. Your urine may be slightly pink or red. This is due to bleeding caused by minor irritation from the stent. This may happen on and off while you have the stent, it is not harmful and is to be expected. Medication to help minimize discomfort or bladder spasms, or to prevent infection may be prescribed. Take this as directed. Drink plenty of fluids to help flush out your urinary tract. If you go home with a catheter, wash with soapy water and a fresh washcloth twice daily. We recommend mild bar soap such as Dial or Dove. When to call [facility] at [phone]: Your urine contains heavy blood clots You are constantly leaking urine Fever of 101F or higher, chills, nausea, or vomiting Your pain is not relieved with medication The end of the stent comes out of your urethra It was a pleasure taking care of you while you were in the hospital! Total Time Total Time Spent Total Time Spent (In Minutes): Greater than 30 minutes spent completing this discharge process including direct patient care, medication reconciliation, documentation, review of labs and images, and coordination of care. Coding Level of Care Code 48793 INP/OBS DISCH >30 MIN Diagnoses Hydronephrosis of left kidney N13.30 Hypertension I10 Underweight (BMI < 18.5) R63.6; Z68.1 Frailty syndrome in geriatric patient R54"
== END 2025-03-26 15:30 | DRG 659 ==
LOC: ED 08:30 → 3E 13:00 → OR 13:00 → SUATTDRO 03-24 15:51

== ENCOUNTER 2025-03-29 14:54 | Inpatient (IN) ==
--- NOTE | 2025-03-29 15:11 | Emergency Department Note ---
Impression & Plan Intractable abdominal pain, Acute hypokalemia ED Provider Note HISTORY OF PRESENT ILLNESS: Patient is a 74-year-old female presenting with right flank and right lower quadrant abdominal pain. Patient reports symptoms started about 48 hours ago and are gotten progressively worse. Patient was just admitted to [facility] and discharged 3 days ago with left flank pain and ended up having a stent placed in her left ureter. She has had gross hematuria ever since. Patient reports that she has had progressively worsening pain on her right side since being at her outpatient facility. She denies any fevers or chills. Reports nausea and had an episode of vomiting earlier. Denies any diarrhea. Denies any recent falls. She currently describes the pain as a stabbing sensation and rates it a 9 out of 10. ROS: as above PHYSICAL EXAM: Constitutional: Patient appears in no acute distress. HENT: Head: Normocephalic and atraumatic. Eyes: EOMI, PERRL Mouth/Throat: Mucous membranes moist. Neck: Trachea midline. Neck supple. Cardiovascular: RRR, No murmurs, rubs or gallops. Intact distal pulses. Pulmonary/Chest: No respiratory distress. Breath sounds clear and equal bilaterally. No wheezes or rales. Abdominal: Abdomen soft, no rebound or guarding. RLQ TTP Musculoskeletal: No edema, tenderness or deformity noted. Skin: Warm and dry. No rash, erythema, pallor or cyanosis Psychiatric: Appropriate mood and affect for situation. Neurological: Alert and keenly responsive. CN II-XII grossly intact, moving all extremities equally and fully. MDM: - Vitals signs showed hypertension - History obtained via patient. History as above. - Chronic conditions affecting care: HTN; anxiety; HLD - Differential diagnoses include, but are not limited to: Appendicitis; bowel obstruction; hydronephrosis; UTI; ureteral stone - Order placed for continuous cardiac monitoring. At this time, monitor showed rate of 73 bpm with normal sinus rhythm, per my interpretation. - External medical records reviewed. Discharge summary dated 03/26/2025 was reviewed. Patient was admitted for left-sided flank pain for 3 days. She was found to have herniation of her left ureter into her left sciatic foramen resulting in severe hydronephrosis. She underwent a cystoscopy with left-sided stent placement on 03/22/2025. - EKG image interpreted by myself showed normal sinus rhythm. Rate 70 bpm. QT 428. No acute ischemic changes. Noted to have some slight ST elevations in V1 and V2. However, patient is not complaining of any chest pain. - Laboratory workup interpreted by myself showed normal WBC; chronic anemia; slight hypokalemia (K 3.0); normal AST/ALT; normal creatinine; normal lipase - UA negative for infection. - CT abdomen/pelvis showed interval placement of a left ureteral stent with improved hydroureteronephrosis. Noted to have inflammatory changes of the urinary bladder which could be cystitis. Noted to have long segment wall thickening of the rectosigmoid concerning for colitis. - Patient initially given 1 L normal saline, 4 mg IV Zofran and 4 mg IV morphine. However, the patient still complaining of significant pain on reassessment, so given 50 mcg IV fentanyl. - Discussion was had with heel caser about patient's case and need for admission - Hospitalist consulted for admission. Requested that patient be given a dose of Rocephin given her recent urological interventions. 2 g IV Rocephin ordered. [facility] ASSESSMENT AND PLAN: Diagnosis: Intractable abdominal pain; acute hypokalemia Plan: Admit Past Med/Surg History Problem List (Updated 03/29/25 @ 20:02 by Annie Tierney MD) Acute hypokalemia (Acute) Intractable abdominal pain (Acute) Hydronephrosis of left kidney Nausea & vomiting (Acute) Hypertension (Acute) Acute left flank pain (Acute) Nausea & vomiting (Acute) Difficulty performing activity of daily living (ADL) (Acute) Fracture of shoulder (Acute) Abdominal pain (Acute) Abdominal pain (Acute) Proximal humerus fracture Acute hypokalemia Unable to care for self Opioid-induced constipation (Acute) Fecal impaction in rectum (Acute) Closed fracture of shoulder (Acute) Moderate protein-calorie malnutrition (Acute) Polypharmacy (Acute) Underweight (BMI < 18.5) Age-related physical debility (Acute) Frailty syndrome in geriatric patient (Acute) Simple chronic bronchitis Hyperlipidemia (Acute) 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) Hypertension (Chronic) 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) Carotid artery disease (Chronic) Hypertrophic cardiomyopathy (Chronic) Recurrent falls (Chronic) Anxiety (Chronic) Medical History Syncope COVID-19 Sigmoid diverticulitis Diverticulitis Uncontrolled hypertension Acute dehydration Weakness AAA (abdominal aortic aneurysm) Surgical History S/P tubal ligation Family History Other Diabetes Social History Smoking Status: Former smoker Tobacco Type: Cigarettes packs per day: 0.5; Cigarettes Per Day: 1/4 ppd.; Second Hand Exposure: No; Do You Dip or Chew Tobacco: No; Hx Alcohol Use: No Hx Substance Use: No Preferred Language: Indian Communication Ability: Effective Manager Review Required: No Beliefs That Will Affect Care: None Current Living Situation: Rehab Current Living Situation Comment: [facility]. Feels Safe at Home: Yes Assistive Devices: Walker Allergies Allergies Allergy/AdvReac Type Severity Reaction Status Date / Time salicylates AdvReac Intermediate INTOLERANCE Verified 03/29/25 17:32 Home Meds Home Medications Medication Instructions Recorded Confirmed albuterol sulfate 90 mcg/actuation 2 puff inhalation Q6H PRN 08/23/22 03/29/25 aerosol inhaler Shortness Of Breath Or Wheezing alprazolam 0.25 mg tablet 0.25 mg PO TID PRN anxiety 05/02/23 03/29/25 paroxetine HCl 12.5 mg 12.5 mg PO QAM 05/02/23 03/29/25 tablet,extended release 24 hr aspirin 81 mg chewable tablet 81 mg PO QAM 09/21/23 03/29/25 carvedilol 3.125 mg tablet 3.125 mg PO AMHS 09/21/23 03/29/25 amlodipine 5 mg tablet 5 mg PO QAM 12/19/24 03/29/25 rosuvastatin 20 mg tablet 20 mg PO QAM 12/19/24 03/29/25 acetaminophen 500 mg tablet 500 mg PO Q4H PRN PAIN/FEVER 02/27/25 03/29/25 (Tylenol Extra Strength) trazodone 50 mg tablet 50 mg PO HS PRN Sleep 02/27/25 03/29/25 Previous Rx's Medication Instructions Recorded docusate sodium 100 mg capsule 100 mg PO BID PRN Constipation #30 02/25/24 caps fluticasone propionate 50 2 spray NA DAILY PRN Nasal 02/25/24 mcg/actuation nasal congestion #16 grams spray,suspension oxycodone 5 mg tablet 5 mg PO Q4H PRN pain #10 tabs 03/26/25 polyethylene glycol 3350 17 gram 17 g PO DAILY PRN constipation #30 03/26/25 oral powder packet (Miralax) ea Results & Data (ED) Vital Signs Vital Signs - 24 hr 03/29/25 15:02 03/29/25 15:03 03/29/25 15:07 Temperature 36.7 C Temperature Source Oral Pulse Rate 71 72 71 Pulse Rate [Apical] Pulse Rate from SpO2 Sensor 71 Respiratory Rate 18 19 Blood Pressure 153/76 H Blood Pressure Mean 101 Pulse Oximetry 97 96 Oxygen Delivery Method Room Air Sepsis New/Unexplained Change in Mental Status No Sepsis Action Taken by Nursing No Action Required 03/29/25 15:09 03/29/25 15:12 03/29/25 15:21 Temperature Temperature Source Pulse Rate 72 73 74 Pulse Rate [Apical] Pulse Rate from SpO2 Sensor 73 74 Respiratory Rate 23 18 Blood Pressure Blood Pressure Mean Pulse Oximetry 96 95 96 Oxygen Delivery Method Room Air Sepsis New/Unexplained Change in Mental Status Sepsis Action Taken by Nursing 03/29/25 15:30 03/29/25 15:42 03/29/25 15:51 Temperature Temperature Source Pulse Rate 71 70 70 Pulse Rate [Apical] Pulse Rate from SpO2 Sensor 71 70 71 Respiratory Rate 19 18 21 Blood Pressure Blood Pressure Mean Pulse Oximetry 96 96 96 Oxygen Delivery Method Sepsis New/Unexplained Change in Mental Status Sepsis Action Taken by Nursing 03/29/25 15:52 03/29/25 15:52 03/29/25 15:52 Temperature Temperature Source Pulse Rate Pulse Rate [Apical] Pulse Rate from SpO2 Sensor Respiratory Rate Blood Pressure 125/67 125/67 125/67 Blood Pressure Mean 82 82 82 Pulse Oximetry Oxygen Delivery Method Sepsis New/Unexplained Change in Mental Status Sepsis Action Taken by Nursing 03/29/25 15:52 03/29/25 15:52 03/29/25 16:00 Temperature Temperature Source Pulse Rate 67 Pulse Rate [Apical] Pulse Rate from SpO2 Sensor 67 Respiratory Rate 25 H Blood Pressure 125/67 125/67 Blood Pressure Mean 82 82 Pulse Oximetry 91 Oxygen Delivery Method Sepsis New/Unexplained Change in Mental Status Sepsis Action Taken by Nursing 03/29/25 16:00 03/29/25 16:00 03/29/25 16:00 Temperature Temperature Source Pulse Rate Pulse Rate [Apical] Pulse Rate from SpO2 Sensor Respiratory Rate Blood Pressure 114/61 114/61 114/61 Blood Pressure Mean 80 80 80 Pulse Oximetry Oxygen Delivery Method Sepsis New/Unexplained Change in Mental Status Sepsis Action Taken by Nursing 03/29/25 16:00 03/29/25 16:00 03/29/25 16:12 Temperature Temperature Source Pulse Rate 64 Pulse Rate [Apical] Pulse Rate from SpO2 Sensor 64 Respiratory Rate 13 Blood Pressure 114/61 114/61 Blood Pressure Mean 80 80 Pulse Oximetry 94 Oxygen Delivery Method Sepsis New/Unexplained Change in Mental Status Sepsis Action Taken by Nursing 03/29/25 16:21 03/29/25 16:30 03/29/25 16:30 Temperature Temperature Source Pulse Rate Pulse Rate [Apical] Pulse Rate from SpO2 Sensor 64 64 Respiratory Rate 24 22 Blood Pressure 113/66 Blood Pressure Mean 85 Pulse Oximetry 93 92 Oxygen Delivery Method Sepsis New/Unexplained Change in Mental Status Sepsis Action Taken by Nursing 03/29/25 16:30 03/29/25 16:30 03/29/25 16:30 Temperature Temperature Source Pulse Rate Pulse Rate [Apical] Pulse Rate from SpO2 Sensor Respiratory Rate Blood Pressure 113/66 113/66 113/66 Blood Pressure Mean 85 85 85 Pulse Oximetry Oxygen Delivery Method Sepsis New/Unexplained Change in Mental Status Sepsis Action Taken by Nursing 03/29/25 16:30 03/29/25 17:03 03/29/25 17:21 Temperature Temperature Source Pulse Rate Pulse Rate [Apical] Pulse Rate from SpO2 Sensor 67 Respiratory Rate 18 21 Blood Pressure 113/66 Blood Pressure Mean 85 Pulse Oximetry 92 Oxygen Delivery Method Sepsis New/Unexplained Change in Mental Status Sepsis Action Taken by Nursing 03/29/25 17:30 03/29/25 17:30 03/29/25 17:30 Temperature Temperature Source Pulse Rate Pulse Rate [Apical] Pulse Rate from SpO2 Sensor 70 Respiratory Rate 26 H Blood Pressure 182/88 H 182/88 H Blood Pressure Mean 120 120 Pulse Oximetry 97 Oxygen Delivery Method Sepsis New/Unexplained Change in Mental Status Sepsis Action Taken by Nursing 03/29/25 17:30 03/29/25 17:30 03/29/25 17:30 Temperature Temperature Source Pulse Rate Pulse Rate [Apical] Pulse Rate from SpO2 Sensor Respiratory Rate Blood Pressure 182/88 H 182/88 H 182/88 H Blood Pressure Mean 120 120 120 Pulse Oximetry Oxygen Delivery Method Sepsis New/Unexplained Change in Mental Status Sepsis Action Taken by Nursing 03/29/25 17:42 03/29/25 17:51 03/29/25 18:00 Temperature Temperature Source Pulse Rate Pulse Rate [Apical] Pulse Rate from SpO2 Sensor 70 70 71 Respiratory Rate 19 25 H Blood Pressure Blood Pressure Mean Pulse Oximetry 92 94 93 Oxygen Delivery Method Sepsis New/Unexplained Change in Mental Status Sepsis Action Taken by Nursing 03/29/25 18:00 03/29/25 18:00 03/29/25 18:00 Temperature Temperature Source Pulse Rate Pulse Rate [Apical] Pulse Rate from SpO2 Sensor Respiratory Rate Blood Pressure 167/93 H 167/93 H 167/93 H Blood Pressure Mean 95 95 95 Pulse Oximetry Oxygen Delivery Method Sepsis New/Unexplained Change in Mental Status Sepsis Action Taken by Nursing 03/29/25 18:00 03/29/25 18:00 03/29/25 18:12 Temperature Temperature Source Pulse Rate Pulse Rate [Apical] Pulse Rate from SpO2 Sensor 72 Respiratory Rate 22 Blood Pressure 167/93 H 167/93 H Blood Pressure Mean 95 95 Pulse Oximetry 93 Oxygen Delivery Method Sepsis New/Unexplained Change in Mental Status Sepsis Action Taken by Nursing 03/29/25 18:20 03/29/25 18:25 03/29/25 18:25 Temperature Temperature Source Pulse Rate Pulse Rate [Apical] 73 Pulse Rate from SpO2 Sensor Respiratory Rate 19 Blood Pressure 188/96 H 188/96 H Blood Pressure Mean 116 116 Pulse Oximetry 93 Oxygen Delivery Method Room Air Sepsis New/Unexplained Change in Mental Status Sepsis Action Taken by Nursing 03/29/25 18:25 03/29/25 18:25 03/29/25 18:25 Temperature Temperature Source Pulse Rate Pulse Rate [Apical] Pulse Rate from SpO2 Sensor Respiratory Rate Blood Pressure 188/96 H 188/96 H 188/96 H Blood Pressure Mean 116 116 116 Pulse Oximetry Oxygen Delivery Method Sepsis New/Unexplained Change in Mental Status Sepsis Action Taken by Nursing 03/29/25 18:30 03/29/25 18:30 03/29/25 18:30 Temperature Temperature Source Pulse Rate Pulse Rate [Apical] Pulse Rate from SpO2 Sensor 71 Respiratory Rate 25 H Blood Pressure 192/94 H 192/94 H Blood Pressure Mean 119 119 Pulse Oximetry 94 Oxygen Delivery Method Sepsis New/Unexplained Change in Mental Status Sepsis Action Taken by Nursing 03/29/25 18:30 03/29/25 18:30 03/29/25 18:30 Temperature Temperature Source Pulse Rate Pulse Rate [Apical] Pulse Rate from SpO2 Sensor Respiratory Rate Blood Pressure 192/94 H 192/94 H 192/94 H Blood Pressure Mean 119 119 119 Pulse Oximetry Oxygen Delivery Method Sepsis New/Unexplained Change in Mental Status Sepsis Action Taken by Nursing 03/29/25 18:42 03/29/25 18:51 03/29/25 19:00 Temperature Temperature Source Pulse Rate Pulse Rate [Apical] Pulse Rate from SpO2 Sensor 69 67 68 Respiratory Rate 26 H 24 21 Blood Pressure Blood Pressure Mean Pulse Oximetry 97 100 99 Oxygen Delivery Method Sepsis New/Unexplained Change in Mental Status Sepsis Action Taken by Nursing 03/29/25 19:00 03/29/25 19:00 03/29/25 19:00 Temperature Temperature Source Pulse Rate Pulse Rate [Apical] Pulse Rate from SpO2 Sensor Respiratory Rate Blood Pressure 115/94 115/94 115/94 Blood Pressure Mean 98 98 98 Pulse Oximetry Oxygen Delivery Method Sepsis New/Unexplained Change in Mental Status Sepsis Action Taken by Nursing 03/29/25 19:00 03/29/25 19:00 03/29/25 19:12 Temperature Temperature Source Pulse Rate Pulse Rate [Apical] Pulse Rate from SpO2 Sensor 69 Respiratory Rate 18 Blood Pressure 115/94 115/94 Blood Pressure Mean 98 98 Pulse Oximetry 96 Oxygen Delivery Method Sepsis New/Unexplained Change in Mental Status Sepsis Action Taken by Nursing 03/29/25 19:21 03/29/25 19:30 03/29/25 19:30 Temperature Temperature Source Pulse Rate Pulse Rate [Apical] Pulse Rate from SpO2 Sensor 72 77 Respiratory Rate 18 19 Blood Pressure 144/109 H Blood Pressure Mean 114 Pulse Oximetry 94 94 Oxygen Delivery Method Sepsis New/Unexplained Change in Mental Status Sepsis Action Taken by Nursing 03/29/25 19:30 03/29/25 19:30 03/29/25 19:30 Temperature Temperature Source Pulse Rate Pulse Rate [Apical] Pulse Rate from SpO2 Sensor Respiratory Rate Blood Pressure 144/109 H 144/109 H 144/109 H Blood Pressure Mean 114 114 114 Pulse Oximetry Oxygen Delivery Method Sepsis New/Unexplained Change in Mental Status Sepsis Action Taken by Nursing 03/29/25 19:30 03/29/25 19:51 Temperature Temperature Source Pulse Rate Pulse Rate [Apical] Pulse Rate from SpO2 Sensor 71 Respiratory Rate 24 Blood Pressure 144/109 H Blood Pressure Mean 114 Pulse Oximetry 97 Oxygen Delivery Method Sepsis New/Unexplained Change in Mental Status Sepsis Action Taken by Nursing Laboratory Data 03/29/25 15:50 03/29/25 15:50 Lab Results 03/29/25 03/29/25 Range/Units 15:50 Unknown WBC 5.65 (4.8-10.8) K/ul RBC 3.03 L (4.20-5.40) M/uL Hgb 9.8 L (12.0-16.0) g/dL Hct 28.5 L (37.0-47.0) % MCV 94.1 (80.0-100.0) fL MCH 32.3 (25.0-34.0) pg MCHC 34.4 (32.0-36.0) g/dL RDW Std Deviation 44.1 (36.4-46.3) fL RDW Coeff of Yamile 12.7 (11.5-14.5) % Plt Count 182 (130-400) K/uL MPV 9.8 (9.4-12.4) fL Immature Gran % (Auto) 0.2 % Neut % (Auto) 62.7 % Lymph % (Auto) 22.5 % [place] % (Auto) 11.5 % Eos % (Auto) 2.7 % Baso % (Auto) 0.4 % Neut # (Auto) 3.55 (1.40-6.50) K/uL Lymph # (Auto) 1.27 (1.20-3.40) K/uL [place] # (Auto) 0.65 H (0.11-0.59) K/uL Eos # (Auto) 0.15 (0.00-0.50) K/uL Baso # (Auto) 0.02 (0.00-0.20) K/uL Immature Gran # (Auto) 0.01 (0.01-0.20) K/uL Sodium 139 (136-145) mmol/L Potassium 3.0 L (3.5-5.1) mmol/L Chloride 102 (98-107) mmol/L Carbon Dioxide 30 (21-32) mmol/L Anion Gap 7 (3-11) BUN 20 (6-23) mg/dl Creatinine 0.75 (0.6-1.2) mg/dl Est Cr Clr Drug Dosing 49.6 ml/min eGFR 84.54 BUN/Creatinine Ratio 26.7 H (10-20) Glucose 121 H (70-99(Fasting)) mg/dl Lactate 1.4 (0.4-2.0) mmol/L Calcium 8.6 (8.6-10.3) mg/dl Total Bilirubin 0.3 (0.2-1.0) mg/dl AST 18 (13-39) U/L ALT 25 (7-52) U/L Alkaline Phosphatase 73 (34-104) U/L Total Protein 6.2 (6.0-8.3) gm/dl Albumin 3.4 (3.4-5.0) gm/dl Globulin 2.8 (2.5-4.0) gm/dl Albumin/Globulin Ratio 1.2 (0.9-2) Lipase 27 (11-82) U/L Urine Color Red Urine Appearance Cloudy A (Clear) Urine pH 6.5 (4.5-7.5) Ur Specific [place] 1.022 (1.000-1.030) Urine Protein 3+ H (Negative) Urine Glucose (UA) Negative (Negative) Urine Ketones Negative (Negative) Urine Blood 3+ H (Negative) Urine Nitrite Negative (Negative) Urine Bilirubin Negative (Negative) Urine Urobilinogen Negative (Negative) Ur Leukocyte Esterase 2+ H (Negative) Urine WBC (Auto) 11-20 H (0-5) /hpf Urine RBC (Auto) >20 H (0-2) /hpf U Hyaline Cast (Auto) 3-5 H (0-2) /lpf U Epithel Cells (Auto) 0-2 (0-2) /hpf Urine Bacteria (Auto) None Seen (None Seen) Urine Comment Administered Medications Discontinued Medications Fentanyl Citrate (Fentanyl Citrate Pf 100 Mcg/2 Ml Vial) 50 mcg IV NOW STA Stop: 03/29/25 18:30 Last Admin: 03/29/25 18:33 Dose: 50 mcg Documented By: BENY Sodium Chloride (Nss) 1,000 mls @ 999 mls/hr IV .Q1H1M ONE Stop: 03/29/25 16:08 Last Infusion: 03/29/25 17:20 Dose: Infused Documented By: Admin: 03/29/25 15:53 Dose: 999 mls/hr Documented By: BENY Ioversol (Optiray 320 100ml) 93 ml IV ONCE ONE Stop: 03/29/25 16:56 Last Admin: 03/29/25 16:55 Dose: 93 ml Documented By: ALEJANDRO Morphine Sulfate (Morphine Sulfate 4 Mg/Ml 1 Ml Carp\Vial) 4 mg IV NOW STA Stop: 03/29/25 15:09 Last Admin: 03/29/25 15:53 Dose: 4 mg Documented By: BS Ondansetron HCl (Ondansetron Inj 2 Mg/Ml 2 Ml Vial) 4 mg IV NOW STA Stop: 03/29/25 15:09 Last Admin: 03/29/25 15:53 Dose: 4 mg Documented By: BENY Imaging Data Radiologist's Impression: Abdomen/Pelvis CT 03/29/25 15:09 CT ABDOMEN and PELVIS with INTRAVENOUS CONTRAST HISTORY: Abdominal pain TECHNIQUE: CT abdomen and pelvis with contrast. IV CONTRAST: 100 mL of OMNIPAQUE 300 ENTERIC CONTRAST: Not Given COMPARISON: FINDINGS: LOWER CHEST: Unchanged cardiomegaly with coronary valvular calcifications. Emphysema. Trace left pleural fluid has decreased from previous LIVER: No focal lesion identified. Hepatomegaly. Scattered subcentimeter hypodensities are unchanged into smaller characterize but likely represent cysts or hemangiomas. GALLBLADDER/BILIARY: Unremarkable gallbladder. No abnormal biliary dilatation. SPLEEN: Unremarkable. PANCREAS: Unremarkable. ADRENALS: Unremarkable. KIDNEYS: Interval placement of an internalized left ureteral stent with improved hydroureteronephrosis. Mild left-sided hydronephrosis remains. The distal segment of the ureteral stent is seen within the lumen of the urinary bladder. The segment that is intraluminal within the urinary bladder measures 2.3 cm in length and the expected loop configuration of the stent is not seen. No urolithiasis, hydronephrosis or hydroureter involving the right sided urinary system. PERITONEUM/RETROPERITONEUM. No lymphadenopathy by size criteria. Multifocal aneurysmal changes of the abdominal aorta measuring up to 5.1 cm, largest at the aortic hiatus. GASTROINTESTINAL: No obstruction. Redemonstrate postsurgical changes of right hemicolectomy with ileocolic acidosis. Colonic diverticulosis without evidence of diverticulitis. Long segment wall thickening of the rectosigmoid. Long-segment wall thickening of the rectosigmoid may represent colitis. REPRODUCTIVE: URINARY BLADDER: Inflammatory changes wall thickening. There are scattered foci of intraluminal air. BONES: No acute findings. IMPRESSION: Interval placement of an internalized left ureteral stent with improved hydroureteronephrosis. Mild left-sided hydronephrosis remains. The distal segment of the ureteral stent is seen within the lumen of the urinary bladder. The segment that is intraluminal within the urinary bladder measures 2.3 cm in length and the expected loop configuration of the stent is not seen. Please clinically correlate Inflammatory changes of the urinary bladder may be due to cystitis. Small intraluminal foci of gas are seen in the urinary bladder. This may be due to recent instrumentation or procedure. Recommend clinical correlation. Long-segment wall thickening of the rectosigmoid may represent colitis. Electronically signed by Km Torrez 03-29-2025 6:59 PM Discharge Plan Visit Data Chief Complaint: Flank Pain Stated Complaint: FLANK PAIN ED Provider: Annie Tierney Discharge Problem: Intractable abdominal pain, Acute hypokalemia Patient Disposition: Admitted As Inpatient Condition: Fair Forms Stand Alone Forms: [facility] Prescriptions Prescriptions: No Action albuterol sulfate 90 mcg/actuation HFA aerosol inhaler 2 puff INHALATION Q6H PRN (Reason: Shortness Of Breath Or Wheezing) alprazolam 0.25 mg tablet 0.25 mg PO TID PRN (Reason: anxiety ) paroxetine HCl 12.5 mg tablet extended release 24 hr 12.5 mg PO QAM carvedilol 3.125 mg tablet 3.125 mg PO AMHS aspirin 81 mg Tablet,Chewable 81 mg PO QAM oxycodone 5 mg Tablet 5 mg PO Q4H PRN (Reason: pain) Qty: 10 0RF polyethylene glycol 3350 [Miralax] 17 gram Powder In Packet 17 g PO DAILY PRN (Reason: constipation) Qty: 30 0RF fluticasone propionate 50 mcg/actuation [place],Suspension 2 spray NA DAILY PRN (Reason: Nasal congestion) Qty: 16 0RF docusate sodium 100 mg Capsule 100 mg PO BID PRN (Reason: Constipation) Qty: 30 0RF rosuvastatin 20 mg tablet 20 mg PO QAM amlodipine 5 mg tablet 5 mg PO QAM Hold Instructions: Resume on 03/05/25. Discuss resuming with PCP Rx Instructions: HAS PREVIOUSLY BEEN ON HOLD, UNSURE IF STILL TAKING THIS MED. trazodone 50 mg Tablet 50 mg PO HS PRN (Reason: Sleep) acetaminophen [Tylenol Extra Strength] 500 mg tablet 500 mg PO Q4H PRN (Reason: PAIN/FEVER) Referrals Referrals: Gurpreet Lo III, MD [Primary Care Provider] -
[2025-03-29] MEDS: ONDANSETRON INJ 2 MG/ML 2 ML VIAL IV STA (15:53)
[2025-03-29] MEDS: SODIUM CHLORIDE 0.9% 1,000 ML IV ONE (15:53)
[2025-03-29] MEDS: MoRPHine SULFATE 4 MG/ML 1 ML CARP\\VIAL IV STA (15:53)
[2025-03-29 16:05] LABS: Hematocrit (blood only) 28.5 % (37.0-47.0); Hemoglobin 9.8 g/dL (12.0-16.0); Immature Granulocytes # (auto) 0.01 K/uL (0.01-0.20); Immature Granulocytes % (auto) 0.2 %; Mean Corpuscular Hemoglobin 32.3 pg (25.0-34.0); Mean Corpuscular Volume 94.1 fL (80.0-100.0); Platelet Count 182 K/uL (130-400); RDW Standard Deviation 44.1 fL (36.4-46.3); Red Blood Count 3.03 M/uL (4.20-5.40); White Blood Count 5.65 K/ul (4.8-10.8)
[2025-03-29 16:23] LABS: Alanine Aminotransferase 25.0 U/L (7-52); Albumin Globulin Ratio 1.2 (0.9-2); Albumin Level 3.4 gm/dl (3.4-5.0); Alkaline Phosphatase 73.0 U/L (34-104); Anion Gap 7.0 (3-11); Bilirubin,Total 0.3 mg/dl (0.2-1.0); Blood Urea Nitrogen 20.0 mg/dl (6-23); Calcium 8.6 mg/dl (8.6-10.3); Carbon Dioxide 30.0 mmol/L (21-32); Chloride 102.0 mmol/L (98-107); Creatinine Clr Calc Pharmacy 49.6 ml/min; Globulin 2.8 gm/dl (2.5-4.0); Glucose 121.0 mg/dl (70-99(Fasting)); Lipase 27.0 U/L (11-82); Potassium 3.0 mmol/L (3.5-5.1); Sodium 139.0 mmol/L (136-145); Total Protein 6.2 gm/dl (6.0-8.3)
[2025-03-29] MEDS: OPTIRAY 320 100ml IV ONE (16:55)
[2025-03-29 17:43] LABS: Appearance Urine Cloudy (Clear); Bacteria Urine Automated None Seen (None Seen); Epithelial Cell Urine Auto 0-2 /hpf (0-2); Glucose Urine UA Negative (Negative); RBC Urine Automated >20 /hpf (0-2)
--- NOTE | 2025-03-29 18:59 | CT Scan Report ---
CT ABDOMEN and PELVIS with INTRAVENOUS CONTRAST HISTORY: Abdominal pain TECHNIQUE: CT abdomen and pelvis with contrast. IV CONTRAST: 100 mL of OMNIPAQUE 300 ENTERIC CONTRAST: Not Given COMPARISON: FINDINGS: LOWER CHEST: Unchanged cardiomegaly with coronary valvular calcifications. Emphysema. Trace left pleural fluid has decreased from previous LIVER: No focal lesion identified. Hepatomegaly. Scattered subcentimeter hypodensities are unchanged into smaller characterize but likely represent cysts or hemangiomas. GALLBLADDER/BILIARY: Unremarkable gallbladder. No abnormal biliary dilatation. SPLEEN: Unremarkable. PANCREAS: Unremarkable. ADRENALS: Unremarkable. KIDNEYS: Interval placement of an internalized left ureteral stent with improved hydroureteronephrosis. Mild left-sided hydronephrosis remains. The distal segment of the ureteral stent is seen within the lumen of the urinary bladder. The segment that is intraluminal within the urinary bladder measures 2.3 cm in length and the expected loop configuration of the stent is not seen. No urolithiasis, hydronephrosis or hydroureter involving the right sided urinary system. PERITONEUM/RETROPERITONEUM. No lymphadenopathy by size criteria. Multifocal aneurysmal changes of the abdominal aorta measuring up to 5.1 cm, largest at the aortic hiatus. GASTROINTESTINAL: No obstruction. Redemonstrate postsurgical changes of right hemicolectomy with ileocolic acidosis. Colonic diverticulosis without evidence of diverticulitis. Long segment wall thickening of the rectosigmoid. Long-segment wall thickening of the rectosigmoid may represent colitis. REPRODUCTIVE: URINARY BLADDER: Inflammatory changes wall thickening. There are scattered foci of intraluminal air. BONES: No acute findings. IMPRESSION: Interval placement of an internalized left ureteral stent with improved hydroureteronephrosis. Mild left-sided hydronephrosis remains. The distal segment of the ureteral stent is seen within the lumen of the urinary bladder. The segment that is intraluminal within the urinary bladder measures 2.3 cm in length and the expected loop configuration of the stent is not seen. Please clinically correlate Inflammatory changes of the urinary bladder may be due to cystitis. Small intraluminal foci of gas are seen in the urinary bladder. This may be due to recent instrumentation or procedure. Recommend clinical correlation. Long-segment wall thickening of the rectosigmoid may represent colitis. Electronically signed by Km Torrez 03-29-2025 6:59 PM
[2025-03-29] MEDS: cefTRIAXone SODIUM 2,000 MG/50 ML BAG IV STA (20:00)
--- NOTE | 2025-03-29 20:09 | History & Physical Report ---
Date of Service March 29, 2025 Assessment & Plan (1) Intractable abdominal pain: (2) Acute hypokalemia: (3) Hypertension: (4) Hyperlipidemia: Plan 74yo female with recent hospital admission for left flank pain found to have herniation of the left ureter s/p cystoscopy with stent placement presenting with lower abdominal pain, cramping. #Intractable lower abdominal pain - ?secondary to bladder spasms, presence of stent vs colitis noted on imaging, possible infection -Observation to medical -Await results of urine culture -Pain control with Tylenol, Morphine PRN -Ceftriaxone 1gm IV daily -Oxybutynin 5mg po BID as needed -Pyridium as needed #Hypokalemia - K=3. -Received 80mEq in the ER -Repeat chemistry in AM #Anxiety/Mental Health -Xanax 0.25mg po TID as needed -Continue Paroxetine 12.5mg po daily -Continue Trazodone 100mg po qHS #Hypertension -Continue Amlodipine 5mg po daily -Continue Carvedilol 3.125mg po BID -Monitor BP #GERD -Continue Protonix 40mg po BID Lovenox for DVT prophylaxis Code -DNR/DNI per discussion with patient History of Present Illness Chief Complaint: lower abdominal pain, back pain Primary Care Provider: Gurpreet Lo III, MD Ya Chavis is a 74yo female with history of HTN, HLP, CAD presenting with lower abdominal pain and back pain. Patient was recently admitted to [facility] from 03/24-03/26/2025 after presenting with left flank pain, nausea and vomiting. She was found to have herniation of the left ureter into the left sciatic foramen resulting in severe left hydroureteronephrosis with delayed nephrographic and extensive perinephric/left upper quadrant fluid. She was evaluated by Urology and had a cystoscopy with stent placement performed by Dr. Quiroz on 03/22/2025. Her stent is to remain in place for 2-4 weeks and she is to followup with outpatient Urology. Patient returns to the ER today after being in [facility] for three days with lower abdominal discomfort - severe 9/10, bandlike across her lower abdomen, slightly worse on the right side compared to left. She feels that she is having bladder spasms on occasion as well. She has been having occasional nausea associated with her pain. No fever, chills, chest pain, cough, SOB. Ongoing hematuria since having the stent placed No additional complaints at this time. In the ER she is afebrile, HD stable Agitated at times ER Course: Fentanyl 50mcg IV Morphine 4mg IV + 2mg IV NSS x 1L Zofran 4mg IV Ceftriaxone 2gm IV Allergies Allergy/AdvReac Type Severity Reaction Status Date / Time salicylates AdvReac Intermediate INTOLERANCE Verified 03/29/25 17:32 Home Medications Medication Instructions Recorded Confirmed Type albuterol sulfate 90 mcg/actuation 2 puff inhalation Q6H PRN 08/23/22 03/29/25 History aerosol inhaler Shortness Of Breath Or Wheezing alprazolam 0.25 mg tablet 0.25 mg PO TID PRN anxiety 05/02/23 03/29/25 History paroxetine HCl 12.5 mg 12.5 mg PO QAM 05/02/23 03/29/25 History tablet,extended release 24 hr aspirin 81 mg chewable tablet 81 mg PO QAM 09/21/23 03/29/25 History carvedilol 3.125 mg tablet 3.125 mg PO AMHS 09/21/23 03/29/25 History docusate sodium 100 mg capsule 100 mg PO BID PRN Constipation #30 02/25/24 03/29/25 Rx caps fluticasone propionate 50 2 spray NA DAILY PRN Nasal 02/25/24 03/29/25 Rx mcg/actuation nasal congestion #16 grams spray,suspension amlodipine 5 mg tablet 5 mg PO QAM 12/19/24 03/29/25 History rosuvastatin 20 mg tablet 20 mg PO QAM 12/19/24 03/29/25 History acetaminophen 500 mg tablet 500 mg PO Q4H PRN PAIN/FEVER 02/27/25 03/29/25 History (Tylenol Extra Strength) trazodone 50 mg tablet 50 mg PO HS PRN Sleep 02/27/25 03/29/25 History oxycodone 5 mg tablet 5 mg PO Q4H PRN pain #10 tabs 03/26/25 03/29/25 Rx polyethylene glycol 3350 17 gram 17 g PO DAILY PRN constipation #30 03/26/25 03/29/25 Rx oral powder packet (Miralax) ea pantoprazole 40 mg tablet,delayed 40 mg PO BID 03/30/25 03/30/25 History release Past Med/Surg History Problem List Acute hypokalemia (Acute) Intractable abdominal pain (Acute) Hydronephrosis of left kidney Nausea & vomiting (Acute) Hypertension (Acute) Acute left flank pain (Acute) Nausea & vomiting (Acute) Difficulty performing activity of daily living (ADL) (Acute) Fracture of shoulder (Acute) Abdominal pain (Acute) Abdominal pain (Acute) Proximal humerus fracture Acute hypokalemia Unable to care for self Opioid-induced constipation (Acute) Fecal impaction in rectum (Acute) Closed fracture of shoulder (Acute) Moderate protein-calorie malnutrition (Acute) Polypharmacy (Acute) Underweight (BMI < 18.5) Age-related physical debility (Acute) Frailty syndrome in geriatric patient (Acute) Simple chronic bronchitis Hyperlipidemia (Acute) 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) Hypertension (Chronic) 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) Carotid artery disease (Chronic) Hypertrophic cardiomyopathy (Chronic) Recurrent falls (Chronic) Anxiety (Chronic) Medical History Elevated troponin level not due myocardial infarction Syncope COVID-19 Sigmoid diverticulitis Diverticulitis Uncontrolled hypertension Acute dehydration Weakness AAA (abdominal aortic aneurysm) Surgical History S/P tubal ligation Family History Other Diabetes Social History Smoking Status: Former smoker Tobacco Type: Cigarettes packs per day: 0.5; Cigarettes Per Day: 1/4 ppd.; Second Hand Exposure: No; Do You Dip or Chew Tobacco: No; Hx Alcohol Use: No Hx Substance Use: No Preferred Language: Lao Communication Ability: Effective Carding Machine Operator Required: No Beliefs That Will Affect Care: None Current Living Situation: Rehab Current Living Situation Comment: [facility]. Feels Safe at Home: Yes Assistive Devices: Walker Review of Systems Review of Systems: All systems reviewed & are unremarkable except as noted in HPI & below Physical Exam Physical Exam: General: patient resting comfortably, NAD, non-toxic in appearance, AA&O x 4 Skin: warm, dry, intact, no rashes or lesions HEENT: NC/AT, PERRL, EOMI, anicteric sclera, conjunctiva without injection, external ear normal to inspection and nontender, nares patent, moist mucus membranes, dentition intact, no oropharyngeal lesions, neck supple, trachea midline, no LAD, no thyromegaly, no JVD Heart: +S1/S2, regular, no m/r/g Lungs: equal air entry bilaterally, no rales/rhonchi/wheezes Abd: +BS, soft, ND, tenderness in the lower abdomen with some voluntary guarding, no rebound, no masses/organomegaly/ascites Ext: warm, 2+ pulses in UE/LE bilaterally, no clubbing/cyanosis or edema Neuro: nonfocal, patient AA&O x 4, speech intact, no facial droop, moving all extremities on command with equal strength 5/5 Results & Data Results & Data Vital Signs (Past 12 Hours) Vital Signs Temp Pulse Pulse Resp BP Pulse Ox O2 Del Method 03/29/25 19:51 24 97 03/29/25 19:30 144/109 H 03/29/25 19:30 144/109 H 03/29/25 19:30 144/109 H 03/29/25 19:30 144/109 H 03/29/25 19:30 144/109 H 03/29/25 19:30 19 94 03/29/25 19:21 18 94 03/29/25 19:12 18 96 03/29/25 19:00 115/03/29/25 19:00 115/03/29/25 19:00 115/94 03/29/25 19:00 115/94 03/29/25 19:00 115/94 03/29/25 19:00 21 99 03/29/25 18:51 24 100 03/29/25 18:42 26 H 97 03/29/25 18:30 192/94 H 03/29/25 18:30 192/94 H 03/29/25 18:30 192/94 H 03/29/25 18:30 192/94 H 03/29/25 18:30 192/94 H 03/29/25 18:30 25 H 94 03/29/25 18:25 188/96 H 03/29/25 18:25 188/96 H 03/29/25 18:25 188/96 H 03/29/25 18:25 188/96 H 03/29/25 18:25 188/96 H 03/29/25 18:20 73 19 93 Room Air 03/29/25 18:12 22 93 03/29/25 18:00 167/93 H 03/29/25 18:00 167/93 H 03/29/25 18:00 167/93 H 03/29/25 18:00 167/93 H 03/29/25 18:00 167/93 H 03/29/25 18:00 25 H 93 03/29/25 17:51 19 94 03/29/25 17:42 21 92 03/29/25 17:30 182/88 H 03/29/25 17:30 182/88 H 03/29/25 17:30 182/88 H 03/29/25 17:30 182/88 H 03/29/25 17:30 182/88 H 03/29/25 17:30 26 H 97 03/29/25 17:21 21 03/29/25 17:03 18 92 03/29/25 16:30 113/66 03/29/25 16:30 113/66 03/29/25 16:30 113/66 03/29/25 16:30 113/66 03/29/25 16:30 113/66 03/29/25 16:30 22 92 03/29/25 16:21 24 93 03/29/25 16:12 64 13 94 03/29/25 16:00 114/61 03/29/25 16:00 114/61 03/29/25 16:00 114/61 03/29/25 16:00 114/61 03/29/25 16:00 114/61 03/29/25 16:00 67 25 H 91 03/29/25 15:52 125/67 03/29/25 15:52 125/67 03/29/25 15:52 125/67 03/29/25 15:52 125/67 03/29/25 15:52 125/67 03/29/25 15:51 70 21 96 03/29/25 15:42 70 18 96 03/29/25 15:30 71 19 96 03/29/25 15:21 74 18 96 03/29/25 15:12 73 23 95 03/29/25 15:09 72 96 Room Air 03/29/25 15:07 71 03/29/25 15:03 72 19 96 03/29/25 15:02 36.7 C 71 18 153/76 H 97 Room Air Laboratory Results Laboratory Results WBC 5.65 K/ul (4.8-10.8) 03/29/25 15:50 RBC 3.03 M/uL (4.20-5.40) L 03/29/25 15:50 Hgb 9.8 g/dL (12.0-16.0) L 03/29/25 15:50 Hct 28.5 % (37.0-47.0) L 03/29/25 15:50 MCV 94.1 fL (80.0-100.0) 03/29/25 15:50 MCH 32.3 pg (25.0-34.0) 03/29/25 15:50 MCHC 34.4 g/dL (32.0-36.0) 03/29/25 15:50 RDW Std Deviation 44.1 fL (36.4-46.3) 03/29/25 15:50 RDW Coeff of Yamile 12.7 % (11.5-14.5) 03/29/25 15:50 Plt Count 182 K/uL (130-400) 03/29/25 15:50 MPV 9.8 fL (9.4-12.4) 03/29/25 15:50 Immature Gran % (Auto) 0.2 % 03/29/25 15:50 Neut % (Auto) 62.7 % 03/29/25 15:50 Lymph % (Auto) 22.5 % 03/29/25 15:50 [place] % (Auto) 11.5 % 03/29/25 15:50 Eos % (Auto) 2.7 % 03/29/25 15:50 Baso % (Auto) 0.4 % 03/29/25 15:50 Neut # (Auto) 3.55 K/uL (1.40-6.50) 03/29/25 15:50 Lymph # (Auto) 1.27 K/uL (1.20-3.40) 03/29/25 15:50 [place] # (Auto) 0.65 K/uL (0.11-0.59) H 03/29/25 15:50 Eos # (Auto) 0.15 K/uL (0.00-0.50) 03/29/25 15:50 Baso # (Auto) 0.02 K/uL (0.00-0.20) 03/29/25 15:50 Immature Gran # (Auto) 0.01 K/uL (0.01-0.20) 03/29/25 15:50 Sodium 139 mmol/L (136-145) 03/29/25 15:50 Potassium 3.0 mmol/L (3.5-5.1) L 03/29/25 15:50 Chloride 102 mmol/L (98-107) 03/29/25 15:50 Carbon Dioxide 30 mmol/L (21-32) 03/29/25 15:50 Anion Gap 7 (3-11) 03/29/25 15:50 BUN 20 mg/dl (6-23) 03/29/25 15:50 Creatinine 0.75 mg/dl (0.6-1.2) 03/29/25 15:50 Est Cr Clr Drug Dosing 49.6 ml/min 03/29/25 15:50 eGFR 84.54 03/29/25 15:50 BUN/Creatinine Ratio 26.7 (10-20) H 03/29/25 15:50 Glucose 121 mg/dl (70-99(Fasting)) H 03/29/25 15:50 Lactate 1.4 mmol/L (0.4-2.0) 03/29/25 15:50 Calcium 8.6 mg/dl (8.6-10.3) 03/29/25 15:50 Magnesium 2.0 mg/dl (1.7-2.4) 03/29/25 15:50 Total Bilirubin 0.3 mg/dl (0.2-1.0) 03/29/25 15:50 AST 18 U/L (13-39) 03/29/25 15:50 ALT 25 U/L (7-52) 03/29/25 15:50 Alkaline Phosphatase 73 U/L (34-104) 03/29/25 15:50 Total Protein 6.2 gm/dl (6.0-8.3) 03/29/25 15:50 Albumin 3.4 gm/dl (3.4-5.0) 03/29/25 15:50 Globulin 2.8 gm/dl (2.5-4.0) 03/29/25 15:50 Albumin/Globulin Ratio 1.2 (0.9-2) 03/29/25 15:50 Lipase 27 U/L (11-82) 03/29/25 15:50 Urine Color Red 03/29/25 Unknown Urine Appearance Cloudy (Clear) A 03/29/25 Unknown Urine pH 6.5 (4.5-7.5) 03/29/25 Unknown Ur Specific [place] 1.022 (1.000-1.030) 03/29/25 Unknown Urine Protein 3+ (Negative) H 03/29/25 Unknown Urine Glucose (UA) Negative (Negative) 03/29/25 Unknown Urine Ketones Negative (Negative) 03/29/25 Unknown Urine Blood 3+ (Negative) H 03/29/25 Unknown Urine Nitrite Negative (Negative) 03/29/25 Unknown Urine Bilirubin Negative (Negative) 03/29/25 Unknown Urine Urobilinogen Negative (Negative) 03/29/25 Unknown Ur Leukocyte Esterase 2+ (Negative) H 03/29/25 Unknown Urine WBC (Auto) 11-20 /hpf (0-5) H 03/29/25 Unknown Urine RBC (Auto) >20 /hpf (0-2) H 03/29/25 Unknown U Hyaline Cast (Auto) 3-5 /lpf (0-2) H 03/29/25 Unknown U Epithel Cells (Auto) 0-2 /hpf (0-2) 03/29/25 Unknown Urine Bacteria (Auto) None Seen (None Seen) 03/29/25 Unknown Urine Comment 03/29/25 Unknown Impressions Abdomen/Pelvis CT 03/29/25 15:09 CT ABDOMEN and PELVIS with INTRAVENOUS CONTRAST HISTORY: Abdominal pain TECHNIQUE: CT abdomen and pelvis with contrast. IV CONTRAST: 100 mL of OMNIPAQUE 300 ENTERIC CONTRAST: Not Given COMPARISON: FINDINGS: LOWER CHEST: Unchanged cardiomegaly with coronary valvular calcifications. Emphysema. Trace left pleural fluid has decreased from previous LIVER: No focal lesion identified. Hepatomegaly. Scattered subcentimeter hypodensities are unchanged into smaller characterize but likely represent cysts or hemangiomas. GALLBLADDER/BILIARY: Unremarkable gallbladder. No abnormal biliary dilatation. SPLEEN: Unremarkable. PANCREAS: Unremarkable. ADRENALS: Unremarkable. KIDNEYS: Interval placement of an internalized left ureteral stent with improved hydroureteronephrosis. Mild left-sided hydronephrosis remains. The distal segment of the ureteral stent is seen within the lumen of the urinary bladder. The segment that is intraluminal within the urinary bladder measures 2.3 cm in length and the expected loop configuration of the stent is not seen. No urolithiasis, hydronephrosis or hydroureter involving the right sided urinary system. PERITONEUM/RETROPERITONEUM. No lymphadenopathy by size criteria. Multifocal aneurysmal changes of the abdominal aorta measuring up to 5.1 cm, largest at the aortic hiatus. GASTROINTESTINAL: No obstruction. Redemonstrate postsurgical changes of right hemicolectomy with ileocolic acidosis. Colonic diverticulosis without evidence of diverticulitis. Long segment wall thickening of the rectosigmoid. Long-segment wall thickening of the rectosigmoid may represent colitis. REPRODUCTIVE: URINARY BLADDER: Inflammatory changes wall thickening. There are scattered foci of intraluminal air. BONES: No acute findings. IMPRESSION: Interval placement of an internalized left ureteral stent with improved hydroureteronephrosis. Mild left-sided hydronephrosis remains. The distal segment of the ureteral stent is seen within the lumen of the urinary bladder. The segment that is intraluminal within the urinary bladder measures 2.3 cm in length and the expected loop configuration of the stent is not seen. Please clinically correlate Inflammatory changes of the urinary bladder may be due to cystitis. Small intraluminal foci of gas are seen in the urinary bladder. This may be due to recent instrumentation or procedure. Recommend clinical correlation. Long-segment wall thickening of the rectosigmoid may represent colitis. Electronically signed by Km Torrez 03-29-2025 6:59 PM ECG Additional Comments: [place], [place] Electrocardiogram Report Signed Patient: YA CHAVIS Admit Date: 03/29/25 MR#: [id number] Att Phy: Acct ID: [id number] Maria E Phy: Gurpreet Lo III, MD Date: 1950 Fam Phy: Age: 74 Location: ED Sex: F Room/Bed: Legal Sex: F cc: ~ DICTATED BY: Raul Zhou MD Test Reason : Blood Pressure : */* mmHG Vent. Rate : 70 BPM Atrial Rate : 70 BPM P-R Int : 194 ms QRS Dur : 68 ms QT Int : 428 ms P-R-T Axes : 66 39 81 degrees QTcB Int : 462 ms Normal sinus rhythm Septal infarct When compared with ECG of 22-Mar-2025 08:46, ST elevation now present in Anterior leads Confirmed by Raul Zhou ([id number]) on 03/29/2025 10:51:43 PM Referred By: Confirmed By: Raul Zhou PG Care Time/CCT Total # of Minutes Spent Total Time Spent with Patient: Total time spent is greater than 50% in coordination of care (as documented) at patient's floor/unit and/or counseling patient: Coding Level of Care Code 73489 INT INP/OBS CARE 3/75MIN Diagnoses Intractable abdominal pain R10.9 Acute hypokalemia E87.6 Hypertension I10 Hyperlipidemia E78.5
--- NOTE | 2025-03-29 22:52 | Electrocardiogram Report ---
Test Reason : Blood Pressure : */* mmHG Vent. Rate : 70 BPM Atrial Rate : 70 BPM P-R Int : 194 ms QRS Dur : 68 ms QT Int : 428 ms P-R-T Axes : 66 39 81 degrees QTcB Int : 462 ms Normal sinus rhythm Septal infarct When compared with ECG of 22-Mar-2025 08:46, ST elevation now present in Anterior leads Confirmed by Raul Zhou ([id number]) on 03/29/2025 10:51:43 PM Referred By: Confirmed By: Raul Zhou
[2025-03-29] MEDS ORDERED: ALBUTEROL HFA 8 GM INHALER INH PRN (23:03)
[2025-03-29] MEDS ORDERED: PHENAZOPYRIDINE HCL 100 MG TAB PO PRN (23:03)
[2025-03-29] MEDS ORDERED: POLYETHYLENE (MIRALAX) 17 GM PACK PO PRN (23:03)
[2025-03-29] MEDS: MoRPHine SULFATE 2 MG/ML CARP IV PRN (23:34)
[2025-03-29 23:51] LABS: Magnesium 2.0 mg/dl (1.7-2.4)
[2025-03-30] MEDS: DOCUSATE SODIUM 100 MG CAP PO ONE (01:26)
[2025-03-30] MEDS: POTASSIUM CHLORIDE 10 MEQ TABCR PO STA (01:48)
[2025-03-30 07:00] LABS: Hematocrit (blood only) 28.5 % (37.0-47.0); Hemoglobin 9.2 g/dL (12.0-16.0); Mean Corpuscular Hemoglobin 31.1 pg (25.0-34.0); Mean Corpuscular Volume 96.3 fL (80.0-100.0); Platelet Count 162 K/uL (130-400); RDW Standard Deviation 45.8 fL (36.4-46.3); Red Blood Count 2.96 M/uL (4.20-5.40); White Blood Count 4.80 K/ul (4.8-10.8)
[2025-03-30 07:36] LABS: Anion Gap 6.0 (3-11); Blood Urea Nitrogen 19.0 mg/dl (6-23); Calcium 8.3 mg/dl (8.6-10.3); Carbon Dioxide 30.0 mmol/L (21-32); Chloride 105.0 mmol/L (98-107); Creatinine Clr Calc Pharmacy 43.2 ml/min; Glucose 95.0 mg/dl (70-99(Fasting)); Potassium 3.1 mmol/L (3.5-5.1); Sodium 141.0 mmol/L (136-145)
[2025-03-30] MEDS: ROSUVASTATIN CALCIUM 20 MG TAB PO SCH (09:04)
[2025-03-30] MEDS: PARoxetine HCl CONTROLLED REL 12.5 MG TABCR PO SCH (09:04)
[2025-03-30] MEDS: ASPIRIN 81 MG CHEW PO SCH (09:04)
[2025-03-30] MEDS: ENOXAPARIN INJ 30 MG/0.3 ML SYR SQ SCH (09:05)
[2025-03-30] MEDS: cefTRIAXone SODIUM 1,000 MG/50 ML BAG IV SCH (09:05)
[2025-03-30] MEDS: POTASSIUM CHLORIDE CRTAB 20 MEQ TABCR PO STA (12:04)
[2025-03-30] MEDS: metroNIDAZOLE 500 MG/100 ML BAG IV SCH (12:14)
--- NOTE | 2025-03-30 14:51 | Hospitalist Progress Note ---
Date of Service March 30, 2025 Assessment & Plan (1) Intractable abdominal pain: (2) Colitis: (3) S/P ureteral stent placement: (4) Acute hypokalemia: (5) Anxiety: (6) Abdominal aortic aneurysm (AAA) greater than 5.0 cm in diameter in female: Plan 74 y/o F w/ PMHx of HLD, HTN, CAD, Queen esophagus, and recent ureteral stent placement. She was admitted to the hospital from 03/22 - 03/26 due to left ureter herniation with severe hydronephrosis and had a left ureteral stent placed on 03/22. She was discharged to rehab at that time, but was sent back to the ED due to intractable bilateral lower quadrant abdominal pain. She was admitted for management of such. #Intractable lower abdominal pain - patient reports this feels similar to her prior episodes of colitis - CT A/P on admission notes possible rectosigmoid colitis - Asked on-call urologist to review the CT A/P images to see if her recent stent could be causing her pain - ureteral stent looks fine and is where it should be - UA with 2+ leukocyte esterase, no nitrates, no bacteria. Urine culture pending - Continue Ceftriaxone 1 g IV daily - Started Flagyl 500 mg IV Q8H to cover for possible colitis - Pain control with Tylenol, Morphine 2 mg IV Q4H PRN - Oxybutynin 5mg po BID as needed - Pyridium as needed #Hypokalemia - K=3.0 on admission. She was ordered 80 mEq PO in ED but patient only took 40 mEq and this was taken at 0600 - K on AM labs 3.1 but given she had just taken the potassium supplementation ordered in the ED, no further supplementation was ordered today - Trend BMP with AM labs #Anxiety/Mental Health - She is prescribed Xanax 0.25mg po TID as needed for anxiety at home. Per review of PDMP, it appears as though she takes this three times daily. She has significant anxiety currently and has not been given any doses of Xanax with it ordered PRN so it has been switched to scheduled - Continue Paroxetine 12.5mg po daily - Continue Trazodone 100mg po qHS #Hypertensionwell-controlled. Continue amlodipine 5 mg daily, carvedilol 3.125 mg BID #GERDcontinue Protonix 40mg po BID #AAACT A/P notes abdominal aorta is 5.1 cm. Will need to find out if she follows with a vascular surgeon outpatient, and if not she will need to be established with one for ongoing surveillance VTE PPx: Lovenox Dispo: Continued inpatient stay Discussed case with urology Sarah Valenzuela Scheduled Xanax Admission and Anticipated Discharge Date Admission Date: March 29, 2025 Supervising Physician Co-Signing Physician Notes HAYDEN Supervision Note: I did not personally see or examine the patient today, but I verified all olivarez points of HAYDEN Hendrickson's assessment and plan with the following exceptions/additions: None Subjective Patient seen and evaluated at bedside. She reports ongoing bilateral abdominal pain, right side worse than left side. She denies any nausea. She reports that this feels like her prior episodes of colitis. We discussed the result of her CT A/P and my discussion with the on-call urologist. We also discussed that I added another antibiotic to her regimen to cover for a colitis infection. She denies any further complaints or concerns at this time. Returned to bedside per patient's request. She was visibly upset, crying, anxious. She states "I know you're all talking about me out there." I informed Faith that I was talking with her RN about the current treatment plan, her current symptoms, and her request of a vanilla ice cream. I explained to her that no one is judging her or talking poorly about her, but rather we are working together with clear communication in order to make her feel better. Faith apologized for her outburst towards staff members. Emotional support provided throughout our conversation. I turned her TV on and turned the lights off and encouraged her to rest for now. She was more calm by the end of our encounter. Physical Exam Physical Exam: General: No acute distress, nondiaphoretic, frail elderly female. Skin: Warm, dry. No rashes or peripheral edema noted. Cardiac: Regular rate and rhythm without murmurs gallops or rubs. Pulm: Clear to auscultation bilaterally without wheezes, rales or rhonchi. Normal respiratory effort. 94% on room air. Abdominal: Soft, nondistended. Tender in lower quadrants bilaterally R>L. Voluntary guarding noted. No rebound tenderness. Bowel sounds active. Neuro: A&O x3. No focal neurological deficits. Results & Data Results & Data Vital Signs (Past 12 Hours) Vital Signs Temp Pulse Resp BP Pulse Ox O2 Del Method 03/30/25 08:45 Room Air 03/30/25 07:14 97.7 F 63 16 126/74 93 Room Air Laboratory Results Reviewed CBC, BMP, UA, urine culture PG Care Time/CCT Total # of Minutes Spent Total Time Spent with Patient: Total time spent is greater than 50% in coordination of care (as documented) at patient's floor/unit and/or counseling patient: Coding Level of Care Code 85540 SUB INP/OBS CARE 3/50MIN Diagnoses Intractable abdominal pain R10.9 Colitis K52.9 S/P ureteral stent placement Z96.0 Acute hypokalemia E87.6 Anxiety F41.9 Abdominal aortic aneurysm (AAA) greater than 5.0 cm in diameter in female I71.40
[2025-03-31 06:31] LABS: Hematocrit (blood only) 30.0 % (37.0-47.0); Hemoglobin 9.6 g/dL (12.0-16.0); Mean Corpuscular Hemoglobin 31.4 pg (25.0-34.0); Mean Corpuscular Volume 98.0 fL (80.0-100.0); Platelet Count 164 K/uL (130-400); RDW Standard Deviation 46.1 fL (36.4-46.3); Red Blood Count 3.06 M/uL (4.20-5.40); White Blood Count 4.03 K/ul (4.8-10.8)
[2025-03-31 06:57] LABS: Anion Gap 5.0 (3-11); Blood Urea Nitrogen 24.0 mg/dl (6-23); Calcium 8.7 mg/dl (8.6-10.3); Carbon Dioxide 31.0 mmol/L (21-32); Chloride 105.0 mmol/L (98-107); Creatinine Clr Calc Pharmacy 38.1 ml/min; Glucose 91.0 mg/dl (70-99(Fasting)); Potassium 4.0 mmol/L (3.5-5.1); Sodium 141.0 mmol/L (136-145)
[2025-03-31] MEDS: DOCUSATE SODIUM 100 MG CAP PO PRN (08:55)
[2025-03-31] MEDS: ACETAMINOPHEN 500 MG TAB PO PRN (08:56)
--- NOTE | 2025-03-31 14:58 | Hospitalist Progress Note ---
Date of Service March 31, 2025 Assessment & Plan (1) Intractable abdominal pain: (2) Colitis: (3) S/P ureteral stent placement: (4) Acute hypokalemia: (5) Anxiety: (6) Abdominal aortic aneurysm (AAA) greater than 5.0 cm in diameter in female: Plan 74 y/o F w/ PMHx of HLD, HTN, CAD, Queen esophagus, and recent ureteral stent placement. She was admitted to the hospital from 03/22 - 03/26 due to left ureter herniation with severe hydronephrosis and had a left ureteral stent placed on 03/22. She was discharged to rehab at that time, but was sent back to the ED due to intractable bilateral lower quadrant abdominal pain. She was admitted for management of such. #Intractable lower abdominal pain - patient reports this feels similar to her prior episodes of colitis. Improving - CT A/P on admission notes possible rectosigmoid colitis - Asked on-call urologist to review the CT A/P images to see if her recent stent could be causing her pain - ureteral stent looks fine and is where it should be - UA with 2+ leukocyte esterase, no nitrates, no bacteria. Urine culture with mixed probable skin ayala - Continue Ceftriaxone 1 g IV daily - Continue Flagyl 500 mg IV Q8H to cover for possible colitis - can likely switch to Q12H dosing on 04/01 after 48 hours of Q8H dosing - Pain control with Tylenol, Morphine 2 mg IV Q4H PRN - Oxybutynin 5mg po BID as needed - Pyridium as needed - PT/OT consulted #Hypokalemia - K=3.0 on arrival - repleted with PO supplementation and now WNL #Anxiety/Mental Health - She is prescribed Xanax 0.25mg po TID as needed for anxiety at home. Per review of PDMP, it appears as though she takes this three times daily. She had significant anxiety earlier and had not been given any doses of Xanax with it ordered PRN so it has been switched to scheduled - continue - Continue Paroxetine 12.5mg po daily - Continue Trazodone 100mg po qHS #Hypertensioncontinue amlodipine 5 mg daily, carvedilol 3.125 mg BID #GERDcontinue Protonix 40mg po BID #AAACT A/P notes abdominal aorta is 5.1 cm. Will need to find out if she follows with a vascular surgeon outpatient, and if not she will need to be established with one for ongoing surveillance VTE PPx: Lovenox Dispo: Pending PT/OT evaluations. Was sent in from [facility] Admission and Anticipated Discharge Date Admission Date: March 29, 2025 Supervising Physician Co-Signing Physician Notes HAYDEN Supervision Note: I did not personally see or examine the patient today, but I verified all olivarez points of HAYDEN Hendrickson's assessment and plan with the following excep tions/additions: None Subjective Patient seen and evaluated at bedside. She reports "I am feeling better today." She notes that she still has lower quadrant abdominal pain but it is more mild today. She denies any nausea. She did have a bowel movement today. She is tolerating her diet. PT/OT evaluations are still pending. No additional compl aints or concerns at this time. Physical Exam Physical Exam: General: No acute distress, nondiaphoretic, frail elderly female. Skin: Warm, dry. No rashes or peripheral edema noted. Cardiac: Regular rate and rhythm without murmurs gallops or rubs. Pulm: Clear to auscultation bilaterally without wheezes, rales or rhonchi. Normal respiratory effort. 94% on room air. Abdominal: Soft, nondistended. Tender in lower quadrants bilaterally R>L. No guarding rebound tenderness. Bowel sounds active. Neuro: A&O x3. No focal neurological deficits. Results & Data Results & Data Laboratory Results Reviewed CBC Reviewed BMP Reviewed urine culture PG Care Time/CCT Total # of Minutes Spent Total Time Spent with Patient: Total time spent is greater than 50% in coordination of care (as documented) at patient's floor/unit and/or counseling patient: Coding Level of Care Code 52826 SUB INP/OBS CARE 2/35MIN Diagnoses Intractable abdominal pain R10.9 Colitis K52.9 S/P ureteral stent placement Z96.0 Acute hypokalemia E87.6 Anxiety F41.9 Abdominal aortic aneurysm (AAA) greater than 5.0 cm in diameter in female I71.40
[2025-04-01 07:40] LABS: Hematocrit (blood only) 30.1 % (37.0-47.0); Hemoglobin 9.9 g/dL (12.0-16.0); Mean Corpuscular Hemoglobin 31.1 pg (25.0-34.0); Mean Corpuscular Volume 94.7 fL (80.0-100.0); Platelet Count 171 K/uL (130-400); RDW Standard Deviation 44.1 fL (36.4-46.3); Red Blood Count 3.18 M/uL (4.20-5.40); White Blood Count 4.89 K/ul (4.8-10.8)
[2025-04-01 07:57] LABS: Anion Gap 6.0 (3-11); Blood Urea Nitrogen 25.0 mg/dl (6-23); Calcium 8.7 mg/dl (8.6-10.3); Carbon Dioxide 31.0 mmol/L (21-32); Chloride 104.0 mmol/L (98-107); Creatinine Clr Calc Pharmacy 37.3 ml/min; Glucose 93.0 mg/dl (70-99(Fasting)); Potassium 3.6 mmol/L (3.5-5.1); Sodium 141.0 mmol/L (136-145)
[2025-04-01] MEDS: HEPARIN SOD 5,000 UNIT/0.5 ML VIAL SC SCH (08:11)
--- NOTE | 2025-04-01 11:34 | Hospitalist Progress Note ---
"Date of Service April 01, 2025 Assessment & Plan (1) Intractable abdominal pain: (2) Colitis: (3) S/P ureteral stent placement: (4) Acute hypokalemia: (5) Anxiety: (6) Abdominal aortic aneurysm (AAA) greater than 5.0 cm in diameter in female: Plan 74 y/o F w/ PMHx of HLD, HTN, CAD, Queen esophagus, and recent ureteral stent placement. She was admitted to the hospital from 03/22 - 03/26 due to left ureter herniation with severe hydronephrosis and had a left ureteral stent placed on 03/22. She was discharged to rehab at that time, but was sent back to the ED due to intractable bilateral lower quadrant abdominal pain. She was admitted for management of such. #Intractable lower abdominal pain - pt reports this feels similar to previous episode of colitis; patient reports this feels similar to her prior episodes of colitis. Improving - CT A/P on admission notes possible rectosigmoid colitis - Asked on-call urologist to review the CT A/P images to see if her recent stent could be causing her pain - ureteral stent looks fine and is where it should be - UA with 2+ leukocyte esterase, no nitrates, no bacteria. Urine culture with mixed probable skin ayala - Continue Ceftriaxone 1 g IV daily - Continue Flagyl 500 mg IV Q8H to cover for possible colitis - can likely switch to Q12H dosing on 04/01 after 48 hours of Q8H dosing - Pain control with Tylenol, Morphine 2 mg IV Q4H PRN - Oxybutynin 5mg po BID as needed - Pyridium as needed - PT/OT consulted #Hypokalemia | Hypocalcemia - K=3.0 on arrival - repleted with PO supplementation and now WNL -Trend BMPs -Trend Calcium #Anxiety/Mental Health - She is prescribed Xanax 0.25mg po TID as needed for anxiety at home. Per review of PDMP, it appears as though she takes this three times daily. She had significant anxiety earlier and had not been given any doses of Xanax with it ordered PRN so it has been switched to scheduled - continue - Continue Paroxetine 12.5mg po daily - Continue Trazodone 100mg po qHS #Hypertensioncontinue amlodipine 5 mg daily, carvedilol 3.125 mg BID #GERDcontinue Protonix 40mg po BID #AAA CT A/P notes abdominal aorta is 5.1 cm; Pt does not follow w/ Vascular surgeon, will need established -Discussed w/ television installer radiologist who recommends CTAP w/ and w/out contrast to assess VTE PPx: Lovenox Dispo: Pending PT/OT evaluations. Was sent in from [facility] Admission and Anticipated Discharge Date Admission Date: March 31, 2025 Subjective Pt is laying in bed today in NAD, in a pleasant mood. Pt notes that her abd pain doesn't ever go fully away and she is unsure why. She notes that the pain has improved upon admission. Pt denies any cough, congestion, sore throat, SOB, CP, palpitations, worsening abd pain, N/V/D or changes in appetite. Review of Systems Review of Systems: All systems reviewed & are unremarkable except as noted in Subjective Physical Exam Physical Exam: General: Pt is a 74 y/o malnourished F in NAD in bed. VS: reviewed - unremarkable Skin: Warm and dry; no lesions or ulcerations Respiratory: CTA bilat, no adventitious sounds noted. Chest expansion is full and symmetrical Cardio: RRR no murmurs Abdomen: Round, normoactive BS x4, diffusely tender to palpation : Pt w/out flank pain MSK: FROM of extremities, no deformities Extremities: no edema Neuro: A&Ox4, cooperative Results & Data Results & Data Vital Signs (Past 12 Hours) Vital Signs Temp Pulse Resp BP Pulse Ox O2 Del Method 04/01/25 07:47 98.6 F 69 18 140/79 93 Room Air Laboratory Results Reviewed: CBC, BMP, Calcium PG Care Time/CCT Total # of Minutes Spent Total Time Spent with Patient: Total time spent is greater than 50% in coordination of care (as documented) at patient's floor/unit and/or counseling patient: Coding Level of Care Code 97396 SUB INP/OBS CARE 2/35MIN Diagnoses Intractable abdominal pain R10.9 Colitis K52.9 S/P ureteral stent placement Z96.0 Acute hypokalemia E87.6 Anxiety F41.9 Abdominal aortic aneurysm (AAA) greater than 5.0 cm in diameter in female I71.40"
[2025-04-01] MEDS: FLUTICASONE PROPIONATE NA SPR 16 GM BTL PRN (18:23)
[2025-04-01] MEDS: OPTIRAY 320 100ml IV ONE (21:09)
--- NOTE | 2025-04-02 00:34 | CT Scan Report ---
Exam(s): CT ABDOMEN + PELVIS W/WO Contrast IV Amt: 93 ML [id number] EXAM: CT Abdomen and Pelvis Without and With Intravenous Contrast CLINICAL HISTORY: Reason for exam: Assess AAA. TECHNIQUE: Axial computed tomography images of the abdomen and pelvis without and with intravenous contrast. Automated exposure control was utilized for the study. A dose lowering technique was utilized adhering to the principles of ALARA. CONTRAST: Patient received 93 ML [id number] of IV contrast COMPARISON: 03/29/2025 FINDINGS: Lung bases: Unremarkable. No mass. No consolidation. Pleural space: Trace left pleural effusion. ABDOMEN: Liver: Unremarkable. No mass. Gallbladder and bile ducts: Unremarkable. No calcified stones. No ductal dilation. Pancreas: Unremarkable. No mass. No ductal dilation. Spleen: Unremarkable. No splenomegaly. Adrenals: Unremarkable. No mass. Kidneys and ureters: Internalized left ureteral stent without evidence of hydroureteronephrosis. Stomach and bowel: Unremarkable. No obstruction. No mucosal thickening. PELVIS: Appendix: No findings to suggest acute appendicitis. Bladder: Unremarkable. No mass. No stones. Reproductive: Unremarkable as visualized. ABDOMEN and PELVIS: Intraperitoneal space: Unremarkable. No free air. No significant fluid collection. Bones/joints: No acute fracture. No dislocation. Soft tissues: Unremarkable. Vasculature: Distal thoracic aortic aneurysm measuring 4.4 cm. Diffuse vascular calcifications of the abdominal aorta. Lymph nodes: Unremarkable. No enlarged lymph nodes. IMPRESSION: Trace left pleural effusion. Distal thoracic aortic aneurysm measuring 4.4 cm Electronically signed by: Sumeet Orellana MD 04/02/25 00:33 AM
[2025-04-02 08:22] LABS: Hematocrit (blood only) 31.7 % (37.0-47.0); Hemoglobin 10.7 g/dL (12.0-16.0); Immature Granulocytes # (auto) 0.00 K/uL (0.01-0.20); Immature Granulocytes % (auto) 0.0 %; Mean Corpuscular Hemoglobin 31.8 pg (25.0-34.0); Mean Corpuscular Volume 94.1 fL (80.0-100.0); Platelet Count 187 K/uL (130-400); RDW Standard Deviation 43.8 fL (36.4-46.3); Red Blood Count 3.37 M/uL (4.20-5.40); White Blood Count 4.85 K/ul (4.8-10.8)
[2025-04-02 08:42] LABS: Anion Gap 6.0 (3-11); Blood Urea Nitrogen 22.0 mg/dl (6-23); Calcium 8.9 mg/dl (8.6-10.3); Carbon Dioxide 30.0 mmol/L (21-32); Chloride 104.0 mmol/L (98-107); Creatinine Clr Calc Pharmacy 40.7 ml/min; Glucose 96.0 mg/dl (70-99(Fasting)); Potassium 3.6 mmol/L (3.5-5.1); Sodium 140.0 mmol/L (136-145)
--- NOTE | 2025-04-02 09:45 | Hospitalist Progress Note ---
"Date of Service April 02, 2025 Assessment & Plan (1) Intractable abdominal pain: (2) Colitis: (3) S/P ureteral stent placement: (4) Acute hypokalemia: (5) Anxiety: (6) Abdominal aortic aneurysm (AAA) greater than 5.0 cm in diameter in female: Plan 74 y/o F w/ PMHx of HLD, HTN, CAD, Queen esophagus, and recent ureteral stent placement. She was admitted to the hospital from 03/22 - 03/26 due to left ureter herniation with severe hydronephrosis and had a left ureteral stent placed on 03/22. She was discharged to rehab at that time, but was sent back to the ED due to intractable bilateral lower quadrant abdominal pain. She was admitted for management of such. #Intractable lower abdominal pain - pt reports this feels similar to previous episode of colitis; CTAP on admission suggestive of rectosigmoid colitis - Urology commented that ureteral stent is appropriately placed - UA with 2+ leukocyte esterase, no nitrates, no bacteria. Urine culture with mixed probable skin ayala - Continue Ceftriaxone 1 g IV daily - Discontinue IV Flagyl and Start PO Flagyl - Pain control with Tylenol, Morphine 2 mg IV Q4H PRN - Oxybutynin 5mg po BID as needed - Pyridium as needed - PT/OT consulted #AAA CT A/P notes abdominal aorta is 5.1 cm; Pt does not follow w/ Vascular surgeon, will need established -CTAP w/wo contrast notes presence of Thoracic aneurysm in addition to AAA; will message Vascular in AM for recs #Hypokalemia | Hypocalcemia - K=3.0 on arrival - repleted with PO supplementation and now WNL -Trend BMPs -Trend Calcium #Anxiety | Insomnia - -Continue Xanax TID KEELY - Prn outpt, was having significant anxiety inpt and was switched to keely while inhouse -Continue Paroxetine 12.5mg po daily -Continue Trazodone 100mg po qHS #Hypertensioncontinue amlodipine 5 mg daily, carvedilol 3.125 mg BID #GERDcontinue Protonix 40mg po BID VTE PPx: Lovenox Dispo: Med/Surg - awaiting improvement of pain + safe dispo Admission and Anticipated Discharge Date Admission Date: March 31, 2025 Subjective Pt was laying in bed today in NAD. She notes that she is feeling tired after receiving her pain pill. Pt notes that she continues to have abdominal tenderness but continues to deny decreased appetite, N/V/D. Pt is otherwise without cough, congestion, SOB, CP, and palpitations. Pt denied sore throat but later nurse messaged me asking for cough drops. Review of Systems Review of Systems: All systems reviewed & are unremarkable except as noted in Subjective Physical Exam Physical Exam: General: Pt is a 74 y/o malnourished F in NAD in bed. VS: reviewed - unremarkable Skin: Warm and dry; no lesions or ulcerations Respiratory: CTA bilat, no adventitious sounds noted. Chest expansion is full and symmetrical Cardio: RRR no murmurs Abdomen: Round, normoactive BS x4, tenderness centralized on pt : Pt w/out flank pain MSK: FROM of extremities, no deformities Extremities: no edema Neuro: A&Ox4, cooperative Results & Data Results & Data Vital Signs (Past 12 Hours) Vital Signs Temp Pulse Resp BP BP Pulse Ox O2 Del Method 04/02/25 07:04 98.6 F 74 16 157/81 H 93 Room Air 04/01/25 22:43 98.2 F 62 16 155/75 H 95 Room Air Laboratory Results Reviewed: CBC, BMP PG Care Time/CCT Total # of Minutes Spent Total Time Spent with Patient: Total time spent is greater than 50% in coordination of care (as documented) at patient's floor/unit and/or counseling patient: Coding Level of Care Code 47070 SUB INP/OBS CARE 2/35MIN Diagnoses Intractable abdominal pain R10.9 Colitis K52.9 S/P ureteral stent placement Z96.0 Acute hypokalemia E87.6 Anxiety F41.9 Abdominal aortic aneurysm (AAA) greater than 5.0 cm in diameter in female I71.40"
[2025-04-02] MEDS: ONDANSETRON INJ 2 MG/ML 2 ML VIAL IV PRN (11:26)
[2025-04-02] MEDS: COUGH DROP (SUGAR FREE) LOZ 24 LOZ/1 BOX BUCCAL PRN (13:06)
[2025-04-02] MEDS: metroNIDAZOLE 500 MG TAB PO SCH (20:31)
[2025-04-03 08:11] LABS: Hematocrit (blood only) 31.0 % (37.0-47.0); Hemoglobin 10.1 g/dL (12.0-16.0); Immature Granulocytes # (auto) 0.01 K/uL (0.01-0.20); Immature Granulocytes % (auto) 0.2 %; Mean Corpuscular Hemoglobin 31.3 pg (25.0-34.0); Mean Corpuscular Volume 96.0 fL (80.0-100.0); Platelet Count 181 K/uL (130-400); RDW Standard Deviation 44.6 fL (36.4-46.3); Red Blood Count 3.23 M/uL (4.20-5.40); White Blood Count 5.35 K/ul (4.8-10.8)
[2025-04-03 09:09] LABS: Anion Gap 6.0 (3-11); Blood Urea Nitrogen 25.0 mg/dl (6-23); Calcium 8.6 mg/dl (8.6-10.3); Carbon Dioxide 30.0 mmol/L (21-32); Chloride 104.0 mmol/L (98-107); Creatinine Clr Calc Pharmacy 37.3 ml/min; Glucose 91.0 mg/dl (70-99(Fasting)); Potassium 3.7 mmol/L (3.5-5.1); Sodium 140.0 mmol/L (136-145)
--- NOTE | 2025-04-03 19:40 | Hospitalist Progress Note ---
"Date of Service April 03, 2025 Assessment & Plan (1) Intractable abdominal pain: (2) Colitis: (3) S/P ureteral stent placement: (4) Acute hypokalemia: (5) Anxiety: (6) Abdominal aortic aneurysm (AAA) greater than 5.0 cm in diameter in female: Plan 74 y/o F w/ PMHx of HLD, HTN, CAD, Queen esophagus, and recent ureteral stent placement. She was admitted to the hospital from 03/22 - 03/26 due to left ureter herniation with severe hydronephrosis and had a left ureteral stent placed on 03/22. She was discharged to rehab at that time, but was sent back to the ED due to intractable bilateral lower quadrant abdominal pain. She was admitted for management of such. #Intractable lower abdominal pain - pt reports this feels similar to previous episode of colitis; CTAP on admission suggestive of rectosigmoid colitis - Urology commented that ureteral stent is appropriately placed - UA with 2+ leukocyte esterase, no nitrates, no bacteria. Urine culture with mixed probable skin ayala - Continue Ceftriaxone 1 g IV daily - Continue PO Flagyl - Pain control with Tylenol, Morphine 2 mg IV Q4H PRN - Oxybutynin 5mg po BID as needed - Pyridium as needed - PT/OT consulted #AAA | Thoracic Aneurysm CT A/P notes abdominal aorta is 5.1 cm; CT w/wo contrast 04/01 w/ distal thoracic aortic aneurysm measuring 4.4cm; Pt does not follow w/ Vascular surgeon, will need established -Messaged Dr Sumner w/ Vascular team who recommends following up w/ radiology again to have them review imaging more closely #Hypokalemia | Hypocalcemia - K=3.0 on arrival - repleted with PO supplementation and now WNL -Trend BMPs -Trend Calcium #Anxiety | Insomnia - no acute concerns -Continue Xanax TID KEELY - Prn outpt, was having significant anxiety inpt and was switched to keely while inhouse -Continue Paroxetine 12.5mg po daily -Continue Trazodone 100mg po qHS #Hypertensioncontinue amlodipine 5 mg daily, carvedilol 3.125 mg BID #GERD Pt noted some GI upset -Continue Protonix 40mg po BID -Start Famotidine VTE PPx: Lovenox Dispo: Med/Surg - awaiting pain improvement + placement/safe dispo Admission and Anticipated Discharge Date Admission Date: March 31, 2025 Subjective Pt was laying in bed today in [facility]. She notes that she still has some mild abdominal pain but denies any increasing pain, N/V/D, or dizziness. Pt also denies cough, congestion, sore throat, SOB, CP and palpitations. Pt notes that she discontinued the hold on her bed at [facility] because she was unable to afford the $500 per/day hold. Review of Systems Review of Systems: All systems reviewed & are unremarkable except as noted in Subjective Physical Exam Physical Exam: General: Pt is a 74 y/o malnourished F in NAD in bed. VS: reviewed - unremarkable Skin: Warm and dry; no lesions or ulcerations Respiratory: CTA bilat, no adventitious sounds noted. Chest expansion is full and symmetrical Cardio: RRR no murmurs Abdomen: Round, normoactive BS x4, tenderness centralized on pt : Pt w/out flank pain MSK: FROM of extremities, no deformities Extremities: no edema Neuro: A&Ox4, cooperative Results & Data Results & Data Vital Signs (Past 12 Hours) Vital Signs Temp Pulse Resp BP Pulse Ox O2 Del Method 04/03/25 15:27 98.8 F 66 16 105/60 97 Room Air Laboratory Results Reviewed: CBC, BMP PG Care Time/CCT Total # of Minutes Spent Total Time Spent with Patient: Total time spent is greater than 50% in coordination of care (as documented) at patient's floor/unit and/or counseling patient: Coding Level of Care Code 62607 SUB INP/OBS CARE 2/35MIN Diagnoses Intractable abdominal pain R10.9 Colitis K52.9 S/P ureteral stent placement Z96.0 Acute hypokalemia E87.6 Anxiety F41.9 Abdominal aortic aneurysm (AAA) greater than 5.0 cm in diameter in female I71.40"
[2025-04-03] MEDS: FAMOTIDINE 10 MG TABLET PO SCH (20:44)
[2025-04-04 06:04] LABS: Hematocrit (blood only) 28.9 % (37.0-47.0); Hemoglobin 9.4 g/dL (12.0-16.0); Immature Granulocytes # (auto) 0.01 K/uL (0.01-0.20); Immature Granulocytes % (auto) 0.2 %; Mean Corpuscular Hemoglobin 31.0 pg (25.0-34.0); Mean Corpuscular Volume 95.4 fL (80.0-100.0); Platelet Count 169 K/uL (130-400); RDW Standard Deviation 44.4 fL (36.4-46.3); Red Blood Count 3.03 M/uL (4.20-5.40); White Blood Count 5.49 K/ul (4.8-10.8)
[2025-04-04 06:25] LABS: Anion Gap 6.0 (3-11); Blood Urea Nitrogen 24.0 mg/dl (6-23); Calcium 8.6 mg/dl (8.6-10.3); Carbon Dioxide 30.0 mmol/L (21-32); Chloride 104.0 mmol/L (98-107); Creatinine Clr Calc Pharmacy 38.5 ml/min; Glucose 94.0 mg/dl (70-99(Fasting)); Potassium 3.4 mmol/L (3.5-5.1); Sodium 140.0 mmol/L (136-145)
[2025-04-04] MEDS: POTASSIUM CHLORIDE CRTAB 20 MEQ TABCR PO STA (10:17)
--- NOTE | 2025-04-04 13:21 | Hospitalist Progress Note ---
"Date of Service April 04, 2025 Assessment & Plan (1) Intractable abdominal pain: (2) Colitis: (3) S/P ureteral stent placement: (4) Acute hypokalemia: (5) Anxiety: (6) Abdominal aortic aneurysm (AAA) greater than 5.0 cm in diameter in female: Plan 74 y/o F w/ PMHx of HLD, HTN, CAD, Queen esophagus, and recent ureteral stent placement. She was admitted to the hospital from 03/22 - 03/26 due to left ureter herniation with severe hydronephrosis and had a left ureteral stent placed on 03/22. She was discharged to rehab at that time, but was sent back to the ED due to intractable bilateral lower quadrant abdominal pain. She was admitted for management of such. #Intractable lower abdominal pain - pt reports this feels similar to previous episode of colitis; CTAP on admission suggestive of rectosigmoid colitis. Urology commented that ureteral stent is appropriately placed - Urine culture with mixed probable skin ayala - Completed 5 day course of IV Ceftriaxone 04/03 - Continue PO Flagyl - Pain control with Tylenol. Morphine now discontinued - Oxybutynin 5mg po BID as needed - Pyridium as needed - PT/OT currently recommending acute rehab #AAA | Thoracic Aneurysm CT A/P notes abdominal aorta is 5.1 cm; CT w/wo contrast 04/01 w/ distal thoracic aortic aneurysm measuring 4.4cm - Patient does not follow with vascular surgeon outpatient, will need referral on discharge - Prior provider discussed findings with Dr. Sumner of the vascular surgery team who recommends following up with radiology again to have them review imaging more closely #Hypokalemia - K=3.0 on arrival - repleted with PO supplementation - K mildly low at 3.4 - repleted with KCl 20 mEq x 1 - Trend BMP with AM labs #Anxiety | Insomnia - no acute concerns - Continue Xanax TID KEELY - prescribed as PRN in outpatient setting but patient takes it TID. She was having significant anxiety during her hospitalization, but was not given any doses of Xanax so the order was changed to scheduled. Her anxiety has been much more controlled since this change - continue - Continue Paroxetine 12.5mg po daily, Trazodone 100mg po qHS #Hypertensioncontinue amlodipine 5 mg daily, carvedilol 3.125 mg BID #GERD Pt noted some GI upset -Continue Protonix 40mg po BID -Start Famotidine VTE PPx: Lovenox Dispo: PT/OT recommending rehab. Patient is hopeful she could return home. SNF auth pending Repleted potassium Discontinued morphine Admission and Anticipated Discharge Date Admission Date: March 31, 2025 Subjective Patient seen and evaluated at bedside. She reports that she has ongoing mild abdominal pain, but this is improved compared to prior in her stay. She has intermittent nausea chronically. She reports the famotidine has helped with this. She has not had any vomiting today but reports one episode of yellow emesis yesterday. She believes her bowels have normalized from her alternating diarrhea/constipation, now with normal stools. No additional complaints or concerns at this time. Physical Exam Physical Exam: General: No acute distress, nondiaphoretic, frail elderly female. Skin: Warm, dry. No rashes or peripheral edema noted. Cardiac: Well-perfused. Rate in 60s. Pulm: ormal respiratory effort. 95% on room air. Abdominal: Soft, nondistended. Mild tenderness to palpation of lower quadrants bilaterally.. No guarding rebound tenderness. Bowel sounds active. Neuro: A&O x3. No focal neurological deficits. Results & Data Results & Data Vital Signs (Past 12 Hours) Vital Signs Temp Pulse Resp BP Pulse Ox O2 Del Method 04/04/25 09:16 98.1 F 67 16 150/75 H 97 Room Air 04/04/25 08:15 Room Air Laboratory Results Reviewed CBC with differential, BMP PG Care Time/CCT Total # of Minutes Spent Total Time Spent with Patient: Total time spent is greater than 50% in coordination of care (as documented) at patient's floor/unit and/or counseling patient: Coding Level of Care Code 96071 SUB INP/OBS CARE 3/50MIN Diagnoses Intractable abdominal pain R10.9 Colitis K52.9 S/P ureteral stent placement Z96.0 Acute hypokalemia E87.6 Anxiety F41.9 Abdominal aortic aneurysm (AAA) greater than 5.0 cm in diameter in female I71.40"
[2025-04-05 07:42] VITALS: RESP 19; TEMP 98.2; O2SAT 93
[2025-04-05 08:04] LABS: Anion Gap 7.0 (3-11); Blood Urea Nitrogen 20.0 mg/dl (6-23); Calcium 8.6 mg/dl (8.6-10.3); Carbon Dioxide 29.0 mmol/L (21-32); Chloride 105.0 mmol/L (98-107); Creatinine Clr Calc Pharmacy 40.2 ml/min; Glucose 89.0 mg/dl (70-99(Fasting)); Potassium 3.6 mmol/L (3.5-5.1); Sodium 141.0 mmol/L (136-145)
--- NOTE | 2025-04-05 11:20 | Discharge Summary ---
"Discharge Summary Date of Service April 05, 2025 Principal Dx & Hospital Course #1 = Principal Diagnosis (1) Intractable abdominal pain: (2) Colitis: (3) S/P ureteral stent placement: (4) Acute hypokalemia: (5) Anxiety: (6) Abdominal aortic aneurysm (AAA) greater than 5.0 cm in diameter in female: Plan 74 y/o F w/ PMHx of HLD, HTN, CAD, Queen esophagus, and recent ureteral stent placement. She was admitted to the hospital from 03/22 - 03/26 due to left ureter herniation with severe hydronephrosis and had a left ureteral stent placed on 03/22. She was discharged to rehab at that time, but was sent back to the ED due to intractable bilateral lower quadrant abdominal pain. She was admitted for management of such. #Intractable lower abdominal pain - pt reports this feels similar to previous episode of colitis; CTAP on admission suggestive of rectosigmoid colitis. Urology commented that ureteral stent is appropriately placed - Urine culture with mixed probable skin ayala - Completed 5 day course of IV Ceftriaxone 04/03 - Continue PO Flagyl 500 mg BID through 04/08 to complete 10 day course - Pain control with Tylenol - PT/OT recommended acute rehab #AAA | Thoracic Aneurysm - CT A/P notes abdominal aorta is 5.1 cm - CT w/wo contrast 04/01 with distal thoracic aortic aneurysm measuring 4.4cm - Patient does not follow with vascular surgeon outpatient, will need referral on discharge. Message sent to per assessment nurse on discharge asking her to make this referral #Hypokalemia - K=3.0 on arrival - repleted with PO supplementation - K mildly low again at 3.4 - repleted and augmented appropriately, remains WNL #Anxiety | Insomnia - no acute concerns - Continue Xanax TID KEELY - prescribed as PRN in outpatient setting but patient takes it TID. She was having significant anxiety during her hospitalization, but was not given any doses of Xanax so the order was changed to scheduled. Her anxiety has been much more controlled since this change - continue - Continue Paroxetine 12.5mg po daily, Trazodone 100mg po qHS #Hypertensioncontinue amlodipine 5 mg daily, carvedilol 3.125 mg BID #GERD Pt noted some GI upset - Continue Protonix 40mg po BID - Started Famotidine 10 mg BID - continue VTE PPx: Lovenox Dispo: Discharged to [facility] 04/05 Notes For Next Care Provider Recommend establishing with vascular surgeon in outpatient setting for 5.1 cm abdominal aorta and 4.4 cm distal thoracic aortic aneurysm Medication Changes From Visit Flagyl 500 mg BID through 04/08 Famotidine 10 mg BID Admission HPI Per Admitting Provider Faith Chavis is a 74yo female with history of HTN, HLP, CAD presenting with lower abdominal pain and back pain. Patient was recently admitted to [facility] from 03/24-03/26/2025 after presenting with left flank pain, nausea and vomiting. She was found to have herniation of the left ureter into the left sciatic foramen resulting in severe left hydroureteronephrosis with delayed nephrographic and extensive perinephric/left upper quadrant fluid. She was evaluated by Urology and had a cystoscopy with stent placement performed by Dr. Quiroz on 03/22/2025. Her stent is to remain in place for 2-4 weeks and she is to followup with outpatient Urology. Patient returns to the ER today after being in [facility] for three days with lower abdominal discomfort - severe 9/10, bandlike across her lower abdomen, slightly worse on the right side compared to left. She feels that she is having bladder spasms on occasion as well. She has been having occasional nausea associated with her pain. No fever, chills, chest pain, cough, SOB. Ongoing hematuria since having the stent placed No additional complaints at this time. In the ER she is afebrile, HD stable Agitated at times ER Course: Fentanyl 50mcg IV Morphine 4mg IV + 2mg IV NSS x 1L Zofran 4mg IV Ceftriaxone 2gm IV Discharge Exam General: No acute distress, nondiaphoretic, frail elderly female. Skin: Warm, dry. No rashes or peripheral edema noted. Cardiac: Well-perfused. Rate in 60s. Pulm: ormal respiratory effort. 93% on room air. Abdominal: Soft, nondistended, nontender. No guarding rebound tenderness. Bowel sounds active. Neuro: A&O x3. No focal neurological deficits. Discharge Plan Discharge Items Patient Disposition: Transfer Long-Term Fac Reason For Visit: LOWER ABDOMINAL PAIN Discharge Diagnosis: Rectosigmoid colitis Condition on Discharge: Fair Activity: Resume your previous activity Non-emergency contact: Primary Care Provider Call non-emergency contact if: you have any medication questions and your symptoms worsen Follow-up/Referrals: Gurpreet Lo III, MD [Primary Care Provider] - (Follow-up in 1-2 weeks) Diet: Regular Addtl Attending Provider Instructions: Jose Cuevas were admitted to the hospital with lower abdominal pain. The CT scan of y our abdomen/pelvis was suggestive of rectosigmoid colitis. Urology confirmed that your abdominal pain was not due to the ureteral stent that you recently had placed, as they reviewed the images and your stent is still in the proper location. You were treated with IV antibiotics while hospitalized, and will continue on oral antibiotics for a few more days to complete your course. Additionally, the CT scan noted an enlarged abdominal aorta measuring 5.1 cm. You were evaluated by PT and OT who recommended your return to short term rehab. You are being discharged back to [facility] for continued rehab. Upon discharge from the hospital: * Take Flagyl 500 mg twice daily through 04/08/25. This will complete your antibiotic course for your rectosigmoid colitis. You only need to take your evening dose tonight, as you had your morning dose in the hospital. * Take famotidine 10 mg twice daily. This will help your abdominal pain. * Continue your other medications as prescribed. * I recommend that you establish with a vascular surgeon for surveillance of your abdominal aortic aneurysm. I have asked my navigator to make this referral on your behalf. * Follow-up with your PCP in 1-2 weeks. Please return to the hospital if you experience any of the following: Chest pain, difficulty breathing, inability to tolerate oral intake, passing out, new or worsening confusion, or any other symptoms concerning for you. It was a pleasure taking care of you while you were in the hospital! Pending Studies at Discharge: No Stand-Alone Forms: My [facility] [employer] Skilled Items Patient informed of condition?: Yes DNR: Yes Discharge Level of Care: Skilled Communicable Disease: No Discharge Prognosis: Stable Lines: None Urinary Catheter: No Medications and DC Order Prescriptions: New famotidine 10 mg Tablet 10 mg PO BID Qty: 30 0RF metronidazole 500 mg Tablet 500 mg PO BID Qty: 7 0RF Continued albuterol sulfate 90 mcg/actuation HFA aerosol inhaler 2 puff INHALATION Q6H PRN (Reason: Shortness Of Breath Or Wheezing) alprazolam 0.25 mg tablet 0.25 mg PO TID PRN (Reason: anxiety ) paroxetine HCl 12.5 mg tablet extended release 24 hr 12.5 mg PO QAM carvedilol 3.125 mg tablet 3.125 mg PO AMHS aspirin 81 mg Tablet,Chewable 81 mg PO QAM oxycodone 5 mg Tablet 5 mg PO Q4H PRN (Reason: pain) Qty: 10 0RF polyethylene glycol 3350 [Miralax] 17 gram Powder In Packet 17 g PO DAILY PRN (Reason: constipation) Qty: 30 0RF fluticasone propionate 50 mcg/actuation Duarte,Suspension 2 spray NA DAILY PRN (Reason: Nasal congestion) Qty: 16 0RF docusate sodium 100 mg Capsule 100 mg PO BID PRN (Reason: Constipation) Qty: 30 0RF rosuvastatin 20 mg tablet 20 mg PO QAM amlodipine 5 mg tablet 5 mg PO QAM Hold Instructions: Resume on 03/05/25. Discuss resuming with PCP Rx Instructions: HAS PREVIOUSLY BEEN ON HOLD, UNSURE IF STILL TAKING THIS MED. trazodone 50 mg Tablet 50 mg PO HS PRN (Reason: Sleep) acetaminophen [Tylenol Extra Strength] 500 mg tablet 500 mg PO Q4H PRN (Reason: PAIN/FEVER) pantoprazole 40 mg tablet,delayed release (DR/EC) 40 mg PO BID Discharge Orders: Discharge Order (Routine); Ordered 04/05/25 Ordered By: Yudelka Hendrickson Admission Data Admit Date/Time: 03/31/25 14:56 Attending Provider: Gurpreet Tee Admit Provider: Darlene Rojas Primary Care Provider: Gurperet Lo III Other Providers: Darlene Rojas; [facility] Hospital Stay Data Consultations 03/29/25 19:33 ED Decision to Admit Stat Diagnostic Imagining Performed Abdomen/Pelvis CT 03/29/25 15:09 CT ABDOMEN and PELVIS with INTRAVENOUS CONTRAST HISTORY: Abdominal pain TECHNIQUE: CT abdomen and pelvis with contrast. IV CONTRAST: 100 mL of OMNIPAQUE 300 ENTERIC CONTRAST: Not Given COMPARISON: FINDINGS: LOWER CHEST: Unchanged cardiomegaly with coronary valvular calcifications. Emphysema. Trace left pleural fluid has decreased from previous LIVER: No focal lesion identified. Hepatomegaly. Scattered subcentimeter hypodensities are unchanged into smaller characterize but likely represent cysts or hemangiomas. GALLBLADDER/BILIARY: Unremarkable gallbladder. No abnormal biliary dilatation. SPLEEN: Unremarkable. PANCREAS: Unremarkable. ADRENALS: Unremarkable. KIDNEYS: Interval placement of an internalized left ureteral stent with improved hydroureteronephrosis. Mild left-sided hydronephrosis remains. The distal segment of the ureteral stent is seen within the lumen of the urinary bladder. The segment that is intraluminal within the urinary bladder measures 2.3 cm in length and the expected loop configuration of the stent is not seen. No urolithiasis, hydronephrosis or hydroureter involving the right sided urinary system. PERITONEUM/RETROPERITONEUM. No lymphadenopathy by size criteria. Multifocal aneurysmal changes of the abdominal aorta measuring up to 5.1 cm, largest at the aortic hiatus. GASTROINTESTINAL: No obstruction. Redemonstrate postsurgical changes of right hemicolectomy with ileocolic acidosis. Colonic diverticulosis without evidence of diverticulitis. Long segment wall thickening of the rectosigmoid. Long-segment wall thickening of the rectosigmoid may represent colitis. REPRODUCTIVE: URINARY BLADDER: Inflammatory changes wall thickening. There are scattered foci of intraluminal air. BONES: No acute findings. IMPRESSION: Interval placement of an internalized left ureteral stent with improved hydroureteronephrosis. Mild left-sided hydronephrosis remains. The distal segment of the ureteral stent is seen within the lumen of the urinary bladder. The segment that is intraluminal within the urinary bladder measures 2.3 cm in length and the expected loop configuration of the stent is not seen. Please clinically correlate Inflammatory changes of the urinary bladder may be due to cystitis. Small intraluminal foci of gas are seen in the urinary bladder. This may be due to recent instrumentation or procedure. Recommend clinical correlation. Long-segment wall thickening of the rectosigmoid may represent colitis. Electronically signed by Km Torrez 03-29-2025 6:59 PM Abdomen/Pelvis CT 04/01/25 19:33 Exam(s): CT ABDOMEN + PELVIS W/WO Contrast IV Amt: 93 ML [id number] EXAM: CT Abdomen and Pelvis Without and With Intravenous Contrast CLINICAL HISTORY: Reason for exam: Assess AAA. TECHNIQUE: Axial computed tomography images of the abdomen and pelvis without and with intravenous contrast. Automated exposure control was utilized for the study. A dose lowering technique was utilized adhering to the principles of ALARA. CONTRAST: Patient received 93 ML [id number] of IV contrast COMPARISON: 03/29/2025 FINDINGS: Lung bases: Unremarkable. No mass. No consolidation. Pleural space: Trace left pleural effusion. ABDOMEN: Liver: Unremarkable. No mass. Gallbladder and bile ducts: Unremarkable. No calcified stones. No ductal dilation. Pancreas: Unremarkable. No mass. No ductal dilation. Spleen: Unremarkable. No splenomegaly. Adrenals: Unremarkable. No mass. Kidneys and ureters: Internalized left ureteral stent without evidence of hydroureteronephrosis. Stomach and bowel: Unremarkable. No obstruction. No mucosal thickening. PELVIS: Appendix: No findings to suggest acute appendicitis. Bladder: Unremarkable. No mass. No stones. Reproductive: Unremarkable as visualized. ABDOMEN and PELVIS: Intraperitoneal space: Unremarkable. No free air. No significant fluid collection. Bones/joints: No acute fracture. No dislocation. Soft tissues: Unremarkable. Vasculature: Distal thoracic aortic aneurysm measuring 4.4 cm. Diffuse vascular calcifications of the abdominal aorta. Lymph nodes: Unremarkable. No enlarged lymph nodes. IMPRESSION: Trace left pleural effusion. Distal thoracic aortic aneurysm measuring 4.4 cm Electronically signed by: Sumeet Orellana MD 04/02/25 00:33 AM Pending Results Patient Have Any Pending Studies at Discharge: No Discharge Instructions Given to Patient (Per Discharging Provider) Faith, You were admitted to the hospital with lower abdominal pain. The CT scan of your abdomen/pelvis was suggestive of rectosigmoid colitis. Urology confirmed that your abdominal pain was not due to the ureteral stent that you recently had placed, as they reviewed the images and your stent is still in the proper location. You were treated with IV antibiotics while hospitalized, and will continue on oral antibiotics for a few more days to complete your course. Additionally, the CT scan noted an enlarged abdominal aorta measuring 5.1 cm. You were evaluated by PT and OT who recommended your return to short term rehab. You are being discharged back to [facility] for continued rehab. Upon discharge from the hospital: * Take Flagyl 500 mg twice daily through 04/08/25. This will complete your antibiotic course for your rectosigmoid colitis. You only need to take your evening dose tonight, as you had your morning dose in the hospital. * Take famotidine 10 mg twice daily. This will help your abdominal pain. * Continue your other medications as prescribed. * I recommend that you establish with a vascular surgeon for surveillance of your abdominal aortic aneurysm. I have asked my navigator to make this referral on your behalf. * Follow-up with your PCP in 1-2 weeks. Please return to the hospital if you experience any of the following: Chest pain, difficulty breathing, inability to tolerate oral intake, passing out, new or worsening confusion, or any other symptoms concerning for you. It was a pleasure taking care of you while you were in the hospital! Total Time Total Time Spent Total Time Spent (In Minutes): Greater than 30 minutes spent completing this discharge process including direct patient care, medication reconciliation, documentation, review of labs and images, and coordination of care. Coding Level of Care Code 76819 INP/OBS DISCH >30 MIN Diagnoses Intractable abdominal pain R10.9 Colitis K52.9 S/P ureteral stent placement Z96.0 Acute hypokalemia E87.6 Anxiety F41.9 Abdominal aortic aneurysm (AAA) greater than 5.0 cm in diameter in female I71.40"
[2025-04-05 11:40] VITALS: BP 157/81; PULSE 73
== END 2025-04-05 12:29 | DRG 392 ==
LOC: ED 14:54 → EDINP 14:54 → SUATTDRO 20:08 → 3W 23:03 → SUATTDRO 03-31 14:56

== ENCOUNTER 2025-04-14 11:56 | Inpatient (IN) ==
--- NOTE | 2025-04-14 12:21 | Emergency Department Note ---
History of Present Illness General Chief complaint: Shortness of Breath/Dyspnea Stated complaint: SOB Time Seen by Provider: 04/14/25 12:12 History of Present Illness Maximum Pain Intensity: 5 This is a 74-year-old female who presents to the emergency department via EMS with complaints "shortness of breath, lower abdominal pain, neck pain". The patient notes that she awoke today with shortness of breath, neck pain posteriorly. She has had similar previously. She notes recent UTI with lower abdominal pain. No vomiting or fever. Reportedly EMS note O2 sat 85% on room air on arrival. The patient is not currently on oral antibiotics for the UTI. The patient denies any history of PE. No calf swelling. No hemoptysis Home Medications Medication Instructions Recorded Confirmed Type albuterol sulfate 90 mcg/actuation 2 puff inhalation Q6H PRN 08/23/22 03/29/25 History aerosol inhaler Shortness Of Breath Or Wheezing alprazolam 0.25 mg tablet 0.25 mg PO TID PRN anxiety 05/02/23 03/29/25 History paroxetine HCl 12.5 mg 12.5 mg PO QAM 05/02/23 03/29/25 History tablet,extended release 24 hr aspirin 81 mg chewable tablet 81 mg PO QAM 09/21/23 03/29/25 History carvedilol 3.125 mg tablet 3.125 mg PO AMHS 09/21/23 03/29/25 History docusate sodium 100 mg capsule 100 mg PO BID PRN Constipation #30 02/25/24 03/29/25 Rx caps fluticasone propionate 50 2 spray NA DAILY PRN Nasal 02/25/24 03/29/25 Rx mcg/actuation nasal congestion #16 grams spray,suspension amlodipine 5 mg tablet 5 mg PO QAM 12/19/24 03/29/25 History rosuvastatin 20 mg tablet 20 mg PO QAM 12/19/24 03/29/25 History acetaminophen 500 mg tablet 500 mg PO Q4H PRN PAIN/FEVER 02/27/25 03/29/25 History (Tylenol Extra Strength) trazodone 50 mg tablet 50 mg PO HS PRN Sleep 02/27/25 03/29/25 History oxycodone 5 mg tablet 5 mg PO Q4H PRN pain #10 tabs 03/26/25 03/29/25 Rx polyethylene glycol 3350 17 gram 17 g PO DAILY PRN constipation #30 03/26/25 03/29/25 Rx oral powder packet (Miralax) ea pantoprazole 40 mg tablet,delayed 40 mg PO BID 03/30/25 03/30/25 History release famotidine 10 mg tablet 10 mg PO BID #30 tabs 04/05/25 Rx metronidazole 500 mg tablet 500 mg PO BID #7 tabs 04/05/25 Rx Allergies Allergy/AdvReac Type Severity Reaction Status Date / Time salicylates AdvReac Intermediate INTOLERANCE Verified 03/29/25 17:32 Past Med/Surg History Problem List (Updated 04/14/25 @ 16:40 by Alexander Spring PA-C) Dyspnea (Acute) Abdominal pain, lower (Acute) Abdominal aortic aneurysm (AAA) greater than 5.0 cm in diameter in female S/P ureteral stent placement Colitis Acute hypokalemia (Acute) Intractable abdominal pain (Acute) Hypertension (Acute) Difficulty performing activity of daily living (ADL) (Acute) Fracture of shoulder (Acute) Abdominal pain (Acute) Abdominal pain (Acute) Proximal humerus fracture Acute hypokalemia Unable to care for self Opioid-induced constipation (Acute) Fecal impaction in rectum (Acute) Closed fracture of shoulder (Acute) Moderate protein-calorie malnutrition (Acute) Polypharmacy (Acute) Underweight (BMI < 18.5) Age-related physical debility (Acute) Frailty syndrome in geriatric patient (Acute) Simple chronic bronchitis Hyperlipidemia (Acute) 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) Hypertension (Chronic) 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) Carotid artery disease (Chronic) Hypertrophic cardiomyopathy (Chronic) Recurrent falls (Chronic) Anxiety (Chronic) Medical History Elevated troponin level not due myocardial infarction Syncope COVID-19 Sigmoid diverticulitis Diverticulitis Uncontrolled hypertension Acute dehydration Weakness AAA (abdominal aortic aneurysm) Surgical History S/P tubal ligation Family History Other Diabetes Social History Smoking Status: Former smoker Tobacco Type: Cigarettes packs per day: 0.5; Cigarettes Per Day: 1/4 ppd; Second Hand Exposure: No; Do You Dip or Chew Tobacco: No; Hx Alcohol Use: No Hx Substance Use: No Preferred Language: Martiniquais Communication Ability: Effective Presser Hand Required: No Beliefs That Will Affect Care: None Current Living Situation: [facility] Current Living Situation Comment: [facility]. Feels Safe at Home: Yes Assistive Devices: Cane and Walker Review of Systems A total of 10 systems reviewed and were otherwise negative Physical Exam Vital Signs Vital Signs - 24 hr 04/14/25 12:04 04/14/25 12:04 04/14/25 12:17 Temperature 36.9 C Temperature Source Oral Pulse Rate 66 70 Pulse Rate [Apical] 66 Respiratory Rate 20 20 Blood Pressure 174/96 H Blood Pressure [Right Arm] 174/96 H Blood Pressure Mean 122 Blood Pressure Mean [Right Arm] 122 Pulse Oximetry 98 98 Oxygen Delivery Method Room Air Room Air Sepsis Recent Fever Within 48 Hours No Sepsis New/Unexplained Change in Mental Status No Sepsis Action Taken by Nursing No Action Required 04/14/25 12:47 04/14/25 13:00 Temperature Temperature Source Pulse Rate 68 Pulse Rate [Apical] 71 Respiratory Rate 18 20 Blood Pressure Blood Pressure [Right Arm] 148/81 H Blood Pressure Mean Blood Pressure Mean [Right Arm] 103 Pulse Oximetry 98 98 Oxygen Delivery Method Room Air Room Air Sepsis Recent Fever Within 48 Hours Sepsis New/Unexplained Change in Mental Status Sepsis Action Taken by Nursing VITAL SIGNS - Vital signs and nursing notes were reviewed. Stable, afebrile. GENERAL -74-year-old female appearing her stated age who is in no acute distress. Communicates well with provider and answers questions appropriately. SKIN - Without rashes. No meningeal or petechial rash. HEAD - NC/AT. EYES - PERRL with EOMI bilaterally. Sclera anicteric. EARS - No deformities of external structures noted on gross examination bilaterally. NOSE - Midline and without cyanosis. No epistaxis or purulent drainage noted. MOUTH/OROPHARYNX - Without perioral cyanosis. No drooling, stridor, trismus, wheezing or tripoding. Normal phonation. NECK - Neck with FROM. No nuchal rigidity. LUNGS - Chest wall symmetric without accessory muscle use, intercostals retractions, or central cyanosis. Normal vesicular breath sounds CTA B/L. No wheezes, rales, or rhonchi appreciated. CARDIAC - RRR with S1/S2. No murmur, rubs, or gallops appreciated. ABDOMEN - Abdominal contour normal without pulsations or visible masses. BS normoactive all four quadrants. There is mild tenderness in the lower abdomen to palpation. No guarding. No rigidity. No palpable masses, hepatosplenomegaly, or ascites noted. EXTREMITIES - No clubbing or peripheral cyanosis. +5/5 strength noted in UE/LE bilaterally. NEUROLOGIC - Cranial nerves II through XII grossly intact. PSYCH -alert, oriented and pleasant on exam Course Administered Medications Ceftriaxone Sodium (Rocephin) 2,000 mg in 50 mls @ 100 mls/hr IV Q24H KEELY Stop: 04/24/25 15:59 Last Admin: 04/14/25 16:32 Dose: 100 mls/hr Documented By: sarita Morphine Sulfate (Morphine Sulfate 2 Mg/Ml Carp) 2 mg IV Q2H PRN PRN Reason: Pain Stop: 04/28/25 15:28 Last Admin: 04/14/25 16:32 Dose: 2 mg Documented By: sarita Ondansetron HCl (Ondansetron Inj 2 Mg/Ml 2 Ml Vial) 4 mg IV Q6H PRN PRN Reason: Nausea Stop: 05/14/25 14:30 Last Admin: 04/14/25 16:32 Dose: 4 mg Documented By: sarita Discontinued Medications Ioversol (Optiray 320 125ml) 119 ml IV ONCE ONE Stop: 04/14/25 16:11 Last Admin: 04/14/25 16:10 Dose: 119 ml Documented By: CHASE Morphine Sulfate (Morphine Sulfate 2 Mg/Ml Carp) 2 mg IV NOW STA Stop: 04/14/25 14:09 Last Admin: 04/14/25 14:19 Dose: 2 mg Documented By: shwetha Ondansetron HCl (Ondansetron Inj 2 Mg/Ml 2 Ml Vial) 4 mg IV NOW STA Stop: 04/14/25 14:09 Last Admin: 04/14/25 14:19 Dose: 4 mg Documented By: shwetha Medical Decision Making Laboratory Data 04/14/25 12:04 04/14/25 12:04 Lab Results 04/14/25 04/14/25 04/14/25 Range/Units 12:04 12:40 13:13 WBC 7.21 (4.8-10.8) K/ul RBC 4.06 L (4.20-5.40) M/uL Hgb 12.6 (12.0-16.0) g/dL Hct 38.1 (37.0-47.0) % MCV 93.8 (80.0-100.0) fL MCH 31.0 (25.0-34.0) pg MCHC 33.1 (32.0-36.0) g/dL RDW Std Deviation 43.2 (36.4-46.3) fL RDW Coeff of [place]ile 12.3 (11.5-14.5) % Plt Count 176 (130-400) K/uL MPV 10.6 (9.4-12.4) fL Immature Gran % (Auto) 0.3 % Neut % (Auto) 70.5 % Lymph % (Auto) 20.4 % [place] % (Auto) 7.4 % Eos % (Auto) 1.0 % Baso % (Auto) 0.4 % Neut # (Auto) 5.09 (1.40-6.50) K/uL Lymph # (Auto) 1.47 (1.20-3.40) K/uL [place] # (Auto) 0.53 (0.11-0.59) K/uL Eos # (Auto) 0.07 (0.00-0.50) K/uL Baso # (Auto) 0.03 (0.00-0.20) K/uL Immature Gran # (Auto) 0.02 (0.01-0.20) K/uL PT 11.1 (9.0-12.0) Seconds INR 1.1 (0.9-1.1) APTT 24 (21-31) Seconds PTT Ratio 0.9 Sodium 138 (136-145) mmol/L Potassium 3.8 (3.5-5.1) mmol/L Chloride 100 (98-107) mmol/L Carbon Dioxide 31 (21-32) mmol/L Anion Gap 7 (3-11) BUN 24 H (6-23) mg/dl Creatinine 0.85 (0.6-1.2) mg/dl Est Cr Clr Drug Dosing 38.3 ml/min eGFR 72.75 BUN/Creatinine Ratio 28.2 H (10-20) Glucose 91 (70-99(Fasting)) mg/dl Lactate 1.0 (0.4-2.0) mmol/L Calcium 9.7 (8.6-10.3) mg/dl Total Bilirubin 0.7 (0.2-1.0) mg/dl AST 40 H (13-39) U/L ALT 64 H (7-52) U/L Alkaline Phosphatase 80 (34-104) U/L Troponin I High Sens 8.1 (0-14) pg/ml Total Protein 7.5 (6.0-8.3) gm/dl Albumin 4.2 (3.4-5.0) gm/dl Globulin 3.3 (2.5-4.0) gm/dl Albumin/Globulin Ratio 1.3 (0.9-2) Lipase 27 (11-82) U/L Procalcitonin 0.04 (0-0.5) ng/ml TSH 0.513 (0.300-4.500) uIu/ml Urine Color Yellow Urine Appearance Clear (Clear) Urine pH 7.0 (4.5-7.5) Ur Specific [place] 1.020 (1.000-1.030) Urine Protein 3+ H (Negative) Urine Glucose (UA) Negative (Negative) Urine Ketones Negative (Negative) Urine Blood 3+ H (Negative) Urine Nitrite Negative (Negative) Urine Bilirubin Negative (Negative) Urine Urobilinogen Negative (Negative) Ur Leukocyte Esterase 2+ H (Negative) Urine WBC (Auto) 11-20 H (0-5) /hpf Urine RBC (Auto) >20 H (0-2) /hpf U Hyaline Cast (Auto) 3-5 H (0-2) /lpf U Epithel Cells (Auto) 0-2 (0-2) /hpf Urine Bacteria (Auto) None Seen (None Seen) Urine Comment Adenovirus (PCR) Not Detected (NotDetected) B. pertussis DNA (PCR) Not Detected (NotDetected) B.parapertussis DNA PCR Not Detected (NotDetected) C. pneumoniae DNA (PCR) Not Detected (NotDetected) Coronavirus OC43 (PCR) Not Detected (NotDetected) Coronavirus HKU1 (PCR) Not Detected (NotDetected) Coronavirus 229E (PCR) Not Detected (NotDetected) SARS-CoV-2 (PCR) Not Detected (NotDetected) Coronavirus NL63 (PCR) Not Detected (NotDetected) Human Metapneumovir PCR Not Detected (NotDetected) Influenza Type A (PCR) Not Detected (NotDetected) Influenza Type B (PCR) Not Detected (NotDetected) M. pneumoniae (PCR) Not Detected (NotDetected) Parainfluenza 1 (PCR) Not Detected (NotDetected) Parainfluenza 2 (PCR) Not Detected (NotDetected) Parainfluenza 3 (PCR) Not Detected (NotDetected) Parainfluenza 4 (PCR) Not Detected (NotDetected) RSV (PCR) Not Detected (NotDetected) Entero/Rhino (PCR) Not Detected (NotDetected) Imaging Data Radiologist's Impression: Chest X-Ray 04/14/25 12:18 XR chest 1V portable HISTORY: 74 years-old Female dyspnea acute shortness of breath COMPARISON: 03/22/2025 TECHNIQUE: AP view of the chest FINDINGS: Cardiomediastinal and hilar silhouettes are within normal limits. Atherosclerosis of the aorta. No pneumothorax, pleural effusion or airspace consolidation. Partially imaged left upper quadrant stent. Degenerative changes of the shoulders and spine. IMPRESSION: No acute process. ACT 112: Negative or not required by law. The above report was generated using voice recognition software. It may contain grammatical, syntax or spelling errors. Electronically signed by: Olu Villagran M.D. 04/14/2025 1:00 PM MDM Narrative Patient was seen and evaluated as above in room A02. Review was performed of nursing notes and vital signs. I did review pertinent previous visits and patient history. After obtaining a thorough history and physical examination the above work up was performed. Patient presents to us today via EMS for evaluation of dyspnea, neck pain and lower abdominal pain. The patient does note history of recent UTI and ureteral stent placement. On my assessment she is tender in the lower abdomen. She does feel short of breath but is yielding stable vital signs. No hypoxia here in the ED. She is not tachycardic. No tachypnea. Options of care were discussed with the patient. IV access was established. Labs were drawn. EKG per my interpretation reveals normal sinus rhythm at a rate of 62 bpm. QTc 436. QRS 62. No ST elevation. There is no leukocytosis or concerning anemia. Coags normal. No evidence of emergent kidney or liver failure but will note mild transaminitis 40 and 64 with AST and ALT respectively and a BUN of 24. The patient does appear mildly clinically dry. Urinalysis with possible infection but no bacteria. No nitrites. BioFire negative. Chest x- ray negative for pneumonia. The patient denies any history of PE. She is not tachycardic GCS: 15 In the evaluation and treatment of this patient the following differential diagnoses were entertained: LA, PE, pericarditis, costochondritis, pneumonia, UTI, pyelonephritis, among others Impression & Plan Abdominal pain, lower, Dyspnea Discharge Plan Visit Data Chief Complaint: Shortness of Breath/Dyspnea Stated Complaint: SOB ED Provider: Demetrio Cabral ED Midlevel Provider: Alexander Spring Discharge Problem: Abdominal pain, lower, Dyspnea Patient Disposition: Admitted As Inpatient Condition: Good Discharge Instructions Interventions: ED Discharge Assessment Last Done: 04/14/25 15:55
[2025-04-14 12:27] LABS: Hematocrit (blood only) 38.1 % (37.0-47.0); Hemoglobin 12.6 g/dL (12.0-16.0); Immature Granulocytes # (auto) 0.02 K/uL (0.01-0.20); Immature Granulocytes % (auto) 0.3 %; Mean Corpuscular Hemoglobin 31.0 pg (25.0-34.0); Mean Corpuscular Volume 93.8 fL (80.0-100.0); Platelet Count 176 K/uL (130-400); RDW Standard Deviation 43.2 fL (36.4-46.3); Red Blood Count 4.06 M/uL (4.20-5.40); White Blood Count 7.21 K/ul (4.8-10.8)
[2025-04-14 12:42] LABS: Alanine Aminotransferase 64.0 U/L (7-52); Albumin Globulin Ratio 1.3 (0.9-2); Albumin Level 4.2 gm/dl (3.4-5.0); Alkaline Phosphatase 80.0 U/L (34-104); Anion Gap 7.0 (3-11); Bilirubin,Total 0.7 mg/dl (0.2-1.0); Blood Urea Nitrogen 24.0 mg/dl (6-23); Calcium 9.7 mg/dl (8.6-10.3); Carbon Dioxide 31.0 mmol/L (21-32); Chloride 100.0 mmol/L (98-107); Creatinine Clr Calc Pharmacy 38.3 ml/min; Globulin 3.3 gm/dl (2.5-4.0); Glucose 91.0 mg/dl (70-99(Fasting)); Lipase 27.0 U/L (11-82); Potassium 3.8 mmol/L (3.5-5.1); Sodium 138.0 mmol/L (136-145); Total Protein 7.5 gm/dl (6.0-8.3)
[2025-04-14 12:58] LABS: Thyroid Stimulating Hormone 0.513 uIu/ml (0.300-4.500)
--- NOTE | 2025-04-14 13:01 | XRay Report ---
XR chest 1V portable HISTORY: 74 years-old Female dyspnea acute shortness of breath COMPARISON: 03/22/2025 TECHNIQUE: AP view of the chest FINDINGS: Cardiomediastinal and hilar silhouettes are within normal limits. Atherosclerosis of the aorta. No pn eumothorax, pleural effusion or airspace consolidation. Partially imaged left upper quadrant stent. D egenerative changes of the shoulders and spine. IMPRESSION: No acute process. ACT 112: Negative or not required by law. The above report was generated using voice recognition software. It may contain grammatical, syntax o r spelling errors. Electronically signed by: Olu Villagran M.D. 04/14/2025 1:00 PM
[2025-04-14 13:16] LABS: INR 1.1 (0.9-1.1); Partial Thromboplastin Time 24 Seconds (21-31); Prothrombin Time 11.1 Seconds (9.0-12.0)
[2025-04-14 13:28] LABS: Appearance Urine Clear (Clear); Bacteria Urine Automated None Seen (None Seen); Epithelial Cell Urine Auto 0-2 /hpf (0-2); Glucose Urine UA Negative (Negative); RBC Urine Automated >20 /hpf (0-2)
[2025-04-14 13:47] LABS: Chlamydia pneumoniae PCR Not Detected (NotDetected); Coronavirus 229E PCR Not Detected (NotDetected); Coronavirus CoV-2 (COVID19)PCR Not Detected (NotDetected); Coronavirus HKU1 PCR Not Detected (NotDetected); Coronavirus NL63 PCR Not Detected (NotDetected); Coronavirus OC43PCR Not Detected (NotDetected); Human Metapneumovirus PCR Not Detected (NotDetected); Parainfluenza Virus 1 PCR Not Detected (NotDetected); Parainfluenza Virus 2 PCR Not Detected (NotDetected); Parainfluenza Virus 3 PCR Not Detected (NotDetected); Parainfluenza Virus 4 PCR Not Detected (NotDetected); Respiratory Syncytial VirusPCR Not Detected (NotDetected); Rhinovirus/Enterovirus PCR Not Detected (NotDetected)
[2025-04-14] MEDS: ONDANSETRON INJ 2 MG/ML 2 ML VIAL IV STA (14:19)
[2025-04-14] MEDS: MoRPHine SULFATE 2 MG/ML CARP IV STA (14:19)
[2025-04-14] MEDS ORDERED: FLUTICASONE PROPIONATE NA SPR 16 GM BTL PRN (14:28)
[2025-04-14] MEDS ORDERED: ALBUTEROL HFA 8 GM INHALER INH PRN (14:28)
--- NOTE | 2025-04-14 14:37 | History & Physical Report ---
Date of Service April 14, 2025 Assessment & Plan (1) Intractable abdominal pain: Plan: -pt with admission last month with similar symptoms -had left ureteral stent placed 03/22 -CT on 04/01 showed good position -repeat CT ordered, follow up results -UA with 2+LE and 3+ blood -empiric treatment with rocephin -urology consulted -morphine for pain control (2) Hypertension: Plan: -amlodipine -coreg -hydralizine IV PRN (3) Queen esophagus: Plan: -protonix BID (4) Hyperlipidemia: Plan: -crestor (5) Anxiety: Plan: -paroxetine -trazadone -alprazolam (6) AAA (abdominal aortic aneurysm): Plan: -4.4cm on recent CT -out patient vascular follow up Plan Heparin SQ for DVT px History of Present Illness Chief Complaint: dyspnea, abdominal pain Primary Care Provider: NO PCP Pt is a 74 y/o female with a PMH of HLD, HTN, CAD, Queen esophagus, and recent ureteral stent placement, left ureter herniation with severe hydronephrosis and had a left ureteral stent placed on 03/22, recent admission and discharge on 04/05 for treatment of intractable abdominal pain, noted to have 4.4 cm AAA, who presents with today with dyspnea and continued abdominal pain. Pt states the pain started this am and she noted blood in her urine. She has been breathing shallow due to the pain. In the ER her EKG and CXR were WNL. Her UA showed 2+ LE and 3 + blood. She was given morphine for her abdominal pain and had some relief. Due to her h/o of left ureter herniation and recent stent placement, CT a/p ordered and patient started on rocephin for empiric abx coverage. Urology also consulted. Allergies Allergy/AdvReac Type Severity Reaction Status Date / Time salicylates AdvReac Intermediate INTOLERANCE Verified 03/29/25 17:32 Home Medications Medication Instructions Recorded Confirmed Type albuterol sulfate 90 mcg/actuation 2 puff inhalation Q6H PRN 08/23/22 03/29/25 History aerosol inhaler Shortness Of Breath Or Wheezing alprazolam 0.25 mg tablet 0.25 mg PO TID PRN anxiety 05/02/23 03/29/25 History paroxetine HCl 12.5 mg 12.5 mg PO QAM 05/02/23 03/29/25 History tablet,extended release 24 hr aspirin 81 mg chewable tablet 81 mg PO QAM 09/21/23 03/29/25 History carvedilol 3.125 mg tablet 3.125 mg PO AMHS 09/21/23 03/29/25 History docusate sodium 100 mg capsule 100 mg PO BID PRN Constipation #30 02/25/24 03/29/25 Rx caps fluticasone propionate 50 2 spray NA DAILY PRN Nasal 02/25/24 03/29/25 Rx mcg/actuation nasal congestion #16 grams spray,suspension amlodipine 5 mg tablet 5 mg PO QAM 12/19/24 03/29/25 History rosuvastatin 20 mg tablet 20 mg PO QAM 12/19/24 03/29/25 History acetaminophen 500 mg tablet 500 mg PO Q4H PRN PAIN/FEVER 02/27/25 03/29/25 History (Tylenol Extra Strength) trazodone 50 mg tablet 50 mg PO HS PRN Sleep 02/27/25 03/29/25 History oxycodone 5 mg tablet 5 mg PO Q4H PRN pain #10 tabs 03/26/25 03/29/25 Rx polyethylene glycol 3350 17 gram 17 g PO DAILY PRN constipation #30 03/26/25 03/29/25 Rx oral powder packet (Miralax) ea pantoprazole 40 mg tablet,delayed 40 mg PO BID 03/30/25 03/30/25 History release famotidine 10 mg tablet 10 mg PO BID #30 tabs 04/05/25 Rx metronidazole 500 mg tablet 500 mg PO BID #7 tabs 04/05/25 Rx Past Med/Surg History Problem List (Updated 04/08/25 @ 00:07 by Background Janak) Abdominal aortic aneurysm (AAA) greater than 5.0 cm in diameter in female S/P ureteral stent placement Colitis Acute hypokalemia (Acute) Intractable abdominal pain (Acute) Hypertension (Acute) Difficulty performing activity of daily living (ADL) (Acute) Fracture of shoulder (Acute) Abdominal pain (Acute) Abdominal pain (Acute) Proximal humerus fracture Acute hypokalemia Unable to care for self Opioid-induced constipation (Acute) Fecal impaction in rectum (Acute) Closed fracture of shoulder (Acute) Moderate protein-calorie malnutrition (Acute) Polypharmacy (Acute) Underweight (BMI < 18.5) Age-related physical debility (Acute) Frailty syndrome in geriatric patient (Acute) Simple chronic bronchitis Hyperlipidemia (Acute) 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) Hypertension (Chronic) 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) Carotid artery disease (Chronic) Hypertrophic cardiomyopathy (Chronic) Recurrent falls (Chronic) Anxiety (Chronic) Medical History Elevated troponin level not due myocardial infarction Syncope COVID-19 Sigmoid diverticulitis Diverticulitis Uncontrolled hypertension Acute dehydration Weakness AAA (abdominal aortic aneurysm) Surgical History S/P tubal ligation Family History Other Diabetes Social History Smoking Status: Former smoker Tobacco Type: Cigarettes packs per day: 0.5; Cigarettes Per Day: 1/4 ppd; Second Hand Exposure: No; Do You Dip or Chew Tobacco: No; Hx Alcohol Use: No Hx Substance Use: No Preferred Language: Syrian Communication Ability: Effective Tonal Regulator Required: No Beliefs That Will Affect Care: None Current Living Situation: Care Home Current Living Situation Comment: [facility]. Feels Safe at Home: Yes Assistive Devices: Cane and Walker Review of Systems Review of Systems: CONST: Negative for fever, body aches and chills. HENT: Negative for neck pain/stiffness, headache, congestion, sore throat, swelling. EYES: Negative for discharge/pain or vision changes. RESP: Negative for cough/hemoptysis and + shortness of breath. CV: Negative chest pain, difficulty breathing, palpitations. ABD: + pain, nausea, vomiting. : Negative increase frequency, dysuria, blood in urine or stool. MUSC: Negative for muscle aches, edema. SKIN: Negative rash, lesions/sores. NEURO: Negative headache, dizziness, weakness. Physical Exam Physical Exam: GENERAL APPEARANCE NAD, activity normal for age, well developed/ well nourished, no cyanosis, pallor, or diaphoresis. EYES lids/conjunctiva normal. EARS/NOSE/THROAT Mucous membranes moist, nares normal, lips/teeth normal uvula midline without oral pharyngeal erythema, exudate or swelling TMs normal bilaterally. No lymphangitis/lymphedema. HEAD/NECK normocephalic atraumatic, no facial trauma, neck is supple. RESPIRATORY respiratory effort normal, speaks in full sentences, no tripod position, no accessory muscle use. Lungs clear to auscultation without rhonchi, wheezes, rales CARDIAC Regular rate and rhythm, no edema. ABDOMINAL Soft, ND/NT. No evidence of fluid wave. No pulsatile masses on exam, rebound tenderness, [place] sign or pain over Mcburney's point. MUSCLES/EXTREMITIES No abnormal range of motion, no swelling. SKIN Warm, pink and dry. No rashes, dermatoses, petechiae or lesions. NEUROLOGICAL Speech is clear and appropriate. Normal level of consciousness. Gait and coordination are normal. 5/5 strength in all extremities. PSYCH Normal mood and affect. Judgement/competence is appropriate Results & Data Results & Data Vital Signs (Past 12 Hours) Vital Signs Temp Pulse Pulse Resp BP BP Pulse Ox 04/14/25 13:00 71 20 148/81 H 98 04/14/25 12:47 68 18 98 04/14/25 12:17 70 04/14/25 12:04 66 20 174/96 H 98 04/14/25 12:04 36.9 C 66 20 174/96 H 98 O2 Del Method 04/14/25 13:00 Room Air 04/14/25 12:47 Room Air 04/14/25 12:17 04/14/25 12:04 Room Air 04/14/25 12:04 Room Air PG Care Time/CCT Total # of Minutes Spent Total Time Spent with Patient: Total time spent is greater than 50% in coordination of care (as documented) at patient's floor/unit and/or counseling patient: Coding Level of Care Code 53626 INT INP/OBS CARE 2/55MIN Diagnoses Intractable abdominal pain R10.9 Hypertension I10 Queen esophagus K22.70 Hyperlipidemia E78.5 Anxiety F41.9 AAA (abdominal aortic aneurysm) I71.40
[2025-04-14] MEDS: OPTIRAY 320 125ml IV ONE (16:10)
[2025-04-14] MEDS: cefTRIAXone SODIUM 2,000 MG/50 ML BAG IV SCH (16:32)
[2025-04-14] MEDS: MoRPHine SULFATE 2 MG/ML CARP IV PRN (16:32)
[2025-04-14] MEDS: ONDANSETRON INJ 2 MG/ML 2 ML VIAL IV PRN (16:32)
--- NOTE | 2025-04-14 16:52 | CT Scan Report ---
EXAMINATION: CT angiogram of the abdomen and pelvis performed after the administration of IV contrast TECHNIQUE: Helical CT images from the lung bases through the symphysis pubis were obtained with contrast. Coronal and sagittal reformatted images were generated at a workstation for further assessment. Dose reduction techniques were achieved by using automatic exposure control and/or adjustment of mA and/or kV according to patient size and/or use of iterative reconstruction technique. COMPARISON: 04/01/2025 HISTORY: Rule out stent obstruction FINDINGS: Lower chest: No consolidation. No pleural effusion or pneumothorax. The lungs are emphysematous. Liver: No suspicious liver lesions. Portal veins appear patent. Gallbladder: No gallstones. No evidence of acute cholecystitis. Spleen: Normal size. Pancreas: No suspicious pancreatic lesions. The pancreatic duct is not dilated. Adrenal glands: No adrenal nodules. Kidneys: No hydronephrosis or obstructing renal stones. Left nephroureteral stent, without significant change in persistent mild dilation of the left renal pelvis from 04/01/2025. Bladder / Pelvic organs: Unremarkable. Bowel: No bowel obstruction. No abnormal bowel wall thickening. Postsurgical changes of the right hemicolon. Lymph nodes: No retroperitoneal, mesenteric, or pelvic lymphadenopathy. Peritoneum / Retroperitoneum: No free fluid or air within the abdomen. Vessels: Infrarenal aortic aneurysm not significantly changed, measuring 3.1 x 3.0 cm in size. Heavy mixed calcified and noncalcified aortoiliac atherosclerosis. Aneurysm of the descending thoracic aorta in the lower chest seen measures up to 4.7 cm in diameter. 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 There is high-grade focal stenosis of the origin of the right renal artery and mild proximal left renal artery stenosis. 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 No significant proximal SMA stenosis. No significant proximal EL stenosis. Nonaneurysmal iliac arteries bilaterally. The common and external iliac arteries are patent. Patent internal iliac arteries. Bones and soft tissues: No suspicious lesion in the bones. IMPRESSION: Aneurysmal dilation of the descending thoracic aorta and the infrarenal abdominal aorta again seen, as above. Diffuse atherosclerosis. High-grade stenosis at the origin of the right renal artery and the origin of the celiac artery. Left nephroureteral stent appears stable with persistent mild dilation of the left renal pelvis. Electronically signed by Ori Sanon 04-14-2025 4:52 PM
[2025-04-14] MEDS: HEPARIN SOD 5,000 UNIT/0.5 ML VIAL SQ SCH (22:31)
[2025-04-14] MEDS: FAMOTIDINE 10 MG TABLET PO SCH (22:35)
[2025-04-15 06:49] LABS: Hematocrit (blood only) 31.4 % (37.0-47.0); Hemoglobin 10.5 g/dL (12.0-16.0); Mean Corpuscular Hemoglobin 31.5 pg (25.0-34.0); Mean Corpuscular Volume 94.3 fL (80.0-100.0); Platelet Count 123 K/uL (130-400); RDW Standard Deviation 43.5 fL (36.4-46.3); Red Blood Count 3.33 M/uL (4.20-5.40); White Blood Count 5.00 K/ul (4.8-10.8)
[2025-04-15 07:23] LABS: Anion Gap 8.0 (3-11); Blood Urea Nitrogen 23.0 mg/dl (6-23); Calcium 8.8 mg/dl (8.6-10.3); Carbon Dioxide 30.0 mmol/L (21-32); Chloride 102.0 mmol/L (98-107); Creatinine Clr Calc Pharmacy 32.7 ml/min; Glucose 81.0 mg/dl (70-99(Fasting)); Potassium 3.7 mmol/L (3.5-5.1); Sodium 140.0 mmol/L (136-145)
[2025-04-15] MEDS: PARoxetine HCl CONTROLLED REL 12.5 MG TABCR PO SCH (08:24)
[2025-04-15] MEDS: ASPIRIN 81 MG CHEW PO SCH (08:24)
[2025-04-15] MEDS: ROSUVASTATIN CALCIUM 20 MG TAB PO SCH (08:25)
--- NOTE | 2025-04-15 08:32 | Electrocardiogram Report ---
Test Reason : Blood Pressure : */* mmHG Vent. Rate : 62 BPM Atrial Rate : 62 BPM P-R Int : 168 ms QRS Dur : 62 ms QT Int : 430 ms P-R-T Axes : 67 30 69 degrees QTcB Int : 436 ms Normal sinus rhythm Left atrial enlargement Normal ECG When compared with ECG of 29-Mar-2025 15:01, in comparison with previous ekg, no change Confirmed by Adeola Lombardi ([email or web address]) on 04/15/2025 8:32:29 AM Referred By: REFERRED SELF Confirmed By: Adeola Lombardi
--- NOTE | 2025-04-15 09:02 | Urology Consultation ---
Date of Consultation April 15, 2025 Assessment & Plan (1) Abdominal pain: (2) Ureteral stent present: Plan 74yo F with a hx of left ureteral stent placement (03/22/[address] Quiroz) secondary to herniation of the left ureter into the left sciatic foramen resulting in severe left hydroureteronephrosis who is currently admitted with abdominal pain. She is afebrile and hemodynamically stable. Labs- WBCs 5.00, Hemoglobin 10.5, Creatinine 1.05. Urine and blood cultures pending, on Rocephin. CTA abd pelvis 04/14 showed the left ureteral stent in position and no hydronephrosis. At the time of my exam, she reported minimal stent discomfort and R>L abdominal pain. For stent management, can consider tamsulosin, prn pyridium, prn oxybutnin. Can monitor ability to void, bladder scan as needed. Continue antibiotic therapy and tailor per culture sensitivities. No acute intervention warranted. Plan for outpatient follow-up with our service as scheduled. will sign off, can recall as needed. History of Present Illness Attending Physician: Gurpreet Tee MD History of Present Illness 74 year old female with a history of left ureteral stent placement (03/22/[address] Quiroz) secondary to herniation of the left ureter into the left sciatic foramen resulting in severe left hydroureteronephrosis who presented to the ED on 04/14/25 with complaints of SOB, neck pain, and lower abdominal pain. She was recently admitted 03/29-04/05/25 with similar symptoms. In the ED, she was afebrile. Labs showed no leukocytosis and normal creatinine. Urinalysis with 3+ blood, 2+Leukocyte esterase, 11-20 WBC, >20RBC, negative bacteria, negative nitrite. CTA abd/pelvis demonstrated the left ureteral stent in appropriate position with mild dilation of the left renal pelvis but no hydronephrosis or stones. Urine and blood cultures collected and pending. Patient admitted to medicine service. She is on IV Rocephin. Patient was seen at bedside this morning. Awake and resting in bed on arrival. No acute distress. At the present time, she reports right sided abdominal pain and denies left sided pain. She does report intermittent hematuria. No dysuria. Feels she is emptying her bladder well. Denies f/c/n/v. Allergies Allergy/AdvReac Type Severity Reaction Status Date / Time salicylates AdvReac Intermediate INTOLERANCE Verified 03/29/25 17:32 Home Medications Medication Instructions Recorded Confirmed Type albuterol sulfate 90 mcg/actuation 2 puff inhalation Q6H PRN 08/23/22 03/29/25 History aerosol inhaler Shortness Of Breath Or Wheezing alprazolam 0.25 mg tablet 0.25 mg PO TID PRN anxiety 05/02/23 03/29/25 History paroxetine HCl 12.5 mg 12.5 mg PO QAM 05/02/23 03/29/25 History tablet,extended release 24 hr aspirin 81 mg chewable tablet 81 mg PO QAM 09/21/23 03/29/25 History carvedilol 3.125 mg tablet 3.125 mg PO AMHS 09/21/23 03/29/25 History docusate sodium 100 mg capsule 100 mg PO BID PRN Constipation #30 02/25/24 03/29/25 Rx caps fluticasone propionate 50 2 spray NA DAILY PRN Nasal 02/25/24 03/29/25 Rx mcg/actuation nasal congestion #16 grams spray,suspension amlodipine 5 mg tablet 5 mg PO QAM 12/19/24 03/29/25 History rosuvastatin 20 mg tablet 20 mg PO QAM 12/19/24 03/29/25 History acetaminophen 500 mg tablet 500 mg PO Q4H PRN PAIN/FEVER 02/27/25 03/29/25 History (Tylenol Extra Strength) trazodone 50 mg tablet 50 mg PO HS PRN Sleep 02/27/25 03/29/25 History oxycodone 5 mg tablet 5 mg PO Q4H PRN pain #10 tabs 03/26/25 03/29/25 Rx polyethylene glycol 3350 17 gram 17 g PO DAILY PRN constipation #30 03/26/25 03/29/25 Rx oral powder packet (Miralax) ea pantoprazole 40 mg tablet,delayed 40 mg PO BID 03/30/25 03/30/25 History release famotidine 10 mg tablet 10 mg PO BID #30 tabs 04/05/25 Rx metronidazole 500 mg tablet 500 mg PO BID #7 tabs 04/05/25 Rx Patient History Medical History Elevated troponin level not due myocardial infarction Syncope COVID-19 Sigmoid diverticulitis Diverticulitis Uncontrolled hypertension Acute dehydration Weakness AAA (abdominal aortic aneurysm) Surgical History S/P tubal ligation Family History Other Diabetes Social History Smoking Status: Former smoker Tobacco Type: Cigarettes packs per day: 0.5; Cigarettes Per Day: 1/4 ppd; Second Hand Exposure: No; Do You Dip or Chew Tobacco: No; Hx Alcohol Use: No Hx Substance Use: No Preferred Language: Azeri Communication Ability: Effective Golf Ball Winder Required: No Beliefs That Will Affect Care: None Current Living Situation: Spouse Current Living Situation Comment: [facility]. Feels Safe at Home: Yes Assistive Devices: Walker Review of Systems Review of Systems: All systems reviewed & are unremarkable except as noted in HPI & below Physical Exam Constitutional: no acute distress Respiratory: no respiratory distress and no labored breathing Musculoskeletal: Head/Neck/Chest: normocephalic Neurologic: moves all extremities and awake Psychiatric: A+Ox3, euthymic affect Results & Data Vital Signs (Past 12 Hours) Vital Signs Temp Pulse Pulse Resp BP Pulse Ox O2 Del Method 04/15/25 07:59 36.8 C 66 16 105/65 98 Nasal Cannula 04/15/25 07:05 70 04/15/25 02:16 36.8 C 61 16 92/58 L 92 Room Air 04/14/25 22:58 60 04/14/25 22:05 36.9 C 65 18 99/55 L 95 Room Air O2 Flow Rate 04/15/25 07:59 2 04/15/25 07:05 04/15/25 02:16 04/14/25 22:58 04/14/25 22:05 PG Care Time/CCT Total # of Minutes Spent Total Time Spent with Patient: Total time spent is greater than 50% in coordination of care (as documented) at patient's floor/unit and/or counseling patient: Coding Level of Care Code 05529 INT INP/OBS CARE 2/55MIN Diagnoses Abdominal pain R10.84 Abdominal location: generalized Ureteral stent present Z96.0 (1) Abdominal pain Abdominal location: generalized Qualified Code(s): R10.84 - Generalized abdominal pain
--- NOTE | 2025-04-15 09:03 | Hospitalist Progress Note ---
"Date of Service April 15, 2025 Assessment & Plan (1) Intractable abdominal pain: (2) Anxiety: (3) Hypertension: (4) Queen esophagus: (5) Hyperlipidemia: Plan 74 y/o F w/ PMHx of HLD, HTN, CAD, Queen esophagus, and recent ureteral stent placement. Pt has recent admission from 03/22 - 03/26 due to left ureter herniation with severe hydronephrosis and had a left ureteral stent placed on 03/22 and was d/c to rehab at that time. Pt was re-admitted from 03/29-04/05 for intractable abdominal pain. A repeat CT 04/01 confirmed proper stent placement + the presence of an aortic aneurysm. Pt represented to the hospital on 04/14 #Intractable abdominal Pain | UTI - Resulting in continual readmission; Urinalysis 04/14 w/ 2+LE & 3+Blood; CTAP 04/14 reveals stable nephroureteral stent w/ persistent mild dilation of Lt renal pelvis -Urology Consulted: Pt to f/u on outpatient basis -Start Tamsulosin 0.4mg QAM; consider oxybutynin +/- pyridium if no improvement -IV Rocephin -Pain: Tylenol 650 po Q4H prn mild/mod pain; Oxycodone 5mg po Q4H prn severe pain -CBC, BMP #Anxiety - pt acutely tearful, pt exereses extreme concern about returning to [facility] -Suspect uncontrolled anxiety may be contributing to pts abd pain -Continue Paroxetine, trazodone, Alprazolam -Consult Behavioral Medicine #Dyspnea - RESOLVED; Biofire in ED negative; CXR 04/14 neg acute changes; 04/15 ESR & CRP negative -Albuterol Hfa Q6H prn -Supplemental O2 prn, ween as able #HTN | HLD - no acute concerns -Continue Amlodipine, Coreg, Crestor -PRN IV Hydralizine #GERD | Queen's Esophagus- no acute concerns -Continue Protonix BID -Famotidine 10mg PO BID #AAA - 4.4cm on 04/01 CT; Pt w/ outpatient vascular f/u; CT 04/14 -Continue ASA chew daily VTE Proph: SCDs, Heparin - Pt admits she declined AM shot 04/15, states she will take in starting 04/16 Dispo: Med Tele Admission and Anticipated Discharge Date Admission Date: April 14, 2025 Subjective Pt was laying in bed today, tearful. Pt states that she is no longer SOB but continues to have abdominal pain. Pt states that she has been feeling very anxious and is extremely upset with the idea of returning to [facility]. She notes that she has been trying to eat well but notes that it is very difficult for her. She states that she often afraid that she is going to . Pt otherwise denies cough, congestion, SOB, CP, palpitations, N/V/D. Discussed consulting behavioral health team with patient, she was agreeable to this. Telemetry: Sinus 60s-70s overnight and into AM Review of Systems Review of Systems: All systems reviewed & are unremarkable except as noted in Subjective Physical Exam Physical Exam: General: Pt is a 74 y/o underweight F in NAD in bed. VS: reviewed, unremarkable Skin: Warm and dry; no lesions or ulcerations Respiratory: Mild Wheezing bilat; Chest expansion is full and symmetrical Cardio: RRR no murmurs Abdomen: Round, normoactive BS x4, nontender to palpation MSK: FROM of extremities, no deformities Extremities: no edema Neuro: A&Ox4, cooperative Results & Data Results & Data Vital Signs (Past 12 Hours) Vital Signs Temp Pulse Pulse Resp BP Pulse Ox O2 Del Method 04/15/25 07:59 98.2 F 66 16 105/65 98 Nasal Cannula 04/15/25 07:05 70 04/15/25 02:16 98.2 F 61 16 92/58 L 92 Room Air 04/14/25 22:58 60 04/14/25 22:05 98.4 F 65 18 99/55 L 95 Room Air O2 Flow Rate 04/15/25 07:59 2 04/15/25 07:05 04/15/25 02:16 04/14/25 22:58 04/14/25 22:05 Laboratory Results Reviewed: CBC, BMP, ESR, CRP, Procal PG Care Time/CCT Total # of Minutes Spent Total Time Spent with Patient: Total time spent is greater than 50% in coordination of care (as documented) at patient's floor/unit and/or counseling patient: Coding Level of Care Code 93539 SUB INP/OBS CARE 2/35MIN Diagnoses Intractable abdominal pain R10.9 Anxiety F41.9 Hypertension I10 Queen esophagus K22.70 Hyperlipidemia E78.5"
[2025-04-15] MEDS: TAMSULOSIN HCL 0.4 MG CAP PO SCH (14:08)
[2025-04-16 06:21] LABS: Hematocrit (blood only) 31.1 % (37.0-47.0); Hemoglobin 10.3 g/dL (12.0-16.0); Mean Corpuscular Hemoglobin 31.0 pg (25.0-34.0); Mean Corpuscular Volume 93.7 fL (80.0-100.0); Platelet Count 124 K/uL (130-400); RDW Standard Deviation 42.2 fL (36.4-46.3); Red Blood Count 3.32 M/uL (4.20-5.40); White Blood Count 6.87 K/ul (4.8-10.8)
[2025-04-16 06:51] LABS: Anion Gap 7.0 (3-11); Blood Urea Nitrogen 30.0 mg/dl (6-23); Calcium 8.6 mg/dl (8.6-10.3); Carbon Dioxide 32.0 mmol/L (21-32); Chloride 103.0 mmol/L (98-107); Creatinine Clr Calc Pharmacy 29.0 ml/min; Glucose 94.0 mg/dl (70-99(Fasting)); Potassium 3.6 mmol/L (3.5-5.1); Sodium 142.0 mmol/L (136-145)
--- NOTE | 2025-04-16 07:59 | Hospitalist Progress Note ---
"Date of Service April 16, 2025 Assessment & Plan (1) Intractable abdominal pain: (2) Anxiety: (3) Hypertension: (4) Queen esophagus: (5) Hyperlipidemia: Plan 74 y/o F w/ PMHx of HLD, HTN, CAD, Queen esophagus, and recent ureteral stent placement. Pt has recent admission from 03/22 - 03/26 due to left ureter herniation with severe hydronephrosis and had a left ureteral stent placed on 03/22 and was d/c to rehab at that time. Pt was re-admitted from 03/29-04/05 for intractable abdominal pain. A repeat CT 04/01 confirmed proper stent placement + the presence of an aortic aneurysm. Pt represented to the hospital on 04/14 #Intractable abdominal Pain - Resulting in continual readmission; CTAP 04/14 w/out any acute processes, consistent with 04/01 -Suspect may have psychiatric component, BHU consulted as below -IVF NSS 500mL Q6H -Nausea: IV Zofran Q6H prn -Pain: Tylenol 650 po Q4H prn mild/mod pain; Oxycodone 5mg po Q4H prn severe pain -CBC, BMP -Consult GI #UTI | Hx of Lt Ureteral Herniation with Stent placement - Urinalysis 04/14 2+LE & 3+Blood; CTAP 04/14 reveals stable nephroureteral stent w/ persistent mild dilation of Lt renal pelvis -Urology Consulted: Pt to f/u on outpatient basis -Start Tamsulosin 0.4mg QAM; consider oxybutynin +/- pyridium if no improvement -IV Rocephin #Anxiety - pt acutely tearful, pt exereses extreme concern about returning to [facility] care -Suspect uncontrolled anxiety may be contributing to pts abd pain -Continue Paroxetine, trazodone, Alprazolam -Behavioral Medicine Consulted #Dyspnea - RESOLVED; Biofire in ED negative; CXR 04/14 neg acute changes; 04/15 ESR & CRP negative -Albuterol Hfa Q6H prn -Supplemental O2 prn, ween as able #HTN | HLD - no acute concerns -Continue Amlodipine, Coreg, Crestor -PRN IV Hydralizine #GERD | Queen's Esophagus- no acute concerns -Continue Protonix BID -Famotidine 10mg PO BID #AAA - 4.4cm on 04/01 CT; Pt w/ outpatient vascular f/u; CT 04/14 -Continue ASA chew daily VTE Proph: SCDs, Heparin - Pt admits she declined AM shot 04/15, states she will take in starting 04/16 Dispo: Fortino Phelan, PT/OT consulted Admission and Anticipated Discharge Date Admission Date: April 14, 2025 Subjective Pt was laying in bed today in NAD. Pt notes that she continues to have abdominal pain and expresses that she's concerned as to why her pain has not resolved. Pt states that she has recently begun to develop some diarrhea and nausea. Pt admits that as a result of abdominal pain, that her appetite as decreased overall. Pt notes that behavioral medicine was able to stop in to see her briefly and that she was told they would be back to speak with her again later. Pt expresses that she does not wish to return to [facility] and notes that she has no interest in going home on [facility]osp[facility]. Telemetry: Sinus 70s overnight into AM ROS: + Symptoms: Abd pain, nausea, diarrhea, loss of appetite, weakness - Symptoms: cough, congestion, sore throat, SOB, CP, and chills Review of Systems Review of Systems: All systems reviewed & are unremarkable except as noted in Subjective Physical Exam Physical Exam: General: Pt is a 74 y/o underweight F in NAD in bed. VS: reviewed, unremarkable Skin: Warm and dry; no lesions or ulcerations Respiratory: CTA bilat. no adventitious sounds noted; Chest expansion is full and symmetrical Cardio: RRR no murmurs Abdomen: Round, normoactive BS x4, tenderness to light palpation MSK: FROM of extremities, no deformities Extremities: no edema Neuro: A&Ox4, cooperative Results & Data Results & Data Vital Signs (Past 12 Hours) Vital Signs Temp Pulse Pulse Resp BP Pulse Ox O2 Del Method 04/16/25 07:50 98.1 F 77 18 122/73 94 Room Air 04/16/25 07:33 82 04/16/25 07:00 98.4 F 79 16 114/63 94 Room Air 04/16/25 02:15 98.1 F 76 16 101/58 L 93 Room Air 04/15/25 22:40 98.4 F 72 16 104/61 96 Room Air 04/15/25 21:53 78 Laboratory Results Reviewed: CBC, BMP PG Care Time/CCT Total # of Minutes Spent Total Time Spent with Patient: Total time spent is greater than 50% in coordination of care (as documented) at patient's floor/unit and/or counseling patient: A total of 60 minutes was spent on patient care between direct patient contact (35 minutes), chart review, lab interpretation/review, coordination of care, and documentation (25 minutes) Coding Level of Care Code 59722 SUB INP/OBS CARE 3/50MIN Diagnoses Intractable abdominal pain R10.9 Anxiety F41.9 Hypertension I10 Queen esophagus K22.70 Hyperlipidemia E78.5"
--- NOTE | 2025-04-16 13:32 | Gastrointestinal Consultation ---
Date of Consultation April 16, 2025 Assessment & Plan (1) Abdominal pain: Plan Patient with ongoing issues with abdominal pain. She had CTA with an aneurysmal dilation of the descending thoracic aorta and the infrarenal abdominal aorta, diffuse atherosclerosis, high-grade stenosis at the origin of the right renal artery and the origin of the celiac artery. - recommend supportive care. - given recent EGD earlier this year for the same issues, would not repeat at this time. - continue with protonix 40mg bid and famotidine 10mg bid. - recommend vascular surgical evaluation for CTA findings. - Further recommendations to come with Supervising GI provider on medical rounds. Please see co-signature comments. Supervising Physician Co-Signing Physician Notes I personally saw and examined the patient. I have reviewed the chart and agree with the documentation provided by the [employer] including discussion about the assessment, treatment and plan. Briefly, 74 year old female with a past medical history of HLD, HTN, CAD, Queen esophagus, and recent ureteral stent placement. Patient had a recent admission from 03/22 - 03/26 due to left ureter herniation with severe hydronephrosis and had a left ureteral stent placed on 03/22 and was discharged to rehab at that time. Patient was re-admitted from 03/29-04/05 for intractable abdominal pain. A repeat CT 04/01 confirmed proper stent placement and the presence of an aortic aneurysm. Pt represented to the hospital on 04/14 with ongoing abdominal pain. 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 She complains of ongoing abdominal pain and poor oral intake. Her pain happens 30 minutes usually after eating and she reports abdominal pain mainly as her concern. On exam she has right upper quadrant and midepigastric tenderness. She has had an extensive workup which has included CTs, colonoscopy, EGD this year with short segment Queen's and gastritis. Her CTA is concerning for some SMA stenosis and high-grade celiac stenosis. She does have a lot of collateral formation. I would try at this point Carafate to see if this helps in coating. Also I think she should get a vascular surgery consult given her persistent pain with meals. History of Present Illness Reason for Consultation: intractable abdominal pain Requesting Physician: Vita BOONE Attending Physician: Gurpreet Tee MD History of Present Illness Patient is a 74 year old female with a past medical history of HLD, HTN, CAD, Queen esophagus, and recent ureteral stent placement. Patient had a recent admission from 03/22 - 03/26 due to left ureter herniation with severe hydronephrosis and had a left ureteral stent placed on 03/22 and was discharged to rehab at that time. Patient was re-admitted from 03/29-04/05 for intractable abdominal pain. A repeat CT 04/01 confirmed proper stent placement and the presence of an aortic aneurysm. Pt represented to the hospital on 04/14 with ongoing abdominal pain. 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 She complains of ongoing abdominal pain and poor oral intake. The remainder of the GI ROS were unremarkable. CTA 04/14/25 Aneurysmal dilation of the descending thoracic aorta and the infrarenal abdominal aorta again seen, as above. Diffuse atherosclerosis. High-grade stenosis at the origin of the right renal artery and the origin of the celiac artery. Left nephroureteral stent appears stable with persistent mild dilation of the left renal pelvis. CTA 07/05/24 1. 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 2. There is probable high-grade stenosis at the origin of the celiac trunk. The splenic artery appears to constitute from mesenteric collaterals. 3. There is marked irregular atherosclerosis of the aorta with areas of plaque ulceration along the left infrarenal abdominal aortic wall. No hemorrhage. EGD 07/04/24 mucosal nodule in the esophagus, hematin in the gastric fundus and in the gastric body, thick gastric folds, erosive gastropathy, normal examined duodenum. Pathology: Stomach, antrum, biopsy: - Irregular gastric mucosa with reactive changes and chronic inactive gastritis. - Intestinal metaplasia, complete subtype. Negative for dysplasia. - Helicobacter pylori immunohistochemistry stain: Negative. - See comment.Stomach, thickened gastric fold, biopsy: - Severe chronic inactive gastritis. - Negative for intestinal metaplasia. - Helicobacter pylori immunohistochemistry stain: Negative.Esophagus, "nodule", biopsy: - Inflamed columnar/cardia type mucosa with focal intestinal metaplasia. - Negative for dysplasia. - Squamous mucosa noted. - The biopsy from the antrum somewhat resembles a hyperplastic polyp. Similar changes may be seen in gastric mucosa adjacent to an ulcer though a distinct ulcer is not seen in this specimen. Clinical correlation is recommended. A neoplastic process is not identified in the biopsy from the esophagus. Focal intestinal metaplasia is noted. Queen's esophagus should be diagnosed when there is extension of salmon-colored mucosa (columnar-lined esophagus) into the tubular esophagus extending greater than or equal to 1 cm proximal to the gastroesophageal junction with biopsy confirmation of intestinal metaplasia. ([employer] 2021 definition) Allergies Allergy/AdvReac Type Severity Reaction Status Date / Time salicylates AdvReac Intermediate INTOLERANCE Verified 03/29/25 17:32 Home Medications Medication Instructions Recorded Confirmed Type albuterol sulfate 90 mcg/actuation 2 puff inhalation Q6H PRN 08/23/22 03/29/25 History aerosol inhaler Shortness Of Breath Or Wheezing alprazolam 0.25 mg tablet 0.25 mg PO TID PRN anxiety 05/02/23 03/29/25 History paroxetine HCl 12.5 mg 12.5 mg PO QAM 05/02/23 03/29/25 History tablet,extended release 24 hr aspirin 81 mg chewable tablet 81 mg PO QAM 09/21/23 03/29/25 History carvedilol 3.125 mg tablet 3.125 mg PO AMHS 09/21/23 03/29/25 History docusate sodium 100 mg capsule 100 mg PO BID PRN Constipation #30 02/25/24 03/29/25 Rx caps fluticasone propionate 50 2 spray NA DAILY PRN Nasal 02/25/24 03/29/25 Rx mcg/actuation nasal congestion #16 grams spray,suspension amlodipine 5 mg tablet 5 mg PO QAM 12/19/24 03/29/25 History rosuvastatin 20 mg tablet 20 mg PO QAM 12/19/24 03/29/25 History acetaminophen 500 mg tablet 500 mg PO Q4H PRN PAIN/FEVER 02/27/25 03/29/25 History (Tylenol Extra Strength) trazodone 50 mg tablet 50 mg PO HS PRN Sleep 02/27/25 03/29/25 History oxycodone 5 mg tablet 5 mg PO Q4H PRN pain #10 tabs 03/26/25 03/29/25 Rx polyethylene glycol 3350 17 gram 17 g PO DAILY PRN constipation #30 03/26/25 03/29/25 Rx oral powder packet (Miralax) ea pantoprazole 40 mg tablet,delayed 40 mg PO BID 03/30/25 03/30/25 History release famotidine 10 mg tablet 10 mg PO BID #30 tabs 04/05/25 Rx metronidazole 500 mg tablet 500 mg PO BID #7 tabs 04/05/25 Rx Patient History Medical History Elevated troponin level not due myocardial infarction Syncope COVID-19 Sigmoid diverticulitis Diverticulitis Uncontrolled hypertension Acute dehydration Weakness AAA (abdominal aortic aneurysm) Surgical History S/P tubal ligation Family History Other Diabetes Social History Smoking Status: Former smoker Tobacco Type: Cigarettes packs per day: 0.5; Cigarettes Per Day: 1/4 ppd; Second Hand Exposure: No; Do You Dip or Chew Tobacco: No; Hx Alcohol Use: No Hx Substance Use: No Preferred Language: Urdu Communication Ability: Effective [employer] Required: No Beliefs That Will Affect Care: None Current Living Situation: Spouse Current Living Situation Comment: [facility]. Feels Safe at Home: Yes Assistive Devices: Cane and Walker Review of Systems Review of Systems: All systems reviewed & are unremarkable except as noted in HPI & below Physical Exam Constitutional: WD/WN, vitals as above Respiratory: normal respiratory effort, lungs clear to auscultation Cardiovascular: Rate/Rhythm: regular rate and regular rhythm Gastrointestinal (Abdomen): RUQ and mid epigastric tenderness. no guarding, soft. normal bowel sounds. Psychiatric: Orientation: alert and oriented x 3 Results & Data Vital Signs (Past 12 Hours) Vital Signs Temp Pulse Pulse Resp BP Pulse Ox O2 Del Method 04/16/25 10:55 97.9 F 74 20 119/69 94 Room Air 04/16/25 07:50 98.1 F 77 18 122/73 94 Room Air 04/16/25 07:33 82 04/16/25 07:00 98.4 F 79 16 114/63 94 Room Air 04/16/25 02:15 98.1 F 76 16 101/58 L 93 Room Air Coding Level of Care Code 99590 INT INP/OBS CARE 2/55MIN Diagnoses Abdominal pain R10.9
[2025-04-16] MEDS: SODIUM CHLORIDE 0.9% 500 ML IV SCH (14:43)
--- NOTE | 2025-04-16 14:54 | Psychiatric Consultation ---
Date of Consultation April 16, 2025 Impression / Recommendations Impression Diagnostically consistent with TEJ and adjustment disorder with anxiety in the context of increased pain and recent rehab placement. Acute risk of self-harm is low given denial of SI. Overall, I spent a total of 60 minutes with this case including review of chart records, review of labwork, review of EKG QTc, direct evaluation of the patient at bedside, counseling the patient, discussion of the patient with the hospitalist provider, discussion with the psychiatric liason during clinical rounds and documentation in the electronic health record. (1) TEJ (generalized anxiety disorder): (2) Insomnia: (3) Intractable abdominal pain: Plan -Increase Paxil CR to 25mg daily -Continue trazodone 50mg HS -Start ativan 0.5mg BID (can increase to 1mg BID if needed and if not effective or not tolerated trial Klonopin 0.25mg BID) -If appetite remains low and sleep remains difficult with ongoing anxiety consider trial of olanzapine 2.5mg po HS off-label for insomnia/nausea/appetite stimulation/anxiety (discontinue trazodone if started to avoid polypharmacy) Psych History Identifying Data Faith Chavis is a 74 y/o female with a PMH of HLD, HTN, CAD, Queen esophagus, and recent ureteral stent placement, left ureter herniation with severe hydronephrosis and had a left ureteral stent placed on 03/22, recent admission and discharge on 04/05 for treatment of intractable abdominal pain, noted to have 4.4 cm AAA, who presents with today with dyspnea and continued abdominal pain. Psychiatry consulted for recommendations for increased anxiety. Chief Complaint "I just feel worse and have more physical pain". History of Present Illness Faith was admitted for ongoing abdominal pain and describes lifelong anxiety which has worsened in the context of pain and recent change of [facility]. She denies SI and depression but reports increased confusion at times and ongoing anxiety and pain. She feels her anxiety has been there for "years" and is worse at night. She's not sure why it's worse at night except that she guesses she feels more tired then and gets more overwhelmed. She reports trying many psychiatric medications over the years and never with much benefit for her anxiety. Past trial of mirtazapine was ineffective for nausea per her report. She currently takes Paxil (hasn't noticed side effects but also not much benefit), trazodone (helps with sleep, she likes this) and Xanax prn (she typically takes it before bed). She is fully oriented. Allergies Allergy/AdvReac Type Severity Reaction Status Date / Time salicylates AdvReac Intermediate INTOLERANCE Verified 03/29/25 17:32 Home Medications Medication Instructions Recorded Confirmed Type albuterol sulfate 90 mcg/actuation 2 puff inhalation Q6H PRN 08/23/22 03/29/25 History aerosol inhaler Shortness Of Breath Or Wheezing alprazolam 0.25 mg tablet 0.25 mg PO TID PRN anxiety 05/02/23 03/29/25 History paroxetine HCl 12.5 mg 12.5 mg PO QAM 05/02/23 03/29/25 History tablet,extended release 24 hr aspirin 81 mg chewable tablet 81 mg PO QAM 09/21/23 03/29/25 History carvedilol 3.125 mg tablet 3.125 mg PO AMHS 09/21/23 03/29/25 History docusate sodium 100 mg capsule 100 mg PO BID PRN Constipation #30 02/25/24 03/29/25 Rx caps fluticasone propionate 50 2 spray NA DAILY PRN Nasal 02/25/24 03/29/25 Rx mcg/actuation nasal congestion #16 grams spray,suspension amlodipine 5 mg tablet 5 mg PO QAM 12/19/24 03/29/25 History rosuvastatin 20 mg tablet 20 mg PO QAM 12/19/24 03/29/25 History acetaminophen 500 mg tablet 500 mg PO Q4H PRN PAIN/FEVER 02/27/25 03/29/25 History (Tylenol Extra Strength) trazodone 50 mg tablet 50 mg PO HS PRN Sleep 02/27/25 03/29/25 History oxycodone 5 mg tablet 5 mg PO Q4H PRN pain #10 tabs 03/26/25 03/29/25 Rx polyethylene glycol 3350 17 gram 17 g PO DAILY PRN constipation #30 03/26/25 03/29/25 Rx oral powder packet (Miralax) ea pantoprazole 40 mg tablet,delayed 40 mg PO BID 03/30/25 03/30/25 History release famotidine 10 mg tablet 10 mg PO BID #30 tabs 04/05/25 Rx metronidazole 500 mg tablet 500 mg PO BID #7 tabs 04/05/25 Rx Patient History Medical History Elevated troponin level not due myocardial infarction Syncope COVID-19 Sigmoid diverticulitis Diverticulitis Uncontrolled hypertension Acute dehydration Weakness AAA (abdominal aortic aneurysm) Surgical History S/P tubal ligation Family History Other Diabetes Social History Smoking Status: Former smoker Tobacco Type: Cigarettes packs per day: 0.5; Cigarettes Per Day: 1/4 ppd; Second Hand Exposure: No; Do You Dip or Chew Tobacco: No; Hx Alcohol Use: No Hx Substance Use: No Preferred Language: Luxembourger Communication Ability: Effective [employer] Required: No Beliefs That Will Affect Care: None Current Living Situation: Spouse Current Living Situation Comment: [facility]. Feels Safe at Home: Yes Assistive Devices: Cane and Walker Physical Exam Vital Signs (Past 24 Hours): Last Vital Signs Temp 36.6 C 04/16/25 10:55 Pulse 74 04/16/25 10:55 Resp 20 04/16/25 10:55 BP 119/69 04/16/25 10:55 Pulse Ox 94 04/16/25 10:55 O2 Del Method Room Air 04/16/25 10:55 O2 Flow Rate 2 04/15/25 07:59 Results & Data (PSY) Medications Administered Alprazolam (Alprazolam 0.25 Mg Tablet) 0.25 mg PO TID PRN PRN Reason: anxiety Stop: 05/14/25 14:27 Last Admin: 04/15/25 10:29 Dose: 0.25 mg Documented By: MARTITA Amlodipine Besylate (Amlodipine Besylate 5 Mg Tab) 5 mg PO [facility] Stop: 05/15/25 08:59 Last Admin: 04/16/25 07:54 Dose: 5 mg Documented By: Admin: 04/15/25 08:25 Dose: 5 mg Documented By: MARTITA Aspirin (Aspirin 81 Mg Chew) 81 mg PO [facility] Stop: 05/15/25 08:59 Last Admin: 04/16/25 07:56 Dose: 81 mg Documented By: [facility] Admin: 04/15/25 08:24 Dose: 81 mg Documented By: [facility] Carvedilol (Carvedilol 3.125 Mg Tab) 3.125 mg PO AMHS [facility] Stop: 05/14/25 20:59 Last Admin: 04/16/25 07:54 Dose: 3.125 mg Documented By: [facility] Admin: 04/15/25 20:18 Dose: 3.125 mg Documented By: [id number] Admin: 04/15/25 08:24 Dose: 3.125 mg Documented By: [facility] Admin: 04/14/25 22:35 Dose: Not Given Documented By: [facility] Famotidine (Famotidine 10 Mg Tablet) 10 mg PO BID KEELY Stop: 05/14/25 20:59 Last Admin: 04/16/25 07:53 Dose: 10 mg Documented By: [facility] Admin: 04/15/25 20:22 Dose: 10 mg Documented By: [id number] Admin: 04/15/25 08:24 Dose: 10 mg Documented By: [facility] Admin: 04/14/25 22:35 Dose: 10 mg Documented By: [facility] Heparin Sodium (Porcine) (Heparin Sod 5,000 Unit/0.5 Ml Vial) 5,000 units SQ Q8 KEEYL Stop: 05/14/25 21:59 Last Admin: 04/16/25 14:38 Dose: 5,000 units Documented By: [facility] Admin: 04/16/25 06:32 Dose: Not Given Documented By: Pending sale to [facility] Admin: 04/15/25 21:47 Dose: Not Given Documented By: Pending [facility] to [facility] Admin: 04/15/25 15:23 Dose: Not Given Documented By: [facility] Admin: 04/15/25 05:48 Dose: Not Given Documented By: [facility] Admin: 04/14/25 22:31 Dose: Not Given Documented By: [facility] Ceftriaxone Sodium (Rocephin) 2,000 mg in 50 mls @ 100 mls/hr IV Q24H [facility] Stop: 04/24/25 15:59 Last Infusion: 04/15/25 17:51 Dose: Infused Documented By: [facility] Admin: 04/15/25 17:19 Dose: 100 mls/hr Documented By: [facility] Infusion: 04/14/25 17:09 Dose: Infused Documented By: sarita Admin: 04/14/25 16:32 Dose: 100 mls/hr Documented By: sarita Sodium Chloride (Nss) 500 mls @ 80 mls/hr IV .Q6H15M KEELY Stop: 04/16/25 19:44 Last Admin: 04/16/25 14:43 Dose: 80 mls/hr Documented By: MARTITA Morphine Sulfate (Morphine Sulfate 2 Mg/Ml Carp) 2 mg IV Q2H PRN PRN Reason: Pain Stop: 04/28/25 15:28 Last Admin: 04/14/25 22:40 Dose: 2 mg Documented By: Admin: 04/14/25 16:32 Dose: 2 mg Documented By: sarita Ondansetron HCl (Ondansetron Inj 2 Mg/Ml 2 Ml Vial) 4 mg IV Q6H PRN PRN Reason: Nausea Stop: 05/14/25 14:30 Last Admin: 04/16/25 11:39 Dose: 4 mg Documented By: Admin: 04/14/25 16:32 Dose: 4 mg Documented By: sarita Oxycodone HCl (Oxycodone Hcl Ir 5 Mg Tab (Immediate Release)) 5 mg PO Q4H PRN PRN Reason: pain Stop: 04/28/25 14:27 Last Admin: 04/16/25 10:44 Dose: 5 mg Documented By: Admin: 04/15/25 20:17 Dose: 5 mg Documented By: [id number] Admin: 04/15/25 15:23 Dose: 5 mg Documented By: MARTITA Pantoprazole Sodium (Pantoprazole 40 Mg Tab) 40 mg PO BID [facility] Stop: 05/14/25 20:59 Last Admin: 04/16/25 07:54 Dose: 40 mg Documented By: Admin: 04/15/25 20:18 Dose: 40 mg Documented By: [id number] Admin: 04/15/25 08:24 Dose: 40 mg Documented By: Admin: 04/14/25 22:35 Dose: 40 mg Documented By: SHAJI Paroxetine HCl (Paroxetine Hcl Controlled Rel 12.5 Mg Tabcr) 12.5 mg PO QAM KEELY Stop: 05/15/25 08:59 Last Admin: 04/16/25 07:53 Dose: 12.5 mg Documented By: Admin: 04/15/25 08:24 Dose: 12.5 mg Documented By: MARTITA Rosuvastatin Calcium (Rosuvastatin Calcium 20 Mg Tab) 20 mg PO [facility] Stop: 05/15/25 08:59 Last Admin: 04/16/25 07:54 Dose: 20 mg Documented By: Admin: 04/15/25 08:25 Dose: 20 mg Documented By: [facility] Tamsulosin HCl (Tamsulosin Hcl 0.4 Mg Cap) 0.4 mg PO [facility] Stop: 05/15/25 12:14 Last Admin: 04/16/25 07:54 Dose: 0.4 mg Documented By: Admin: 04/15/25 14:08 Dose: 0.4 mg Documented By: [facility] Trazodone HCl (Trazodone Hcl 100 Mg Tab) 100 mg PO HS PRN PRN Reason: Sleep Stop: 05/14/25 14:27 Last Admin: 04/15/25 20:18 Dose: 100 mg Documented By: [id number] Admin: 04/14/25 23:28 Dose: 100 mg Documented By: SHAJI Coding Level of Care Code 21150 IN/OBS CONSULT LVL 4,60M Diagnoses TEJ (generalized anxiety disorder) F41.1 Insomnia G47.00 Intractable abdominal pain R10.9
[2025-04-16] MEDS: ACETAMINOPHEN 325 MG TAB PO PRN (17:34)
[2025-04-16 19:51] LABS: Cdiff Toxin B Gene (2yr or >) Negative Cdiff Gene (Neg)
[2025-04-16 20:30] LABS: Adenovirus F 40/41 PCR Not Detected (NotDetected); Campylobacter PCR Not Detected (NotDetected); Enteroaggregative E.coli(EAEC) Not Detected (NotDetected); Shiga-like Toxin E.coli (STEC) Not Detected (NotDetected); Vibrio species PCR Not Detected (NotDetected)
[2025-04-17 06:42] LABS: Hematocrit (blood only) 30.0 % (37.0-47.0); Hemoglobin 9.9 g/dL (12.0-16.0); Mean Corpuscular Hemoglobin 30.7 pg (25.0-34.0); Mean Corpuscular Volume 93.2 fL (80.0-100.0); Platelet Count 111 K/uL (130-400); RDW Standard Deviation 41.6 fL (36.4-46.3); Red Blood Count 3.22 M/uL (4.20-5.40); White Blood Count 4.91 K/ul (4.8-10.8)
[2025-04-17 07:07] LABS: Anion Gap 6 (3-11); Blood Urea Nitrogen 24 mg/dl (6-23); Calcium 8.5 mg/dl (8.6-10.3); Carbon Dioxide 30 mmol/L (21-32); Chloride 107 mmol/L (98-107); Creatinine Clr Calc Pharmacy 35.5 ml/min; Glucose 86 mg/dl (70-99(Fasting)); Potassium 3.4 mmol/L (3.5-5.1); Sodium 143 mmol/L (136-145)
--- NOTE | 2025-04-17 08:10 | Hospitalist Progress Note ---
"Date of Service April 17, 2025 Assessment & Plan (1) Intractable abdominal pain: (2) Anxiety: (3) Hypertension: (4) Queen esophagus: (5) Hyperlipidemia: Plan 74 y/o F w/ PMHx of HLD, HTN, CAD, Queen esophagus, and recent ureteral stent placement. Pt has recent admission from 03/22 - 03/26 due to left ureter herniation with severe hydronephrosis and had a left ureteral stent placed on 03/22 and was d/c to rehab at that time. Pt was re-admitted from 03/29-04/05 for intractable abdominal pain. A repeat CT 04/01 confirmed proper stent placement + the presence of an aortic aneurysm. Pt represented to the hospital on 04/14 #Intractable abdominal Pain - Resulting in continual readmission; CTAP 04/14 w/out any acute processes, consistent with 04/01 -GI Consulted: Encourage Vascular consult -Vascular Surgery Consulted -IVF NSS 500mL Q6H -Nausea: IV Zofran Q6H prn -Tylenol 650 po Q4H prn mild/mod pain, Ultram 50mg PO Q4H prn pain -CBC, BMP #Dyspnea - Pt noted some SOB 04/17; Biofire in ED negative; CXR 04/14 neg acute changes; 04/15 ESR & CRP negative -CRP, ESR -Albuterol Hfa Q6H prn -Supplemental O2 prn, ween as able #Hypocalcemia | Hypokalemia - -Replace Ca with 1500mg TUMs -Trend BMP #UTI | Hx of Lt Ureteral Herniation with Stent placement - Urinalysis 04/14 2+LE & 3+Blood; CTAP 04/14 reveals stable nephroureteral stent w/ persistent mild dilation of Lt renal pelvis -Urology Consulted: Pt to f/u on outpatient basis, signed off -Start Tamsulosin 0.4mg QAM; consider oxybutynin +/- pyridium if no improvement -IV Rocephin #Anxiety | Insomnia - pt acutely tearful, pt exereses extreme concern about returning to [facility] -Suspect uncontrolled anxiety may be contributing to pts abd pain -Psych Consulted: further recs to increase Ativan to 1mg BID or trial Klonopin if below schedule does not work; could consider trial of olanzapine 2.5mg po HS fo insomnia/nausea/appetite stimulation/anxiety - d/c trazodone if tried) -Paxil 25mg daily -Scheduled Ativan 0.5mg BID -Continue trazodone, Alprazolam #HTN | HLD - no acute concerns -Continue Amlodipine, Coreg, Crestor -PRN IV Hydralizine #GERD | Queen's Esophagus- no acute concerns -Continue Protonix BID -Famotidine 10mg PO BID -Carafate 1gm PO QID #AAA - 4.4cm on 04/01 CT; Pt w/ outpatient vascular f/u; CT 04/14 -Continue ASA chew daily VTE Proph: SCDs, Heparin - Pt admits she declined AM shot 04/15, states she will take in starting 04/16, has since been taking her shots Dispo: Med Tele - awaiting further evaluation -PT recommending Home Health PT follow-up -OT consulted Admission and Anticipated Discharge Date Admission Date: April 14, 2025 Subjective Pt was seen ambulating in the door way prior to laying back down in bed, she was in NAD. Pt states that she continues to have abdominal pain/discomfort, pt was encouraged to use tylenol for her pain. She additionally notes that she is no longer experiencing diarrhea and that her stools are more formed today than they were yesterday. Pt notes that she was able to talk with GI and states that she has been experiencing the most pain following her meals. Discussed with patient that vascular surgery would be consulted. Pt otherwise notes occasional SOB, current O2 Sat 97% on RA. Pt otherwise denies H/A, cough, sore throat, congestion, SOB, vomiting, diarrhea, and worsening weakness. Telemetry: Sinus 70s-80s overnight into AM Review of Systems Review of Systems: All systems reviewed & are unremarkable except as noted in Subjective Physical Exam Physical Exam: General: Pt is a 74 y/o underweight F in NAD in bed. VS: reviewed, unremarkable Skin: Warm and dry; no lesions or ulcerations Respiratory: CTA bilat. no adventitious sounds noted; Chest expansion is full and symmetrical Cardio: RRR no murmurs Abdomen: Round, normoactive BS x4, tenderness to light palpation MSK: FROM of extremities, no deformities Extremities: no edema Neuro: A&Ox4, cooperative Results & Data Results & Data Vital Signs (Past 12 Hours) Vital Signs Temp Pulse Pulse Resp BP Pulse Ox O2 Del Method 04/17/25 07:59 98.1 F 76 18 151/74 H 95 Room Air 04/17/25 07:59 68 04/17/25 03:17 98.1 F 74 16 131/83 96 Room Air 04/16/25 23:00 98.2 F 72 16 115/64 95 Room Air 04/16/25 22:03 75 Laboratory Results Reviewed: CBC, BMP, Albumin PG Care Time/CCT Total # of Minutes Spent Total Time Spent with Patient: Total time spent is greater than 50% in coordination of care (as documented) at patient's floor/unit and/or counseling patient: A total of 65 minutes were spent on patient care including direct patient contact (25mins), chart reviews, review + interpretation of labs, and coordination of care between providers. Coding Level of Care Code 07627 SUB INP/OBS CARE 3/50MIN Diagnoses Intractable abdominal pain R10.9 Anxiety F41.9 Hypertension I10 Queen esophagus K22.70 Hyperlipidemia E78.5"
[2025-04-17 08:32] LABS: Albumin Level 3.5 gm/dl (3.4-5.0)
[2025-04-17] MEDS: PARoxetine HCl CONTROLLED REL 12.5 MG TABCR PO SCH (09:19)
[2025-04-17] MEDS: LORazepam 0.5 MG TAB PO SCH (09:25)
--- NOTE | 2025-04-17 09:33 | Gastroenterology Progress Note ---
Date of Service April 17, 2025 Assessment & Plan (1) Abdominal pain: Plan Patient with ongoing issues with abdominal pain. she also reports some looser stools. stool studies unremarkable. - start carafate 1 gm qid. - continue with protonix 40mg bid and famotidine 10mg bid. - recommend vascular surgical evaluation for CTA findings. - patient is not interested in a colonoscopy. Would not repeat EGD given one earlier this year for the same concerns. Admission and Anticipated Discharge Date Admission Date: April 14, 2025 Supervising Physician Co-Signing Physician Notes I personally saw and examined the patient. I have reviewed the chart and agree with the documentation provided by the ICE CREAM MACHINE OPERATOR including discussion about the assessment, treatment and plan. Briefly, she really has had a phobia with pain 30 to 45 minutes after eating. She states she is hungry she states she wants to eat. But every time she eats, 30 to 45 minutes later she has severe pain. 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 CT has been unchanged. We would like vascular to comment on her situation to see if she is amenable to any therapy for her high-grade celiac and SMA stenosis noting that there are collaterals present. Subjective she has ongoing midepigastric pain. she was able to eat breakfast without issues. no nausea, vomiting. Only pain. she has upwards of 3 bowel movements daily. stool studies were unremarkable. no new concerns. Review of Systems Review of Systems: All systems reviewed & are unremarkable except as noted in HPI & below Physical Exam Constitutional: WD/WN, vitals as above Respiratory: normal respiratory effort, lungs clear to auscultation Cardiovascular: Rate/Rhythm: regular rate and regular rhythm Gastrointestinal (Abdomen): midepigastric tenderness, no guarding, soft, normal bowel sounds. Psychiatric: Orientation: alert and oriented x 3 Results & Data Results & Data Vital Signs (Past 12 Hours) Vital Signs Temp Pulse Pulse Resp BP Pulse Ox O2 Del Method 04/17/25 07:59 98.1 F 76 18 151/74 H 95 Room Air 04/17/25 07:59 68 04/17/25 03:17 98.1 F 74 16 131/83 96 Room Air 04/16/25 23:00 98.2 F 72 16 115/64 95 Room Air 04/16/25 22:03 75 Coding Level of Care Code 81511 SUB INP/OBS CARE 2/35MIN Diagnoses Abdominal pain R10.84 Abdominal location: generalized (1) Abdominal pain Abdominal location: generalized Qualified Code(s): R10.84 - Generalized abdominal pain
--- NOTE | 2025-04-17 11:24 | Vascular Surgery Consultation ---
Date of Consultation April 17, 2025 Assessment & Plan (1) Intractable abdominal pain: Ms. Chavis has a long standing history of abdominal pain, requiring many visits to providers/ED over the past several years, and recently associated with weight loss of about 8-10 pounds, and characteristics that suggest pain possibly from stenoses in her mesenteric arteries (post prandial pain, fear of eating, weight loss, with history of smoking, carotid artery stenosis/occlusion, HLD, CAD). CTA suggests severe stenosis at origin of celiac artery, and shows heavy calcification, which could be causing other areas of stenoses we cannot fully see. We would like to proceed with aortogram for better evaluation of her mesenteric arteries, and possible intervention, depending on findings. We will have to coordinate with OR time and anesthesia with timing likely Tuesday (although could look at Tuesday depending on availability). In the meantime, continue aspirin and statin, as well as pain control per primary team. (2) AAA (abdominal aortic aneurysm) without rupture: descending TAA at 4.4cm and infrarenal at 3.1, both asymptomatic and stable from multiple prior CT scans. Can follow up as outpatient. History of Present Illness Reason for Consultation: post prandial abdominal pain Attending Physician: Gurpreet Tee MD History of Present Illness Faith Chavis is a pleasant 74 year old female with history of TAA and small infrarenal AAA, admitted with several month history of recurrent abdominal pain, who we are being asked to evaluate for possible mesenteric ischemia. History was obtained from the patient, as well as her medical record. She has a past medical history of descending TAA, small infrarenal AAA, hyperlipidemia, HTN, CAD, Queen esophagus, colon cancer s/p resection, history of recent left ureter herniation with severe hydronephrosis, now s/p left ureteral stent (03/22/25), and long standing history of abdominal pain, with numerous ER visits/admissions over the past 3-4 years, who presented to [facility] [place] on 04/14 with intractable abdominal pain, last admission for similar symptoms 04/05. In the ED she noted that besides her worsening abdominal pain, she also noted blood in her urine. Work up in the ED included UA, which was positive for 3+ blood and 2+ LE, with no growth on culture. CTA abdomen/pelvis was ordered to check ureteral stent, which showed stable ureteral stent with persistent ,mild dilation of left renal pelvis. It also noted heavy mixed calcified and noncalcified atherosclerotic disease, including the origin of the celiac artery. She continues on IV rocephin for UTI. She has been seen by GI in consultation, with no current plans for scope as she has had EGD within the past year for same symptoms. Vascular surgery consultation was recommended in setting of findings on CTA regarding her mesenteric stenoses. She reports that she has had long standing chronic abdominal pain. She used to weight 130 pounds before she had colon cancer (diagnosed in 2022). More recently she has had several admissions for abdominal pain. She states the pain is associated with nausea. The pain does not happen during eating, but does start within a couple of minutes after eating. She describes the pain as an "achy" pain. She states she is nervous to eat because she knows it will hurt, but also does not want to lose any more weight. In looking back over the past year she has slowly been losing weight (from 46kg to 41-42kg). She does not note anything that makes the pain better once it starts. She does not note any difference with changing diet in the pain (i.e. liquid vs solid food). She does not any difference in pain with positioning. She states she can feel the pain start in the right abdomen and travel over to the middle of her stomach. She has had diarrhea in the past but none recently. She denies any blood in her stools. She is a former smoker. She has history of carotid artery occlusion on the left. She is on aspirin and a statin. Allergies Allergy/AdvReac Type Severity Reaction Status Date / Time salicylates AdvReac Intermediate INTOLERANCE Verified 03/29/25 17:32 Home Medications Medication Instructions Recorded Confirmed Type albuterol sulfate 90 mcg/actuation 2 puff inhalation Q6H PRN 08/23/22 03/29/25 History aerosol inhaler Shortness Of Breath Or Wheezing alprazolam 0.25 mg tablet 0.25 mg PO TID PRN anxiety 05/02/23 03/29/25 History paroxetine HCl 12.5 mg 12.5 mg PO QAM 05/02/23 03/29/25 History tablet,extended release 24 hr aspirin 81 mg chewable tablet 81 mg PO QAM 09/21/23 03/29/25 History carvedilol 3.125 mg tablet 3.125 mg PO AMHS 09/21/23 03/29/25 History docusate sodium 100 mg capsule 100 mg PO BID PRN Constipation #30 02/25/24 03/29/25 Rx caps fluticasone propionate 50 2 spray NA DAILY PRN Nasal 02/25/24 03/29/25 Rx mcg/actuation nasal congestion #16 grams spray,suspension amlodipine 5 mg tablet 5 mg PO QAM 12/19/24 03/29/25 History rosuvastatin 20 mg tablet 20 mg PO QAM 12/19/24 03/29/25 History acetaminophen 500 mg tablet 500 mg PO Q4H PRN PAIN/FEVER 02/27/25 03/29/25 History (Tylenol Extra Strength) trazodone 50 mg tablet 50 mg PO HS PRN Sleep 02/27/25 03/29/25 History oxycodone 5 mg tablet 5 mg PO Q4H PRN pain #10 tabs 03/26/25 03/29/25 Rx polyethylene glycol 3350 17 gram 17 g PO DAILY PRN constipation #30 03/26/25 03/29/25 Rx oral powder packet (Miralax) ea pantoprazole 40 mg tablet,delayed 40 mg PO BID 03/30/25 03/30/25 History release famotidine 10 mg tablet 10 mg PO BID #30 tabs 04/05/25 Rx metronidazole 500 mg tablet 500 mg PO BID #7 tabs 04/05/25 Rx Patient History Medical History Hydronephrosis of left kidney Acute left flank pain Elevated troponin level not due myocardial infarction Syncope COVID-19 Sigmoid diverticulitis Diverticulitis Uncontrolled hypertension Acute dehydration Weakness AAA (abdominal aortic aneurysm) Surgical History S/P tubal ligation Family History Other Diabetes Social History Smoking Status: Former smoker Tobacco Type: Cigarettes packs per day: 0.5; Cigarettes Per Day: 1/4 ppd; Second Hand Exposure: No; Do You Dip or Chew Tobacco: No; Hx Alcohol Use: No Hx Substance Use: No Preferred Language: Bulgarian Communication Ability: Effective Construction Skills Teacher Required: No Beliefs That Will Affect Care: None Current Living Situation: Spouse Current Living Situation Comment: [facility]. Feels Safe at Home: Yes Assistive Devices: Cane and Walker Review of Systems Constitutional: denies fevers, chills, sweats Respiratory: denies shortness of breath, coughing, wheezing Cardiovascular: Additional Comments: denies chest pain, palpitations, extremity edema Gastrointestinal: see HPI Genitourinary: see HPI, negative for dysuria Musculoskeletal: positive for leg numbness and weakness, negative for joint pain Integumentary: negative for itching, rashes, ulcerations Neurologic: denies dizziness, history of stroke Psychiatric: positive for anxiety Physical Exam Constitutional: very thin, frail appearing, in no disstress Neck: + right carotid bruit supple, trachea midline Respiratory: normal respiratory effort CTAB Cardiovascular: RRR + right carotid bruit +2 radial pulses bilaterally +2 femoral pulses bilaterally +2 DP pulses bilaterally Gastrointestinal (Abdomen): flat, no distension, no bruits noted + tenderness RUQ and epigastric area, no rebound or guarding Skin: no rashes, lesions, or discolorations Psychiatric: AA&O x 3 Results & Data Vital Signs (Past 12 Hours) Vital Signs Temp Pulse Pulse Resp BP Pulse Ox O2 Del Method 04/17/25 11:13 36.7 C 74 18 120/69 97 Room Air 04/17/25 07:59 36.7 C 76 18 151/74 H 95 Room Air 04/17/25 07:59 68 04/17/25 03:17 36.7 C 74 16 131/83 96 Room Air Laboratory Results 04/17/25 04/16/25 06:13 18:40 WBC 4.91 RBC 3.22 L Hgb 9.9 L Hct 30.0 L MCV 93.2 MCH 30.7 MCHC 33.0 RDW Std Deviation 41.6 RDW Coeff of Yamile 12.2 Plt Count 111 L MPV 10.5 Sodium 143 Potassium 3.4 L Chloride 107 Carbon Dioxide 30 Anion Gap 6 BUN 24 H Creatinine 0.94 Est Cr Clr Drug Dosing 35.5 eGFR 64.47 BUN/Creatinine Ratio 25.5 H Glucose 86 Calcium 8.5 L Albumin 3.5 Stl C. cayetanensis PCR Not Detected Stool Rotavirus A PCR Not Detected Stl Adenov F 40/41 PCR Not Detected Stool Astrovirus (PCR) Not Detected Stool Campylobacter PCR Not Detected Stl C. diff Tox B Gene Negative Cdiff Gene Stl C. diff [id number]-[id number] NEGATIVE Stool Cryptosporidium PCR Not Detected Stl E.coli Shiga Tox PCR Not Detected Stl Enterotoxigenic E PCR Not Detected Stool EPEC (PCR) Not Detected Stool EAEC (PCR) Not Detected Stl E. histolytica PCR Not Detected Stool Giardia Lamblia PCR Not Detected Stool Salmonella PCR Not Detected Stool Sapovirus (PCR) Not Detected Stl P. shigelloides PCR Not Detected Stl Shigella/EIEC PCR Not Detected St Y.enterocolitica PCR Not Detected Stool Vibrio (PCR) Not Detected Stl Vibrio cholerae PCR Not Detected Stl Norovirus GI/GII PCR Not Detected Diagnostic Findings CTA abdomen/pelvis 04/14/2025: FINDINGS: Lower chest: No consolidation. No pleural effusion or pneumothorax. The lungs are emphysematous. Liver: No suspicious liver lesions. Portal veins appear patent. Gallbladder: No gallstones. No evidence of acute cholecystitis. Spleen: Normal size. Pancreas: No suspicious pancreatic lesions. The pancreatic duct is not dilated. Adrenal glands: No adrenal nodules. Kidneys: No hydronephrosis or obstructing renal stones. Left nephroureteral stent, without significant change in persistent mild dilation of the left renal pelvis from 04/01/2025. Bladder / Pelvic organs: Unremarkable. Bowel: No bowel obstruction. No abnormal bowel wall thickening. Postsurgical changes of the right hemicolon. Lymph nodes: No retroperitoneal, mesenteric, or pelvic lymphadenopathy. Peritoneum / Retroperitoneum: No free fluid or air within the abdomen. Vessels: Infrarenal aortic aneurysm not significantly changed, measuring 3.1 x 3.0 cm in size. Heavy mixed calcified and noncalcified aortoiliac atherosclerosis. Aneurysm of the descending thoracic aorta in the lower chest seen measures up to 4.7 cm in diameter. 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 There is high-grade focal stenosis of the origin of the right renal artery and mild proximal left renal artery stenosis. 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 No significant proximal SMA stenosis. No significant proximal EL stenosis. Nonaneurysmal iliac arteries bilaterally. The common and external iliac arteries are patent. Patent internal iliac arteries. Bones and soft tissues: No suspicious lesion in the bones. IMPRESSION: Aneurysmal dilation of the descending thoracic aorta and the infrarenal abdominal aorta again seen, as above. Diffuse atherosclerosis. High-grade stenosis at the origin of the right renal artery and the origin of the celiac artery. Left nephroureteral stent appears stable with persistent mild dilation of the left renal pelvis. Electronically signed by Ori Sanon 04-14-2025 4:52 PM Medications Administered Home Medications Medication Instructions Recorded Confirmed Last Taken albuterol sulfate 90 mcg/actuation 2 puff inhalation Q6H PRN 08/23/22 03/29/25 08/22/22 aerosol inhaler Shortness Of Breath Or Wheezing alprazolam 0.25 mg tablet 0.25 mg PO TID PRN anxiety 05/02/23 03/29/25 Unknown paroxetine HCl 12.5 mg 12.5 mg PO QAM 05/02/23 03/29/25 03/29/25 tablet,extended release 24 hr aspirin 81 mg chewable tablet 81 mg PO QAM 09/21/23 03/29/25 03/29/25 carvedilol 3.125 mg tablet 3.125 mg PO AMHS 09/21/23 03/29/25 03/29/25 08:00 docusate sodium 100 mg capsule 100 mg PO BID PRN Constipation #30 02/25/24 03/29/25 Unknown caps fluticasone propionate 50 2 spray NA DAILY PRN Nasal 02/25/24 03/29/25 Unknown mcg/actuation nasal congestion #16 grams spray,suspension amlodipine 5 mg tablet 5 mg PO QAM 12/19/24 03/29/25 Unknown rosuvastatin 20 mg tablet 20 mg PO QAM 12/19/24 03/29/25 03/29/25 acetaminophen 500 mg tablet 500 mg PO Q4H PRN PAIN/FEVER 02/27/25 03/29/25 02/27/25 08:00 (Tylenol Extra Strength) trazodone 50 mg tablet 50 mg PO HS PRN Sleep 02/27/25 03/29/25 03/28/25 oxycodone 5 mg tablet 5 mg PO Q4H PRN pain #10 tabs 03/26/25 03/29/25 Unknown polyethylene glycol 3350 17 gram 17 g PO DAILY PRN constipation #30 03/26/25 03/29/25 Unknown oral powder packet (Miralax) ea pantoprazole 40 mg tablet,delayed 40 mg PO BID 03/30/25 03/30/25 Unknown release famotidine 10 mg tablet 10 mg PO BID #30 tabs 04/05/25 Unknown metronidazole 500 mg tablet 500 mg PO BID #7 tabs 04/05/25 Unknown Active Medications Generic Name Dose Route Start Last Admin Trade Name Freq PRN Reason Stop Dose Admin Acetaminophen 650 mg 04/14/25 14:31 04/17/25 11:26 Acetaminophen 325 Mg Tab PO 05/14/25 14:30 650 mg Q4H PRN Administration pain/fever Amlodipine Besylate 5 mg 04/15/25 09:00 04/17/25 09:20 Amlodipine Besylate 5 Mg Tab PO 05/15/25 08:59 5 mg QAM KEELY Administration Aspirin 81 mg 04/15/25 09:00 04/17/25 09:26 Aspirin 81 Mg Chew PO 05/15/25 08:59 81 mg QAM KEELY Administration Carvedilol 3.125 mg 04/14/25 21:00 04/17/25 09:19 Carvedilol 3.125 Mg Tab PO 05/14/25 20:59 3.125 mg AMHS KEELY Administration Famotidine 10 mg 04/14/25 21:00 04/17/25 09:19 Famotidine 10 Mg Tablet PO 05/14/25 20:59 10 mg BID KEELY Administration Heparin Sodium (Porcine) 5,000 units 04/14/25 22:00 04/17/25 09:26 Heparin Sod 5,000 Unit/0.5 Ml Vial SQ 05/14/25 21:59 5,000 units Q8 KEELY Administration Ceftriaxone Sodium 2,000 mg in 50 mls @ 100 mls/hr 04/14/25 16:00 04/16/25 17:19 Rocephin IV 04/24/25 15:59 Infused Q24H KEELY Infusion Lorazepam 0.5 mg 04/17/25 09:00 04/17/25 09:25 Lorazepam 0.5 Mg Tab PO 05/17/25 08:59 0.5 mg BID KEELY Administration Morphine Sulfate 2 mg 04/14/25 15:29 04/14/25 22:40 Morphine Sulfate 2 Mg/Ml Carp IV 04/28/25 15:28 2 mg Q2H PRN Administration Pain Ondansetron HCl 4 mg 04/14/25 14:31 04/17/25 09:26 Ondansetron Inj 2 Mg/Ml 2 Ml Vial IV 05/14/25 14:30 4 mg Q6H PRN Administration Nausea Oxycodone HCl 5 mg 04/14/25 14:28 04/16/25 10:44 Oxycodone Hcl Ir 5 Mg Tab (Immediate Release) PO 04/28/25 14:27 5 mg Q4H PRN Administration pain Pantoprazole Sodium 40 mg 04/14/25 21:00 04/17/25 09:19 Pantoprazole 40 Mg Tab PO 05/14/25 20:59 40 mg BID KEELY Administration Paroxetine HCl 25 mg 04/17/25 09:00 04/17/25 09:19 Paroxetine Hcl Controlled Rel 12.5 Mg Tabcr PO 05/17/25 08:59 25 mg QAM KEELY Administration Rosuvastatin Calcium 20 mg 04/15/25 09:00 04/17/25 09:20 Rosuvastatin Calcium 20 Mg Tab PO 05/15/25 08:59 20 mg QAM KEELY Administration Tamsulosin HCl 0.4 mg 04/15/25 12:15 04/17/25 09:19 Tamsulosin Hcl 0.4 Mg Cap PO 05/15/25 12:14 0.4 mg QAM KEELY Administration Trazodone HCl 100 mg 04/14/25 22:50 04/16/25 20:47 Trazodone Hcl 100 Mg Tab PO 05/14/25 14:27 100 mg HS PRN Administration Sleep PG Care Time/CCT Total # of Minutes Spent Total Time Spent with Patient: Total time spent is greater than 50% in coordination of care (as documented) at patient's floor/unit and/or counseling patient: [place] [address] INT INP/OBS CARE 2/55MIN Patient Type New History Detailed Exam Expanded Problem Focused Medical Decision Making Moderate Complexity Diagnoses Intractable abdominal pain R10.9 AAA (abdominal aortic aneurysm) without rupture I71.40
[2025-04-17] MEDS: SUCRALFATE 1 GM/10 ML UDC PO SCH (13:19)
[2025-04-17] MEDS: CALCIUM CARBONATE 500 MG CHEWABLE TAB PO ONE (14:08)
[2025-04-18 07:58] LABS: Hematocrit (blood only) 30.5 % (37.0-47.0); Hemoglobin 10.2 g/dL (12.0-16.0); Mean Corpuscular Hemoglobin 30.9 pg (25.0-34.0); Mean Corpuscular Volume 92.4 fL (80.0-100.0); Platelet Count 119 K/uL (130-400); RDW Standard Deviation 40.5 fL (36.4-46.3); Red Blood Count 3.30 M/uL (4.20-5.40); White Blood Count 4.60 K/ul (4.8-10.8)
--- NOTE | 2025-04-18 08:11 | Hospitalist Progress Note ---
"Date of Service April 18, 2025 Assessment & Plan (1) Intractable abdominal pain: (2) Anxiety: (3) Hypertension: (4) Queen esophagus: (5) Hyperlipidemia: Plan 74 y/o F w/ PMHx of HLD, HTN, CAD, Queen esophagus, and recent ureteral stent placement. Pt has recent admission from 03/22 - 03/26 due to left ureter herniation with severe hydronephrosis and had a left ureteral stent placed on 03/22 and was d/c to rehab at that time. Pt was re-admitted from 03/29-04/05 for intractable abdominal pain. A repeat CT 04/01 confirmed proper stent placement + the presence of an aortic aneurysm. Pt represented to the hospital on 04/14 #Intractable abdominal Pain - Resulting in serial readmissions; CTAP 04/14 w/out any acute processes, consistent with 04/01 -GI Consulted: Added Carafate, as below -Vascular Surgery Consulted; Likely Aortogram Tuesday pending availability, continue ASA, Statin, and Pain control -IVF NSS 500mL Q6H -Nausea: IV Zofran Q6H prn -Tylenol 650 po Q4H prn mild/mod pain, Ultram 50mg PO Q4H prn Severe pain Please give Tylenol FIRST. -CBC, BMP in AM #Dyspnea - Pt noted some SOB 04/17; [employer] in ED negative; CXR 04/14 neg acute changes; 04/15 ESR & CRP negative -CRP, ESR -Albuterol Hfa Q6H prn -Supplemental O2 prn, ween as able #Hypocalcemia | Hypokalemia - Asx; 04/18 8.5 -Trend BMP #UTI | Hx of Lt Ureteral Herniation with Stent placement - Urinalysis 04/14 2+LE & 3+Blood; CTAP 04/14 reveals stable nephroureteral stent w/ persistent mild dilation of Lt renal pelvis -Urology Consulted: Pt to f/u on outpatient basis, signed off -Start Tamsulosin 0.4mg QAM; consider oxybutynin +/- pyridium if no improvement -Abx completed #Anxiety | Insomnia - Pt remains anxious; expresses concern about returning to [facility] -Suspect uncontrolled anxiety may be contributing to pts abd pain -Psych Consulted: next step trial Klonopin if below schedule does not work; could consider trial of olanzapine 2.5mg po HS fo insomnia/nausea/appetite stimulation/anxiety - d/c trazodone if tried) -Paxil 25mg daily -Increase Ativan 1mg BID -Continue trazodone, Alprazolam #HTN | HLD - no acute concerns -Continue Amlodipine, Coreg, Crestor -PRN IV Hydralizine #GERD | Queen's Esophagus- no acute concerns -Continue Protonix BID -Famotidine 10mg PO BID -Carafate 1gm PO QID #AAA - 4.4cm on 04/01 CT; Pt w/ outpatient vascular f/u; CT 04/14 -Continue ASA chew daily VTE Proph: SCDs, Heparin - Pt admits she declined AM shot 04/15, states she will take in starting 04/16, has since been taking her shots Dispo: Med Tele - awaiting further evaluation -PT/OT recommending SNF placement Admission and Anticipated Discharge Date Admission Date: April 14, 2025 Subjective Pt was laying in bed today in NAD. Pt notes that she has been experiencing more anxiety than usual. She states that she continues to have abdominal pain. Pt otherwise denies cough, congestion, SOB, CP, Palpitations, Vomiting and diarrhea. Telemetry: Sinus 60s-70s overnight into AM Review of Systems Review of Systems: All systems reviewed & are unremarkable except as noted in Subjective Physical Exam Physical Exam: General: Pt is a 74 y/o underweight F in NAD in bed. VS: reviewed, unremarkable Skin: Warm and dry; no lesions or ulcerations Respiratory: CTA bilat. no adventitious sounds noted; Chest expansion is full and symmetrical Cardio: RRR no murmurs Abdomen: Round, normoactive BS x4, tenderness to light palpation MSK: FROM of extremities, no deformities Extremities: no edema Neuro: A&Ox4, cooperative Results & Data Results & Data Vital Signs (Past 12 Hours) Vital Signs Temp Pulse Pulse Resp BP BP Pulse Ox 04/18/25 07:47 98.1 F 66 18 168/86 H 94 04/18/25 06:45 73 04/18/25 02:15 98.2 F 74 18 155/77 H 95 04/17/25 22:11 97.7 F 77 18 134/76 96 04/17/25 21:31 77 O2 Del Method 04/18/25 07:47 Room Air 04/18/25 06:45 04/18/25 02:15 Room Air 04/17/25 22:11 Room Air 04/17/25 21:31 Laboratory Results Reviewed: CBC, BMP, ESR, CRP PG Care Time/CCT Total # of Minutes Spent Total Time Spent with Patient: Total time spent is greater than 50% in coordination of care (as documented) at patient's floor/unit and/or counseling patient: Coding Level of Care Code 22279 SUB INP/OBS CARE 2/35MIN Diagnoses Intractable abdominal pain R10.9 Anxiety F41.9 Hypertension I10 Queen esophagus K22.70 Hyperlipidemia E78.5"
[2025-04-18 08:29] LABS: Anion Gap 6.0 (3-11); Blood Urea Nitrogen 17.0 mg/dl (6-23); Calcium 8.5 mg/dl (8.6-10.3); Carbon Dioxide 30.0 mmol/L (21-32); Chloride 105.0 mmol/L (98-107); Creatinine Clr Calc Pharmacy 40.7 ml/min; Glucose 93.0 mg/dl (70-99(Fasting)); Potassium 3.3 mmol/L (3.5-5.1); Sodium 141.0 mmol/L (136-145)
[2025-04-18] MEDS: LORazepam 1 MG TAB PO STA (11:43)
[2025-04-18] MEDS ORDERED: CALCIUM GLUCONATE 1,000 MG/60 ML BAG IV SCH (14:15)
--- NOTE | 2025-04-18 16:00 | Vascular Surgery Progress Note ---
Date of Service April 18, 2025 Assessment & Plan (1) Mesenteric artery stenosis: Plan: I've reviewed her CTAs throughout her multiple hospital admissions. 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 The SMA is patent although there is a spike of aortic calcium extending into the lumen. It does not look flow limiting. Her post prandial abdominal pain is not typical for mesenteric ischemia and she has absolutely no food fear. She tells me she eats 3 complete meals a day (cleans her plate) and while she does develop some pain after eating she also has similar pain not related to meals. At this point I don't know that mesenteric revascularization is likely to improve her symptoms. It would be an elevated risk procedure given the significant degree of aortic calcification/thrombus noted throughout. Unfortunately it is not clear at least to me what is causing her symptoms but at this point I would not recommend angiogram and intervention. Will continue to follow along while she is in-house. Admission and Anticipated Discharge Date Admission Date: April 14, 2025 Subjective Patient seen around 130 today. She had eaten an entire plate of lunch (turkey and mashed potatoes). Was not having any significant postprandial abdominal pain although she was fairly certain she would experience some later in the day. Patient seen again at 330p. "I feel fabulous." Most of her pain seems to be on the right side, extending down toward the lower quadrant, and almost seems more musculoskeletal although she also occasionally states she feels her intestines "rumbling" under her skin. Has occasional nausea associated with her discomfort but says she never vomits. Physical Exam Physical Exam: Abdomen is soft, nontender, nondistended. There is a small hematoma in the subcutaneous space in the right lower quadrant, presumably from a heparin injection (?). Nontender. Results & Data Vital Signs (Past 12 Hours) Vital Signs Temp Pulse Pulse Resp BP BP Pulse Ox 04/18/25 14:56 36.7 C 81 18 151/72 H 96 04/18/25 13:30 79 04/18/25 08:00 04/18/25 07:47 36.7 C 66 18 168/86 H 94 04/18/25 06:45 73 O2 Del Method 04/18/25 14:56 Room Air 04/18/25 13:30 04/18/25 08:00 Room Air 04/18/25 07:47 Room Air 04/18/25 06:45 PG Care Time/CCT Total # of Minutes Spent Total Time Spent with Patient: Total time spent is greater than 50% in coordination of care (as documented) at patient's floor/unit and/or counseling patient:
--- NOTE | 2025-04-18 17:33 | Communication Note ---
Date of Service: April 18, 2025 Pt began experiencing new onset of delirium shortly after being increased to Ativan 1mg. A Head CT was performed 04/18 to R/O any acute processes and proved to be negative for acute changes. Ativan was discontinued, will consider moving away from Benzodiazepines in the future to consider other options. Prn 1:1 order additionally placed. Thank you, Vita Aguirre PA-C
[2025-04-18] MEDS: OPTIRAY 320 100ml IV ONE (17:51)
--- NOTE | 2025-04-18 18:07 | CT Scan Report ---
Clinical History: Altered mental status Technique: Axial computed tomography images were obtained of the brain without intravenous contrast. Comparison is made to the prior CT dated 02/12/2025 Findings: There is unchanged cerebral atrophy, within expected limits for the patient's age. Areas of decreased attenuation are seen within the periventricular white matter, likely representing chronic small vessel ischemic disease. There is no definite sign of acute or old infarction. No intracranial hemorrhage is evident. No definite mass lesion is seen on this noncontrast examination. There is no midline shift or other form of herniation. No hydrocephalus is seen. No fracture is identified. The orbits and the visualized paranasal sinuses appear unremarkable. The mastoid air cells appear clear. Impression: 1. Cerebral atrophy and chronic small vessel ischemic disease 2. Otherwise unremarkable noncontrast CT of the brain Electronically signed by Truong Mantilla 04-18-2025 6:07 PM
[2025-04-18] MEDS ORDERED: LORazepam 1 MG TAB PO SCH (21:00)
[2025-04-18] MEDS: clonazePAM 0.5 MG TAB PO STA (21:32)
--- NOTE | 2025-04-19 08:14 | Hospitalist Progress Note ---
"Date of Service April 19, 2025 Assessment & Plan (1) Intractable abdominal pain: (2) Anxiety: (3) Hypertension: (4) Queen esophagus: (5) Hyperlipidemia: Plan 74 y/o F w/ PMHx of HLD, HTN, CAD, Queen esophagus, and recent ureteral stent placement. Pt has recent admission from 03/22 - 03/26 due to left ureter herniation with severe hydronephrosis and had a left ureteral stent placed on 03/22 and was d/c to rehab at that time. Pt was re-admitted from 03/29-04/05 for intractable abdominal pain. A repeat CT 04/01 confirmed proper stent placement + the presence of an aortic aneurysm. Pt represented to the hospital on 04/14 #Acute Delirium | Confusion - Head CT 04/18 w/out acute findings, Cerebral atrophy + chronic small vessel disease present -Likely d/t recent transition to ativan -Ativan discontinued, Narcotics discontinued - R/O medication involvement -Urinalysis w/ reflex #Intractable abdominal Pain - Resulting in serial readmissions; CTAP 04/14 w/out any acute processes, consistent with 04/01 -GI Consulted: Added Carafate, as below -Vascular Surgery Consulted; further evaluation demonstrated that there was no change in pain despite being NPO, reducing likely lan that MAS is predominant cause of pain - Aortogram not appropriate at this time, risk > benefit -Nausea: IV Zofran Q6H prn -Tylenol 650 po Q4H prn mild/mod pain HOLD: Narcotics - R/O possibility that they're contributing to delirium, as above -CBC, BMP in AM #Dyspnea - RESOLVED, Pt noted some SOB 04/17; Biofire in ED negative; CXR 04/14 neg acute changes; 04/15 ESR & CRP negative -Albuterol Hfa Q6H prn -Supplemental O2 prn #Hypocalcemia | Hypokalemia - RESOLVED -Trend BMP #UTI | Hx of Lt Ureteral Herniation with Stent placement - RESOLVED; Urinalysis 04/14 2+LE & 3+Blood; CTAP 04/14 reveals stable nephroureteral stent w/ persistent mild dilation of Lt renal pelvis -Urology Consulted: Pt to f/u on outpatient basis, signed off -Start Tamsulosin 0.4mg QAM; consider oxybutynin +/- pyridium if no improvement #Anxiety | Insomnia - Pt remains anxious; expresses concern about returning to [facility] -Suspect uncontrolled anxiety may be contributing to pts abd pain -Psych Consulted: next step trial Klonopin if below schedule does not work; could consider trial of olanzapine 2.5mg po HS fo insomnia/nausea/appetite stimulation/anxiety - d/c trazodone if tried) -Paxil 25mg daily -Ativan discontinued, as per above -Continue trazodone #HTN | HLD - no acute concerns -Continue Amlodipine, Coreg, Crestor -PRN IV Hydralizine #GERD | Queen's Esophagus- no acute concerns -Continue Protonix BID -Famotidine 10mg PO BID -Carafate 1gm PO QID #AAA - 4.4cm on 04/01 CT; Pt w/ outpatient vascular f/u; CT 04/14 -Continue ASA chew daily VTE Proph: SCDs, Heparin - Pt admits she declined AM shot 04/15, states she will take in starting 04/16, has since been taking her shots Dispo: Med Tele - awaiting further evaluation -PT/OT recommending SNF placement Admission and Anticipated Discharge Date Admission Date: April 14, 2025 Subjective Pt was laying in bed today in NAD. Pt appeared tired and a bit confused. She was able to identify her location, the month, and the year, but was otherwise unable to recall the reasons for her current or recent hospital admissions. She stated that she believed that she was previously admitted for a broken shoulder. Overnight nursing note states that pt was restless, uncooperative, and yelling at staff. Pt does not recall any of these incidents this AM. Despite pt's altered statues, she denies cough, congestion, sore throat, CP, palpitations, N/V/D, and loss of appetite. When asked if her abdomen still hurts, she states it does. Telemetry: Sinus 70s-80s overnight, sinus 60s AM Review of Systems Review of Systems: All systems reviewed & are unremarkable except as noted in Subjective Physical Exam 2 Physical Exam: General: Pt is a 74 y/o underweight F in NAD in bed. VS: reviewed, unremarkable Skin: Warm and dry; no lesions or ulcerations Respiratory: CTA bilat. no adventitious sounds noted; Chest expansion is full and symmetrical Cardio: RRR no murmurs Abdomen: Round, normoactive BS x4, mild tenderness to palpation MSK: FROM of extremities, no deformities Extremities: no edema Neuro: A&Ox4, cooperative Results & Data Results & Data Vital Signs (Past 12 Hours) Vital Signs Temp Pulse Pulse Resp BP Pulse Ox O2 Del Method 04/19/25 08:05 98.2 F 70 20 127/72 96 Room Air 04/19/25 07:23 77 04/19/25 03:32 98.1 F 62 18 144/76 H 97 Room Air 04/18/25 21:34 77 Laboratory Results Reviewed: CBC, BMP Diagnostic Findings Reviewed: Head CT PG Care Time/CCT Total # of Minutes Spent Total Time Spent with Patient: Total time spent is greater than 50% in coordination of care (as documented) at patient's floor/unit and/or counseling patient: Coding Level of Care Code 70900 SUB INP/OBS CARE 3/50MIN Diagnoses Intractable abdominal pain R10.9 Anxiety F41.9 Hypertension I10 Queen esophagus K22.70 Hyperlipidemia E78.5"
[2025-04-19 09:04] LABS: Hematocrit (blood only) 32.3 % (37.0-47.0); Hemoglobin 11.0 g/dL (12.0-16.0); Immature Granulocytes # (auto) 0.02 K/uL (0.01-0.20); Immature Granulocytes % (auto) 0.4 %; Mean Corpuscular Hemoglobin 30.9 pg (25.0-34.0); Mean Corpuscular Volume 90.7 fL (80.0-100.0); Platelet Count 143 K/uL (130-400); RDW Standard Deviation 39.5 fL (36.4-46.3); Red Blood Count 3.56 M/uL (4.20-5.40); White Blood Count 5.43 K/ul (4.8-10.8)
[2025-04-19 09:20] LABS: Anion Gap 7.0 (3-11); Blood Urea Nitrogen 17.0 mg/dl (6-23); Calcium 9.0 mg/dl (8.6-10.3); Carbon Dioxide 30.0 mmol/L (21-32); Chloride 101.0 mmol/L (98-107); Creatinine Clr Calc Pharmacy 43.4 ml/min; Glucose 95.0 mg/dl (70-99(Fasting)); Potassium 3.6 mmol/L (3.5-5.1); Sodium 138.0 mmol/L (136-145)
--- NOTE | 2025-04-19 10:30 | Vascular Surgery Progress Note ---
Date of Service April 19, 2025 Assessment & Plan (1) Mesenteric artery stenosis: Plan: We have reviewed her CTAs throughout her multiple hospital admissions. 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 The SMA is patent although there is a spike of aortic calcium extending into the lumen. It does not look flow limiting. Her post prandial abdominal pain continues to not be typical for mesenteric ischemia, as evidenced by her pain pattern yesterday and this morning (still with same pain at same level of 7-8/10, despite being NPO). She may have some contributing element of pain related to her mesenteric artery stenosis, however it is likely not the only cause of her abdominal pain. At this point we don't know that mesenteric revascularization is likely to improve her symptoms. It would be an elevated risk procedure given the significant degree of aortic calcification/thrombus noted throughout, with risk of embolizing distal vessels in the process, such as legs/feet. Unfortunately it is not clear at least to me what is causing her symptoms but at this point we would not recommend angiogram and intervention. Will continue to follow along while she is in-house. Admission and Anticipated Discharge Date Admission Date: April 14, 2025 Subjective She is currently very sleepy this morning. Had episode of new onset delirium last night and was up frequently during the night. She had been NPO this morning and has not eaten anything yet. She currently complains of aching pain in her abdomen on the right upper/lower quadrant. No nausea or vomiting this morning. As noted yesterday when vascular saw her at lunch she had eaten her whole meal, and was without pain for at least 1-2 hours, per the patient, when we went back to see her later that afternoon. In regards to dinner last night, she states she ate about half her meal, because after that she didn't feel like eating anymore. She said she had a little bit of pain in the right side at that time as well. Physical Exam Physical Exam: thin, in no distress, sitting up in bed, appears tired mild abdominal pain on palpation Results & Data Vital Signs (Past 12 Hours) Vital Signs Temp Pulse Pulse Resp BP Pulse Ox O2 Del Method 04/19/25 09:33 Room Air 04/19/25 08:05 36.8 C 70 20 127/72 96 Room Air 04/19/25 07:23 77 04/19/25 03:32 36.7 C 62 18 144/76 H 97 Room Air Laboratory Results 04/14/25 12:40 Aerobic Blood Culture - Preliminary Blood No growth in Aerobic bottle after 48 hours. Anaerobic Blood Culture - Preliminary No growth in Anaerobic bottle after 48 hours. 04/14/25 12:46 Aerobic Blood Culture - Preliminary Blood No growth in Aerobic bottle after 48 hours. Anaerobic Blood Culture - Preliminary No growth in Anaerobic bottle after 48 hours. 04/19/25 08:45 WBC 5.43 RBC 3.56 L Hgb 11.0 L Hct 32.3 L MCV 90.7 MCH 30.9 MCHC 34.1 RDW Std Deviation 39.5 RDW Coeff of [place] 11.9 Plt Count 143 MPV 10.0 Immature Gran % (Auto) 0.4 Neut % (Auto) 67.1 Lymph % (Auto) 20.1 [place] % (Auto) 9.6 Eos % (Auto) 2.2 Baso % (Auto) 0.6 Neut # (Auto) 3.65 Lymph # (Auto) 1.09 L [place] # (Auto) 0.52 Eos # (Auto) 0.12 Baso # (Auto) 0.03 Immature Gran # (Auto) 0.02 Sodium 138 Potassium 3.6 Chloride 101 Carbon Dioxide 30 Anion Gap 7 BUN 17 Creatinine 0.77 Est Cr Clr Drug Dosing 43.4 eGFR 81.91 BUN/Creatinine Ratio 22.1 H Glucose 95 Calcium 9.0 Medications Administered Home Medications Medication Instructions Recorded Confirmed Last Taken albuterol sulfate 90 mcg/actuation 2 puff inhalation Q6H PRN 08/23/22 03/29/25 08/22/22 aerosol inhaler Shortness Of Breath Or Wheezing alprazolam 0.25 mg tablet 0.25 mg PO TID PRN anxiety 05/02/23 03/29/25 Unknown paroxetine HCl 12.5 mg 12.5 mg PO QAM 05/02/23 03/29/25 03/29/25 tablet,extended release 24 hr aspirin 81 mg chewable tablet 81 mg PO QAM 09/21/23 03/29/25 03/29/25 carvedilol 3.125 mg tablet 3.125 mg PO AMHS 09/21/23 03/29/25 03/29/25 08:00 docusate sodium 100 mg capsule 100 mg PO BID PRN Constipation #30 02/25/24 03/29/25 Unknown caps fluticasone propionate 50 2 spray NA DAILY PRN Nasal 02/25/24 03/29/25 Unknown mcg/actuation nasal congestion #16 grams spray,suspension amlodipine 5 mg tablet 5 mg PO QAM 12/19/24 03/29/25 Unknown rosuvastatin 20 mg tablet 20 mg PO QAM 12/19/24 03/29/25 03/29/25 acetaminophen 500 mg tablet 500 mg PO Q4H PRN PAIN/FEVER 02/27/25 03/29/25 02/27/25 08:00 (Tylenol Extra Strength) trazodone 50 mg tablet 50 mg PO HS PRN Sleep 02/27/25 03/29/25 03/28/25 oxycodone 5 mg tablet 5 mg PO Q4H PRN pain #10 tabs 03/26/25 03/29/25 Unknown polyethylene glycol 3350 17 gram 17 g PO DAILY PRN constipation #30 03/26/25 03/29/25 Unknown oral powder packet (Miralax) ea pantoprazole 40 mg tablet,delayed 40 mg PO BID 03/30/25 03/30/25 Unknown release famotidine 10 mg tablet 10 mg PO BID #30 tabs 04/05/25 Unknown metronidazole 500 mg tablet 500 mg PO BID #7 tabs 04/05/25 Unknown Active Medications Generic Name Dose Route Start Last Admin Trade Name Freq PRN Reason Stop Dose Admin Acetaminophen 650 mg 04/14/25 14:31 04/19/25 10:09 Acetaminophen 325 Mg Tab PO 05/14/25 14:30 650 mg Q4H PRN Administration pain/fever Amlodipine Besylate 5 mg 04/15/25 09:00 04/19/25 09:15 Amlodipine Besylate 5 Mg Tab PO 05/15/25 08:59 5 mg QAM KEELY Administration Aspirin 81 mg 04/15/25 09:00 04/19/25 10:12 Aspirin 81 Mg Chew PO 05/15/25 08:59 Not Given QAM KEELY Carvedilol 3.125 mg 04/14/25 21:00 04/19/25 09:16 Carvedilol 3.125 Mg Tab PO 05/14/25 20:59 3.125 mg AMHS KEELY Administration Famotidine 10 mg 04/14/25 21:00 04/19/25 09:16 Famotidine 10 Mg Tablet PO 05/14/25 20:59 10 mg BID KEELY Administration Heparin Sodium (Porcine) 5,000 units 04/14/25 22:00 04/19/25 07:05 Heparin Sod 5,000 Unit/0.5 Ml Vial SQ 05/14/25 21:59 Not Given Q8 KEELY Morphine Sulfate 2 mg 04/14/25 15:29 04/14/25 22:40 Morphine Sulfate 2 Mg/Ml Carp IV 04/28/25 15:28 2 mg Q2H PRN Administration Pain Ondansetron HCl 4 mg 04/14/25 14:31 04/18/25 20:23 Ondansetron Inj 2 Mg/Ml 2 Ml Vial IV 05/14/25 14:30 4 mg Q6H PRN Administration Nausea Pantoprazole Sodium 40 mg 04/14/25 21:00 04/19/25 09:16 Pantoprazole 40 Mg Tab PO 05/14/25 20:59 40 mg BID KEELY Administration Paroxetine HCl 25 mg 04/17/25 09:00 04/19/25 09:16 Paroxetine Hcl Controlled Rel 12.5 Mg Tabcr PO 05/17/25 08:59 25 mg QAM KEELY Administration Rosuvastatin Calcium 20 mg 04/15/25 09:00 04/19/25 09:17 Rosuvastatin Calcium 20 Mg Tab PO 05/15/25 08:59 20 mg QAM KEELY Administration Sucralfate 1 gm 04/17/25 13:00 04/19/25 10:06 Sucralfate 1 Gm/10 Ml Udc PO 05/17/25 12:59 Not Given QID KEELY Tamsulosin HCl 0.4 mg 04/15/25 12:15 04/19/25 09:17 Tamsulosin Hcl 0.4 Mg Cap PO 05/15/25 12:14 0.4 mg QAM KEELY Administration Tramadol HCl 50 mg 04/17/25 13:50 04/19/25 10:48 Tramadol Hcl 50 Mg Tablet PO 05/17/25 13:49 50 mg Q4H PRN Administration Pain Trazodone HCl 100 mg 04/14/25 22:50 04/17/25 20:07 Trazodone Hcl 100 Mg Tab PO 05/14/25 14:27 100 mg HS PRN Administration Sleep PG Care Time/CCT Total # of Minutes Spent Total Time Spent with Patient: Total time spent is greater than 50% in coordination of care (as documented) at patient's floor/unit and/or counseling patient:
[2025-04-19 15:34] LABS: Appearance Urine Clear (Clear); Bacteria Urine Automated None Seen (None Seen); Glucose Urine UA Negative (Negative); RBC Urine Automated >20 /hpf (0-2)
[2025-04-19] MEDS: KETOROLAC TROMETHAMINE 15 MG/ML VIAL IV ONE (17:41)
[2025-04-20 07:53] LABS: Hematocrit (blood only) 32.7 % (37.0-47.0); Hemoglobin 11.1 g/dL (12.0-16.0); Immature Granulocytes # (auto) 0.01 K/uL (0.01-0.20); Immature Granulocytes % (auto) 0.2 %; Mean Corpuscular Hemoglobin 31.0 pg (25.0-34.0); Mean Corpuscular Volume 91.3 fL (80.0-100.0); Platelet Count 152 K/uL (130-400); RDW Standard Deviation 39.5 fL (36.4-46.3); Red Blood Count 3.58 M/uL (4.20-5.40); White Blood Count 5.34 K/ul (4.8-10.8)
[2025-04-20 08:03] LABS: Anion Gap 9.0 (3-11); Blood Urea Nitrogen 29.0 mg/dl (6-23); Calcium 9.0 mg/dl (8.6-10.3); Carbon Dioxide 30.0 mmol/L (21-32); Chloride 101.0 mmol/L (98-107); Creatinine Clr Calc Pharmacy 26.9 ml/min; Glucose 86.0 mg/dl (70-99(Fasting)); Potassium 3.5 mmol/L (3.5-5.1); Sodium 140.0 mmol/L (136-145)
--- NOTE | 2025-04-20 08:06 | Hospitalist Progress Note ---
Date of Service April 20, 2025 Assessment & Plan (1) Intractable abdominal pain: (2) Anxiety: (3) Hypertension: (4) Queen esophagus: (5) Hyperlipidemia: Plan 74 y/o F w/ PMHx of HLD, HTN, CAD, Queen esophagus, and recent ureteral stent placement. Pt has recent admission from 03/22 - 03/26 due to left ureter herniation with severe hydronephrosis and had a left ureteral stent placed on 03/22 and was d/c to rehab at that time. Pt was re-admitted from 03/29-04/05 for intractable abdominal pain. A repeat CT 04/01 confirmed proper stent placement + the presence of an aortic aneurysm. Pt represented to the hospital on 04/14 #Intractable abdominal Pain - Resulting in serial readmissions; CTAP 04/14 w/out any acute processes, consistent with 04/01 -GI Consulted: Added Carafate, as below -Vascular Surgery Consulted; further evaluation demonstrated that there was no change in pain despite being NPO, reducing likely lan that MAS is predominant cause of pain - Aortogram not appropriate at this time, risk > benefit -Nausea: IV Zofran Q6H prn -Tylenol 650 po Q4H prn mild/mod pain HOLD: Narcotics - R/O possibility that they're contributing to delirium, as above -CBC, BMP in AM #Acute Delirium | Confusion - Head CT 04/18 w/out acute findings, Cerebral atrophy + chronic small vessel disease present; UA 04/20 +1LE, >20 Blood -Likely d/t recent transition to ativan -Ativan discontinued, Narcotics discontinued - R/O medication involvement -Urine Culture Pending #Dyspnea - RESOLVED, Pt noted some SOB 04/17; Biofire in ED negative; CXR 04/14 neg acute changes; 04/15 ESR & CRP negative -Albuterol Hfa Q6H prn -Supplemental O2 prn #Hypocalcemia | Hypokalemia - RESOLVED -Trend BMP #UTI | Hx of Lt Ureteral Herniation with Stent placement - RESOLVED; Urinalysis 04/14 2+LE & 3+Blood; CTAP 04/14 reveals stable nephroureteral stent w/ persistent mild dilation of Lt renal pelvis -Urology Consulted: Pt to f/u on outpatient basis, signed off -Start Tamsulosin 0.4mg QAM; consider Pyridium if no improvement -Start Oxybutynin #Anxiety | Insomnia - Pt remains anxious; expresses concern about returning to [facility] -Suspect uncontrolled anxiety may be contributing to pts abd pain -Psych Consulted: Trial Gabapentin; If fails consider Buspar -Gabapentin 100mg BID -Paxil 25mg daily -Ativan discontinued, as per above - avoid in future -Continue trazodone #HTN | HLD - no acute concerns -Continue Amlodipine, Coreg, Crestor -PRN IV Hydralizine #GERD | Queen's Esophagus- no acute concerns -Continue Protonix BID -Famotidine 10mg PO BID -Carafate 1gm PO QID - pt regularly refuses #AAA - 4.4cm on 04/01 CT; Pt w/ outpatient vascular f/u; CT 04/14 -Continue ASA chew daily VTE Proph: SCDs, Heparin - Pt admits she declined AM shot 04/15, states she will take in starting 04/16, has since been taking her shots irregularly Dispo: Transfer Med/Surg - awaiting safe dispo -PT/OT recommending SNF placement Admission and Anticipated Discharge Date Admission Date: April 14, 2025 Subjective Pt was laying in bed today in NAD. Pt states that she "doesn't really know what to do" with her pain. She notes that she continues to experience abdominal pain. She rates her current pain a 6/10 and notes that the pain has simply been going on for a "very long time". Pt additionally endorses some nausea. Pt was encouraged to take her Heparin shots and to take her Carafate as rx. She states that sometimes she refuses her medications because she doesn't feel like taking them when she has just woken up. Discussed the risks/benefits with the pt and encouraged her to take medications as prescribed. Pt otherwise denies cough, congestion, sore throat, SOB, CP, Palpitations, vomiting, diarrhea, and constipation. Telemetry: Sinus 60s - 70s, overnight into AM Review of Systems Review of Systems: All systems reviewed & are unremarkable except as noted in Subjective Physical Exam Physical Exam: General: Pt is a 74 y/o underweight F in NAD in bed. VS: reviewed, unremarkable 127/73 Skin: Warm and dry; no lesions or ulcerations Respiratory: CTA bilat. no adventitious sounds noted; Chest expansion is full and symmetrical Cardio: RRR no murmurs, Abdominal aorta bruits present Abdomen: Round, normoactive BS x4, mild tenderness to palpation MSK: FROM of extremities, no deformities Extremities: no edema Neuro: A&Ox4, cooperative Results & Data Results & Data Vital Signs (Past 12 Hours) Vital Signs Temp Pulse Pulse Resp BP Pulse Ox O2 Del Method 04/20/25 07:25 98.6 F 75 18 158/72 H 95 Room Air 04/20/25 03:11 97.9 F 61 15 133/70 94 Room Air 04/19/25 22:10 69 04/19/25 22:06 99.0 F 70 15 115/63 96 Room Air 04/19/25 20:15 Room Air Laboratory Results Reviewed: CBC, BMP PG Care Time/CCT Total # of Minutes Spent Total Time Spent with Patient: Total time spent is greater than 50% in coordination of care (as documented) at patient's floor/unit and/or counseling patient: A total of 60 minutes was spent on care between direct patient interaction (30 minutes), review of chart, review and interpretation of labs, documentation, and coordination of care. Coding Level of Care Code 02103 SUB INP/OBS CARE 3/50MIN Diagnoses Intractable abdominal pain R10.9 Anxiety F41.9 Hypertension I10 Queen esophagus K22.70 Hyperlipidemia E78.5
[2025-04-20] MEDS: DOCUSATE SODIUM 100 MG CAP PO PRN (10:05)
[2025-04-20] MEDS: SODIUM CHLORIDE 0.9% 1,000 ML IV ONE (10:13)
[2025-04-20] MEDS: GABAPENTIN 100 MG CAP PO SCH (13:13)
[2025-04-21 06:47] LABS: Hematocrit (blood only) 32.3 % (37.0-47.0); Hemoglobin 10.8 g/dL (12.0-16.0); Immature Granulocytes # (auto) 0.01 K/uL (0.01-0.20); Immature Granulocytes % (auto) 0.2 %; Mean Corpuscular Hemoglobin 30.6 pg (25.0-34.0); Mean Corpuscular Volume 91.5 fL (80.0-100.0); Platelet Count 147 K/uL (130-400); RDW Standard Deviation 40.4 fL (36.4-46.3); Red Blood Count 3.53 M/uL (4.20-5.40); White Blood Count 5.02 K/ul (4.8-10.8)
[2025-04-21 07:29] LABS: Anion Gap 6.0 (3-11); Blood Urea Nitrogen 29.0 mg/dl (6-23); Calcium 8.9 mg/dl (8.6-10.3); Carbon Dioxide 30.0 mmol/L (21-32); Chloride 106.0 mmol/L (98-107); Creatinine Clr Calc Pharmacy 38.9 ml/min; Glucose 89.0 mg/dl (70-99(Fasting)); Potassium 3.8 mmol/L (3.5-5.1); Sodium 142.0 mmol/L (136-145)
--- NOTE | 2025-04-21 08:42 | Hospitalist Progress Note ---
"Date of Service April 21, 2025 Assessment & Plan (1) Intractable abdominal pain: (2) Anxiety: (3) Hypertension: (4) Queen esophagus: (5) Hyperlipidemia: Plan 74 y/o F w/ PMHx of HLD, HTN, CAD, Queen esophagus, and recent ureteral stent placement. Pt has recent admission from 03/22 - 03/26 due to left ureter herniation with severe hydronephrosis and had a left ureteral stent placed on 03/22 and was d/c to rehab at that time. Pt was re-admitted from 03/29-04/05 for intractable abdominal pain. A repeat CT 04/01 confirmed proper stent placement + the presence of an aortic aneurysm. Pt represented to the hospital on 04/14 #Intractable abdominal Pain - Resulting in serial readmissions; CTAP 04/14 w/out any acute processes, consistent with 04/01 -Suspect functional abdominal pain -GI Consulted: Added Carafate, as below. Will see patient again on 04/22 -Vascular Surgery Consulted; further evaluation demonstrated that there was no change in pain despite being NPO, reducing likely lan that MAS is predominant cause of pain - Aortogram not appropriate at this time, risk > benefit -Nausea: IV Zofran Q6H prn -Tylenol 650 po Q4H prn mild/mod pain HOLD: Narcotics - contraindicated with likely diagnosis of functional abdominal pain -CBC, BMP in AM #Acute Delirium | Confusion - Head CT 04/18 w/out acute findings, Cerebral atrophy + chronic small vessel disease present; UA 04/20 +1LE, >20 Blood; 04/19 UA negative -Likely d/t recent transition to ativan -Ativan discontinued, Narcotics discontinued - R/O medication involvement #Dyspnea - RESOLVED, Pt noted some SOB 04/17; Biofire in ED negative; CXR 04/14 neg acute changes; 04/15 ESR & CRP negative -Albuterol Hfa Q6H prn -Supplemental O2 prn #Hypocalcemia | Hypokalemia - RESOLVED -Trend BMP #UTI | Hx of Lt Ureteral Herniation with Stent placement - RESOLVED; Urinalysis 04/14 2+LE & 3+Blood; CTAP 04/14 reveals stable nephroureteral stent w/ persistent mild dilation of Lt renal pelvis -Urology Consulted: Pt to f/u on outpatient basis, signed off -Start Tamsulosin 0.4mg QAM; consider Pyridium if no improvement -Start Oxybutynin #Anxiety | Insomnia - Pt remains anxious; expresses concern about returning to [facility] -Suspect uncontrolled anxiety may be contributing to pts abd pain -Psych Consulted: Trial Gabapentin; If fails consider Buspar -Gabapentin 100mg BID -Paxil 25mg daily -Ativan discontinued, as per above - avoid in future -Continue trazodone #HTN | HLD - no acute concerns -Continue Amlodipine, Coreg, Crestor -PRN IV Hydralizine #GERD | Queen's Esophagus- no acute concerns -Continue Protonix BID -Famotidine 10mg PO BID -Carafate 1gm PO QID - pt regularly refuses #AAA - 4.4cm on 04/01 CT; Pt w/ outpatient vascular f/u; CT 04/14 -Continue ASA chew daily VTE Proph: SCDs, Heparin - Pt admits she declined AM shot 04/15, states she will take in starting 04/16, has since been taking her shots irregularly Dispo: Med/Surg - awaiting final GI evaluation -PT/OT recommending SNF placement, patient declined is set up with [facility] home health services. If no issues or events overnight, and GI signed off, patient ready for discharge 04/22 Admission and Anticipated Discharge Date Admission Date: April 14, 2025 Subjective patient was laying in bed today in [facility]. Patient states that she continues to have abdominal pain, and notes that the pain is worse when she eats approximately 30 minutes later. Patient states that 30 minutes after eating she becomes very nauseous and it is very uncomfortable and notes that the pain often radiates up into her chest. Patient otherwise denies cough, congestion, sore throat, shortness of breath, palpitations, diarrhea, constipation. nursing staff notes that patient often has episodes of crying around 3 PM where she states that she is in a lot of pain. Review of Systems Review of Systems: All systems reviewed & are unremarkable except as noted in Subjective Physical Exam Physical Exam: General: Pt is a 74 y/o underweight F in NAD in bed. VS: reviewed, unremarkable Skin: Warm and dry; no lesions or ulcerations Respiratory: CTA bilat. no adventitious sounds noted; Chest expansion is full and symmetrical Cardio: RRR no murmurs, Abdominal aorta bruits present Abdomen: Round, normoactive BS x4, mild tenderness to palpation MSK: FROM of extremities, no deformities Extremities: no edema Neuro: A&Ox4, cooperative Results & Data Results & Data Vital Signs (Past 12 Hours) Vital Signs Temp Pulse Resp BP Pulse Ox O2 Del Method 04/21/25 07:22 98.4 F 67 18 128/72 97 Room Air 04/20/25 22:14 98.4 F 68 18 114/69 96 Room Air 04/20/25 21:10 Room Air Laboratory Results Reviewed: CBC, BMP PG Care Time/CCT Total # of Minutes Spent Total Time Spent with Patient: Total time spent is greater than 50% in coordination of care (as documented) at patient's floor/unit and/or counseling patient A total of 60 minutes was spent on patient care, between direct patient contact (25 minutes), review of chart, interpretation of labs, documentation, and coordination of care Coding Level of Care Code 23681 SUB INP/OBS CARE 3/50MIN Diagnoses Intractable abdominal pain R10.9 Anxiety F41.9 Hypertension I10 Queen esophagus K22.70 Hyperlipidemia E78.5"
[2025-04-22 06:40] LABS: Hematocrit (blood only) 33.5 % (37.0-47.0); Hemoglobin 11.0 g/dL (12.0-16.0); Immature Granulocytes # (auto) 0.01 K/uL (0.01-0.20); Immature Granulocytes % (auto) 0.2 %; Mean Corpuscular Hemoglobin 30.3 pg (25.0-34.0); Mean Corpuscular Volume 92.3 fL (80.0-100.0); Platelet Count 145 K/uL (130-400); RDW Standard Deviation 41.0 fL (36.4-46.3); Red Blood Count 3.63 M/uL (4.20-5.40); White Blood Count 5.38 K/ul (4.8-10.8)
[2025-04-22 07:07] LABS: Anion Gap 7.0 (3-11); Blood Urea Nitrogen 26.0 mg/dl (6-23); Calcium 9.1 mg/dl (8.6-10.3); Carbon Dioxide 31.0 mmol/L (21-32); Chloride 103.0 mmol/L (98-107); Creatinine Clr Calc Pharmacy 38.9 ml/min; Glucose 95.0 mg/dl (70-99(Fasting)); Potassium 3.7 mmol/L (3.5-5.1); Sodium 141.0 mmol/L (136-145)
--- NOTE | 2025-04-22 10:37 | Gastroenterology Progress Note ---
Date of Service April 22, 2025 Assessment & Plan (1) Abdominal pain: Plan Patient with ongoing abdominal pain, worse 30 minutes after eating. Discussed case with Dr. Avila. - continue with famotidine 10mg bid, protonix 40mg bid, and carafate 1 gm qid. - appreciate vascular input. they were uncertanin if mesenteric revascularization would improve her symptoms and were concerned at the increased risks associated with testing. Would consider a second opinion on this at a tertiary center. -Further recommendations to come with Supervising GI provider on medical rounds. Please see co-signature comments. Admission and Anticipated Discharge Date Admission Date: April 14, 2025 Supervising Physician Co-Signing Physician Notes Months of abdominal pain. She is fairly clear the symptoms began half an hour after she eats. 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 Has been seen by vascular who are not convinced this is vascular in nature and rightly point out the concerns for embolic disease kidneys legs if angio. Patient notes a fluttering sensation when he feels nervous in the abdomen. She is on trazodone and Paxil. This age group sometimes Remeron is of benefit. Would need to be off her trazodone. Consider switch. Recommend she might want to consider just a second vascular surgical opinion in regards to whether this could be vascular in nature. Functional disease is not excluded but the imaging studies and the report of pain a half an hour with an eating is suggestive of chronic intestinal angina. Subjective Patient reports that she has had ongoing abdominal pain. Seems to come on about 30 minutes after eating. she does report some dysphagia to foods, but has been eating. no nausea, vomiting, heartburn. Review of Systems Review of Systems: All systems reviewed & are unremarkable except as noted in HPI & below Physical Exam Constitutional: WD/WN, vitals as above Respiratory: normal respiratory effort, lungs clear to auscultation Cardiovascular: Rate/Rhythm: regular rate and regular rhythm Gastrointestinal (Abdomen): mid epigastric tenderness, no guarding, soft, normal bowel sounds. Psychiatric: Orientation: alert and oriented x 3 Results & Data Results & Data Vital Signs (Past 12 Hours) Vital Signs Temp Pulse Resp BP Pulse Ox O2 Del Method 04/22/25 08:10 98.4 F 66 20 162/75 H 98 Room Air Coding Level of Care Code 89663 SUB INP/OBS CARE 2/35MIN Diagnoses Abdominal pain R10.84 Abdominal location: generalized (1) Abdominal pain Abdominal location: generalized Qualified Code(s): R10.84 - Generalized abdominal pain
--- NOTE | 2025-04-22 11:50 | Hospitalist Progress Note ---
Date of Service April 22, 2025 Assessment & Plan (1) Intractable abdominal pain: Plan: -Suspect functional abdominal pain -GI Consulted: Added Carafate, as below. Will see patient again on 04/22 -Vascular Surgery Consulted; further evaluation demonstrated that there was no change in pain despite being NPO, reducing likely lan that MAS is predominant cause of pain - Aortogram not appropriate at this time, risk > benefit -Nausea: IV Zofran Q6H prn -Tylenol 650 po Q4H prn mild/mod pain HOLD: Narcotics - contraindicated with likely diagnosis of functional abdominal pain (2) Anxiety: Plan: -Suspect uncontrolled anxiety may be contributing to pts abd pain -Psych Consulted: Trial Gabapentin; If fails consider Buspar -Gabapentin 100mg BID -Paxil 25mg daily -Ativan discontinued, as per above - avoid in future -Continue trazodone (3) Hypertension: Plan: -Continue Amlodipine, Coreg, Crestor -PRN IV Hydralizine (4) Hyperlipidemia: (5) AAA (abdominal aortic aneurysm) without rupture: Plan: -4cm on 04/01 CT; Pt w/ outpatient vascular f/u; CT 04/14 -Continue ASA chew daily (6) Queen esophagus: Plan: -Continue Protonix BID -Famotidine 10mg PO BID -Carafate 1gm PO QID - pt regularly refuses (7) UTI (urinary tract infection): Plan: -RESOLVED; Urinalysis 04/14 2+LE & 3+Blood; CTAP 04/14 reveals stable nephroureteral stent w/ persistent mild dilation of Lt renal pelvis -Urology Consulted: Pt to f/u on outpatient basis, signed off -Start Tamsulosin 0.4mg QAM; consider Pyridium if no improvement -Start Oxybutynin Plan 74 y/o F w/ PMHx of HLD, HTN, CAD, Queen esophagus, and recent ureteral stent placement. Pt has recent admission from 03/22 - 03/26 due to left ureter herniation with severe hydronephrosis and had a left ureteral stent placed on 03/22 and was d/c to rehab at that time. Pt was re-admitted from 03/29-04/05 for intractable abdominal pain. A repeat CT 04/01 confirmed proper stent placement + the presence of an aortic aneurysm. Pt represented to the hospital on 04/14 VTE Proph: SCDs, Heparin - Pt admits she declined AM shot 04/15, states she will take in starting 04/16, has since been taking her shots irregularly Dispo: Med/Surg - awaiting final GI evaluation -PT/OT recommending SNF placement, patient declined is set up with [facility] home health services. If no issues or events overnight, and GI signed off, -patient ready for discharge 04/23 Admission and Anticipated Discharge Date Admission Date: April 14, 2025 Subjective No events overnight. Pt resting comfortably in bed. Review of Systems Review of Systems: CONST: Negative for fever, body aches and chills. HENT: Negative for neck pain/stiffness, headache, congestion, sore throat, swelling. EYES: Negative for discharge/pain or vision changes. RESP: Negative for cough/hemoptysis and shortness of breath. CV: Negative chest pain, difficulty breathing, palpitations. ABD: Negative pain, nausea, vomiting. : Negative increase frequency, dysuria, blood in urine or stool. MUSC: Negative for muscle aches, edema. SKIN: Negative rash, lesions/sores. NEURO: Negative headache, dizziness, weakness. Physical Exam Physical Exam: GENERAL APPEARANCE NAD, activity normal for age, well developed/ well nourished, no cyanosis, pallor, or diaphoresis. EYES lids/conjunctiva normal. EARS/NOSE/THROAT Mucous membranes moist, nares normal, lips/teeth normal uvula midline without oral pharyngeal erythema, exudate or swelling TMs normal bilaterally. No lymphangitis/lymphedema. HEAD/NECK normocephalic atraumatic, no facial trauma, neck is supple. RESPIRATORY respiratory effort normal, speaks in full sentences, no tripod position, no accessory muscle use. Lungs clear to auscultation without rhonchi, wheezes, rales CARDIAC Regular rate and rhythm, no edema. ABDOMINAL Soft, ND/NT. No evidence of fluid wave. No pulsatile masses on exam, rebound tenderness, Morataya sign or pain over Mcburney's point. MUSCLES/EXTREMITIES No abnormal range of motion, no swelling. SKIN Warm, pink and dry. No rashes, dermatoses, petechiae or lesions. NEUROLOGICAL Speech is clear and appropriate. Normal level of consciousness. Gait and coordination are normal. 5/5 strength in all extremities. PSYCH Normal mood and affect. Judgement/competence is appropriate Results & Data Results & Data Vital Signs (Past 12 Hours) Vital Signs Temp Pulse Resp BP Pulse Ox O2 Del Method 04/22/25 08:10 36.9 C 66 20 162/75 H 98 Room Air PG Care Time/CCT Total # of Minutes Spent Total Time Spent with Patient: Total time spent is greater than 50% in coordination of care (as documented) at patient's floor/unit and/or counseling patient: Coding Level of Care Code 84772 SUB INP/OBS CARE 2/35MIN Diagnoses Intractable abdominal pain R10.9 Anxiety F41.9 Hypertension I10 Hyperlipidemia E78.5 AAA (abdominal aortic aneurysm) without rupture I71.40 Queen esophagus K22.70 UTI (urinary tract infection) N39.0
[2025-04-22] MEDS: POLYETHYLENE (MIRALAX) 17 GM PACK PO SCH (16:30)
[2025-04-23 07:51] VITALS: PULSE 67; RESP 16; TEMP 98.2; O2SAT 96
--- NOTE | 2025-04-23 09:20 | Discharge Summary ---
Discharge Summary Date of Service April 23, 2025 Principal Dx & Hospital Course #1 = Principal Diagnosis (1) Intractable abdominal pain: -Suspect functional abdominal pain -GI Consulted: Added Carafate, as below. Will see patient again on 04/22 -Vascular Surgery Consulted; further evaluation demonstrated that there was no change in pain despite being NPO, reducing likely lan that MAS is predominant cause of pain - Aortogram not appropriate at this time, risk > benefit -Nausea: IV Zofran Q6H prn -Tylenol 650 po Q4H prn mild/mod pain HOLD: Narcotics - contraindicated with likely diagnosis of functional abdominal pain (2) Anxiety: -Suspect uncontrolled anxiety may be contributing to pts abd pain -Psych Consulted: Trial Gabapentin; If fails consider Buspar -Gabapentin 100mg BID -Paxil 25mg daily -Ativan discontinued, as per above - avoid in future -Continue trazodone (3) Hypertension: -Continue Amlodipine, Coreg, Crestor -PRN IV Hydralizine (4) Hyperlipidemia: (5) AAA (abdominal aortic aneurysm) without rupture: -4cm on 04/01 CT; Pt w/ outpatient vascular f/u; CT 04/14 -Continue ASA chew daily (6) Queen esophagus: -Continue Protonix BID -Famotidine 10mg PO BID -Carafate 1gm PO QID - pt regularly refuses (7) UTI (urinary tract infection): -RESOLVED; Urinalysis 04/14 2+LE & 3+Blood; CTAP 04/14 reveals stable nephroureteral stent w/ persistent mild dilation of Lt renal pelvis -Urology Consulted: Pt to f/u on outpatient basis, signed off -Start Tamsulosin 0.4mg QAM; consider Pyridium if no improvement -Start Oxybutynin Plan 74 y/o F w/ PMHx of HLD, HTN, CAD, Queen esophagus, and recent ureteral stent placement. Pt has recent admission from 03/22 - 03/26 due to left ureter herniation with severe hydronephrosis and had a left ureteral stent placed on 03/22 and was d/c to rehab at that time. Pt was re-admitted from 03/29-04/05 for intractable abdominal pain. A repeat CT 04/01 confirmed proper stent placement + the presence of an aortic aneurysm. Pt represented to the hospital on 04/14 VTE Proph: SCDs, Heparin - Pt admits she declined AM shot 04/15, states she will take in starting 04/16, has since been taking her shots irregularly Dispo: Med/Surg - awaiting final GI evaluation -PT/OT recommending SNF placement, patient declined is set up with [facility] home health services. If no issues or events overnight, and GI signed off, -patient ready for discharge 04/23 Admission HPI Per Admitting Provider Pt is a 74 y/o female with a PMH of HLD, HTN, CAD, Queen esophagus, and recent ureteral stent placement, left ureter herniation with severe hydronephrosis and had a left ureteral stent placed on 03/22, recent admission and discharge on 04/05 for treatment of intractable abdominal pain, noted to have 4.4 cm AAA, who presents with today with dyspnea and continued abdominal pain. Pt states the pain started this am and she noted blood in her urine. She has been breathing shallow due to the pain. In the ER her EKG and CXR were WNL. Her UA showed 2+ LE and 3 + blood. She was given morphine for her abdominal pain and had some relief. Due to her h/o of left ureter herniation and recent stent placement, CT a/p ordered and patient started on rocephin for empiric abx coverage. Urology also consulted. Discharge Exam GENERAL APPEARANCE NAD, activity normal for age, well developed/ well nourished, no cyanosis, pallor, or diaphoresis. EYES lids/conjunctiva normal. EARS/NOSE/THROAT Mucous membranes moist, nares normal, lips/teeth normal uvula midline without oral pharyngeal erythema, exudate or swelling TMs normal bilaterally. No lymphangitis/lymphedema. HEAD/NECK normocephalic atraumatic, no facial trauma, neck is supple. RESPIRATORY respiratory effort normal, speaks in full sentences, no tripod position, no accessory muscle use. Lungs clear to auscultation without rhonchi, wheezes, rales CARDIAC Regular rate and rhythm, no edema. ABDOMINAL Soft, ND/NT. No evidence of fluid wave. No pulsatile masses on exam, rebound tenderness, Morataya sign or pain over Mcburney's point. MUSCLES/EXTREMITIES No abnormal range of motion, no swelling. SKIN Warm, pink and dry. No rashes, dermatoses, petechiae or lesions. NEUROLOGICAL Speech is clear and appropriate. Normal level of consciousness. Gait and coordination are normal. 5/5 strength in all extremities. PSYCH Normal mood and affect. Judgement/competence is appropriate Discharge Plan Discharge Items Patient Disposition: Home - Self-Care Reason For Visit: DYSPNEA Discharge Diagnosis: Intractable abdominal pain Condition on Discharge: Good Activity: Resume your previous activity Non-emergency contact: Primary Care Provider Call non-emergency contact if: you have any medication questions Follow-up/Referrals: Francisco Quiroz DO [Physician] - 05/01/25 11:00 am PCP,NO [Physician] - Diet: Regular Addtl Attending Provider Instructions: Follow up with PMD in 2 weeks Pending Studies at Discharge: No Stand-Alone Forms: [employer], Smoking Cessation Medications and DC Order Prescriptions: New tamsulosin 0.4 mg Capsule 0.4 mg PO QAM Qty: 30 0RF gabapentin 100 mg Capsule 100 mg PO BID Qty: 60 0RF oxybutynin chloride 5 mg Tablet 5 mg PO BID Qty: 60 0RF Continued albuterol sulfate 90 mcg/actuation HFA aerosol inhaler 2 puff INHALATION Q6H PRN (Reason: Shortness Of Breath Or Wheezing) alprazolam 0.25 mg tablet 0.25 mg PO TID PRN (Reason: anxiety ) paroxetine HCl 12.5 mg tablet extended release 24 hr 12.5 mg PO QAM carvedilol 3.125 mg tablet 3.125 mg PO AMHS aspirin 81 mg Tablet,Chewable 81 mg PO QAM oxycodone 5 mg Tablet 5 mg PO Q4H PRN (Reason: pain) Qty: 10 0RF polyethylene glycol 3350 [Miralax] 17 gram Powder In Packet 17 g PO DAILY PRN (Reason: constipation) Qty: 30 0RF fluticasone propionate 50 mcg/actuation [place],Suspension 2 spray NA DAILY PRN (Reason: Nasal congestion) Qty: 16 0RF docusate sodium 100 mg Capsule 100 mg PO BID PRN (Reason: Constipation) Qty: 30 0RF rosuvastatin 20 mg tablet 20 mg PO QAM amlodipine 5 mg tablet 5 mg PO QAM Hold Instructions: Resume on 03/05/25. Discuss resuming with PCP Rx Instructions: HAS PREVIOUSLY BEEN ON HOLD, UNSURE IF STILL TAKING THIS MED. trazodone 50 mg Tablet 50 mg PO HS PRN (Reason: Sleep) acetaminophen [Tylenol Extra Strength] 500 mg tablet 500 mg PO Q4H PRN (Reason: PAIN/FEVER) pantoprazole 40 mg tablet,delayed release (DR/EC) 40 mg PO BID famotidine 10 mg Tablet 10 mg PO BID Qty: 30 0RF metronidazole 500 mg Tablet 500 mg PO BID Qty: 7 0RF Discharge Orders: Discharge Order (Routine); Ordered 04/23/25 Ordered By: Velasquez Pressley Admission Data Admit Date/Time: 04/14/25 14:31 Attending Provider: Velasquez Pressley Admit Provider: Velasquez Pressley Primary Care Provider: Adriel Whitaker Other Providers: [facility]; Velasquez Pressley; [address]; Jimbo Villafuerte; Siomara Gutierrez; Ines Mendez; Jerry Hinojosa; Pierce Cline; Milana Samuel; Peg Cuevas; Josep Salazar; Jerome Elizondo; Natacha Dey; Migdalia Bloom; Peg Abebe; Zoë Luis; Александр Bob; Nicola Staton; José Pinto; Javier Rodriguez; Elvi Britton; Vita Alex; Crystal Herndon; Viviana Devine; Raf De León; Yordy Gilliland; Vianey Davila; Delphine Contreras Jr; Sal Lowry; Codey Wesley; Jose Arreguin; Jenny Jiménez; Rahat Weaver I; France Pedersen; Chris Avila; Speedy Holley; Óscar Alonso; Shmuel King; Yajaira Mejía; Shar Sumner; Susan Baca [facility] Stay Data Consultations 04/14/25 14:33 ED Decision to Admit Stat 04/14/25 15:27 Consult Urology Routine 04/15/25 12:03 Consult Psychiatry Routine 04/16/25 12:52 Consult Gastroenterology Routine 04/17/25 10:24 Consult Vascular Surgery Routine Procedures Performed Operation Date: 04/22/25 11:55 <No data on this case meets the specified criteria> Diagnostic Imagining Performed 04/14/25 15:27 CTA abdomen pelvis w con [CT angio abdomen pelvis w con] Stat 04/18/25 17:[address] [CT head/brain wo/w con] Stat Pending Results Patient Have Any Pending Studies at Discharge: No Discharge Instructions Given to Patient (Per Discharging Provider) Follow up with PMD in 2 weeks Total Time Total Time Spent Total Time Spent (In Minutes): 50 Coding Level of Care Code 39114 INP/OBS DISCH >30 MIN Diagnoses Intractable abdominal pain R10.9 Anxiety F41.9 Hypertension I10 Hyperlipidemia E78.5 AAA (abdominal aortic aneurysm) without rupture I71.40 Queen esophagus K22.70 UTI (urinary tract infection) N39.0
[2025-04-23 09:24] VITALS: BP 105/61
--- NOTE | 2025-04-25 06:35 | Electrocardiogram Report ---
Test Reason : Blood Pressure : */* mmHG Vent. Rate : 77 BPM Atrial Rate : 77 BPM P-R Int : 190 ms QRS Dur : 74 ms QT Int : 394 ms P-R-T Axes : 80 33 91 degrees QTcB Int : 445 ms Normal sinus rhythm Possible Left atrial enlargement T wave abnormality, consider lateral ischemia Abnormal ECG When compared with ECG of 14-Apr-2025 12:04, T wave inversion now evident in Lateral leads Confirmed by Raul Zhou ([id number]) on 04/25/2025 6:35:25 AM Referred By: REFERRED SELF Confirmed By: Raul Zhou
== END 2025-04-23 13:15 | disposition home health service (06) | DRG 392 ==
LOC: ED 11:56 → SUATTDRO 14:31 → 2N 14:31

== ENCOUNTER 2025-04-25 14:06 | Observation (INO) ==
[2025-04-25 15:09] LABS: Hematocrit (blood only) 34.4 % (37.0-47.0); Hemoglobin 11.5 g/dL (12.0-16.0); Immature Granulocytes # (auto) 0.04 K/uL (0.01-0.20); Immature Granulocytes % (auto) 0.4 %; Mean Corpuscular Hemoglobin 31.2 pg (25.0-34.0); Mean Corpuscular Volume 93.2 fL (80.0-100.0); Platelet Count 193 K/uL (130-400); RDW Standard Deviation 42.6 fL (36.4-46.3); Red Blood Count 3.69 M/uL (4.20-5.40); White Blood Count 9.91 K/ul (4.8-10.8)
[2025-04-25 15:28] LABS: Alanine Aminotransferase 45.0 U/L (7-52); Albumin Globulin Ratio 1.5 (0.9-2); Albumin Level 4.1 gm/dl (3.4-5.0); Alkaline Phosphatase 64.0 U/L (34-104); Anion Gap 6.0 (3-11); Bilirubin,Total 0.4 mg/dl (0.2-1.0); Blood Urea Nitrogen 34.0 mg/dl (6-23); Calcium 9.2 mg/dl (8.6-10.3); Carbon Dioxide 31.0 mmol/L (21-32); Chloride 100.0 mmol/L (98-107); Creatinine Clr Calc Pharmacy 38.8 ml/min; Globulin 2.8 gm/dl (2.5-4.0); Glucose 103.0 mg/dl (70-99(Fasting)); Lipase 36.0 U/L (11-82); Potassium 4.1 mmol/L (3.5-5.1); Sodium 137.0 mmol/L (136-145); Total Protein 6.9 gm/dl (6.0-8.3)
--- NOTE | 2025-04-25 15:36 | Emergency Department Note ---
Impression & Plan Acute UTI (urinary tract infection), Generalized weakness, Fall from standing, Left sided abdominal pain ED Provider Note HISTORY OF PRESENT ILLNESS: Patient is a 74-year-old female presenting with left upper quadrant pain and left lower chest wall pain after a fall. Patient reports that this morning she had gotten up with her walker to get around her bedroom when her legs got very shaky and weak and she fell to the ground, landing on her left side on the ground. She states she did not hit her head or lose consciousness. She is not on any anticoagulation or antiplatelet therapies. She is currently complaining of left-sided pain. Denies any numbness or tingling or weakness in her extremities currently. Denies any nausea or vomiting. Denies any shortness of breath. ROS: as above PHYSICAL EXAM: Constitutional: Patient appears in no acute distress. HENT: Head: Normocephalic and atraumatic. Eyes: EOMI, PERRL Mouth/Throat: Mucous membranes moist. Neck: Trachea midline. Neck supple. No midline cervical spine tenderness palpation. Cardiovascular: RRR, No murmurs, rubs or gallops. Intact distal pulses. Pulmonary/Chest: No respiratory distress. Breath sounds clear and equal bilaterally. No wheezes or rales. Left lower chest wall is tender to palpation. No palpable crepitus. No evidence of flail chest or ecchymosis. Abdominal: Abdomen soft, no rebound or guarding. LUQ TTP Back: No midline spinal tenderness, no paraspinal tenderness, no CVA tenderness. Scattered abrasions to the back. Musculoskeletal: No edema, tenderness or deformity noted. Skin: Warm and dry. No rash, erythema, pallor or cyanosis Psychiatric: Appropriate mood and affect for situation. Neurological: Alert and keenly responsive. CN II-XII grossly intact, moving all extremities equally and fully. MDM: - Vitals signs stable. - History obtained via patient and EMS. History as above. - Chronic conditions affecting care: HLD; HTN; mesenteric artery stenosis; AAA - Differential diagnoses include, but are not limited to: Rib fractures; pneumothorax; splenic injury; hematoma; contusion; CVA; intracranial - Order placed for continuous cardiac monitoring. At this time, monitor showed rate of 60 bpm with normal sinus rhythm, per my interpretation. - External medical records reviewed. Discharge summary dated 04/23/2025 was reviewed. Patient was admitted at that time dyspnea and intractable abdominal pain. She had a urinary tract infection during her admission diagnosed on a urinalysis from 04/14. She completed a course of antibiotics in the hospital. - EKG image interpreted by myself showed normal sinus rhythm. Rate 64 bpm. QTc 412. No acute ischemic changes. - Laboratory workup interpreted by myself showed normal WBC; normal PT/INR; stable electrolytes; normal creatinine; normal AST/ALT; normal troponin; normal lipase - CT head wo contrast negative for acute pathology - CT cervical spine wo contrast negative for acute pathology - CT chest with IV contrast negative for acute traumatic injury. - CT abdomen/pelvis with IV contrast negative for acute traumatic injury. Did have left ureteral stents with low-lying proximal stent coiled at the UVJ with hydronephrosis. - UA with evidence of infection. Patient given 2 g IV Rocephin. Patient's previous urine culture from 04/19/2025 showed no growth to date. - Patient given 50 mcg IV fentanyl and 1 g IV Tylenol on arrival to the ER for pain management. - Discussion was had with lead case manager about patient's case and need for admission - Hospitalist consulted for admission - [facility] and [facility] ASSESSMENT AND PLAN: Diagnosis: Acute UTI; generalized weakness; fall from standing; left sided abdominal pain Plan: Admit Past Med/Surg History Problem List (Updated 04/22/25 @ 11:49 by Velasquez Pressley MD) UTI (urinary tract infection) AAA (abdominal aortic aneurysm) without rupture Insomnia TEJ (generalized anxiety disorder) Ureteral stent present Dyspnea (Acute) Abdominal pain, lower (Acute) Abdominal aortic aneurysm (AAA) greater than 5.0 cm in diameter in female S/P ureteral stent placement Colitis Acute hypokalemia (Acute) Intractable abdominal pain (Acute) Hypertension (Acute) Difficulty performing activity of daily living (ADL) (Acute) Fracture of shoulder (Acute) Abdominal pain (Acute) Abdominal pain (Acute) Proximal humerus fracture Acute hypokalemia Unable to care for self Opioid-induced constipation (Acute) Fecal impaction in rectum (Acute) Closed fracture of shoulder (Acute) Moderate protein-calorie malnutrition (Acute) Polypharmacy (Acute) Underweight (BMI < 18.5) Age-related physical debility (Acute) Frailty syndrome in geriatric patient (Acute) Simple chronic bronchitis Hyperlipidemia (Acute) 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) Hypertension (Chronic) 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) Carotid artery disease (Chronic) Hypertrophic cardiomyopathy (Chronic) Recurrent falls (Chronic) Anxiety (Chronic) Medical History Hydronephrosis of left kidney Acute left flank pain Elevated troponin level not due myocardial infarction Syncope COVID-19 Sigmoid diverticulitis Diverticulitis Uncontrolled hypertension Acute dehydration Weakness AAA (abdominal aortic aneurysm) Surgical History S/P tubal ligation Family History Other Diabetes Social History Smoking Status: Former smoker Tobacco Type: Cigarettes packs per day: 0.5; Cigarettes Per Day: 1/4 ppd; Second Hand Exposure: No; Do You Dip or Chew Tobacco: No; Hx Alcohol Use: No Hx Substance Use: No Preferred Language: Faroese Communication Ability: Effective Switcher Required: No Beliefs That Will Affect Care: None Current Living Situation: Spouse Current Living Situation Comment: [facility]. Feels Safe at Home: Yes Assistive Devices: Cane and Walker Allergies Allergies Allergy/AdvReac Type Severity Reaction Status Date / Time salicylates AdvReac Intermediate INTOLERANCE Verified 04/25/25 17:15 Home Meds Home Medications Medication Instructions Recorded Confirmed albuterol sulfate 90 mcg/actuation 2 puff inhalation Q6H PRN 08/23/22 04/25/25 aerosol inhaler Shortness Of Breath Or Wheezing alprazolam 0.25 mg tablet 0.25 mg PO TID PRN anxiety 05/02/23 04/25/25 paroxetine HCl 12.5 mg 12.5 mg PO QAM 05/02/23 04/25/25 tablet,extended release 24 hr aspirin 81 mg chewable tablet 81 mg PO QAM 09/21/23 04/25/25 carvedilol 3.125 mg tablet 3.125 mg PO AMHS 09/21/23 04/25/25 amlodipine 5 mg tablet 5 mg PO QAM 12/19/24 04/25/25 rosuvastatin 20 mg tablet 20 mg PO QAM 12/19/24 04/25/25 acetaminophen 500 mg tablet 500 mg PO Q4H PRN PAIN/FEVER 02/27/25 04/25/25 (Tylenol Extra Strength) trazodone 50 mg tablet 50 mg PO HS PRN Sleep 02/27/25 04/25/25 pantoprazole 40 mg tablet,delayed 40 mg PO BID 03/30/25 04/25/25 release Previous Rx's Medication Instructions Recorded docusate sodium 100 mg capsule 100 mg PO BID PRN Constipation #30 02/25/24 caps fluticasone propionate 50 2 spray NA DAILY PRN Nasal 02/25/24 mcg/actuation nasal congestion #16 grams spray,suspension oxycodone 5 mg tablet 5 mg PO Q4H PRN pain #10 tabs 03/26/25 polyethylene glycol 3350 17 gram 17 g PO DAILY PRN constipation #30 03/26/25 oral powder packet (Miralax) ea famotidine 10 mg tablet 10 mg PO BID #30 tabs 04/05/25 gabapentin 100 mg capsule 100 mg PO BID #60 caps 04/23/25 oxybutynin chloride 5 mg tablet 5 mg PO BID #60 tabs 04/23/25 tamsulosin 0.4 mg capsule 0.4 mg PO QAM #30 caps 04/23/25 Results & Data (ED) Vital Signs Vital Signs - 24 hr 04/25/25 14:12 04/25/25 14:13 04/25/25 16:34 Temperature 36.7 C Temperature Source Oral Pulse Rate 66 69 60 Respiratory Rate 18 12 Blood Pressure 137/71 173/90 H Blood Pressure Mean 93 121 Pulse Oximetry 98 98 Sepsis Recent Fever Within 48 Hours No Sepsis New/Unexplained Change in Mental Status No Sepsis Action Taken by Nursing No Action Required Laboratory Data 04/25/25 14:23 04/25/25 14:23 Lab Results 04/25/25 04/25/25 Range/Units 14:23 15:38 WBC 9.91 (4.8-10.8) K/ul RBC 3.69 L (4.20-5.40) M/uL Hgb 11.5 L (12.0-16.0) g/dL Hct 34.4 L (37.0-47.0) % MCV 93.2 (80.0-100.0) fL MCH 31.2 (25.0-34.0) pg MCHC 33.4 (32.0-36.0) g/dL RDW Std Deviation 42.6 (36.4-46.3) fL RDW Coeff of [place] 12.5 (11.5-14.5) % Plt Count 193 (130-400) K/uL MPV 10.3 (9.4-12.4) fL Immature Gran % (Auto) 0.4 % Neut % (Auto) 74.3 % Lymph % (Auto) 15.3 % [place] % (Auto) 8.3 % Eos % (Auto) 1.2 % Baso % (Auto) 0.5 % Neut # (Auto) 7.36 H (1.40-6.50) K/uL Lymph # (Auto) 1.52 (1.20-3.40) K/uL [place] # (Auto) 0.82 H (0.11-0.59) K/uL Eos # (Auto) 0.12 (0.00-0.50) K/uL Baso # (Auto) 0.05 (0.00-0.20) K/uL Immature Gran # (Auto) 0.04 (0.01-0.20) K/uL PT 10.9 (9.0-12.0) Seconds INR 1.0 (0.9-1.1) Sodium 137 (136-145) mmol/L Potassium 4.1 (3.5-5.1) mmol/L Chloride 100 (98-107) mmol/L Carbon Dioxide 31 (21-32) mmol/L Anion Gap 6 (3-11) BUN 34 H (6-23) mg/dl Creatinine 0.93 (0.6-1.2) mg/dl Est Cr Clr Drug Dosing 38.8 ml/min eGFR 65.30 BUN/Creatinine Ratio 36.6 H (10-20) Glucose 103 H (70-99(Fasting)) mg/dl Calcium 9.2 (8.6-10.3) mg/dl Total Bilirubin 0.4 (0.2-1.0) mg/dl AST 35 (13-39) U/L ALT 45 (7-52) U/L Alkaline Phosphatase 64 (34-104) U/L Troponin I High Sens 6.9 (0-14) pg/ml Total Protein 6.9 (6.0-8.3) gm/dl Albumin 4.1 (3.4-5.0) gm/dl Globulin 2.8 (2.5-4.0) gm/dl Albumin/Globulin Ratio 1.5 (0.9-2) Lipase 36 (11-82) U/L Urine Color Yellow Urine Appearance Clear (Clear) Urine pH 6.5 (4.5-7.5) Ur Specific [place] 1.018 (1.000-1.030) Urine Protein 2+ H (Negative) Urine Glucose (UA) Negative (Negative) Urine Ketones Negative (Negative) Urine Blood 2+ H (Negative) Urine Nitrite Negative (Negative) Urine Bilirubin Negative (Negative) Urine Urobilinogen Negative (Negative) Ur Leukocyte Esterase 2+ H (Negative) Urine WBC (Auto) 21-50 H (0-5) /hpf Urine RBC (Auto) >20 H (0-2) /hpf U Hyaline Cast (Auto) 3-5 H (0-2) /lpf U Epithel Cells (Auto) 3-5 H (0-2) /hpf Urine Bacteria (Auto) 2+ H (None Seen) Urine Comment Administered Medications Discontinued Medications Fentanyl Citrate (Fentanyl Citrate Pf 100 Mcg/2 Ml Vial) 50 mcg IV NOW STA Stop: 04/25/25 15:33 Last Admin: 04/25/25 15:40 Dose: 50 mcg Documented By: ben Acetaminophen (Ofirmev) 1,000 mg in 100 mls @ 400 mls/hr IV NOW STA Stop: 04/25/25 15:46 Last Infusion: 04/25/25 16:40 Dose: Infused Documented By: ben Admin: 04/25/25 16:16 Dose: 400 mls/hr Documented By: ben Ceftriaxone Sodium (Rocephin) 2,000 mg in 50 mls @ 100 mls/hr IV NOW STA Stop: 04/25/25 17:57 Last Admin: 04/25/25 17:44 Dose: 100 mls/hr Documented By: JUICE Ioversol (Optiray 320 100ml) 93 ml IV ONCE ONE Stop: 04/25/25 16:01 Last Admin: 04/25/25 16:01 Dose: 93 ml Documented By: ALEJANDRO Imaging Data Radiologist's Impression: Abdomen/Pelvis CT 04/25/25 15:11 EXAMINATION: Abdomen and pelvis CT with CLINICAL HISTORY: Fall, left-sided pain PRIORS: CT 8 04/14/2025 TECHNIQUE: Contiguous axial images were obtained through the abdomen and pelvis with the use of intravenous contrast. Sagittal and coronal reformations are supplied. 93 mL Optiray 320 IV was used. FINDINGS: The aorta was recently evaluated with CTA 04/14/2025. Allowing for this, no new aortic injury identified. No solid organ laceration or subcapsular hematoma. Postsurgical change of the bowel in the right upper quadrant. No hemoperitoneum, ascites or extraluminal gas. The kidneys enhance symmetrically. The left ureteral stent is present with the proximal coiled aspect slightly low-lying in the renal pelvis with mild to moderate hydronephrosis and hydroureter, unchanged. Distal tip terminates in the urinary bladder unchanged in position. Urinary bladder is distended and morphologically unremarkable. The uterus is not clearly identified and may be present and atrophic. No free fluid in the pelvis. Advanced diverticulosis of the sigmoid colon noted. Small amount of formed stool present in the colon. No dilated loops of bowel. No subcutaneous hematoma or inflammatory change in the abdominal wall or back. Mild to moderate osseous demineralization. No acute displaced fracture identified, allowing for this. Moderate facet hypertrophic changes throughout the lumbar spine, especially at the facet joints. No displaced left hip fracture. IMPRESSION: 1. No CT evidence of an acute or traumatic abnormality in the abdomen or pelvis. 2. Atherosclerotic abdominalaortic aneurysm which was recently evaluated with CTA 04/14/2025. Please refer to that report. 3. Left ureteral stent with possibly low-lying proximal stent coiled at the ureterovesicular junction with hydronephrosis. ACT 112: Positive. There are findings on this examination that require communication between the performing entity and the patient following Patient Test Result Information Act ([place] ACT 112) guidelines. Electronically signed by Sammi Huitron 04-25-2025 5:[address] 04/25/25 15:11 EXAM: CT cervical spine CLINICAL HISTORY: Arrived via EMS, left upper quadrant pain and fall TECHNIQUE: Contiguous axial images were obtained through the cervical spine without the use of intravenous contrast. Sagittal and coronal reformations are supplied. PRIORS: 02/12/2025, 12/19/2024, 12/25/2023 FINDINGS: Motion artifact degrades image quality. Calcified atherosclerotic disease present in the vertebral and carotid arteries. Mild osseous demineralization noted. Lordotic straightening is noted. Mild anterolisthesis of C4 on C5, unchanged. No acute cervical spine fracture or facet dislocation. Moderate uncovertebral hypertrophic changes with loss of intervertebral disc height at C4-C5 through C6-C7 with osteophytic neuroforaminal stenosis and anterior bridging osteophytes at these levels. Moderate facet hypertrophic changes noted. No prevertebral soft tissue swelling. Visualized trachea is patent. Moderate pulmonary emphysema in the upper lobes. IMPRESSION: 1. No CT evidence of an acute osseous abnormality. 2. Moderate degenerative change and osseous demineralization noted with unchanged alignment. 3. Calcified atherosclerotic disease of the vertebral and carotid arteries. Electronically signed by Sammi Huitron 04-25-2025 4:[address] 04/25/25 15:11 EXAMINATION: Chest CT with CLINICAL HISTORY: Fall, left-sided pain COMPARISON: 02/17/2025 TECHNIQUE: Contiguous axial images were obtained through the chest with the use of intravenous contrast. Sagittal and coronal reformations are supplied. 93 mL IV Optiray 320 was used. FINDINGS: Chest is hyperexpanded with moderate centrilobular pulmonary emphysema. Motion artifact degrades image quality. Advanced atherosclerotic disease of the thoracic aorta with mild focal enlargement of the ascending aortic arch measuring 3.1 cm versus 2.5 cm of the unaffected segment, image 81, series 12. Advanced atherosclerotic disease of the descending thoracic aorta with intimal thickening. Aneurysmal dilatation of the descending thoracic aorta at the diaphragmatic hiatus measuring 4.4 x 4.9 cm, image 53, series 2. No surrounding fluid. No retrosternal hematoma, sternal fracture, thoracic vertebral body or rib fracture. No pneumothorax. No inflammatory change or subcutaneous hematoma in the chest wall or back. Heart size within normal limits. No pleural or pericardial effusion. Trachea and mainstem bronchi are patent. Thyroid partly obscured and does not appear enlarged. Abdomen CT dictated under separate heading. PRESSION: 1. No CT evidence of an acute or traumatic abnormality in the chest. 2. Advanced atherosclerotic disease with aortic arch and distal thoracic aortic aneurysms, as above. ACT 112: Positive. There are findings on this examination that require communication between the performing entity and the patient following Patient Test Result Information Act ([place] ACT 112) guidelines. Electronically signed by Sammi Huitron 04-25-2025 4:[address] 04/25/25 15:11 Technique: Axial computed tomography images were obtained of the brain without intravenous contrast. Findings: There is diffuse cerebral atrophy, within expected limits for the patient's age. Areas of decreased attenuation are seen within the periventricular white matter, likely representing chronic small vessel ischemic disease. There is no definite sign of acute or old infarction. No intracranial hemorrhage is evident. No definite mass lesion is seen on this noncontrast examination. There is no midline shift or other form of herniation. No hydrocephalus is seen. No fracture is identified. The orbits and the visualized paranasal sinuses appear unremarkable. The mastoid air cells appear clear. Impression: 1. Cerebral atrophy and chronic small vessel ischemic disease 2. Otherwise unremarkable noncontrast CT of the brain Electronically signed by Truong Mantilla 04-25-2025 4:28 PM Discharge Plan Visit Data Chief Complaint: Fall Stated Complaint: Fall ED Provider: Annie Tierney Discharge Problem: Acute UTI (urinary tract infection), Generalized weakness, Fall from standing, Left sided abdominal pain Patient Disposition: Admitted As Inpatient Condition: Fair Forms Stand Alone Forms: [facility] Prescriptions Prescriptions: No Action albuterol sulfate 90 mcg/actuation HFA aerosol inhaler 2 puff INHALATION Q6H PRN (Reason: Shortness Of Breath Or Wheezing) alprazolam 0.25 mg tablet 0.25 mg PO TID PRN (Reason: anxiety ) paroxetine HCl 12.5 mg tablet extended release 24 hr 12.5 mg PO QAM carvedilol 3.125 mg tablet 3.125 mg PO AMHS aspirin 81 mg Tablet,Chewable 81 mg PO QAM oxycodone 5 mg Tablet 5 mg PO Q4H PRN (Reason: pain) Qty: 10 0RF polyethylene glycol 3350 [Miralax] 17 gram Powder In Packet 17 g PO DAILY PRN (Reason: constipation) Qty: 30 0RF tamsulosin 0.4 mg Capsule 0.4 mg PO QAM Qty: 30 0RF gabapentin 100 mg Capsule 100 mg PO BID Qty: 60 0RF oxybutynin chloride 5 mg Tablet 5 mg PO BID Qty: 60 0RF fluticasone propionate 50 mcg/actuation [place],Suspension 2 spray NA DAILY PRN (Reason: Nasal congestion) Qty: 16 0RF docusate sodium 100 mg Capsule 100 mg PO BID PRN (Reason: Constipation) Qty: 30 0RF rosuvastatin 20 mg tablet 20 mg PO QAM amlodipine 5 mg tablet 5 mg PO QAM Hold Instructions: Resume on 03/05/25. Discuss resuming with PCP Rx Instructions: HAS PREVIOUSLY BEEN ON HOLD, UNSURE IF STILL TAKING THIS MED. trazodone 50 mg Tablet 50 mg PO HS PRN (Reason: Sleep) acetaminophen [Tylenol Extra Strength] 500 mg tablet 500 mg PO Q4H PRN (Reason: PAIN/FEVER) pantoprazole 40 mg tablet,delayed release (DR/EC) 40 mg PO BID famotidine 10 mg Tablet 10 mg PO BID Qty: 30 0RF Referrals Referrals: Adriel Whitaker MD [Primary Care Provider] -
[2025-04-25 15:43] LABS: INR 1.0 (0.9-1.1); Prothrombin Time 10.9 Seconds (9.0-12.0)
[2025-04-25] MEDS: OPTIRAY 320 100ml IV ONE (16:01)
[2025-04-25 16:11] LABS: Appearance Urine Clear (Clear); Bacteria Urine Automated 2+ (None Seen); Glucose Urine UA Negative (Negative); RBC Urine Automated >20 /hpf (0-2); WBC Urine Automated 21-50 /hpf (0-5)
[2025-04-25] MEDS: ACETAMINOPHEN 1,000 MG/100 ML VIAL IV STA (16:16)
--- NOTE | 2025-04-25 16:30 | CT Scan Report ---
Technique: Axial computed tomography images were obtained of the brain without intravenous contrast. Findings: There is diffuse cerebral atrophy, within expected limits for the patient's age. Areas of decreased attenuation are seen within the periventricular white matter, likely representing chronic small vessel ischemic disease. There is no definite sign of acute or old infarction. No intracranial hemorrhage is evident. No definite mass lesion is seen on this noncontrast examination. There is no midline shift or other form of herniation. No hydrocephalus is seen. No fracture is identified. The orbits and the visualized paranasal sinuses appear unremarkable. The mastoid air cells appear clear. Impression: 1. Cerebral atrophy and chronic small vessel ischemic disease 2. Otherwise unremarkable noncontrast CT of the brain Electronically signed by Truong Mantilla 04-25-2025 4:28 PM
--- NOTE | 2025-04-25 16:50 | CT Scan Report ---
EXAM: CT cervical spine CLINICAL HISTORY: Arrived via EMS, left upper quadrant pain and fall TECHNIQUE: Contiguous axial images were obtained through the cervical spine without the use of intravenous contrast. Sagittal and coronal reformations are supplied. PRIORS: 02/12/2025, 12/19/2024, 12/25/2023 FINDINGS: Motion artifact degrades image quality. Calcified atherosclerotic disease present in the vertebral and carotid arteries. Mild osseous demineralization noted. Lordotic straightening is noted. Mild anterolisthesis of C4 on C5, unchanged. No acute cervical spine fracture or facet dislocation. Moderate uncovertebral hypertrophic changes with loss of intervertebral disc height at C4-C5 through C6-C7 with osteophytic neuroforaminal stenosis and anterior bridging osteophytes at these levels. Moderate facet hypertrophic changes noted. No prevertebral soft tissue swelling. Visualized trachea is patent. Moderate pulmonary emphysema in the upper lobes. IMPRESSION: 1. No CT evidence of an acute osseous abnormality. 2. Moderate degenerative change and osseous demineralization noted with unchanged alignment. 3. Calcified atherosclerotic disease of the vertebral and carotid arteries. Electronically signed by Sammi Huitron 04-25-2025 4:49 PM
--- NOTE | 2025-04-25 16:55 | CT Scan Report ---
EXAMINATION: Chest CT with CLINICAL HISTORY: Fall, left-sided pain COMPARISON: 02/17/2025 TECHNIQUE: Contiguous axial images were obtained through the chest with the use of intravenous contrast. Sagittal and coronal reformations are supplied. 93 mL IV Optiray 320 was used. FINDINGS: Chest is hyperexpanded with moderate centrilobular pulmonary emphysema. Motion artifact degrades image quality. Advanced atherosclerotic disease of the thoracic aorta with mild focal enlargement of the ascending aortic arch measuring 3.1 cm versus 2.5 cm of the unaffected segment, image 81, series 12. Advanced atherosclerotic disease of the descending thoracic aorta with intimal thickening. Aneurysmal dilatation of the descending thoracic aorta at the diaphragmatic hiatus measuring 4.4 x 4.9 cm, image 53, series 2. No surrounding fluid. No retrosternal hematoma, sternal fracture, thoracic vertebral body or rib fracture. No pneumothorax. No inflammatory change or subcutaneous hematoma in the chest wall or back. Heart size within normal limits. No pleural or pericardial effusion. Trachea and mainstem bronchi are patent. Thyroid partly obscured and does not appear enlarged. Abdomen CT dictated under separate heading. PRESSION: 1. No CT evidence of an acute or traumatic abnormality in the chest. 2. Advanced atherosclerotic disease with aortic arch and distal thoracic aortic aneurysms, as above. ACT 112: Positive. There are findings on this examination that require communication between the performing entity and the patient following Patient Test Result Information Act ([place] ACT 112) guidelines. Electronically signed by Sammi Huitron 04-25-2025 4:54 PM
--- NOTE | 2025-04-25 17:27 | CT Scan Report ---
EXAMINATION: Abdomen and pelvis CT with CLINICAL HISTORY: Fall, left-sided pain PRIORS: CT 8 04/14/2025 TECHNIQUE: Contiguous axial images were obtained through the abdomen and pelvis with the use of intravenous contrast. Sagittal and coronal reformations are supplied. 93 mL Optiray 320 IV was used. FINDINGS: The aorta was recently evaluated with CTA 04/14/2025. Allowing for this, no new aortic injury identified. No solid organ laceration or subcapsular hematoma. Postsurgical change of the bowel in the right upper quadrant. No hemoperitoneum, ascites or extraluminal gas. The kidneys enhance symmetrically. The left ureteral stent is present with the proximal coiled aspect slightly low-lying in the renal pelvis with mild to moderate hydronephrosis and hydroureter, unchanged. Distal tip terminates in the urinary bladder unchanged in position. Urinary bladder is distended and morphologically unremarkable. The uterus is not clearly identified and may be present and atrophic. No free fluid in the pelvis. Advanced diverticulosis of the sigmoid colon noted. Small amount of formed stool present in the colon. No dilated loops of bowel. No subcutaneous hematoma or inflammatory change in the abdominal wall or back. Mild to moderate osseous demineralization. No acute displaced fracture identified, allowing for this. Moderate facet hypertrophic changes throughout the lumbar spine, especially at the facet joints. No displaced left hip fracture. IMPRESSION: 1. No CT evidence of an acute or traumatic abnormality in the abdomen or pelvis. 2. Atherosclerotic abdominalaortic aneurysm which was recently evaluated with CTA 04/14/2025. Please refer to that report. 3. Left ureteral stent with possibly low-lying proximal stent coiled at the ureterovesicular junction with hydronephrosis. ACT 112: Positive. There are findings on this examination that require communication between the performing entity and the patient following Patient Test Result Information Act ([place] ACT 112) guidelines. Electronically signed by Sammi Huitron 04-25-2025 5:27 PM
[2025-04-25] MEDS ORDERED: FLUTICASONE PROPIONATE NA SPR 16 GM BTL PRN (17:42)
[2025-04-25] MEDS ORDERED: ACETAMINOPHEN 500 MG TAB PO PRN (17:42)
[2025-04-25] MEDS ORDERED: ALBUTEROL HFA 8 GM INHALER INH PRN (17:42)
[2025-04-25] MEDS: cefTRIAXone SODIUM 2,000 MG/50 ML BAG IV STA (17:44)
--- NOTE | 2025-04-25 17:52 | History & Physical Report ---
Date of Service April 25, 2025 Assessment & Plan (1) Generalized weakness: Plan: -pt with frequent admissions for fall -possibly 2nd to current UTI -PT/OT -consider possible placement at this time (2) UTI (urinary tract infection): Plan: -UA + for UTI -f/u urine culture and sensitivity -rocephin (3) AAA (abdominal aortic aneurysm) without rupture: Plan: -stable -recent CT showing no change (4) TEJ (generalized anxiety disorder): Plan: -alprazolam -trazodone (5) Hypertension: Plan: -amlodipine -coreg (6) Intractable abdominal pain: Plan: -oxycodone prn (7) Hyperlipidemia: Plan: -crestor Plan Heparin SQ for DVT px History of Present Illness Chief Complaint: Fall Primary Care Provider: Adriel Whitaker MD Pt is a 74 y/o female with pmh of HLD,HTN, mesenteric artery stenosis; AAA, chronic abdominal pain, anxiety, who presents s/p fall with left upper abdominal pain. Pt has been feeling weak and her muscles gave out during using her walker and she fell to the ground. In the ER her trauma series CT scans were negative for any injury. She was recently discharge from the hospital earlier this week after being treated for intractable abdominal pain. In the ER her UA was + for UTI. She was given a dose of rocephin and will be admitted for further treatment of generalized weakness, ambulatory dysfunction, and UTI. Allergies Allergy/AdvReac Type Severity Reaction Status Date / Time salicylates AdvReac Intermediate INTOLERANCE Verified 04/25/25 17:15 Home Medications Medication Instructions Recorded Confirmed Type albuterol sulfate 90 mcg/actuation 2 puff inhalation Q6H PRN 08/23/22 04/25/25 History aerosol inhaler Shortness Of Breath Or Wheezing alprazolam 0.25 mg tablet 0.25 mg PO TID PRN anxiety 05/02/23 04/25/25 History paroxetine HCl 12.5 mg 12.5 mg PO QAM 05/02/23 04/25/25 History tablet,extended release 24 hr aspirin 81 mg chewable tablet 81 mg PO QAM 09/21/23 04/25/25 History carvedilol 3.125 mg tablet 3.125 mg PO AMHS 09/21/23 04/25/25 History docusate sodium 100 mg capsule 100 mg PO BID PRN Constipation #30 02/25/24 04/25/25 Rx caps fluticasone propionate 50 2 spray NA DAILY PRN Nasal 02/25/24 04/25/25 Rx mcg/actuation nasal congestion #16 grams spray,suspension amlodipine 5 mg tablet 5 mg PO QAM 12/19/24 04/25/25 History rosuvastatin 20 mg tablet 20 mg PO QAM 12/19/24 04/25/25 History acetaminophen 500 mg tablet 500 mg PO Q4H PRN PAIN/FEVER 02/27/25 04/25/25 History (Tylenol Extra Strength) trazodone 50 mg tablet 50 mg PO HS PRN Sleep 02/27/25 04/25/25 History oxycodone 5 mg tablet 5 mg PO Q4H PRN pain #10 tabs 03/26/25 04/25/25 Rx polyethylene glycol 3350 17 gram 17 g PO DAILY PRN constipation #30 03/26/25 04/25/25 Rx oral powder packet (Miralax) ea pantoprazole 40 mg tablet,delayed 40 mg PO BID 03/30/25 04/25/25 History release famotidine 10 mg tablet 10 mg PO BID #30 tabs 04/05/25 04/25/25 Rx gabapentin 100 mg capsule 100 mg PO BID #60 caps 04/23/25 04/25/25 Rx oxybutynin chloride 5 mg tablet 5 mg PO BID #60 tabs 04/23/25 04/25/25 Rx tamsulosin 0.4 mg capsule 0.4 mg PO QAM #30 caps 04/23/25 04/25/25 Rx Past Med/Surg History Problem List (Updated 04/26/25 @ 00:08 by Background Janak) UTI (urinary tract infection) AAA (abdominal aortic aneurysm) without rupture Insomnia TEJ (generalized anxiety disorder) Ureteral stent present Dyspnea (Acute) Abdominal pain, lower (Acute) Abdominal aortic aneurysm (AAA) greater than 5.0 cm in diameter in female S/P ureteral stent placement Colitis Acute hypokalemia (Acute) Intractable abdominal pain (Acute) Hypertension (Acute) Difficulty performing activity of daily living (ADL) (Acute) Fracture of shoulder (Acute) Abdominal pain (Acute) Abdominal pain (Acute) Proximal humerus fracture Acute hypokalemia Unable to care for self Opioid-induced constipation (Acute) Fecal impaction in rectum (Acute) Closed fracture of shoulder (Acute) Moderate protein-calorie malnutrition (Acute) Polypharmacy (Acute) Underweight (BMI < 18.5) Age-related physical debility (Acute) Frailty syndrome in geriatric patient (Acute) Simple chronic bronchitis Hyperlipidemia (Acute) 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) Hypertension (Chronic) 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) Carotid artery disease (Chronic) Hypertrophic cardiomyopathy (Chronic) Recurrent falls (Chronic) Anxiety (Chronic) Medical History Hydronephrosis of left kidney Acute left flank pain Elevated troponin level not due myocardial infarction Syncope COVID-19 Sigmoid diverticulitis Diverticulitis Uncontrolled hypertension Acute dehydration Weakness AAA (abdominal aortic aneurysm) Surgical History S/P tubal ligation Family History Other Diabetes Social History Smoking Status: Former smoker Tobacco Type: Cigarettes packs per day: 0.5; Cigarettes Per Day: 1/4 ppd; Second Hand Exposure: No; Do You Dip or Chew Tobacco: No; Tobacco Cessation Education Requested by Patient: No Hx Alcohol Use: No Hx Substance Use: No Preferred Language: Portuguese Communication Ability: Effective Cardiac Cath Tech Required: No Beliefs That Will Affect Care: None Current Living Situation: Spouse Current Living Situation Comment: [facility]. Feels Safe at Home: Yes Safety Concerns: Feels Safe At This Time Assistive Devices: Walker Review of Systems Review of Systems: CONST: Negative for fever, body aches and chills. + for weakness HENT: Negative for neck pain/stiffness, headache, congestion, sore throat, swelling. EYES: Negative for discharge/pain or vision changes. RESP: Negative for cough/hemoptysis and shortness of breath. CV: Negative chest pain, difficulty breathing, palpitations. ABD: Negative pain, nausea, vomiting. : Negative increase frequency, dysuria, blood in urine or stool. MUSC: +for left upper abdominal pain SKIN: Negative rash, lesions/sores. NEURO: Negative headache, dizziness, weakness. Physical Exam Physical Exam: GENERAL APPEARANCE NAD, activity normal for age, well developed/ well nourished, no cyanosis, pallor, or diaphoresis. EYES lids/conjunctiva normal. EARS/NOSE/THROAT Mucous membranes moist, nares normal, lips/teeth normal uvula midline without oral pharyngeal erythema, exudate or swelling TMs normal bilaterally. No lymphangitis/lymphedema. HEAD/NECK normocephalic atraumatic, no facial trauma, neck is supple. RESPIRATORY respiratory effort normal, speaks in full sentences, no tripod position, no accessory muscle use. Lungs clear to auscultation without rhonchi, wheezes, rales CARDIAC Regular rate and rhythm, no edema. ABDOMINAL Soft, ND/NT. No evidence of fluid wave. No pulsatile masses on exam, rebound tenderness, Morataya sign or pain over Mcburney's point. MUSCLES/EXTREMITIES No abnormal range of motion, no swelling. SKIN Warm, pink and dry. No rashes, dermatoses, petechiae or lesions. NEUROLOGICAL Speech is clear and appropriate. Normal level of consciousness. Gait and coordination are normal. 5/5 strength in all extremities. PSYCH Normal mood and affect. Judgement/competence is appropriate Results & Data Results & Data Vital Signs (Past 12 Hours) Vital Signs Temp Pulse Resp BP Pulse Ox 04/25/25 16:34 60 12 173/90 H 98 04/25/25 14:13 36.7 C 69 18 137/71 98 04/25/25 14:12 66 PG Care Time/CCT Total # of Minutes Spent Total Time Spent with Patient: Total time spent is greater than 50% in coordination of care (as documented) at patient's floor/unit and/or counseling patient: Coding Level of Care Code 74026 INT INP/OBS CARE 2/55MIN Diagnoses Generalized weakness R53.1 UTI (urinary tract infection) N39.0 AAA (abdominal aortic aneurysm) without rupture I71.40 TEJ (generalized anxiety disorder) F41.1 Hypertension I10 Intractable abdominal pain R10.9 Hyperlipidemia E78.5
[2025-04-25] MEDS: FAMOTIDINE 10 MG TABLET PO SCH (20:02)
[2025-04-25] MEDS: HEPARIN SOD 5,000 UNIT/0.5 ML VIAL SQ SCH (20:02)
[2025-04-25] MEDS: GABAPENTIN 100 MG CAP PO SCH (20:02)
--- NOTE | 2025-04-25 21:53 | Electrocardiogram Report ---
Test Reason : Blood Pressure : */* mmHG Vent. Rate : 64 BPM Atrial Rate : 64 BPM P-R Int : 182 ms QRS Dur : 64 ms QT Int : 412 ms P-R-T Axes : 77 40 84 degrees QTcB Int : 425 ms Normal sinus rhythm Normal ECG When compared with ECG of 20-Apr-2025 18:25, T wave inversion no longer evident in Lateral leads Confirmed by Raul Zhou ([id number]) on 04/25/2025 9:52:27 PM Referred By: Confirmed By: Raul Zhou
[2025-04-26] MEDS: ROSUVASTATIN CALCIUM 20 MG TAB PO SCH (08:23)
[2025-04-26] MEDS: ASPIRIN 81 MG ECTAB PO SCH (08:23)
[2025-04-26] MEDS: TAMSULOSIN HCL 0.4 MG CAP PO SCH (08:24)
[2025-04-26] MEDS: PARoxetine HCl CONTROLLED REL 12.5 MG TABCR PO SCH (08:24)
--- NOTE | 2025-04-26 10:24 | Hospitalist Progress Note ---
Date of Service April 26, 2025 Assessment & Plan (1) Generalized weakness: Plan: -pt with frequent admissions for fall -possibly 2nd to current UTI -PT/OT -consider possible placement at this time (2) UTI (urinary tract infection): Plan: -UA + for UTI -f/u urine culture and sensitivity -rocephin (3) AAA (abdominal aortic aneurysm) without rupture: Plan: -stable -recent CT showing no change (4) TEJ (generalized anxiety disorder): Plan: -alprazolam -trazodone (5) Hypertension: Plan: -amlodipine -coreg (6) Intractable abdominal pain: Plan: -oxycodone prn (7) Hyperlipidemia: Plan: -crestor Plan Heparin SQ for DVT px Admission and Anticipated Discharge Date Admission Date: April 25, 2025 Subjective No events overnight. Pt resting comfortably in bed. Review of Systems Review of Systems: CONST: Negative for fever, body aches and chills. + for weakness HENT: Negative for neck pain/stiffness, headache, congestion, sore throat, swelling. EYES: Negative for discharge/pain or vision changes. RESP: Negative for cough/hemoptysis and shortness of breath. CV: Negative chest pain, difficulty breathing, palpitations. ABD: Negative pain, nausea, vomiting. : Negative increase frequency, dysuria, blood in urine or stool. MUSC: +for left upper abdominal pain SKIN: Negative rash, lesions/sores. NEURO: Negative headache, dizziness, weakness. Physical Exam Physical Exam: GENERAL APPEARANCE NAD, activity normal for age, well developed/ well nourished, no cyanosis, pallor, or diaphoresis. EYES lids/conjunctiva normal. EARS/NOSE/THROAT Mucous membranes moist, nares normal, lips/teeth normal uvula midline without oral pharyngeal erythema, exudate or swelling TMs normal bilaterally. No lymphangitis/lymphedema. HEAD/NECK normocephalic atraumatic, no facial trauma, neck is supple. RESPIRATORY respiratory effort normal, speaks in full sentences, no tripod position, no accessory muscle use. Lungs clear to auscultation without rhonchi, wheezes, rales CARDIAC Regular rate and rhythm, no edema. ABDOMINAL Soft, ND/NT. No evidence of fluid wave. No pulsatile masses on exam, rebound tenderness, Morataya sign or pain over Mcburney's point. MUSCLES/EXTREMITIES No abnormal range of motion, no swelling. SKIN Warm, pink and dry. No rashes, dermatoses, petechiae or lesions. NEUROLOGICAL Speech is clear and appropriate. Normal level of consciousness. Gait and coordination are normal. 5/5 strength in all extremities. PSYCH Normal mood and affect. Judgement/competence is appropriate Results & Data Results & Data Vital Signs (Past 12 Hours) Vital Signs Temp Pulse Pulse Resp BP Pulse Ox O2 Del Method 04/26/25 07:59 36.7 C 72 12 102/60 94 Room Air 04/26/25 06:56 36.8 C 68 16 106/63 95 Room Air PG Care Time/CCT Total # of Minutes Spent Total Time Spent with Patient: Total time spent is greater than 50% in coordination of care (as documented) at patient's floor/unit and/or counseling patient: Coding Level of Care Code 08073 SUB INP/OBS CARE 2/35MIN Diagnoses Generalized weakness R53.1 UTI (urinary tract infection) N39.0 AAA (abdominal aortic aneurysm) without rupture I71.40 TEJ (generalized anxiety disorder) F41.1 Hypertension I10 Intractable abdominal pain R10.9 Hyperlipidemia E78.5
[2025-04-26] MEDS: ACETAMINOPHEN 325 MG TAB PO PRN (10:29)
[2025-04-26] MEDS: ONDANSETRON INJ 2 MG/ML 2 ML VIAL IV PRN (14:34)
[2025-04-26] MEDS: cefTRIAXone SODIUM 1,000 MG/50 ML BAG IV SCH (17:33)
--- NOTE | 2025-04-27 09:58 | Hospitalist Progress Note ---
Date of Service April 27, 2025 Assessment & Plan (1) Generalized weakness: Plan: -pt with frequent admissions for fall -possibly 2nd to current UTI -PT/OT -consider possible placement at this time (2) UTI (urinary tract infection): Plan: -UA + for UTI -f/u urine culture and sensitivity -rocephin (3) AAA (abdominal aortic aneurysm) without rupture: Plan: -stable -recent CT showing no change (4) TEJ (generalized anxiety disorder): Plan: -alprazolam -trazodone (5) Hypertension: Plan: -amlodipine -coreg (6) Intractable abdominal pain: Plan: -oxycodone prn (7) Hyperlipidemia: Plan: -crestor Plan Heparin SQ for DVT px Admission and Anticipated Discharge Date Admission Date: April 25, 2025 Subjective No events overnight. Pt resting comfortably in bed. Review of Systems Review of Systems: CONST: Negative for fever, body aches and chills. + for weakness HENT: Negative for neck pain/stiffness, headache, congestion, sore throat, swelling. EYES: Negative for discharge/pain or vision changes. RESP: Negative for cough/hemoptysis and shortness of breath. CV: Negative chest pain, difficulty breathing, palpitations. ABD: Negative pain, nausea, vomiting. : Negative increase frequency, dysuria, blood in urine or stool. MUSC: +for left upper abdominal pain SKIN: Negative rash, lesions/sores. NEURO: Negative headache, dizziness, weakness. Physical Exam Physical Exam: GENERAL APPEARANCE NAD, activity normal for age, well developed/ well nourished, no cyanosis, pallor, or diaphoresis. EYES lids/conjunctiva normal. EARS/NOSE/THROAT Mucous membranes moist, nares normal, lips/teeth normal uvula midline without oral pharyngeal erythema, exudate or swelling TMs normal bilaterally. No lymphangitis/lymphedema. HEAD/NECK normocephalic atraumatic, no facial trauma, neck is supple. RESPIRATORY respiratory effort normal, speaks in full sentences, no tripod position, no accessory muscle use. Lungs clear to auscultation without rhonchi, wheezes, rales CARDIAC Regular rate and rhythm, no edema. ABDOMINAL Soft, ND/NT. No evidence of fluid wave. No pulsatile masses on exam, rebound tenderness, Morataya sign or pain over Mcburney's point. MUSCLES/EXTREMITIES No abnormal range of motion, no swelling. SKIN Warm, pink and dry. No rashes, dermatoses, petechiae or lesions. NEUROLOGICAL Speech is clear and appropriate. Normal level of consciousness. Gait and coordination are normal. 5/5 strength in all extremities. PSYCH Normal mood and affect. Judgement/competence is appropriate Results & Data Results & Data Vital Signs (Past 12 Hours) Vital Signs Temp Pulse Pulse Resp BP Pulse Ox O2 Del Method 04/27/25 09:21 62 16 99/64 L 97 Room Air 04/27/25 08:00 36.8 C 70 16 95/61 L 94 Room Air 04/27/25 04:11 37.0 C 60 18 111/69 93 Room Air 04/26/25 22:36 36.8 C 61 18 121/56 L 95 Room Air PG Care Time/CCT Total # of Minutes Spent Total Time Spent with Patient: Total time spent is greater than 50% in coordination of care (as documented) at patient's floor/unit and/or counseling patient: Coding Level of Care Code 35537 SUB INP/OBS CARE 2/35MIN Diagnoses Generalized weakness R53.1 UTI (urinary tract infection) N39.0 AAA (abdominal aortic aneurysm) without rupture I71.40 TEJ (generalized anxiety disorder) F41.1 Hypertension I10 Intractable abdominal pain R10.9 Hyperlipidemia E78.5
[2025-04-27] MEDS: SODIUM CHLORIDE 0.65% NA SOLN 45 ML (OCEAN) PRN (12:52)
[2025-04-27] MEDS: DOCUSATE SODIUM 100 MG CAP PO PRN (19:59)
--- NOTE | 2025-04-28 10:46 | Hospitalist Progress Note ---
Date of Service April 28, 2025 Assessment & Plan (1) Generalized weakness: Plan: -pt with frequent admissions for fall -possibly 2nd to current UTI -PT/OT -consider possible placement at this time (2) UTI (urinary tract infection): Plan: -UA + for UTI -f/u urine culture and sensitivity -rocephin (3) AAA (abdominal aortic aneurysm) without rupture: Plan: -stable -recent CT showing no change (4) TEJ (generalized anxiety disorder): Plan: -alprazolam -trazodone (5) Hypertension: Plan: -amlodipine -coreg (6) Intractable abdominal pain: Plan: -oxycodone prn (7) Hyperlipidemia: Plan: -crestor Plan Heparin SQ for DVT px Admission and Anticipated Discharge Date Admission Date: April 25, 2025 Subjective No events overnight. Pt resting comfortably in bed. Review of Systems Review of Systems: CONST: Negative for fever, body aches and chills. + for weakness HENT: Negative for neck pain/stiffness, headache, congestion, sore throat, swelling. EYES: Negative for discharge/pain or vision changes. RESP: Negative for cough/hemoptysis and shortness of breath. CV: Negative chest pain, difficulty breathing, palpitations. ABD: Negative pain, nausea, vomiting. : Negative increase frequency, dysuria, blood in urine or stool. MUSC: +for left upper abdominal pain SKIN: Negative rash, lesions/sores. NEURO: Negative headache, dizziness, weakness. Physical Exam Physical Exam: GENERAL APPEARANCE NAD, activity normal for age, well developed/ well nourished, no cyanosis, pallor, or diaphoresis. EYES lids/conjunctiva normal. EARS/NOSE/THROAT Mucous membranes moist, nares normal, lips/teeth normal uvula midline without oral pharyngeal erythema, exudate or swelling TMs normal bilaterally. No lymphangitis/lymphedema. HEAD/NECK normocephalic atraumatic, no facial trauma, neck is supple. RESPIRATORY respiratory effort normal, speaks in full sentences, no tripod position, no accessory muscle use. Lungs clear to auscultation without rhonchi, wheezes, rales CARDIAC Regular rate and rhythm, no edema. ABDOMINAL Soft, ND/NT. No evidence of fluid wave. No pulsatile masses on exam, rebound tenderness, Morataya sign or pain over Mcburney's point. MUSCLES/EXTREMITIES No abnormal range of motion, no swelling. SKIN Warm, pink and dry. No rashes, dermatoses, petechiae or lesions. NEUROLOGICAL Speech is clear and appropriate. Normal level of consciousness. Gait and coordination are normal. 5/5 strength in all extremities. PSYCH Normal mood and affect. Judgement/competence is appropriate Results & Data Results & Data Vital Signs (Past 12 Hours) Vital Signs Temp Pulse Resp BP BP Pulse Ox O2 Del Method 04/28/25 09:08 74 130/73 04/28/25 07:42 Room Air 04/28/25 07:15 37 C 83 18 137/79 96 Room Air 04/27/25 23:09 36.8 C 62 18 161/69 H 96 Room Air PG Care Time/CCT Total # of Minutes Spent Total Time Spent with Patient: Total time spent is greater than 50% in coordination of care (as documented) at patient's floor/unit and/or counseling patient: Coding Level of Care Code 40106 SUB INP/OBS CARE 2/35MIN Diagnoses Generalized weakness R53.1 UTI (urinary tract infection) N39.0 AAA (abdominal aortic aneurysm) without rupture I71.40 TEJ (generalized anxiety disorder) F41.1 Hypertension I10 Intractable abdominal pain R10.9 Hyperlipidemia E78.5
[2025-04-28] MEDS ORDERED: MELATONIN 3 MG TAB PO PRN (22:19)
--- NOTE | 2025-04-29 10:42 | Hospitalist Progress Note ---
Date of Service April 29, 2025 Assessment & Plan (1) Generalized weakness: Plan: -pt with frequent admissions for fall -possibly 2nd to current UTI -PT/OT -consider possible placement at this time (2) UTI (urinary tract infection): Plan: -UA + for UTI -f/u urine culture and sensitivity -rocephin (3) AAA (abdominal aortic aneurysm) without rupture: Plan: -stable -recent CT showing no change (4) TEJ (generalized anxiety disorder): Plan: -alprazolam -trazodone (5) Hypertension: Plan: -amlodipine -coreg (6) Intractable abdominal pain: Plan: -oxycodone prn (7) Hyperlipidemia: Plan: -crestor Plan Heparin SQ for DVT px Awaiting Rehab placement Admission and Anticipated Discharge Date Admission Date: April 25, 2025 Subjective No events overnight. Pt resting comfortably in bed. Review of Systems Review of Systems: CONST: Negative for fever, body aches and chills. + for weakness HENT: Negative for neck pain/stiffness, headache, congestion, sore throat, swelling. EYES: Negative for discharge/pain or vision changes. RESP: Negative for cough/hemoptysis and shortness of breath. CV: Negative chest pain, difficulty breathing, palpitations. ABD: Negative pain, nausea, vomiting. : Negative increase frequency, dysuria, blood in urine or stool. MUSC: +for left upper abdominal pain SKIN: Negative rash, lesions/sores. NEURO: Negative headache, dizziness, weakness. Physical Exam Physical Exam: GENERAL APPEARANCE NAD, activity normal for age, well developed/ well nourished, no cyanosis, pallor, or diaphoresis. EYES lids/conjunctiva normal. EARS/NOSE/THROAT Mucous membranes moist, nares normal, lips/teeth normal uvula midline without oral pharyngeal erythema, exudate or swelling TMs normal bilaterally. No lymphangitis/lymphedema. HEAD/NECK normocephalic atraumatic, no facial trauma, neck is supple. RESPIRATORY respiratory effort normal, speaks in full sentences, no tripod position, no accessory muscle use. Lungs clear to auscultation without rhonchi, wheezes, rales CARDIAC Regular rate and rhythm, no edema. ABDOMINAL Soft, ND/NT. No evidence of fluid wave. No pulsatile masses on exam, rebound tenderness, Morataya sign or pain over Mcburney's point. MUSCLES/EXTREMITIES No abnormal range of motion, no swelling. SKIN Warm, pink and dry. No rashes, dermatoses, petechiae or lesions. NEUROLOGICAL Speech is clear and appropriate. Normal level of consciousness. Gait and coordination are normal. 5/5 strength in all extremities. PSYCH Normal mood and affect. Judgement/competence is appropriate Results & Data Results & Data Vital Signs (Past 12 Hours) Vital Signs Temp Pulse Pulse Resp BP BP Pulse Ox 04/29/25 08:48 04/29/25 07:48 36.9 C 72 18 110/52 L 93 04/28/25 23:08 36.6 C 70 18 139/77 95 O2 Del Method 04/29/25 08:48 Room Air 04/29/25 07:48 Room Air 04/28/25 23:08 Room Air PG Care Time/CCT Total # of Minutes Spent Total Time Spent with Patient: Total time spent is greater than 50% in coordination of care (as documented) at patient's floor/unit and/or counseling patient: Coding Level of Care Code 50452 SUB INP/OBS CARE 2/35MIN Diagnoses Generalized weakness R53.1 UTI (urinary tract infection) N39.0 AAA (abdominal aortic aneurysm) without rupture I71.40 TEJ (generalized anxiety disorder) F41.1 Hypertension I10 Intractable abdominal pain R10.9 Hyperlipidemia E78.5
--- NOTE | 2025-04-30 09:41 | Hospitalist Progress Note ---
Date of Service April 30, 2025 Assessment & Plan (1) Generalized weakness: Plan: -pt with frequent admissions for fall -possibly 2nd to current UTI -PT/OT -awaiting rehab placement at this time (2) UTI (urinary tract infection): Plan: -UA + for UTI -f/u urine culture and sensitivity -rocephin (3) AAA (abdominal aortic aneurysm) without rupture: Plan: -stable -recent CT showing no change (4) TEJ (generalized anxiety disorder): Plan: -alprazolam -trazodone (5) Hypertension: Plan: -amlodipine -coreg (6) Intractable abdominal pain: Plan: -oxycodone prn (7) Hyperlipidemia: Plan: -crestor Plan Heparin SQ for DVT px Awaiting Rehab placement Admission and Anticipated Discharge Date Admission Date: April 25, 2025 Subjective No events overnight. Pt resting comfortably in bed. Review of Systems Review of Systems: CONST: Negative for fever, body aches and chills. + for weakness HENT: Negative for neck pain/stiffness, headache, congestion, sore throat, swe lling. EYES: Negative for discharge/pain or vision changes. RESP: Negative for cough/hemoptysis and shortness of breath. CV: Negative chest pain, difficulty breathing, palpitations. ABD: Negative pain, nausea, vomiting. : Negative increase frequency, dysuria, blood in urine or stool. MUSC: +for left upper abdominal pain SKIN: Negative rash, lesions/sores. NEURO: Negative headache, dizziness, weakness. Physical Exam Physical Exam: GENERAL APPEARANCE NAD, activity normal for age, well developed/ well nourished, no cyanosis, pallor, or diaphoresis. EYES lids/conjunctiva normal. EARS/NOSE/THROAT Mucous membranes moist, nares normal, lips/teeth normal uvula midline without oral pharyngeal erythema, exudate or swelling TMs normal bilaterally. No lymphangitis/lymphedema. HEAD/NECK normocephalic atraumatic, no facial trauma, neck is supple. RESPIRATORY respiratory effort normal, speaks in full sentences, no tripod position, no accessory muscle use. Lungs clear to auscultation without rhonchi, wheezes, rales CARDIAC Regular rate and rhythm, no edema. ABDOMINAL Soft, ND/NT. No evidence of fluid wave. No pulsatile masses on exam, rebound tenderness, [place] sign or pain over Mcburney's point. MUSCLES/EXTREMITIES No abnormal range of motion, no swelling. SKIN Warm, pink and dry. No rashes, dermatoses, petechiae or lesions. NEUROLOGICAL Speech is clear and appropriate. Normal level of consciousness. Gait and coordination are normal. 5/5 strength in all extremities. PSYCH Normal mood and affect. Judgement/competence is appropriate Results & Data Results & Data Vital Signs (Past 12 Hours) Vital Signs Temp Pulse Resp BP Pulse Ox O2 Del Method 04/30/25 07:15 36.8 C 73 17 177/80 H 96 Room Air PG Care Time/CCT Total # of Minutes Spent Total Time Spent with Patient: Total time spent is greater than 50% in coordination of care (as documented) at patient's floor/unit and/or counseling patient: Coding Level of Care Code 11136 SUB INP/OBS CARE 2/35MIN Diagnoses Generalized weakness R53.1 UTI (urinary tract infection) N39.0 AAA (abdominal aortic aneurysm) without rupture I71.40 TEJ (generalized anxiety disorder) F41.1 Hypertension I10 Intractable abdominal pain R10.9 Hyperlipidemia E78.5
[2025-04-30 20:02] VITALS: RESP 16
[2025-05-01 07:14] VITALS: BP 135/76; PULSE 71; TEMP 98.2; O2SAT 96
--- NOTE | 2025-05-01 09:02 | Hospitalist Progress Note ---
Date of Service May 01, 2025 Assessment & Plan (1) Generalized weakness: Plan: -pt with frequent admissions for fall -possibly 2nd to current UTI -PT/OT -awaiting rehab placement at this time (2) UTI (urinary tract infection): Plan: -UA + for UTI -f/u urine culture and sensitivity -rocephin (3) AAA (abdominal aortic aneurysm) without rupture: Plan: -stable -recent CT showing no change (4) TEJ (generalized anxiety disorder): Plan: -alprazolam -trazodone (5) Hypertension: Plan: -amlodipine -coreg (6) Intractable abdominal pain: Plan: -oxycodone prn (7) Hyperlipidemia: Plan: -crestor Plan Heparin SQ for DVT px Awaiting Rehab placement Admission and Anticipated Discharge Date Admission Date: April 25, 2025 Subjective No events overnight. Pt resting comfortably in bed. Review of Systems Review of Systems: CONST: Negative for fever, body aches and chills. + for weakness HENT: Negative for neck pain/stiffness, headache, congestion, sore throat, swe lling. EYES: Negative for discharge/pain or vision changes. RESP: Negative for cough/hemoptysis and shortness of breath. CV: Negative chest pain, difficulty breathing, palpitations. ABD: Negative pain, nausea, vomiting. : Negative increase frequency, dysuria, blood in urine or stool. MUSC: +for left upper abdominal pain SKIN: Negative rash, lesions/sores. NEURO: Negative headache, dizziness, weakness. Physical Exam Physical Exam: GENERAL APPEARANCE NAD, activity normal for age, well developed/ well nourished, no cyanosis, pallor, or diaphoresis. EYES lids/conjunctiva normal. EARS/NOSE/THROAT Mucous membranes moist, nares normal, lips/teeth normal uvula midline without oral pharyngeal erythema, exudate or swelling TMs normal bilaterally. No lymphangitis/lymphedema. HEAD/NECK normocephalic atraumatic, no facial trauma, neck is supple. RESPIRATORY respiratory effort normal, speaks in full sentences, no tripod position, no accessory muscle use. Lungs clear to auscultation without rhonchi, wheezes, rales CARDIAC Regular rate and rhythm, no edema. ABDOMINAL Soft, ND/NT. No evidence of fluid wave. No pulsatile masses on exam, rebound tenderness, [place] sign or pain over Mcburney's point. MUSCLES/EXTREMITIES No abnormal range of motion, no swelling. SKIN Warm, pink and dry. No rashes, dermatoses, petechiae or lesions. NEUROLOGICAL Speech is clear and appropriate. Normal level of consciousness. Gait and coordination are normal. 5/5 strength in all extremities. PSYCH Normal mood and affect. Judgement/competence is appropriate Results & Data Results & Data Vital Signs (Past 12 Hours) Vital Signs Temp Pulse Resp BP Pulse Ox O2 Del Method 05/01/25 07:13 36.8 C 71 16 135/76 96 Room Air PG Care Time/CCT Total # of Minutes Spent Total Time Spent with Patient: Total time spent is greater than 50% in coordination of care (as documented) at patient's floor/unit and/or counseling patient: Coding Level of Care Code 76509 SUB INP/OBS CARE 2/35MIN Diagnoses Generalized weakness R53.1 UTI (urinary tract infection) N39.0 AAA (abdominal aortic aneurysm) without rupture I71.40 TEJ (generalized anxiety disorder) F41.1 Hypertension I10 Intractable abdominal pain R10.9 Hyperlipidemia E78.5
[2025-05-01] MEDS: POLYETHYLENE (MIRALAX) 17 GM PACK PO PRN (09:28)
--- NOTE | 2025-05-01 09:47 | Discharge Summary ---
Discharge Summary Date of Service May 01, 2025 Principal Dx & Hospital Course #1 = Principal Diagnosis (1) Generalized weakness: -pt with frequent admissions for fall -possibly 2nd to current UTI -PT/OT -awaiting rehab placement at this time (2) UTI (urinary tract infection): -UA + for UTI -f/u urine culture and sensitivity -rocephin (3) AAA (abdominal aortic aneurysm) without rupture: -stable -recent CT showing no change (4) TEJ (generalized anxiety disorder): -alprazolam -trazodone (5) Hypertension: -amlodipine -coreg (6) Intractable abdominal pain: -oxycodone prn (7) Hyperlipidemia: -crestor Plan Heparin SQ for DVT px Discharge to Center Care Admission HPI Per Admitting Provider Pt is a 74 y/o female with pmh of HLD,HTN, mesenteric artery stenosis; AAA, chronic abdominal pain, anxiety, who presents s/p fall with left upper abdominal pain. Pt has been feeling weak and her muscles gave out during using her walker and she fell to the ground. In the ER her trauma series CT scans were negative for any injury. She was recently discharge from the hospital earlier this week after being treated for intractable abdominal pain. In the ER her UA was + for UTI. She was given a dose of rocephin and will be admitted for further treatment of generalized weakness, ambulatory dysfunction, and UTI. Discharge Exam GENERAL APPEARANCE NAD, activity normal for age, well developed/ well nourished, no cyanosis, pallor, or diaphoresis. EYES lids/conjunctiva normal. EARS/NOSE/THROAT Mucous membranes moist, nares normal, lips/teeth normal uvula midline without oral pharyngeal erythema, exudate or swelling TMs normal bilaterally. No lymphangitis/lymphedema. HEAD/NECK normocephalic atraumatic, no facial trauma, neck is supple. RESPIRATORY respiratory effort normal, speaks in full sentences, no tripod position, no accessory muscle use. Lungs clear to auscultation without rhonchi, wheezes, rales CARDIAC Regular rate and rhythm, no edema. ABDOMINAL Soft, ND/NT. No evidence of fluid wave. No pulsatile masses on exam, rebound tenderness, [place] sign or pain over Mcburney's point. MUSCLES/EXTREMITIES No abnormal range of motion, no swelling. SKIN Warm, pink and dry. No rashes, dermatoses, petechiae or lesions. NEUROLOGICAL Speech is clear and appropriate. Normal level of consciousness. Gait and coordination are normal. 5/5 strength in all extremities. PSYCH Normal mood and affect. Judgement/competence is appropriate Discharge Plan Discharge Items Patient Disposition: Home - Self-Care Reason For Visit: FALL Discharge Diagnosis: generalized weakness Condition on Discharge: Fair Activity: Resume your previous activity Non-emergency contact: Primary Care Provider Call non-emergency contact if: you have any medication questions Follow-up/Referrals: Adriel Whitaker MD [Primary Care Provider] - Diet: Regular Addtl Attending Provider Instructions: Follow up with PMD in 2 weeks Pending Studies at Discharge: No Stand-Alone Forms: My [employer], Smoking Cessation Medications and DC Order Prescriptions: Continued albuterol sulfate 90 mcg/actuation HFA aerosol inhaler 2 puff INHALATION Q6H PRN (Reason: Shortness Of Breath Or Wheezing) alprazolam 0.25 mg tablet 0.25 mg PO TID PRN (Reason: anxiety ) paroxetine HCl 12.5 mg tablet extended release 24 hr 12.5 mg PO QAM carvedilol 3.125 mg tablet 3.125 mg PO AMHS aspirin 81 mg Tablet,Chewable 81 mg PO QAM oxycodone 5 mg Tablet 5 mg PO Q4H PRN (Reason: pain) Qty: 10 0RF polyethylene glycol 3350 [Miralax] 17 gram Powder In Packet 17 g PO DAILY PRN (Reason: constipation) Qty: 30 0RF tamsulosin 0.4 mg Capsule 0.4 mg PO QAM Qty: 30 0RF gabapentin 100 mg Capsule 100 mg PO BID Qty: 60 0RF oxybutynin chloride 5 mg Tablet 5 mg PO BID Qty: 60 0RF fluticasone propionate 50 mcg/actuation [place],Suspension 2 spray NA DAILY PRN (Reason: Nasal congestion) Qty: 16 0RF docusate sodium 100 mg Capsule 100 mg PO BID PRN (Reason: Constipation) Qty: 30 0RF rosuvastatin 20 mg tablet 20 mg PO QAM amlodipine 5 mg tablet 5 mg PO QAM Hold Instructions: Resume on 03/05/25. Discuss resuming with PCP Rx Instructions: HAS PREVIOUSLY BEEN ON HOLD, UNSURE IF STILL TAKING THIS MED. trazodone 50 mg Tablet 50 mg PO HS PRN (Reason: Sleep) acetaminophen [Tylenol Extra Strength] 500 mg tablet 500 mg PO Q4H PRN (Reason: PAIN/FEVER) pantoprazole 40 mg tablet,delayed release (DR/EC) 40 mg PO BID famotidine 10 mg Tablet 10 mg PO BID Qty: 30 0RF Discharge Orders: Discharge Order (Routine); Ordered 05/01/25 Ordered By: Velasquez Pressley Admission Data Admit Date/Time: 04/25/25 17:45 Attending Provider: Velasquez Pressley Admit Provider: Velasquez Pressley Primary Care Provider: Adriel Whitaker Other Providers: Velasquez Pressley; [place]; [facility] Stay Data Consultations 04/25/25 17:43 ED Decision to Admit Stat Diagnostic Imagining Performed 04/25/25 15:11 CT Abd and Pelvis [CT abd pelvis IV con only] Stat CT cervical spine wo con Stat CT chest diagnostic w con Stat CT head/brain wo con Stat Pending Results Patient Have Any Pending Studies at Discharge: No Discharge Instructions Given to Patient (Per Discharging Provider) Follow up with PMD in 2 weeks Total Time Total Time Spent Total Time Spent (In Minutes): 50 Coding Level of Care Code 90221 INP/OBS DISCH >30 MIN Diagnoses Generalized weakness R53.1 UTI (urinary tract infection) N39.0 AAA (abdominal aortic aneurysm) without rupture I71.40 TEJ (generalized anxiety disorder) F41.1 Hypertension I10 Intractable abdominal pain R10.9 Hyperlipidemia E78.5
== END 2025-05-01 11:07 ==
LOC: ED 14:06 → 3N 17:45 → INTOOBSV 17:45 → 3N 18:10